=== PATIENT | female | born 1950 | race Caucasian/White ===

== ENCOUNTER 2023-04-23 14:56 | Outpatient (OUT) | payer MEDICARE, OTHER, SELFPAY ==
[2023-04-23 15:39] LABS: Basophils Percent Auto 0.4 % (0.2-2.0); Eosinophils Absolute Auto 0.4 10^3/uL (0.0-0.7); Eosinophils Percent Auto 6.3 % (0.9-7.0); Hematocrit 45.7 % (36.0-48.0); Immature Granulocytes Abs Auto 0.01 10^3/uL (0.00-0.03); Immature Granulocytes Pct Auto 0.2 % (0.0-0.5); Lymphocytes Absolute Auto 1.6 10^3/uL (1.2-3.8); Lymphocytes Percent Auto 28.4 % (20.5-60.0); Mean Corpuscular HGB Conc 32.8 g/dL (29.9-35.2); Mean Corpuscular Hemoglobin 34.3 pg (26.7-34.0); Mean Corpuscular Volume 104.6 fL (81.0-99.0); Mean Platelet Volume 9.2 fL (9.5-13.5); Monocytes Absolute Auto 0.6 10^3/uL (0.3-0.8); Monocytes Percent Auto 10.9 % (1.7-12.0); Neutrophils Absolute Auto 3.1 10^3/uL (1.4-6.5); Neutrophils Percent Auto 53.8 % (43.0-75.0); Platelet Count 174 10^3/uL (150-450); Red Blood Count 4.37 10^6/uL (4.20-5.40); Red Cell Distribution Width 14.9 % (11.0-15.0); White Blood Count 5.7 10^3/uL (4.0-11.0)
[2023-04-23 15:52] LABS: Erythrocyte Sedimentation Rate 47 mm/hr (<=30)
[2023-04-23 15:55] LABS: Alanine Aminotransferase 21 U/L (14-59); Albumin Globulin Ratio 0.9; Albumin Level 3.5 g/dL (3.4-5.0); Alkaline Phosphatase 109 U/L (46-116); Anion Gap 8.1; Aspartate Amino Transferase 17 U/L (15-37); BUN Creatinine Ratio 16.2; Bilirubin Total 0.3 mg/dL (0.2-1.0); Calcium 9.1 mg/dL (8.5-10.1); Chloride 104 mmol/L (98-107); Estimated GFR (African America >60 (>=60); Estimated GFR (Non-African Ame >60 (>=60); Globulin 3.8 g/dL; Glucose 88 mg/dL (74-106); Potassium 4.1 mmol/L (3.5-5.1); Sodium 140 mmol/L (136-145); Total Protein 7.3 g/dL (6.4-8.2); Uric Acid 3.2 mg/dL (2.6-6.0)
== END 2023-04-23 14:57 | disposition home or self-care (01) ==
LOC: LAB 15:04
PROVIDERS: PCP Nurse Practitioner
DX: M05.79 Rheumatoid arthritis with rheumatoid factor of multiple sites without organ or systems involvement (principal); M15.0 Primary generalized (osteo)arthritis; Z79.899 Other long term (current) drug therapy; M10.09 Idiopathic gout, multiple sites
CPT/HCPCS: 36415; 80053; 84550; 85025; 85652

== ENCOUNTER 2023-07-29 08:23 | Outpatient (OUT) | payer MEDICARE, OTHER, SELFPAY ==
[2023-07-29 09:50] LABS: Free T3 2.49 pg/mL (2.18-3.98)
[2023-07-29 10:11] LABS: Free T4 1.34 ng/dL (0.76-1.46)
== END 2023-07-29 08:24 | disposition home or self-care (01) ==
PROVIDERS: PCP Nurse Practitioner; Visit Provider Nurse Practitioner
DX: E03.9 Hypothyroidism, unspecified (principal); E53.8 Deficiency of other specified B group vitamins
CPT/HCPCS: 36415; 82607; 84439; 84443; 84481

== ENCOUNTER 2023-07-29 08:26 | Outpatient (OUT) | payer MEDICARE, OTHER, SELFPAY ==
[2023-07-29 09:24] LABS: Basophils Percent Auto 0.3 % (0.2-2.0); Eosinophils Absolute Auto 0.3 10^3/uL (0.0-0.7); Eosinophils Percent Auto 4.6 % (0.9-7.0); Hematocrit 46.3 % (36.0-48.0); Hemoglobin 14.8 g/dL (12.0-16.0); Immature Granulocytes Abs Auto 0.02 10^3/uL (0.00-0.03); Immature Granulocytes Pct Auto 0.3 % (0.0-0.5); Lymphocytes Absolute Auto 1.2 10^3/uL (1.2-3.8); Lymphocytes Percent Auto 16.2 % (20.5-60.0); Mean Corpuscular Hemoglobin 33.9 pg (26.7-34.0); Mean Corpuscular Volume 105.9 fL (81.0-99.0); Monocytes Absolute Auto 0.5 10^3/uL (0.3-0.8); Monocytes Percent Auto 6.2 % (1.7-12.0); Neutrophils Absolute Auto 5.4 10^3/uL (1.4-6.5); Neutrophils Percent Auto 72.4 % (43.0-75.0); Platelet Count 186 10^3/uL (150-450); Red Blood Count 4.37 10^6/uL (4.20-5.40); Red Cell Distribution Width 14.3 % (11.0-15.0); White Blood Count 7.4 10^3/uL (4.0-11.0)
[2023-07-29 09:29] LABS: Alanine Aminotransferase 15 U/L (14-59); Albumin Globulin Ratio 0.8; Albumin Level 3.4 g/dL (3.4-5.0); Alkaline Phosphatase 92 U/L (46-116); Anion Gap 9.9; Aspartate Amino Transferase 19 U/L (15-37); BUN Creatinine Ratio 13.3; Bilirubin Total 0.5 mg/dL (0.2-1.0); Calcium 8.9 mg/dL (8.5-10.1); Carbon Dioxide 31.5 mmol/L (21.0-32.0); Chloride 99 mmol/L (98-107); Estimated GFR (African America >60 (>=60); Estimated GFR (Non-African Ame >60 (>=60); Globulin 4.1 g/dL; Glucose 156 mg/dL (74-106); Potassium 4.4 mmol/L (3.5-5.1); Sodium 136 mmol/L (136-145); Total Protein 7.5 g/dL (6.4-8.2); Uric Acid 3.1 mg/dL (2.6-6.0)
[2023-07-29 09:32] LABS: Erythrocyte Sedimentation Rate 66 mm/hr (<=30)
== END 2023-07-29 08:27 | disposition home or self-care (01) ==
LOC: LAB 08:28
PROVIDERS: PCP Nurse Practitioner
DX: E03.9 Hypothyroidism, unspecified (principal); E53.8 Deficiency of other specified B group vitamins; M05.79 Rheumatoid arthritis with rheumatoid factor of multiple sites without organ or systems involvement; M15.0 Primary generalized (osteo)arthritis; M10.09 Idiopathic gout, multiple sites; Z79.899 Other long term (current) drug therapy
CPT/HCPCS: 36415; 80053; 82607; 84439; 84443; 84481; 84550; 85025; 85652

== ENCOUNTER 2023-11-22 08:24 | Outpatient (OUT) | payer MEDICARE, OTHER, SELFPAY ==
[2023-11-22 09:21] LABS: Basophils Percent Auto 0.1 % (0.2-2.0); Eosinophils Absolute Auto 0.4 10^3/uL (0.0-0.7); Eosinophils Percent Auto 4.8 % (0.9-7.0); Hematocrit 45.6 % (36.0-48.0); Hemoglobin 14.5 g/dL (12.0-16.0); Immature Granulocytes Abs Auto 0.02 10^3/uL (0.00-0.03); Immature Granulocytes Pct Auto 0.2 % (0.0-0.5); Lymphocytes Percent Auto 11.8 % (20.5-60.0); Mean Corpuscular HGB Conc 31.8 g/dL (29.9-35.2); Mean Corpuscular Hemoglobin 33.5 pg (26.7-34.0); Mean Corpuscular Volume 105.3 fL (81.0-99.0); Mean Platelet Volume 9.2 fL (9.5-13.5); Monocytes Absolute Auto 0.5 10^3/uL (0.3-0.8); Monocytes Percent Auto 5.4 % (1.7-12.0); Neutrophils Absolute Auto 6.6 10^3/uL (1.4-6.5); Neutrophils Percent Auto 77.7 % (43.0-75.0); Platelet Count 165 10^3/uL (150-450); Red Blood Count 4.33 10^6/uL (4.20-5.40); Red Cell Distribution Width 14.4 % (11.0-15.0); White Blood Count 8.5 10^3/uL (4.0-11.0)
[2023-11-22 09:34] LABS: Alanine Aminotransferase 22 U/L (14-59); Albumin Globulin Ratio 0.8; Albumin Level 3.1 g/dL (3.4-5.0); Alkaline Phosphatase 95 U/L (46-116); Anion Gap 11.8; Aspartate Amino Transferase 19 U/L (15-37); BUN Creatinine Ratio 14.6; Bilirubin Total 0.4 mg/dL (0.2-1.0); Carbon Dioxide 29.7 mmol/L (21.0-32.0); Chloride 102 mmol/L (98-107); Estimated GFR (African America >60 (>=60); Estimated GFR (Non-African Ame >60 (>=60); Glucose 200 mg/dL (74-106); Potassium 4.5 mmol/L (3.5-5.1); Sodium 139 mmol/L (136-145); Total Protein 7.1 g/dL (6.4-8.2)
[2023-11-22 10:35] LABS: Erythrocyte Sedimentation Rate 70 mm/hr (<=30)
== END 2023-11-22 08:25 | disposition home or self-care (01) ==
LOC: LAB 08:26
PROVIDERS: PCP Nurse Practitioner; Visit Provider Registered Nurse
DX: M05.79 Rheumatoid arthritis with rheumatoid factor of multiple sites without organ or systems involvement (principal); M15.0 Primary generalized (osteo)arthritis; Z79.899 Other long term (current) drug therapy
CPT/HCPCS: 36415; 80053; 85025; 85652

== ENCOUNTER 2024-03-01 06:34 | Outpatient (OUT) | payer MEDICARE, OTHER, SELFPAY ==
--- OUTSIDE RECORDS SUMMARY | 2024-03-01 06:38 | XMS_ITS | CCD ---
Author Organization [facility] Care Team Providers Care Logistician Name Role Phone MAHDI, BLAINE Unavailable Unavailable MAHDI, BLAINE Unavailable Unavailable MAHDI, BLAINE Unavailable Unavailable MAHDI, BLAINE Unavailable Unavailable AICHHOLZ, IRRIGATIONIST BRUNILDA Primary Care Unavailable MISC, DOCTOR Attending Unavailable MISC, DR SMITH Consulting Unavailable MISC, DOCTOR Admitting Unavailable AICHHOLZ, IRRIGATIONIST BRUNILDA Consulting Unavailable AICHHOLZ, IRRIGATIONIST BRUNILDA Admitting Unavailable AICHHOLZ, IRRIGATIONIST BRUNILDA Primary Care Unavailable AICHHOLZ, IRRIGATIONIST BRUNILDA Attending Unavailable MISC, DR SMITH Admitting Unavailable AICHHOLZ, IRRIGATIONIST BRUNILDA Primary Care Unavailable MISC, DR SMITH Attending Unavailable MISC, DR SMITH Consulting Unavailable AICHHOLZ, IRRIGATIONIST BRUNILDA Attending Unavailable AICHHOLZ, IRRIGATIONIST BRUNILDA Consulting Unavailable AICHHOLZ, IRRIGATIONIST BRUNILDA Primary Care Unavailable AICHHOLZ, IRRIGATIONIST BRUNILDA Admitting Unavailable AICHHOLZ, IRRIGATIONIST BRUNILDA Primary Care Unavailable MISC, DR SMITH Attending Unavailable MISC, DR SMITH Consulting Unavailable AICHHOLZ, IRRIGATIONIST BRUNILDA Admitting Unavailable AICHHOLZ, IRRIGATIONIST BRUNILDA Primary Care Unavailable CARDENAS, DR KAPOOR Admitting Unavailable MOORE, DR KALEIGH Jameson Consulting Unavailable CARDENAS, DR KAPOOR Attending Unavailable CARDENAS, DR KAPOOR Consulting Unavailable MISC, DR SMITH Attending Unavailable AICHHOLZ, IRRIGATIONIST BRUNILDA Primary Care Unavailable MISC, DR SMITH Consulting Unavailable MISC, DR SMITH Admitting Unavailable Aichholz BETTING AGENCY MANAGER-IRRIGATIONIST, Brunilda J Primary Care Provider Allergies Allergy Classification Reported Allergen(s) Allergy Type Date of Onset Reaction(s) Facility (2 sources) Penicillins; Translations: [PENICILLINS] Propensity to adverse reactions to drug (disorder) 6 Rash [facility] (1 source) Piroxicam Drug Allergy 9 [facility] Medications Current Medications Medication Drug Class(es) Dates Sig (Normalized) Sig (Original) acetaminophen 325 mg oral tablet (1 source) Start: 10-30-2016 take 2 tablets by mouth every six hours as needed acetaminophen (TYLENOL) 325 mg tablet Take 650 mg by mouth every 6 (six) hours as needed. 0 10/30/2016 Active 0.8 ml adalimumab 50 mg/ml prefilled syringe (1 source) Tumor Necrosis Factor Kiya adalimumab (HUMIRA) 40 mg/0.8 mL injection Inject 40 mg under the skin Every 14 days. 0 Active allopurinol 300 mg oral tablet (1 source) Xanthine Oxidase Inhibitor take 1 tablet by mouth once daily allopurinol (ZYLOPRIM) 300 mg tablet Take 300 mg by mouth daily. 0 Active calcium citrate/vitamin D3 (CITRACAL REGULAR ORAL) (1 source) take 2 tablets by mouth once daily calcium citrate/vitamin D3 (CITRACAL REGULAR ORAL) Take 2 tablets by mouth daily. 0 Active calcium polycarbophil 625 mg oral tablet (1 source) take 1 tablet by mouth once daily polycarbophil (FIBERCON) 625 mg tablet Take 625 mg by mouth daily. 0 Active cetirizine hydrochloride 10 mg oral tablet (1 source) Histamine-1 Receptor Antagonist take 1 tablet by mouth once daily cetirizine (ZyrTEC) 10 mg tablet Take 10 mg by mouth daily. 0 Active colchicine 0.6 mg oral tablet (1 source) Start: 03-30-2017 take 1 tablet by mouth once daily colchicine (COLCRYS) 0.6 mg tablet Take 0.6 mg by mouth daily. 0 03/30/2017 Active docusate sodium 100 mg oral capsule (1 source) Start: 10-30-2016 take 1 capsule by mouth every twelve hours as needed docusate sodium (COLACE) 100 mg capsule Take 100 mg by mouth every 12 (twelve) hours as needed. 0 10/30/2016 Active folic acid 1 mg oral tablet (1 source) take 1 tablet by mouth once daily folic acid (FOLVITE) 1 mg tablet Take 1 mg by mouth daily. 0 Active furosemide 40 mg oral tablet (1 source) Loop Diuretic Start: 06-13-2016 take 1 tablet by mouth once daily furosemide (LASIX) 40 mg tablet Take 40 mg by mouth daily. 0 06/13/2016 Active gabapentin 300 mg oral capsule (2 sources) Anti-epileptic Agent Start: 06-08-2016 take 1 capsule by mouth once daily gabapentin (NEURONTIN) 300 mg capsule Take 300 mg by mouth nightly. 0 06/08/2016 Active gabapentin (NEUR ONTIN) 100 mg capsule Take 100 mg by mouth daily. !00 mg in AM, and 300 MG in PM 0 Active levothyroxine sodium 0.175 mg oral tablet (1 source) l-Thyroxine Start: 08-04-2019 take 1 tablet by mouth once daily levothyroxine (SYNTHROID, LEVOTHROID) 175 MCG tablet Take 175 mcg by mouth daily. 0 08/04/2019 Active lisinopril 10 mg oral tablet (1 source) Angiotensin Converting Enzyme Inhibitor take 1 tablet by mouth once daily lisinopril (PRINIVIL,ZESTRIL) 10 mg tablet Take 10 mg by mouth daily. 0 Active loratadine 10 mg oral tablet (1 source) take 1 tablet by mouth once daily loratadine (CLARITIN) 10 mg tablet Take 10 mg by mouth daily. 0 Active magnesium hydroxide 80 mg/ml oral suspension (1 source) Start: 10-30-2016 magnesium hydroxide (MILK OF MAGNESIA) 400 mg/5 mL suspension Take 15 mL by mouth. 0 10/30/2016 Active methotrexate 2.5 mg oral tablet (1 source) Folate Analog Metabolic Inhibitor take 1 tablet by mouth every week methotrexate 2.5 mg chemo tablet Take 2.5 mg by mouth once a week 0 Active multivitamin (THERAGRAN) tablet (1 source) take 1 tablet by mouth once daily multivitamin (THERAGRAN) tablet Take 1 tablet by mouth daily. 0 Active omeprazole 20 mg delayed release oral capsule (1 source) Proton Pump Inhibitor take 1 capsule by mouth once daily omeprazole (PriLOSEC) 20 mg capsule Take 20 mg by mouth daily. 0 Active microencapsulated potassium chloride 10 meq extended release oral tablet (1 source) Start: 03-30-2017 potassium chloride (K-DUR,KLOR-CON) 10 MEQ CR tablet Take 10 mEq by mouth daily. 0 03/30/2017 Active predniSONE 5 mg oral tablet (1 source) take 1 tablet by mouth once daily predniSONE (DELTASONE) 5 mg tablet Take 5 mg by mouth daily. 0 Active vitamin b12 1 mg/ml injectable solution (1 source) Vitamin B12 cyanocobalamin (VITAMIN B-12) 1,000 mcg/mL injection Inject 1,000 mcg into the appropriate muscle every 30 (thirty) days. 0 Active Problems Problem Classification Problem Date Documented Date Episodic/Chronic Cancer of other female genital organs (1 source) Vulval intraepithelial neoplasia grade 3; Translations: [Carcinoma in situ of vulva] Onset: 10-04-2019 10-04-2019 Chronic Gout and other crystal arthropathies (1 source) Idiopathic gout, multiple sites; Translations: [IDIOPATHIC GOUT MULTIPLE SITES] Onset: 01-15-2023 Chronic Osteoarthritis (1 source) Primary generalized (osteo)arthritis; Translations: [PRIMARY GENERALIZED OSTEOARTHRITIS] Onset: 01-15-2023 Chronic Osteoporosis (4 sources) Age-related osteoporosis without current pathological fracture; Translations: [AGE-REL OSTEOPOR W/O CURR PATH FX] Onset: 01-19-2022 Chronic Other aftercare (1 source) Other prison (current) drug therapy; Translations: [OTH PENITENTIARY CURRENT DRUG THERAPY] Onset: 01-15-2023 Episodic Other nutritional; endocrine; and metabolic disorders (1 source) Body mass index 40+ - severely obese; Translations: [Body mass index (BMI) 45.0-49.9, adult] Onset: 09-27-2019 09-27-2019 Chronic Rheumatoid arthritis and related disease (5 sources) Rheumatoid arthritis with rheumatoid factor of multiple sites without organ or systems involvement; Translations: [RA W/RH FACTOR MX SITE NO ORGAN/SYS] Onset: 10-14-2022 Chronic Thyroid disorders (4 sources) Hypothyroidism, unspecified; Translations: [HYPOTHYROIDISM UNSPECIFIED] Onset: 10-13-2022 Chronic Unclassified (1 source) Unknown / UNK(Unknown) Onset: 04-15-2018 Results Test Name Value Interpretation Reference Range Facility CBC AUTO DIFFon 01-12-2023 BASO # 0.0 103/ul Normal 0.0-0.1 [facility] Comment on above: Performed By: #### TSH #### [facility] [address] [address] [address] Marla Varner Basophils/100 WBC (Bld) 0.1 % Critically low 0.2-2.0 [facility] Comment on above: Performed By: #### TSH #### [facility] [address] [address] [address] Marla Varner EO # 0.3 103/ul Normal 0.0-0.7 [facility] Comment on above: Performed By: #### TSH #### [facility] [address] [place] [address] Dr. Marla Varner Eosinophils/100 WBC (Bld) 4.6 % Normal 0.9-7.0 [facility] Comment on above: Performed By: #### TSH #### [facility] [address] [place] [address] Dr. Marla Varner Erythrocyte distribution width (RBC) [Ratio] 14.6 % Normal 11.0-15.0 [facility] Comment on above: Performed By: #### TSH #### [facility] [address] [place] [address] Dr. Marla Varner Hematocrit (Bld) [Volume fraction] 46.0 % Normal 36.0-48.0 [facility] Comment on above: Performed By: #### TSH #### [facility] [address] [place] [address] Dr. Marla Varner Hemoglobin (Bld) [Mass/Vol] 15.1 g/dL Normal 12.0-16.0 [facility] Comment on above: Performed By: #### TSH #### [facility] [address] [place] [address] Dr. Marla Varner IG # 0.01 10e3/ul Normal 0.00-0.03 [facility] Comment on above: Performed By: #### TSH #### [facility] [address] [place] [address] Dr. Marla Varner IG % 0.1 % Normal 0.0-0.5 [facility] Comment on above: Performed By: #### TSH #### [facility] [address] [place] [address] Dr. Marla Varner LYMPH # 1.3 103/ul Normal 1.2-3.8 [facility] Comment on above: Performed By: #### TSH #### [facility] [address] [place] [address] Dr. Marla Varner Lymphocytes/100 WBC (Bld) 19.7 % Critically low 20.5-60.0 [facility] Comment on above: Performed By: #### TSH #### [facility] [address] [place] [address] Dr. Marla Varner MANUAL DIFF REQ NO Normal [facility] Comment on above: Performed By: #### TSH #### [facility] [address] [place] [address] Dr. Marla Varner MCH (RBC) [Entitic mass] 33.6 pg Normal 26.7-34.0 [facility] Comment on above: Performed By: #### TSH #### [facility] [address] [place] [address] Dr. Marla Varner MCHC (RBC) [Mass/Vol] 32.8 g/dL Normal 29.9-35.2 [facility] Comment on above: Performed By: #### TSH #### [facility] [address] [place] [address] Dr. Marla Varner MCV (RBC) [Entitic vol] 102.4 fL Critically high 81.0-99.0 [facility] Comment on above: Performed By: #### TSH #### [facility] [address] [place] [address] Dr. Marla Varner MONO # 0.5 103/ul Normal 0.3-0.8 [facility] Comment on above: Performed By: #### TSH #### [facility] [address] [place] [address] Dr. Marla Varner Monocytes/100 WBC (Bld) 7.3 % Normal 1.7-12.0 [facility] Comment on above: Performed By: #### TSH #### [facility] [address] [place] [address] Dr. Marla Varner NEUT # 4.6 103/ul Normal 1.4-6.5 [facility] Comment on above: Performed By: #### TSH #### [facility] [address] [place] [address] Dr. Marla Varner Neutrophils/100 WBC (Bld) 68.2 % Normal 43.0-75.0 [facility] Comment on above: Performed By: #### TSH #### [facility] [address] [place] [address] Dr. Marla Varner Platelet mean volume (Bld) [Entitic vol] 9.1 fL Critically low 9.5-13.5 [facility] Comment on above: Performed By: #### TSH #### [facility] [address] [place] [address] Dr. Marla Varner PLT 194 103/ul Normal 150-450 [facility] Comment on above: Performed By: #### TSH #### [facility] [address] [place] [address] Dr. Marla Varner RBC 4.49 106/ul Normal 4.20-5.40 [facility] Comment on above: Performed By: #### TSH #### [facility] [address] [place] [address] Dr. Marla Varner WBC 6.7 103/ul Normal 4.0-11.0 [facility] Comment on above: Performed By: #### TSH #### [facility] [address] [place] [address] Dr. Marla Varner PROF 14(COMP METB)on 023 Albumin [Mass/Vol] 3.6 g/dL Normal 3.4-5.0 [facility] Comment on above: Performed By: #### URIC, CMP #### [facility] [address] [place] [address] Dr. Marla Varner Albumin/Globulin [Mass ratio] 1.0 {ratio} Normal [facility] Comment on above: Performed By: #### URIC, CMP #### [facility] [address] [place] [address] Dr. Marla Varner ALP [Catalytic activity/Vol] 93 U/L Normal 46-116 [facility] Comment on above: Performed By: #### URIC, CMP #### [facility] [address] [place] [address] Dr. Marla Varner ALT [Catalytic activity/Vol] 26 U/L Normal 14-59 [facility] Comment on above: Performed By: #### URIC, CMP #### [facility] [address] [place] [address] Dr. Marla Varner Anion gap [Moles/Vol] 12.3 mmol/L Normal [facility] Comment on above: Performed By: #### URIC, CMP #### [facility] [address] [address] [address] Marla Varner AST [Catalytic activity/Vol] 20 U/L Normal 15-37 [facility] Comment on above: Performed By: #### URIC, CMP #### [facility] [address] [place] [address] Dr. Marla Varner Bilirubin [Mass/Vol] 0.4 mg/dL Normal 0.2-1.0 [facility] Comment on above: Performed By: #### URIC, CMP #### [facility] [address] [place] [address] Dr. Marla Varner Calcium [Mass/Vol] 9.2 mg/dL Normal 8.5-10.1 [facility] Comment on above: Performed By: #### URIC, CMP #### [facility] [address] [address] [address] Marla Varner Chloride [Moles/Vol] 102 mmol/L Normal 98-107 [facility] Comment on above: Performed By: #### URIC, CMP #### [facility] [address] [place] [address] Dr. Marla Varner CO2 [Moles/Vol] 32.3 mmol/L Critically high 21.0-32.0 [facility] Comment on above: Performed By: #### URIC, CMP #### [facility] [address] [address] [address] Marla Varner Creatinine [Mass/Vol] 0.84 mg/dL Normal 0.55-1.02 [facility] Comment on above: Performed By: #### URIC, CMP #### [facility] [address] [place] [address] Dr. Marla Varner EGFR-AF ANGOLAN >60 Normal >=60 [facility] Comment on above: Performed By: #### URIC, CMP #### [facility] [address] [place] [address] Dr. Marla Varner EGFR-NON AF ANGOLAN >60 Normal >=60 [facility] Comment on above: Performed By: #### URIC, CMP #### [facility] [address] [address] [address] Marla Varner Globulin (S) [Mass/Vol] 3.7 g/dL Normal [facility] Comment on above: Performed By: #### URIC, CMP #### [facility] [address] [address] [address] Marla Varner Glucose [Mass/Vol] 114 mg/dL Critically high 74-106 [facility] Comment on above: Performed By: #### URIC, CMP #### [facility] [address] [address] [address] Marla Varner Potassium [Moles/Vol] 4.6 mmol/L Normal 3.5-5.1 [facility] Comment on above: Performed By: #### URIC, CMP #### [facility] [address] [address] [address] Marla Varner Protein [Mass/Vol] 7.3 g/dL Normal 6.4-8.2 [facility] Comment on above: Performed By: #### URIC, CMP #### [facility] [address] [address] [address] Marla Varner Sodium [Moles/Vol] 142 mmol/L Normal 136-145 [facility] Comment on above: Performed By: #### URIC, CMP #### [facility] [address] [address] [address] Marla Varner Urea nitrogen [Mass/Vol] 15.0 mg/dL Normal 7.0-18.0 [facility] Comment on above: Performed By: #### URIC, CMP #### [facility] [address] [address] [address] Marla Varner Urea nitrogen/Creatin ine [Mass ratio] 17.9 mg/mg Normal [facility] Comment on above: Performed By: #### URIC, CMP #### [facility] [address] [address] [address] Marla Varner SED RATE [facility] 2022 SED RATE 47 mm/hr Critically high <=30 [facility] Comment on above: Performed By: #### SEDR #### [facility] [address] [place] [address] Dr. Marla Varner URIC ACID SERUMon 01-12-2023 Urate [Mass/Vol] 3.3 mg/dL Normal 2.6-6.0 [facility] Comment on above: Performed By: #### URIC, CMP #### [facility] [address] [place] [address] Dr. Marla Varner CBC AUTO DIFFon 10-13-2022 BASO # 0.0 103/ul Normal 0.0-0.1 [facility] Comment on above: Performed By: #### INSULT #### [facility] [address] [place] [address] Dr. Marla Varner Basophils/100 WBC (Bld) 0.3 % Normal 0.2-2.0 [facility] Comment on above: Performed By: #### INSULT #### [facility] [address] [place] [address] Dr. Marla Varner EO # 0.4 103/ul Normal 0.0-0.7 [facility] Comment on above: Performed By: #### INSULT #### [facility] [address] [place] [address] Dr. Marla Varner Eosinophils/100 WBC (Bld) 5.8 % Normal 0.9-7.0 [facility] Comment on above: Performed By: #### INSULT #### [facility] [address] [place] [address] Dr. Marla Varner Erythrocyte distribution width (RBC) [Ratio] 14.8 % Normal 11.0-15.0 [facility] Comment on above: Performed By: #### INSULT #### [facility] [address] [place] [address] Dr. Marla Varner Hematocrit (Bld) [Volume fraction] 44.4 % Normal 36.0-48.0 [facility] Comment on above: Performed By: #### INSULT #### [facility] [address] [place] [address] Dr. Marla Varner Hemoglobin (Bld) [Mass/Vol] 14.6 g/dL Normal 12.0-16.0 [facility] Comment on above: Performed By: #### INSULT #### [facility] [address] [place] [address] Dr. Marla Varner IG # 0.02 10e3/ul Normal 0.00-0.03 [facility] Comment on above: Performed By: #### INSULT #### [facility] [address] [place] [address] Dr. Marla Varner IG % 0.3 % Normal 0.0-0.5 [facility] Comment on above: Performed By: #### INSULT #### [facility] [address] [place] [address] Dr. Marla Varner LYMPH # 1.6 103/ul Normal 1.2-3.8 [facility] Comment on above: Performed By: #### INSULT #### [facility] [address] [place] [address] Dr. Marla Varner Lymphocytes/100 WBC (Bld) 21.6 % Normal 20.5-60.0 [facility] Comment on above: Performed By: #### INSULT #### [facility] [address] [place] [address] Dr. Marla Varner MANUAL DIFF REQ NO Normal [facility] Comment on above: Performed By: #### INSULT #### [facility] [address] [place] [address] Dr. Marla Varner MCH (RBC) [Entitic mass] 33.8 pg Normal 26.7-34.0 [facility] Comment on above: Performed By: #### INSULT #### [facility] [address] [place] [address] Dr. Marla Varner MCHC (RBC) [Mass/Vol] 32.9 g/dL Normal 29.9-35.2 [facility] Comment on above: Performed By: #### INSULT #### [facility] [address] [place] [address] Dr. Marla Varner MCV (RBC) [Entitic vol] 102.8 fL Critically high 81.0-99.0 [facility] Comment on above: Performed By: #### INSULT #### [facility] [address] [address] [address] Marla Varner MONO # 0.5 103/ul Normal 0.3-0.8 [facility] Comment on above: Performed By: #### INSULT #### [facility] [address] [address] [address] Marla Varner Monocytes/100 WBC (Bld) 6.9 % Normal 1.7-12.0 [facility] Comment on above: Performed By: #### INSULT #### [facility] [address] [place] [address] Dr. Marla Varner NEUT # 4.7 103/ul Normal 1.4-6.5 [facility] Comment on above: Performed By: #### INSULT #### [facility] [address] [place] [address] Dr. Marla Varner Neutrophils/100 WBC (Bld) 65.1 % Normal 43.0-75.0 [facility] Comment on above: Performed By: #### INSULT #### [facility] [address] [place] [address] Dr. Marla Varner Platelet mean volume (Bld) [Entitic vol] 9.3 fL Critically low 9.5-13.5 [facility] Comment on above: Performed By: #### INSULT #### [facility] [address] [place] [address] Dr. Marla Varner PLT 200 103/ul Normal 150-450 [facility] Comment on above: Performed By: #### INSULT #### [facility] [address] [place] [address] Dr. Marla Varner RBC 4.32 106/ul Normal 4.20-5.40 [facility] Comment on above: Performed By: #### INSULT #### [facility] [address] [place] [address] Dr. Marla Varner WBC 7.2 103/ul Normal 4.0-11.0 [facility] Comment on above: Performed By: #### INSULT #### [facility] [facility] [address] [place] [address] Dr. Marla Varner FREE T3on 10-13-2022 FREE T3 2.20 pg/mlL Normal 2.18-3.98 [facility] Comment on above: Performed By: #### TSH #### [facility] [address] [place] [address] Dr. Marla Varner FREE T4on 10-13-2022 Free T4 [Mass/Vol] 1.30 ng/dL Normal 0.76-1.46 [facility] Comment on above: Performed By: #### TSH #### [facility] [address] [place] [address] Dr. Marla Varner PROF 14(COMP METB)on 022 Albumin [Mass/Vol] 3.4 g/dL Normal 3.4-5.0 [facility] Comment on above: Performed By: #### CMP, URIC #### [facility] [address] [place] [address] Dr. Marla Varner Albumin/Globulin [Mass ratio] 0.9 {ratio} Normal [facility] Comment on above: Performed By: #### CMP, URIC #### [facility] [address] [place] [address] Dr. Marla Varner ALP [Catalytic activity/Vol] 92 U/L Normal 46-116 [facility] Comment on above: Performed By: #### CMP, URIC #### [facility] [address] [place] [address] Dr. Marla Varner ALT [Catalytic activity/Vol] 17 U/L Normal 14-59 [facility] Comment on above: Performed By: #### CMP, URIC #### [facility] [address] [place] [address] Dr. Marla Varner Anion gap [Moles/Vol] 10.7 mmol/L Normal [facility] Comment on above: Performed By: #### CMP, URIC #### [facility] [address] [place] [address] Dr. Marla Varner AST [Catalytic activity/Vol] 17 U/L Normal 15-37 [facility] Comment on above: Performed By: #### CMP, URIC #### [facility] [address] [address] [address] Marla Varner Bilirubin [Mass/Vol] 0.4 mg/dL Normal 0.2-1.0 [facility] Comment on above: Performed By: #### CMP, URIC #### [facility] [address] [place] [address] Dr. Marla Varner Calcium [Mass/Vol] 8.8 mg/dL Normal 8.5-10.1 [facility] Comment on above: Performed By: #### CMP, URIC #### [facility] [address] [place] [address] Dr. Marla Varner Chloride [Moles/Vol] 101 mmol/L Normal 98-107 [facility] Comment on above: Performed By: #### CMP, URIC #### [facility] [address] [place] [address] Dr. Maral Varner CO2 [Moles/Vol] 32.5 mmol/L Critically high 21.0-32.0 [facility] Comment on above: Performed By: #### CMP, URIC #### [facility] [address] [place] [address] Dr. Marla Varner Creatinine [Mass/Vol] 0.72 mg/dL Normal 0.55-1.02 [facility] Comment on above: Performed By: #### CMP, URIC #### [facility] [address] [place] [address] Dr. Marla Varner EGFR-AF ANGOLAN >60 Normal >=60 [facility] Comment on above: Performed By: #### CMP, URIC #### [facility] [address] [place] [address] Dr. Marla Varner EGFR-NON AF ANGOLAN >60 Normal >=60 [facility] Comment on above: Performed By: #### CMP, URIC #### [facility] [address] [place] [address] Dr. Marla Varner Globulin (S) [Mass/Vol] 3.8 g/dL Normal [facility] Comment on above: Performed By: #### CMP, URIC #### [facility] [address] [place] [address] Dr. Marla Varner Glucose [Mass/Vol] 101 mg/dL Normal 74-106 [facility] Comment on above: Performed By: #### CMP, URIC #### [facility] [address] [address] [address] Marla Varner Potassium [Moles/Vol] 4.2 mmol/L Normal 3.5-5.1 [facility] Comment on above: Performed By: #### CMP, URIC #### [facility] [address] [address] [address] Marla Varner Protein [Mass/Vol] 7.2 g/dL Normal 6.4-8.2 [facility] Comment on above: Performed By: #### CMP, URIC #### [facility] [address] [address] [address] Marla Varner Sodium [Moles/Vol] 140 mmol/L Normal 136-145 [facility] Comment on above: Performed By: #### CMP, URIC #### [facility] [address] [address] [address] Marla Varner Urea nitrogen [Mass/Vol] 11.0 mg/dL Normal 7.0-18.0 [facility] Comment on above: Performed By: #### CMP, URIC #### [facility] [address] [address] [address] Marla Varner Urea nitrogen/Creatin ine [Mass ratio] 15.3 mg/mg Normal [facility] Comment on above: Performed By: #### CMP, URIC #### [facility] [address] [address] [address] Marla Varner SED RATE [facility] 2021 SED RATE 51 mm/hr Critically high <=30 [facility] Comment on above: Performed By: #### SEDR #### [facility] [address] [address] [address] Marla Varner TSHon 10-13-2022 TSH 1.307 uIU/mL Normal 0.358-3.740 [facility] Comment on above: Performed By: #### TSH #### [facility] [address] [place] [address] Dr. Marla Varner URIC ACID SERUMon 10-13-2022 Urate [Mass/Vol] 3.2 mg/dL Normal 2.6-6.0 [facility] Comment on above: Performed By: #### CMP, URIC #### [facility] [address] [place] [address] Dr. Marla Varner INSULIN FREE AND TOTALon Free Insulin 17 uU/mL Normal [facility] Comment on above: Result Comment: Reference Range: Pubertal Children and Adults (fasting): 0 - 17 Performed By: #### I NSULT #### [facility] [address] [place] [address] Dr. Marla Varner Total Insulin 17 uU/mL Normal [facility] Comment on above: Result Comment: Non-Diabetic: In the abs ence of insulin-binding antibodies, the free and total insulin assays are equivalent. However, this assay is intended for use in diabetics with insulin autoantibody present. Measurement is performed on acid-treated samples and, therefore, the sensitivity and absolute values by this method may differ from our direct insulin ICMA. Insulin Dependent Diabetic Patients: Free Insulin levels vary depending on the capacity and affinity of circulating insulin-binding antibodies and the dose of insulin given to the patient. Total insulin levels represent free insulin and antibody bound insulin fractions. This test was developed and its performance characteristics determined by [employer]. It has not been cleared or approved by the Food and Drug Administration. Performed By: #### I NSULT #### [facility] [address] [place] [address] Dr. Marla Varner CBC AUTO DIFFon 07-21-2022 BASO # 0.0 103/ul Normal 0.0-0.1 [facility] Comment on above: Performed By: #### TSH #### [facility] [address] [place] [address] Dr. Marla Varner Basophils/100 WBC (Bld) 0.3 % Normal 0.2-2.0 [facility] Comment on above: Performed By: #### TSH #### [facility] [address] [place] [address] Dr. Marla Varner EO # 0.2 103/ul Normal 0.0-0.7 [facility] Comment on above: Performed By: #### TSH #### [facility] [address] [place] [address] Dr. Marla Varner Eosinophils/100 WBC (Bld) 2.7 % Normal 0.9-7.0 [facility] Comment on above: Performed By: #### TSH #### [facility] [address] [place] [address] Dr. Marla Varner Erythrocyte distribution width (RBC) [Ratio] 14.8 % Normal 11.0-15.0 [facility] Comment on above: Performed By: #### TSH #### [facility] [address] [place] [address] Dr. Marla Varner Hematocrit (Bld) [Volume fraction] 47.6 % Normal 36.0-48.0 [facility] Comment on above: Performed By: #### TSH #### [facility] [address] [place] [address] Dr. Marla Varner Hemoglobin (Bld) [Mass/Vol] 15.4 g/dL Normal 12.0-16.0 [facility] Comment on above: Performed By: #### TSH #### [facility] [address] [place] [address] Dr. Marla Varner IG # 0.03 10e3/ul Normal 0.00-0.03 [facility] Comment on above: Performed By: #### TSH #### [facility] [address] [place] [address] Dr. Marla Varner IG % 0.4 % Normal 0.0-0.5 [facility] Comment on above: Performed By: #### TSH #### [facility] [address] [place] [address] Dr. Marla Varner LYMPH # 1.6 103/ul Normal 1.2-3.8 [facility] Comment on above: Performed By: #### TSH #### [facility] [address] [place] [address] Dr. Marla Varner Lymphocytes/100 WBC (Bld) 21.1 % Normal 20.5-60.0 [facility] Comment on above: Performed By: #### TSH #### [facility] [address] [place] [address] Dr. Marla Varner MANUAL DIFF REQ NO Normal [facility] Comment on above: Performed By: #### TSH #### [facility] [address] [place] [address] Dr. Marla Varner MCH (RBC) [Entitic mass] 34.2 pg Critically high 26.7-34.0 [facility] Comment on above: Performed By: #### TSH #### [facility] [address] [place] [address] Dr. Marla Varner MCHC (RBC) [Mass/Vol] 32.4 g/dL Normal 29.9-35.2 [facility] Comment on above: Performed By: #### TSH #### [facility] [address] [place] [address] Dr. Marla Varner MCV (RBC) [Entitic vol] 105.8 fL Critically high 81.0-99.0 [facility] Comment on above: Performed By: #### TSH #### [facility] [address] [place] [address] Dr. Marla Varner MONO # 0.5 103/ul Normal 0.3-0.8 [facility] Comment on above: Performed By: #### TSH #### [facility] [address] [place] [address] Dr. Marla Varner Monocytes/100 WBC (Bld) 7.4 % Normal 1.7-12.0 [facility] Comment on above: Performed By: #### TSH #### [facility] [address] [place] [address] Dr. Marla Varner NEUT # 5.0 103/ul Normal 1.4-6.5 [facility] Comment on above: Performed By: #### TSH #### [facility] [address] [place] [address] Dr. Marla Varner Neutrophils/100 WBC (Bld) 68.1 % Normal 43.0-75.0 [facility] Comment on above: Performed By: #### TSH #### [facility] [address] [place] [address] Dr. Marla Varner Platelet mean volume (Bld) [Entitic vol] 10.5 fL Normal 9.5-13.5 [facility] Comment on above: Performed By: #### TSH #### [facility] [address] [address] [address] Malra Varner PLT 207 103/ul Normal 150-450 [facility] Comment on above: Performed By: #### TSH #### [facility] [address] [place] [address] Dr. Marla Varner RBC 4.50 106/ul Normal 4.20-5.40 [facility] Comment on above: Performed By: #### TSH #### [facility] [address] [place] [address] Dr. Marla Varner WBC 7.3 103/ul Normal 4.0-11.0 [facility] Comment on above: Performed By: #### TSH #### [facility] [address] [place] [address] Dr. Marla Varner FREE T4on 07-21-2022 Free T4 [Mass/Vol] 1.75 ng/dL Critically high 0.76-1.46 [facility] Comment on above: Performed By: #### TSH #### [facility] [address] [place] [address] Dr. Marla Varner PROF 14(COMP METB)on 022 Albumin [Mass/Vol] 3.7 g/dL Normal 3.4-5.0 [facility] Comment on above: Performed By: #### INSULT #### [facility] [address] [place] [address] Dr. Marla Varner Albumin/Globulin [Mass ratio] 1.0 {ratio} Normal [facility] Comment on above: Performed By: #### INSULT #### [facility] [address] [place] [address] Dr. Marla Varner ALP [Catalytic activity/Vol] 99 U/L Normal 46-116 [facility] Comment on above: Performed By: #### INSULT #### [facility] [address] [place] [address] Dr. Marla Varner ALT [Catalytic activity/Vol] 25 U/L Normal 14-59 [facility] Comment on above: Performed By: #### INSULT #### [facility] [address] [place] [address] Dr. Marla Varner Anion gap [Moles/Vol] 15.7 mmol/L Normal [facility] Comment on above: Performed By: #### INSULT #### [facility] [address] [place] [address] Dr. Marla Varner AST [Catalytic activity/Vol] 20 U/L Normal 15-37 [facility] Comment on above: Performed By: #### INSULT #### [facility] [address] [place] [address] Dr. Marla Varner Bilirubin [Mass/Vol] 0.4 mg/dL Normal 0.2-1.0 [facility] Comment on above: Performed By: #### INSULT #### [facility] [address] [place] [address] Dr. Marla Varner Calcium [Mass/Vol] 8.9 mg/dL Normal 8.5-10.1 [facility] Comment on above: Performed By: #### INSULT #### [facility] [address] [place] [address] Dr. Marla Varner Chloride [Moles/Vol] 99 mmol/L Normal 98-107 [facility] Comment on above: Performed By: #### INSULT #### [facility] [address] [place] [address] Dr. Marla Varner CO2 [Moles/Vol] 25.3 mmol/L Normal 21.0-32.0 [facility] Comment on above: Performed By: #### INSULT #### [facility] [address] [place] [address] Dr. Marla Varner Creatinine [Mass/Vol] 0.80 mg/dL Normal 0.55-1.02 [facility] Comment on above: Performed By: #### INSULT #### [facility] [address] [place] [address] Dr. Marla Varner EGFR-AF ANGOLAN >60 Normal >=60 [facility] Comment on above: Performed By: #### INSULT #### [facility] [address] [address] [address] Marla Varner EGFR-NON AF ANGOLAN >60 Normal >=60 [facility] Comment on above: Performed By: #### INSULT #### [facility] [address] [address] [address] Marla Varner Globulin (S) [Mass/Vol] 3.6 g/dL Normal [facility] Comment on above: Performed By: #### INSULT #### [facility] [address] [address] [address] Marla Varner Glucose [Mass/Vol] 113 mg/dL Critically high 74-106 [facility] Comment on above: Performed By: #### INSULT #### [facility] [address] [place] [address] Dr. Marla Varner Potassium [Moles/Vol] 4.0 mmol/L Normal 3.5-5.1 [facility] Comment on above: Performed By: #### INSULT #### [facility] [address] [place] [address] Dr. Marla Varner Protein [Mass/Vol] 7.3 g/dL Normal 6.4-8.2 [facility] Comment on above: Performed By: #### INSULT #### [facility] [address] [place] [address] Dr. Marla Varenr Sodium [Moles/Vol] 136 mmol/L Normal 136-145 [facility] Comment on above: Performed By: #### INSULT #### [facility] [address] [place] [address] Dr. Marla Varner Urea nitrogen [Mass/Vol] 10.0 mg/dL Normal 7.0-18.0 [facility] Comment on above: Performed By: #### INSULT #### [facility] [address] [place] [address] Dr. Marla Varner Urea nitrogen/Creatin ine [Mass ratio] 12.5 mg/mg Normal [facility] Comment on above: Performed By: #### INSULT #### [facility] [address] [address] [address] Marla Varner SED RATE [facility] 2021 SED RATE 34 mm/hr Critically high <=30 [facility] Comment on above: Performed By: #### TSH #### [facility] [address] [place] [address] Dr. Marla Varner TSHon 07-21-2022 TSH 0.152 uIU/mL Critically low 0.358-3.740 [facility] Comment on above: Performed By: #### TSH #### [facility] [address] [place] [address] Dr. Marla Varner URIC ACID SERUMon 07-21-2022 Urate [Mass/Vol] 3.3 mg/dL Normal 2.6-6.0 [facility] Comment on above: Performed By: #### INSULT #### [facility] [address] [place] [address] Dr. Marla Varner CBC AUTO DIFFon 04-21-2022 BASO # 0.0 103/ul Normal 0.0-0.1 [facility] Comment on above: Performed By: #### TSH #### [facility] [address] [place] [address] Dr. Marla Varner Basophils/100 WBC (Bld) 0.1 % Critically low 0.2-2.0 [facility] Comment on above: Performed By: #### TSH #### [facility] [address] [place] [address] Dr. Marla Varner EO # 0.4 103/ul Normal 0.0-0.7 [facility] Comment on above: Performed By: #### TSH #### [facility] [address] [place] [address] Dr. Marla Varner Eosinophils/100 WBC (Bld) 5.1 % Normal 0.9-7.0 [facility] Comment on above: Performed By: #### TSH #### [facility] [address] [place] [address] Dr. Marla Varner Erythrocyte distribution width (RBC) [Ratio] 14.5 % Normal 11.0-15.0 [facility] Comment on above: Performed By: #### TSH #### [facility] [address] [address] [address] Marla Varner Hematocrit (Bld) [Volume fraction] 45.7 % Normal 36.0-48.0 [facility] Comment on above: Performed By: #### TSH #### [facility] [address] [address] [address] Marla Varner Hemoglobin (Bld) [Mass/Vol] 14.6 g/dL Normal 12.0-16.0 [facility] Comment on above: Performed By: #### TSH #### [facility] [address] [address] [address] Marla Varner IG # 0.03 10e3/ul Normal 0.00-0.03 [facility] Comment on above: Performed By: #### TSH #### [facility] [address] [address] [address] Marla Varner IG % 0.4 % Normal 0.0-0.5 [facility] Comment on above: Performed By: #### TSH #### [facility] [address] [address] [address] Marla Varner LYMPH # 0.9 103/ul Critically low 1.2-3.8 [facility] Comment on above: Performed By: #### TSH #### [facility] [address] [place] [address] Dr. Marla Varner Lymphocytes/100 WBC (Bld) 11.3 % Critically low 20.5-60.0 [facility] Comment on above: Performed By: #### TSH #### [facility] [address] [address] [address] Marla Varner MANUAL DIFF REQ NO Normal [facility] Comment on above: Performed By: #### TSH #### [facility] [address] [place] [address] Dr. Marla Varner MCH (RBC) [Entitic mass] 33.4 pg Normal 26.7-34.0 [facility] Comment on above: Performed By: #### TSH #### [facility] [address] [address] [address] Marla Varner MCHC (RBC) [Mass/Vol] 31.9 g/dL Normal 29.9-35.2 [facility] Comment on above: Performed By: #### TSH #### [facility] [address] [address] [address] Marla Varner MCV (RBC) [Entitic vol] 104.6 fL Critically high 81.0-99.0 [facility] Comment on above: Performed By: #### TSH #### [facility] [address] [address] [address] Marla Varner MONO # 0.3 103/ul Normal 0.3-0.8 [facility] Comment on above: Performed By: #### TSH #### [facility] [address] [place] [address] Dr. Marla Varner Monocytes/100 WBC (Bld) 3.9 % Normal 1.7-12.0 [facility] Comment on above: Performed By: #### TSH #### [facility] [address] [place] [address] Dr. Marla Varner NEUT # 6.1 103/ul Normal 1.4-6.5 [facility] Comment on above: Performed By: #### TSH #### [facility] [address] [place] [address] Dr. Marla Varner Neutrophils/100 WBC (Bld) 79.2 % Critically high 43.0-75.0 [facility] Comment on above: Performed By: #### TSH #### [facility] [address] [address] [address] Marla Varner Platelet mean volume (Bld) [Entitic vol] 10.4 fL Normal 9.5-13.5 [facility] Comment on above: Performed By: #### TSH #### [facility] [address] [place] [address] Dr. Marla Varner PLT 195 103/ul Normal 150-450 [facility] Comment on above: Performed By: #### TSH #### [facility] [address] [place] [address] Dr. Marla Varner RBC 4.37 106/ul Normal 4.20-5.40 [facility] [facility] Comment on above: Performed By: #### TSH #### [facility] [address] [place] [address] Dr. Marla Varner WBC 7.7 103/ul Normal 4.0-11.0 [facility] Comment on above: Performed By: #### TSH #### [facility] [address] [place] [address] Dr. Marla Varner PROF 14(COMP METB)on 022 Albumin [Mass/Vol] 3.3 g/dL Critically low 3.4-5.0 [facility] Comment on above: Performed By: #### URIC, CMP #### [facility] [address] [place] [address] Dr. Marla Varner Albumin/Globulin [Mass ratio] 0.8 {ratio} Normal [facility] Comment on above: Performed By: #### URIC, CMP #### [facility] [address] [place] [address] Dr. Marla Varner ALP [Catalytic activity/Vol] 97 U/L Normal 46-116 [facility] Comment on above: Performed By: #### URIC, CMP #### [facility] [address] [place] [address] Dr. Marla Varner ALT [Catalytic activity/Vol] 26 U/L Normal 14-59 [facility] Comment on above: Performed By: #### URIC, CMP #### [facility] [address] [place] [address] Dr. Marla Varner Anion gap [Moles/Vol] 18.0 mmol/L Normal [facility] Comment on above: Performed By: #### URIC, CMP #### [facility] [address] [place] [address] Dr. Marla Varner AST [Catalytic activity/Vol] 17 U/L Normal 15-37 [facility] Comment on above: Performed By: #### URIC, CMP #### [facility] [address] [place] [address] Dr. Marla Varner Bilirubin [Mass/Vol] 0.5 mg/dL Normal 0.2-1.0 [facility] Comment on above: Performed By: #### URIC, CMP #### [facility] [address] [place] [address] Dr. Marla Varner Calcium [Mass/Vol] 8.8 mg/dL Normal 8.5-10.1 [facility] Comment on above: Performed By: #### URIC, CMP #### [facility] [address] [place] [address] Dr. Marla Varner Chloride [Moles/Vol] 100 mmol/L Normal 98-107 [facility] Comment on above: Performed By: #### URIC, CMP #### [facility] [address] [place] [address] Dr. Marla Varner CO2 [Moles/Vol] 25.3 mmol/L Normal 21.0-32.0 [facility] Comment on above: Performed By: #### URIC, CMP #### [facility] [address] [place] [address] Dr. Marla Varner Creatinine [Mass/Vol] 0.95 mg/dL Normal 0.55-1.02 [facility] Comment on above: Performed By: #### URIC, CMP #### [facility] [address] [place] [address] Dr. Marla Varner EGFR-AF ANGOLAN >60 Normal >=60 [facility] Comment on above: Performed By: #### URIC, CMP #### [facility] [address] [place] [address] Dr. Marla Varner EGFR-NON AF ANGOLAN 58 mL/min/1.73m2 Critically low >=60 [facility] Comment on above: Performed By: #### URIC, CMP #### [facility] [address] [place] [address] Dr. Marla Varner Globulin (S) [Mass/Vol] 3.9 g/dL Normal [facility] Comment on above: Performed By: #### URIC, CMP #### [facility] [address] [place] [address] Dr. Marla Varner Glucose [Mass/Vol] 253 mg/dL Critically high 74-106 [facility] Comment on above: Performed By: #### URIC, CMP #### [facility] [address] [address] [address] Marla Varner Potassium [Moles/Vol] 4.3 mmol/L Normal 3.5-5.1 [facility] Comment on above: Performed By: #### URIC, CMP #### [facility] [address] [address] [address] Marla Varner Protein [Mass/Vol] 7.2 g/dL Normal 6.4-8.2 [facility] Comment on above: Performed By: #### URIC, CMP #### [facility] [address] [address] [address] Marla Varner Sodium [Moles/Vol] 139 mmol/L Normal 136-145 [facility] Comment on above: Performed By: #### URIC, CMP #### [facility] [address] [address] [address] Marla Varner Urea nitrogen [Mass/Vol] 13.0 mg/dL Normal 7.0-18.0 [facility] Comment on above: Performed By: #### URIC, CMP #### [facility] [address] [address] [address] Marla Varner Urea nitrogen/Creatin ine [Mass ratio] 13.6 mg/mg Normal [facility] Comment on above: Performed By: #### URIC, CMP #### [facility] [address] [address] [address] Marla Varner SED RATE WESTERGRENon 2021 SED RATE 35 mm/hr Critically high <=30 [facility] Comment on above: Performed By: #### TSH #### [facility] [address] [address] [address] Marla Varner URIC ACID SERUMon 04-21-2022 Urate [Mass/Vol] 3.6 mg/dL Normal 2.6-6.0 [facility] Comment on above: Performed By: #### URIC, CMP #### [facility] [address] [address] [address] Marla Varner XR DEXA BONE DENSITYon 01-19 XR DEXA BONE DENSITY EXAMINATION: XR DEXA BONE DENSITY, 01/19/2022 10:33 AM EDT HISTORY: Osteoporosis COMPARISON: 2019 TECHNIQUE: Dual-energy X-ray absorptiometry (DEXA) bone density study performed for the axial skeleton. FINDINGS: Bone mineral density of the AP spine L1-L4 measures 0.881 g/sq cm. Young adult T score -2.5. This is a 4.1% reduction from the prior exam, physiologic. WHO classification: Osteoporosis Bone mineral density in the bilateral femoral trochanters measures 0.589 g/sq cm. This is an 11.3% reduction from the prior exam. T score -2.3. WHO classification: Osteopenia IMPRESSION: Osteoporosis, high fracture risk 11.3% reduction in bone mineral density in the femoral trochanters, this is more than expected for physiologic change Electronically authenticated by: KALEIGH SUTHERLAND Date: 2022-01-19 11:23 Normal [facility] CNOVSPon 10-21-2018 CNOVSP Visit (SP) Office (GYNOSA) -------EUNICE CASTILLO ([id number]) 1950 FDate Time Provider Department10/21/18 10:40 AM BLAINE THOMPSON During your visit today, we recorded the following information about you: Temperature Pulse Respiration Blood pressure 98 degrees 82/minute 18/minute 145/82 Weight Height 121.9 kg 1.651 Milena Thompson MD 10/23/2018 8:32 AM SignedDATE OF SERVICE: 10/21/2018PROBLEM: Eunice Castillo presents for follow up.SURGERY AND DATE: 10/29/2016Modified radical posterior vulvectomyPATHOLOGY:FINAL DIAGNOSIS1. Vulva, modified-radical posterior vulvectomy (A) - High-grade squamousintraepithelial lesion (PURA 3, classic type), see comment.- HSIL focally involves the vaginal and anal inked margins; remainingmargins are negative.2. New proximal vaginal margin, excision (B) - Benign squamous mucosa.3. New left lateral margin, excision (C) - Benign squamous mucosa.TLP/george/11/02/16 ? ?COMMENT1. Multiple additional levels were examined. Dr. Marina gN has reviewedselect slides from this case with concurrence.SUBJECTIVE/INTE RVAL HISTORY: Eunice Castillo reports that she feels well. Nofever or chills. No shortness of breath, cough, or chest pain. No incisionalredness, swelling, or drainage. Patient reports that her appetite is good. Noabdominal pain, nausea, vomiting, diarrhea, or constipation. No dysuria, grosshematuria, urinary frequency, urinary urgency, or incontinence. Her ECOGperformance status is zero (fully active, able to carry on all pre-diseaseperformance without restriction).Blaine Thompson MDOBJECTIVE:VITALS:BP 145/82 Pulse 82 Temp 36.7 ?C (98 ?F) (Oral) Resp 18 Ht165.1 cm (5' 5 ) Wt 121.9 kg (268 lb 12.8 oz) SpO2 94% BMI 44.73 kg/m?HEENT: Normocephalic, atraumatic, mucus membranes moist and no lesionsLUNGS: Clear to auscultation bilaterally.HEART: Regular rate and rhythm, no murmurs.ABDOMEN: Abdomen soft, non-tender, no hepatosplenomegaly.PELVIC: External genitalia normal. No evidence of disease, tender slightlywhite tag in the juliana-anal area.LOWER EXTREMITIES: No pitting edema, no palpable cords and no skin changes.ASSESSMENT:66 yo women with PURA-3 with focal positive anal margins (vaginal marginsnegative with additional vaginal margins taken)PLAN:Overall doing well. There is a painful tag in the juliana-anal area, she will beseeing Dr. 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] Other Visit Diagnosis:Morbid obesity (HCC) [E66.01]Prescriptions as of 10/21/2018 Sig: POTASSIUM CHLORIDE ER 10 MEQ * Take 10 mEq by mouth once oc* COLCRYS 0.6 MG TABLET Take 0.6 mg by mouth once oc* ACETAMINOPHEN 325 MG TABLET Take 2 tablets by mouth every* DOCUSATE SODIUM 100 MG CAPSULE Take 1 capsule by mouth twice* MAGNESIUM HYDROXIDE 400 MG/5 * Take 15 mL by mouth once shoshana* NICOTINE 21 MG/24 HR DAILY TR* Apply 1 Patch as directed bandar* LEVOTHYROXINE 200 MCG TABLET Take 175 mcg by mouth once da* FUROSEMIDE 40 MG TABLET Take 40 mg by mouth once shoshana* GABAPENTIN 300 MG CAPSULE Take 300 mg by mouth daily at* METHOTREXATE SODIUM 2.5 MG TA* Take 2.5 mg by mouth every Sa* ALLOPURINOL 300 MG TABLET Take 300 mg by mouth once oc* LORATADINE 10 MG TABLET Take 10 mg by mouth once shoshana* PREDNISONE 5 MG TABLET Take 5 mg by mouth once daily* FOLIC ACID 1 MG TABLET Take 1 mg by mouth once daily. ADALIMUMAB 40 MG/0.8 ML SUBCU* Inject 40 mg subcutaneously e* OMEPRAZOLE 20 MG CAPSULE,CRISTEL* Take 20 mg by mouth once shoshana* CALCIUM POLYCARBOPHIL 625 MG * Take 625 mg by mouth once oc* CYANOCOBALAMIN (VIT B-12) 1,0* Inject 1,000 mcg intramuscula* GABAPENTIN 100 MG CAPSULE Take 100 mg by mouth once oc* LISINOPRIL 10 MG TABLET Take 10 mg by mouth once shoshana* MULTIVITAMIN TABLET Take 1 tablet by mouth once d* CALTRATE 600 + D ORAL Take by mouth. 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 Vulva, modified-radical posterior vulvectomy (A) - High-grade squamousintraepithelial lesion (PURA 3, classic type), see comment.- HSIL focally involves the vaginal and anal inked margins; remainingmargins are negative.2. New proximal vaginal margin, excision (B) - Benign squamous mucosa.3. New left lateral margin, excision (C) - Benign squamous mucosa.TLP/george/11/02/16 ? ?COMMENT1. Multiple additional levels were examined. Dr. Marina Ng has reviewedselect slides from this case with concurrence.SUBJECTIVE/INTE RVAL HISTORY: Eunice Castillo reports that she feels well.No fever or chills. No shortness of breath, cough, or chest pain. Noincisional redness, swelling, or drainage. Patient reports that herappetite is good. No abdominal pain, nausea, vomiting, diarrhea, orconstipation. No dysuria, gross hematuria, urinary frequency, urinaryurgency, or incontinence. Her ECOG performance status is zero (fullyactive, able to carry on all pre-disease performance without restriction).Blaine Thompson MDOBJECTIVE:VITALS:BP 145/82 Pulse 82 Temp 36.7 ?C (98 ?F) (Oral) Resp 18 Ht 165.1 cm (5' 5 ) Wt 121.9 kg (268 lb 12.8 oz) SpO2 94% BMI44.73 kg/m?HEENT: Normocephalic, atraumatic, mucus membranes moist and no lesionsLUNGS: Clear to auscultation bilaterally.HEART: Regular rate and rhythm, no murmurs.ABDOMEN: Abdomen soft, non-tender, no hepatosplenomegaly.PELVIC: External genitalia normal. No evidence of disease, tenderslightly white tag in the juliana-anal area.LOWER EXTREMITIES: No pitting edema, no palpable cords and no skinchanges.ASSESSMENT:66 yo women with PURA-3 with focal positive anal margins (vaginal marginsnegative with additional vaginal margins taken)PLAN:Overall doing well. There is a painful tag in the juliana-anal area, she willbe seeing Dr. Kaminski to discuss resection of cauterizationRTC as neededBlaine Thompson MD, MPH25 min spent with the patient with >50% face to face counselingA letter and a copy of this office note were sent to:DINAH K[place] [address]?CC:Yimi Montemayor DO (PCP) Normal [facility] CNOVon 04-15-2018 CNOV Office Visit (GYNOSA) -------EUNICE CASTILLO ([id number]) 1950 FDate Time Provider Department04/15/18 8:00 AM BLAINE THOMPSON During your visit today, we recorded the following information about you: Temperature Pulse Respiration Blood pressure 98 degrees 78/minute 18/minute 168/73 Weight Height 121.7 kg 1.651 Milena Thompson MD 04/15/2018 8:25 AM SignedDATE OF SERVICE: April 15, 2018PROBLEM: Eunice Castillo presents for follow up.SURGERY AND DATE: 10/29/2016Modified radical posterior vulvectomyPATHOLOGY:FINAL DIAGNOSIS1. Vulva, modified-radical posterior vulvectomy (A) - High-grade squamousintraepithelial lesion (PURA 3, classic type), see comment.- HSIL focally involves the vaginal and anal inked margins; remainingmargins are negative.2. New proximal vaginal margin, excision (B) - Benign squamous mucosa.3. New left lateral margin, excision (C) - Benign squamous mucosa.TLP/george/11/02/16 ? ?COMMENT1. Multiple additional levels were examined. Dr. Marina Ng has reviewedselect slides from this case with concurrence.SUBJECTIVE/INTE RVAL HISTORY: Eunice Castillo reports that she feels well. Nofever or chills. No shortness of breath, cough, or chest pain. No incisionalredness, swelling, or drainage. Patient reports that her appetite is good. Noabdominal pain, nausea, vomiting, diarrhea, or constipation. No dysuria, grosshematuria, urinary frequency, urinary urgency, or incontinence. Her ECOGperformance status is zero (fully active, able to carry on all pre-diseaseperformance without restriction).Blaine Thompson MDOBJECTIVE:VITALS:There were no vitals taken for this visit.HEENT: Normocephalic, atraumatic, mucus membranes moist and no lesionsLUNGS: Clear to auscultation bilaterally.HEART: Regular rate and rhythm, no murmurs.ABDOMEN: Abdomen soft, non-tender, no hepatosplenomegaly.PELVIC: External genitalia normal. Surgical site healed as expected with noevidence of infectionLOWER EXTREMITIES: No pitting edema, no palpable cords and no skin changes.ASSESSMENT:66 yo women with PURA-3 with focal positive anal margins (vaginal marginsnegative with additional vaginal margins taken)PLAN:1. Overall healing very well2. No evidence of dysplasia noted on exam today3. I advised her to follow with her technical service engineer for routine health and gynmaintenance exams3. 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5 MG TA* Take 2.5 mg by mouth every Sa* ALLOPURINOL 300 MG TABLET Take 300 mg by mouth once oc* LORATADINE 10 MG TABLET Take 10 mg by mouth once shoshana* PREDNISONE 5 MG TABLET Take 5 mg by mouth once daily* FOLIC ACID 1 MG TABLET Take 1 mg by mouth once daily. ADALIMUMAB 40 MG/0.8 ML SUBCU* Inject 40 mg subcutaneously e* OMEPRAZOLE 20 MG CAPSULE,CRISTEL* Take 20 mg by mouth once shoshana* CALCIUM POLYCARBOPHIL 625 MG * Take 625 mg by mouth once oc* CYANOCOBALAMIN (VIT B-12) 1,0* Inject 1,000 mcg intramuscula* GABAPENTIN 100 MG CAPSULE Take 100 mg by mouth once oc* LISINOPRIL 10 MG TABLET Take 10 mg by mouth once shoshana* MULTIVITAMIN TABLET Take 1 tablet by mouth once d* CALTRATE 600 + D ORAL Take by mouth. 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 Status:Closed by BLAINE THOMPSON MD on 04/15/18 Normal [facility] PROGRESSon 04-15-2018 Protein mass conc HNO ID: [id number]: Blaine Maldonadoervice: (none)Author Type: PhysicianType: Progress NotesFiled: 04/15/2018 8:25 AMNote Text:DATE OF SERVICE: April 15, 2018PROBLEM: Eunice Castillo presents for follow up.SURGERY AND DATE: 10/29/2016Modified radical posterior vulvectomyPATHOLOGY:FINAL DIAGNOSIS1. Vulva, modified-radical posterior vulvectomy (A) - High-grade squamousintraepithelial lesion (PURA 3, classic type), see comment.- HSIL focally involves the vaginal and anal inked margins; remainingmargins are negative.2. New proximal vaginal margin, excision (B) - Benign squamous mucosa.3. New left lateral margin, excision (C) - Benign squamous mucosa.TLP/george/11/02/16 ? ?COMMENT1. Multiple additional levels were examined. Dr. Marina Ng has reviewedselect slides from this case with concurrence.SUBJECTIVE/INTE RVAL HISTORY: Eunice Castillo reports that she feels well.No fever or chills. No shortness of breath, cough, or chest pain. Noincisional redness, swelling, or drainage. Patient reports that herappetite is good. No abdominal pain, nausea, vomiting, diarrhea, orconstipation. No dysuria, gross hematuria, urinary frequency, urinaryurgency, or incontinence. Her ECOG performance status is zero (fullyactive, able to carry on all pre-disease performance without restriction).Blaine Thompson MDOBJECTIVE:VITALS:There were no vitals taken for this visit.HEENT: Normocephalic, atraumatic, mucus membranes moist and no lesionsLUNGS: Clear to auscultation bilaterally.HEART: Regular rate and rhythm, no murmurs.ABDOMEN: Abdomen soft, non-tender, no hepatosplenomegaly.PELVIC: External genitalia normal. Surgical site healed as expected withno evidence of infectionLOWER EXTREMITIES: No pitting edema, no palpable cords and no skinchanges.ASSESSMENT:66 yo women with PURA-3 with focal positive anal margins (vaginal marginsnegative with additional vaginal margins taken)PLAN:1. Overall healing very well2. No evidence of dysplasia noted on exam today3. I advised her to follow with her technical service engineer for routine health andgyn maintenance exams3. I will see her in 6 monthsBlaine Thompson MD, MPH25 min spent with the patient with >50% face to face counselingA letter and a copy of this office note were sent to:[place] [address]?CC:Yimi Montemayor DO (PCP) Normal [facility] Encounters Encounter Date Encounter Type Care Provider Facility Start: 10-13-2023 Telephone encounter Zohra Gregorio [facility] - Medical Oncology Start: 01-12-2023 End: 01-13-2023 ambulatory IRRIGATIONIST BRUNILDA AICHHOLZ Facility:[facility] Start: 10-13-2022 End: 10-14-2022 ambulatory IRRIGATIONIST BRUNILDA AICHHOLZ Facility:[facility] Start: 07-21-2022 End: 07-22-2022 ambulatory IRRIGATIONIST BRUNILDA AICHHOLZ Facility:[facility] Start: 04-21-2022 End: 04-22-[address] DOCTOR THORNTON Facility:[facility] Start: 01-19-2022 End: 01-20-2022 ambulatory IRRIGATIONIST BRUNILDA AICHHOLZ Facility:[facility] Start: 10-21-2018 End: 10-26-2018 Patient encounter procedure BLAINE THOMPSON [facility] Start: 04-15-2018 End: 04-15-2018 Patient encounter procedure BLAINE THOMPSON [facility] Plan of Treatment Date Care Activity Detail Author Start: 10-21-2023 Adult BMI Screening Adult BMI Screening [facility] Start: 06-18-2023 COVID-19 Vaccine ( season) COVID-19 Vaccine ( season) [facility] Start: 06-18-2023 Influenza vaccination Influenza Vaccine [facility] Start: 2015 Fall Risk Screening Fall Risk Screening [facility] Start: 2000 Administration of varicella zoster vaccine Zoster (Shingles) Vaccine (1 of 2) [facility] Start: 1969 DTaP,Tdap and Td Vaccines (1 - Tdap) DTaP,Tdap and Td Vaccines (1 - Tdap) [facility] Start: 1968 Adult BMI Follow Up Plan Adult BMI Follow Up Plan [facility] Start: 1962 Depression Screening Depression Screening [facility] Start: 1962 Tobacco Screening Tobacco Screening [facility] Start: 1950 Medicare Annual Wellness Visit Medicare Annual Wellness Visit [facility] Immunizations Immunization Date Immunization Notes Care Provider Canelo chandler 08-11-2022 influenza virus vacc ine, unspecified formulation Zohra Oates [facility] Payers Date Payer Category Payer Medicare MEDICARE MEDICAR E PART A & B [id number] 2015-Present [phone] [address] [place] [address] [id number] 2015 Unknown [employer] M [employer]ADITIONAL [id number] 2015-Present [phone] [address] [place] [address] [id number] 1959 Medicare [id number] 1959 Unknown [id number] 1950 Unknown [id number] 1950 Unknown [id number] 1950 Unknown [id number] 1950 Unknown [id number] 1950 Unknown [id number] 1950 Unknown [id number] 1950 Unknown [id number] Social History Date Type Detail Facility [facility]: [facility] History of tobacco use Cigarette Smoker P [facility] Start: 10-31-2019 End: 11-13-2020 Cigarettes smoked current (pack per day) - Reported 1 [facility] Start: 10-31-2019 Tobacco use and exposure Smoke less tobacco non-user [facility] Start: 11-13-2020 Alcohol intake Lifetime non-d rona (finding) [facility] Start: 08-16-2019 End: 11-13-2020 Alcohol Use Disorder Identification Test - Consumption [AUDIT-C] [facility] Frequency of Alcohol Consumption Never [facility] Start: 1950 Sex Assigned At Not on file P [facility] Note 10-13-2023 Telephone Encounter - Zohra Oates - 10/13/2023 2:33 PM EST Note Date & Type Note Facility 10-13-2023 Miscellaneous Notes Formattin g of this note might be different from the original. CALLED TO CANCEL FOLLOW UP WITH ANTONIETTA SHE DOES NOT WANT TO RESCHEDULE AT THIS TIME documented in this encounter [facility] Telephone encounter Note 10-13-2023 Telephone Encounter - Zohra Oates - 10/13/2023 2:33 PM EST Note Date & Type Note Facility 10-13-2023 Telephone encount er Note CALLED TO CANCEL FOLLOW UP WITH ANTONIETTA SHE DOES NOT WANT TO RESCHEDULE AT THIS TIME [facility] Instructions Note Date & Type Note Facility Instructions Not on filedocumented in this en counter [facility] Summary Purpose Family History No Family History Records FoundNo Family History Records Found Advance Directives No Advanced Directives Records FoundNo Advanced Directives Records Found Additional Source Comments INFORMATION SOURCE (unrecogn ized section and content) DATE CREATED AUTHOR 10/27/2018 [facility] DATE CREATED AUTHOR AUTHOR'S ORGANIZ ATION 01/15/2023 [facility] Care Teams (unrecognized sec tion and content) Logistician Relationship Specialty Start Date End Date Brunilda Rose, BETTING AGENCY MANAGER-IRRIGATIONIST [address] [place] [address] PCP - General Nurse Practitioner 08/16/19 FOR RECORDS PERTAINING TO PATIENTS WHO ARE OR HAVE BEEN ENROLLED IN A CHEMICAL DEPENDENCY/SUBSTANCEABUSE PROGRAM, SOME INFORMATION MAY BE OMITTED. This clinical summary was aggregated from multiple sources. Caution should be exercised in using it in the provision of clinical care. This summary normalizes information from multiple sources, and as a consequence, information in this document may materially change the coding, format and clinical context of patient data. In addition, data may be omitted in some cases. CLINICAL DECISIONS SHOULD BE BASED ON THE PRIMARY CLINICAL RECORDS. [facility] provides no warranty or guarantee of the accuracy or completeness of information in this document.
[2024-03-01 07:28] LABS: Basophils Percent Auto 0.3 % (0.2-2.0); Eosinophils Absolute Auto 0.6 10^3/uL (0.0-0.7); Eosinophils Percent Auto 7.5 % (0.9-7.0); Hematocrit 45.6 % (36.0-48.0); Hemoglobin 14.7 g/dL (12.0-16.0); Immature Granulocytes Abs Auto 0.02 10^3/uL (0.00-0.03); Immature Granulocytes Pct Auto 0.3 % (0.0-0.5); Lymphocytes Absolute Auto 1.8 10^3/uL (1.2-3.8); Lymphocytes Percent Auto 23.8 % (20.5-60.0); Mean Corpuscular HGB Conc 32.2 g/dL (29.9-35.2); Mean Corpuscular Volume 102.5 fL (81.0-99.0); Mean Platelet Volume 9.6 fL (9.5-13.5); Monocytes Absolute Auto 0.5 10^3/uL (0.3-0.8); Monocytes Percent Auto 6.7 % (1.7-12.0); Neutrophils Absolute Auto 4.7 10^3/uL (1.4-6.5); Neutrophils Percent Auto 61.4 % (43.0-75.0); Platelet Count 204 10^3/uL (150-450); Red Blood Count 4.45 10^6/uL (4.20-5.40); Red Cell Distribution Width 14.6 % (11.0-15.0); White Blood Count 7.7 10^3/uL (4.0-11.0)
[2024-03-01 08:54] LABS: Alanine Aminotransferase 18 U/L (14-59); Albumin Globulin Ratio 0.8; Albumin Level 3.2 g/dL (3.4-5.0); Alkaline Phosphatase 105 U/L (46-116); Anion Gap 12.1; Aspartate Amino Transferase 21 U/L (15-37); Bilirubin Total 0.6 mg/dL (0.2-1.0); Calcium 9.6 mg/dL (8.5-10.1); Chloride 101 mmol/L (98-107); Estimated GFR (African America >60 (>=60); Estimated GFR (Non-African Ame >60 (>=60); Globulin 4.1 g/dL; Glucose 142 mg/dL (74-106); Potassium 4.1 mmol/L (3.5-5.1); Sodium 140 mmol/L (136-145); Total Protein 7.3 g/dL (6.4-8.2); Uric Acid 3.2 mg/dL (2.6-6.0)
[2024-03-01 08:58] LABS: Erythrocyte Sedimentation Rate 65 mm/hr (<=30)
== END 2024-03-01 06:35 | disposition home or self-care (01) ==
LOC: LAB 06:36
PROVIDERS: PCP Nurse Practitioner; Visit Provider Internal Medicine Rheumatology
DX: M06.9 Rheumatoid arthritis, unspecified (principal); M19.90 Unspecified osteoarthritis, unspecified site; Z51.81 Encounter for therapeutic drug level monitoring
CPT/HCPCS: 36415; 80053; 84550; 85025; 85652

== ENCOUNTER 2024-05-05 08:47 | Outpatient (OUT) | payer MEDICARE, OTHER, SELFPAY ==
--- NOTE | 2024-05-05 08:49 | XR_ITS ---
The [address] [address] Patient Name: MERY CHAN MRN: [id number] date: 1950 Sex: F Assigned Patient Location: [facility] Current Patient Location: Accession/Order Number: [id number] Exam Date: 05/05/2024 09:00 Report Date: 05/08/2024 07:57 At the request of: ANTWON CARDENAS Procedure: XR DEXA axial skeleton EXAMINATION: XR DEXA axial skeleton, 05/05/2024 9:00 AM EDT HISTORY: Age Related Osteoporosis M81.0 COMPARISON: . TECHNIQUE: Dual-energy X-ray absorptiometry (DEXA) bone density study performed for the axial skeleton. FINDINGS: Bone mineral density AP spine L1-L4 measures 0.933 g/sq cm. T score -2.1. Osteopenia. Lowest bone mineral density right femoral neck measures 0.620 g/sq cm. T score -3.0. Osteoporosis XR/XR DEXA axial skeleton IMPRESSION: Osteoporosis. High fracture risk Pharmacologic treatment recommendations * No uniform recommendation applies to all patients. Management plans must be individualized. * Consider initiating pharmacologic treatment in postmenopausal women and men >= 50 years of age who have the following: Primary fracture prevention: * T-score <= - 2.5 at the femoral neck, total hip, lumbar spine, 33% radius (some uncertainty with existing data) by DXA. * Low bone mass (osteopenia: T-score between - 1.0 and - 2.5) at the femoral neck or total hip by DXA with a 10-year hip fracture risk >= 3% or a 10-year major osteoporosis-related fracture risk >= 20% (i.e., clinical vertebral, hip, forearm, or proximal humerus) based on the [place]-adapted FRAXregistered model. Secondary fracture prevention: * Fracture of the hip or vertebra regardless of BMD [4, 5]. * Fracture of proximal humerus, pelvis, or distal forearm in persons with low bone mass (osteopenia: T-score between - 1.0 and - 2.5). The decision to treat should be individualized in persons with a fracture of the proximal humerus, pelvis, or distal forearm who do not have osteopenia or low BMD [12, 13]. Cachorro Oliva MSan SL, Sher KL, Carlos EM, Vivian KG, Dominguez AJ, Neto ES. The clinician's guide to prevention and treatment of osteoporosis. Osteoporos Int. 2021;33(10):5595-3940. doi: 10.1007/b11535-646-93045-j. Epub 2021Feb 12. Erratum in: Osteoporos Int. 2021May 14;: PMID: [id number]; PMCID: [id number]. Electronically authenticated by: KALEIGH SUTHERLAND Date: 05/08/2024 07:57
--- OUTSIDE RECORDS SUMMARY | 2024-05-05 09:07 | XMS_ITS | CCD ---
Author Organization [facility] Care Team Providers Care Heel Sprayer First Name Role Phone MAHDI, BLAINE Unavailable Unavailable MAHDI, BLAINE Unavailable Unavailable MAHDI, BLAINE Unavailable Unavailable MAHDI, BLAINE Unavailable Unavailable AICHHOLZ, COMMERCIAL FISHING VESSEL OPERATOR BRUNILDA Primary Care Unavailable MISC, DOCTOR Attending Unavailable MISC, DR SMITH Consulting Unavailable MISC, DOCTOR Admitting Unavailable AICHHOLZ, COMMERCIAL FISHING VESSEL OPERATOR BRUNILDA Consulting Unavailable AICHHOLZ, COMMERCIAL FISHING VESSEL OPERATOR BRUNILDA Admitting Unavailable AICHHOLZ, COMMERCIAL FISHING VESSEL OPERATOR BRUNILDA Primary Care Unavailable AICHHOLZ, COMMERCIAL FISHING VESSEL OPERATOR BRUNILDA Attending Unavailable MISC, DR SMITH Admitting Unavailable AICHHOLZ, COMMERCIAL FISHING VESSEL OPERATOR BRUNILDA Primary Care Unavailable MISC, DR SMITH Attending Unavailable MISC, DR SMITH Consulting Unavailable AICHHOLZ, COMMERCIAL FISHING VESSEL OPERATOR BRUNILDA Attending Unavailable AICHHOLZ, COMMERCIAL FISHING VESSEL OPERATOR BRUNILDA Consulting Unavailable AICHHOLZ, COMMERCIAL FISHING VESSEL OPERATOR BRUNILDA Primary Care Unavailable AICHHOLZ, COMMERCIAL FISHING VESSEL OPERATOR BRUNILDA Admitting Unavailable AICHHOLZ, COMMERCIAL FISHING VESSEL OPERATOR BRUNILDA Primary Care Unavailable MISC, DR SMITH Attending Unavailable MISC, DR SMITH Consulting Unavailable AICHHOLZ, COMMERCIAL FISHING VESSEL OPERATOR BRUNILDA Admitting Unavailable AICHHOLZ, COMMERCIAL FISHING VESSEL OPERATOR BRUNILDA Primary Care Unavailable THERESA, DR KAPOOR Admitting Unavailable WEST, DR KALEIGH Jameson Consulting Unavailable CARDENAS, DR KAPOOR Attending Unavailable CARDENAS, DR KAPOOR Consulting Unavailable MISC, DR SMITH Attending Unavailable AICHHOLZ, COMMERCIAL FISHING VESSEL OPERATOR BRUNILDA Primary Care Unavailable MISC, DR SMITH Consulting Unavailable MISC, DR SMITH Admitting Unavailable Aichholz PROPULSION GENERATOR REPAIRER-COMMERCIAL FISHING VESSEL OPERATOR, Brunilda J Primary Care Provider Allergies Allergy Classification Reported Allergen(s) Allergy Type Date of Onset Reaction(s) Facility (2 sources) Penicillins; Translations: [PENICILLINS] Propensity to adverse reactions to drug (disorder) 6 Rash [facility] Repository (1 source) Piroxicam Drug Allergy 9 Swelling [facility] Medications Current Medications Medication Drug Class(es) [...] 01-19-2022 Chronic Other aftercare (1 source) Other chcf (current) drug therapy; Translations: [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 Marla Varner Basophils/100 WBC (Bld) 0.1 % Critically low 0.2-2.0 [facility] Comment on above: Performed By: #### TSH #### [facility] [address] [address] [address] Marla Varner EO # 0.3 103/ul Normal 0.0-0.7 [facility] Comment on above: Performed By: #### TSH #### [facility] [address] [place] [address] Dr. Marla Varner Eosinophils/100 WBC (Bld) 4.6 % Normal 0.9-7.0 [facility] Comment on above: Performed By: #### TSH #### [facility] [address] [place] [address] Dr. Marla Varner Erythrocyte distribution width (RBC) [Ratio] 14.6 % Normal 11.0-15.0 [facility] Comment on above: Performed By: #### TSH #### [facility] [address] [place] [address] Dr. Marla Varner Hematocrit (Bld) [Volume fraction] 46.0 % Normal 36.0-48.0 [facility] Comment on above: Performed By: #### TSH #### [facility] [address] [place] [address] Dr. Marla Varner Hemoglobin (Bld) [Mass/Vol] 15.1 g/dL Normal 12.0-16.0 [facility] Comment on above: Performed By: #### TSH #### [facility] [address] [place] [address] Dr. Marla Varner IG # 0.01 10e3/ul Normal 0.00-0.03 [facility] Comment on above: Performed By: #### TSH #### [facility] [address] [place] [address] Dr. Marla Varner IG % 0.1 % Normal 0.0-0.5 [facility] Comment on above: Performed By: #### TSH #### [facility] [address] [place] [address] Dr. Marla Varner LYMPH # 1.3 103/ul Normal 1.2-3.8 [facility] Comment on above: Performed By: #### TSH #### [facility] [address] [place] [address] Dr. Marla Varner Lymphocytes/100 WBC (Bld) 19.7 % Critically low 20.5-60.0 [facility] Comment on above: Performed By: #### TSH #### [facility] [address] [address] [address] Marla Varner MANUAL DIFF REQ NO Normal [facility] Comment on above: Performed By: #### TSH #### [facility] [address] [address] [address] Marla Varner MCH (RBC) [Entitic mass] 33.6 pg Normal 26.7-34.0 [facility] Comment on above: Performed By: #### TSH #### [facility] [address] [place] [address] Dr. Marla Varner MCHC (RBC) [Mass/Vol] 32.8 g/dL Normal 29.9-35.2 [facility] Comment on above: Performed By: #### TSH #### [facility] [address] [place] [address] Dr. Marla Vanrer MCV (RBC) [Entitic vol] 102.4 fL Critically high 81.0-99.0 [facility] Comment on above: Performed By: #### TSH #### [facility] [address] [place] [address] Dr. Marla Varner MONO # 0.5 103/ul Normal 0.3-0.8 [facility] Comment on above: Performed By: #### TSH #### [facility] [address] [place] [address] Dr. Marla Varner Monocytes/100 WBC (Bld) 7.3 % Normal 1.7-12.0 [facility] Comment on above: Performed By: #### TSH #### [facility] [address] [place] [address] Dr. Marla Varner NEUT # 4.6 103/ul Normal 1.4-6.5 [facility] Comment on above: Performed By: #### TSH #### [facility] [address] [place] [address] Dr. Marla Varner Neutrophils/100 WBC (Bld) 68.2 % Normal 43.0-75.0 [facility] Comment on above: Performed By: #### TSH #### [facility] [address] [place] [address] Dr. Marla Varner Platelet mean volume (Bld) [Entitic vol] 9.1 fL Critically low 9.5-13.5 [facility] Comment on above: Performed By: #### TSH #### [facility] [address] [place] [address] Dr. Marla Varner PLT 194 103/ul Normal 150-450 [facility] Comment on above: Performed By: #### TSH #### [facility] [address] [place] [address] Dr. Marla Varner RBC 4.49 106/ul Normal 4.20-5.40 [facility] Comment on above: Performed By: #### TSH #### [facility] [address] [place] [address] Dr. Marla Varner WBC 6.7 103/ul Normal 4.0-11.0 [facility] Comment on above: Performed By: #### TSH #### [facility] [address] [place] [address] Dr. Marla Varner PROF 14(COMP METB)on 023 Albumin [Mass/Vol] 3.6 g/dL Normal 3.4-5.0 [facility] Comment on above: Performed By: #### URIC, CMP #### [facility] [address] [place] [address] Dr. Marla Varner Albumin/Globulin [Mass ratio] 1.0 {ratio} Normal [facility] Comment on above: Performed By: #### URIC, CMP #### [facility] [address] [place] [address] Dr. Marla Varner ALP [Catalytic activity/Vol] 93 U/L Normal 46-116 [facility] Comment on above: Performed By: #### URIC, CMP #### [facility] [address] [place] [address] Dr. Marla Varner ALT [Catalytic activity/Vol] 26 U/L Normal 14-59 [facility] Comment on above: Performed By: #### URIC, CMP #### [facility] [address] [place] [address] Dr. Marla Varner Anion gap [Moles/Vol] 12.3 mmol/L Normal [facility] Comment on above: Performed By: #### URIC, CMP #### [facility] [address] [address] [address] Marla Varner AST [Catalytic activity/Vol] 20 U/L Normal 15-37 [facility] Comment on above: Performed By: #### URIC, CMP #### [facility] [address] [address] [address] Marla Varner Bilirubin [Mass/Vol] 0.4 mg/dL Normal 0.2-1.0 [facility] Comment on above: Performed By: #### URIC, CMP #### [facility] [address] [address] [address] Marla Varner Calcium [Mass/Vol] 9.2 mg/dL Normal 8.5-10.1 [facility] Comment on above: Performed By: #### URIC, CMP #### [facility] [address] [address] [address] Marla Varner Chloride [Moles/Vol] 102 mmol/L Normal 98-107 [facility] Comment on above: Performed By: #### URIC, CMP #### [facility] [address] [address] [address] Marla Varner CO2 [Moles/Vol] 32.3 mmol/L Critically high 21.0-32.0 [facility] Comment on above: Performed By: #### URIC, CMP #### [facility] [address] [place] [address] Dr. Marla Varner Creatinine [Mass/Vol] 0.84 mg/dL Normal 0.55-1.02 [facility] Comment on above: Performed By: #### URIC, CMP #### [facility] [address] [place] [address] Dr. Marla Varner EGFR-AF GEORGIAN >60 Normal >=60 [facility] Comment on above: Performed By: #### URIC, CMP #### [facility] [address] [place] [address] Dr. Marla Varner EGFR-NON AF GEORGIAN >60 Normal >=60 [facility] Comment on above: Performed By: #### URIC, CMP #### [facility] [address] [address] [address] Marla Varner Globulin (S) [Mass/Vol] 3.7 g/dL Normal [facility] Comment on above: Performed By: #### URIC, CMP #### [facility] [address] [address] [address] Marla Varner Glucose [Mass/Vol] 114 mg/dL Critically high 74-106 [facility] Comment on above: Performed By: #### URIC, CMP #### [facility] [address] [address] [address] Marla Varner Potassium [Moles/Vol] 4.6 mmol/L Normal 3.5-5.1 [facility] Comment on above: Performed By: #### URIC, CMP #### [facility] [address] [place] [address] Dr. Marla Varner Protein [Mass/Vol] 7.3 g/dL Normal 6.4-8.2 [facility] Comment on above: Performed By: #### URIC, CMP #### [facility] [address] [place] [address] Dr. Marla Varner Sodium [Moles/Vol] 142 mmol/L Normal 136-145 [facility] Comment on above: Performed By: #### URIC, CMP #### [facility] [address] [address] [address] Marla Varner Urea nitrogen [Mass/Vol] 15.0 mg/dL Normal 7.0-18.0 [facility] Comment on above: Performed By: #### URIC, CMP #### [facility] [address] [address] [address] Marla Varner Urea nitrogen/Creatin ine [Mass ratio] 17.9 mg/mg Normal [facility] Comment on above: Performed By: #### URIC, CMP #### [facility] [address] [place] [address] Dr. Marla Varner SED RATE [facility] 2022 SED RATE 47 mm/hr Critically high <=30 [facility] Comment on above: Performed By: #### SEDR #### [facility] [address] [place] [address] Dr. Marla Varner URIC ACID SERUMon 01-12-2023 Urate [Mass/Vol] 3.3 mg/dL Normal 2.6-6.0 [facility] Comment on above: Performed By: #### URIC, CMP #### [facility] [address] [place] [address] Dr. Marla Varner CBC AUTO DIFFon 10-13-2022 BASO # 0.0 103/ul Normal 0.0-0.1 [facility] Comment on above: Performed By: #### INSULT #### [facility] [address] [place] [address] Dr. Marla Varner Basophils/100 WBC (Bld) 0.3 % Normal 0.2-2.0 [facility] Comment on above: Performed By: #### INSULT #### [facility] [address] [place] [address] Dr. Marla Varner EO # 0.4 103/ul Normal 0.0-0.7 [facility] Comment on above: Performed By: #### INSULT #### [facility] [address] [place] [address] Dr. Marla Varner Eosinophils/100 WBC (Bld) 5.8 % Normal 0.9-7.0 [facility] Comment on above: Performed By: #### INSULT #### [facility] [address] [place] [address] Dr. Marla Varner Erythrocyte distribution width (RBC) [Ratio] 14.8 % Normal 11.0-15.0 [facility] Comment on above: Performed By: #### INSULT #### [facility] [address] [place] [address] Dr. Marla Varner Hematocrit (Bld) [Volume fraction] 44.4 % Normal 36.0-48.0 [facility] Comment on above: Performed By: #### INSULT #### [facility] [address] [place] [address] Dr. Marla Varner Hemoglobin (Bld) [Mass/Vol] 14.6 g/dL Normal 12.0-16.0 [facility] Comment on above: Performed By: #### INSULT #### [facility] [address] [place] [address] Dr. Marla Varner IG # 0.02 10e3/ul Normal 0.00-0.03 [facility] Comment on above: Performed By: #### INSULT #### [facility] [address] [place] [address] Dr. Marla Varner IG % 0.3 % Normal 0.0-0.5 [facility] Comment on above: Performed By: #### INSULT #### [facility] [address] [place] [address] Dr. Marla Varner LYMPH # 1.6 103/ul Normal 1.2-3.8 [facility] Comment on above: Performed By: #### INSULT #### [facility] [address] [place] [address] Dr. Marla Varner Lymphocytes/100 WBC (Bld) 21.6 % Normal 20.5-60.0 [facility] Comment on above: Performed By: #### INSULT #### [facility] [address] [place] [address] Dr. Marla Varner MANUAL DIFF REQ NO Normal [facility] Comment on above: Performed By: #### INSULT #### [facility] [address] [place] [address] Dr. Marla Varner MCH (RBC) [Entitic mass] 33.8 pg Normal 26.7-34.0 [facility] Comment on above: Performed By: #### INSULT #### [facility] [address] [place] [address] Dr. Marla Varner MCHC (RBC) [Mass/Vol] 32.9 g/dL Normal 29.9-35.2 [facility] Comment on above: Performed By: #### INSULT #### [facility] [address] [place] [address] Dr. Marla Varner MCV (RBC) [Entitic vol] 102.8 fL Critically high 81.0-99.0 [facility] Comment on above: Performed By: #### INSULT #### [facility] [address] [address] [address] Marla Varner MONO # 0.5 103/ul Normal 0.3-0.8 [facility] Comment on above: Performed By: #### INSULT #### [facility] [address] [address] [address] Marla Varner Monocytes/100 WBC (Bld) 6.9 % Normal 1.7-12.0 [facility] Comment on above: Performed By: #### INSULT #### [facility] [address] [address] [address] Marla Varner NEUT # 4.7 103/ul Normal 1.4-6.5 [facility] Comment on above: Performed By: #### INSULT #### [facility] [address] [place] [address] Dr. Marla Varner Neutrophils/100 WBC (Bld) 65.1 % Normal 43.0-75.0 [facility] Comment on above: Performed By: #### INSULT #### [facility] [address] [place] [address] Dr. Marla Varner Platelet mean volume (Bld) [Entitic vol] 9.3 fL Critically low 9.5-13.5 [facility] Comment on above: Performed By: #### INSULT #### [facility] [address] [place] [address] Dr. Marla Varner PLT 200 103/ul Normal 150-450 [facility] Comment on above: Performed By: #### INSULT #### [facility] [address] [address] [address] Marla Varner RBC 4.32 106/ul Normal 4.20-5.40 [facility] Comment on above: Performed By: #### INSULT #### [facility] [address] [place] [address] Dr. Marla Varner WBC 7.2 103/ul Normal 4.0-11.0 [facility] Comment on above: Performed By: #### INSULT #### [facility] [address] [place] [address] Dr. Marla Varner FREE T3on 10-13-2022 FREE T3 2.20 pg/mlL Normal 2.18-3.98 [facility] Comment on above: Performed By: #### TSH #### [facility] [address] [place] [address] Dr. Marla Varner FREE T4on 10-13-2022 Free T4 [Mass/Vol] 1.30 ng/dL Normal 0.76-1.46 [facility] Comment on above: Performed By: #### TSH #### [facility] [address] [place] [address] Dr. Marla Varner PROF 14(COMP METB)on 022 Albumin [Mass/Vol] 3.4 g/dL Normal 3.4-5.0 [facility] Comment on above: Performed By: #### CMP, URIC #### [facility] [address] [place] [address] Dr. Marla Varner Albumin/Globulin [Mass ratio] 0.9 {ratio} Normal [facility] Comment on above: Performed By: #### CMP, URIC #### [facility] [address] [place] [address] Dr. Marla Varner ALP [Catalytic activity/Vol] 92 U/L Normal 46-116 [facility] Comment on above: Performed By: #### CMP, URIC #### [facility] [address] [place] [address] Dr. Marla Varner ALT [Catalytic activity/Vol] 17 U/L Normal 14-59 [facility] Comment on above: Performed By: #### CMP, URIC #### [facility] [address] [place] [address] Dr. Marla Varner Anion gap [Moles/Vol] 10.7 mmol/L Normal [facility] Comment on above: Performed By: #### CMP, URIC #### [facility] [address] [place] [address] Dr. Marla Varner AST [Catalytic activity/Vol] 17 U/L Normal 15-37 [facility] Comment on above: Performed By: #### CMP, URIC #### [facility] [address] [address] [address] Marla Varner Bilirubin [Mass/Vol] 0.4 mg/dL Normal 0.2-1.0 [facility] Comment on above: Performed By: #### CMP, URIC #### [facility] [address] [address] [address] Marla Varner Calcium [Mass/Vol] 8.8 mg/dL Normal 8.5-10.1 [facility] Comment on above: Performed By: #### CMP, URIC #### [facility] [address] [address] [address] Marla Varner Chloride [Moles/Vol] 101 mmol/L Normal 98-107 [facility] Comment on above: Performed By: #### CMP, URIC #### [facility] [address] [place] [address] Dr. Marla Varnre CO2 [Moles/Vol] 32.5 mmol/L Critically high 21.0-32.0 [facility] Comment on above: Performed By: #### CMP, URIC #### [facility] [address] [place] [address] Dr. Marla Varner Creatinine [Mass/Vol] 0.72 mg/dL Normal 0.55-1.02 [facility] Comment on above: Performed By: #### CMP, URIC #### [facility] [address] [place] [address] Dr. Marla Varner EGFR-AF GEORGIAN >60 Normal >=60 [facility] Comment on above: Performed By: #### CMP, URIC #### [facility] [address] [place] [address] Dr. Marla Varner EGFR-NON AF GEORGIAN >60 Normal >=60 [facility] Comment on above: Performed By: #### CMP, URIC #### [facility] [address] [place] [address] Dr. Marla Varner Globulin (S) [Mass/Vol] 3.8 g/dL Normal [facility] Comment on above: Performed By: #### CMP, URIC #### [facility] [address] [address] [address] Marla Varner Glucose [Mass/Vol] 101 mg/dL Normal 74-106 [facility] Comment on above: Performed By: #### CMP, URIC #### [facility] [address] [address] [address] Marla Varner Potassium [Moles/Vol] 4.2 mmol/L Normal 3.5-5.1 [facility] Comment on above: Performed By: #### CMP, URIC #### [facility] [address] [address] [address] Marla Varner Protein [Mass/Vol] 7.2 g/dL Normal 6.4-8.2 [facility] Comment on above: Performed By: #### CMP, URIC #### [facility] [address] [address] [address] Marla Varner Sodium [Moles/Vol] 140 mmol/L Normal 136-145 [facility] Comment on above: Performed By: #### CMP, URIC #### [facility] [address] [place] [address] Dr. Marla Varner Urea nitrogen [Mass/Vol] 11.0 mg/dL Normal 7.0-18.0 [facility] Comment on above: Performed By: #### CMP, URIC #### [facility] [address] [address] [address] Malra Varner Urea nitrogen/Creatin ine [Mass ratio] 15.3 mg/mg Normal [facility] Comment on above: Performed By: #### CMP, URIC #### [facility] [address] [address] [address] Marla Varner SED RATE [facility] 2021 SED RATE 51 mm/hr Critically high <=30 [facility] Comment on above: Performed By: #### SEDR #### [facility] [address] [address] [address] Marla Varner TSHon 10-13-2022 TSH 1.307 uIU/mL Normal 0.358-3.740 [facility] Comment on above: Performed By: #### TSH #### [facility] [address] [place] [address] Dr. Marla Varner URIC ACID SERUMon 10-13-2022 Urate [Mass/Vol] 3.2 mg/dL Normal 2.6-6.0 [facility] Comment on above: Performed By: #### CMP, URIC #### [facility] [address] [place] [address] Dr. Marla Varner INSULIN FREE AND TOTALon Free Insulin 17 uU/mL Normal [facility] Comment on above: Result Comment: Reference Range: Pubertal Children and Adults (fasting): 0 - 17 Performed By: #### I NSULT #### [facility] [address] [place] [address] Dr. Marla Varner Total Insulin 17 uU/mL Normal [facility] Comment on above: Result Comment: Non-Diabetic: In [...] developed and its performance characteristics determined by [employer]. It has not been cleared or approved by the Food and Drug Administration. Performed By: #### I NSULT #### [facility] [address] [place] [address] Dr. Marla Varner CBC AUTO DIFFon 07-21-2022 BASO # 0.0 103/ul Normal 0.0-0.1 [facility] Comment on above: Performed By: #### TSH #### [facility] [address] [place] [address] Dr. Marla Varner Basophils/100 WBC (Bld) 0.3 % Normal 0.2-2.0 [facility] Comment on above: Performed By: #### TSH #### [facility] [address] [place] [address] Dr. Marla Varner EO # 0.2 103/ul Normal 0.0-0.7 [facility] Comment on above: Performed By: #### TSH #### [facility] [address] [place] [address] Dr. Marla Varner Eosinophils/100 WBC (Bld) 2.7 % Normal 0.9-7.0 [facility] Comment on above: Performed By: #### TSH #### [facility] [address] [place] [address] Dr. Marla Varner Erythrocyte distribution width (RBC) [Ratio] 14.8 % Normal 11.0-15.0 [facility] Comment on above: Performed By: #### TSH #### [facility] [address] [place] [address] Dr. Marla Varner Hematocrit (Bld) [Volume fraction] 47.6 % Normal 36.0-48.0 [facility] Comment on above: Performed By: #### TSH #### [facility] [address] [place] [address] Dr. Marla Varner Hemoglobin (Bld) [Mass/Vol] 15.4 g/dL Normal 12.0-16.0 [facility] Comment on above: Performed By: #### TSH #### [facility] [address] [place] [address] Dr. Marla Varner IG # 0.03 10e3/ul Normal 0.00-0.03 [facility] Comment on above: Performed By: #### TSH #### [facility] [address] [place] [address] Dr. Marla Varner IG % 0.4 % Normal 0.0-0.5 [facility] Comment on above: Performed By: #### TSH #### [facility] [address] [place] [address] Dr. Marla Varner LYMPH # 1.6 103/ul Normal 1.2-3.8 [facility] Comment on above: Performed By: #### TSH #### [facility] [address] [place] [address] Dr. Marla Varner Lymphocytes/100 WBC (Bld) 21.1 % Normal 20.5-60.0 [facility] Comment on above: Performed By: #### TSH #### [facility] [address] [place] [address] Dr. Marla Varner MANUAL DIFF REQ NO Normal [facility] Comment on above: Performed By: #### TSH #### [facility] [address] [place] [address] Dr. Marla Varner MCH (RBC) [Entitic mass] 34.2 pg Critically high 26.7-34.0 [facility] Comment on above: Performed By: #### TSH #### [facility] [address] [place] [address] Dr. Marla Varner MCHC (RBC) [Mass/Vol] 32.4 g/dL Normal 29.9-35.2 [facility] Comment on above: Performed By: #### TSH #### [facility] [address] [place] [address] Dr. Marla Varenr MCV (RBC) [Entitic vol] 105.8 fL Critically high 81.0-99.0 [facility] Comment on above: Performed By: #### TSH #### [facility] [address] [place] [address] Dr. Marla Varner MONO # 0.5 103/ul Normal 0.3-0.8 [facility] Comment on above: Performed By: #### TSH #### [facility] [address] [place] [address] Dr. Marla Varner Monocytes/100 WBC (Bld) 7.4 % Normal 1.7-12.0 [facility] Comment on above: Performed By: #### TSH #### [facility] [address] [place] [address] Dr. Marla Varner NEUT # 5.0 103/ul Normal 1.4-6.5 [facility] Comment on above: Performed By: #### TSH #### [facility] [address] [place] [address] Dr. Marla Varner Neutrophils/100 WBC (Bld) 68.1 % Normal 43.0-75.0 [facility] Comment on above: Performed By: #### TSH #### [facility] [address] [place] [address] Dr. Marla Varner Platelet mean volume (Bld) [Entitic vol] 10.5 fL Normal 9.5-13.5 [facility] Comment on above: Performed By: #### TSH #### [facility] [address] [place] [address] Dr. Marla Varner PLT 207 103/ul Normal 150-450 [facility] Comment on above: Performed By: #### TSH #### [facility] [address] [place] [address] Dr. Marla Varner RBC 4.50 106/ul Normal 4.20-5.40 [facility] Comment on above: Performed By: #### TSH #### [facility] [address] [place] [address] Dr. Marla Varner WBC 7.3 103/ul Normal 4.0-11.0 [facility] Comment on above: Performed By: #### TSH #### [facility] [address] [place] [address] Dr. Marla Varner FREE T4on 07-21-2022 Free T4 [Mass/Vol] 1.75 ng/dL Critically high 0.76-1.46 [facility] Comment on above: Performed By: #### TSH #### [facility] [address] [place] [address] Dr. Marla Varner PROF 14(COMP METB)on 022 Albumin [Mass/Vol] 3.7 g/dL Normal 3.4-5.0 [facility] Comment on above: Performed By: #### INSULT #### [facility] [address] [place] [address] Dr. Marla Varner Albumin/Globulin [Mass ratio] 1.0 {ratio} Normal [facility] Comment on above: Performed By: #### INSULT #### [facility] [address] [place] [address] Dr. Marla Varner ALP [Catalytic activity/Vol] 99 U/L Normal 46-116 [facility] Comment on above: Performed By: #### INSULT #### [facility] [address] [place] [address] Dr. Marla Varner ALT [Catalytic activity/Vol] 25 U/L Normal 14-59 [facility] Comment on above: Performed By: #### INSULT #### [facility] [address] [place] [address] Dr. Marla Varner Anion gap [Moles/Vol] 15.7 mmol/L Normal [facility] Comment on above: Performed By: #### INSULT #### [facility] [address] [place] [address] Dr. Marla Varner AST [Catalytic activity/Vol] 20 U/L Normal 15-37 [facility] Comment on above: Performed By: #### INSULT #### [facility] [address] [place] [address] Dr. Marla Varner Bilirubin [Mass/Vol] 0.4 mg/dL Normal 0.2-1.0 [facility] Comment on above: Performed By: #### INSULT #### [facility] [address] [place] [address] Dr. Marla Varner Calcium [Mass/Vol] 8.9 mg/dL Normal 8.5-10.1 [facility] Comment on above: Performed By: #### INSULT #### [facility] [address] [place] [address] Dr. Marla Varner Chloride [Moles/Vol] 99 mmol/L Normal 98-107 [facility] Comment on above: Performed By: #### INSULT #### [facility] [address] [place] [address] Dr. Marla Varner CO2 [Moles/Vol] 25.3 mmol/L Normal 21.0-32.0 [facility] Comment on above: Performed By: #### INSULT #### [facility] [address] [place] [address] Dr. Marla Varner Creatinine [Mass/Vol] 0.80 mg/dL Normal 0.55-1.02 [facility] Comment on above: Performed By: #### INSULT #### [facility] [address] [place] [address] Dr. Marla Varner EGFR-AF GEORGIAN >60 Normal >=60 [facility] Comment on above: Performed By: #### INSULT #### [facility] [address] [place] [address] Dr. Marla Varner EGFR-NON AF GEORGIAN >60 Normal >=60 [facility] Comment on above: Performed By: #### INSULT #### [facility] [address] [address] [address] Marla Varner Globulin (S) [Mass/Vol] 3.6 g/dL Normal [facility] Comment on above: Performed By: #### INSULT #### [facility] [address] [address] [address] Marla Varner Glucose [Mass/Vol] 113 mg/dL Critically high 74-106 [facility] Comment on above: Performed By: #### INSULT #### [facility] [address] [place] [address] Dr. Marla Varner Potassium [Moles/Vol] 4.0 mmol/L Normal 3.5-5.1 [facility] Comment on above: Performed By: #### INSULT #### [facility] [address] [place] [address] Dr. Marla Varner Protein [Mass/Vol] 7.3 g/dL Normal 6.4-8.2 [facility] Comment on above: Performed By: #### INSULT #### [facility] [address] [place] [address] Dr. Marla Varner Sodium [Moles/Vol] 136 mmol/L Normal 136-145 [facility] Comment on above: Performed By: #### INSULT #### [facility] [address] [address] [address] Marla Varner Urea nitrogen [Mass/Vol] 10.0 mg/dL Normal 7.0-18.0 [facility] Comment on above: Performed By: #### INSULT #### [facility] [address] [address] [address] Marla Varner Urea nitrogen/Creatin ine [Mass ratio] 12.5 mg/mg Normal [facility] Comment on above: Performed By: #### INSULT #### [facility] [address] [place] [address] Dr. Marla Varner SED RATE WESTERGRENon 2021 SED RATE 34 mm/hr Critically high <=30 [facility] Comment on above: Performed By: #### TSH #### [facility] [address] [place] [address] Dr. Marla Varner TSHon 07-21-2022 TSH 0.152 uIU/mL Critically low 0.358-3.740 [facility] Comment on above: Performed By: #### TSH #### [facility] [address] [place] [address] Dr. Marla Varner URIC ACID SERUMon 07-21-2022 Urate [Mass/Vol] 3.3 mg/dL Normal 2.6-6.0 [facility] Comment on above: Performed By: #### INSULT #### [facility] [address] [place] [address] Dr. Marla Varner CBC AUTO DIFFon 04-21-2022 BASO # 0.0 103/ul Normal 0.0-0.1 [facility] Comment on above: Performed By: #### TSH #### [facility] [address] [place] [address] Dr. Marla Varner Basophils/100 WBC (Bld) 0.1 % Critically low 0.2-2.0 [facility] Comment on above: Performed By: #### TSH #### [facility] [address] [place] [address] Dr. Marla Varner EO # 0.4 103/ul Normal 0.0-0.7 [facility] Comment on above: Performed By: #### TSH #### [facility] [address] [place] [address] Dr. Marla Varner Eosinophils/100 WBC (Bld) 5.1 % Normal 0.9-7.0 [facility] Comment on above: Performed By: #### TSH #### [facility] [address] [place] [address] Dr. Marla Varner Erythrocyte distribution width (RBC) [Ratio] 14.5 % Normal 11.0-15.0 [facility] Comment on above: Performed By: #### TSH #### [facility] [address] [address] [address] Marla Varner Hematocrit (Bld) [Volume fraction] 45.7 % Normal 36.0-48.0 [facility] Comment on above: Performed By: #### TSH #### [facility] [address] [address] [address] Marla Varner Hemoglobin (Bld) [Mass/Vol] 14.6 g/dL Normal 12.0-16.0 [facility] Comment on above: Performed By: #### TSH #### [facility] [address] [place] [address] Dr. Marla Varner IG # 0.03 10e3/ul Normal 0.00-0.03 [facility] Comment on above: Performed By: #### TSH #### [facility] [address] [place] [address] Dr. Marla Varner IG % 0.4 % Normal 0.0-0.5 [facility] Comment on above: Performed By: #### TSH #### [facility] [address] [place] [address] Dr. Marla Varner LYMPH # 0.9 103/ul Critically low 1.2-3.8 [facility] Comment on above: Performed By: #### TSH #### [facility] [address] [place] [address] Dr. Marla Varner Lymphocytes/100 WBC (Bld) 11.3 % Critically low 20.5-60.0 [facility] Comment on above: Performed By: #### TSH #### [facility] [address] [place] [address] Dr. Marla Varner MANUAL DIFF REQ NO Normal [facility] Comment on above: Performed By: #### TSH #### [facility] [address] [place] [address] Dr. Marla Varner MCH (RBC) [Entitic mass] 33.4 pg Normal 26.7-34.0 [facility] Comment on above: Performed By: #### TSH #### [facility] [address] [address] [address] Marla Varner MCHC (RBC) [Mass/Vol] 31.9 g/dL Normal 29.9-35.2 [facility] Comment on above: Performed By: #### TSH #### [facility] [address] [address] [address] Marla Varner MCV (RBC) [Entitic vol] 104.6 fL Critically high 81.0-99.0 [facility] Comment on above: Performed By: #### TSH #### [facility] [address] [address] [address] Marla Varner MONO # 0.3 103/ul Normal 0.3-0.8 [facility] Comment on above: Performed By: #### TSH #### [facility] [address] [place] [address] Dr. Marla Varner Monocytes/100 WBC (Bld) 3.9 % Normal 1.7-12.0 [facility] Comment on above: Performed By: #### TSH #### [facility] [address] [address] [address] Marla Varner NEUT # 6.1 103/ul Normal 1.4-6.5 [facility] Comment on above: Performed By: #### TSH #### [facility] [address] [place] [address] Dr. Marla Varner Neutrophils/100 WBC (Bld) 79.2 % Critically high 43.0-75.0 [facility] Comment on above: Performed By: #### TSH #### [facility] [address] [address] [address] Marla Varner Platelet mean volume (Bld) [Entitic vol] 10.4 fL Normal 9.5-13.5 [facility] Comment on above: Performed By: #### TSH #### [facility] [address] [address] [address] Marla Varner PLT 195 103/ul Normal 150-450 [facility] Comment on above: Performed By: #### TSH #### [facility] [address] [place] [address] Dr. Marla Varner RBC 4.37 106/ul Normal 4.20-5.40 [facility] Comment on above: Performed By: #### TSH #### [facility] [address] [place] [address] Dr. Marla Varner WBC 7.7 103/ul Normal 4.0-11.0 [facility] Comment on above: Performed By: #### TSH #### [facility] [address] [place] [address] Dr. Marla Varner PROF 14(COMP METB)on 022 Albumin [Mass/Vol] 3.3 g/dL Critically low 3.4-5.0 [facility] Comment on above: Performed By: #### URIC, CMP #### [facility] [address] [place] [address] Dr. Marla Varner Albumin/Globulin [Mass ratio] 0.8 {ratio} Normal [facility] Comment on above: Performed By: #### URIC, CMP #### [facility] [address] [place] [address] Dr. Marla Varner ALP [Catalytic activity/Vol] 97 U/L Normal 46-116 [facility] Comment on above: Performed By: #### URIC, CMP #### [facility] [address] [place] [address] Dr. Marla Varner ALT [Catalytic activity/Vol] 26 U/L Normal 14-59 [facility] Comment on above: Performed By: #### URIC, CMP #### [facility] [address] [place] [address] Dr. Marla Varner Anion gap [Moles/Vol] 18.0 mmol/L Normal [facility] Comment on above: Performed By: #### URIC, CMP #### [facility] [address] [place] [address] Dr. Marla Varner AST [Catalytic activity/Vol] 17 U/L Normal 15-37 [facility] Comment on above: Performed By: #### URIC, CMP #### [facility] [address] [place] [address] Dr. Marla Varner Bilirubin [Mass/Vol] 0.5 mg/dL Normal 0.2-1.0 [facility] Comment on above: Performed By: #### URIC, CMP #### [facility] [address] [place] [address] Dr. Marla Varner Calcium [Mass/Vol] 8.8 mg/dL Normal 8.5-10.1 [facility] Comment on above: Performed By: #### URIC, CMP #### [facility] [address] [address] [address] Marla Varner Chloride [Moles/Vol] 100 mmol/L Normal 98-107 [facility] Comment on above: Performed By: #### URIC, CMP #### [facility] [address] [place] [address] Dr. Marla Varner CO2 [Moles/Vol] 25.3 mmol/L Normal 21.0-32.0 [facility] Comment on above: Performed By: #### URIC, CMP #### [facility] [address] [place] [address] Dr. Marla Varner Creatinine [Mass/Vol] 0.95 mg/dL Normal 0.55-1.02 [facility] Comment on above: Performed By: #### URIC, CMP #### [facility] [address] [place] [address] Dr. Marla Varner EGFR-AF GEORGIAN >60 Normal >=60 [facility] Comment on above: Performed By: #### URIC, CMP #### [facility] [address] [place] [address] Dr. Marla Varner EGFR-NON AF GEORGIAN 58 mL/min/1.73m2 Critically low >=60 [facility] Comment on above: Performed By: #### URIC, CMP #### [facility] [address] [place] [address] Dr. Marla Varner Globulin (S) [Mass/Vol] 3.9 g/dL Normal [facility] Comment on above: Performed By: #### URIC, CMP #### [facility] [address] [place] [address] Dr. Marla Varner Glucose [Mass/Vol] 253 mg/dL Critically high 74-106 [facility] Comment on above: Performed By: #### URIC, CMP #### [facility] [address] [address] [address] Marla Varner Potassium [Moles/Vol] 4.3 mmol/L Normal 3.5-5.1 [facility] Comment on above: Performed By: #### URIC, CMP #### [facility] [address] [place] [address] Dr. Marla Varner Protein [Mass/Vol] 7.2 g/dL Normal 6.4-8.2 [facility] Comment on above: Performed By: #### URIC, CMP #### [facility] [address] [place] [address] Dr. Marla Varner Sodium [Moles/Vol] 139 mmol/L Normal 136-145 [facility] Comment on above: Performed By: #### URIC, CMP #### [facility] [address] [place] [address] Dr. Marla Varner Urea nitrogen [Mass/Vol] 13.0 mg/dL Normal 7.0-18.0 [facility] Comment on above: Performed By: #### URIC, CMP #### [facility] [address] [place] [address] Dr. Marla Varner Urea nitrogen/Creatin ine [Mass ratio] 13.6 mg/mg Normal [facility] Comment on above: Performed By: #### URIC, CMP #### [facility] [address] [place] [address] Dr. Marla Varner SED RATE WESTERGRENon 2021 SED RATE 35 mm/hr Critically high <=30 [facility] Comment on above: Performed By: #### TSH #### [facility] [address] [place] [address] Dr. Marla Varner URIC ACID SERUMon 04-21-2022 Urate [Mass/Vol] 3.6 mg/dL Normal 2.6-6.0 [facility] Comment on above: Performed By: #### URIC, CMP #### [facility] [address] [place] [address] Dr. Marla Varner XR DEXA BONE DENSITYon [...] by: KALEIGH SUTHERLAND Date: 2022-01-19 11:23 Normal [facility] CNOVSPon 10-21-2018 CNOVSP Visit (SP) Office (GYNOSA) -------EUNICE CASTILLO ([id number]) 1950 FDate Time Provider Department10/21/18 10:40 AM [...] this office note were sent to:[place] [address]?CC:Yimi Montemayor DO (PCP)Referring Provider: BLAINE THOMPSON [[id number]]Allergies As of Date: 10/21/2018 Noted Allergy ReactionPENICILLINS [...] Smoker [F17.200] INVALID FOR* More...Encounter Status:Closed by BLANIE THOMPSON MD on 10/23/18 Normal [facility] PROGRESSon 10-21-2018 Protein mass conc HNO ID: [id number]: Blaine Maldonadoervice: (none)Author Type: PhysicianType: Progress NotesFiled: [...] this office note were sent to:[place] [address]?CC:Yimi Montemayor DO (PCP) Normal [facility] CNOVon 04-15-2018 CNOV Office Visit (GYNOSA) -------EUNICE CASTILLO ([id number]) 1950 FDate Time Provider Department04/15/18 8:00 AM [...] I advised her to follow with her plant guide for routine health and gynmaintenance exams3. I will see her in 6 monthsBlaine Thompson MD, MPH25 min spent with the patient with >50% face to face counselingA letter and a copy of this office note were sent to:[place] [address]?CC:Yimi Montemayor DO (PCP)Referring Provider: BLAINE THOMPSON [[id number]]Allergies As of Date: 04/15/2018 Noted Allergy ReactionPENICILLINS [...] by BLAINE THOMPSON MD on 04/15/18 Normal [facility] PROGRESSon 04-15-2018 Protein mass conc HNO ID: [id number]: Blaine Maldonadoervice: (none)Author Type: PhysicianType: Progress NotesFiled: [...] cords and no skinchanges.ASSESSMENT:66 yo women with PRUA-3 with focal positive anal margins (vaginal marginsnegative with additional vaginal margins taken)PLAN:1. Overall healing very well2. No evidence of dysplasia noted on exam today3. I advised her to follow with her plant guide for routine health andgyn maintenance exams3. I will see her in 6 monthsBlaine Thompson MD, MPH25 min spent with the patient with >50% face to face counselingA letter and a copy of this office note were sent to:[place] [address]?CC:Yimi Montemayor DO (PCP) Normal [facility] Encounters Encounter Date Encounter Type Care Provider Facility Start: 10-13-2023 Telephone encounter Zohra Gregorio [facility] - Medical Oncology Start: 01-12-2023 End: 01-13-2023 ambulatory [employer] BRUNILDA AICHHOLZ Facility:[facility] Start: 10-13-2022 End: 10-14-2022 ambulatory [employer] VESSEL OPERATOR BRUNILDA AICHHOLZ Facility:[facility] Start: 07-21-2022 End: 07-22-2022 ambulatory [employer] VESSEL OPERATOR BRUNILDA AICHHOLZ Facility:[facility] Start: 04-21-2022 End: 04-22-[address] DOCTOR THORNTON Facility:[facility] Start: 01-19-2022 End: 01-20-2022 ambulatory [employer] VESSEL OPERATOR BRUNILDA AICHHOLZ Facility:[facility] Start: 10-21-2018 End: 10-26-2018 Patient encounter procedure BLAINE THOMPSON [facility] Start: 04-15-2018 End: 04-15-2018 [facility] Plan of Treatment Date Care Activity Detail Author Start: 10-21-2023 Adult BMI Screening Adult BMI Screening [facility] Start: 06-18-2023 COVID-19 Vaccine ( season) COVID-19 Vaccine ( season) [facility] Start: 06-18-2023 Influenza vaccination Influenza Vaccine [facility] Start: 2015 Fall Risk Screening Fall Risk Screening [facility] Start: 2000 Administration of varicella zoster vaccine Zoster (Shingles) Vaccine (1 of 2) [facility] Start: 1969 DTaP,Tdap and Td Vaccines (1 - Tdap) DTaP,Tdap and Td Vaccines (1 - Tdap) [facility] Start: 1968 Adult BMI Follow Up Plan Adult BMI Follow Up Plan [facility] Start: 1962 Depression Screening Depression Screening [facility] Start: 1962 Tobacco Screening Tobacco Screening [facility] Start: 1950 Medicare Annual Wellness Visit Medicare Annual Wellness Visit [facility] Immunizations Immunization Date Immunization Notes Care Provider Canelo chandler 08-11-2022 influenza virus vacc ine, unspecified formulation Zohra [facility] Payers Date Payer Category Payer Medicare MEDICARE MEDICAR E PART A & B [id number] 2015-Present [phone] [address] [place] [address] [id number] 2015 Unknown [employer]AL [id number] 2015-Present [phone] [address] [place] [address] [id number] 1959 Medicare [id number] 1959 Unknown [id number] 1950 Unknown [id number] 1950 Unknown [id number] 1950 Unknown [id number] 1950 Unknown [id number] 1950 Unknown [id number] 1950 Unknown [id number] 1950 Unknown [id number] Social History Date Type Detail Facility [facility]: 10-31-2019 [facility] History of tobacco use Cigarette Smoker P [facility] Start: 10-31-2019 End: 11-13-2020 Cigarettes smoked current (pack per day) - [facility] Start: 10-31-2019 Tobacco use and exposure Smoke less tobacco non-user [facility] Start: 11-13-2020 Alcohol intake Lifetime non-d rona (finding) [facility] Start: 08-16-2019 End: 11-13-2020 Alcohol Use Disorder Identification Test - Consumption [AUDIT-C] [facility] Frequency of Alcohol Consumption [facility] Start: 1950 Sex Assigned At Not on file P [facility] [facility] Note 10-13-2023 Telephone Encounter - Zohra Oates - 10/13/2023 2:33 PM EST Note Date & Type Note Facility 10-13-2023 Miscellaneous Notes Formattin g of this note might be different from the original. CALLED TO CANCEL FOLLOW UP WITH ANTONIETTA SHE DOES NOT WANT TO RESCHEDULE AT THIS TIME documented in this encounter [facility] Telephone encounter Note 10-13-2023 Telephone Encounter - Zohra Oates - 10/13/2023 2:33 PM EST Note Date & Type Note Facility 10-13-2023 Telephone encount er Note CALLED TO CANCEL FOLLOW UP WITH ANTONIETTA SHE DOES NOT WANT TO RESCHEDULE AT THIS TIME [facility] Instructions Note Date & Type Note Facility Instructions Not on filedocumented in this en counter [facility]2 System Summary Purpose Family History No Family History Records FoundNo Family History Records Found Advance Directives No Advanced Directives Records FoundNo Advanced Directives Records Found Additional Source Comments INFORMATION SOURCE (unrecogn ized section and content) DATE CREATED AUTHOR 10/27/2018 [facility] DATE CREATED AUTHOR AUTHOR'S ORGANIZ ATION 01/15/2023 [facility] Care Teams (unrecognized sec tion and content) [employer] First Relationship Specialty Start Date End Date Brunilda Rose, PROPULSION GENERATOR REPAIRER-COMMERCIAL FISHING VESSEL OPERATOR [address] [place] [id number] PCP - General Nurse Practitioner 08/16/19 FOR [...] BE BASED ON THE PRIMARY CLINICAL RECORDS. [facility]. provides no warranty or guarantee of the accuracy or completeness of information in this document.
== END 2024-05-05 08:48 | disposition home or self-care (01) ==
LOC: RAD 08:47
PROVIDERS: PCP Nurse Practitioner; Visit Provider Internal Medicine Rheumatology
DX: M81.0 Age-related osteoporosis without current pathological fracture (principal)
CPT/HCPCS: 77080

== ENCOUNTER 2024-06-22 06:49 | Outpatient (OUT) | payer MEDICARE, OTHER, SELFPAY ==
--- OUTSIDE RECORDS SUMMARY | 2024-06-22 06:54 | XMS_ITS | CCD ---
Author Organization [facility] Care Team Providers Care Member Of Parliament Name Role Phone MAHDI, BLAINE Unavailable Unavailable MAHDI, BLAINE Unavailable Unavailable MAHDI, BLAINE Unavailable Unavailable MAHDI, BLAINE Unavailable Unavailable AICHHOLZ, LNA BRUNILDA Primary Care Unavailable MISC, DR SMITH Attending Unavailable MISC, DR SMITH Consulting Unavailable MISC, DR SMITH Admitting Unavailable AICHHOLZ, LNA BRUNILDA Consulting Unavailable AICHHOLZ, LNA BRUNILDA Admitting Unavailable AICHHOLZ, LNA BRUNILDA Primary Care Unavailable AICHHOLZ, LNA BRUNILDA Attending Unavailable MISC, DR SMITH Admitting Unavailable AICHHOLZ, LNA BRUNILDA Primary Care Unavailable MISC, DR SMITH Attending Unavailable MISC, DR SMITH Consulting Unavailable AICHHOLZ, LNA BRUNILDA Attending Unavailable AICHHOLZ, LNA BRUNILDA Consulting Unavailable AICHHOLZ, LNA BRUNILDA Primary Care Unavailable AICHHOLZ, LNA BRUNILDA Admitting Unavailable AICHHOLZ, LNA BRUNILDA Primary Care Unavailable MISC, DR SMITH Attending Unavailable MISC, DR SMITH Consulting Unavailable AICHHOLZ, LNA BRUNILDA Admitting Unavailable AICHHOLZ, LNA BRUNILDA Primary Care Unavailable THERESA, DR KAPOOR Admitting Unavailable WEST, DR KALEIGH Jameson Consulting Unavailable CARDENAS, DR KAPOOR Attending Unavailable CARDENAS, DR KAPOOR Consulting Unavailable MISC, DR SMITH Attending Unavailable AICHHOLZ, LNA BRUNILDA Primary Care Unavailable MISC, DR SMITH Consulting Unavailable MISC, DR SMITH Admitting Unavailable Aichholz CORDUROY CUTTER OPERATOR-LNA, Brunilda J Primary Care Provider AICSHAHBAZZ, BRUNILDA Attending Unavailable AICHHOLZ, BRUNILDA Attending Unavailable Allergies Allergy Classification Reported Allergen(s) Allergy Type Date of Onset Reaction(s) Facility (2 sources) Penicillins; Translations: [PENICILLINS] Propensity to adverse reactions to drug (disorder) 6 Rash [facility] Repository (1 source) Piroxicam Drug Allergy 9 [facility] Medications Current Medications Medication Drug Class(es) Dates [...] 01-19-2022 Chronic Other aftercare (1 source) Other fdc (current) drug therapy; Translations: [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 Marla Varner Basophils/100 WBC (Bld) 0.1 % Critically low 0.2-2.0 [facility] Comment on above: Performed By: #### TSH #### [facility] [address] [place] [address] Dr. Marla Varner EO # 0.3 103/ul Normal 0.0-0.7 [facility] Comment on above: Performed By: #### TSH #### [facility] [address] [place] [address] Dr. Marla Varner Eosinophils/100 WBC (Bld) 4.6 % Normal 0.9-7.0 [facility] Comment on above: Performed By: #### TSH #### [facility] [address] [place] [address] Dr. Marla Varner Erythrocyte distribution width (RBC) [Ratio] 14.6 % Normal 11.0-15.0 [facility] Comment on above: Performed By: #### TSH #### [facility] [address] [place] [address] Dr. Marla Varner Hematocrit (Bld) [Volume fraction] 46.0 % Normal 36.0-48.0 [facility] Comment on above: Performed By: #### TSH #### [facility] [address] [place] [address] Dr. Marla Varner Hemoglobin (Bld) [Mass/Vol] 15.1 g/dL Normal 12.0-16.0 [facility] Comment on above: Performed By: #### TSH #### [facility] [address] [place] [address] Dr. Marla Varner IG # 0.01 10e3/ul Normal 0.00-0.03 [facility] Comment on above: Performed By: #### TSH #### [facility] [address] [place] [address] Dr. Marla Varner IG % 0.1 % Normal 0.0-0.5 [facility] Comment on above: Performed By: #### TSH #### [facility] [address] [place] [address] Dr. Marla Varner LYMPH # 1.3 103/ul Normal 1.2-3.8 [facility] Comment on above: Performed By: #### TSH #### [facility] [address] [place] [address] Dr. Marla Varner Lymphocytes/100 WBC (Bld) 19.7 % Critically low 20.5-60.0 [facility] Comment on above: Performed By: #### TSH #### [facility] [address] [place] [address] Dr. Marla Varner MANUAL DIFF REQ NO Normal [facility] Comment on above: Performed By: #### TSH #### [facility] [address] [place] [address] Dr. Marla Varner MCH (RBC) [Entitic mass] 33.6 pg Normal 26.7-34.0 [facility] Comment on above: Performed By: #### TSH #### [facility] [address] [place] [address] Dr. Marla Varner MCHC (RBC) [Mass/Vol] 32.8 g/dL Normal 29.9-35.2 [facility] Comment on above: Performed By: #### TSH #### [facility] [address] [place] [address] Dr. Marla Varner MCV (RBC) [Entitic vol] 102.4 fL Critically high 81.0-99.0 [facility] Comment on above: Performed By: #### TSH #### [facility] [address] [place] [address] Dr. Marla Varner MONO # 0.5 103/ul Normal 0.3-0.8 [facility] Comment on above: Performed By: #### TSH #### [facility] [address] [place] [address] Dr. Marla Varner Monocytes/100 WBC (Bld) 7.3 % Normal 1.7-12.0 [facility] Comment on above: Performed By: #### TSH #### [facility] [address] [place] [address] Dr. Marla Varner NEUT # 4.6 103/ul Normal 1.4-6.5 [facility] Comment on above: Performed By: #### TSH #### [facility] [address] [place] [address] Dr. Marla Varner Neutrophils/100 WBC (Bld) 68.2 % Normal 43.0-75.0 [facility] Comment on above: Performed By: #### TSH #### [facility] [address] [address] [address] Marla Varner Platelet mean volume (Bld) [Entitic vol] 9.1 fL Critically low 9.5-13.5 [facility] Comment on above: Performed By: #### TSH #### [facility] [address] [place] [address] Dr. Marla Varner PLT 194 103/ul Normal 150-450 [facility] Comment on above: Performed By: #### TSH #### [facility] [address] [address] [address] Marla Varner RBC 4.49 106/ul Normal 4.20-5.40 [facility] Comment on above: Performed By: #### TSH #### [facility] [address] [place] [address] Dr. Marla Varner WBC 6.7 103/ul Normal 4.0-11.0 [facility] Comment on above: Performed By: #### TSH #### [facility] [address] [place] [address] Dr. Marla Varner PROF 14(COMP METB)on 023 Albumin [Mass/Vol] 3.6 g/dL Normal 3.4-5.0 [facility] Comment on above: Performed By: #### URIC, CMP #### [facility] [address] [place] [address] Dr. Marla Varner Albumin/Globulin [Mass ratio] 1.0 {ratio} Normal [facility] Comment on above: Performed By: #### URIC, CMP #### [facility] [address] [place] [address] Dr. Marla Varner ALP [Catalytic activity/Vol] 93 U/L Normal 46-116 [facility] Comment on above: Performed By: #### URIC, CMP #### [facility] [address] [place] [address] Dr. Marla Varner ALT [Catalytic activity/Vol] 26 U/L Normal 14-59 [facility] Comment on above: Performed By: #### URIC, CMP #### [facility] [address] [address] [address] Marla Varner Anion gap [Moles/Vol] 12.3 mmol/L Normal [facility] Comment on above: Performed By: #### URIC, CMP #### [facility] [address] [address] [address] Marla Varner AST [Catalytic activity/Vol] 20 U/L Normal 15-37 [facility] Comment on above: Performed By: #### URIC, CMP #### [facility] [address] [place] [address] Dr. Marla Varner Bilirubin [Mass/Vol] 0.4 mg/dL Normal 0.2-1.0 [facility] Comment on above: Performed By: #### URIC, CMP #### [facility] [address] [place] [address] Dr. Marla Varner Calcium [Mass/Vol] 9.2 mg/dL Normal 8.5-10.1 [facility] Comment on above: Performed By: #### URIC, CMP #### [facility] [address] [place] [address] Dr. Marla Varner Chloride [Moles/Vol] 102 mmol/L Normal 98-107 [facility] Comment on above: Performed By: #### URIC, CMP #### [facility] [address] [place] [address] Dr. Marla Varner CO2 [Moles/Vol] 32.3 mmol/L Critically high 21.0-32.0 [facility] Comment on above: Performed By: #### URIC, CMP #### [facility] [address] [place] [address] Dr. Marla Varner Creatinine [Mass/Vol] 0.84 mg/dL Normal 0.55-1.02 [facility] Comment on above: Performed By: #### URIC, CMP #### [facility] [address] [place] [address] Dr. Marla Varner EGFR-AF ROMANIAN >60 Normal >=60 [facility] Comment on above: Performed By: #### URIC, CMP #### [facility] [address] [place] [address] Dr. Marla Varner EGFR-NON AF ROMANIAN >60 Normal >=60 [facility] Comment on above: Performed By: #### URIC, CMP #### [facility] [address] [address] [address] Marla Varner Globulin (S) [Mass/Vol] 3.7 g/dL Normal [facility] Comment on above: Performed By: #### URIC, CMP #### [facility] [address] [address] [address] Marla Varner Glucose [Mass/Vol] 114 mg/dL Critically high 74-106 [facility] Comment on above: Performed By: #### URIC, CMP #### [facility] [address] [address] [address] Marla Varner Potassium [Moles/Vol] 4.6 mmol/L Normal 3.5-5.1 [facility] Comment on above: Performed By: #### URIC, CMP #### [facility] [address] [address] [address] Marla Varner Protein [Mass/Vol] 7.3 g/dL Normal 6.4-8.2 [facility] Comment on above: Performed By: #### URIC, CMP #### [facility] [address] [place] [address] Dr. Marla Varner Sodium [Moles/Vol] 142 mmol/L Normal 136-145 [facility] Comment on above: Performed By: #### URIC, CMP #### [facility] [address] [address] [address] Marla Varner Urea nitrogen [Mass/Vol] 15.0 mg/dL Normal 7.0-18.0 [facility] Comment on above: Performed By: #### URIC, CMP #### [facility] [address] [place] [address] Dr. Marla Varner Urea nitrogen/Creatin ine [Mass ratio] 17.9 mg/mg Normal [facility] Comment on above: Performed By: #### URIC, CMP #### [facility] [address] [place] [address] Dr. Marla Varner SED RATE WESTERGRENon 2022 SED RATE 47 mm/hr Critically high <=30 [facility] Comment on above: Performed By: #### SEDR #### [facility] [address] [place] [address] Dr. Marla Varner URIC ACID SERUMon 01-12-2023 Urate [Mass/Vol] 3.3 mg/dL Normal 2.6-6.0 [facility] Comment on above: Performed By: #### URIC, CMP #### [facility] [address] [place] [address] Dr. Marla Varner CBC AUTO DIFFon 10-13-2022 BASO # 0.0 103/ul Normal 0.0-0.1 [facility] Comment on above: Performed By: #### INSULT #### [facility] [address] [place] [address] Dr. Marla Varner Basophils/100 WBC (Bld) 0.3 % Normal 0.2-2.0 [facility] Comment on above: Performed By: #### INSULT #### [facility] [address] [place] [address] Dr. Marla Varner EO # 0.4 103/ul Normal 0.0-0.7 [facility] Comment on above: Performed By: #### INSULT #### [facility] [address] [place] [address] Dr. Marla Varner Eosinophils/100 WBC (Bld) 5.8 % Normal 0.9-7.0 [facility] Comment on above: Performed By: #### INSULT #### [facility] [address] [place] [address] Dr. Marla Varner Erythrocyte distribution width (RBC) [Ratio] 14.8 % Normal 11.0-15.0 [facility] Comment on above: Performed By: #### INSULT #### [facility] [address] [place] [address] Dr. Marla Varner Hematocrit (Bld) [Volume fraction] 44.4 % Normal 36.0-48.0 [facility] Comment on above: Performed By: #### INSULT #### [facility] [address] [place] [address] Dr. Marla Varner Hemoglobin (Bld) [Mass/Vol] 14.6 g/dL Normal 12.0-16.0 [facility] Comment on above: Performed By: #### INSULT #### [facility] [address] [place] [address] Dr. Marla Varner IG # 0.02 10e3/ul Normal 0.00-0.03 [facility] Comment on above: Performed By: #### INSULT #### [facility] [address] [place] [address] Dr. Marla Varner IG % 0.3 % Normal 0.0-0.5 [facility] Comment on above: Performed By: #### INSULT #### [facility] [address] [place] [address] Dr. Marla Varner LYMPH # 1.6 103/ul Normal 1.2-3.8 [facility] Comment on above: Performed By: #### INSULT #### [facility] [address] [place] [address] Dr. Marla Varner Lymphocytes/100 WBC (Bld) 21.6 % Normal 20.5-60.0 [facility] Comment on above: Performed By: #### INSULT #### [facility] [address] [place] [address] Dr. Mrala Varner MANUAL DIFF REQ NO Normal [facility] Comment on above: Performed By: #### INSULT #### [facility] [address] [place] [address] Dr. Marla Varner MCH (RBC) [Entitic mass] 33.8 pg Normal 26.7-34.0 [facility] Comment on above: Performed By: #### INSULT #### [facility] [address] [place] [address] Dr. Marla Varner MCHC (RBC) [Mass/Vol] 32.9 g/dL Normal 29.9-35.2 [facility] Comment on above: Performed By: #### INSULT #### [facility] [address] [place] [address] Dr. Marla Varner MCV (RBC) [Entitic vol] 102.8 fL Critically high 81.0-99.0 [facility] Comment on above: Performed By: #### INSULT #### [facility] [address] [place] [address] Dr. Marla Varner MONO # 0.5 103/ul Normal 0.3-0.8 [facility] Comment on above: Performed By: #### INSULT #### [facility] [address] [place] [address] Dr. Marla Varner Monocytes/100 WBC (Bld) 6.9 % Normal 1.7-12.0 [facility] Comment on above: Performed By: #### INSULT #### [facility] [address] [place] [address] Dr. Marla Varner NEUT # 4.7 103/ul Normal 1.4-6.5 [facility] Comment on above: Performed By: #### INSULT #### [facility] [address] [place] [address] Dr. Marla Varner Neutrophils/100 WBC (Bld) 65.1 % Normal 43.0-75.0 [facility] Comment on above: Performed By: #### INSULT #### [facility] [address] [place] [address] Dr. Marla Varner Platelet mean volume (Bld) [Entitic vol] 9.3 fL Critically low 9.5-13.5 [facility] Comment on above: Performed By: #### INSULT #### [facility] [address] [place] [address] Dr. Marla Varner PLT 200 103/ul Normal 150-450 [facility] Comment on above: Performed By: #### INSULT #### [facility] [address] [place] [address] Dr. Marla Varner RBC 4.32 106/ul Normal 4.20-5.40 [facility] Comment on above: Performed By: #### INSULT #### [facility] [address] [place] [address] Dr. Marla Varner WBC 7.2 103/ul Normal 4.0-11.0 [facility] Comment on above: Performed By: #### INSULT #### [facility] [address] [place] [address] Dr. Marla Varner FREE T3on 10-13-2022 FREE T3 2.20 pg/mlL Normal 2.18-3.98 [facility] Comment on above: Performed By: #### TSH #### [facility] [address] [place] [address] Dr. Marla Varner FREE T4on 10-13-2022 Free T4 [Mass/Vol] 1.30 ng/dL Normal 0.76-1.46 [facility] Comment on above: Performed By: #### TSH #### [facility] [address] [place] [address] Dr. Marla Varner PROF 14(COMP METB)on 022 Albumin [Mass/Vol] 3.4 g/dL Normal 3.4-5.0 [facility] Comment on above: Performed By: #### CMP, URIC #### [facility] [address] [place] [address] Dr. Marla Varner Albumin/Globulin [Mass ratio] 0.9 {ratio} Normal [facility] Comment on above: Performed By: #### CMP, URIC #### [facility] [address] [place] [address] Dr. Marla Varner ALP [Catalytic activity/Vol] 92 U/L Normal 46-116 [facility] Comment on above: Performed By: #### CMP, URIC #### [facility] [address] [place] [address] Dr. Marla Varner ALT [Catalytic activity/Vol] 17 U/L Normal 14-59 The [facility] Comment on above: Performed By: #### CMP, URIC #### [facility] [address] [place] [address] Dr. Marla Varner Anion gap [Moles/Vol] 10.7 mmol/L Normal [facility] Comment on above: Performed By: #### CMP, URIC #### [facility] [address] [place] [address] Dr. Marla Varner AST [Catalytic activity/Vol] 17 U/L Normal 15-37 [facility] Comment on above: Performed By: #### CMP, URIC #### [facility] [address] [address] [address] Marla Varner Bilirubin [Mass/Vol] 0.4 mg/dL Normal 0.2-1.0 [facility] Comment on above: Performed By: #### CMP, URIC #### [facility] [address] [address] [address] Marla Varner Calcium [Mass/Vol] 8.8 mg/dL Normal 8.5-10.1 [facility] Comment on above: Performed By: #### CMP, URIC #### [facility] [address] [address] [address] Marla Varner Chloride [Moles/Vol] 101 mmol/L Normal 98-107 [facility] Comment on above: Performed By: #### CMP, URIC #### [facility] [address] [place] [address] Dr. Marla Varner CO2 [Moles/Vol] 32.5 mmol/L Critically high 21.0-32.0 [facility] Comment on above: Performed By: #### CMP, URIC #### [facility] [address] [address] [address] Marla Varner Creatinine [Mass/Vol] 0.72 mg/dL Normal 0.55-1.02 [facility] Comment on above: Performed By: #### CMP, URIC #### [facility] [address] [place] [address] Dr. Marla Varner EGFR-AF ROMANIAN >60 Normal >=60 [facility] Comment on above: Performed By: #### CMP, URIC #### [facility] [address] [address] [address] Marla Varner EGFR-NON AF ROMANIAN >60 Normal >=60 [facility] Comment on above: Performed By: #### CMP, URIC #### [facility] [address] [place] [address] Dr. Marla Varner Globulin (S) [Mass/Vol] 3.8 g/dL Normal [facility] Comment on above: Performed By: #### CMP, URIC #### [facility] [address] [address] [address] Marla Varner Glucose [Mass/Vol] 101 mg/dL Normal 74-106 [facility] Comment on above: Performed By: #### CMP, URIC #### [facility] [address] [address] [address] Marla Varner Potassium [Moles/Vol] 4.2 mmol/L Normal 3.5-5.1 [facility] Comment on above: Performed By: #### CMP, URIC #### [facility] [address] [address] [address] Marla Varner Protein [Mass/Vol] 7.2 g/dL Normal 6.4-8.2 [facility] Comment on above: Performed By: #### CMP, URIC #### [facility] [address] [address] [address] Marla Varner Sodium [Moles/Vol] 140 mmol/L Normal 136-145 [facility] Comment on above: Performed By: #### CMP, URIC #### [facility] [address] [address] [address] Marla Varner Urea nitrogen [Mass/Vol] 11.0 mg/dL Normal 7.0-18.0 [facility] Comment on above: Performed By: #### CMP, URIC #### [facility] [address] [address] [address] Marla Varner Urea nitrogen/Creatin ine [Mass ratio] 15.3 mg/mg Normal [facility] Comment on above: Performed By: #### CMP, URIC #### [facility] [address] [address] [address] Mar[facility] mm/hr Critically high <=30 [facility] Comment on above: Performed By: #### SEDR #### [facility] [address] [address] [address] Marla Varner TSHon 10-13-2022 TSH 1.307 uIU/mL Normal 0.358-3.740 [facility] Comment on above: Performed By: #### TSH #### [facility] [address] [place] [address] Dr. Marla Varner URIC ACID SERUMon 10-13-2022 Urate [Mass/Vol] 3.2 mg/dL Normal 2.6-6.0 [facility] Comment on above: Performed By: #### CMP, URIC #### [facility] [address] [place] [address] Dr. Marla Varner INSULIN FREE AND TOTALon Free Insulin 17 uU/mL Normal [facility] Comment on above: Result Comment: Reference Range: Pubertal Children and Adults (fasting): 0 - 17 Performed By: #### I NSULT #### [facility] [address] [place] [address] Dr. Marla Varner Total Insulin 17 uU/mL Normal [facility] Comment on above: Result Comment: Non-Diabetic: [...] developed and its performance characteristics determined by [employer]. It has not been cleared or approved by the Food and Drug Administration. Performed By: #### I NSULT #### [facility] [address] [place] [address] Dr. Marla Varner CBC AUTO DIFFon 07-21-2022 BASO # 0.0 103/ul Normal 0.0-0.1 [facility] Comment on above: Performed By: #### TSH #### [facility] [address] [place] [address] Dr. aMrla Varner Basophils/100 WBC (Bld) 0.3 % Normal 0.2-2.0 [facility] Comment on above: Performed By: #### TSH #### [facility] [address] [place] [address] Dr. Marla Varner EO # 0.2 103/ul Normal 0.0-0.7 [facility] Comment on above: Performed By: #### TSH #### [facility] [address] [place] [address] Dr. Marla Varner Eosinophils/100 WBC (Bld) 2.7 % Normal 0.9-7.0 [facility] Comment on above: Performed By: #### TSH #### [facility] [address] [place] [address] Dr. Marla Varner Erythrocyte distribution width (RBC) [Ratio] 14.8 % Normal 11.0-15.0 [facility] Comment on above: Performed By: #### TSH #### [facility] [address] [place] [address] Dr. Marla Varner Hematocrit (Bld) [Volume fraction] 47.6 % Normal 36.0-48.0 [facility] [facility] Comment on above: Performed By: #### TSH #### [facility] [address] [place] [address] Dr. Marla Varner Hemoglobin (Bld) [Mass/Vol] 15.4 g/dL Normal 12.0-16.0 [facility] Comment on above: Performed By: #### TSH #### [facility] [address] [place] [address] Dr. Marla Varner IG # 0.03 10e3/ul Normal 0.00-0.03 The [facility] Comment on above: Performed By: #### TSH #### [facility] [address] [place] [address] Dr. Marla Varner IG % 0.4 % Normal 0.0-0.5 The [facility] Comment on above: Performed By: #### TSH #### [facility] [address] [place] [address] Dr. Marla Varner LYMPH # 1.6 103/ul Normal 1.2-3.8 The [facility] Comment on above: Performed By: #### TSH #### [facility] [address] [place] [address] Dr. Marla Varner Lymphocytes/100 WBC (Bld) 21.1 % Normal 20.5-60.0 [facility] Comment on above: Performed By: #### TSH #### [facility] [address] [place] [address] Dr. Marla Varner MANUAL DIFF REQ NO Normal [facility] Comment on above: Performed By: #### TSH #### [facility] [address] [place] [address] Dr. Marla Varner MCH (RBC) [Entitic mass] 34.2 pg Critically high 26.7-34.0 [facility] Comment on above: Performed By: #### TSH #### [facility] [address] [place] [address] Dr. Marla Varner MCHC (RBC) [Mass/Vol] 32.4 g/dL Normal 29.9-35.2 [facility] Comment on above: Performed By: #### TSH #### [facility] [address] [place] [address] Dr. Marla Varner MCV (RBC) [Entitic vol] 105.8 fL Critically high 81.0-99.0 [facility] Comment on above: Performed By: #### TSH #### [facility] [address] [place] [address] Dr. Marla Varner MONO # 0.5 103/ul Normal 0.3-0.8 [facility] Comment on above: Performed By: #### TSH #### [facility] [address] [place] [address] Dr. Marla Varner Monocytes/100 WBC (Bld) 7.4 % Normal 1.7-12.0 [facility] Comment on above: Performed By: #### TSH #### [facility] [address] [place] [address] Dr. Marla Varner NEUT # 5.0 103/ul Normal 1.4-6.5 The [facility] Comment on above: Performed By: #### TSH #### [facility] [address] [place] [address] Dr. Marla Varner Neutrophils/100 WBC (Bld) 68.1 % Normal 43.0-75.0 [facility] Comment on above: Performed By: #### TSH #### [facility] [address] [place] [address] Dr. Marla Varner Platelet mean volume (Bld) [Entitic vol] 10.5 fL Normal 9.5-13.5 [facility] Comment on above: Performed By: #### TSH #### [facility] [address] [place] [address] Dr. Marla Varner PLT 207 103/ul Normal 150-450 [facility] Comment on above: Performed By: #### TSH #### [facility] [address] [place] [address] Dr. Marla Varner RBC 4.50 106/ul Normal 4.20-5.40 [facility] Comment on above: Performed By: #### TSH #### [facility] [address] [place] [address] Dr. Marla Varner WBC 7.3 103/ul Normal 4.0-11.0 [facility] Comment on above: Performed By: #### TSH #### [facility] [address] [place] [address] Dr. Marla Varner FREE T4on 07-21-2022 Free T4 [Mass/Vol] 1.75 ng/dL Critically high 0.76-1.46 [facility] Comment on above: Performed By: #### TSH #### [facility] [address] [place] [address] Dr. Marla Varner PROF 14(COMP METB)on 022 Albumin [Mass/Vol] 3.7 g/dL Normal 3.4-5.0 [facility] Comment on above: Performed By: #### INSULT #### [facility] [address] [place] [address] Dr. Marla Varner Albumin/Globulin [Mass ratio] 1.0 {ratio} Normal [facility] Comment on above: Performed By: #### INSULT #### [facility] [address] [place] [address] Dr. Marla Varner ALP [Catalytic activity/Vol] 99 U/L Normal 46-116 [facility] Comment on above: Performed By: #### INSULT #### [facility] [address] [address] [address] Marla Varner ALT [Catalytic activity/Vol] 25 U/L Normal 14-59 The [facility] Comment on above: Performed By: #### INSULT #### [facility] [address] [address] [address] Marla Varner Anion gap [Moles/Vol] 15.7 mmol/L Normal [facility] Comment on above: Performed By: #### INSULT #### [facility] [address] [address] [address] Marla Varner AST [Catalytic activity/Vol] 20 U/L Normal 15-37 The [facility] Comment on above: Performed By: #### INSULT #### [facility] [address] [place] [address] Dr. Marla Varner Bilirubin [Mass/Vol] 0.4 mg/dL Normal 0.2-1.0 [facility] Comment on above: Performed By: #### INSULT #### [facility] [address] [place] [address] Dr. Marla Varner Calcium [Mass/Vol] 8.9 mg/dL Normal 8.5-10.1 [facility] Comment on above: Performed By: #### INSULT #### [facility] [address] [place] [address] Dr. Marla Varner Chloride [Moles/Vol] 99 mmol/L Normal 98-107 [facility] Comment on above: Performed By: #### INSULT #### [facility] [address] [place] [address] Dr. Marla Varner CO2 [Moles/Vol] 25.3 mmol/L Normal 21.0-32.0 The [facility] Comment on above: Performed By: #### INSULT #### [facility] [address] [place] [address] Dr. Marla Varner Creatinine [Mass/Vol] 0.80 mg/dL Normal 0.55-1.02 The [facility] Comment on above: Performed By: #### INSULT #### [facility] [address] [place] [address] Dr. Marla Varner EGFR-AF ROMANIAN >60 Normal >=60 The [facility] Comment on above: Performed By: #### INSULT #### [facility] [address] [place] [address] Dr. Marla Varner EGFR-NON AF ROMANIAN >60 Normal >=60 [facility] Comment on above: Performed By: #### INSULT #### [facility] [address] [place] [address] Dr. Marla Varner Globulin (S) [Mass/Vol] 3.6 g/dL Normal [facility] Comment on above: Performed By: #### INSULT #### [facility] [address] [place] [address] Dr. Marla Varner Glucose [Mass/Vol] 113 mg/dL Critically high 74-106 [facility] Comment on above: Performed By: #### INSULT #### [facility] [address] [place] [address] Dr. Marla Varner Potassium [Moles/Vol] 4.0 mmol/L Normal 3.5-5.1 [facility] Comment on above: Performed By: #### INSULT #### [facility] [address] [place] [address] Dr. Marla Varner Protein [Mass/Vol] 7.3 g/dL Normal 6.4-8.2 The [facility] Comment on above: Performed By: #### INSULT #### [facility] [address] [place] [address] Dr. Marla Varner Sodium [Moles/Vol] 136 mmol/L Normal 136-145 The [facility] Comment on above: Performed By: #### INSULT #### [facility] [address] [place] [address] Dr. Marla Varner Urea nitrogen [Mass/Vol] 10.0 mg/dL Normal 7.0-18.0 [facility] Comment on above: Performed By: #### INSULT #### [facility] [address] [place] [address] Dr. Marla Varner Urea nitrogen/Creatin ine [Mass ratio] 12.5 mg/mg Normal [facility] Comment on above: Performed By: #### INSULT #### [facility] [address] [place] [address] Dr. Marla Varner SED RATE WESTERGRENon 2021 SED RATE 34 mm/hr Critically high <=30 [facility] Comment on above: Performed By: #### TSH #### [facility] [address] [place] [address] Dr. Marla Varner TSHon 07-21-2022 TSH 0.152 uIU/mL Critically low 0.358-3.740 [facility] Comment on above: Performed By: #### TSH #### [facility] [address] [place] [address] Dr. Marla Varner URIC ACID SERUMon 07-21-2022 Urate [Mass/Vol] 3.3 mg/dL Normal 2.6-6.0 [facility] Comment on above: Performed By: #### INSULT #### [facility] [address] [place] [address] Dr. Marla Varner CBC AUTO DIFFon 04-21-2022 BASO # 0.0 103/ul Normal 0.0-0.1 [facility] Comment on above: Performed By: #### TSH #### [facility] [address] [place] [address] Dr. Marla Varner Basophils/100 WBC (Bld) 0.1 % Critically low 0.2-2.0 [facility] Comment on above: Performed By: #### TSH #### [facility] [address] [place] [address] Dr. Marla Varner EO # 0.4 103/ul Normal 0.0-0.7 The [facility] Comment on above: Performed By: #### TSH #### [facility] [address] [place] [address] Dr. Marla Varner Eosinophils/100 WBC (Bld) 5.1 % Normal 0.9-7.0 [facility] Comment on above: Performed By: #### TSH #### [facility] [address] [place] [address] Dr. Marla Varner Erythrocyte distribution width (RBC) [Ratio] 14.5 % Normal 11.0-15.0 [facility] Comment on above: Performed By: #### TSH #### [facility] [address] [place] [address] Dr. Marla Varner Hematocrit (Bld) [Volume fraction] 45.7 % Normal 36.0-48.0 [facility] Comment on above: Performed By: #### TSH #### [facility] [address] [place] [address] Dr. Marla Varner Hemoglobin (Bld) [Mass/Vol] 14.6 g/dL Normal 12.0-16.0 [facility] Comment on above: Performed By: #### TSH #### [facility] [address] [place] [address] Dr. Marla Varner IG # 0.03 10e3/ul Normal 0.00-0.03 [facility] Comment on above: Performed By: #### TSH #### [facility] [address] [place] [address] Dr. Marla Varner IG % 0.4 % Normal 0.0-0.5 [facility] Comment on above: Performed By: #### TSH #### [facility] [address] [place] [address] Dr. Marla Varner LYMPH # 0.9 103/ul Critically low 1.2-3.8 [facility] Comment on above: Performed By: #### TSH #### [facility] [address] [place] [address] Dr. Marla Varner Lymphocytes/100 WBC (Bld) 11.3 % Critically low 20.5-60.0 [facility] Comment on above: Performed By: #### TSH #### [facility] [address] [place] [address] Dr. Marla Varner MANUAL DIFF REQ NO Normal [facility] Comment on above: Performed By: #### TSH #### [facility] [address] [place] [address] Dr. Marla Varner MCH (RBC) [Entitic mass] 33.4 pg Normal 26.7-34.0 [facility] Comment on above: Performed By: #### TSH #### [facility] [address] [address] [address] Marla Varner MCHC (RBC) [Mass/Vol] 31.9 g/dL Normal 29.9-35.2 [facility] Comment on above: Performed By: #### TSH #### [facility] [address] [address] [address] Marla Varner MCV (RBC) [Entitic vol] 104.6 fL Critically high 81.0-99.0 [facility] Comment on above: Performed By: #### TSH #### [facility] [address] [address] [address] Marla Varner MONO # 0.3 103/ul Normal 0.3-0.8 [facility] Comment on above: Performed By: #### TSH #### [facility] [address] [place] [address] Dr. Marla Varner Monocytes/100 WBC (Bld) 3.9 % Normal 1.7-12.0 [facility] Comment on above: Performed By: #### TSH #### [facility] [address] [address] [address] Marla Varner NEUT # 6.1 103/ul Normal 1.4-6.5 [facility] Comment on above: Performed By: #### TSH #### [facility] [address] [address] [address] Marla Varner Neutrophils/100 WBC (Bld) 79.2 % Critically high 43.0-75.0 [facility] Comment on above: Performed By: #### TSH #### [facility] [address] [address] [address] Marla Varner Platelet mean volume (Bld) [Entitic vol] 10.4 fL Normal 9.5-13.5 The [facility] Comment on above: Performed By: #### TSH #### [facility] [address] [address] [address] Marla Varner PLT 195 103/ul Normal 150-450 [facility] Comment on above: Performed By: #### TSH #### [facility] [address] [place] [address] Dr. Marla Varner RBC 4.37 106/ul Normal 4.20-5.40 The [facility] Comment on above: Performed By: #### TSH #### [facility] [address] [place] [address] Dr. Marla Varner WBC 7.7 103/ul Normal 4.0-11.0 [facility] Comment on above: Performed By: #### TSH #### [facility] [address] [place] [address] Dr. Marla Varner PROF 14(COMP METB)on 022 Albumin [Mass/Vol] 3.3 g/dL Critically low 3.4-5.0 [facility] Comment on above: Performed By: #### URIC, CMP #### [facility] [address] [place] [address] Dr. Marla Varner Albumin/Globulin [Mass ratio] 0.8 {ratio} Normal [facility] Comment on above: Performed By: #### URIC, CMP #### [facility] [address] [place] [address] Dr. Marla Varner ALP [Catalytic activity/Vol] 97 U/L Normal 46-116 The [facility] Comment on above: Performed By: #### URIC, CMP #### [facility] [address] [place] [address] Dr. Marla Varner ALT [Catalytic activity/Vol] 26 U/L Normal 14-59 The [facility] Comment on above: Performed By: #### URIC, CMP #### [facility] [address] [place] [address] Dr. Marla Varner Anion gap [Moles/Vol] 18.0 mmol/L Normal [facility] Comment on above: Performed By: #### URIC, CMP #### [facility] [address] [place] [address] Dr. Marla Varner AST [Catalytic activity/Vol] 17 U/L Normal 15-37 The [facility] Comment on above: Performed By: #### URIC, CMP #### [facility] [address] [address] [address] Marla Varner Bilirubin [Mass/Vol] 0.5 mg/dL Normal 0.2-1.0 [facility] Comment on above: Performed By: #### URIC, CMP #### [facility] [address] [place] [address] Dr. Marla Varner Calcium [Mass/Vol] 8.8 mg/dL Normal 8.5-10.1 [facility] Comment on above: Performed By: #### URIC, CMP #### [facility] [address] [place] [address] Dr. Marla Varner Chloride [Moles/Vol] 100 mmol/L Normal 98-107 [facility] Comment on above: Performed By: #### URIC, CMP #### [facility] [address] [place] [address] Dr. Marla Varner CO2 [Moles/Vol] 25.3 mmol/L Normal 21.0-32.0 [facility] Comment on above: Performed By: #### URIC, CMP #### [facility] [address] [place] [address] Dr. Marla Varner Creatinine [Mass/Vol] 0.95 mg/dL Normal 0.55-1.02 The [facility] Comment on above: Performed By: #### URIC, CMP #### [facility] [address] [place] [address] Dr. Marla Varner EGFR-AF ROMANIAN >60 Normal >=60 [facility] Comment on above: Performed By: #### URIC, CMP #### [facility] [address] [place] [address] Dr. Marla Varner EGFR-NON AF ROMANIAN 58 mL/min/1.73m2 Critically low >=60 [facility] Comment on above: Performed By: #### URIC, CMP #### [facility] [address] [place] [address] Dr. Marla Varner Globulin (S) [Mass/Vol] 3.9 g/dL Normal [facility] Comment on above: Performed By: #### URIC, CMP #### [facility] [address] [place] [address] Dr. Marla Varner Glucose [Mass/Vol] 253 mg/dL Critically high 74-106 The [facility] Comment on above: Performed By: #### URIC, CMP #### [facility] [address] [address] [address] Marla Varner Potassium [Moles/Vol] 4.3 mmol/L Normal 3.5-5.1 [facility] Comment on above: Performed By: #### URIC, CMP #### [facility] [address] [address] [address] Marla Varner Protein [Mass/Vol] 7.2 g/dL Normal 6.4-8.2 [facility] Comment on above: Performed By: #### URIC, CMP #### [facility] [address] [address] [address] Marla Varner Sodium [Moles/Vol] 139 mmol/L Normal 136-145 The [facility] Comment on above: Performed By: #### URIC, CMP #### [facility] [address] [address] [address] Marla Varner Urea nitrogen [Mass/Vol] 13.0 mg/dL Normal 7.0-18.0 [facility] Comment on above: Performed By: #### URIC, CMP #### [facility] [address] [address] [address] Marla Varner Urea nitrogen/Creatin ine [Mass ratio] 13.6 mg/mg Normal [facility] Comment on above: Performed By: #### URIC, CMP #### [facility] [address] [address] [address] Marla Varner [facility] SED RATE 35 mm/hr Critically high <=30 [facility] Comment on above: Performed By: #### TSH #### [facility] [address] [address] [address] Marla Varner URIC ACID SERUMon 04-21-2022 Urate [Mass/Vol] 3.6 mg/dL Normal 2.6-6.0 The [facility] Comment on above: Performed By: #### URIC, CMP #### [facility] [address] [address] [address] Marla Varner XR DEXA BONE DENSITYon [...] by: KALEIGH SUTHERLAND Date: 2022-01-19 11:23 Normal [facility] CNOVSPon 10-21-2018 CNOVSP Visit (SP) Office (GYNOSA) -------EUNICE CASTILLO ([id number]) 1950 FDate Time Provider Department10/21/18 10:40 AM [...] this office note were sent to:[place] [id number]?CC:Yimi Montemayor DO (PCP)Referring Provider: BLAINE THOMPSON [[id number]]Allergies As of Date: 10/21/2018 Noted Allergy ReactionPENICILLINS [...] by BLAINE THOMPSON MD on 10/23/18 Normal [facility] PROGRESSon 10-21-2018 Protein mass conc HNO ID: [id number]: Blaine Maldonadoervice: (none)Author Type: PhysicianType: Progress NotesFiled: [...] this office note were sent to:[place] [id number]?CC:Yimi Montemayor DO (PCP) Normal [facility] CNOVon 04-15-2018 CNOV Office Visit (GYNOSA) -------EUNICE CASTILLO ([id number]) 1950 FDate Time Provider Department04/15/18 8:00 AM [...] I advised her to follow with her hospital food service worker for routine health and gynmaintenance exams3. I will see her in 6 monthsBlaine Thopmson MD, MPH25 min spent with the patient with >50% face to face counselingA letter and a copy of this office note were sent to:[place] [id number]?CC:Yimi Montemayor DO (PCP)Referring Provider: BLAINE THOMPSON [[id number]]Allergies As of Date: 04/15/2018 Noted Allergy ReactionPENICILLINS [...] by BLAINE THOMPSON MD on 04/15/18 [facility] Protein mass conc HNO ID: [id number]: Blaine MahdiService: (none)Author Type: PhysicianType: Progress NotesFiled: 04/15/2018 8:25 [...] I advised her to follow with her hospital food service worker for routine health andgyn maintenance exams3. [facility] Mahdi, MD, MPH25 min spent with the patient with >50% face to face counselingA letter and a copy of this office note were sent to:[place] [id number]?CC:Yimi Montemayor DO (PCP) Normal [facility] Encounters Encounter Date Encounter Type Care Provider Facility Start: 06-12-2024 End: 06-12-2024 ambulatory BRUNILDA AICHHOLZ Not Available Start: 12-13-2023 End: 12-13-2023 ambulatory BRUNILDA AICHHOLZ Not Available Start: 10-13-2023 Telephone encounter Zohra Gregorio [facility] Start: 01-12-2023 End: 01-13-2023 ambulatory [facility] BRUNILDA AICHHOLZ Facility:[facility] Start: 10-13-2022 End: 10-14-2022 ambulatory [facility] BRUNILDA AICHHOLZ Facility:[facility] Start: 07-21-2022 End: 07-22-2022 ambulatory [facility] BRUNILDA AICHHOLZ Facility:[facility] Start: 04-21-2022 End: 04-22-[address] DOCTOR THORNTON Facility:[facility] Start: 01-19-2022 End: 01-20-2022 ambulatory [facility] BRUNILDA AICHHOLZ Facility:[facility] Start: 10-21-2018 End: 10-26-2018 Patient encounter procedure BLAINE THOMPSON [facility] Start: 04-15-2018 End: 04-15-2018 [facility] Plan of Treatment Date Care Activity Detail Author Start: 10-21-2023 Adult BMI Screening Adult BMI Screening [facility] Start: 06-18-2023 COVID-19 Vaccine ( season) COVID-19 Vaccine ( season) [facility] Start: 06-18-2023 Influenza vaccination Influenza Vaccine [facility] Start: 2015 Fall Risk Screening Fall Risk Screening [facility] Start: 2000 Administration of varicella zoster vaccine Zoster (Shingles) Vaccine (1 of 2) [facility] Start: 1969 DTaP,Tdap and Td Vaccines (1 - Tdap) DTaP,Tdap and Td Vaccines (1 - Tdap) [facility] Start: 1968 Adult BMI Follow Up Plan [facility] Start: 1962 [facility] Start: 1962 Tobacco Screening [facility] Start: 1950 Medicare Annual Wellness Visit Medicare Annual Wellness Visit [facility] Immunizations Immunization Date Immunization Notes Care Provider Fa [facility] 08-11-2022 influenza virus vacc ine, unspecified formulation Zohra Oates [facility] Payers Date Payer Category Payer Medicare MEDICARE MEDICAR E PART A & B [id number] 2015-Present [phone] [address] [place] [address] [id number] 2015 Unknown [employer]ADITIONAL [id number] 2015-Present [phone] [address] [place] [address] [id number] 1959 Medicare [id number] 1959 Unknown [id number] 1950 Unknown [id number] 1950 Unknown [id number] 1950 Unknown [id number] 1950 Unknown [id number] 1950 Unknown [id number] 1950 Unknown [id number] 1950 Unknown [id number] 1950 Unknown [id number] 1950 Unknown [id number] Social History Date Type Detail Facility Start: 10-31-2019 [facility] History of tobacco use Cigarette Smoker P [facility] Start: 10-31-2019 End: 11-13-2020 Cigarettes smoked current (pack per day) - Reported 1 [facility] Start: 10-31-2019 Tobacco use and exposure Smoke less tobacco non-user [facility] Start: 11-13-2020 Alcohol intake Lifetime non-d rona (finding) [facility] Start: 08-16-2019 End: 11-13-2020 Alcohol Use Disorder Identification Test - Consumption [AUDIT-C] [facility] Frequency of Alcohol Consumption Never [facility] Start: 1950 Sex Assigned At Not on file P [facility] Note 10-13-2023 Telephone Encounter - Zohra Oates - 10/13/2023 2:33 PM EST Note Date & Type Note Facility 10-13-2023 Miscellaneous Notes Formattin g of this note might be different from the original. CALLED TO CANCEL FOLLOW UP WITH ANTONIETTA SHE DOES NOT WANT TO RESCHEDULE AT THIS TIME documented in this encounter [facility] Telephone encounter Note 10-13-2023 Telephone Encounter - Zohra Oates - 10/13/2023 2:33 PM EST Note Date & Type Note Facility 10-13-2023 Telephone encount er Note CALLED TO CANCEL FOLLOW UP WITH ANTONIETTA SHE DOES NOT WANT TO RESCHEDULE AT THIS TIME [facility] Instructions Note Date & Type Note Facility Instructions Not on filedocumented in this en counter [facility] Summary Purpose Family History No Family History Records FoundNo Family History Records FoundNo Family History Records Found Advance Directives No Advanced Directives Records FoundNo Advanced Directives Records FoundNo Advanced Directives Records Found Additional Source Comments INFORMATION SOURCE (unrecogn ized section and content) DATE CREATED AUTHOR 10/27/2018 [facility] DATE CREATED AUTHOR AUTHOR'S ORGANIZ ATION 01/15/2023 [facility] DATE CREATED AUTHOR AUTHOR'S ORGANIZ ATION 06/13/2024 [facility] Care Teams (unrecognized sec tion and content) Member [employer] Relationship Specialty Start Date End Date Brunilda Rose, CORDUROY CUTTER OPERATOR-LNA [address] [facility] [place] [address] PCP - General Nurse Practitioner 08/16/19 FOR [...] THE PRIMARY CLINICAL RECORDS. [facility] [email or web address] [facility]. provides no warranty or guarantee of the accuracy or completeness of information in this document.
== END 2024-06-22 06:50 | disposition home or self-care (01) ==
LOC: LAB 06:51
PROVIDERS: PCP Nurse Practitioner; Visit Provider Registered Nurse
DX: E55.9 Vitamin D deficiency, unspecified (principal)
CPT/HCPCS: 36415; 82306

== ENCOUNTER 2024-06-22 06:54 | Outpatient (OUT) | payer MEDICARE, OTHER, SELFPAY ==
[2024-06-22 08:54] LABS: Estimated Average Glucose 111 mg/dL; Glycohemoglobin A1C 5.5 % (4.5-6.2)
== END 2024-06-22 06:55 | disposition home or self-care (01) ==
LOC: LAB 06:56
PROVIDERS: PCP Nurse Practitioner; Visit Provider Nurse Practitioner
DX: E55.9 Vitamin D deficiency, unspecified (principal); E11.9 Type 2 diabetes mellitus without complications
CPT/HCPCS: 36415; 82306; 83036

== ENCOUNTER 2024-10-16 11:37 | Outpatient (OUT) | payer MEDICARE, OTHER, SELFPAY ==
--- OUTSIDE RECORDS SUMMARY | 2024-10-16 11:44 | XMS_ITS | CCD ---
Author Organization [facility] Care Team Providers Care Broom Worker Name Role Phone MAHDI, BLAINE Unavailable Unavailable MAHDI, BLAINE Unavailable Unavailable MAHDI, BLAINE Unavailable Unavailable MAHDI, BLAINE Unavailable Unavailable AICHHOLZ, SAMPLER OVENS BRUNILDA Primary Care Unavailable MISC, DOCTOR Attending Unavailable MISC, DR SMITH Consulting Unavailable MISC, DR SMITH Admitting Unavailable AICHHOLZ, SAMPLER OVENS BRUNILDA Consulting Unavailable AICHHOLZ, SAMPLER OVENS BRUNILDA Admitting Unavailable AICHHOLZ, SAMPLER OVENS BRUNILDA Primary Care Unavailable AICHHOLZ, SAMPLER OVENS BRUNILDA Attending Unavailable MISC, DR SMITH Admitting Unavailable AICHHOLZ, SAMPLER OVENS BRUNILDA Primary Care Unavailable MISC, DR SMITH Attending Unavailable MISC, DR SMITH Consulting Unavailable AICHHOLZ, SAMPLER OVENS BRUNILDA Attending Unavailable AICHHOLZ, SAMPLER OVENS BRUNILDA Consulting Unavailable AICHHOLZ, SAMPLER OVENS BRUNILDA Primary Care Unavailable AICHHOLZ, SAMPLER OVENS BRUNILDA Admitting Unavailable AICHHOLZ, SAMPLER OVENS BRUNILDA Primary Care Unavailable MISC, DR SMITH Attending Unavailable MISC, DR SMITH Consulting Unavailable AICHHOLZ, SAMPLER OVENS BRUNILDA Admitting Unavailable AICHHOLZ, SAMPLER OVENS BRUNILDA Primary Care Unavailable THERESA, DR KAPOOR Admitting Unavailable WEST, DR KALEIGH Jameson Consulting Unavailable CARDENAS, DR KAPOOR Attending Unavailable CARDENAS, DR KAPOOR Consulting Unavailable MISC, DR SMITH Attending Unavailable AICHHOLZ, SAMPLER OVENS BRUNILDA Primary Care Unavailable MISC, DR SMITH Consulting Unavailable MISC, DR SMITH Admitting Unavailable Aichholz [employer] RESPONDER-SAMPLER OVENS, Brunilda J Primary Care Provider AICHHOLZ, BRUNILDA Attending Unavailable AICHHOLZ, BRUNILDA Attending Unavailable Aichholz BEHAVIORAL ANALYST, Brunilda Unavailable Jerry Shah MD Primary Care Provider Allergies Allergy Classification Reported Allergen(s) Allergy Type Date of Onset Reaction(s) Facility (6 sources) Penicillins; Translations: [PENICILLINS] Propensity to adverse reactions to drug (disorder) 6 Rash, Unknown [facility] Repository (5 sources) Piroxicam Drug Allergy 9 Swelling [facility] Medications Current Medications Medication Drug Class(es) Dates Sig (Normalized) Sig (Original) acetaminophen 325 mg oral tablet (1 source) Start: 10-30-2016 take 2 tablets by mouth every six hours as needed acetaminophen (TYLENOL) 325 mg tablet Take 650 mg by mouth every 6 (six) hours as needed. 0 10/30/2016 Active 0.8 ml adalimumab 50 mg/ml prefilled syringe (5 sources) Tumor Necrosis Factor Kiya adalimumab (Humira) 40 MG/0.8ML Prefilled Syringe Kit prefilled syringe Inject 40 mg under the skin every 14 (fourteen) days Active adalimumab (HUMI RA) 40 mg/0.8 mL injection Inject 40 mg under the skin Every 14 days. 0 Active allopurinol 300 mg oral tablet (5 sources) Xanthine Oxidase Inhibitor Start: 09-30-2023 take 1 tablet by mouth in the morning allopurinol (Zyloprim) 300 MG tablet Take 1 tablet by mouth in the morning. 09/30/2023 Active calcium citrate/vitamin D3 (CITRACAL REGULAR ORAL) (1 source) take 2 tablets by mouth once daily calcium citrate/vitamin D3 (CITRACAL REGULAR ORAL) Take 2 tablets by mouth daily. 0 Active calcium polycarbophil 625 mg oral tablet (5 sources) take 1 tablet by mouth in the morning Calcium Polycarbophil (fiber) 625 MG tablet Take 625 mg by mouth in the morning. Active cetirizine hydrochloride 10 mg oral tablet (5 sources) Histamine-1 Receptor Antagonist Start: 12-13-2023 take 1 tablet by mouth in the morning cetirizine (ZyrTEC) 10 MG tablet Indications: Allergic rhinitis, unspecified seasonality, unspecified trigger Take 1 tablet (10 mg) by mouth in the morning. 90 tablet 3 12/13/2023 Active take 1 tablet by mouth once shoshana y cetirizine (ZyrTEC) 10 mg tablet Take 10 mg by mouth daily. 0 Active colchicine 0.6 mg oral table t (7 sources) Start: 05-25-2024 colchicine 0.6 MG tablet Take 0.6 mg by mouth As directed 05/25/2024 Active Start: 09-30-2023 End: 06-12-2024 take 1 capsule by mouth in the morning Mitigare 0.6 MG capsule Take 1 capsule by mouth in the morning. 09/30/2023 06/12/2024 Discontinued (Therapy completed) Start: 03-30-2017 take 1 tablet by juarez th once daily colchicine (COLCRYS) 0.6 mg tablet Take 0.6 mg by mouth daily. 0 03/30/2017 Active docusate sodium 100 mg oral capsule (1 source) Start: 10-30-2016 take 1 capsule by mouth every twelve hours as needed docusate sodium (COLACE) 100 mg capsule Take 100 mg by mouth every 12 (twelve) hours as needed. 0 10/30/2016 Active folic acid 1 mg oral tablet (7 sources) Start: 09-30-2023 End: 09-10-2024 take 1 tablet by mouth once daily in the morning folic acid (Folvite) 1 MG tablet Indications: Rheumatoid arthritis with positive rheumatoid factor, involving unspecified site (CMS/HCC) Take 1 tablet (1,000 mcg) by mouth Daily Take 1 tablet by mouth in the morning. 90 tablet 3 06/12/2024 09/10/2024 Active furosemide 40 mg oral tablet (7 sources) Loop Diuretic Start: 12-13-2023 End: 09-10-2024 take 1 tablet by mouth once daily furosemide (Lasix) 40 MG tablet Indications: Lower extremity edema Take 1 tablet (40 mg) by mouth Daily 90 tablet 3 06/12/2024 09/10/2024 Active Start: 06-13-2016 take 1 tablet by juarez th once daily furosemide (LASIX) 40 mg tablet Take 40 mg by mouth daily. 0 06/13/2016 Active gabapentin 300 mg oral capsule (11 sources) Anti-epileptic Agent Start: 12-13-2023 End: 09-10-2024 take 1 capsule by mouth in the morning gabapentin (Neurontin) 300 MG capsule Indications: Polyneuropathy Take 1 capsule (300 mg) by mouth in the morning and 1 capsule (300 mg) before bedtime. 180 capsule 3 06/12/2024 09/10/2024 Active Start: 12-13-2023 End: 06-12-2024 take 1 capsule by mouth in the morning gabapentin (Neurontin) 100 MG capsule Indications: Polyneuropathy Take 1 capsule (100 mg) by mouth in the morning. 90 capsule 3 12/13/2023 06/12/2024 Discontinued (Ineffective) Start: 06-08-2016 take 1 capsule by mo uth once daily gabapentin (NEURONTIN) 300 mg capsule Take 300 mg by mouth nightly. 0 06/08/2016 Active gabapentin (NEUR ONTIN) 100 mg capsule Take 100 mg by mouth daily. !00 mg in AM, and 300 MG in PM 0 Active levothyroxine sodium 0.15 mg oral tablet (7 sources) l-Thyroxine Start: 12-13-2023 End: 09-10-2024 take 1 tablet by mouth before mealtime levothyroxine (Synthroid, Levoxyl) 150 MCG tablet Indications: Hypothyroidism, unspecified type (CMS/HCC) Take 1 tablet (150 mcg) by mouth in the morning. Take before meals. 90 tablet 3 06/12/2024 09/10/2024 Active Start: 08-04-2019 take 1 tablet by juarez once daily levothyroxine (SYNTHROID, LEVOTHROID) 175 MCG tablet Take 175 mcg by mouth daily. 0 08/04/2019 Active lisinopril 10 mg oral tablet (7 sources) Angiotensin Converting Enzyme Inhibitor Start: 12-13-2023 End: 09-10-2024 take 1 tablet by mouth once daily lisinopril 10 MG tablet Indications: Primary hypertension (CMS/HCC) Take 1 tablet (10 mg) by mouth Daily 90 tablet 3 06/12/2024 09/10/2024 Active take 1 tablet by mouth once shoshana y lisinopril (PRINIVIL,ZESTRIL) 10 mg tablet Take 10 mg by mouth daily. 0 Active loratadine 10 mg oral tablet (1 source) take 1 tablet by mouth once daily loratadine (CLARITIN) 10 mg tablet Take 10 mg by mouth daily. 0 Active magnesium hydroxide 80 mg/ml oral suspension (1 source) Start: 10-30-19 17 magnesium hydroxide (MILK OF MAGNESIA) 400 mg/5 mL suspension Take 15 mL by mouth. 0 10/30/2016 Active methotrexate 2.5 mg oral tablet (5 sources) Folate Analog Metabolic Inhibitor Start: 09-30-20 23 methotrexate 2.5 MG tablet Take 10 tablets by mouth 1 (one) time per week. 09/30/2023 Active Multiple Vitamin (Multi-Vitamin) tablet (4 sources) take 1 tablet by mouth in the morning Multiple Vitamin (Multi-Vitamin) tablet Take 1 tablet by mouth in the morning. Active multivitamin (THERAGRAN) tablet (1 source) take 1 tablet by mouth once daily multivitamin (THERAGRAN) tablet Take 1 tablet by mouth daily. 0 Active omeprazole 20 mg delayed release oral capsule (5 sources) Proton Pump Inhibitor Start: 12-13-19 take 1 capsule by mouth in the morning omeprazole (PriLOSEC) [address] capsule Indications: Gastroesophageal reflux disease without esophagitis Take 1 capsule (20 mg) by mouth in the morning and 1 capsule (20 mg) in the evening. Take before meals. 180 capsule 3 12/13/2023 Active take 1 capsule by mouth once oc ly omeprazole (PriLOSEC) 20 mg capsule Take 20 mg by mouth daily. 0 Active potassium chloride 10 meq extended release oral tablet (7 sources) Start: 06-12-2024 potassium chlo ride CR (Klor-Con) 10 MEQ ER tablet Indications: Lower extremity edema 2 pills twice a day2 pills twice a day 360 tablet 3 06/12/2024 Active Start: 06-12-2024 potassium chlo ride CR (Klor-Con) 10 MEQ ER tablet Indications: Lower extremity edema 2 pills twice a day2 pills twice a day 360 tablet 3 06/12/2024 Active Start: 12-13-2023 End: 06-12-2024 potassium chloride CR (Klor- Con) 10 MEQ ER tablet Indications: Lower extremity edema 2 pills twice a day 360 tablet 3 12/13/2023 06/12/2024 Discontinued (Reorder) Start: 03-30-2017 potassium chlo ride (K-DUR,KLOR-CON) 10 MEQ CR tablet Take 10 mEq by mouth daily. 0 03/30/2017 Active predniSONE 5 mg oral tablet (5 sources) Start: 09-30-2023 take 1.5 tablets by mouth in the morning predniSONE (Deltasone) 5 MG tablet Take 1.5 tablets by mouth in the morning. 09/30/2023 Active take 1 tablet by mouth once shoshana y predniSONE (DELTASONE) 5 mg tablet Take 5 mg by mouth daily. 0 Active vitamin b12 1 mg/ml injectab le solution (1 source) Vitamin B12 cyanocobalamin ( VITAMIN B-12) 1,000 mcg/mL injection Inject 1,000 mcg into the appropriate muscle every 30 (thirty) days. 0 Active Problems Active Problems Problem Classification Problem Date Documented Date Episodic/Chronic Cancer of other female genital organs (11 sources) Vulval intraepithelial neoplasia grade 3; Translations: [Carcinoma in situ of vulva] Onset: 10-04-2019 10-04-2019 Chronic Esophageal disorders (6 sources) Gastroesophageal reflux disease without esophagitis; Translations: [Gastro-esophageal reflux disease without esophagitis] Onset: 10-06-2016 12-13-2023 Chronic Essential hypertension (6 sources) Hypertensive disorder; Translations: [Essential (primary) hypertension] Onset: 12-13-2023 12-13-2023 Chronic Gout and other crystal arthropathies (9 sources) Idiopathic gout, multiple sites; Translations: [Chronic primary gouty arthritis] Onset: 10-06-2016 12-13-2023 Chronic Osteoarthritis (5 sources) Primary generalized (osteo)arthritis; Translations: [Osteoarthritis] Onset: 01-15-2023 12-13-2023 Chronic Osteoporosis (8 sources) Age-related osteoporosis without current pathological fracture; Translations: [Osteoporosis] Onset: 01-19-2022 Chronic Other aftercare (1 source) Other concreting supervisor (current) drug therapy; Translations: [OTH NURSING HOME CURRENT DRUG THERAPY] Onset: 01-15-2023 Episodic Other nervous system disorders (6 sources) Polyneuropathy; Translations: [Polyneuropathy, unspecified] Onset: 12-13-2023 12-13-2023 Chronic Other nutritional; endocrine; and metabolic disorders (7 sources) Body mass index 40+ - severely obese; Translations: [Body mass index (BMI) 45.0-49.9, adult] Onset: 09-27-2019 09-27-2019 Chronic Other nutritional; endocrine; and metabolic disorders (6 sources) Obesity caused by energy imbalance; Translations: [Morbid (severe) obesity due to excess calories] Onset: 12-13-2023 06-12-2024 Chronic Other upper respiratory disease (4 sources) Allergic rhinitis; Translations: [Allergic rhinitis, unspecified] Onset: 12-13-2023 12-13-2023 Chronic Rheumatoid arthritis and related disease (15 sources) Rheumatoid arthritis with rheumatoid factor of multiple sites without organ or systems involvement; Translations: [Rheumatoid arthritis] Onset: 10-06-2016 Resolved: 06-12-2024 Chronic Substance-related disorders (4 sources) Smoker; Translations: [Nicotine dependence, unspecified, uncomplicated] Onset: 10-06-2016 12-13-2023 Chronic Thyroid disorders (10 sources) Hypothyroidism, unspecified; Translations: [Hypothyroidism] Onset: 10-13-2022 Chronic Unclassified (1 source) Unknown / UNK(Unknown) Onset: 04-15-2018 Past or Other Problems Problem Classification Problem Date Documented Date Episodic/Chronic Abdominal pain (4 sources) Generalized abdominal pain; Translations: [Generalized abdominal pain] Onset: 12-13-2023 12-13-2023 Episodic Diabetes mellitus without complication (4 sources) Type 2 diabetes mellitus without complication; Translations: [Type 2 diabetes mellitus without complications] Onset: 11-22-2023 Resolved: 12-13-2023 12-13-2023 Chronic Diabetes mellitus without complication (6 sources) Hyperglycemia; Translations: [Hyperglycemia, unspecified] Onset: 12-13-2023 12-13-2023 Episodic Malaise and fatigue (6 sources) Fatigue; Translations: [Other fatigue] Onset: 12-13-2023 12-13-2023 Episodic Mood disorders (4 sources) Mood disorders Onset: 12-13-2023 12-13-2023 Nutritional deficiencies (4 sources) Cobalamin deficiency; Translations: [Deficiency of other specified B group vitamins] Onset: 12-13-2023 12-13-2023 Episodic Other connective tissue disease (4 sources) Calcaneal spur of left foot; Translations: [Calcaneal spur, left foot] Onset: 12-13-2023 12-13-2023 Episodic Other connective tissue disease (4 sources) H/O: osteoarthritis; Translations: [Personal history of other diseases of the musculoskeletal system and connective tissue] Onset: 12-13-2023 12-13-2023 Episodic Other non-traumatic joint disorders (4 sources) Pain in left shoulder; Translations: [Pain in joint, shoulder region] Onset: 12-13-2023 12-13-2023 Episodic Other nutritional; endocrine; and metabolic disorders (4 sources) Morbid obesity; Translations: [Morbid (severe) obesity due to excess calories] Onset: 10-06-2016 Resolved: 06-12-2024 06-12-2024 Chronic Residual codes; unclassified (6 sources) Edema of lower extremity; Translations: [Localized edema] Onset: 12-13-2023 12-13-2023 Episodic Residual codes; unclassified (6 sources) Tobacco user; Translations: [Tobacco use] Onset: 12-13-2023 12-13-2023 Episodic Residual codes; unclassified (4 sources) Noncompliance with treatment; Translations: [Non-compliant patient] Onset: 12-13-2023 12-13-2023 Episodic Results Test Name Value Interpretation Reference Range Facility [facility] HEMOGLOBIN A1Con 024 Glucose [Mass/Vol] 111 mg/dL [facility] HbA1c (Bld) [Mass fraction] 5.5 % 4.5 - 6.2 % [facility] Comment on above: ADA RECOMMENDED LIMIT 4.0 - 6.0 ADA THERAPEUTIC TARGET < 7.0 ACTION SUGGESTED > 7.0 [facility] CBC AUTO DIFFon 01-12-2023 BASO # 0.0 103/ul Normal 0.0-0.1 [facility] Comment on above: Performed By: #### TSH #### [facility] [address] [place] [address] Dr. Marla Varner Basophils/100 WBC (Bld) 0.1 % Critically low 0.2-2.0 [facility] Comment on above: Performed By: #### TSH #### [facility] [address] [place] [address] Dr. Marla Varner EO # 0.3 103/ul Normal 0.0-0.7 [facility] Comment on above: Performed By: #### TSH #### [facility] [address] [place] [address] Dr. Marla Varner Eosinophils/100 WBC (Bld) 4.6 % Normal 0.9-7.0 [facility] Comment on above: Performed By: #### TSH #### [facility] [address] [place] [address] Dr. Marla Varner Erythrocyte distribution width (RBC) [Ratio] 14.6 % Normal 11.0-15.0 [facility] Comment on above: Performed By: #### TSH #### [facility] [address] [address] [address] Marla Varner Hematocrit (Bld) [Volume fraction] 46.0 % Normal 36.0-48.0 [facility] Comment on above: Performed By: #### TSH #### [facility] [address] [address] [address] Marla Varner Hemoglobin (Bld) [Mass/Vol] 15.1 g/dL Normal 12.0-16.0 [facility] Comment on above: Performed By: #### TSH #### [facility] [address] [place] [address] Dr. Marla Varner IG # 0.01 10e3/ul Normal 0.00-0.03 [facility] Comment on above: Performed By: #### TSH #### [facility] [address] [place] [address] Dr. Marla Varner IG % 0.1 % Normal 0.0-0.5 [facility] Comment on above: Performed By: #### TSH #### [facility] [address] [address] [address] Marla Varner LYMPH # 1.3 103/ul Normal 1.2-3.8 [facility] Comment on above: Performed By: #### TSH #### [facility] [address] [address] [address] Marla Varner Lymphocytes/100 WBC (Bld) 19.7 % Critically low 20.5-60.0 [facility] Comment on above: Performed By: #### TSH #### [facility] [address] [address] [address] Marla Varner MANUAL DIFF REQ NO Normal [facility] Comment on above: Performed By: #### TSH #### [facility] [address] [address] [address] Marla Varner MCH (RBC) [Entitic mass] 33.6 pg Normal 26.7-34.0 [facility] Comment on above: Performed By: #### TSH #### [facility] [address] [address] [address] Marla Varner MCHC (RBC) [Mass/Vol] 32.8 g/dL Normal 29.9-35.2 [facility] Comment on above: Performed By: #### TSH #### [facility] [address] [place] [address] Dr. Marla Varner MCV (RBC) [Entitic vol] 102.4 fL Critically high 81.0-99.0 [facility] Comment on above: Performed By: #### TSH #### [facility] [address] [place] [address] Dr. Marla Varner MONO # 0.5 103/ul Normal 0.3-0.8 [facility] Comment on above: Performed By: #### TSH #### [facility] [address] [place] [address] Dr. Marla Varner Monocytes/100 WBC (Bld) 7.3 % Normal 1.7-12.0 [facility] Comment on above: Performed By: #### TSH #### [facility] [address] [place] [address] Dr. Marla Varner NEUT # 4.6 103/ul Normal 1.4-6.5 [facility] Comment on above: Performed By: #### TSH #### [facility] [address] [place] [address] Dr. Marla Varner Neutrophils/100 WBC (Bld) 68.2 % Normal 43.0-75.0 [facility] Comment on above: Performed By: #### TSH #### [facility] [address] [place] [address] Dr. Marla Varner Platelet mean volume (Bld) [Entitic vol] 9.1 fL Critically low 9.5-13.5 [facility] Comment on above: Performed By: #### TSH #### [facility] [address] [place] [address] Dr. Marla Varner PLT 194 103/ul Normal 150-450 [facility] Comment on above: Performed By: #### TSH #### [facility] [address] [place] [address] Dr. Marla Varner RBC 4.49 106/ul Normal 4.20-5.40 [facility] Comment on above: Performed By: #### TSH #### [facility] [address] [place] [address] Dr. Marla Varner WBC 6.7 103/ul Normal 4.0-11.0 [facility] Comment on above: Performed By: #### TSH #### [facility] [address] [address] [address] Marla Varner PROF 14(COMP METB)on 023 Albumin [Mass/Vol] 3.6 g/dL Normal 3.4-5.0 [facility] Comment on above: Performed By: #### URIC, CMP #### [facility] [address] [place] [address] Dr. Marla Varner Albumin/Globulin [Mass ratio] 1.0 {ratio} Normal [facility] Comment on above: Performed By: #### URIC, CMP #### [facility] [address] [place] [address] Dr. Marla Varner ALP [Catalytic activity/Vol] 93 U/L Normal 46-116 [facility] Comment on above: Performed By: #### URIC, CMP #### [facility] [address] [place] [address] Dr. Marla Varner ALT [Catalytic activity/Vol] 26 U/L Normal 14-59 [facility] Comment on above: Performed By: #### URIC, CMP #### [facility] [address] [place] [address] Dr. Marla Varner Anion gap [Moles/Vol] 12.3 mmol/L Normal [facility] Comment on above: Performed By: #### URIC, CMP #### [facility] [address] [place] [address] Dr. Marla Varner AST [Catalytic activity/Vol] 20 U/L Normal 15-37 [facility] Comment on above: Performed By: #### URIC, CMP #### [facility] [address] [place] [address] Dr. Marla Varner Bilirubin [Mass/Vol] 0.4 mg/dL Normal 0.2-1.0 [facility] Comment on above: Performed By: #### URIC, CMP #### [facility] [address] [address] [address] Marla Varner Calcium [Mass/Vol] 9.2 mg/dL Normal 8.5-10.1 [facility] Comment on above: Performed By: #### URIC, CMP #### [facility] [address] [address] [address] Marla Varner Chloride [Moles/Vol] 102 mmol/L Normal 98-107 [facility] Comment on above: Performed By: #### URIC, CMP #### [facility] [address] [place] [address] Dr. Marla Varner CO2 [Moles/Vol] 32.3 mmol/L Critically high 21.0-32.0 [facility] Comment on above: Performed By: #### URIC, CMP #### [facility] [address] [place] [address] Dr. Marla Varner Creatinine [Mass/Vol] 0.84 mg/dL Normal 0.55-1.02 [facility] Comment on above: Performed By: #### URIC, CMP #### [facility] [address] [place] [address] Dr. Marla Varner EGFR-AF ANGUILLAN >60 Normal >=60 [facility] Comment on above: Performed By: #### URIC, CMP #### [facility] [address] [place] [address] Dr. Marla Varner EGFR-NON AF ANGUILLAN >60 Normal >=60 [facility] Comment on above: Performed By: #### URIC, CMP #### [facility] [address] [place] [address] Dr. Marla Varner Globulin (S) [Mass/Vol] 3.7 g/dL Normal [facility] Comment on above: Performed By: #### URIC, CMP #### [facility] [address] [place] [address] Dr. Marla Varner Glucose [Mass/Vol] 114 mg/dL Critically high 74-106 [facility] Comment on above: Performed By: #### URIC, CMP #### [facility] [address] [place] [address] Dr. Marla Varner Potassium [Moles/Vol] 4.6 mmol/L Normal 3.5-5.1 [facility] Comment on above: Performed By: #### URIC, CMP #### [facility] [address] [address] [address] Marla Varner Protein [Mass/Vol] 7.3 g/dL Normal 6.4-8.2 [facility] Comment on above: Performed By: #### URIC, CMP #### [facility] [address] [address] [address] Marla Varner Sodium [Moles/Vol] 142 mmol/L Normal 136-145 [facility] Comment on above: Performed By: #### URIC, CMP #### [facility] [address] [place] [address] Dr. Marla Varner Urea nitrogen [Mass/Vol] 15.0 mg/dL Normal 7.0-18.0 [facility] Comment on above: Performed By: #### URIC, CMP #### [facility] [address] [place] [address] Dr. Marla Varner Urea nitrogen/Creatin ine [Mass ratio] 17.9 mg/mg Normal [facility] Comment on above: Performed By: #### URIC, CMP #### [facility] [address] [place] [address] Dr. Marla Varner SED RATE WESTERGRENon 2022 SED RATE 47 mm/hr Critically high <=30 [facility] Comment on above: Performed By: #### SEDR #### [facility] [address] [place] [address] Dr. Marla Varner URIC ACID SERUMon 01-12-2023 Urate [Mass/Vol] 3.3 mg/dL Normal 2.6-6.0 [facility] Comment on above: Performed By: #### URIC, CMP #### [facility] [address] [place] [address] Dr. Marla Varner CBC AUTO DIFFon 10-13-2022 BASO # 0.0 103/ul Normal 0.0-0.1 [facility] Comment on above: Performed By: #### INSULT #### [facility] [address] [address] [address] Marla Varner Basophils/100 WBC (Bld) 0.3 % Normal 0.2-2.0 [facility] Comment on above: Performed By: #### INSULT #### [facility] [address] [address] [address] Marla Varner EO # 0.4 103/ul Normal 0.0-0.7 [facility] Comment on above: Performed By: #### INSULT #### [facility] [address] [address] [address] Marla Varner Eosinophils/100 WBC (Bld) 5.8 % Normal 0.9-7.0 [facility] Comment on above: Performed By: #### INSULT #### [facility] [address] [place] [address] Dr. Marla Varner Erythrocyte distribution width (RBC) [Ratio] 14.8 % Normal 11.0-15.0 [facility] Comment on above: Performed By: #### INSULT #### [facility] [address] [place] [address] Dr. Marla Varner Hematocrit (Bld) [Volume fraction] 44.4 % Normal 36.0-48.0 [facility] Comment on above: Performed By: #### INSULT #### [facility] [address] [place] [address] Dr. Marla Varner Hemoglobin (Bld) [Mass/Vol] 14.6 g/dL Normal 12.0-16.0 [facility] Comment on above: Performed By: #### INSULT #### [facility] [address] [place] [address] Dr. Marla Varner IG # 0.02 10e3/ul Normal 0.00-0.03 [facility] Comment on above: Performed By: #### INSULT #### [facility] [address] [place] [address] Dr. Marla Varner IG % 0.3 % Normal 0.0-0.5 [facility] Comment on above: Performed By: #### INSULT #### [facility] [address] [place] [address] Dr. Marla Varner LYMPH # 1.6 103/ul Normal 1.2-3.8 [facility] Comment on above: Performed By: #### INSULT #### [facility] [address] [place] [address] Dr. Marla Varner Lymphocytes/100 WBC (Bld) 21.6 % Normal 20.5-60.0 [facility] Comment on above: Performed By: #### INSULT #### [facility] [address] [place] [address] Dr. Marla Varner MANUAL DIFF REQ NO Normal [facility] Comment on above: Performed By: #### INSULT #### [facility] [address] [place] [address] Dr. Marla Varner MCH (RBC) [Entitic mass] 33.8 pg Normal 26.7-34.0 [facility] Comment on above: Performed By: #### INSULT #### [facility] [address] [place] [address] Dr. Marla Varner MCHC (RBC) [Mass/Vol] 32.9 g/dL Normal 29.9-35.2 [facility] Comment on above: Performed By: #### INSULT #### [facility] [address] [place] [address] Dr. Marla Varner MCV (RBC) [Entitic vol] 102.8 fL Critically high 81.0-99.0 [facility] Comment on above: Performed By: #### INSULT #### [facility] [address] [place] [address] Dr. Marla Varner MONO # 0.5 103/ul Normal 0.3-0.8 [facility] Comment on above: Performed By: #### INSULT #### [facility] [address] [place] [address] Dr. Marla Varner Monocytes/100 WBC (Bld) 6.9 % Normal 1.7-12.0 [facility] Comment on above: Performed By: #### INSULT #### [facility] [address] [place] [address] Dr. Marla Varner NEUT # 4.7 103/ul Normal 1.4-6.5 [facility] Comment on above: Performed By: #### INSULT #### [facility] [address] [place] [address] Dr. Marla Varner Neutrophils/100 WBC (Bld) 65.1 % Normal 43.0-75.0 [facility] Comment on above: Performed By: #### INSULT #### [facility] [address] [place] [address] Dr. Marla Varner Platelet mean volume (Bld) [Entitic vol] 9.3 fL Critically low 9.5-13.5 [facility] Comment on above: Performed By: #### INSULT #### [facility] [address] [place] [address] Dr. Marla Varner PLT 200 103/ul Normal 150-450 [facility] Comment on above: Performed By: #### INSULT #### [facility] [address] [place] [address] Dr. Marla Varner RBC 4.32 106/ul Normal 4.20-5.40 [facility] Comment on above: Performed By: #### INSULT #### [facility] [address] [place] [address] Dr. Marla Varner WBC 7.2 103/ul Normal 4.0-11.0 [facility] Comment on above: Performed By: #### INSULT #### [facility] [address] [place] [address] Dr. Marla Varner FREE T3on 10-13-2022 FREE T3 2.20 pg/mlL Normal 2.18-3.98 [facility] Comment on above: Performed By: #### TSH #### [facility] [address] [place] [address] Dr. Marla Varner FREE T4on 10-13-2022 Free T4 [Mass/Vol] 1.30 ng/dL Normal 0.76-1.46 [facility] Comment on above: Performed By: #### TSH #### [facility] [address] [place] [address] Dr. Marla Varner PROF 14(COMP METB)on 022 Albumin [Mass/Vol] 3.4 g/dL Normal 3.4-5.0 [facility] Comment on above: Performed By: #### CMP, URIC #### [facility] [address] [place] [address] Dr. Marla Varner Albumin/Globulin [Mass ratio] 0.9 {ratio} Normal [facility] Comment on above: Performed By: #### CMP, URIC #### [facility] [address] [address] [address] Marla Varner ALP [Catalytic activity/Vol] 92 U/L Normal 46-116 [facility] Comment on above: Performed By: #### CMP, URIC #### [facility] [address] [place] [address] Dr. Marla Varner ALT [Catalytic activity/Vol] 17 U/L Normal 14-59 [facility] Comment on above: Performed By: #### CMP, URIC #### [facility] [address] [place] [address] Dr. Marla Varner Anion gap [Moles/Vol] 10.7 mmol/L Normal [facility] Comment on above: Performed By: #### CMP, URIC #### [facility] [address] [place] [address] Dr. Marla Varner AST [Catalytic activity/Vol] 17 U/L Normal 15-37 [facility] Comment on above: Performed By: #### CMP, URIC #### [facility] [address] [place] [address] Dr. Marla Varner Bilirubin [Mass/Vol] 0.4 mg/dL Normal 0.2-1.0 [facility] Comment on above: Performed By: #### CMP, URIC #### [facility] [address] [place] [address] Dr. Marla Varner Calcium [Mass/Vol] 8.8 mg/dL Normal 8.5-10.1 [facility] Comment on above: Performed By: #### CMP, URIC #### [facility] [address] [place] [address] Dr. Malra Varner Chloride [Moles/Vol] 101 mmol/L Normal 98-107 [facility] Comment on above: Performed By: #### CMP, URIC #### [facility] [address] [address] [address] Marla Varner CO2 [Moles/Vol] 32.5 mmol/L Critically high 21.0-32.0 [facility] Comment on above: Performed By: #### CMP, URIC #### [facility] [address] [address] [address] Marla Varner Creatinine [Mass/Vol] 0.72 mg/dL Normal 0.55-1.02 [facility] Comment on above: Performed By: #### CMP, URIC #### [facility] [address] [place] [address] Dr. Marla Varner EGFR-AF ANGUILLAN >60 Normal >=60 [facility] Comment on above: Performed By: #### CMP, URIC #### [facility] [address] [place] [address] Dr. Marla Varner EGFR-NON AF ANGUILLAN >60 Normal >=60 [facility] Comment on above: Performed By: #### CMP, URIC #### [facility] [address] [place] [address] Dr. Marla Varner Globulin (S) [Mass/Vol] 3.8 g/dL Normal [facility] Comment on above: Performed By: #### CMP, URIC #### [facility] [address] [place] [address] Dr. Marla Varner Glucose [Mass/Vol] 101 mg/dL Normal 74-106 [facility] Comment on above: Performed By: #### CMP, URIC #### [facility] [address] [place] [address] Dr. Marla Varner Potassium [Moles/Vol] 4.2 mmol/L Normal 3.5-5.1 [facility] Comment on above: Performed By: #### CMP, URIC #### [facility] [address] [place] [address] Dr. Marla Varner Protein [Mass/Vol] 7.2 g/dL Normal 6.4-8.2 [facility] Comment on above: Performed By: #### CMP, URIC #### [facility] [address] [address] [address] Marla Varner Sodium [Moles/Vol] 140 mmol/L Normal 136-145 [facility] Comment on above: Performed By: #### CMP, URIC #### [facility] [address] [address] [address] Marla Varner Urea nitrogen [Mass/Vol] 11.0 mg/dL Normal 7.0-18.0 [facility] Comment on above: Performed By: #### CMP, URIC #### [facility] [address] [address] [address] Marla Varner Urea nitrogen/Creatin ine [Mass ratio] 15.3 mg/mg Normal [facility] Comment on above: Performed By: #### CMP, URIC #### [facility] [address] [place] [address] Dr. Marla Var[facility] 51 mm/hr Critically high <=30 [facility] Comment on above: Performed By: #### SEDR #### [facility] [address] [address] [address] Marla Varner TSHon 10-13-2022 TSH 1.307 uIU/mL Normal 0.358-3.740 [facility] Comment on above: Performed By: #### TSH #### [facility] [address] [address] [address] Marla Varner URIC ACID SERUMon 10-13-2022 Urate [Mass/Vol] 3.2 mg/dL Normal 2.6-6.0 [facility] Comment on above: Performed By: #### CMP, URIC #### [facility] [address] [place] [address] Dr. Marla Varner INSULIN FREE AND TOTALon Free Insulin 17 uU/mL Normal [facility] Comment on above: Result Comment: Reference Range: Pubertal Children and Adults (fasting): 0 - 17 Performed By: #### I NSULT #### [facility] [address] [place], [place] [id number] Dr. Marla Varner Total Insulin 17 uU/mL Normal [facility] Comment on above: Result Comment: Non-Diabetic: In [...] developed and its performance characteristics determined by [employer]. It has not been cleared or approved by the Food and Drug Administration. Performed By: #### I NSULT #### [facility] [address] [place] [address] Dr. Marla Varner CBC AUTO DIFFon 07-21-2022 BASO # 0.0 103/ul Normal 0.0-0.1 [facility] Comment on above: Performed By: #### TSH #### [facility] [address] [place] [address] Dr. Marla Varner Basophils/100 WBC (Bld) 0.3 % Normal 0.2-2.0 [facility] Comment on above: Performed By: #### TSH #### [facility] [address] [place] [address] Dr. Marla Varner EO # 0.2 103/ul Normal 0.0-0.7 [facility] Comment on above: Performed By: #### TSH #### [facility] [address] [place] [address] Dr. Marla Varner Eosinophils/100 WBC (Bld) 2.7 % Normal 0.9-7.0 [facility] Comment on above: Performed By: #### TSH #### [facility] [address] [place] [address] Dr. Marla Varner Erythrocyte distribution width (RBC) [Ratio] 14.8 % Normal 11.0-15.0 [facility] Comment on above: Performed By: #### TSH #### [facility] [address] [place] [address] Dr. Marla Varner Hematocrit (Bld) [Volume fraction] 47.6 % Normal 36.0-48.0 [facility] Comment on above: Performed By: #### TSH #### [facility] [address] [place] [address] Dr. Marla Varner Hemoglobin (Bld) [Mass/Vol] 15.4 g/dL Normal 12.0-16.0 [facility] Comment on above: Performed By: #### TSH #### [facility] [address] [place] [address] Dr. Marla Varner IG # 0.03 10e3/ul Normal 0.00-0.03 [facility] Comment on above: Performed By: #### TSH #### [facility] [address] [place] [address] Dr. Marla Varner IG % 0.4 % Normal 0.0-0.5 [facility] Comment on above: Performed By: #### TSH #### [facility] [address] [place] [address] Dr. Marla Varner LYMPH # 1.6 103/ul Normal 1.2-3.8 [facility] Comment on above: Performed By: #### TSH #### [facility] [address] [place] [address] Dr. Marla Varner Lymphocytes/100 WBC (Bld) 21.1 % Normal 20.5-60.0 [facility] Comment on above: Performed By: #### TSH #### [facility] [address] [place] [address] Dr. Marla Varner MANUAL DIFF REQ NO Normal [facility] Comment on above: Performed By: #### TSH #### [facility] [address] [place] [address] Dr. Marla Varner MCH (RBC) [Entitic mass] 34.2 pg Critically high 26.7-34.0 [facility] Comment on above: Performed By: #### TSH #### [facility] [address] [place] [address] Dr. Marla Varner MCHC (RBC) [Mass/Vol] 32.4 g/dL Normal 29.9-35.2 [facility] Comment on above: Performed By: #### TSH #### [facility] [address] [place] [address] Dr. Marla Varner MCV (RBC) [Entitic vol] 105.8 fL Critically high 81.0-99.0 [facility] Comment on above: Performed By: #### TSH #### [facility] [address] [place] [address] Dr. Marla Varner MONO # 0.5 103/ul Normal 0.3-0.8 [facility] Comment on above: Performed By: #### TSH #### [facility] [address] [place] [address] Dr. Marla Varner Monocytes/100 WBC (Bld) 7.4 % Normal 1.7-12.0 [facility] Comment on above: Performed By: #### TSH #### [facility] [address] [place] [address] Dr. Marla Varner NEUT # 5.0 103/ul Normal 1.4-6.5 [facility] Comment on above: Performed By: #### TSH #### [facility] [address] [place] [address] Dr. Marla Varner Neutrophils/100 WBC (Bld) 68.1 % Normal 43.0-75.0 [facility] Comment on above: Performed By: #### TSH #### [facility] [address] [place] [address] Dr. Marla Varner Platelet mean volume (Bld) [Entitic vol] 10.5 fL Normal 9.5-13.5 [facility] Comment on above: Performed By: #### TSH #### [facility] [address] [place] [address] Dr. Marla Varner PLT 207 103/ul Normal 150-450 [facility] Comment on above: Performed By: #### TSH #### [facility] [address] [place] [address] Dr. Marla Varner RBC 4.50 106/ul Normal 4.20-5.40 [facility] Comment on above: Performed By: #### TSH #### [facility] [address] [place] [address] Dr. Marla Varner WBC 7.3 103/ul Normal 4.0-11.0 [facility] Comment on above: Performed By: #### TSH #### [facility] [address] [place] [address] Dr. Marla Varner FREE T4on 07-21-2022 Free T4 [Mass/Vol] 1.75 ng/dL Critically high 0.76-1.46 [facility] Comment on above: Performed By: #### TSH #### [facility] [address] [place] [address] Dr. Marla Varner PROF 14(COMP METB)on 022 Albumin [Mass/Vol] 3.7 g/dL Normal 3.4-5.0 [facility] Comment on above: Performed By: #### INSULT #### [facility] [address] [place] [address] Dr. Marla Varner Albumin/Globulin [Mass ratio] 1.0 {ratio} Normal [facility] Comment on above: Performed By: #### INSULT #### [facility] [address] [place] [address] Dr. Marla Varner ALP [Catalytic activity/Vol] 99 U/L Normal 46-116 [facility] Comment on above: Performed By: #### INSULT #### [facility] [address] [place] [address] Dr. Marla Varner ALT [Catalytic activity/Vol] 25 U/L Normal 14-59 [facility] Comment on above: Performed By: #### INSULT #### [facility] [address] [place] [address] Dr. Marla Varner Anion gap [Moles/Vol] 15.7 mmol/L Normal [facility] Comment on above: Performed By: #### INSULT #### [facility] [address] [place] [address] Dr. Marla Varner AST [Catalytic activity/Vol] 20 U/L Normal 15-37 [facility] Comment on above: Performed By: #### INSULT #### [facility] [address] [address] [address] Marla Varner Bilirubin [Mass/Vol] 0.4 mg/dL Normal 0.2-1.0 [facility] Comment on above: Performed By: #### INSULT #### [facility] [address] [address] [address] Marla Varner Calcium [Mass/Vol] 8.9 mg/dL Normal 8.5-10.1 [facility] Comment on above: Performed By: #### INSULT #### [facility] [address] [address] [address] Marla Varner Chloride [Moles/Vol] 99 mmol/L Normal 98-107 [facility] Comment on above: Performed By: #### INSULT #### [facility] [address] [place] [address] Dr. Malra Varner CO2 [Moles/Vol] 25.3 mmol/L Normal 21.0-32.0 [facility] Comment on above: Performed By: #### INSULT #### [facility] [address] [place] [address] Dr. Marla Varner Creatinine [Mass/Vol] 0.80 mg/dL Normal 0.55-1.02 [facility] Comment on above: Performed By: #### INSULT #### [facility] [address] [place] [address] Dr. Marla Varner EGFR-AF ANGUILLAN >60 Normal >=60 [facility] Comment on above: Performed By: #### INSULT #### [facility] [address] [place] [address] Dr. Marla Varner EGFR-NON AF ANGUILLAN >60 Normal >=60 [facility] Comment on above: Performed By: #### INSULT #### [facility] [address] [place] [address] Dr. Marla Varner Globulin (S) [Mass/Vol] 3.6 g/dL Normal [facility] Comment on above: Performed By: #### INSULT #### [facility] [address] [place] [address] Dr. Marla Varner Glucose [Mass/Vol] 113 mg/dL Critically high 74-106 [facility] Comment on above: Performed By: #### INSULT #### [facility] [address] [address] [address] Marla Varner Potassium [Moles/Vol] 4.0 mmol/L Normal 3.5-5.1 [facility] Comment on above: Performed By: #### INSULT #### [facility] [address] [address] [address] Marla Varner Protein [Mass/Vol] 7.3 g/dL Normal 6.4-8.2 [facility] Comment on above: Performed By: #### INSULT #### [facility] [address] [address] [address] Marla Varner Sodium [Moles/Vol] 136 mmol/L Normal 136-145 [facility] Comment on above: Performed By: #### INSULT #### [facility] [address] [address] [address] Marla Varner Urea nitrogen [Mass/Vol] 10.0 mg/dL Normal 7.0-18.0 [facility] Comment on above: Performed By: #### INSULT #### [facility] [address] [address] [address] Marla Varner Urea nitrogen/Creatin ine [Mass ratio] 12.5 mg/mg Normal [facility] Comment on above: Performed By: #### INSULT #### [facility] [address] [address] [address] Marla Varner SED RATE [facility] 2021 SED RATE 34 mm/hr Critically high <=30 [facility] Comment on above: Performed By: #### TSH #### [facility] [address] [address] [address] Marla Varner TSHon 07-21-2022 TSH 0.152 uIU/mL Critically low 0.358-3.740 [facility] Comment on above: Performed By: #### TSH #### [facility] [address] [address] [address] Marla Varner URIC ACID SERUMon 07-21-2022 Urate [Mass/Vol] 3.3 mg/dL Normal 2.6-6.0 [facility] Comment on above: Performed By: #### INSULT #### [facility] [address] [place] [address] Dr. Marla Varner CBC AUTO DIFFon 04-21-2022 BASO # 0.0 103/ul Normal 0.0-0.1 [facility] Comment on above: Performed By: #### TSH #### [facility] [address] [place] [address] Dr. Marla Varner Basophils/100 WBC (Bld) 0.1 % Critically low 0.2-2.0 [facility] Comment on above: Performed By: #### TSH #### [facility] [address] [place] [address] Dr. Marla Varner EO # 0.4 103/ul Normal 0.0-0.7 [facility] Comment on above: Performed By: #### TSH #### [facility] [address] [place] [address] Dr. Marla Varner Eosinophils/100 WBC (Bld) 5.1 % Normal 0.9-7.0 [facility] Comment on above: Performed By: #### TSH #### [facility] [address] [place] [address] Dr. Marla Varner Erythrocyte distribution width (RBC) [Ratio] 14.5 % Normal 11.0-15.0 [facility] Comment on above: Performed By: #### TSH #### [facility] [address] [place] [address] Dr. Marla Varner Hematocrit (Bld) [Volume fraction] 45.7 % Normal 36.0-48.0 [facility] Comment on above: Performed By: #### TSH #### [facility] [address] [place] [address] Dr. Marla Varner Hemoglobin (Bld) [Mass/Vol] 14.6 g/dL Normal 12.0-16.0 [facility] Comment on above: Performed By: #### TSH #### [facility] [address] [place], [place] [id number] Dr. Marla Varner IG # 0.03 10e3/ul Normal 0.00-0.03 [facility] Comment on above: Performed By: #### TSH #### [facility] [address] [place] [address] Dr. Marla Varner IG % 0.4 % Normal 0.0-0.5 [facility] Comment on above: Performed By: #### TSH #### [facility] [address] [place] [address] Dr. Marla Varner LYMPH # 0.9 103/ul Critically low 1.2-3.8 [facility] Comment on above: Performed By: #### TSH #### [facility] [address] [place] [address] Dr. Marla Varner Lymphocytes/100 WBC (Bld) 11.3 % Critically low 20.5-60.0 [facility] Comment on above: Performed By: #### TSH #### [facility] [address] [place] [address] Dr. Marla Varner MANUAL DIFF REQ NO Normal [facility] Comment on above: Performed By: #### TSH #### [facility] [address] [place] [address] Dr. Marla Varner MCH (RBC) [Entitic mass] 33.4 pg Normal 26.7-34.0 [facility] Comment on above: Performed By: #### TSH #### [facility] [address] [place] [address] Dr. Marla Varner MCHC (RBC) [Mass/Vol] 31.9 g/dL Normal 29.9-35.2 [facility] Comment on above: Performed By: #### TSH #### [facility] [address] [place] [address] Dr. Marla Varner MCV (RBC) [Entitic vol] 104.6 fL Critically high 81.0-99.0 [facility] Comment on above: Performed By: #### TSH #### [facility] [address] [place] [address] Dr. Marla Varner MONO # 0.3 103/ul Normal 0.3-0.8 [facility] Comment on above: Performed By: #### TSH #### [facility] [address] [place] [address] Dr. Marla Varner Monocytes/100 WBC (Bld) 3.9 % Normal 1.7-12.0 [facility] Comment on above: Performed By: #### TSH #### [facility] [address] [place] [address] Dr. Marla Varner NEUT # 6.1 103/ul Normal 1.4-6.5 [facility] Comment on above: Performed By: #### TSH #### [facility] [address] [place] [address] Dr. Marla Varner Neutrophils/100 WBC (Bld) 79.2 % Critically high 43.0-75.0 [facility] Comment on above: Performed By: #### TSH #### [facility] [address] [place] [address] Dr. Marla Varner Platelet mean volume (Bld) [Entitic vol] 10.4 fL Normal 9.5-13.5 [facility] Comment on above: Performed By: #### TSH #### [facility] [address] [place] [address] Dr. Marla Varner PLT 195 103/ul Normal 150-450 [facility] Comment on above: Performed By: #### TSH #### [facility] [address] [place] [address] Dr. Marla Varner RBC 4.37 106/ul Normal 4.20-5.40 [facility] Comment on above: Performed By: #### TSH #### [facility] [address] [place] [address] Dr. Marla Varner WBC 7.7 103/ul Normal 4.0-11.0 [facility] Comment on above: Performed By: #### TSH #### [facility] [address] [place] [address] Dr. Marla Varner PROF 14(COMP METB)on 022 Albumin [Mass/Vol] 3.3 g/dL Critically low 3.4-5.0 [facility] Comment on above: Performed By: #### URIC, CMP #### [facility] [address] [address] [address] Marla Varner Albumin/Globulin [Mass ratio] 0.8 {ratio} Normal [facility] Comment on above: Performed By: #### URIC, CMP #### [facility] [address] [address] [address] Marla Varner ALP [Catalytic activity/Vol] 97 U/L Normal 46-116 [facility] Comment on above: Performed By: #### URIC, CMP #### [facility] [address] [address] [address] Marla Varner ALT [Catalytic activity/Vol] 26 U/L Normal 14-59 [facility] Comment on above: Performed By: #### URIC, CMP #### [facility] [address] [place] [address] Dr. Marla Varner Anion gap [Moles/Vol] 18.0 mmol/L Normal [facility] Comment on above: Performed By: #### URIC, CMP #### [facility] [address] [place] [address] Dr. Marla Varner AST [Catalytic activity/Vol] 17 U/L Normal 15-37 [facility] Comment on above: Performed By: #### URIC, CMP #### [facility] [address] [place] [address] Dr. Marla Varner Bilirubin [Mass/Vol] 0.5 mg/dL Normal 0.2-1.0 [facility] Comment on above: Performed By: #### URIC, CMP #### [facility] [address] [place] [address] Dr. Marla Varner Calcium [Mass/Vol] 8.8 mg/dL Normal 8.5-10.1 [facility] Comment on above: Performed By: #### URIC, CMP #### [facility] [address] [place] [address] Dr. Marla Varner Chloride [Moles/Vol] 100 mmol/L Normal 98-107 [facility] Comment on above: Performed By: #### URIC, CMP #### [facility] [address] [address] [address] Marla Varner CO2 [Moles/Vol] 25.3 mmol/L Normal 21.0-32.0 [facility] Comment on above: Performed By: #### URIC, CMP #### [facility] [address] [address] [address] Marla Varner Creatinine [Mass/Vol] 0.95 mg/dL Normal 0.55-1.02 [facility] Comment on above: Performed By: #### URIC, CMP #### [facility] [address] [address] [address] Marla Varner EGFR-AF ANGUILLAN >60 Normal >=60 [facility] Comment on above: Performed By: #### URIC, CMP #### [facility] [address] [address] [address] Marla Varner EGFR-NON AF ANGUILLAN 58 mL/min/1.73m2 Critically low >=60 [facility] Comment on above: Performed By: #### URIC, CMP #### [facility] [address] [address] [address] Marla Varner Globulin (S) [Mass/Vol] 3.9 g/dL Normal [facility] Comment on above: Performed By: #### URIC, CMP #### [facility] [address] [address] [address] Marla Varner Glucose [Mass/Vol] 253 mg/dL Critically high 74-106 [facility] Comment on above: Performed By: #### URIC, CMP #### [facility] [address] [address] [address] Marla Varner Potassium [Moles/Vol] 4.3 mmol/L Normal 3.5-5.1 [facility] Comment on above: Performed By: #### URIC, CMP #### [facility] [address] [address] [address] Marla Varner Protein [Mass/Vol] 7.2 g/dL Normal 6.4-8.2 [facility] Comment on above: Performed By: #### URIC, CMP #### [facility] [address] [address] [address] Marla Varner Sodium [Moles/Vol] 139 mmol/L Normal 136-145 [facility] Comment on above: Performed By: #### URIC, CMP #### [facility] [address] [address] [address] Marla Varner Urea nitrogen [Mass/Vol] 13.0 mg/dL Normal 7.0-18.0 [facility] Comment on above: Performed By: #### URIC, CMP #### [facility] [address] [address] [address] Marla Varner Urea nitrogen/Creatin ine [Mass ratio] 13.6 mg/mg Normal [facility] Comment on above: Performed By: #### URIC, CMP #### [facility] [address] [address] [address] Marla Var[facility] 35 mm/hr Critically high <=30 [facility] Comment on above: Performed By: #### TSH #### [facility] [address] [place] [address] Dr. Marla Varner URIC ACID SERUMon 04-21-2022 Urate [Mass/Vol] 3.6 mg/dL Normal 2.6-6.0 [facility] Comment on above: Performed By: #### URIC, CMP #### [facility] [address] [place] [address] Dr. Marla Varner XR DEXA BONE DENSITYon [...] by: KALEIGH SUTHERLAND Date: 2022-01-19 11:23 Normal [facility] CNOVSPon 10-21-2018 CNOVSP Visit (SP) Office (GYNOSA) -------EUNICE CASTILLO ([id number]) 1950 FDate Time Provider Department10/21/18 10:40 AM [...] this office note were sent to:[place] [id number]?CC:Yimi Montemayor DO (PCP)Referring Provider: BLAINE THOMPSON [[id number]]Allergies As of Date: 10/21/2018 Noted Allergy ReactionPENICILLINS [...] Status:Closed by BLAINE THOMPSON MD on 10/23/18 [facility] PROGRESSon 10-21-2018 Protein mass conc HNO ID: [id number]: Blaine Maldonadoervice: (none)Author Type: PhysicianType: Progress NotesFiled: [...] this office note were sent to:[place] [id number]?CC:Yimi Montemayor, (PCP) Normal [facility] CNOVon 04-15-2018 CNOV Office Visit (GYNOSA) -------EUNICE CASTILLO ([id number]) 1950 FDate Time Provider Department04/15/18 8:00 AM [...] I advised her to follow with her respiratory practitioner for routine health and gynmaintenance exams3. I will see her in 6 monthsBlaine Thompson MD, MPH25 min spent with the patient with >50% face to face counselingA letter and a copy of this office note were sent to:[place] [id number]?CC:Yimi Montemayor DO (PCP)Referring Provider: BLAINE THOMPSON [[id number]]Allergies As of Date: 04/15/2018 Noted Allergy ReactionPENICILLINS [...] by BLAINE THOMPSON MD on 04/15/18 Normal [facility] PROGRESSon 04-15-2018 Protein mass conc HNO ID: [id number]: Blaine Maldonadoervice: (none)Author Type: PhysicianType: Progress NotesFiled: 04/15/2018 8:25 AMNote Text:DATE OF SERVICE: April 15, 2018PROBLEM: Eunice Cabrera Anna presents for follow up.SURGERY AND DATE: 10/29/2016Modified [...] I advised her to follow with her respiratory practitioner for routine health andgyn maintenance exams3. I will see her in 6 monthsBlaine Thompson MD, MPH25 min spent with the patient with >50% face to face counselingA letter and a copy of this office note were sent to:[place] [phone]?CC:Yimi Montemayor DO (PCP) Normal [facility] Vital Signs Date Time Vital Sign Value Performing Clinician Faci lity 06-12-2024 09:17-0400 Body mass index (BMI) [Ratio] 41.76 kg/m2 Brunilda Rose NP Work Phone: [facility] 06-12-2024 09:17-0400 Body temperature 97.3 [degF] Brunilda Rose NP Work Phone: [facility] 06-12-2024 09:17-0400 Body weight 110.36 kg Brunilda Rose BEHAVIORAL ANALYST Work Phone: [facility] 06-12-2024 09:17-0400 Diastolic blood pressure 75 mm[Hg] Brunilda Goodrichz BEHAVIORAL ANALYST Work Phone: [facility] 06-12-2024 09:17-0400 Heart rate 79 /min Brunilda Rose BEHAVIORAL ANALYST Work Phone: [facility] 06-12-2024 09:17-0400 SaO2% (BldA) [Mass fraction] 94 % Brunilda Goodrichz BEHAVIORAL ANALYST Work Phone: [facility] 06-12-2024 09:17-0400 Systolic blood pressure 131 mm[Hg] Brunilda Goodrichz BEHAVIORAL ANALYST Work Phone: [facility] Healthcare Encounters Encounter Date Encounter Type Care Provider Facility Start: 06-22-2024 End: 06-22-2024 Clinisync Result Encounter Brunilda Rose BEHAVIORAL ANALYST Work Phone: [facility] External Department Unsolicited Start: 06-22-2024 End: 06-22-2024 Clinisync Result Encounter Brunilda Rose BEHAVIORAL ANALYST Work Phone: [facility] External Department Unsolicited Start: 06-12-2024 End: 06-12-2024 Bamboo flowsheet Brunilda Chavarriating BEHAVIORAL ANALYST Work Phone: [facility] Start: 06-12-2024 End: 06-12-2024 Bamboo flowsheet Brunilda Goodrichcoretta BEHAVIORAL ANALYST Work Phone: [facility] Start: 06-12-2024 End: 06-12-2024 Office outpatient visit 25 minutes Brunilda Chavarriating BEHAVIORAL ANALYST Work Phone: [facility] Comment on above: Primary hypertension (CMS/HCC) (Primary Dx); Morbid (severe) obesity due to excess calories (CMS/HCC); Body mass index (BMI) 40.0-44.9, adult (CMS/HCC); Malignant neoplasm of vagina (CMS/HCC); Gastroesophageal reflux disease without esophagitis; Lower extremity edema; Hypothyroidism, unspecified type (CMS/HCC); Tobacco user; Hyperglycemia; Polyneuropathy; Rheumatoid arthritis with positive rheumatoid factor, involving unspecified site (CMS/HCC); Other fatigue Start: 06-12-2024 End: 06-12-2024 ambulatory BRUNILDA ERVINFouziaHOLZ Not Available Start: 12-13-2023 Patient encounter procedure Brunilda Milton BEHAVIORAL ANALYST Work Phone: [facility] Start: 12-13-2023 End: 12-13-2023 ambulatory BRUNILDA AICFouziaHOLZ Not Available Start: 10-13-2023 Telephone encounter Zohra Gregorio [facility] Medical [facility] Start: 01-12-2023 End: 01-13-2023 ambulatory SAMPLER OVENS BRUNILDA AICHHOLZ Facility:[facility] Start: 10-13-2022 End: 10-14-2022 ambulatory SAMPLER OVENS BRUNILDA AICFouziaHOLZ Facility:[facility] Start: 07-21-2022 End: 07-22-2022 ambulatory SAMPLER OVENS BRUNILDA AICHHOLZ Facility:[facility] Start: 04-21-2022 End: 04-22-[address] DOCTOR THORNTON Facility:[facility] Start: 01-19-2022 End: 01-20-2022 ambulatory [employer] BRUNILDA AICFouziaHOLZ Facility:[facility] Start: 10-21-2018 End: 10-26-2018 Patient encounter procedure BLAINE [facility] Start: 04-15-2018 End: 04-15-2018 Patient encounter procedure [facility] Procedures Date Procedure Procedure Detail Performing Clinician Start: 06-22-2024 MLR HEMOGLOBIN A1C Brunilda Milton BEHAVIORAL ANALYST Work Phone: Start: 06-14-2023 Mammography Brunilda hopkins BEHAVIORAL ANALYST Work Phone: Plan of Treatment Date Care Activity Detail Author Start: 12-13-2024 Medicare Annual Well ness (AWV) Medicare Annual Wellness (AWV) [facility] Start: 12-13-2024 Screening for malign ant neoplasm of colon Colorectal Cancer Screening [facility] Comment on above: Postponed from 09/25 (Patient Refused) Start: 12-12-2024 End: 12-12-2024 Patient encounter procedure 12/12/2024 10:00 AM EST Office Visit [facility] [address] [place] [address] Brunilda Rose, RHEA [address] [place] [id number] [facility] Start: 06-19-2024 Glaucoma screening Diabetes: R etinopathy Screening [facility] Comment on above: Postponed from 09/25 (Other Medical Reasons) Start: 06-19-2024 Urine screening for protein Diabetes: Urine Protein Screening [facility] Comment on above: Postponed from 09/25 (Other Patient Reasons) Start: 06-18-2024 Influenza vaccination Influenza Vacc ine (#1) [facility] Start: 06-14-2024 Screening for malign ant neoplasm of breast Mammogram [facility] Start: 06-12-2024 End: 06-12-2024 Patient encounter procedure 06/12/2024 9:20 AM EDT Office Visit [facility] [address] [place] [address] Brunilda Rose, RHEA [address] [place] [id number] Morbid (severe) obesity due to excess calories (CMS/HCC); Body mass index (BMI) 40.0-44.9, adult (CMS/HCC); Malignant neoplasm of vagina (CMS/HCC) [facility] Comment on above: Morbid (severe) obes ity due to excess calories (CMS/HCC); Body mass index (BMI) 40.0-44.9, adult (CMS/HCC); Malignant neoplasm of vagina (CMS/HCC) Start: 10-21-2023 Adult BMI Screening Adult BMI Screen ing [facility] Start: 06-18-2023 COVID-19 Vaccine ( season) COVID-19 Vaccine () [facility] Start: 06-18-2023 Influenza vaccination Influenza Vacc ine [facility] Start: 2015 Fall Risk Screening Fall Risk Screen ing [facility] Start: 2000 Administration of varicella zoster vaccine Zoster (Shingles) Vaccine (1 of 2) [facility] Start: 1969 DTaP,Tdap and Td Vac cines (1 - Tdap) DTaP,Tdap and Td Vaccines (1 - Tdap) [facility] Start: 1968 Adult BMI Follow Up Plan Adult BMI Follow Up Plan [facility] Start: 1962 Depression Screening Depression Scre ening [facility] Start: 1962 Tobacco Screening Tobacco Screening [facility] Start: 1950 Hemoglobin A1c measurement Diabetes: Hemoglobin A1C [facility] Start: 1950 Medicare Annual Well ness Visit Medicare Annual Wellness Visit [facility] Start: 1950 Screening for malign ant neoplasm of colon [facility] Immunizations Immunization Date Immunization Notes Care Provider [facility] 07-30-2023 Influenza, Seasonal, Quadrivalent, Adjuvanted Brunilda Aichholz BEHAVIORAL ANALYST Work Phone: [facility] 07-30-2023 SARS-COV-2 (COVID-19 ) vaccine, mRNA, spike protein, LNP, PF, india-sucrose, 30 mcg/0.3 mL Brunilda Aichholz BEHAVIORAL ANALYST Work Phone: [facility] 07-30-2023 influenza virus vacc ine, unspecified formulation Brunilda Aichholz BEHAVIORAL ANALYST Work Phone: [facility] 08-11-2022 Influenza, Seasonal, Quadrivalent, Adjuvanted Brunilda Aichholz BEHAVIORAL ANALYST Work Phone: [facility] 08-11-2022 SARS-COV-2 (COVID-19 ) vaccine, mRNA, spike protein, LNP, bivalent, preservative free, 30 mcg/0.3 mL dose, india-sucrose formulation Brunilda Aichholz BEHAVIORAL ANALYST Work Phone: [facility] 08-11-2022 influenza virus vacc ine, unspecified formulation Zohra Oates [facility] 09-10-2021 Pfizer Purple Cap SARS-CoV-2 Vaccination Brunilda Aichholz BEHAVIORAL ANALYST Work Phone: [facility] 08-28-2021 pneumococcal polysaccharide vaccine, 23 valent Brunilda Aichholz BEHAVIORAL ANALYST Work Phone: [facility] 08-26-2021 Influenza, Seasonal, Quadrivalent, Adjuvanted Brunilda Aichholz BEHAVIORAL ANALYST Work Phone: [facility] 01-07-2021 Pfizer Purple Cap SARS-CoV-2 Vaccination Brunilda Aichholz BEHAVIORAL ANALYST Work Phone: [facility] 12-17-2020 Pfizer Purple Cap SARS-CoV-2 Vaccination Brunilda Aichholz BEHAVIORAL ANALYST Work Phone: [facility] 08-27-2020 Influenza, Seasonal, Quadrivalent, Adjuvanted Brunilda Aichholz BEHAVIORAL ANALYST Work Phone: [facility] 08-27-2020 pneumococcal conjuga te vaccine, 13 valent Brunilda Aichholz BEHAVIORAL ANALYST Work Phone: [facility] Payers Date Payer Category Payer Medicare [id number] 2015 Unknown [id number] 1959 Medicare [id number] 1959 Unknown [id number] 1950 Unknown [id number] 2.16.84 [id number] 1950 Unknown [id number] 2.16.84 [id number] 1950 Unknown [id number] 2.16.84 [id number] 1950 Unknown [id number] 2.16.84 [id number] 1950 Unknown [id number] 2.16.84 [id number] 1950 Unknown [id number] 2.16.84 [id number] 1950 Unknown [id number] 2.16.84 [id number] 1950 Unknown [id number] 2.16.84 [id number] 1950 Unknown [id number] 2.16.84 [id number] Social History Date Type Detail Facility Start: 10-31-2019 End: 12-06-2023 Tobacco smoking status [facility] Smokes tobacco daily [facility] History of tobacco use Cigarette Smoker P [facility] Start: 10-31-2019 End: 12-13-2023 Cigarettes smoked current (pack per day) - Reported 1 [facility] Start: 10-31-2019 Tobacco use and exposure Smokeless tobacco non-user [facility] Start: 11-13-2020 End: 06-12-2024 Alcohol intake Lifetime non-drinker (finding) [facility] Start: 08-16-2019 End: 12-13-2023 Alcohol Use Disorder Identification Test - Consumption [AUDIT-C] [facility] Healthcare Frequency of Alcohol Consumption Never [facility] Start: 1950 Sex Assigned At Not on file [facility] Within the last year , have you been afraid of your partner or ex-partner? No [facility] Do you belong to any clubs or organizations such as jew groups, unions, fraternal or athletic groups, or school groups? Yes [facility] Are you now , , , , never or living with a partner? [facility] How often to you hav e a drink containing alcohol? Never [facility] Do you feel stress - tense, restless, nervous, or anxious, or unable to sleep at night because your mind is troubled all the time - these days [OSQ] Only a little [facility] (I/We) worried wheth er (my/our) food would run out before (I/we) got money to buy more. Never true [facility] Start: 12-13-2023 Alcohol Comment caffine: 4 cups daily [facility] History of Present illness Narrative 06-12-2024 Brunilda Rose NP - 06/12/2024 11:27 AM Isa Rose NP - 06/12/2024 11:23 AM Isa Rose NP - 06/12/2024 11:21 AM Isa Rose NP - 06/12/2024 11:21 AM EDT Note Date & Type Note Facility 06-12-2024 History of Presen t illness Narrative Associated Problem(s): Fatigue For the last year or so pt has reported increase in feeling fatigued. We have discussed this again today. Usually after doing activity she can feel tired and drained, will go rest for a while and then like she resets herself then is better Her labs do not indicate any anemia, she does have an elevated glucose which likely is related to untreated DM, she had an A1c test ordered in 12/11, she did not get that done. We also spoke about possibly fatigue related to ROSIBEL At this point she will consider A1c test and go from there Associated Problem(s): Hypothyroid (CMS/HCC) Fatigue, takes thyroid meds daily as directed Associated Problem(s): HTN (hypertension) (CMS/HCC) Stable at this time No med dose change Associated Problem(s): Polyneuropathy Would like to increase gabapentin to 300mg BID Images from the original note were not included. Eunice Castillo is a 73 y.o. female presents with chief complaint of No chief complaint on file. HPI: Thyroid Problem Presents for follow-up visit. Symptoms include fatigue. Patient reports no anxiety, constipation, diarrhea, heat intolerance, hoarse voice, menstrual problem, palpitations, tremors, visual change, weight gain or weight loss. The symptoms have been stable. Fatigue This is a chronic problem. The current episode started more than 1 year ago. The problem occurs daily. The problem has been waxing and waning. Associated symptoms include arthralgias, coughing, fatigue and myalgias. Pertinent negatives include no abdominal pain, chest pain, chills, congestion, fever, headaches, joint swelling, nausea, numbness, rash, sore throat, swollen glands, urinary symptoms, vertigo, visual change or vomiting. She has tried nothing for the symptoms. The treatment provided no relief. Hypertension This is a chronic problem. The current episode started more than 1 year ago. The problem is unchanged. The problem is controlled. Pertinent negatives include no chest pain, headaches, palpitations, peripheral edema or shortness of breath. There are no associated agents to hypertension. Risk factors for coronary artery disease include obesity, sedentary lifestyle, smoking/tobacco exposure and post-menopausal state. Past treatments include NICK inhibitors. The current treatment provides significant improvement. There are no compliance problems. Identifiable causes of hypertension include a thyroid problem. SUBJECTIVE: MEDICATIONS: Current Outpatient Medications Medication Instructions adalimumab (HUMIRA) 40 mg, Subcutaneous, Every 14 days allopurinol (Zyloprim) 300 MG tablet 1 tablet, Oral, Daily cetirizine (ZYRTEC) 10 mg, Oral, Daily RT colchicine 0.6 mg, Oral, As directed fiber 625 mg, Oral, Daily RT folic acid (Folvite) 1 MG tablet 1 tablet, Oral, Daily furosemide (LASIX) 40 mg, Oral, Daily gabapentin (NEURONTIN) 300 mg, Oral, Nightly gabapentin (NEURONTIN) 100 mg, Oral, Every morning levothyroxine (SYNTHROID, LEVOXYL) 150 mcg, Oral, Daily before breakfast lisinopril 10 mg, Oral, Daily methotrexate 2.5 MG tablet 10 tablets, Oral, Weekly Multiple Vitamin (Multi-Vitamin) tablet 1 tablet, Oral, Daily RT omeprazole (PRILOSEC) 20 mg, Oral, 2 times daily before meals potassium chloride CR (Klor-Con) 10 MEQ ER tablet 2 pills twice a day predniSONE (Deltasone) 5 MG tablet 1.5 tablets, Oral, Daily ALLERGIES: Allergies Allergen Reactions Feldene [Piroxicam] Swelling Penicillins Unknown REVIEW OF SYMPTOMS: Review of Systems Constitutional: Positive for fatigue. Negative for appetite change, chills, fever, weight gain and weight loss. HENT: Negative for congestion, ear pain, hoarse voice and sore throat. Eyes: Negative for pain, discharge, redness and visual disturbance. Respiratory: Positive for cough. Negative for shortness of breath and wheezing. Cardiovascular: Negative for chest pain, palpitations and leg swelling. Gastrointestinal: Negative for abdominal pain, blood in stool, constipation, diarrhea, nausea and vomiting. Genitourinary: Negative for difficulty urinating, dysuria, frequency and menstrual problem. Musculoskeletal: Positive for arthralgias and myalgias. Negative for back pain and joint swelling. Skin: Negative for rash and wound. Neurological: Negative for dizziness, vertigo, tremors, seizures, syncope, numbness and headaches. Psychiatric/Behavioral: Negative for behavioral problems, self-injury and suicidal ideas. The patient is not nervous/anxious. Hematological: Does not bruise/bleed easily. Endocrine: Negative for heat intolerance, polydipsia, polyphagia and polyuria. Allergic/Immunologic: Negative for environmental allergies and food allergies. PAST MEDICAL HISTORY Past Medical History: Diagnosis Date Abdominal pain, generalized 12/13/2023 Allergic rhinitis 12/13/2023 Broken tooth Endometriosis Fatigue 12/13/2023 Gout 12/13/2023 H/O degenerative disc disease 12/13/2023 Heel spur, left 12/13/2023 HTN (hypertension) ([facility]) 12/13/2023 Hyperglycemia 12/13/2023 Hypothyroid ([facility]) 12/13/2023 Lower extremity edema 12/13/2023 Morbid obesity with body mass index (BMI) of 40.0 to 49.9 ([facility]) 12/13/2023 Non-compliant patient 12/13/2023 Osteoarthritis 12/13/2023 Osteoporosis ([facility]) 12/13/2023 Polyneuropathy 12/13/2023 RA (rheumatoid arthritis) ([facility]) 12/13/2023 Tobacco user 12/13/2023 Vaginal cancer ([facility]) 12/13/2023 Vitamin B12 deficiency 12/13/2023 Past Surgical History: Procedure Laterality Date HYSTERECTOMY RADICAL VULVECTOMY 10/29/2016 modified radical posterior vulvectomy: 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 OBJECTIVE: Visit Vitals BP 131/75 Pulse 79 Temp 97.3 F Wt 243 lb 4.8 oz SpO2 94% BMI 41.76 kg/m Smoking Status Every Day BSA 2.23 m Physical Exam Vitals and nursing note reviewed. Constitutional: General: She is not in acute distress. Appearance: Normal appearance. HENT: Head: Normocephalic and atraumatic. Right Ear: External ear normal. Left Ear: External ear normal. Nose: Nose normal. Mouth/Throat: Mouth: Mucous membranes are moist. Eyes: Extraocular Movements: Extraocular movements intact. Conjunctiva/sclera: Conjunctivae normal. Neck: Vascular: No carotid bruit. Cardiovascular: Rate and Rhythm: Normal rate and regular rhythm. Pulses: Normal pulses. Heart sounds: Normal heart sounds. Pulmonary: Effort: Pulmonary effort is normal. Breath sounds: Normal breath sounds. Abdominal: General: Bowel sounds are normal. There is no distension. Palpations: Abdomen is soft. There is no mass. Tenderness: There is no abdominal tenderness. Musculoskeletal: General: Normal range of motion. Cervical back: Normal range of motion and neck supple. Right lower leg: No edema. Left lower leg: No edema. Lymphadenopathy: Cervical: No cervical adenopathy. Skin: General: Skin is warm and dry. Capillary Refill: Capillary refill takes 2 to 3 seconds. Findings: No rash. Neurological: General: No focal deficit present. Mental Status: She is alert and oriented to person, place, and time. Psychiatric: Mood and Affect: Mood normal. Behavior: Behavior normal. Thought Content: Thought content normal. Judgment: Judgment normal. ASSESSMENT AND PLAN: No follow-ups on file. Problem List Items Addressed This Visit Body mass index (BMI) 40.0-44.9, adult (CMS/HCC) Gastroesophageal reflux disease without esophagitis Polyneuropathy Would like to increase gabapentin to 300mg BID Relevant Medications gabapentin (Neurontin) 300 MG capsule HTN (hypertension) (CMS/HCC) - Primary Stable at this time No med dose change Relevant Medications lisinopril 10 MG tablet Malignant neoplasm of vagina (CMS/HCC) Continue with Full Stack Software Developer/Onc Lower extremity edema Relevant Medications potassium chloride CR (Klor-Con) 10 MEQ ER tablet furosemide (Lasix) 40 MG tablet Morbid (severe) obesity due to excess calories (CMS/HCC) Hypothyroid (CMS/HCC) Fatigue, takes thyroid meds daily as directed Relevant Medications levothyroxine (Synthroid, Levoxyl) 150 MCG tablet Tobacco user RA (rheumatoid arthritis) (CMS/HCC) Relevant Medications folic acid (Folvite) 1 MG tablet Hyperglycemia Fatigue For the last year or so pt has reported increase in feeling fatigued. We have discussed this again today. Usually after doing activity she can feel tired and drained, will go rest for a while and then like she resets herself then is better Her labs do not indicate any anemia, she does have an elevated glucose which likely is related to untreated DM, she had an A1c test ordered in 12/11, she did not get that done. We also spoke about possibly fatigue related to ROSIBEL At this point she will consider A1c test and go from there Associated Problem(s): Malignant neoplasm of vagina (CMS/HCC) Continue with Full Stack Software Developer/Onc documented in this encounter [facility] Note 10-13-2023 Telephone Encounter - Zohra Oates - 10/13/2023 2:33 PM EST Note Date & Type Note Facility 10-13-2023 Miscellaneous Notes Formattin g of this note might be different from the original. CALLED TO CANCEL FOLLOW UP WITH ANTONIETTA SHE DOES NOT WANT TO RESCHEDULE AT THIS TIME documented in this encounter [facility] Telephone encounter Note 10-13-2023 Telephone Encounter - Zohra Oates - 10/13/2023 2:33 PM EST Note Date & Type Note Facility 10-13-2023 Telephone encount er Note CALLED TO CANCEL FOLLOW UP WITH ANTONIETTA SHE DOES NOT WANT TO RESCHEDULE AT THIS TIME [facility] Evaluation note Note Date & Type Note Facility Evaluation note Diagnosis Primary hypertension (CMS/HCC)- Primary Unspecified essential hypertension Morbid (severe) obesity due to excess calories (CMS/HCC) Body mass index (BMI) 40.0-44.9, adult (CMS/HCC) Malignant neoplasm of vagina (CMS/HCC) Malignant neoplasm of vagina Gastroesophageal reflux disease without esophagitis Esophageal reflux Lower extremity edema Edema Hypothyroidism, unspecified type (CMS/HCC) Tobacco user Tobacco use disorder Hyperglycemia Other abnormal glucose Polyneuropathy Unspecified hereditary and idiopathic peripheral neuropathy Rheumatoid arthritis with positive rheumatoid factor, involving unspecified site (CMS/HCC) Other fatigue documented in this encounter [facility] Instructions Note Date & Type Note Facility [...] section and content) DATE CREATED AUTHOR 10/27/2018 [facility] DATE CREATED AUTHOR AUTHOR'S ORGANIZ ATION 01/15/2023 [facility] DATE CREATED AUTHOR AUTHOR'S ORGANIZ ATION 06/13/2024 [facility] [employer] Care Teams (unrecognized sec tion and content) Broom Worker Relationship Specialty Start Date End Date Brunilda Rose, [employer] [address] [place] [phone] PCP - General Nurse Practitioner 08/16/19 [employer]room Worker Relationship Specialty Start Date End Date Jerry Shah MD [address] [place] [phone] PCP - General Family Medicine 12/06/23 Brunilda Rose NP [address] [place] [phone] Nurse Practitioner Family Medicine 10/18/22 Broom Worker Relationship Specialty Start Date End Date Jerry Shah MD [address] [place] [phone] PCP - General Family Medicine 12/06/23 Brunilda Rose NP [address] [place] [phone] Nurse Practitioner Family Medicine 10/18/22 FOR RECORDS PERTAINING TO PATIENTS WHO ARE [...] BE BASED ON THE PRIMARY CLINICAL RECORDS. [facility] [employer] provides no warranty or guarantee of the accuracy or completeness of information in this document.
[2024-10-16 11:57] LABS: Basophils Percent Auto 0.3 % (0.2-2.0); Eosinophils Absolute Auto 0.4 10^3/uL (0.0-0.7); Eosinophils Percent Auto 4.4 % (0.9-7.0); Hematocrit 47.5 % (36.0-48.0); Hemoglobin 15.3 g/dL (12.0-16.0); Immature Granulocytes Abs Auto 0.03 10^3/uL (0.00-0.03); Immature Granulocytes Pct Auto 0.4 % (0.0-0.5); Lymphocytes Absolute Auto 1.3 10^3/uL (1.2-3.8); Lymphocytes Percent Auto 15.8 % (20.5-60.0); Mean Corpuscular HGB Conc 32.2 g/dL (29.9-35.2); Mean Corpuscular Hemoglobin 33.7 pg (26.7-34.0); Mean Corpuscular Volume 104.6 fL (81.0-99.0); Mean Platelet Volume 9.1 fL (9.5-13.5); Monocytes Absolute Auto 0.5 10^3/uL (0.3-0.8); Monocytes Percent Auto 6.4 % (1.7-12.0); Neutrophils Absolute Auto 5.8 10^3/uL (1.4-6.5); Neutrophils Percent Auto 72.7 % (43.0-75.0); Platelet Count 218 10^3/uL (150-450); Red Blood Count 4.54 10^6/uL (4.20-5.40); Red Cell Distribution Width 14.6 % (11.0-15.0)
[2024-10-16 12:09] LABS: Erythrocyte Sedimentation Rate 24 mm/hr (<=30)
[2024-10-16 12:34] LABS: Alanine Aminotransferase 17 U/L (14-59); Albumin Globulin Ratio 0.9; Albumin Level 3.4 g/dL (3.4-5.0); Alkaline Phosphatase 82 U/L (46-116); Anion Gap 12.6; Aspartate Amino Transferase 18 U/L (15-37); BUN Creatinine Ratio 14.5; Bilirubin Total 0.4 mg/dL (0.2-1.0); Calcium 9.5 mg/dL (8.5-10.1); Carbon Dioxide 32.1 mmol/L (21.0-32.0); Chloride 101 mmol/L (98-107); Estimated GFR (African America >60 (>=60 mL/min/1.73m^2); Estimated GFR (Non-African Ame >60 (>=60 mL/min/1.73m^2); Globulin 3.8 g/dL; Glucose 120 mg/dL (74-106); Potassium 4.7 mmol/L (3.5-5.1); Sodium 141 mmol/L (136-145); Total Protein 7.2 g/dL (6.4-8.2); Uric Acid 3.3 mg/dL (2.6-6.0)
== END 2024-10-16 11:38 | disposition home or self-care (01) ==
LOC: LAB 11:38
PROVIDERS: PCP Nurse Practitioner; Visit Provider Internal Medicine Rheumatology
DX: M06.9 Rheumatoid arthritis, unspecified (principal); M19.90 Unspecified osteoarthritis, unspecified site; M10.9 Gout, unspecified; Z51.81 Encounter for therapeutic drug level monitoring
CPT/HCPCS: 36415; 80053; 84550; 85025; 85652

== ENCOUNTER 2025-01-23 14:08 | Outpatient (OUT) | payer MEDICARE, OTHER, SELFPAY ==
[2025-01-23 14:35] LABS: Basophils Percent Auto 0.3 % (0.2-2.0); Eosinophils Absolute Auto 0.5 10^3/uL (0.0-0.7); Eosinophils Percent Auto 6.1 % (0.9-7.0); Hematocrit 46.7 % (36.0-48.0); Immature Granulocytes Abs Auto 0.02 10^3/uL (0.00-0.03); Immature Granulocytes Pct Auto 0.3 % (0.0-0.5); Lymphocytes Absolute Auto 1.9 10^3/uL (1.2-3.8); Mean Corpuscular HGB Conc 32.1 g/dL (29.9-35.2); Mean Corpuscular Hemoglobin 33.6 pg (26.7-34.0); Mean Corpuscular Volume 104.5 fL (81.0-99.0); Monocytes Absolute Auto 0.6 10^3/uL (0.3-0.8); Monocytes Percent Auto 7.5 % (1.7-12.0); Neutrophils Absolute Auto 4.4 10^3/uL (1.4-6.5); Neutrophils Percent Auto 59.8 % (43.0-75.0); Platelet Count 206 10^3/uL (150-450); Red Blood Count 4.47 10^6/uL (4.20-5.40); Red Cell Distribution Width 14.9 % (11.0-15.0); White Blood Count 7.3 10^3/uL (4.0-11.0)
[2025-01-23 15:09] LABS: Alanine Aminotransferase 21 U/L (14-59); Albumin Globulin Ratio 0.8; Albumin Level 3.3 g/dL (3.4-5.0); Alkaline Phosphatase 91 U/L (46-116); Anion Gap 9.2; Aspartate Amino Transferase 19 U/L (15-37); BUN Creatinine Ratio 15.3; Bilirubin Total 0.4 mg/dL (0.2-1.0); Carbon Dioxide 32.3 mmol/L (21.0-32.0); Chloride 101 mmol/L (98-107); Estimated GFR (African America >60 (>=60 mL/min/1.73m^2); Estimated GFR (Non-African Ame >60 (>=60 mL/min/1.73m^2); Globulin 3.9 g/dL; Glucose 102 mg/dL (74-106); Magnesium 1.8 mg/dL (1.8-2.4); Phosphorus 3.7 mg/dL (2.6-4.7); Potassium 4.5 mmol/L (3.5-5.1); Sodium 138 mmol/L (136-145); Total Protein 7.2 g/dL (6.4-8.2); Uric Acid 3.1 mg/dL (2.6-6.0)
[2025-01-23 15:26] LABS: Erythrocyte Sedimentation Rate 40 mm/hr (<=30)
== END 2025-01-23 14:09 | disposition home or self-care (01) ==
LOC: LAB 14:14
PROVIDERS: PCP Nurse Practitioner; Visit Provider Registered Nurse
DX: M05.79 Rheumatoid arthritis with rheumatoid factor of multiple sites without organ or systems involvement (principal); M15.0 Primary generalized (osteo)arthritis; M81.0 Age-related osteoporosis without current pathological fracture; Z79.899 Other long term (current) drug therapy; M10.09 Idiopathic gout, multiple sites
CPT/HCPCS: 36415; 80053; 83735; 84100; 84550; 85025; 85652

== ENCOUNTER 2025-05-16 08:13 | Outpatient (OUT) | payer MEDICARE, OTHER, SELFPAY ==
--- OUTSIDE RECORDS SUMMARY | 2025-05-16 08:33 | XMS_ITS | CCD ---
Author Organization [facility] Care Team Providers Care Estimator Name Role Phone MAHDI, BLAINE Unavailable Unavailable MAHDI, BLAINE Unavailable Unavailable MAHDI, BLAINE Unavailable Unavailable MAHDI, BLAINE Unavailable Unavailable AICHHOLZ, LIME BURNER BRUNILDA Primary Care Unavailable MISC, DOCTOR Attending Unavailable MISC, DR SMITH Consulting Unavailable MISC, DR SMITH Admitting Unavailable AICHHOLZ, LIME BURNER BRUNILDA Consulting Unavailable AICHHOLZ, LIME BURNER BRUNILDA Admitting Unavailable AICHHOLZ, LIME BURNER BRUNILDA Primary Care Unavailable AICHHOLZ, LIME BURNER BRUNILDA Attending Unavailable MISC, DR SMITH Admitting Unavailable AICHHOLZ, LIME BURNER BRUNILDA Primary Care Unavailable MISC, DR SMITH Attending Unavailable MISC, DR SMITH Consulting Unavailable AICHHOLZ, LIME BURNER BRUNILDA Attending Unavailable AICHHOLZ, LIME BURNER BRUNILDA Consulting Unavailable AICHHOLZ, LIME BURNER BRUNILDA Primary Care Unavailable AICHHOLZ, LIME BURNER BRUNILDA Admitting Unavailable AICHHOLZ, LIME BURNER BRUNILDA Primary Care Unavailable MISC, DR SMITH Attending Unavailable MISC, DR SMITH Consulting Unavailable AICHHOLZ, LIME BURNER BRUNILDA Admitting Unavailable AICHHOLZ, LIME BURNER BRUNILDA Primary Care Unavailable THERESA, DR KAPOOR Admitting Unavailable WEST, DR KALEIGH Jameson Consulting Unavailable CARDENAS, DR KAPOOR Attending Unavailable CARDENAS, DR KAPOOR Consulting Unavailable MISC, DR SMITH Attending Unavailable AICHHOLZ, LIME BURNER BRUNILDA Primary Care Unavailable MISC, DR SMITH Consulting Unavailable MISC, DR SMITH Admitting Unavailable [facility] REGIONAL CLINICAL DIRECTOR-LIME BURNER, Brunilda J Primary Care Provider [facility] ASSISTED LIVING HOUSEKEEPER, Brunilda Unavailable Jerry Shah MD Primary Care Provider AICHHOLZ, BRUNILDA Attending Unavailable AICHHOLZ, BRUNILDA Attending Unavailable Allergies Allergy Classification Reported Allergen(s) Allergy Type Date of Onset Reaction(s) Facility (11 sources) Penicillins; Translations: [PENICILLINS] Propensity to adverse reactions to drug (disorder) 6 Rash, Unknown [facility] Repository (10 sources) Piroxicam Drug Allergy 9 [facility] Medications Current Medications Medication Drug Class(es) Dates Sig (Normalized) Sig (Original) acetaminophen 325 mg oral tablet (1 source) Start: 10-30-2016 take 2 tablets by mouth every six hours as needed acetaminophen (TYLENOL) 325 mg tablet Take 650 mg by mouth every 6 (six) hours as needed. 0 10/30/2016 Active 0.8 ml adalimumab 50 mg/ml prefilled syringe (10 sources) Tumor Necrosis Factor Kiya adalimumab (Humira) 40 MG/0.8ML Prefilled Syringe Kit prefilled syringe Inject 40 mg under the skin every 14 (fourteen) days Active adalimumab (HUMI RA) 40 mg/0.8 mL injection Inject 40 mg under the skin Every 14 days. 0 Active alendronic acid 70 mg oral tablet (4 sources) Bisphosphonate Start: 11-28-2024 alendronate (Fosamax) 70 MG tablet Take 70 mg by mouth every 7 (seven) days 11/28/2024 Active allopurinol 300 mg oral tablet (10 sources) Xanthine Oxidase Inhibitor Start: 09-30-2023 take [...] Active calcium polycarbophil 625 mg oral tablet (10 sources) take 1 tablet by mouth in the morning Calcium Polycarbophil (fiber) 625 MG tablet Take 625 mg by mouth in the morning. Active cetirizine hydrochloride 10 mg oral tablet (10 sources) Histamine-1 Receptor Antagonist Start: 12-13-2023 take [...] Active colchicine 0.6 mg oral table t (12 sources) Start: 05-25-2024 colchicine 0.6 MG tablet [...] Active folic acid 1 mg oral tablet (13 sources) Start: 11-28-2024 End: 03-20-2025 take 1 tablet by mouth once daily folic acid (Folvite) 1 MG tablet Indications: Rheumatoid arthritis with rheumatoid factor, unspecified (CMS/HCC) Take 1 tablet (1 mg) by mouth Daily 90 tablet 3 12/20/2024 03/20/2025 Active Start: 09-30-2023 End: 09-10-2024 take 1 tablet by mouth once daily in the morning folic acid (Folvite) 1 MG tablet Indications: Rheumatoid arthritis with positive rheumatoid factor, involving unspecified site (CMS/HCC) Take 1 tablet (1,000 mcg) by mouth Daily Take 1 tablet by mouth in the morning. 90 tablet 3 06/12/2024 09/10/2024 Active furosemide 40 mg oral tablet (14 sources) Loop Diuretic Start: 12-13-2023 End: 03-20-2025 take 1 tablet by mouth once daily furosemide (Lasix) 40 MG tablet Indications: Lower extremity edema Take 1 tablet (40 mg) by mouth Daily 90 tablet 3 12/20/2024 03/20/2025 Active Start: 06-13-2016 take 1 tablet by juarez th once daily furosemide (LASIX) 40 mg tablet Take 40 mg by mouth daily. 0 06/13/2016 Active gabapentin 300 mg oral capsule (18 sources) Anti-epileptic Agent Start: 12-13-2023 End: 03-20-2025 take 1 capsule by mouth in the morning gabapentin (Neurontin) 300 MG capsule Indications: Polyneuropathy Take 1 capsule (300 mg) by mouth in the morning and 1 capsule (300 mg) before bedtime. 180 capsule 3 12/20/2024 03/20/2025 Active Start: 12-13-2023 End: 06-12-2024 take 1 [...] Active levothyroxine sodium 0.15 mg oral tablet (14 sources) l-Thyroxine Start: 12-13-2023 End: 03-20-2025 take 1 tablet by mouth before mealtime levothyroxine (Synthroid, Levoxyl) 150 MCG tablet Indications: Hypothyroidism, unspecified type (CMS/HCC) Take 1 tablet (150 mcg) by mouth in the morning. Take before meals. 90 tablet 3 12/20/2024 03/20/2025 Active Start: 08-04-2019 take 1 tablet by juarez once daily levothyroxine (SYNTHROID, LEVOTHROID) 175 MCG tablet Take 175 mcg by mouth daily. 0 08/04/2019 Active lisinopril 10 mg oral tablet (14 sources) Angiotensin Converting Enzyme Inhibitor Start: 12-13-2023 End: 03-20-2025 take 1 tablet by mouth once daily lisinopril 10 MG tablet Indications: Primary hypertension (CMS/HCC) Take 1 tablet (10 mg) by mouth Daily 90 tablet 3 12/20/2024 03/20/2025 Active take 1 tablet by mouth once [...] 10/30/2016 Active methotrexate 2.5 mg oral tablet (10 sources) Folate Analog Metabolic Inhibitor Start: 09-30-20 23 methotrexate 2.5 MG tablet Take 10 tablets by mouth 1 (one) time per week. 09/30/2023 Active Multiple Vitamin (Multi-Vitamin) tablet (9 sources) take 1 tablet by mouth in the morning Multiple Vitamin (Multi-Vitamin) tablet Take 1 tablet by mouth in the morning. Active multivitamin (THERAGRAN) tablet (1 source) take 1 tablet by mouth once daily multivitamin (THERAGRAN) tablet Take 1 tablet by mouth daily. 0 Active omeprazole 20 mg delayed release oral capsule (12 sources) Proton Pump Inhibitor Start: 12-13-19 24 End: 03-20-20 25 take 1 capsule by mouth before mealtime omeprazole (PriLOSEC) [address] capsule Indications: Gastroesophageal reflux disease without esophagitis Take 1 capsule (20 mg) by mouth in the morning. Take before meals. 90 capsule 3 12/20/2024 03/20/2025 Active take 1 capsule by mouth once oc ly omeprazole (PriLOSEC) 20 mg capsule Take 20 mg by mouth daily. 0 Active potassium chloride 10 meq extended release oral tablet (14 sources) Start: 12-20-2024 potassium chlo ride CR (Klor-Con) 10 MEQ ER tablet Indications: Lower extremity edema 2 pills twice a day 360 tablet 3 12/20/2024 Active Start: 12-20-2024 potassium chlo ride CR (Klor-Con) 10 MEQ ER tablet Indications: Lower extremity edema 2 pills twice a day 360 tablet 3 12/20/2024 Active Start: 12-13-2023 End: 12-20-2024 potassium chloride CR (Klor- Con) 10 MEQ ER tablet Indications: Lower extremity edema 2 pills twice a day2 pills twice a day 360 tablet 3 06/12/2024 12/20/2024 Discontinued (Reorder) Start: 03-30-2017 potassium chlo ride (K-DUR,KLOR-CON) 10 MEQ CR tablet Take 10 mEq by mouth daily. 0 03/30/2017 Active predniSONE 5 mg oral tablet (10 sources) Start: 09-30-2023 take 1.5 tablets by [...] Episodic/Chronic Cancer of other female genital organs (20 sources) Vulval intraepithelial neoplasia grade 3; Translations: [Carcinoma in situ of vulva] Onset: 10-04-2019 10-04-2019 Chronic Esophageal disorders (13 sources) Gastroesophageal reflux disease without esophagitis; Translations: [Gastro-esophageal reflux disease without esophagitis] Onset: 10-06-2016 12-13-2023 Chronic Essential hypertension (13 sources) Hypertensive disorder; Translations: [Essential (primary) hypertension] Onset: 12-13-2023 12-13-2023 Chronic Gout and other crystal arthropathies (20 sources) Idiopathic gout, multiple sites; Translations: [Chronic primary gouty arthritis] Onset: 10-06-2016 12-13-2023 Chronic Osteoarthritis (10 sources) Primary generalized (osteo)arthritis; Translations: [Osteoarthritis] Onset: 01-15-2023 12-13-2023 Chronic Osteoporosis (15 sources) Age-related osteoporosis without current pathological fracture; Translations: [Osteoporosis] Onset: 01-19-2022 Chronic Other aftercare (1 source) Other correction (current) drug therapy; Translations: [[facility] CURRENT DRUG THERAPY] Onset: 01-15-2023 Episodic Other nervous system disorders (13 sources) Polyneuropathy; Translations: [Polyneuropathy, unspecified] Onset: 12-13-2023 12-13-2023 Chronic Other nutritional; endocrine; and metabolic disorders (14 sources) Body mass index 40+ - severely obese; Translations: [Body mass index (BMI) 45.0-49.9, adult] Onset: 09-27-2019 09-27-2019 Chronic Other nutritional; endocrine; and metabolic disorders (13 sources) Obesity caused by energy imbalance; Translations: [Morbid (severe) obesity due to excess calories] Onset: 12-13-2023 06-12-2024 Chronic Other upper respiratory disease (9 sources) Allergic rhinitis; Translations: [Allergic rhinitis, unspecified] Onset: 12-13-2023 12-13-2023 Chronic Rheumatoid arthritis and related disease (20 sources) Rheumatoid arthritis with rheumatoid factor of multiple sites without organ or systems involvement; Translations: [Rheumatoid arthritis] Onset: 10-06-2016 Resolved: 06-12-2024 Chronic Substance-related disorders (15 sources) Smoker; Translations: [Nicotine dependence, unspecified, uncomplicated] Onset: 10-06-2016 Resolved: 12-20-2024 12-13-2023 Chronic Thyroid disorders (17 sources) Hypothyroidism, unspecified; Translations: [Hypothyroidism] Onset: 10-13-2022 Chronic Unclassified (1 source) Unknown / UNK(Unknown) Onset: 04-15-2018 Past or Other Problems Problem Classification Problem Date Documented Date Episodic/Chronic Abdominal pain (9 sources) Generalized abdominal pain; Translations: [Generalized abdominal pain] Onset: 12-13-2023 12-13-2023 Episodic Diabetes mellitus without complication (9 sources) Type 2 diabetes mellitus without complication; Translations: [Type 2 diabetes mellitus without complications] Onset: 11-22-2023 Resolved: 12-13-2023 12-13-2023 Chronic Diabetes mellitus without complication (13 sources) Hyperglycemia; Translations: [Hyperglycemia, unspecified] Onset: 12-13-2023 12-13-2023 Episodic Malaise and fatigue (11 sources) Fatigue; Translations: [Other fatigue] Onset: 12-13-2023 12-13-2023 Episodic Mood disorders (9 sources) Mood disorders Onset: 12-13-2023 Resolved: 12-20-2024 12-13-2023 Nutritional deficiencies (9 sources) Cobalamin deficiency; Translations: [Deficiency of other specified B group vitamins] Onset: 12-13-2023 12-13-2023 Episodic Other connective tissue disease (9 sources) Calcaneal spur of left foot; Translations: [Calcaneal spur, left foot] Onset: 12-13-2023 12-13-2023 Episodic Other connective tissue disease (9 sources) H/O: osteoarthritis; Translations: [Personal history of other diseases of the musculoskeletal system and connective tissue] Onset: 12-13-2023 12-13-2023 Episodic Other non-traumatic joint disorders (9 sources) Pain in left shoulder; Translations: [Pain in joint, shoulder region] Onset: 12-13-2023 12-13-2023 Episodic Other nutritional; endocrine; and metabolic disorders (9 sources) Morbid obesity; Translations: [Morbid (severe) obesity due to excess calories] Onset: 10-06-2016 Resolved: 06-12-2024 06-12-2024 Chronic Residual codes; unclassified (13 sources) Edema of lower extremity; Translations: [Localized edema] Onset: 12-13-2023 12-13-2023 Episodic Residual codes; unclassified (11 sources) Tobacco user; Translations: [Tobacco use] Onset: 12-13-2023 Resolved: 12-20-2024 12-13-2023 Episodic Residual codes; unclassified (9 sources) Noncompliance with treatment; Translations: [Non-compliant patient] Onset: 12-13-2023 12-13-2023 Episodic Results Test Name Value Interpretation Reference Range Facility ALL CBC WITH AUTO DIFFon BASOPHILS ABSOLUTE AUTO 0 [facility] Basophils/100 WBC (Bld) 0.3 % 0.2 - 2.0 % [facility] Eosinophils/100 WBC (Bld) 6.1 % 0.9 - 7.0 % [facility] Erythrocyte distribution width (RBC) [Ratio] 14.9 % 11.0 - 15.0 % [facility] Hematocrit (Bld) [Volume fraction] 46.7 % 36.0 - 48.0 % [facility] Hemoglobin (Bld) [Mass/Vol] 15 g/dL 12.0 - 16.0 g/dL [facility] IMMATURE GRANULOCYTES ABS AUTO 0.02 [facility] Immature granulocytes/100 WBC (Bld) 0.3 % 0.0 - 0.5 % [facility] Interpretation and review of laboratory results Abnormal [facility] LYMPHOCYTES ABSOLUTE AUTO 1.9 [facility] Lymphocytes/100 WBC (Bld) 26 % 20.5 - 60.0 % [facility] MCH (RBC) [Entitic mass] 33.6 pg 26.7 - 34.0 pg [facility] MCHC (RBC) [Mass/Vol] 32.1 g/dL 29.9 - 35.2 g/dL [facility] MCV (RBC) [Entitic vol] 104.5 fL High 81.0 - 99.0 fL [facility] MONOCYTES ABSOLUTE AUTO 0.6 [facility] Monocytes/100 WBC (Bld) 7.5 % 1.7 - 12.0 % [facility] NEUTROPHILS ABSOLUTE AUTO 4.4 [facility] Neutrophils/100 WBC (Bld) 59.8 % 43.0 - 75.0 % [facility] Platelet mean volume (Bld) [Entitic vol] 9 fL Low 9.5 - 13.5 fL [facility] TBH EO # 0.5 [facility] TBH PLT 206 [facility] TB RBC 4.47 [facility] WBC 7.3 [facility] ALL CBC WITH AUTO DIFFon BASOPHILS ABSOLUTE AUTO 0 [facility] Basophils/100 WBC (Bld) 0.3 % 0.2 - 2.0 % [facility] Eosinophils/100 WBC (Bld) 4.4 % 0.9 - 7.0 % [facility] Erythrocyte distribution width (RBC) [Ratio] 14.6 % 11.0 - 15.0 % [facility] Hematocrit (Bld) [Volume fraction] 47.5 % 36.0 - 48.0 % [facility] Hemoglobin (Bld) [Mass/Vol] 15.3 g/dL 12.0 - 16.0 g/dL [facility] IMMATURE GRANULOCYTES ABS AUTO 0.03 [facility] Immature granulocytes/100 WBC (Bld) 0.4 % 0.0 - 0.5 % [facility] Interpretation and review of laboratory results Abnormal [facility] LYMPHOCYTES ABSOLUTE AUTO 1.3 [facility] Lymphocytes/100 WBC (Bld) 15.8 % Low 20.5 - 60.0 % [facility] MCH (RBC) [Entitic mass] 33.7 pg 26.7 - 34.0 pg [facility] MCHC (RBC) [Mass/Vol] 32.2 g/dL 29.9 - 35.2 g/dL [facility] MCV (RBC) [Entitic vol] 104.6 fL High 81.0 - 99.0 fL [facility] MONOCYTES ABSOLUTE AUTO 0.5 [facility] Monocytes/100 WBC (Bld) 6.4 % 1.7 - 12.0 % [facility] NEUTROPHILS ABSOLUTE AUTO 5.8 [facility] Neutrophils/100 WBC (Bld) 72.7 % 43.0 - 75.0 % [facility] Platelet mean volume (Bld) [Entitic vol] 9.1 fL Low 9.5 - 13.5 fL [facility] TBH EO # 0.4 [facility] TBH PLT 218 [facility] RBC 4.54 [facility] WBC 8 [facility] MLR HEMOGLOBIN A1Con 024 Glucose [Mass/Vol] 111 mg/dL [facility] HbA1c (Bld) [Mass fraction] 5.5 % 4.5 - 6.2 % [facility] Comment on above: ADA RECOMMENDED LIMI T 4.0 - 6.0 ADA THERAPEUTIC TARGET < 7.0 ACTION SUGGESTED > 7.[facility] 01-12-2023 BASO # 0.0 103/ul Normal 0.0-0.1 [facility] Comment on above: Performed By: #### T SH #### [facility] [address] [place] [address] Dr. Marla Varner Basophils/100 WBC (Bld) 0.1 % Critically low 0.2-2.0 [facility] Comment on above: Performed By: #### T SH #### [facility] [address] [place] [address] Dr. Marla Varner EO # 0.3 103/ul Normal 0.0-0.7 [facility] Comment on above: Performed By: #### T SH #### [facility] [address] [place] [address] Dr. Marla Varner Eosinophils/100 WBC (Bld) 4.6 % Normal 0.9-7.0 [facility] Comment on above: Performed By: #### T SH #### [facility] [address] [place] [address] Dr. Marla Varner Erythrocyte distribution width (RBC) [Ratio] 14.6 % Normal 11.0-15.0 [facility] Comment on above: Performed By: #### T SH #### [facility] [address] [place] [address] Dr. Marla Varner Hematocrit (Bld) [Volume fraction] 46.0 % Normal 36.0-48.0 [facility] Comment on above: Performed By: #### T SH #### [facility] [address] [place] [address] Dr. Marla Varner Hemoglobin (Bld) [Mass/Vol] 15.1 g/dL Normal 12.0-16.0 [facility] Comment on above: Performed By: #### T SH #### [facility] [address] [place] [address] Dr. Marla Varner IG # 0.01 10e3/ul Normal 0.00-0.03 [facility] Comment on above: Performed By: #### T SH #### [facility] [address] [place] [address] Dr. Marla Varner IG % 0.1 % Normal 0.0-0.5 [facility] Comment on above: Performed By: #### T SH #### [facility] [address] [place] [address] Dr. Marla Varner LYMPH # 1.3 103/ul Normal 1.2-3.8 [facility] Comment on above: Performed By: #### T SH #### [facility] [address] [place] [address] Dr. Marla Varner Lymphocytes/100 WBC (Bld) 19.7 % Critically low 20.5-60.0 [facility] Comment on above: Performed By: #### T SH #### [facility] [address] [place] [address] Dr. Marla Varner MANUAL DIFF REQ NO Normal [facility] Comment on above: Performed By: #### T SH #### [facility] [address] [place] [address] Dr. Marla Varner MCH (RBC) [Entitic mass] 33.6 pg Normal 26.7-34.0 [facility] Comment on above: Performed By: #### T SH #### [facility] [address] [place] [address] Dr. Marla Varner MCHC (RBC) [Mass/Vol] 32.8 g/dL Normal 29.9-35.2 [facility] Comment on above: Performed By: #### T SH #### [facility] [address] [place] [address] Dr. Marla Varner MCV (RBC) [Entitic vol] 102.4 fL Critically high 81.0-99.0 [facility] Comment on above: Performed By: #### T SH #### [facility] [address] [place] [address] Dr. Marla Varner MONO # 0.5 103/ul Normal 0.3-0.8 [facility] Comment on above: Performed By: #### T SH #### [facility] [address] [place] [address] Dr. Marla Varner Monocytes/100 WBC (Bld) 7.3 % Normal 1.7-12.0 [facility] Comment on above: Performed By: #### T SH #### [facility] [address] [place] [address] Dr. Marla Varner NEUT # 4.6 103/ul Normal 1.4-6.5 [facility] Comment on above: Performed By: #### T SH #### [facility] [address] [place] [address] Dr. Marla Varner Neutrophils/100 WBC (Bld) 68.2 % Normal 43.0-75.0 [facility] Comment on above: Performed By: #### T SH #### [facility] [address] [place] [address] Dr. Marla Varner Platelet mean volume (Bld) [Entitic vol] 9.1 fL Critically low 9.5-13.5 [facility] Comment on above: Performed By: #### T SH #### [facility] [address] [place] [address] Dr. Marla Varner PLT 194 103/ul Normal 150-450 [facility] Comment on above: Performed By: #### T SH #### [facility] [address] [place] [address] Dr. Marla Varner RBC 4.49 106/ul Normal 4.20-5.40 [facility] Comment on above: Performed By: #### T SH #### [facility] [address] [place] [address] Dr. Marla Varner WBC 6.7 103/ul Normal 4.0-11.0 [facility] Comment on above: Performed By: #### T SH #### [facility] [address] [place] [address] Dr. Marla Varner PROF 14(COMP METB)on 023 Albumin [Mass/Vol] 3.6 g/dL Normal 3.4-5.0 [facility] Comment on above: Performed By: #### U DANIELLE, CMP #### [facility] [address] [place] [address] Dr. Marla Varner Albumin/Globulin [Mass ratio] 1.0 {ratio} Normal [facility] Comment on above: Performed By: #### U DANIELLE, CMP #### [facility] [address] [place] [address] Dr. Marla Varner ALP [Catalytic activity/Vol] 93 U/L Normal 46-116 [facility] Comment on above: Performed By: #### U DANIELLE, CMP #### [facility] [address] [place] [address] Dr. Marla Varner ALT [Catalytic activity/Vol] 26 U/L Normal 14-59 [facility] Comment on above: Performed By: #### U DANIELLE, CMP #### [facility] [address] [place] [address] Dr. Marla Varner Anion gap [Moles/Vol] 12.3 mmol/L Normal [facility] Comment on above: Performed By: #### U DANIELLE, CMP #### [facility] [address] [place] [address] Dr. Marla Varner AST [Catalytic activity/Vol] 20 U/L Normal 15-37 [facility] Comment on above: Performed By: #### U DANIELLE, CMP #### [facility] [address] [place] [address] Dr. Marla Varner Bilirubin [Mass/Vol] 0.4 mg/dL Normal 0.2-1.0 [facility] Comment on above: Performed By: #### U DANIELLE, CMP #### [facility] [address] [place] [address] Dr. Marla Varner Calcium [Mass/Vol] 9.2 mg/dL Normal 8.5-10.1 [facility] Comment on above: Performed By: #### U DANIELLE, CMP #### [facility] [address] [place] [address] Dr. Marla Varner Chloride [Moles/Vol] 102 mmol/L Normal 98-107 [facility] Comment on above: Performed By: #### U DANIELLE, CMP #### [facility] [address] [place] [address] Dr. Marla Varner CO2 [Moles/Vol] 32.3 mmol/L Critically high 21.0-32.0 [facility] Comment on above: Performed By: #### U DANIELLE, CMP #### [facility] [address] [place] [address] Dr. Marla Varner Creatinine [Mass/Vol] 0.84 mg/dL Normal 0.55-1.02 [facility] Comment on above: Performed By: #### U DANIELLE, CMP #### [facility] [address] [place] [address] Dr. Marla Varner EGFR-AF PANAMANIAN >60 Normal >=60 [facility] Comment on above: Performed By: #### U DANIELLE, CMP #### [facility] [address] [place] [address] Dr. Marla Varner EGFR-NON AF PANAMANIAN >60 Normal >=60 [facility] Comment on above: Performed By: #### U DANIELLE, CMP #### [facility] [address] [place] [address] Dr. Marla Varner Globulin (S) [Mass/Vol] 3.7 g/dL Normal [facility] Comment on above: Performed By: #### U DANIELLE, CMP #### [facility] [address] [place] [address] Dr. Marla Varner Glucose [Mass/Vol] 114 mg/dL Critically high 74-106 T [facility] Comment on above: Performed By: #### U DANIELLE, CMP #### [facility] [address] [address] [address] Marla Varner Potassium [Moles/Vol] 4.6 mmol/L Normal 3.5-5.1 [facility] Comment on above: Performed By: #### U DANIELLE, CMP #### [facility] [address] [place] [address] Dr. Marla Varner Protein [Mass/Vol] 7.3 g/dL Normal 6.4-8.2 [facility] Comment on above: Performed By: #### U DANIELLE, CMP #### [facility] [address] [place] [address] Dr. Marla Varner Sodium [Moles/Vol] 142 mmol/L Normal 136-145 [facility] Comment on above: Performed By: #### U DANIELLE, CMP #### [facility] [address] [place] [address] Dr. Marla Varner Urea nitrogen [Mass/Vol] 15.0 mg/dL Normal 7.0-18.0 [facility] Comment on above: Performed By: #### U DANIELLE, CMP #### [facility] [address] [place] [address] Dr. Marla Varner Urea nitrogen/Creatinin e [Mass ratio] 17.9 mg/mg Normal [facility] Comment on above: Performed By: #### U DANIELLE, CMP #### [facility] [address] [place] [address] Dr. Marla Varner SED RATE WESTERGRENon 2022 SED RATE 47 mm/hr Critically high <=30 [facility] Comment on above: Performed By: #### S EDR #### [facility] [address] [place] [address] Dr. Marla Varner URIC ACID SERUMon 01-12-2023 Urate [Mass/Vol] 3.3 mg/dL Normal 2.6-6.0 [facility] Comment on above: Performed By: #### U DANIELLE, CMP #### [facility] [address] [place] [address] Dr. Marla Varner CBC AUTO DIFFon 10-13-2022 BASO # 0.0 103/ul Normal 0.0-0.1 [facility] Comment on above: Performed By: #### I NSULT #### [facility] [address] [place] [address] Dr. Marla Varner Basophils/100 WBC (Bld) 0.3 % Normal 0.2-2.0 [facility] Comment on above: Performed By: #### I NSULT #### [facility] [address] [place] [address] Dr. Marla Varner EO # 0.4 103/ul Normal 0.0-0.7 [facility] Comment on above: Performed By: #### I NSULT #### [facility] [address] [place] [address] Dr. Marla Varner Eosinophils/100 WBC (Bld) 5.8 % Normal 0.9-7.0 [facility] Comment on above: Performed By: #### I NSULT #### [facility] [address] [place] [address] Dr. Marla Varner Erythrocyte distribution width (RBC) [Ratio] 14.8 % Normal 11.0-15.0 [facility] Comment on above: Performed By: #### I NSULT #### [facility] [address] [place] [address] Dr. Marla Varner Hematocrit (Bld) [Volume fraction] 44.4 % Normal 36.0-48.0 [facility] Comment on above: Performed By: #### I NSULT #### [facility] [address] [place] [address] Dr. Marla Varner Hemoglobin (Bld) [Mass/Vol] 14.6 g/dL Normal 12.0-16.0 [facility] Comment on above: Performed By: #### I NSULT #### [facility] [address] [place] [address] Dr. Marla Varner IG # 0.02 10e3/ul Normal 0.00-0.03 [facility] Comment on above: Performed By: #### I NSULT #### [facility] [address] [address] [address] Marla Varner IG % 0.3 % Normal 0.0-0.5 [facility] Comment on above: Performed By: #### I NSULT #### [facility] [address] [address] [address] Marla Varner LYMPH # 1.6 103/ul Normal 1.2-3.8 [facility] Comment on above: Performed By: #### I NSULT #### [facility] [address] [place] [address] Dr. Marla Varner Lymphocytes/100 WBC (Bld) 21.6 % Normal 20.5-60.0 [facility] Comment on above: Performed By: #### I NSULT #### [facility] [address] [place] [address] Dr. Marla Varner MANUAL DIFF REQ NO Normal [facility] Comment on above: Performed By: #### I NSULT #### [facility] [address] [place] [address] Dr. Marla Varner MCH (RBC) [Entitic mass] 33.8 pg Normal 26.7-34.0 [facility] Comment on above: Performed By: #### I NSULT #### [facility] [address] [place] [address] Dr. Marla Varner MCHC (RBC) [Mass/Vol] 32.9 g/dL Normal 29.9-35.2 [facility] Comment on above: Performed By: #### I NSULT #### [facility] [address] [place] [address] Dr. Marla Varner MCV (RBC) [Entitic vol] 102.8 fL Critically high 81.0-99.0 [facility] Comment on above: Performed By: #### I NSULT #### [facility] [address] [place] [address] Dr. Marla Varner MONO # 0.5 103/ul Normal 0.3-0.8 [facility] Comment on above: Performed By: #### I NSULT #### [facility] [address] [address] [address] Marla Varner Monocytes/100 WBC (Bld) 6.9 % Normal 1.7-12.0 [facility] Comment on above: Performed By: #### I NSULT #### [facility] [address] [place] [address] Dr. Marla Varner NEUT # 4.7 103/ul Normal 1.4-6.5 [facility] Comment on above: Performed By: #### I NSULT #### [facility] [address] [place] [address] Dr. Marla Varner Neutrophils/100 WBC (Bld) 65.1 % Normal 43.0-75.0 [facility] Comment on above: Performed By: #### I NSULT #### [facility] [address] [place] [address] Dr. Marla Varner Platelet mean volume (Bld) [Entitic vol] 9.3 fL Critically low 9.5-13.5 [facility] Comment on above: Performed By: #### I NSULT #### [facility] [address] [place] [address] Dr. Marla Varner PLT 200 103/ul Normal 150-450 [facility] Comment on above: Performed By: #### I NSULT #### [facility] [address] [place] [address] Dr. Marla Varner RBC 4.32 106/ul Normal 4.20-5.40 [facility] Comment on above: Performed By: #### I NSULT #### [facility] [address] [place] [address] Dr. Marla Varner WBC 7.2 103/ul Normal 4.0-11.0 [facility] Comment on above: Performed By: #### I NSULT #### [facility] [address] [place] [address] Dr. Marla Varner FREE T3on 10-13-2022 FREE T3 2.20 pg/mlL Normal 2.18-3.98 [facility] Comment on above: Performed By: #### T SH #### [facility] [address] [place] [address] Dr. Marla Varner FREE T4on 10-13-2022 Free T4 [Mass/Vol] 1.30 ng/dL Normal 0.76-1.46 [facility] Comment on above: Performed By: #### T SH #### [facility] [address] [place] [address] Dr. Marla Varner PROF 14(COMP METB)on 022 Albumin [Mass/Vol] 3.4 g/dL Normal 3.4-5.0 [facility] Comment on above: Performed By: #### C MP, URIC #### [facility] [address] [place] [address] Dr. Marla Varner Albumin/Globulin [Mass ratio] 0.9 {ratio} Normal [facility] Comment on above: Performed By: #### C MP, URIC #### [facility] [address] [place] [address] Dr. Marla Varner ALP [Catalytic activity/Vol] 92 U/L Normal 46-116 [facility] Comment on above: Performed By: #### C MP, URIC #### [facility] [address] [place] [address] Dr. Marla Varner ALT [Catalytic activity/Vol] 17 U/L Normal 14-59 [facility] Comment on above: Performed By: #### C MP, URIC #### [facility] [address] [place] [address] Dr. Marla Varner Anion gap [Moles/Vol] 10.7 mmol/L Normal [facility] Comment on above: Performed By: #### C MP, URIC #### [facility] [address] [place] [address] Dr. Marla Varner AST [Catalytic activity/Vol] 17 U/L Normal 15-37 [facility] Comment on above: Performed By: #### C MP, URIC #### [facility] [address] [place] [address] Dr. Marla Varner Bilirubin [Mass/Vol] 0.4 mg/dL Normal 0.2-1.0 [facility] Comment on above: Performed By: #### C MP, URIC #### [facility] [address] [address] [address] Marla Varner Calcium [Mass/Vol] 8.8 mg/dL Normal 8.5-10.1 [facility] Comment on above: Performed By: #### C MP, URIC #### [facility] [address] [address] [address] Marla Varner Chloride [Moles/Vol] 101 mmol/L Normal 98-107 [facility] Comment on above: Performed By: #### C MP, URIC #### [facility] [address] [address] [address] Marla Varner CO2 [Moles/Vol] 32.5 mmol/L Critically high 21.0-32.0 [facility] Comment on above: Performed By: #### C MP, URIC #### [facility] [address] [address] [address] Marla Varner Creatinine [Mass/Vol] 0.72 mg/dL Normal 0.55-1.02 [facility] Comment on above: Performed By: #### C MP, URIC #### [facility] [address] [address] [address] Marla Varner EGFR-AF PANAMANIAN >60 Normal >=60 [facility] Comment on above: Performed By: #### C MP, URIC #### [facility] [address] [address] [address] Marla Varner EGFR-NON AF PANAMANIAN >60 Normal >=60 [facility] Comment on above: Performed By: #### C MP, URIC #### [facility] [address] [address] [address] Marla Varner Globulin (S) [Mass/Vol] 3.8 g/dL Normal [facility] Comment on above: Performed By: #### C MP, URIC #### [facility] [address] [address] [address] Marla Varner Glucose [Mass/Vol] 101 mg/dL Normal 74-106 [facility] Comment on above: Performed By: #### C MP, URIC #### [facility] [address] [address] [address] Marla Varner Potassium [Moles/Vol] 4.2 mmol/L Normal 3.5-5.1 [facility] Comment on above: Performed By: #### C MP, URIC #### [facility] [address] [address] [address] Marla Varner Protein [Mass/Vol] 7.2 g/dL Normal 6.4-8.2 [facility] Comment on above: Performed By: #### C MP, URIC #### [facility] [address] [address] [address] Marla Varner Sodium [Moles/Vol] 140 mmol/L Normal 136-145 [facility] Comment on above: Performed By: #### C MP, URIC #### [facility] [address] [place] [address] Dr. Marla Varner Urea nitrogen [Mass/Vol] 11.0 mg/dL Normal 7.0-18.0 [facility] Comment on above: Performed By: #### C MP, URIC #### [facility] [address] [address] [address] Marla Varner Urea nitrogen/Creatinin e [Mass ratio] 15.3 mg/mg Normal [facility] Comment on above: Performed By: #### C MP, URIC #### [facility] [address] [place] [address] Dr. Marla [facility] 51 mm/hr Critically high <=30 [facility] Comment on above: Performed By: #### S EDR #### [facility] [address] [address] [address] Marla Varner TSHon 10-13-2022 TSH 1.307 uIU/mL Normal 0.358-3.740 [facility] Comment on above: Performed By: #### T SH #### [facility] [address] [address] [address] Marla Varner URIC ACID SERUMon 10-13-2022 Urate [Mass/Vol] 3.2 mg/dL Normal 2.6-6.0 [facility] Comment on above: Performed By: #### C MP, URIC #### [facility] [address] [place] [address] Dr. Marla Varner INSULIN FREE AND TOTALon Free Insulin 17 uU/mL Normal [facility] Comment on above: Result Comment: Refe rence Range: Pubertal Children and Adults (fasting): 0 - 17 Performed By: #### I NSULT #### [facility] [address] [place] [address] Dr. Marla Varner Total Insulin 17 uU/mL Normal [facility] Comment on above: Result Comment: Non- Diabetic: In the absence of insulin- binding antibodies, the free and total insulin assays [...] developed and its performance characteristics determined by [facility] [employer]. It has not been cleared or approved by the Food and Drug Administration. Performed By: #### I NSULT #### [facility] [address] [place] [address] Dr. Marla Varner CBC AUTO DIFFon 07-21-2022 BASO # 0.0 103/ul Normal 0.0-0.1 [facility] Comment on above: Performed By: #### T SH #### [facility] [address] [place] [address] Dr. Marla Varner Basophils/100 WBC (Bld) 0.3 % Normal 0.2-2.0 [facility] Comment on above: Performed By: #### T SH #### [facility] [address] [place] [address] Dr. Marla Varner EO # 0.2 103/ul Normal 0.0-0.7 [facility] Comment on above: Performed By: #### T SH #### [facility] [address] [place] [address] Dr. Marla Varner Eosinophils/100 WBC (Bld) 2.7 % Normal 0.9-7.0 [facility] Comment on above: Performed By: #### T SH #### [facility] [address] [place] [address] Dr. Marla Varner Erythrocyte distribution width (RBC) [Ratio] 14.8 % Normal 11.0-15.0 [facility] Comment on above: Performed By: #### T SH #### [facility] [address] [place] [address] Dr. Marla Varner Hematocrit (Bld) [Volume fraction] 47.6 % Normal 36.0-48.0 [facility] Comment on above: Performed By: #### T SH #### [facility] [address] [place] [address] Dr. Marla Varner Hemoglobin (Bld) [Mass/Vol] 15.4 g/dL Normal 12.0-16.0 [facility] Comment on above: Performed By: #### T SH #### [facility] [address] [place] [address] Dr. Marla Varner IG # 0.03 10e3/ul Normal 0.00-0.03 [facility] Comment on above: Performed By: #### T SH #### [facility] [address] [place] [address] Dr. Marla Varner IG % 0.4 % Normal 0.0-0.5 [facility] Comment on above: Performed By: #### T SH #### [facility] [address] [place] [address] Dr. Marla Varner LYMPH # 1.6 103/ul Normal 1.2-3.8 [facility] Comment on above: Performed By: #### T SH #### [facility] [address] [place] [address] Dr. Marla Varner Lymphocytes/100 WBC (Bld) 21.1 % Normal 20.5-60.0 [facility] Comment on above: Performed By: #### T SH #### [facility] [address] [place] [address] Dr. Marla Varner MANUAL DIFF REQ NO Normal [facility] Comment on above: Performed By: #### T SH #### [facility] [address] [place] [address] Dr. Marla Varner MCH (RBC) [Entitic mass] 34.2 pg Critically high 26.7-34.0 [facility] Comment on above: Performed By: #### T SH #### [facility] [address] [place] [address] Dr. Marla Varner MCHC (RBC) [Mass/Vol] 32.4 g/dL Normal 29.9-35.2 [facility] Comment on above: Performed By: #### T SH #### [facility] [address] [place] [address] Dr. Marla Varner MCV (RBC) [Entitic vol] 105.8 fL Critically high 81.0-99.0 [facility] Comment on above: Performed By: #### T SH #### [facility] [address] [place] [address] Dr. Marla Varner MONO # 0.5 103/ul Normal 0.3-0.8 [facility] Comment on above: Performed By: #### T SH #### [facility] [address] [place] [address] Dr. Marla Varner Monocytes/100 WBC (Bld) 7.4 % Normal 1.7-12.0 [facility] Comment on above: Performed By: #### T SH #### [facility] [address] [place] [address] Dr. Marla Varner NEUT # 5.0 103/ul Normal 1.4-6.5 [facility] Comment on above: Performed By: #### T SH #### [facility] [address] [place] [address] Dr. Marla Varner Neutrophils/100 WBC (Bld) 68.1 % Normal 43.0-75.0 [facility] Comment on above: Performed By: #### T SH #### [facility] [address] [place] [address] Dr. Marla Varner Platelet mean volume (Bld) [Entitic vol] 10.5 fL Normal 9.5-13.5 [facility] Comment on above: Performed By: #### T SH #### [facility] [address] [place] [address] Dr. Marla Varner PLT 207 103/ul Normal 150-450 [facility] Comment on above: Performed By: #### T SH #### [facility] [address] [place] [address] Dr. Marla Varner RBC 4.50 106/ul Normal 4.20-5.40 [facility] Comment on above: Performed By: #### T SH #### [facility] [address] [place] [address] Dr. Marla Varner WBC 7.3 103/ul Normal 4.0-11.0 [facility] Comment on above: Performed By: #### T SH #### [facility] [address] [place] [address] Dr. Marla Varner FREE T4on 07-21-2022 Free T4 [Mass/Vol] 1.75 ng/dL Critically high 0.76-1.46 [facility] Comment on above: Performed By: #### T SH #### [facility] [address] [place] [address] Dr. Marla Varner PROF 14(COMP METB)on 022 Albumin [Mass/Vol] 3.7 g/dL Normal 3.4-5.0 [facility] Comment on above: Performed By: #### I NSULT #### [facility] [address] [place] [address] Dr. Marla Varner Albumin/Globulin [Mass ratio] 1.0 {ratio} Normal [facility] Comment on above: Performed By: #### I NSULT #### [facility] [address] [place] [address] Dr. Marla Varner ALP [Catalytic activity/Vol] 99 U/L Normal 46-116 [facility] Comment on above: Performed By: #### I NSULT #### [facility] [address] [address] [address] Marla Varner ALT [Catalytic activity/Vol] 25 U/L Normal 14-59 [facility] Comment on above: Performed By: #### I NSULT #### [facility] [address] [address] [address] Marla Varner Anion gap [Moles/Vol] 15.7 mmol/L Normal [facility] Comment on above: Performed By: #### I NSULT #### [facility] [address] [address] [address] Marla Varner AST [Catalytic activity/Vol] 20 U/L Normal 15-37 [facility] Comment on above: Performed By: #### I NSULT #### [facility] [address] [place] [address] Dr. Marla Varner Bilirubin [Mass/Vol] 0.4 mg/dL Normal 0.2-1.0 [facility] Comment on above: Performed By: #### I NSULT #### [facility] [address] [place] [address] Dr. Marla Varner Calcium [Mass/Vol] 8.9 mg/dL Normal 8.5-10.1 [facility] Comment on above: Performed By: #### I NSULT #### [facility] [address] [place] [address] Dr. Marla Varner Chloride [Moles/Vol] 99 mmol/L Normal 98-107 [facility] Comment on above: Performed By: #### I NSULT #### [facility] [address] [place] [address] Dr. Marla Varner CO2 [Moles/Vol] 25.3 mmol/L Normal 21.0-32.0 [facility] Comment on above: Performed By: #### I NSULT #### [facility] [address] [place] [address] Dr. Marla Varner Creatinine [Mass/Vol] 0.80 mg/dL Normal 0.55-1.02 [facility] Comment on above: Performed By: #### I NSULT #### [facility] [address] [address] [address] Marla Varner EGFR-AF PANAMANIAN >60 Normal >=60 [facility] Comment on above: Performed By: #### I NSULT #### [facility] [address] [address] [address] Marla Varner EGFR-NON AF PANAMANIAN >60 Normal >=60 [facility] Comment on above: Performed By: #### I NSULT #### [facility] [address] [address] [address] Marla Varner Globulin (S) [Mass/Vol] 3.6 g/dL Normal [facility] Comment on above: Performed By: #### I NSULT #### [facility] [address] [place] [address] Dr. Marla Varner Glucose [Mass/Vol] 113 mg/dL Critically high 74-106 T [facility] Comment on above: Performed By: #### I NSULT #### [facility] [address] [place] [address] Dr. Marla Varner Potassium [Moles/Vol] 4.0 mmol/L Normal 3.5-5.1 [facility] Comment on above: Performed By: #### I NSULT #### [facility] [address] [place] [address] Dr. Marla Varner Protein [Mass/Vol] 7.3 g/dL Normal 6.4-8.2 [facility] Comment on above: Performed By: #### I NSULT #### [facility] [address] [place] [address] Dr. Marla Varner Sodium [Moles/Vol] 136 mmol/L Normal 136-145 [facility] Comment on above: Performed By: #### I NSULT #### [facility] [address] [place] [address] Dr. Marla Varner Urea nitrogen [Mass/Vol] 10.0 mg/dL Normal 7.0-18.0 [facility] Comment on above: Performed By: #### I NSULT #### [facility] [address] [place] [address] Dr. Marla Varner Urea nitrogen/Creatinin e [Mass ratio] 12.5 mg/mg Normal [facility] Comment on above: Performed By: #### I NSULT #### [facility] [address] [place] [address] Dr. Marla Varner SED RATE WESTERGRENon 2021 SED RATE 34 mm/hr Critically high <=30 [facility] Comment on above: Performed By: #### T SH #### [facility] [address] [place] [address] Dr. Marla Varner TSHon 07-21-2022 TSH 0.152 uIU/mL Critically low 0.358-3.740 [facility] Comment on above: Performed By: #### T SH #### [facility] [address] [place] [address] Dr. Marla Varner URIC ACID SERUMon 07-21-2022 Urate [Mass/Vol] 3.3 mg/dL Normal 2.6-6.0 [facility] Comment on above: Performed By: #### I NSULT #### [facility] [address] [place] [address] Dr. Marla Varner CBC AUTO DIFFon 04-21-2022 BASO # 0.0 103/ul Normal 0.0-0.1 [facility] Comment on above: Performed By: #### T SH #### [facility] [address] [place] [address] Dr. Marla Varner Basophils/100 WBC (Bld) 0.1 % Critically low 0.2-2.0 [facility] Comment on above: Performed By: #### T SH #### [facility] [address] [place] [address] Dr. Marla Varner EO # 0.4 103/ul Normal 0.0-0.7 [facility] Comment on above: Performed By: #### T SH #### [facility] [address] [place] [address] Dr. Marla Varner Eosinophils/100 WBC (Bld) 5.1 % Normal 0.9-7.0 [facility] Comment on above: Performed By: #### T SH #### [facility] [address] [place] [address] Dr. Marla Varner Erythrocyte distribution width (RBC) [Ratio] 14.5 % Normal 11.0-15.0 [facility] Comment on above: Performed By: #### T SH #### [facility] [address] [place] [address] Dr. Marla Varner Hematocrit (Bld) [Volume fraction] 45.7 % Normal 36.0-48.0 [facility] Comment on above: Performed By: #### T SH #### [facility] [address] [place] [address] Dr. Marla Varner Hemoglobin (Bld) [Mass/Vol] 14.6 g/dL Normal 12.0-16.0 [facility] Comment on above: Performed By: #### T SH #### [facility] [address] [place] [address] Dr. Marla Varner IG # 0.03 10e3/ul Normal 0.00-0.03 [facility] Comment on above: Performed By: #### T SH #### [facility] [address] [place] [address] Dr. Marla Varner IG % 0.4 % Normal 0.0-0.5 [facility] Comment on above: Performed By: #### T SH #### [facility] [address] [place] [address] Dr. Marla Varner LYMPH # 0.9 103/ul Critically low 1.2-3.8 [facility] Comment on above: Performed By: #### T SH #### [facility] [address] [place] [address] Dr. Marla Varner Lymphocytes/100 WBC (Bld) 11.3 % Critically low 20.5-60.0 [facility] Comment on above: Performed By: #### T SH #### [facility] [address] [place] [address] Dr. Marla Varner MANUAL DIFF REQ NO Normal [facility] Comment on above: Performed By: #### T SH #### [facility] [address] [place] [address] Dr. Marla Varner MCH (RBC) [Entitic mass] 33.4 pg Normal 26.7-34.0 [facility] Comment on above: Performed By: #### T SH #### [facility] [address] [place] [address] Dr. Marla Varner MCHC (RBC) [Mass/Vol] 31.9 g/dL Normal 29.9-35.2 [facility] Comment on above: Performed By: #### T SH #### [facility] [address] [place] [address] Dr. Marla Varner MCV (RBC) [Entitic vol] 104.6 fL Critically high 81.0-99.0 [facility] Comment on above: Performed By: #### T SH #### [facility] [address] [place] [address] Dr. Marla Varner MONO # 0.3 103/ul Normal 0.3-0.8 [facility] Comment on above: Performed By: #### T SH #### [facility] [address] [place] [address] Dr. Marla Varner Monocytes/100 WBC (Bld) 3.9 % Normal 1.7-12.0 [facility] Comment on above: Performed By: #### T SH #### [facility] [address] [place] [address] Dr. Marla Varner NEUT # 6.1 103/ul Normal 1.4-6.5 [facility] Comment on above: Performed By: #### T SH #### [facility] [address] [place] [address] Dr. Marla Varner Neutrophils/100 WBC (Bld) 79.2 % Critically high 43.0-75.0 [facility] Comment on above: Performed By: #### T SH #### [facility] [address] [place] [address] Dr. Marla Varner Platelet mean volume (Bld) [Entitic vol] 10.4 fL Normal 9.5-13.5 [facility] Comment on above: Performed By: #### T SH #### [facility] [address] [place] [address] Dr. Marla Varner PLT 195 103/ul Normal 150-450 [facility] Comment on above: Performed By: #### T SH #### [facility] [address] [place] [address] Dr. Marla Varner RBC 4.37 106/ul Normal 4.20-5.40 [facility] Comment on above: Performed By: #### T SH #### [facility] [address] [place] [address] Dr. Marla Varner WBC 7.7 103/ul Normal 4.0-11.0 [facility] Comment on above: Performed By: #### T SH #### [facility] [address] [place] [address] Dr. Marla Varner PROF 14(COMP METB)on 022 Albumin [Mass/Vol] 3.3 g/dL Critically low 3.4-5.0 [facility] Comment on above: Performed By: #### U DANIELLE, CMP #### [facility] [address] [place] [address] Dr. Marla Varner Albumin/Globulin [Mass ratio] 0.8 {ratio} Normal [facility] Comment on above: Performed By: #### U DANIELLE, CMP #### [facility] [address] [place] [address] Dr. Marla Varner ALP [Catalytic activity/Vol] 97 U/L Normal 46-116 [facility] Comment on above: Performed By: #### U DANIELLE, CMP #### [facility] [address] [place] [address] Dr. Marla Varner ALT [Catalytic activity/Vol] 26 U/L Normal 14-59 [facility] Comment on above: Performed By: #### U DANIELLE, CMP #### [facility] [address] [place] [address] Dr. Marla Varner Anion gap [Moles/Vol] 18.0 mmol/L Normal [facility] Comment on above: Performed By: #### U DANIELLE, CMP #### [facility] [address] [address] [address] Marla Varner AST [Catalytic activity/Vol] 17 U/L Normal 15-37 [facility] Comment on above: Performed By: #### U DANIELLE, CMP #### [facility] [address] [address] [address] Marla Varner Bilirubin [Mass/Vol] 0.5 mg/dL Normal 0.2-1.0 [facility] Comment on above: Performed By: #### U DANIELLE, CMP #### [facility] [address] [address] [address] Marla Varner Calcium [Mass/Vol] 8.8 mg/dL Normal 8.5-10.1 [facility] Comment on above: Performed By: #### U DANIELLE, CMP #### [facility] [address] [place] [address] Dr. Marla Varner Chloride [Moles/Vol] 100 mmol/L Normal 98-107 [facility] Comment on above: Performed By: #### U DANIELLE, CMP #### [facility] [address] [place] [address] Dr. Marla Varner CO2 [Moles/Vol] 25.3 mmol/L Normal 21.0-32.0 [facility] Comment on above: Performed By: #### U DANIELLE, CMP #### [facility] [address] [place] [address] Dr. Marla Varner Creatinine [Mass/Vol] 0.95 mg/dL Normal 0.55-1.02 [facility] Comment on above: Performed By: #### U DANIELLE, CMP #### [facility] [address] [place] [address] Dr. Marla Varner EGFR-AF PANAMANIAN >60 Normal >=60 [facility] Comment on above: Performed By: #### U DANIELLE, CMP #### [facility] [address] [address] [address] Marla Varner EGFR-NON AF PANAMANIAN 58 mL/min/1.73m2 Critically low >=60 [facility] Comment on above: Performed By: #### U DANIELLE, CMP #### [facility] [address] [address] [address] Marla Varner Globulin (S) [Mass/Vol] 3.9 g/dL Normal [facility] Comment on above: Performed By: #### U DANIELLE, CMP #### [facility] [address] [address] [address] Malra Varner Glucose [Mass/Vol] 253 mg/dL Critically high 74-106 [facility] Comment on above: Performed By: #### U DANIELLE, CMP #### [facility] [address] [address] [address] Marla Varner Potassium [Moles/Vol] 4.3 mmol/L Normal 3.5-5.1 [facility] Comment on above: Performed By: #### U DANIELLE, CMP #### [facility] [address] [place] [address] Dr. Marla Varner Protein [Mass/Vol] 7.2 g/dL Normal 6.4-8.2 [facility] Comment on above: Performed By: #### U DANIELLE, CMP #### [facility] [address] [address] [address] Marla Varner Sodium [Moles/Vol] 139 mmol/L Normal 136-145 [facility] Comment on above: Performed By: #### U DANIELLE, CMP #### [facility] [address] [address] [address] Marla Varner Urea nitrogen [Mass/Vol] 13.0 mg/dL Normal 7.0-18.0 [facility] Comment on above: Performed By: #### U DANIELLE, CMP #### [facility] [address] [place] [address] Dr. Marla Varner Urea nitrogen/Creatinin e [Mass ratio] 13.6 mg/mg Normal [facility] Comment on above: Performed By: #### U DANIELLE, CMP #### [facility] [address] [place] [address] Dr. Marla Varner SED RATE [facility] 2021 SED RATE 35 mm/hr Critically high <=30 [facility] Comment on above: Performed By: #### T SH #### [facility] [address] [address] [address] Marla Varner URIC ACID SERUMon 04-21-2022 Urate [Mass/Vol] 3.6 mg/dL Normal 2.6-6.0 [facility] Comment on above: Performed By: #### U DANIELLE, CMP #### [facility] [address] [address] [address] Marla Varner XR DEXA BONE DENSITYon [...] by: KALEIGH SUTHERLAND Date: 2022-01-19 11:23 Normal [facility] CNOVSPon 10-21-2018 CNOVSP Visit (SP) Office (DONNELL) EUNICE CASTILLO ([id number]) 1950 FDate Time Provider Department10/21/18 10:40 AM [...] has reviewedselect slides from this case with concurrence.SUBJECTIVE/INT ERVAL HISTORY: Eunice Castillo reports that she feels [...] note were sent to:[place] [address]?CC:Yimi Montemayor DO (PCP)Referring Provider: BLAINE THOMPSON [[id number]]Allergies As of Date: 10/21/2018 Noted Allergy ReactionPENICILLINS [...] by BLAINE THOMPSON MD on 10/23/18 Normal [facility] PROGRESSon 10-21-2018 Protein mass conc HNO ID: [id number] thor: Blaine Maldonadoervice: (none)Author Type: PhysicianType: Progress NotesFiled: [...] has reviewedselect slides from this case with concurrence.SUBJECTIVE/INT ERVAL HISTORY: Eunice Castillo reports that she feels [...] this office note were sent to:[place] [address]?CC:Yimi Montemayor DO (PCP) Normal [facility] CNOVon 04-15-2018 CNOV Office Visit (GYNOSA) EUNICE CASTILLO ([id number]) 1950 FDate Time Provider Department04/15/18 8:00 AM [...] has reviewedselect slides from this case with concurrence.SUBJECTIVE/INT ERVAL HISTORY: Eunice Castillo reports that she feels [...] I advised her to follow with her manager technical services for routine health and gynmaintenance exams3. I will see her in 6 monthsBlaine Thompson MD, MPH25 min spent with the patient with >50% face to face counselingA letter and a copy of this office note were sent to:[place] [address]?CC:Yimi Montemayor DO (PCP)Referring Provider: BLAINE THOMPSON [[id number]]Allergies As of Date: 04/15/2018 Noted Allergy ReactionPENICILLINS [...] by BLAINE THOMPSON MD on 04/15/18 Normal [facility] PROGRESSon 04-15-2018 Protein mass conc HNO ID: [id number] thor: Blaine Maldonadoervice: (none)Author Type: PhysicianType: Progress NotesFiled: [...] has reviewedselect slides from this case with concurrence.SUBJECTIVE/INT ERVAL HISTORY: Eunice Castillo reports that she feels [...] I advised her to follow with her manager technical services for routine health andgyn maintenance exams3. I will see her in 6 monthsBlaine Thompson MD, MPH25 min spent with the patient with >50% face to face counselingA letter and a copy of this office note were sent to:[place] [address]?CC:Yimi Montemayor DO (PCP) Normal [facility] Vital Signs Date Time Vital Sign Value Performing Clinician Marjorie sands 12-20-2024 10:30-0500 Body height 162.6 cm Brunildafan Rose ASSISTED LIVING HOUSEKEEPER Work Phone: [facility] 12-20-2024 10:30-0500 Body mass index (BMI) [Ratio] 41.95 kg/m2 Brunilda Rose ASSISTED LIVING HOUSEKEEPER Work Phone: [facility] 12-20-2024 10:30-0500 Body temperature 98.29 [degF] Brunildafan Rose ASSISTED LIVING HOUSEKEEPER Work Phone: [facility] 12-20-2024 10:30-0500 Body weight 110.86 kg Brunilda Milton ASSISTED LIVING HOUSEKEEPER Work Phone: [facility] 12-20-2024 10:30-0500 Diastolic blood pressure 80 mm[Hg] Brunilda Milton ASSISTED LIVING HOUSEKEEPER Work Phone: [facility] 12-20-2024 10:30-0500 Heart rate 74 /min Brunilda Milton ASSISTED LIVING HOUSEKEEPER Work Phone: [facility] 12-20-2024 10:30-0500 Respiratory rate 22 /min Brunilda Milton ASSISTED LIVING HOUSEKEEPER Work Phone: [facility] 12-20-2024 10:30-0500 SaO2% (BldA) [Mass fraction] 95 % Brunilda Rose ASSISTED LIVING HOUSEKEEPER Work Phone: [facility] 12-20-2024 10:30-0500 Systolic blood pressure 138 mm[Hg] Brunilda Goodrichcoretta ASSISTED LIVING HOUSEKEEPER Work Phone: [facility] 06-12-2024 09:17-0400 Body mass index (BMI) [Ratio] 41.76 kg/m2 Brunilda Rose ASSISTED LIVING HOUSEKEEPER Work Phone: [facility] 06-12-2024 09:17-0400 Body temperature 97.3 [degF] Brunilda Rose ASSISTED LIVING HOUSEKEEPER Work Phone: [facility] 06-12-2024 09:17-0400 Body weight 110.36 kg Brunilda Goodrichcoretta ASSISTED LIVING HOUSEKEEPER Work Phone: [facility] 06-12-2024 09:17-0400 Diastolic blood pressure 75 mm[Hg] Brunilda Rose ASSISTED LIVING HOUSEKEEPER Work Phone: [facility] 06-12-2024 09:17-0400 Heart rate 79 /min Brunilda Rose ASSISTED LIVING HOUSEKEEPER Work Phone: [facility] 06-12-2024 09:17-0400 SaO2% (BldA) [Mass fraction] 94 % Brunilda Rose ASSISTED LIVING HOUSEKEEPER Work Phone: [facility] 06-12-2024 09:17-0400 Systolic blood pressure 131 mm[Hg] Brunilda Rose ASSISTED LIVING HOUSEKEEPER Work Phone: [facility] Encounters Encounter Date Encounter Type Care Provider Facility Start: 01-23-2025 End: 01-23-2025 Clinisync Result Encounter Generic External Data Provider [facility] External Department Unsolicited Start: 01-23-2025 End: 01-23-2025 Clinisync Result Encounter Generic External Data Provider [facility] External Department Unsolicited Start: 12-20-2024 End: 12-20-2024 Bamboo flowsheet Brunilda Chavarriating ASSISTED LIVING HOUSEKEEPER Work Phone: [facility] Start: 12-20-2024 End: 12-20-2024 Bamboo flowsheet Brunilda Chavarriating ASSISTED LIVING HOUSEKEEPER Work Phone: [facility] Start: 12-20-2024 End: 12-20-2024 Patient encounter procedure Brunilda Rose NP Work Phone: [facility] Comment on above: Encounter for subseq uent annual wellness visit (AWV) in Medicare patient (Primary Dx); Morbid (severe) obesity due to excess calories ([facility]); Body mass index (BMI) 40.0-44.9, adult ([facility]); Rheumatoid arthritis with rheumatoid factor, unspecified ([facility]/HCC); Malignant neoplasm of vagina ([facility]); Polyneuropathy; Primary hypertension ([facility]); Gastroesophageal reflux disease without esophagitis; Idiopathic chronic gout of multiple sites without tophus; Lower extremity edema; Age-related osteoporosis without current pathological fracture ([facility]); Hypothyroidism, unspecified type ([facility]); Chronic gout without tophus, unspecified cause, unspecified site; Hyperglycemia; Cigarette nicotine dependence without complication Start: 12-20-2024 End: 12-20-2024 ambulatory BRUNILDA ROSE Not Available Start: 10-16-2024 End: 10-16-2024 Clinisync Result Encounter Generic External Data Provider [facility] External Department Unsolicited Start: 10-16-2024 End: 10-16-2024 Clinisync Result Encounter Generic External Data Provider [facility] External Department Unsolicited Start: 06-22-2024 End: 06-22-2024 Clinisync Result Encounter Brunilda Rose NP Work Phone: [facility] External [facility] Unsolicited Start: 06-22-2024 End: 06-22-2024 Clinisync Result Encounter Brunilda Rose NP Work Phone: [facility] Unsolicited Start: 06-12-2024 End: 06-12-2024 Bamboo flowsheet Brunilda Rose ASSISTED LIVING HOUSEKEEPER Work Phone: [facility] Start: 06-12-2024 End: 06-12-2024 Bamboo flowsheet Brunilda Rose ASSISTED LIVING HOUSEKEEPER Work Phone: [facility] Start: 06-12-2024 End: 06-12-2024 Office outpatient visit 25 minutes Brunilda Rose ASSISTED LIVING HOUSEKEEPER Work Phone: [facility] Comment on above: Primary hypertension (CMS/HCC) (Primary Dx); Morbid (severe) obesity due to excess calories (CMS/HCC); Body mass index (BMI) 40.0-44.9, adult (CMS/HCC); Malignant neoplasm of vagina (CMS/HCC); Gastroesophageal reflux disease without esophagitis; Lower extremity edema; Hypothyroidism, unspecified type (CMS/HCC); Tobacco user; Hyperglycemia; Polyneuropathy; Rheumatoid arthritis with positive rheumatoid factor, involving unspecified site (CMS/HCC); Other fatigue Start: 06-12-2024 End: 06-12-2024 ambulatory BRUNILDA ROSE Not Available Start: 12-13-2023 Patient encounter procedure Brunilda Rose ASSISTED LIVING HOUSEKEEPER Work Phone: [facility] Start: 10-13-2023 Telephone encounter Zohra Gregorio [facility] Start: 01-12-2023 End: 01-13-2023 ambulatory LIME BURNER BRUNILDA MILTON Facility:[facility] Start: 10-13-2022 End: 10-14-2022 ambulatory LIME BURNER BRUNILDA JUAREZZ Facility:[facility] Start: 07-21-2022 End: 07-22-2022 ambulatory LIME BURNER BRUNILDA JUAREZZ Facility:[facility] Start: 04-21-2022 End: 04-22-[address] DOCTOR THORNTON Facility:[facility] Start: 01-19-2022 End: 01-20-2022 ambulatory LIME BURNER BRUNILDA MILTON Facility:[facility] Start: 10-21-2018 End: 10-26-2018 Patient encounter procedure BLAINE THOMPSON [facility] Start: 04-15-2018 End: 04-15-2018 [facility] Procedures Date Procedure Procedure Detail Performing Clinician Start: 01-23-2025 ALL CBC WITH AUTO DIFF Generic External Data Provider Start: 12-20-2024 Mammography Brunilda hopkins ASSISTED LIVING HOUSEKEEPER Work Phone: Start: 10-16-2024 ALL CBC WITH AUTO DIFF Generic External Data Provider Start: 06-22-2024 MLR HEMOGLOBIN A1C Brunilda Rose ASSISTED LIVING HOUSEKEEPER Work Phone: Start: 06-14-2023 Mammography Brunilda hopkins ASSISTED LIVING HOUSEKEEPER Work Phone: Plan of Treatment Date Care Activity Detail Author Start: 12-20-2025 Medicare Annual Well ness (AWV) Medicare Annual Wellness (AWV) [facility] Start: 12-20-2025 Screening for malign ant neoplasm of breast Mammogram [facility] Start: 12-20-2025 Urine screening for protein Diabetes: Urine Protein Screening [facility] Comment on above: Postponed from 09/25 (Other Medical Reasons) Start: 06-25-2025 End: 06-25-2025 Patient encounter procedure 06/25/2025 9:20 AM EDT Office Visit [facility] [address] [place] [id number] Brunilda Rose NP [address] [place] [phone] [facility] Start: 06-18-2025 Influenza vaccination Influenz a Vaccine (Season Ended) [facility] Start: 02-14-2025 Influenza vaccination Influenza Vacc ine (#1) [facility] Comment on above: Postponed from 06/18 (Patient Refused) Start: 12-20-2024 End: 12-20-2024 Patient encounter procedure 12/20/2024 10:30 AM EST Office Visit [facility] [address] [place] [phone] Brunilda Rose NP [address] [place] [phone] Polyneuropathy (Primary Dx); Morbid (severe) obesity due to excess calories (CMS/HCC); Body mass index (BMI) 40.0-44.9, adult (CMS/HCC); Rheumatoid arthritis with rheumatoid factor, unspecified (CMS/HCC); Malignant neoplasm of vagina (CMS/HCC); Primary hypertension (CMS/HCC); Gastroesophageal reflux disease without esophagitis; Idiopathic chronic gout of multiple sites without tophus; Lower extremity edema; Age-related osteoporosis without current pathological fracture ([facility]/HCC); Hypothyroidism, unspecified type ([facility]/HCC); Encounter for subsequent annual wellness visit (AWV) in Medicare patient; Chronic gout without tophus, unspecified cause, unspecified site; Hyperglycemia; Cigarette nicotine dependence without complication [facility] Comment on above: Polyneuropathy (Prim bebo Dx); Morbid (severe) obesity due to excess calories ([facility]/HCC); Body mass index (BMI) 40.0-44.9, adult ([facility]/HCC); Rheumatoid arthritis with rheumatoid factor, unspecified ([facility]/HCC); Malignant neoplasm of vagina ([facility]/HCC); Primary hypertension ([facility]); Gastroesophageal reflux disease without esophagitis; Idiopathic chronic gout of multiple sites without tophus; Lower extremity edema; Age-related osteoporosis without current pathological fracture ([facility]/HCC); Hypothyroidism, unspecified type ([facility]/HCC); Encounter for subsequent annual wellness visit (AWV) in Medicare patient; Chronic gout without tophus, unspecified cause, unspecified site; Hyperglycemia; Cigarette nicotine dependence without complication Start: 12-13-2024 Medicare Annual Well ness (AWV) Medicare Annual Wellness (AWV) [facility] Start: 12-13-2024 Screening for malign ant neoplasm of colon Colorectal Cancer Screening [facility] Comment on above: Postponed from 09/25 (Patient Refused) Start: 12-12-2024 End: 12-12-2024 Patient encounter procedure 12/12/2024 10:00 AM EST Office Visit [facility] [address] [place] [phone] Brunilda Rose NP [address] [place] [address] [facility] Start: 06-19-2024 Glaucoma screening Diabetes: R etinopathy Screening [facility] Comment on above: Postponed from 09/25 (Other Medical Reasons) Start: 06-19-2024 Urine screening for protein Diabetes: Urine Protein Screening [facility] Comment on above: Postponed from 09/25 (Other Patient Reasons) Start: 06-18-2024 Influenza vaccination Influenza Vacc ine (#1) [facility] Start: 06-14-2024 Screening for malign ant neoplasm of breast Mammogram [facility] Start: 06-12-2024 End: 06-12-2024 Patient encounter procedure 06/12/2024 9:20 AM EDT Office Visit [facility] [address] [place] [address] Brunilda Rose, RHEA [address] [place] [address] Morbid (severe) obesity due to excess calories (CMS/HCC); Body mass index (BMI) 40.0-44.9, adult (CMS/HCC); Malignant neoplasm of vagina (CMS/HCC) [facility] Comment on above: Morbid (severe) obes ity due to excess calories (CMS/HCC); Body mass index (BMI) 40.0-44.9, adult (CMS/HCC); Malignant neoplasm of vagina (CMS/HCC) Start: 10-21-2023 Adult BMI Screening Adult BMI Screen ing [facility] Start: 06-18-2023 COVID-19 Vaccine ( season) COVID-19 Vaccine ( season) [facility] Start: 06-18-2023 Influenza vaccination Influenza Vacc ine [facility] Start: 2015 Fall Risk Screening Fall Risk Screen ing [facility] Start: 2000 Administration of varicella zoster vaccine Zoster (Shingles) Vaccine (1 of 2) [facility] Start: 1969 DTaP,Tdap and Td Vaccines (1 - Tdap) DTaP,Tdap and Td Vaccines (1 - Tdap) [facility] Start: 1969 Urine screening for protein Diabetes: Urine Protein Screening [facility] Start: 1968 Adult BMI Follow Up Plan Adult BMI F ollow Up Plan [facility] Start: 1962 Depression Screening Depression Scre ening [facility] Start: 1962 Tobacco Screening Tobacco Screening [facility] Start: 1960 Glaucoma screening Diabetes: R etinopathy Screening [facility] Start: 1950 Hemoglobin A1c measurement Diabetes: Hemoglobin A1C [facility] Start: 1950 Medicare Annual Well ness Visit Medicare Annual Wellness Visit [facility] Start: 1950 Screening for malign ant neoplasm of colon [facility] Immunizations Immunization Date Immunization Notes Care Provider Fa saji 07-30-2023 Influenza, Seasonal, Quadrivalent, Adjuvanted Brunilda Aichholz ASSISTED LIVING HOUSEKEEPER Work Phone: [facility] 07-30-2023 SARS-COV-2 (COVID-19 ) vaccine, mRNA, spike protein, LNP, PF, india-sucrose, 30 mcg/0.3 mL Brunilda Aichholz ASSISTED LIVING HOUSEKEEPER Work Phone: [facility] 07-30-2023 influenza virus vacc ine, unspecified formulation Brunilda Aichholz ASSISTED LIVING HOUSEKEEPER Work Phone: [facility] 08-11-2022 Influenza, Seasonal, Quadrivalent, Adjuvanted Brunilda Aichholz ASSISTED LIVING HOUSEKEEPER Work Phone: [facility] 08-11-2022 SARS-COV-2 (COVID-19 ) vaccine, mRNA, spike protein, LNP, bivalent, preservative free, 30 mcg/0.3 mL dose, india-sucrose formulation Brunilda Aichholz ASSISTED LIVING HOUSEKEEPER Work Phone: [facility] 08-11-2022 influenza virus vacc ine, unspecified formulation Zohra Oates [facility] 09-10-2021 Pfizer Purple Cap SARS-CoV-2 Vaccination Brunilda Aichholz ASSISTED LIVING HOUSEKEEPER Work Phone: [facility] 08-28-2021 pneumococcal polysaccharide vaccine, 23 valent Brunilda Aichholz ASSISTED LIVING HOUSEKEEPER Work Phone: [facility] 08-26-2021 Influenza, Seasonal, Quadrivalent, Adjuvanted Brunilda Aichholz ASSISTED LIVING HOUSEKEEPER Work Phone: [facility] 01-07-2021 Pfizer Purple Cap SARS-CoV-2 Vaccination Brunilda Aichholz ASSISTED LIVING HOUSEKEEPER Work Phone: [facility] 12-17-2020 Pfizer Purple Cap SARS-CoV-2 Vaccination Brunilda Aichholz ASSISTED LIVING HOUSEKEEPER Work Phone: [facility] 08-27-2020 Influenza, Seasonal, Quadrivalent, Adjuvanted Brunilda Rose ASSISTED LIVING HOUSEKEEPER Work Phone: [facility] 08-27-2020 pneumococcal conjuga te vaccine, 13 valent Brunilda Rose ASSISTED LIVING HOUSEKEEPER Work Phone: [facility] Healthcare Payers Date Payer Category Payer Private Health Insurance [employer] [id number] 2015 Medicare [id number] 2015 Unknown [id number] 1959 Medicare [id number] 1959 Unknown [id number] 1950 Unknown [id number] 593 1950 Unknown [id number] 593 1950 Unknown [id number] 593 1950 Unknown [id number] 593 1950 Unknown [id number] 593 1950 Unknown [id number] 593 1950 Unknown [id number] 593 1950 Unknown [id number] 1259 1950 Unknown [id number] 1259 Social History Date Type Detail Facility Start: 10-31-2019 End: 12-06-2023 Tobacco smoking status MOIS Smokes tobacco daily [facility] History of tobacco use Cigarette Smoker P [facility] Start: 10-31-2019 End: 12-13-2023 Cigarettes smoked current (pack per day) - Reported 1 [facility] Start: 10-31-2019 Tobacco use and exposure Smokeless tobacco non-user [facility] Start: 11-13-2020 End: 12-20-2024 Alcohol intake Lifetime non-drinker (finding) [facility] Start: 08-16-2019 End: 12-13-2023 Alcohol Use Disorder Identification Test - Consumption [AUDIT-C] [facility] Frequency of Alcohol Consumption Never [facility] Start: 1950 Sex Assigned At Not on file [facility] Within the last year , have you [...] [facility] History of Present illness Narrative 12-20-2024 IBIS RAYA - 12/20/2024 10:30 AM Rosemarie Rose, RHEA - 12/20/2024 10:30 AM Rosemarie Rose, ASSISTED LIVING HOUSEKEEPER - 12/20/2024 6:53 AM Rosemarie Rose, ASSISTED LIVING HOUSEKEEPER - 12/20/2024 6:52 AM EST Note Date & Type Note Facility 12-20-2024 History of Presen t illness Narrative 138/80- wrist cuff 74- heart rate Pt would like to have a refill on everything most of them have only 1 left Images from the original note were not included. Eunice Castillo is a 74 y.o. 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 Symptoms include depressed mood, fatigue and leg swelling. Patient reports no anxiety, cold intolerance, constipation, diarrhea, palpitations or tremors. The symptoms have been stable. There is no history of heart failure. Edema Presents with chronic edema. The current episode started more than 1 year ago. The onset of the episode was gradual. The problem presents itself daily. The problem has been stable. The edema is present on the both side(s). Risk factors for edema include no known risk factors. Associated symptoms include fatigue. Pertinent negative symptoms include no abdominal pain, no chest pain, no cough, no fever, no hemoptysis, no nausea, no palpitations and no vomiting. Pertinent negative history includes no CAD, no CHF, no hepatitis and no liver disease. Treatments tried include diuretics. There has been moderate improvement on treatment(s). Hypertension This is a chronic problem. The current episode started more than 1 year ago. The problem is unchanged. The problem is controlled. Associated symptoms include peripheral edema. Pertinent negatives include no chest pain, headaches, palpitations or shortness of breath. There are no associated agents to hypertension. Risk factors for coronary artery disease include obesity and sedentary lifestyle. Past treatments include NICK inhibitors. The current treatment provides significant improvement. There are no compliance problems. There is no history of CAD/NE, heart failure or PVD. Identifiable causes of hypertension include a thyroid problem. SUBJECTIVE: MEDICATIONS: Current Outpatient Medications Medication Instructions adalimumab (HUMIRA) 40 mg, Subcutaneous, Every 14 days alendronate (FOSAMAX) 70 mg, Every 7 days allopurinol (Zyloprim) 300 MG tablet 1 tablet, Oral, Daily cetirizine (ZYRTEC) 10 mg, Oral, Daily RT colchicine 0.6 mg, Oral, As directed fiber 625 mg, Oral, Daily RT folic acid (FOLVITE) 1 mg, Daily furosemide (LASIX) 40 mg, Oral, Daily gabapentin (NEURONTIN) 300 mg, Oral, 2 times daily levothyroxine (SYNTHROID, LEVOXYL) 150 mcg, Oral, Daily before breakfast lisinopril 10 mg, Oral, Daily methotrexate 2.5 MG tablet 10 tablets, Oral, Weekly Multiple Vitamin (Multi-Vitamin) tablet 1 tablet, Oral, Daily RT omeprazole (PRILOSEC) 20 mg, Oral, 2 times daily before meals potassium chloride CR (Klor-Con) 10 MEQ ER tablet 2 pills twice a day2 pills twice a day predniSONE (Deltasone) 5 MG tablet 1.5 tablets, Oral, Daily ALLERGIES: Allergies Allergen Reactions Feldene [Piroxicam] Swelling Penicillins Unknown REVIEW OF SYMPTOMS: Review of Systems Constitutional: Positive for fatigue. Negative for appetite change, chills and fever. HENT: Negative for congestion, ear pain and sore throat. Eyes: Negative for pain, discharge, redness and visual disturbance. Respiratory: Negative for cough, hemoptysis, shortness of breath and wheezing. Cardiovascular: Positive for leg swelling. Negative for chest pain and palpitations. Gastrointestinal: Negative for abdominal pain, blood in stool, constipation, diarrhea, nausea and vomiting. Genitourinary: Negative for difficulty urinating, dysuria and frequency. Musculoskeletal: Negative for arthralgias, back pain, joint swelling and myalgias. Skin: Negative for rash and wound. Neurological: Negative for dizziness, tremors, seizures, syncope and headaches. Psychiatric/Behavioral: Positive for sleep disturbance. Negative for behavioral problems, self-injury and suicidal ideas. The patient is not nervous/anxious. Depression Hematological: Does not bruise/bleed easily. Endocrine: Negative for cold intolerance, polydipsia, polyphagia and polyuria. Allergic/Immunologic: Negative for environmental allergies and food allergies. PAST MEDICAL HISTORY Past Medical History: Diagnosis Date Abdominal pain, generalized 12/13/2023 Allergic rhinitis 12/13/2023 Broken tooth Endometriosis Fatigue 12/13/2023 Gout 12/13/2023 H/O degenerative disc disease 12/13/2023 Heel spur, left 12/13/2023 HTN (hypertension) ([facility]) 12/13/2023 Hyperglycemia 12/13/2023 Hypothyroid ([facility]) 12/13/2023 Lower extremity edema 12/13/2023 Morbid obesity with body mass index (BMI) of 40.0 to 49.9 ([facility]) 12/13/2023 Non-compliant patient 12/13/2023 Osteoarthritis 12/13/2023 Osteoporosis ([facility]) 12/13/2023 Polyneuropathy 12/13/2023 RA (rheumatoid arthritis) ([facility]) 12/13/2023 Tobacco user 12/13/2023 Vaginal cancer ([facility]) 12/13/2023 Vitamin B12 deficiency 12/13/2023 Past Surgical History: Procedure Laterality Date HYSTERECTOMY RADICAL VULVECTOMY 10/29/2016 modified radical posterior vulvectomy: 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 OBJECTIVE: Visit Vitals BP 138/80 (BP Location: Left arm, Patient Position: Sitting) Comment (BP Location): wrist Pulse 74 Temp 98.3 F (Temporal) Resp 22 Ht 5' 4 Wt 244 lb 6.4 oz SpO2 95% BMI 41.95 kg/m Smoking Status Every Day BSA 2.24 m Physical Exam Vitals and nursing note [...] is normal. Breath sounds: Normal breath sounds. No wheezing or rhonchi. Abdominal: General: Bowel sounds are normal. There is no distension. Palpations: Abdomen is soft. There is no mass. Tenderness: There is no abdominal tenderness. Musculoskeletal: General: Normal range of motion. Cervical back: Normal range of motion and neck supple. Right lower leg: Edema (trace) present. Left lower leg: Edema (trace) present. Lymphadenopathy: Cervical: No cervical adenopathy. Skin: General: [...] Visit Body mass index (BMI) 40.0-44.9, adult ([facility]) Chronic idiopathic gout of multiple sites Takes allopurinol Labs are follow with Rheumatology Gastroesophageal reflux disease without esophagitis Recommendations: freq small meals, nothing to eat or drink at least 2 hours prior to bed, limit caffeine, alcohol, as well as spicy foods Meds to limit or avoid if possible: NSAIDS, does take steroids Elevate HOB if possible Current med: omeprazole Is now only taking PPI once a day Relevant Medications omeprazole (PriLOSEC) [address] capsule Polyneuropathy - Primary Current medication is gabapentin It is not felt that the neuropathy is caused by diabetes Uses more for chronic pain, does not feel like it helps as much: multiple joint pains, offered to increase the dose, or trial elavil or duloxetine, she declines this as well OARRS reviewed Relevant Medications gabapentin (Neurontin) 300 MG capsule HTN (hypertension) ([facility]) Please check blood pressure daily and record DASH diet Limit caffeine Take medication as directed Contact office if chest pain, pressure, dizziness, shortness of breath, swelling legs Recommend slow position changes Current meds: lisinopril, and lasix Relevant Medications lisinopril 10 MG tablet Malignant neoplasm of vagina ([facility]) Osteoporosis ([facility]) DEXA was 05/10, -3.0, Current med fosamax Lower extremity edema Lasix Limit sodium, elevate feet as much as possible Check labs yearly and prn Relevant Medications furosemide (Lasix) 40 MG tablet potassium chloride CR (Klor-Con) 10 MEQ ER tablet Morbid (severe) obesity due to excess calories ([facility]) Discussed with patient their BMI (actual, verses recommended). We have also discussed lifestyle modifications: attempts to perform physical activity as chronic conditions allow, also to monitor dietary intake: increasing protein/fruits/veggies and lowering carb intake (unless contraindicated). Limit sodas, juices, and sugary drinks. Hypothyroid (CMS/[facility]) Current med on levothyroxine Check labs yearly, prn dose changes, changes in symptoms Relevant Medications levothyroxine (Synthroid, Levoxyl) 150 MCG tablet Rheumatoid arthritis with rheumatoid factor, unspecified ([facility]) Continue with dr cardenas Current meds: humira, methotrexate, Relevant Medications folic acid (Folvite) 1 MG tablet Hyperglycemia Has been told she had elevated glucose A1c 5.5% on 06/22/24 Labs in 10/16/24 glucose was 120 Gout Current meds allopurinol and colchicine Labs check w Rheumatology Encounter for subsequent annual wellness visit (AWV) in Medicare patient Reviewed Ht/Wt/BMI Recommend eye exam yearly Recommend dental exams twice a year Balance work/leisure activities Exercises is recommended most days of the week (appropriate as chronic conditions allow) Follow up yearly and prn Cigarette nicotine dependence without complication The patient has been advised of the risks of continued smoking: stroke, NE, all forms of cancer, lung disease, and . Options for quitting smoking include: cold turkey, hypnosis, acupuncture, nicotine replacement meds (gum, lozenges, and patches), Buproprion, and Varenicline. At this time pt is encouraged to evaluate their goals for wanting to quit smoking, and reach out to provider when ready to start this process Associated Problem(s): Cigarette nicotine dependence without complication The patient has been advised of the risks of continued smoking: stroke, NE, all forms of cancer, lung disease, and . Options for quitting smoking include: cold turkey, hypnosis, acupuncture, nicotine replacement meds (gum, lozenges, and patches), Buproprion, and Varenicline. At this time pt is encouraged to evaluate their goals for wanting to quit smoking, and reach out to provider when ready to start this process Associated Problem(s): Rheumatoid arthritis with rheumatoid factor, unspecified ([facility]) Continue with dr cardenas Current meds: humira, methotrexate, Associated Problem(s): Hyperglycemia Has been told she had elevated glucose A1c 5.5% on 06/22/24 Labs in 10/16/24 glucose was 120 Associated Problem(s): Gout Current meds allopurinol and colchicine Labs check w Rheumatology Associated Problem(s): Encounter for subsequent annual wellness visit (AWV) in Medicare patient Reviewed Ht/Wt/BMI Recommend eye exam yearly Recommend dental exams twice a year Balance work/leisure activities Exercises is recommended most days of the week (appropriate as chronic conditions allow) Follow up yearly and prn Associated Problem(s): Morbid (severe) obesity due to excess calories ([facility]) Discussed with patient their BMI (actual, verses recommended). We have also discussed lifestyle modifications: attempts to perform physical activity as chronic conditions allow, also to monitor dietary intake: increasing protein/fruits/veggies and lowering carb intake (unless contraindicated). Limit sodas, juices, and sugary drinks. 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/onc Associated Problem(s): Gastroesophageal reflux disease without esophagitis Recommendations: freq small meals, nothing to eat or drink at least 2 hours prior to bed, limit caffeine, alcohol, as well as spicy foods Meds to limit or avoid if possible: NSAIDS, does take steroids Elevate HOB if possible Current med: omeprazole Is now only taking PPI once a day Associated Problem(s): HTN (hypertension) ([facility]) Please check blood pressure daily and record DASH diet Limit caffeine Take medication as directed Contact office if chest pain, pressure, dizziness, shortness of breath, swelling legs Recommend slow position changes Current meds: lisinopril, and lasix Associated Problem(s): Polyneuropathy Current medication is gabapentin It is not felt that the neuropathy is caused by diabetes Uses more for chronic pain, does not feel like it helps as much: multiple joint pains, offered to increase the dose, or trial elavil or duloxetine, she declines this as well OARRS reviewed documented in this encounter [facility] History of Present illness Narrative [...] 12/13/2023 Heel spur, left 12/13/2023 HTN (hypertension) ([facility]) 12/13/2023 Hyperglycemia 12/13/2023 Hypothyroid ([facility]) 12/13/2023 Lower extremity edema 12/13/2023 Morbid obesity with body mass index (BMI) of 40.0 to 49.9 ([facility]) 12/13/2023 Non-compliant patient 12/13/2023 Osteoarthritis 12/13/2023 Osteoporosis ([facility]) 12/13/2023 Polyneuropathy 12/13/2023 RA (rheumatoid arthritis) ([facility]) 12/13/2023 Tobacco user 12/13/2023 Vaginal cancer ([facility]) 12/13/2023 Vitamin B12 deficiency 12/13/2023 Past Surgical [...] Visit Body mass index (BMI) 40.0-44.9, adult ([facility]) Gastroesophageal reflux disease without esophagitis Polyneuropathy Would like to increase gabapentin to 300mg BID Relevant Medications gabapentin (Neurontin) 300 MG capsule HTN (hypertension) ([facility]) - Primary Stable at this time No med dose change Relevant Medications lisinopril 10 MG tablet Malignant neoplasm of vagina ([facility]) Continue with Commercial Solar Sales Consultant/Onc Lower extremity edema Relevant Medications potassium chloride CR (Klor-Con) 10 MEQ ER tablet furosemide (Lasix) 40 MG tablet Morbid (severe) obesity due to excess calories ([facility]) Hypothyroid ([facility]) Fatigue, takes thyroid meds daily as directed Relevant Medications levothyroxine (Synthroid, Levoxyl) 150 MCG tablet Tobacco user RA (rheumatoid arthritis) ([facility]) Relevant Medications folic acid (Folvite) 1 MG [...] Malignant neoplasm of vagina (CMS/HCC) Continue with Commercial [employer] Sales Consultant/Onc documented in this encounter [facility] Note 10-13-2023 Telephone Encounter - Zohra Oates - 10/13/2023 2:33 PM EST Note Date & Type Note Facility 10-13-2023 Miscellaneous Notes Formattin g of this note might be different from the original. CALLED TO CANCEL FOLLOW UP WITH ANTONIETTA SHE DOES NOT WANT TO RESCHEDULE AT THIS TIME documented in this encounter [facility] Telephone encounter Note 10-13-2023 Telephone Encounter - Zohra Oates - 10/13/2023 2:33 PM EST Note Date & Type Note Facility 10-13-2023 Telephone encount er Note CALLED TO CANCEL FOLLOW UP WITH ANTONIETTA SHE DOES NOT WANT TO RESCHEDULE AT THIS TIME [facility] Evaluation note Note Date & Type [...] (CMS/HCC) Other fatigue documented in this encounter [facility] Evaluation note Note Date & Type Note Facility Evaluation note Diagnosis Encounter for subsequent annual wellness visit (AWV) in Medicare patient- Primary 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) Type 2 diabetes mellitus without complication, without long-term current use of insulin (CMS/HCC) Routine general medical examination at health care facility Routine general medical examination at a health care facility Hyperglycemia Other abnormal glucose Polyneuropathy Unspecified hereditary and idiopathic peripheral neuropathy Primary hypertension (CMS/HCC) Unspecified essential hypertension Lower extremity edema Edema Morbid obesity with body mass index (BMI) of 40.0 to 49.9 (CMS/HCC) Hypothyroidism, unspecified type (CMS/HCC) Rheumatoid arthritis with positive rheumatoid factor, involving unspecified site (CMS/HCC) Allergic rhinitis, unspecified seasonality, unspecified trigger Gastroesophageal reflux disease without esophagitis Esophageal reflux Primary hypertension (CMS/HCC)- Primary Unspecified essential hypertension [...] factor, involving unspecified site (CMS/HCC) Other fatigue Encounter for subsequent annual wellness visit (AWV) in Medicare patient- Primary Morbid (severe) obesity due to excess calories (CMS/HCC) Body mass index (BMI) 40.0-44.9, adult (CMS/HCC) Rheumatoid arthritis with rheumatoid factor, unspecified (CMS/HCC) Malignant neoplasm of vagina (CMS/HCC) Malignant neoplasm of vagina Polyneuropathy Unspecified hereditary and idiopathic peripheral neuropathy Primary hypertension (CMS/HCC) Unspecified essential hypertension Gastroesophageal reflux disease without esophagitis Esophageal reflux Idiopathic chronic gout of multiple sites without tophus Lower extremity edema Edema Age-related osteoporosis without current pathological fracture (CMS/HCC) Hypothyroidism, unspecified type (CMS/HCC) Chronic gout without tophus, unspecified cause, unspecified site Hyperglycemia Other abnormal glucose Cigarette nicotine dependence without complication documented in this encounter [facility] Instructions [...] section and content) DATE CREATED AUTHOR 10/27/2018 [facility] DATE CREATED AUTHOR AUTHOR'S ORGANIZ ATION 01/15/2023 [facility] DATE CREATED AUTHOR AUTHOR'S ORGANIZ ATION 12/22/2024 [facility] dical Specialists [employer] Care Teams (unrecognized sec tion and content) Estimator Relationship Specialty Start Date End Date Brunilda Rose, REGIONAL CLINICAL DIRECTOR-[employer] [address] [place] [id number] PCP - General Nurse Practitioner 08/16/19 Estimator Relationship Specialty Start Date End Date Jerry Shah MD [address] [place] [id number] PCP - General Family Medicine 12/06/23 Brunilda Rose NP [address] [place] [id number] Nurse Practitioner Family Medicine 10/18/22 Estimator Relationship Specialty Start Date End Date Jerry Shah MD [address] [place] [phone] PCP - General Family Medicine 12/06/23 Brunilda Rose NP [address] [place] [phone] Nurse Practitioner Family Medicine 10/18/22 Estimator Relationship Specialty Start Date End Date Jerry Shah MD [address] [place] [phone] PCP - General Family Medicine 12/06/23 Brunilda Rose NP [address] [place] [phone] Nurse Practitioner Family Medicine 10/18/22 Estimator Relationship Specialty Start Date End Date Jerry Shah MD [address] [place] [phone] PCP - General Family Medicine 12/06/23 Brunilda Rose NP [address] [place] [phone] Nurse Practitioner Family Medicine 10/18/22 Estimator Relationship Specialty Start Date End Date Jerry Shah MD [address] [place] [id number] PCP - General Family [facility] 12/06/23 Brunilda Rose NP [address] [place] [phone] Nurse Practitioner [facility] 10/18/22 Estimator Relationship Specialty Start Date End Date Jerry Shah MD [address] [place] [phone] PCP - General Family [facility] 12/06/23 Brunilda Rose NP [address] [place] [phone] Nurse Practitioner [facility] 10/18/22 Reason for Visit (unrecogniz ed section and content) Reason Comments Medicare Annual Wellness Visit Initial FOR RECORDS PERTAINING TO PATIENTS WHO ARE [...] BE BASED ON THE PRIMARY CLINICAL RECORDS. [facility] [employer] [facility]. provides no warranty or guarantee of the accuracy or completeness of information in this document.
[2025-05-16 09:04] LABS: Alanine Aminotransferase 30 U/L (14-59); Albumin Globulin Ratio 0.8; Albumin Level 3.4 g/dL (3.4-5.0); Alkaline Phosphatase 88 U/L (46-116); Anion Gap 9.9; Aspartate Amino Transferase 18 U/L (15-37); Blood Urea Nitrogen 14.0 mg/dL (7.0-18.0); Calcium 9.0 mg/dL (8.5-10.1); Carbon Dioxide 33.5 mmol/L (21.0-32.0); Chloride 102 mmol/L (98-107); Estimated GFR (African America >60 (>=60 mL/min/1.73m^2); Estimated GFR (Non-African Ame >60 (>=60 mL/min/1.73m^2); Globulin 4.1 g/dL; Glucose 119 mg/dL (74-106); Magnesium 1.7 mg/dL (1.8-2.4); Potassium 4.4 mmol/L (3.5-5.1); Sodium 141 mmol/L (136-145); Total Protein 7.5 g/dL (6.4-8.2); Uric Acid 3.2 mg/dL (2.6-6.0)
[2025-05-16 09:15] LABS: Hematocrit 46.3 % (36.0-48.0); Hemoglobin 15.1 g/dL (12.0-16.0); Immature Granulocytes Abs Auto 0.03 10^3/uL (0.00-0.03); Immature Granulocytes Pct Auto 0.3 % (0.0-0.5); Lymphocytes Absolute Auto 1.2 10^3/uL (1.2-3.8); Mean Corpuscular HGB Conc 32.6 g/dL (29.9-35.2); Mean Corpuscular Hemoglobin 34.6 pg (26.7-34.0); Mean Corpuscular Volume 106.2 fL (81.0-99.0); Platelet Count 205 10^3/uL (150-450); Red Blood Count 4.36 10^6/uL (4.20-5.40); White Blood Count 9.9 10^3/uL (4.0-11.0)
== END 2025-05-16 08:14 | disposition home or self-care (01) ==
LOC: LAB 08:19
PROVIDERS: Visit Provider Registered Nurse
DX: M05.79 Rheumatoid arthritis with rheumatoid factor of multiple sites without organ or systems involvement (principal); M15.0 Primary generalized (osteo)arthritis; M81.0 Age-related osteoporosis without current pathological fracture; Z79.899 Other long term (current) drug therapy; M10.09 Idiopathic gout, multiple sites
CPT/HCPCS: 36415; 80053; 83735; 84100; 84550; 85025; 85652

== ENCOUNTER 2025-08-10 00:31 | Emergency (ER) | payer MEDICARE, OTHER, SELFPAY ==
[2025-08-10 00:36] VITALS: BP 172/67; PULSE 56; TEMP 36.8; O2SAT 93; BMI 44.1
--- OUTSIDE RECORDS SUMMARY | 2025-08-10 00:39 | XMS_ITS | CCD ---
Author Organization [facility] CliniSynv Care Team Providers Care Clinical Sales Consultant Name Role Phone MAHDI, BLAINE Unavailable Unavailable MAHDI, BLAINE Unavailable Unavailable MAHDI, BLAINE Unavailable Unavailable MAHDI, BLAINE Unavailable Unavailable AICHHOLZ, COMMUNICATION INSTRUCTOR BRUNILDA Primary Care Unavailable MISC, DOCTOR Attending Unavailable MISC, DR SMITH Consulting Unavailable MISC, DR SMITH Admitting Unavailable AICHHOLZ, COMMUNICATION INSTRUCTOR BRUNILDA Consulting Unavailable AICHHOLZ, COMMUNICATION INSTRUCTOR BRUNILDA Admitting Unavailable AICHHOLZ, COMMUNICATION INSTRUCTOR BRUNILDA Primary Care Unavailable AICHHOLZ, COMMUNICATION INSTRUCTOR BRUNILDA Attending Unavailable MISC, DR SMITH Admitting Unavailable AICHHOLZ, COMMUNICATION INSTRUCTOR BRUNILDA Primary Care Unavailable MISC, DR SMITH Attending Unavailable MISC, DR SMITH Consulting Unavailable AICHHOLZ, COMMUNICATION INSTRUCTOR BRUNILDA Attending Unavailable AICHHOLZ, COMMUNICATION INSTRUCTOR BRUNILDA Consulting Unavailable AICHHOLZ, COMMUNICATION INSTRUCTOR BRUNILDA Primary Care Unavailable AICHHOLZ, COMMUNICATION INSTRUCTOR BRUNILDA Admitting Unavailable AICHHOLZ, COMMUNICATION INSTRUCTOR BRUNILDA Primary Care Unavailable MISC, DR SMITH Attending Unavailable MISC, DR SMITH Consulting Unavailable AICHHOLZ, COMMUNICATION INSTRUCTOR BRUNILDA Admitting Unavailable AICHHOLZ, COMMUNICATION INSTRUCTOR BRUNILDA Primary Care Unavailable THERESA, DR KAPOOR Admitting Unavailable KOKO, DR KALEIGH Jameson Consulting Unavailable CARDENAS, DR KAPOOR Attending Unavailable CARDENAS, DR KAPOOR Consulting Unavailable MISC, DR SMITH Attending Unavailable AICHHOLZ, COMMUNICATION INSTRUCTOR BRUNILDA Primary Care Unavailable MISC, DR SMITH Consulting Unavailable MISC, DR SMITH Admitting Unavailable Aichholz SALESFORCE DEVELOPER-GENI, Brunilda Altagracia Primary Care Provider Aichholz ENTERPRISE INTEGRATION DEVELOPER, Brunilda Unavailable Jerry Shah MD Primary Care Provider [phone] AICHHOLZ, BRUNILDA Attending Unavailable AICHHOLZ, BRUNILDA Attending Unavailable Aichholz ENTERPRISE INTEGRATION DEVELOPER-C, Brunilda J Primary Care Provider Milton LARA, Brunilda Frias Attending Provider Allergies Allergy ClassificationReported Allergen(s)Allergy TypeDate of OnsetReaction(s) Facility (12 sources)Penicillins; Translations: [PENICILLINS]Propensity to adverse reactions to drug (disorder)[phone], UnknownDunlap [facility] Rep[facility] (11 sources)PiroxicamDrug Ahvafne93-20-1765LhpluvlyTsuElgssl Health System Medications Current Medications MedicationDrug Class(es)DatesSig (Normalized)Sig (Original)acetaminophen 325 mg oral tablet (1 source)Start: 74-62-9080xzjn 2 tablets by mouth every six hours as needed acetaminophen (TYLENOL) 325 mg tablet Take 650 mg by mouth every 6 (six) hours as needed. 0 10/30/2016 Active0.8 ml adalimumab 50 mg/ml prefilled syringe (11 sources)Tumor Necrosis Factor BlockerStart: 51-87-7940Wbpdjioodi (Humira) 40 mg/0.8 mL syringe kit Active 0 SUBCUT .COMPLEX July 13, 2025 12:00am i nject one - 40 mg/0.8 mL syringe every 2 weeks subcut Complies with drug therapy adalimumab (Humira) 40 MG/0.8ML Prefilled Syringe Kit prefilled syringe Inject 40 mg under the skinevery 14 (fourteen) days Activeadalimumab (HUMIRA) 40 mg/0.8 mL injection Inject 40 mg under the skin Every 14 days. 0 Activealendronic acid 70 mg oral tablet (5 sources)BisphosphonateStart: 50-76-3951keky 1 tablet by mouth every week Alendronate (Fosamax) 70 mg tablet Active 70 MG PO every week July 13, 2025 12:00am Complieswith drug therapyStart: 13-66-8342wuslpnuvcyt (Fosamax) 70 MG tablet Take 70 mg by mouth every 7 (seven) days 11/28/2024 Activeallopurinol 300 mg oral tablet (11 sources)Xanthine Oxidase InhibitorStart: 48-07-3882tofd 1 tablet by mouth once dailyAllopurinol 300 mg tablet Active 300 MG PO Daily July 13, 2025 12:00am Complies with drug therapyStart: 35-76-2023igwo 1 tablet by mouth in the morningallopurinol (Zyloprim) 300 MG tablet Take 1 tablet by mouth in the morning. 09/30/2023 Activecalcium citrate/vitamin D3 (CITRACAL REGULAR ORAL) (1 source)take 2 tablets by mouth once dailycalcium citrate/vitamin D3 (CITRACAL REGULAR ORAL) Take 2 tablets by mouth daily. 0 Activecalcium polycarbophil 625 mg oral tablet (11 sources)Start: 06-95-4410Pudvmeb Polycarbophil 625 mg tablet Active 1250 MG PO Daily July 13, 2025 12:00am Complies with drug therapytake 1 tablet by mouth in the morningCalcium Polycarbophil (fiber) 625 MG tablet Take 625 mg by mouth in the morning. Activecetirizine hydrochloride 10 mg oral tablet (11 sources)Histamine-1 Receptor AntagonistStart: 30-72-6738voya 1 tablet by mouth once daily as neededCetirizine 10 mg tablet Active 10 MG PO Daily as needed July 13, 2025 12:00am Complies with drug therapyStart: 12-13-2023 take 1 tablet by mouth in the morningcetirizine (ZyrTEC) 10 MG tablet Indications: Allergic rhinitis, unspecified seasonality, unspecified trigger Take 1 tablet (10 mg) by mouth in the morning. 90 tablet 3 12/13/2023 Activetake 1 tablet by mouth once dailycetirizine (ZyrTEC) 10 mg tablet Take 10 mg by mouth daily. 0 Activecolchicine 0.6 mg oral tablet (13 sources)Start: 19-25-0506sttx 1 tablet by mouth once daily as needed Colchicine 0.6 mg tablet Active 0.6 MG PO Daily as needed for gout July 13, 2025 12:00am Complies with drug therapyStart: 46-49-9075jrhlaeliam 0.6 MG tablet Take 0.6 mg by mouth As directed 05/25/2024 ActiveStart: 09-30-2023 End: 10-95-6530fzbq 1 capsule by mouth in the morningMitigare 0.6 MG capsule Take 1 capsule by mouth in the morning. 09/30/2023 06/12/2024 Discontinued ( Therapy completed)Start: 20-88-3139milm 1 tablet by mouth once dailycolchicine (COLCRYS) 0.6 mg tablet Take 0.6 mg by mouth daily. 0 03/30/2017 Activedocusate sodium 100 mg oral capsule (1 source)Start: 07-71-3344pcha 1 capsule by mouth every twelve hours as needed docusate sodium (COLACE) 100 mg capsule Take 100 mg by mouth every 12 (twelve) hours as needed. 0 10/30/2016 Activefolic acid 1 mg oral tablet (14 sources)Start: 20-87-5650dedp 1 tablet by mouth once dailyFolic Acid 1 mg tablet Active 1 MG PO Daily July 16, 2025 12:00am Complies with drug therapyStart: 11-28-2024 End: 42-43-8548rwbj 1 tablet by mouth once dailyfolic acid (Folvite) 1 MG tablet Indications: Rheumatoid arthritis with rheumatoid factor, unspecified (CMS/HCC) Take 1 tablet (1 mg) by mouth Daily 90 tablet 3 12/20/2024 03/20/2025 Active Start: 09-30-2023 End: 89-89-6972xifv 1 tablet by mouth once daily in the morningfolic acid (Folvite) 1 MG tablet Indications: Rheumatoid arthritis with positive rheumatoid factor,involving unspecified site (CMS/HCC) Take 1 tablet (1,000 mcg) by mouth Daily Take 1 tablet by mouth in the morning. 90 tablet 3 06/12/2024 09/10/2024 Activefurosemide 40 mg oral tablet (15 sources)Loop DiureticStart: 09-75-2841blmh 1 tablet by mouth once daily Furosemide (Lasix) 40 mg tablet Active 40 MG PO Daily July 13, 2025 12:00am Complies with drug therapyStart: 12-13-2023 End: 51-34-9082nyor 1 tablet by mouth once dailyfurosemide (Lasix) 40 MG tablet Indications: Lower extremity edema Take 1 tablet (40 mg) by mouth Daily 90 tablet 3 12/20/2024 03/20/2025 ActiveStart: 77-25-4075vkic 1 tablet by mouth once dailyfurosemide (LASIX) 40 mg tablet Take 40 mg by mouth daily. 0 06/13/2016 Activegabapentin 300 mg oral capsule (19 sources)Anti-epileptic AgentStart: 42-96-0707zdgl 1 capsule by mouth twice dailyGabapentin 300 mg capsule Active 300 MG PO Twice daily July 13, 2025 12:00am Complies with drug therapyStart: 12-13-2023 End: 45-30-0619rglh 1 capsule by mouth in the morninggabapentin (Neurontin) 300 MG capsule Indications: Polyneuropathy Take 1 capsule (300 mg) by mouth in the morning and 1 capsule (300 mg) before bedtime. 180 capsule 3 12/20/2024 03/20/2025 ActiveStart: 12-13-2023 End: 06-61-3522bnoj 1 capsule by mouth in the morninggabapentin (Neurontin) 100 MG capsule Indications: Polyneuropathy Take 1 capsule (100 mg) by mouth in the morning. 90 capsule 3 12/13/2023 06/12/2024 Discontinued (Ineffective)Start: 17-23-5485hvbc 1 capsule by mouth once dailygabapentin (NEURONTIN) 300 mg capsule Take 300 mg by mouth nightly. 0 06/08/2016 Activegabapentin (NEURONTIN) 100 mg capsule Take 100 mg by mouth daily. !00 mg in AM, and 300 MG in PM 0 A ctivelevothyroxine sodium 0.15 mg oral tablet (15 sources)l-ThyroxineStart: 32-70-7846fanf 1 tablet by mouth once daily Levothyroxine 150 mcg tablet Active 150 MCG PO Daily July 13, 2025 12:00am Complies with drug therapyStart: 12-13-2023 End: 38-97-2553yhng 1 tablet by mouth before mealtimelevothyroxine (Synthroid, Levoxyl) 150 MCG tablet Indications: Hypothyroidism, unspecified type (CMS/HCC) Take 1 tablet (150 mcg) by mouth in the morning. Take before meals. 90 tablet 3 12/20/2024 03/20/2025 ActiveStart: 77-86-1831blex 1 tablet by mouth once daily levothyroxine (SYNTHROID, LEVOTHROID) 175 MCG tablet Take 175 mcg by mouth daily. 0 08/04/2019 Activelisinopril 10 mg oral tablet (15 sources)Angiotensin Converting Enzyme InhibitorStart: 05-40-1712ozpa 1 tablet by mouth once dailyLisinopril 10 mg tablet Active 10 MG PO Daily July 13, 2025 12:00am Complies with drug therapyStart: 12-13-2023 End: 46-18-1855uuxf 1 tablet by mouth once dailylisinopril 10 MG tablet Indications: Primary hypertension (CMS/HCC) Take 1 tablet (10 mg) by mouth Daily 90 tablet 3 12/20/2024 03/20/2025 Activetake 1 tablet by mouth once daily lisinopril (PRINIVIL,ZESTRIL) 10 mg tablet Take 10 mg by mouth daily. 0 Active loratadine 10 mg oral tablet (1 source)take 1 tablet by mouth once dailyloratadine (CLARITIN) 10 mg tablet Take 10 mg by mouth daily. 0 Activemagnesium hydroxide 80 mg/ml oral suspension (1 source)Start: 03-64-5332lqkwggnca hydroxide (MILK OF MAGNESIA) 400 mg/5 mL suspension Take 15 mL by mouth. 0 10/30/2016 Activemethotrexate 2.5 mg oral tablet (11 sources)Folate Analog Metabolic InhibitorStart: 89-10-0657mgym 1 tablet by mouth every weekMethotrexate Sodium 2.5 mg tablet Active 2.5 MG PO every week July 13, 2025 12:00am Complieswith drug therapyStart: 09-30-2023 methotrexate 2.5 MG tablet Take 10 tablets by mouth 1 (one) time per week. 09/30/2023 ActiveMultiple Vitamin (Multi-Vitamin) tablet (9 sources)take 1 tablet by mouth in the morningMultiple Vitamin (Multi-Vitamin) tablet Take 1 tablet by mouth in the morning. Activemultivitamin (THERAGRAN) tablet (1 source)take 1 tablet by mouth once dailymultivitamin (THERAGRAN) tablet Take 1 tablet by mouth daily. 0 ActiveMultivitamin tablet (1 source)Start: 14-78-7779ezyh 1 tablet by mouth once dailyMultivitamin tablet Active 1 TAB PO Daily July 13, 2025 12:00am Complies with drug therapy omeprazole 20 mg delayed release oral capsule (13 sources)Proton Pump InhibitorStart: 11-81-0338hghs 1 capsule by mouth once dailyOmeprazole 20 mg capsule,delayed release(DR/EC) Active 20 MG PO Daily July 13, 2025 12:00am Complies with drug therapyStart: 12-13-2023 End: 19-55-8973twez 1 capsule by mouth before mealtimeomeprazole (PriLOSEC) [address] capsule Indications: Gastroesophageal reflux disease without esophagitis Take 1 capsule (20 mg) by mouth in the morning. Take before meals. 90 capsule 3 12/20/2024 03/20/2025 Activetake 1 capsule by mouth once dailyomeprazole (PriLOSEC) 20 mg capsule Take 20 mg by mouth daily. 0 Activepotassium chloride 10 meq extended release oral tablet (15 sources)Start: 78-24-7111yssp 2 tablets by mouth twice dailyPotassium Chloride 10 mEq tablet extended release Active 20 MEQ PO Twice daily July 132:00am Complies with drug therapyStart: 03-83-7643gscpdewpt chloride CR (Klor-Con) 10 MEQ ER tablet Indications: Lower extremity edema 2 pills twice a day 360 tablet 3 12/20/2024 ActiveStart: 12-13-2023 End: 28-90-2530xvxcajxub chloride CR (Klor-Con) 10 MEQ ER tablet Indications: Lower extremity edema 2 pills twice a day2 pills twice a day 360 tablet 3 06/12/2024 12/20/2024 Discontinued (Reorder)Start: 18-51-9139ershydtcg chloride (K-DUR,KLOR-CON) 10 MEQ CR tablet Take 10 mEq by mouth daily. 0 03/30/2017 ActivepredniSONE 5 mg oral tablet (11 sources)Start: 78-60-2720fjtm 7.5 mg by mouth once dailyPrednisone 5 mg tablet Active 7.5 MG PO Daily July 13, 2025 12:00am Complies with drug therapyStart: 01-50-8563zicy 1.5 tablets by mouth in the morningpredniSONE (Deltasone) 5 MG tablet Take 1.5 tablets by mouth in the morning. 09/30/2023 Activetake 1 tablet by mouth once dailypredniSONE (DELTASONE) 5 mg tablet Take 5 mg by mouth daily. 0 Activevitamin b12 1 mg/ml injectable solution (1 source)Vitamin K07alznswdapsfclg (VITAMIN B-12) 1,000 mcg/mL injection Inject 1,000 mcg into the appropriate muscle every 30 (thirty) days. 0 Active Problems Active Problems Problem ClassificationProblemDateDocumented DateEpisodic/ChronicAbdominal pain (10 sources)Generalized abdominal pain; Translations: [Generalized abdominal pain]Onset: 697805-11-3052KslhoggnQnjkhe of other female genital organs (20 sources)Vulval intraepithelial neoplasia grade 3; Translations: [Carcinoma in situ of vulva]Onset: 487216-01-2876MxaknwnIairiqbg mellitus without complication (14 sources)Hyperglycemia; Translations: [Hyperglycemia, unspecified]Onset: 184489-22-1969MadafxpuZppkqegent disorders (15 sources)Gastroesophageal reflux disease without esophagitis; Translations: [Gastro-esophageal reflux disease without esophagitis]Onset: 10-06-2016 46-90-2749ZpvkpmnBykxcpvet hypertension (15 sources)Hypertensive disorder; Translations: [Essential (primary) hypertension]Onset: 411032-63-3745VusovfpJwko and other crystal arthropathies (20 sources)Idiopathic gout, multiple sites; Translations: [Chronic primary gouty arthritis]Onset: 684772-29-6684TvzavtgZujstiw and fatigue (12 sources)Fatigue; Translations: [Other fatigue]Onset: EpisodicNutritional deficiencies (10 sources)Cobalamin deficiency; Translations: [Deficiency of other specified B group vitamins]Onset: 701992-76-0536XrzahyxwOnlrxdpndgyxte (11 sources)Primary generalized (osteo)arthritis; Translations: [Osteoarthritis] Onset: 849038-34-6817DdjtygzOeiixbgykvhh (16 sources)Age-related osteoporosis without current pathological fracture; Translations: [Osteoporosis]Onset: 13-77-6970LutgqmvOtlft aftercare (1 source)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; Translations: [OTH HOSPITAL CORPSMAN CURRENT DRUG THERAPY]Onset: 81-36-7624SeqtwmfxThqey connective tissue disease (10 sources)H/O: osteoarthritis; Translations: [Personal history of other diseases of the musculoskeletal system and connective tissue]Onset: 12-13-2023 48-38-8340KeehnjfzZlhjm connective tissue disease (1 source)Calcaneal spur; Translations: [Calcaneal spur, unspecified foot] 78-67-6407GynuyztcEsgxk nervous system disorders (14 sources)Polyneuropathy; Translations: [Polyneuropathy, unspecified]Onset: 344842-85-8288PgwixpyEfaof non-traumatic joint disorders (10 sources)Pain in left shoulder; Translations: [Pain in joint, shoulder region]Onset: 222182-38-6535CdrratvwOranm nutritional; endocrine; and metabolic disorders (15 sources)Body mass index 40+ - severely obese; Translations: [Body mass index (BMI) 45.0-49.9, adult]Onset: 983852-75-1542LdfpvxgUxgey nutritional; endocrine; and metabolic disorders (15 sources)Obesity caused by energy imbalance; Translations: [Morbid (severe) obesity due to excess calories]Onset: 675540-76-1733CvohrfjMldop upper respiratory disease (10 sources)Allergic rhinitis; Translations: [Allergic rhinitis, unspecified] Onset: 063353-38-6989OfxcfqeIawpftre codes; unclassified (15 sources)Edema of lower extremity; Translations: [Localized edema]Onset: 555000-63-5065UanadbngGudxczuq codes; unclassified (10 sources)Noncompliance with treatment; Translations: [Non-compliant patient] Onset: 167630-36-2168OnohbmbaZunzfajayx arthritis and related disease (20 sources)Rheumatoid arthritis with rheumatoid factor of multiple sites without organ or systems involvement;Translations: [Rheumatoid arthritis]Onset: 10-06-2016 Resolved: 34-19-7335BbjzfsmPwxwciype-related disorders (17 sources)Smoker; Translations: [Nicotine dependence, unspecified, uncomplicated]Onset: 10-06-2016 Resolved: 971873-97-0505KtrklwaBjhlywd disorders (19 sources)Hypothyroidism, unspecified; Translations: [Hypothyroidism]Onset: 82-47-1885JoiqiphSpnhomrlgdpc (1 source)Unknown / UNK(Unknown)Onset: 04-15-2018 Past or Other Problems Problem ClassificationProblemDateDocumented DateEpisodic/ChronicDiabetes mellitus without complication (9 sources)Type 2 diabetes mellitus without complication; Translations: [Type 2 diabetes mellitus without complications]Onset: 11-22-2023 Resolved: 957028-58-1600TritqpbQedf disorders (9 sources)Mood disordersOnset: 12-13-2023 Resolved: Other connective tissue disease (9 sources)Calcaneal spur of left foot; Translations: [Calcaneal spur, left foot]Onset: 557691-42-5459EjygmkvdQbtkf nutritional; endocrine; and metabolic disorders (9 sources)Morbid obesity; Translations: [Morbid (severe) obesity due to excess calories]Onset: 10-06-2016 Resolved: 892432-38-8141FnmuvppAahwzgde codes; unclassified (11 sources)Tobacco user; Translations: [Tobacco use]Onset: 12-13-2023 Resolved: 407622-83-9817Jdpvhjbv Results Test NameValueInterpretationReference RangeFacilityALL CBC WITH AUTO DIFFon 19-13-4381TMRXTYLVY ABSOLUTE GHBA3BLMT HealthcareBasophils/100 WBC (Bld)0.3 %0.2 - 2.0 %NOMLakeland Regional HospitalEosinophils/100 WBC (Bld)6.1 %0.9 - 7.0 %[facility] Erythrocyte distribution width (RBC) [Ratio]14.9 %11.0 - 15.0 %[facility] Hematocrit (Bld) [Volume fraction]46.7 %36.0 - 48.0 %[facility] HospitalHemoglobin (Bld) [Mass/Vol]15 g/dL12.0 - 16.0 g/dLNOUniversity of Missouri Children's HospitalIMMATURE GRANULOCYTES ABS AUTO0.02NOUniversity of [place] Children's HospitalImmature granulocytes/100 WBC (Bld)0.3 %0.0 - 0.5 %[facility] HospitalInterpretation and review of laboratory resultsAbnormalNOUniversity of [facility] LYMPHOCYTES ABSOLUTE AUTO1.9NOUniversity of [place] Children's HospitalLymphocytes/100 WBC (Bld)26 %20.5 - 60.0 %[facility] HospitalMCH (RBC) [Entitic mass]33.6 pg26.7 - 34.0 pgNOJohn J. Pershing VA Medical CenterHC (RBC) [Mass/Vol]32.1 g/dL29.9 - 35.2 g/dLScotland County Memorial HospitalMCV (RBC) [Entitic vol]104.5 iGPvqa13.0 - 99.0 fLNOUniversity of Missouri Children's HospitalMONOCYTES ABSOLUTE AUTO 0.6NOMS HealthcareMonocytes/100 WBC (Bld)7.5 %1.7 - 12.0 %[facility] NEUTROPHILS ABSOLUTE AUTO4.4NOUniversity of Missouri Children's HospitalNeutrophils/100 WBC (Bld)59.8 %43.0 - 75.0 %[facility] HospitalPlatelet mean volume (Bld) [Entitic vol]9 fLLow9.5 - 13.5 fLScotland County Memorial HospitalTBH EO #0.5NOMS [facility] [id number] [facility] RBC4.47 [facility] WBC7.3NOUniversity of [place] Children's HospitalCLINISYNCNOMS HealthcareALL CBC WITH AUTO DIFFon 77-29-5050JRHYUOGKP ABSOLUTE COCQ1KFKTUniversity of Missouri Children's HospitalBasophils/100 WBC (Bld)0.3 %0.2 - 2.0 %[facility] HospitalEosinophils/100 WBC (Bld)4.4 %0.9 - 7.0 % [facility] HospitalErythrocyte distribution width (RBC) [Ratio]14.6 %11.0 - 15.0 % [facility] HospitalHematocrit (Bld) [Volume fraction]47.5 %36.0 - 48.0 %[facility] HospitalHemoglobin (Bld) [Mass/Vol]15.3 g/dL12.0 - 16.0 g/dLScotland County [facility] Hospital IMMATURE GRANULOCYTES ABS AUTO0.03NOUniversity of [place] Children's HospitalImnmture granulocytes/100 WBC (Bld)0.4 %0.0 - 0.5 %[facility] HospitalInterpretation and review of laboratory resultsAbnormalScotland County Memorial HospitalLYMPHOCYTES ABSOLUTE AUTO1.3NOUn[facility] of [facility] Lymphocytes/100 WBC (Bld)15.8 %Low20.5 - 60.0 %[facility] HospitalH (RBC) [Entitic mass]33.7 pg26.7 - 34.0 pgSamaritan HospitalHC (RBC) [Mass/Vol]32.2 g/dL29.9 - 35.2 g/dLSamaritan HospitalV (RBC) [Entitic vol]104.6 jYCuwk75.0 - 99.0 fLScotland County Memorial HospitalMONOCYTES ABSOLUTE AUTO0.5NOUniversity of [place] Children's HospitalMonocytes/100 WBC (Bld)6.4 % 1.7 - 12.0 %[facility] HospitalNEUTROPHILS ABSOLUTE AUTO5.8NOND [facility] Neutrophils/100 WBC (Bld)72.7 %43.0 - 75.0 %[facility] HealthcarePlatelet mean volume (Bld) [Entitic vol]9.1 fLLow9.5 - 13.5 fLNOND HealthcareTBH EO #0.4NOMS HealthcareTBH [id number] [facility] HospitalTB RBC4.54NOMS [facility] HospitalTB [id number] HealthcareCLINISYNCNOMS HealthcareMLR HEMOGLOBIN A1Con 15-46-9828Jhvhaeo [Mass/Vol]111 mg/dLNOUniversity of [place] Children's HospitalEhxabvbmxkKeC1j (Bld) [Mass fraction]5.5 %4.5 - 6.2 % [facility] HealthcareComment on above:ADA RECOMMENDED LIMIT 4.0 - 6.0 ADA THERAPEUTIC TARGET < 7.0 ACTION SUGGESTED > 7.0 CLINISYNCNOUniversity of [place] Children's HospitalCBC AUTO DIFFon 47-71-8026IHNV #0.0 103/ulNormal0.0-0.1 [facility] HospitalComment on above:Performed By: #### TSH #### [facility] [address] [place] [address] Dr. Marla VarnerBasophils/100 WBC (Bld)0.1 %Critically low0.2-2.0The [facility] HospitalComment on above:Performed By: #### TSH #### [facility] [address] [place] [address] Dr. Marla Velasquez #0.3 103/ulNormal0.0-0.7The [facility] HospitalComment on above: Performed By: #### TSH #### [facility] [address] [place] [address] Dr. Marla Schultzosinophils/100 WBC (Bld)4.6 %Normal0.9-7.0[facility] Comment on above:Performed By: #### TSH #### [facility] [address] [place] [address] Dr. Marla Schultzrythrocyte distribution width (RBC) [Ratio]14.6 %Zrozgu26.0-15.0 [facility] HospitalComment on above:Performed By: #### TSH #### [facility] [address] [place] [address] Dr. Marla VarnerHematocrit (Bld) [Volume fraction]46.0 %Fskkdi58.0-48.0The [facility] HospitalComment on above:Performed By: #### TSH #### [facility] [address] [place] [address] Dr. Marla VarnerHemoglobin (Bld) [Mass/Vol]15.1 g/yOJqcezl93.0-16.0The [facility] HospitalComment on above:Performed By: #### TSH #### [facility] [address] [place] [address] Dr. Marla VarnerIG #0.01 10e3/ulNormal0.00-0.03The [facility] HospitalCommclaren [facility] on above:Performed By: #### TSH #### [facility] [address] [place] [address] Dr. Marla VarnerIG %0.1 %Normal0.0-0.5The [facility] HospitalComment on above: Performed By: #### TSH #### [facility] [address] [place] [address] Dr. Marla Irby #1.3 103/ulNormal1.2-3.8The [facility] HospitalCommclaren [facility] on above:Performed By: #### TSH #### [facility] [address] [place] [address] Dr. Marla Hydemphocytes/100 WBC (Bld)19.7 %Critically low20.5-60.0The [facility] HospitalCommclaren [facility] on above:Performed By: #### TSH #### [facility] [address] [place] [address] Dr. Marla VarnerMANUAL DIFF REQNONormalThe [facility] HospitalComment on above: Performed By: #### TSH #### [facility] [address] [place] [address] Dr. Marla Townsend (RBC) [Entitic mass]33.6 wuAiyesh25.7-34.0The [facility] HospitalComment on above:Performed By: #### TSH #### [facility] [address] [address] [address] Marla McgrathHC (RBC) [Mass/Vol]32.8 g/aHOtgzxu69.9-35.2The [facility] HospitalComment on above:Performed By: #### TSH #### [facility] [address] [place] [address] Dr. Marla McgrathV (RBC) [Entitic vol]102.4 fLCritically high81.0-99.0The [facility] HospitalComment on above:Performed By: #### TSH #### [facility] [address] [place] [address] Dr. Marla Morales #0.5 103/ulNormal0.3-0.8The [facility] HospitalComment on above:Performed By: #### TSH #### [facility] [address] [place] [address] Dr. Marla Messinaocytes/100 WBC (Bld)7.3 %Normal1.7-12.0The [facility] Comment on above:Performed By: #### TSH #### [facility] [address] [place] [address] Dr. Marla Dave #4.6 103/ulNormal1.4-6.5The [facility] HospitalComment on above:Performed By: #### TSH #### [facility] [address] [place] [address] Dr. Marla Mcallisterutrophils/100 WBC (Bld)68.2 %Ncyuuj36.0-75.0The [facility] HospitalComment on above:Performed By: #### TSH #### [facility] [address] [place] [address] Dr. Marla Obrienlet mean volume (Bld) [Entitic vol]9.1 fLCritically low 9.5-13.5The [facility] HospitalComment on above:Performed By: #### TSH #### [facility] [address] [place] [address] Dr. Marla VarnerPLT194 103/lwUeqrbg141-499Hhm [facility] HospitalComment on above: Performed By: #### TSH #### [facility] [address] [place] [address] Dr. Marla VarnerRBC4.49 106/ulNormal4.20-5.40The [facility] on above:Performed By: #### TSH #### [facility] [address] [place] [address] Dr. Marla VarnerWBC6.7 103/ulNormal4.0-11.0The [facility] Centerment on above: Performed By: #### TSH #### [facility] [address] [place] [address] Dr. Marla BeardF 14(COMP METB)on 74-74-8176Wuesswh [Mass/Vol]3.6 g/dLNormal 3.4-5.0The [facility] on above:Performed By: #### URIC, CMP #### [facility] [address] [place] [address] Dr. Marla VarnerAlbumin/Globulin [Mass ratio]1.0 {ratio}NormalThe [facility] on above:Performed By: #### URIC, CMP #### [facility] [address] [place] [address] Dr. Marla Bynum [Catalytic activity/Vol]93 U/NCkdtjq87-026Zcg [facility] on above:Performed By: #### URIC, CMP #### [facility] [address] [place] [address] Dr. Marla Altamirano [Catalytic activity/Vol]26 U/OTezquf99-55Bro [facility] on above:Performed By: #### URIC, CMP #### [facility] [address] [place] [address] Dr. Marla Rowell gap [Moles/Vol]12.3 mmol/LNormalThe [facility] on above:Performed By: #### URIC, CMP #### [facility] [address] [place] [address] Dr. Marla Reyes [Catalytic activity/Vol]20 U/OMwfuqd25-38Rbz [facility] HospitalComment on above:Performed By: #### URIC, CMP #### [facility] [address] [address] [address] Marla VarnerBilirubin [Mass/Vol]0.4 mg/dLNormal0.2-1.0The [facility] Comment on above:Performed By: #### URIC, CMP #### [facility] [address] [place] [address] Dr. Marla VarnerCalcium [Mass/Vol]9.2 mg/dLNormal8.5-10.1The [facility] Comment on above:Performed By: #### URIC, CMP #### [facility] [address] [place] [address] Dr. Marla VarnerChloride [Moles/Vol]102 mmol/IHrayjo17-631Uyw [facility] Comment on above:Performed By: #### URIC, CMP #### [facility] [address] [place] [address] Dr. Marla VarnerCO2 [Moles/Vol]32.3 mmol/LCritically high21.0-32.0The [facility] HospitalComment on above:Performed By: #### URIC, CMP #### [facility] [address] [place] [address] Dr. Marla VarnerCreatinine [Mass/Vol]0.84 mg/dLNormal0.55-1.02The [facility] HospitalComment on above:Performed By: #### URIC, CMP #### [facility] [address] [place] [address] Dr. Marla SchultzGFR-AF TAJIK>60Normal>=60The [facility] HospitalComment on above:Performed By: #### URIC, CMP #### [facility] [address] [place] [address] Dr. Marla SchultzGFR-NON AF TAJIK>60Normal>=60The [facility]Commcl[facility] on above:Performed By: #### URIC, CMP #### [facility] [address] [place] [address] Dr. Marla VarnerGlobulin (S) [Mass/Vol]3.7 g/dLNormalThe [facility] HospitalComment on above:Performed By: #### URIC, CMP #### [facility] [address] [address] [address] Marla VarnerGlucose [Mass/Vol]114 mg/dLCritically lwdf62-487Zer [facility] HospitalComment on above:Performed By: #### URIC, CMP #### [facility] [address] [place] [address] Dr. Marla VarnerPotassium [Moles/Vol]4.6 mmol/LNormal3.5-5.1The [facility] Comment on above:Performed By: #### URIC, CMP #### [facility] [address] [place] [address] Dr. Marla VarnerProtein [Mass/Vol]7.3 g/dLNormal6.4-8.2[facility] Comment on above:Performed By: #### URIC, CMP #### [facility] [address] [place] [address] Dr. Marla VarnerSodium [Moles/Vol]142 mmol/VKillqi539-664Hma [facility] Comment on above:Performed By: #### URIC, CMP #### [facility] [address] [place] [address] Dr. Marla VarnerUrea nitrogen [Mass/Vol]15.0 mg/dLNormal7.0-18.0The [facility] HospitalComment on above:Performed By: #### URIC, CMP #### [facility] [address] [place] [address] Dr. Marla Vital nitrogen/Creatinine [Mass ratio]17.9 mg/mgNoOhioHealth Hardin Memorial HospitalComment on above:Performed By: #### URIC, CMP #### [facility] [address] [place] [address] Dr. Marla VarnerSED RATE WESTERGRENon 27-90-1878XLB RATE47 mm/hrCritically high <=30The [facility] HospitalComment on above:Performed By: #### SEDR #### [facility] [address] [place] [address] Dr. Marla Leavitt ACID SERUMon 55-93-8216Bvdej [Mass/Vol]3.3 mg/dLNormal 2.6-6.0The [facility] HospitalComment on above:Performed By: #### URIC, CMP #### [facility] [address] [place] [address] Dr. Marla Lowe AUTO DIFFon 31-40-5473CFDV #0.0 103/ulNormal0.0-0.1The [facility] HospitalComment on above:Performed By: #### INSULT #### [facility] [address] [place] [address] Dr. Marla VarnerBasophils/100 WBC (Bld)0.3 %Normal0.2-2.0The [facility] Comment on above:Performed By: #### INSULT #### [facility] [address] [place] [address] Dr. Gutiérrez ChangEO #0.4 103/ulNormal0.0-0.7The [facility] HospitalComment on above: Performed By: #### INSULT #### [facility] [address] [place] [address] Dr. Marla Schultzosinophils/100 WBC (Bld)5.8 %Normal0.9-7.0The [facility] Comment on above:Performed By: #### INSULT #### [facility] [address] [place] [address] Dr. Marla Schultzrythrocyte distribution width (RBC) [Ratio]14.8 %Dnrtrw38.0-15.0 The [facility] HospitalComment on above:Performed By: #### INSULT #### [facility] [address] [place] [address] Dr. Marla VarnerHematocrit (Bld) [Volume fraction]44.4 %Vcsuyg61.0-48.0The [facility] HospitalComment on above:Performed By: #### INSULT #### [facility] [address] [place] [address] Dr. Marla VarnerHemoglobin (Bld) [Mass/Vol]14.6 g/yCUmaxby91.0-16.0The [facility] HospitalComment on above:Performed By: #### INSULT #### [facility] [address] [address] [address] Marla Quezada #0.02 10e3/ulNormal0.00-0.03The [facility] on above:Performed By: #### INSULT #### [facility] [address] [place] [address] Dr. Marla Quezada %0.3 %Normal0.0-0.5The [facility] HospitalComment on above: Performed By: #### INSULT #### [facility] [address] [place] [address] Dr. Marla Irby #1.6 103/ulNormal1.2-3.8The [facility] on above:Performed By: #### INSULT #### [facility] [address] [place] [address] Dr. Marla Ibarrahocytes/100 WBC (Bld)21.6 %Jjmkrr61.5-60.0The [facility] on above:Performed By: #### INSULT #### [facility] [address] [place] [address] Dr. Marla TranUAL DIFF REQNONormalThe [facility] HospitalCommclaren [facility] on above: Performed By: #### INSULT #### [facility] [address] [place] [address] Dr. Marla Mcgrath (RBC) [Entitic mass]33.8 mhZynfkf63.7-34.0The [facility] HospitalComment on above:Performed By: #### INSULT #### [facility] [address] [place] [address] Dr. Marla Mcgrath (RBC) [Mass/Vol]32.9 g/cUDtgths94.9-35.2The [facility] Centerment on above:Performed By: #### INSULT #### [facility] [address] [place] [address] Dr. Marla Mcgrath (RBC) [Entitic vol]102.8 fLCritically high81.0-99.0The [facility] HospitalComment on above:Performed By: #### INSULT #### [facility] [address] [address] [address] Marla Morales #0.5 103/ulNormal0.3-0.8The [facility] HospitalComment on above:Performed By: #### INSULT #### [facility] [address] [address] [address] Marla Messinaocytes/100 WBC (Bld)6.9 %Normal1.7-12.0The [facility] Comment on above:Performed By: #### INSULT #### [facility] [address] [place] [address] Dr. Marla Dave #4.7 103/ulNormal1.4-6.5The [facility] HospitalComment on above:Performed By: #### INSULT #### [facility] [address] [place] [address] Dr. Marla Mcallisterutrophils/100 WBC (Bld)65.1 %Ejgyib46.0-75.0The [facility] HospitalComment on above:Performed By: #### INSULT #### [facility] [address] [place] [address] Dr. Marla Walden mean volume (Bld) [Entitic vol]9.3 fLCritically low 9.5-13.5The [facility] HospitalComment on above:Performed By: #### INSULT #### [facility] [address] [place] [address] Dr. Marla VarnerPLT200 103/euXzwvoo913-123Pti [facility] HospitalComment on above: Performed By: #### INSULT #### [facility] [address] [place] [address] Dr. Marla VarnerRBC4.32 106/ulNormal4.20-5.40The [facility] HospitalComment on above:Performed By: #### INSULT #### [facility] [address] [place] [address] Dr. Marla VarnerWBC7.2 103/ulNormal4.0-11.0The [facility] HospitalComment on above: Performed By: #### INSULT #### [facility] [address] [place] [address] Dr. Marla Love T3on 61-62-7792VAFE T32.20 pg/mlLNormal2.18-3.98The [facility] Centerment on above:Performed By: #### TSH #### [facility] [address] [place] [address] Dr. Marla Love T4on 92-65-6902Lqov T4 [Mass/Vol]1.30 ng/dLNormal0.76-1.46 The [facility] HospitalComment on above:Performed By: #### TSH #### [facility] [address] [place] [address] Dr. Marla Solis 14(COMP METB)on 94-69-5413Dzojxpy [Mass/Vol]3.4 g/dLNormal 3.4-5.0The [facility] HospitalComment on above:Performed By: #### CMP, URIC #### [facility] [address] [place] [address] Dr. Marla VarnerAlbumin/Globulin [Mass ratio]0.9 {ratio}NormalThe [facility] Centerment on above:Performed By: #### CMP, URIC #### [facility] [address] [place] [address] Dr. Marla Bynum [Catalytic activity/Vol]92 U/GWiajjm33-324Nmv [facility] Centerment on above:Performed By: #### CMP, URIC #### [facility] [address] [place] [address] Dr. Marla Altamirano [Catalytic activity/Vol]17 U/FGobnjg19-63Yhm [facility] Centerment on above:Performed By: #### CMP, URIC #### [facility] [address] [place] [address] Dr. Marla Rowell gap [Moles/Vol]10.7 mmol/LNormalThe [facility] on above:Performed By: #### CMP, URIC #### [facility] [address] [address] [address] Marla VarnerAST [Catalytic activity/Vol]17 U/STrydap16-72Afr [facility] HospitalComment on above:Performed By: #### CMP, URIC #### [facility] [address] [address] [address] Marla VarnerBilirubin [Mass/Vol]0.4 mg/dLNormal0.2-1.0The [facility] Comment on above:Performed By: #### CMP, URIC #### [facility] [address] [place] [address] Dr. Marla VarnerCalcium [Mass/Vol]8.8 mg/dLNormal8.5-10.1The [facility] Comment on above:Performed By: #### CMP, URIC #### [facility] [address] [place] [address] Dr. Marla VarnerChloride [Moles/Vol]101 mmol/DViqkbf90-691Mvm [facility] Comment on above:Performed By: #### CMP, URIC #### [facility] [address] [place] [address] Dr. Marla VarnerCO2 [Moles/Vol]32.5 mmol/LCritically high21.0-32.0The [facility] HospitalComment on above:Performed By: #### CMP, URIC #### [facility] [address] [place] [address] Dr. Marla VarnerCreatinine [Mass/Vol]0.72 mg/dLNormal0.55-1.02The [facility] HospitalComment on above:Performed By: #### CMP, URIC #### [facility] [address] [place] [address] Dr. Marla SchultzGFR-AF TAJIK>60Normal>=60The [facility] HospitalComment on above:Performed By: #### CMP, URIC #### [facility] [address] [place] [address] Dr. Marla SchultzGFR-NON AF TAJIK>60Normal>=60The [facility] HospitalComment on above:Performed By: #### CMP, URIC #### [facility] [address] [address] [address] Marla VarnerGlobulin (S) [Mass/Vol]3.8 g/dLNormMercy Health St. Charles HospitalComment on above:Performed By: #### CMP, URIC #### [facility] [address] [address] [address] Marla VarnerGlucose [Mass/Vol]101 mg/fPCreqfm89-108Uhm [facility] Comment on above:Performed By: #### CMP, URIC #### [facility] [address] [address] [address] Marla VarnerPotassium [Moles/Vol]4.2 mmol/LNormal3.5-5.1The [facility] Comment on above:Performed By: #### CMP, URIC #### [facility] [address] [address] [address] Marla VarnerProtein [Mass/Vol]7.2 g/dLNormal6.4-8.2The [facility] Comment on above:Performed By: #### CMP, URIC #### [facility] [address] [address] [address] Marla VarnerSodium [Moles/Vol]140 mmol/ZBauend054-924Hfm [facility] Comment on above:Performed By: #### CMP, URIC #### [facility] [address] [address] [address] Marla VarnerUrea nitrogen [Mass/Vol]11.0 mg/dLNormal7.0-18.0The [facility] HospitalComment on above:Performed By: #### CMP, URIC #### [facility] [address] [address] [address] Marla Vital nitrogen/Creatinine [Mass ratio]15.3 mg/mgNoOhioHealth Hardin Memorial HospitalComment on above:Performed By: #### CMP, URIC #### [facility] [address] [address] [address] Marla Noel RATE WESTERGRENon 74-74-4754FLQ RATE51 mm/hrCritically high <=30The [facility] HospitalComment on above:Performed By: #### SEDR #### [facility] [address] [place] [address] Dr. Marla PattonHocharlene 00-38-0582KBQ9.307 uIU/mLNormal0.358-3.740The [facility] HospitalComment on above:Performed By: #### TSH #### [facility] [address] [place] [address] Dr. Marla VarnerURIC ACID SERUMon 75-12-7470Lhmes [Mass/Vol]3.2 mg/dLNormal 2.6-6.0The [facility] HospitalComment on above:Performed By: #### CMP, URIC #### [facility] [address] [place] [address] Dr. Marla VarnerINSULIN FREE AND TOTALon 08-55-3602Pxcn Myphkom21 uU/mLNormalOhiohealth Marion General HospitalComment on above:Result Comment: Reference Range: Pubertal Children and Adults (fasting): 0 - 17Performed By: #### INSULT #### [facility] [address] [place] [address] Dr. Marla VarnerTotal Vyriila80 uU/mLNormalOhiohealth Marion General HospitalCommclaren bay region on above: Result Comment: Non-Diabetic: In the absence of insulin-binding antibodies, the free and total [...] developed and its performance characteristics determined by [employer]. It has not been cleared or approved by the Food and Drug Administration.Performed By: #### INSULT #### [facility] [address] [place] [address] Dr. Marla VarnerCBC AUTO DIFFon [id number] #0.0 103/ulNormal0.0-0.1The [facility] on above:Performed By: #### TSH #### [facility] [address] [address] [address] Marla VarnerBasophils/100 WBC (Bld)0.3 %Normal0.2-2.0The [facility] Comment on above:Performed By: #### TSH #### [facility] [address] [address] [address] Marla Velasquez #0.2 103/ulNormal0.0-0.7The [facility] HospitalComment on above: Performed By: #### TSH #### [facility] [address] [place] [address] Dr. Marla Schultzosinophils/100 WBC (Bld)2.7 %Normal0.9-7.0The [facility] Comment on above:Performed By: #### TSH #### [facility] [address] [place] [address] Dr. Marla Schultzrythrocyte distribution width (RBC) [Ratio]14.8 %Ufrpnp96.0-15.0 The [facility] HospitalComment on above:Performed By: #### TSH #### [facility] [address] [place] [address] Dr. Marla VarnerHematocrit (Bld) [Volume fraction]47.6 %Cpfpjf54.0-48.0The [facility] HospitalComment on above:Performed By: #### TSH #### [facility] [address] [place] [address] Dr. Marla VarnerHemoglobin (Bld) [Mass/Vol]15.4 g/pMCwazyt87.0-16.0The [facility] HospitalComment on above:Performed By: #### TSH #### [facility] [address] [place] [address] Dr. Marla Quezada #0.03 10e3/ulNormal0.00-0.03The [facility] HospitalComment on above:Performed By: #### TSH #### [facility] [address] [place] [address] Dr. Marla Quezada %0.4 %Normal0.0-0.5The [facility] HospitalComment on above: Performed By: #### TSH #### [facility] [address] [address] [address] Marla Irby #1.6 103/ulNormal1.2-3.8The [facility]Commcl[facility] on above:Performed By: #### TSH #### [facility] [address] [place] [address] Dr. Marla Ibarrahocytes/100 WBC (Bld)21.1 %Iugnfi44.5-60.0The [facility]Commclaren [facility] on above:Performed By: #### TSH #### [facility] [address] [place] [address] Dr. Marla Rivas DIFF REQNONormalThe [facility] HospitalCommclaren [facility] on above: Performed By: #### TSH #### [facility] [address] [place] [address] Dr. Marla Mcgrath (RBC) [Entitic mass]34.2 pgCritically high26.7-34.0The [facility] on above:Performed By: #### TSH #### [facility] [address] [place] [address] Dr. Marla Mcgrath (RBC) [Mass/Vol]32.4 g/sSVyttbr83.9-35.2The [facility] on above:Performed By: #### TSH #### [facility] [address] [place] [address] Dr. Marla Mcgrath (RBC) [Entitic vol]105.8 fLCritically high81.0-99.0The [facility] on above:Performed By: #### TSH #### [facility] [address] [place] [address] Dr. Marla Morales #0.5 103/ulNormal0.3-0.8The [facility] on above:Performed By: #### TSH #### [facility] [address] [place] [address] Dr. Marla Messinaocytes/100 WBC (Bld)7.4 %Normal1.7-12.0The [facility] Comment on above:Performed By: #### TSH #### [facility] [address] [place] [address] Dr. Marla McallisterUT #5.0 103/ulNormal1.4-6.5The [facility] HospitalComment on above:Performed By: #### TSH #### [facility] [address] [place] [address] Dr. Marla Mcallisterutrophils/100 WBC (Bld)68.1 %Ndodgz34.0-75.0The [facility] HospitalComment on above:Performed By: #### TSH #### [facility] [address] [place] [address] Dr. Marla Walden mean volume (Bld) [Entitic vol]10.5 fLNormal9.5-13.5The [facility] HospitalComment on above:Performed By: #### TSH #### [facility] [address] [place] [address] Dr. Marla VarnerPLT207 103/ydNvjwqq477-014Ryk [facility] HospitalComment on above: Performed By: #### TSH #### [facility] [address] [place] [address] Dr. Marla VarnerRBC4.50 106/ulNormal4.20-5.40The [facility] HospitalComment on above:Performed By: #### TSH #### [facility] [address] [place] [address] Dr. Marla VarnerWBC7.3 103/ulNormal4.0-11.0The [facility] HospitalComment on above: Performed By: #### TSH #### [facility] [address] [place] [address] Dr. Marla Love T4on 82-53-6065Rkku T4 [Mass/Vol]1.75 ng/dLCritically high 0.76-1.46The [facility] HospitalComment on above:Performed By: #### TSH #### [facility] [address] [place] [address] Dr. Yilan ChangPROF 14(COMP METB)on 18-18-5054Ygarhgq [Mass/Vol]3.7 g/dLNormal 3.4-5.0The [facility] HospitalComment on above:Performed By: #### INSULT #### [facility] [address] [place] [address] Dr. Marla VarnerAlbumin/Globulin [Mass ratio]1.0 {ratio}NormalThe [facility] HospitalComment on above:Performed By: #### INSULT #### [facility] [address] [place] [address] Dr. Marla GarcíaP [Catalytic activity/Vol]99 U/GBiydlz90-777Vpx [facility] HospitalComment on above:Performed By: #### INSULT #### [facility] [address] [place] [address] Dr. Marla GarcíaT [Catalytic activity/Vol]25 U/ZBdicdh90-09Hhr [facility] HospitalComment on above:Performed By: #### INSULT #### [facility] [address] [place] [address] Dr. Marla Farraron gap [Moles/Vol]15.7 mmol/LNormalThe [facility] Comment on above:Performed By: #### INSULT #### [facility] [address] [place] [address] Dr. Marla VarnerAST [Catalytic activity/Vol]20 U/QYoygrt27-13Uap [facility] HospitalComment on above:Performed By: #### INSULT #### [facility] [address] [place] [address] Dr. Marla VarnerBilirubin [Mass/Vol]0.4 mg/dLNormal0.2-1.0The [facility] Comment on above:Performed By: #### INSULT #### [facility] [address] [place] [address] Dr. Marla VarnerCalcium [Mass/Vol]8.9 mg/dLNormal8.5-10.1The [facility] Comment on above:Performed By: #### INSULT #### [facility] [address] [place] [address] Dr. Marla VarnerChloride [Moles/Vol]99 mmol/FQjcfxy23-534Thi [facility] Comment on above:Performed By: #### INSULT #### [facility] [address] [place] [address] Dr. Marla VarnerCO2 [Moles/Vol]25.3 mmol/ETyagdr87.0-32.0The [facility] Hospital Comment on above:Performed By: #### INSULT #### [facility] [address] [place] [address] Dr. Marla VarnerCreatinine [Mass/Vol]0.80 mg/dLNormal0.55-1.02The [facility] HospitalComment on above:Performed By: #### INSULT #### [facility] [address] [place] [address] Dr. Marla SchultzGFR-AF TAJIK>60Normal>=60The [facility] HospitalComment on above:Performed By: #### INSULT #### [facility] [address] [place] [address] Dr. Marla SchultzGFR-NON AF TAJIK>60Normal>=60The [facility] HospitalComment on above:Performed By: #### INSULT #### [facility] [address] [place] [address] Dr. Marla VarnerGlobulin (S) [Mass/Vol]3.6 g/dLNormalThe [facility] HospitalComment on above:Performed By: #### INSULT #### [facility] [address] [place] [address] Dr. Marla VarnerGlucose [Mass/Vol]113 mg/dLCritically otax56-455Uqk [facility] HospitalComment on above:Performed By: #### INSULT #### [facility] [address] [place] [address] Dr. Marla VarnerPotassium [Moles/Vol]4.0 mmol/LNormal3.5-5.1The [facility] Comment on above:Performed By: #### INSULT #### [facility] [address] [place] [address] Dr. Marla VarnerProtein [Mass/Vol]7.3 g/dLNormal6.4-8.2The [facility] Comment on above:Performed By: #### INSULT #### [facility] [address] [place] [address] Dr. Marla VarnerSodium [Moles/Vol]136 mmol/ZKjodzy151-024Jsk [facility] Comment on above:Performed By: #### INSULT #### [facility] [address] [place] [address] Dr. Marla VarnerUrea nitrogen [Mass/Vol]10.0 mg/dLNormal7.0-18.0The [facility] HospitalComment on above:Performed By: #### INSULT #### [facility] [address] [place] [address] Dr. Marla Vital nitrogen/Creatinine [Mass ratio]12.5 mg/mgNormalThe [facility] HospitalComment on above:Performed By: #### INSULT #### [facility] [address] [place] [address] Dr. Marla Noel RATE WESTERGRENon 53-19-1217GGG RATE34 mm/hrCritically high <=30The [facility] HospitalComment on above:Performed By: #### TSH #### [facility] [address] [place] [address] Dr. Marla Joyce 63-09-5750JDD8.152 uIU/mLCritically low0.358-3.740The [facility] HospitalComment on above:Performed By: #### TSH #### [facility] [address] [place] [address] Dr. Marla VarnerURIC ACID SERUMon 08-78-6358Kcmnn [Mass/Vol]3.3 mg/dLNormal 2.6-6.0The [facility] HospitalComment on above:Performed By: #### INSULT #### [facility] [address] [place] [address] Dr. Marla Lowe AUTO DIFFon 65-92-9480BGZN #0.0 103/ulNormal0.0-0.1The [facility] HospitalComment on above:Performed By: #### TSH #### [facility] [address] [place] [address] Dr. Marla VarnerBasophils/100 WBC (Bld)0.1 %Critically low0.2-2.0The [facility] Centerment on above:Performed By: #### TSH #### [facility] [address] [place] [address] Dr. Marla Velasquez #0.4 103/ulNormal0.0-0.7The [facility] HospitalComment on above: Performed By: #### TSH #### [facility] [address] [place] [address] Dr. Marla Schultzosinophils/100 WBC (Bld)5.1 %Normal0.9-7.0The [facility] Comment on above:Performed By: #### TSH #### [facility] [address] [place] [address] Dr. Marla Schultzrythrocyte distribution width (RBC) [Ratio]14.5 %Rbkggm53.0-15.0 The [facility] HospitalComment on above:Performed By: #### TSH #### [facility] [address] [place] [address] Dr. Marla VarnerHematocrit (Bld) [Volume fraction]45.7 %Thyfvl08.0-48.0The [facility] Centerment on above:Performed By: #### TSH #### [facility] [address] [place] [address] Dr. Marla VarnerHemoglobin (Bld) [Mass/Vol]14.6 g/wSJlehur55.0-16.0The [facility] Centerment on above:Performed By: #### TSH #### [facility] [address] [place] [address] Dr. Malra Quezada #0.03 10e3/ulNormal0.00-0.03The [facility] HospitalComment on above:Performed By: #### TSH #### [facility] [address] [place] [address] Dr. Marla Quezada %0.4 %Normal0.0-0.5The [facility] HospitalComment on above: Performed By: #### TSH #### [facility] [address] [address] [address] Marla Irby #0.9 103/ulCritically low1.2-3.8The [facility] Comment on above:Performed By: #### TSH #### [facility] [address] [address] [address] Marla Ibarrahocytes/100 WBC (Bld)11.3 %Critically low20.5-60.0The [facility] HospitalComment on above:Performed By: #### TSH #### [facility] [address] [address] [address] Marla Rivas DIFF REQNONormalThe [facility] HospitalComment on above: Performed By: #### TSH #### [facility] [address] [place] [address] Dr. Marla Mcgrath (RBC) [Entitic mass]33.4 wuVaydjb55.7-34.0The [facility] HospitalComment on above:Performed By: #### TSH #### [facility] [address] [place] [address] Dr. Marla Mcgrath (RBC) [Mass/Vol]31.9 g/vYUfvxqu78.9-35.2The [facility] HospitalComment on above:Performed By: #### TSH #### [facility] [address] [place] [address] Dr. Marla Mcgrath (RBC) [Entitic vol]104.6 fLCritically high81.0-99.0The [facility] HospitalComment on above:Performed By: #### TSH #### [facility] [address] [address] [address] Marla Morales #0.3 103/ulNormal0.3-0.8The [facility] HospitalComment on above:Performed By: #### TSH #### [facility] [address] [place] [address] Dr. Marla Messinaocytes/100 WBC (Bld)3.9 %Normal1.7-12.0The [facility] Comment on above:Performed By: #### TSH #### [facility] [address] [address] [address] Marla Dave #6.1 103/ulNormal1.4-6.5The [facility] HospitalComment on above:Performed By: #### TSH #### [facility] [address] [place] [address] Dr. Marla Mcallisterutrophils/100 WBC (Bld)79.2 %Critically high43.0-75.0The [facility] HospitalComment on above:Performed By: #### TSH #### [facility] [address] [place] [address] Dr. Marla VarnerPlatelet mean volume (Bld) [Entitic vol]10.4 fLNormal9.5-13.5The [facility] HospitalComment on above:Performed By: #### TSH #### [facility] [address] [place] [address] Dr. Marla VarnerPLT195 103/jbFzwpzn523-166Mmw [facility] HospitalComment on above: Performed By: #### TSH #### [facility] [address] [place] [address] Dr. Marla VarnerRBC4.37 106/ulNormal4.20-5.40The [facility] Centerment on above:Performed By: #### TSH #### [facility] [address] [place] [address] Dr. Marla VarnerWBC7.7 103/ulNormal4.0-11.0The [facility] HospitalComment on above: Performed By: #### TSH #### [facility] [address] [place] [address] Dr. Marla VarnerPROF 14(COMP METB)on 91-70-2499Nwgnfxk [Mass/Vol]3.3 g/dL Critically low3.4-5.0The [facility] HospitalComment on above:Performed By: #### URIC, CMP #### [facility] [address] [place] [address] Dr. Yilan ChangAlbumin/Globulin [Mass ratio]0.8 {ratio}NormalThe [facility] HospitalComment on above:Performed By: #### URIC, CMP #### [facility] [address] [place] [address] Dr. Marla Bynum [Catalytic activity/Vol]97 U/VKjsjmn96-117Eyi [facility] HospitalComment on above:Performed By: #### URIC, CMP #### [facility] [address] [place] [address] Dr. Marla Altamirano [Catalytic activity/Vol]26 U/LQdiwyt93-51Wke [facility] HospitalComment on above:Performed By: #### URIC, CMP #### [facility] [address] [place] [address] Dr. Marla Rowell gap [Moles/Vol]18.0 mmol/LNormalThe [facility] Comment on above:Performed By: #### URIC, CMP #### [facility] [address] [place] [address] Dr. Marla Reyes [Catalytic activity/Vol]17 U/JRvwzsi77-13Wcv [facility] Centerment on above:Performed By: #### URIC, CMP #### [facility] [address] [place] [address] Dr. Marla VarnerBilirubin [Mass/Vol]0.5 mg/dLNormal0.2-1.0The [facility] Comment on above:Performed By: #### URIC, CMP #### [facility] [address] [place] [address] Dr. Marla VarnerCalcium [Mass/Vol]8.8 mg/dLNormal8.5-10.1[facility] Comment on above:Performed By: #### URIC, CMP #### [facility] [address] [place] [address] Dr. Marla VarnerChloride [Moles/Vol]100 mmol/LCoplky26-913Kif [facility] Comment on above:Performed By: #### URIC, CMP #### [facility] [address] [place] [address] Dr. Marla VarnerCO2 [Moles/Vol]25.3 mmol/RDukfdc11.0-32.0The [facility] Comment on above:Performed By: #### URIC, CMP #### [facility] [address] [place] [address] Dr. Marla VarnerCreatinine [Mass/Vol]0.95 mg/dLNormal0.55-1.02The [facility] HospitalComment on above:Performed By: #### URIC, CMP #### [facility] [address] [address] [address] Marla SchultzGFR-AF TAJIK>60Normal>=60The [facility] HospitalComment on above:Performed By: #### URIC, CMP #### [facility] [address] [place] [address] Dr. Marla SchultzGFR-NON AF UYTKOUYP47 mL/min/1.60h3Mkubmhdqzn low>=60The [facility] HospitalComment on above:Performed By: #### URIC, CMP #### [facility] [address] [place] [address] Dr. Marla VarnerGlobulin (S) [Mass/Vol]3.9 g/dLNormalThe [facility] HospitalComment on above:Performed By: #### URIC, CMP #### [facility] [address] [place] [address] Dr. Marla VarnerGlucose [Mass/Vol]253 mg/dLCritically ujap06-378Jjn [facility] HospitalComment on above:Performed By: #### URIC, CMP #### [facility] [address] [place] [address] Dr. Marla VarnerPotassium [Moles/Vol]4.3 mmol/LNormal3.5-5.1The [facility] Comment on above:Performed By: #### URIC, CMP #### [facility] [address] [place] [address] Dr. Marla VarnerProtein [Mass/Vol]7.2 g/dLNormal6.4-8.2The [facility] Comment on above:Performed By: #### URIC, CMP #### [facility] [address] [place] [address] Dr. Marla Dowdium [Moles/Vol]139 mmol/ANrdjqv349-703Gwr [facility] Comment on above:Performed By: #### URIC, CMP #### [facility] [address] [place] [address] Dr. Marla Vital nitrogen [Mass/Vol]13.0 mg/dLNormal7.0-18.0The [facility] HospitalComment on above:Performed By: #### URIC, CMP #### [facility] [address] [place] [address] Dr. Marla Vital nitrogen/Creatinine [Mass ratio]13.6 mg/mgNormalThe [facility] HospitalComment on above:Performed By: #### URIC, CMP #### [facility] [address] [place] [address] Dr. Marla Noel RATE WESTERGRENon 88-96-6946KHS RATE35 mm/hrCritically high <=30The [facility] HospitalComment on above:Performed By: #### TSH #### [facility] [address] [place] [address] Dr. Marla Leavitt ACID SERUMon [id number] [Mass/Vol]3.6 mg/dLNormal 2.6-6.0The [facility] HospitalComment on above:Performed By: #### URIC, CMP #### [facility] [address] [place] [address] Dr. Marla VarnerXR DEXA BONE DENSITYon [id number] DEXA BONE DENSITYEXAMINATION: XR DEXA BONE DENSITY, 01/19/2022 10:33 AM [...] Electronically authenticated by: KALEIGH SUTHERLAND Date: 2022-01-19 11:23[facility] HospitalCNOVSPon [id number] (SP) Office (GYNOSA) --------EUNICE CASTILLO ([id number]) 1950 FDate Time Provider Department10/21/18 10:40 AM [...] vulvectomy (A) - High-grade squamousintraepithelial lesion (PURA 3,classic type), see comment.- HSIL focally involves the vaginal and anal inked margins; remainingmargins are negative.2. New proximal vaginal margin, excision (B) - Benign squamous mucosa.3. New left lateral margin, excision (C) - Benign squamous mucosa.TLP/george/11/02/16 ? ?COMMENT1. Multiple additional levels were examined. Dr. Marina Ng has reviewedselect slides from this case with concurrence.SUBJECTIVE/INTERVAL HISTORY: Eunice Casitllo reports that she feels well. Nofever or chills. No shortness of breath, cough, or chest pain. No incisionalredness, swelling, or drainage. Patient reports that her appetite is good. Noabdominal pain, nausea, vomiting, diarrhea, or constipation. No dysuria, grosshematuria, urinary frequency, urinary urgency, or incontinence. Her ECOGperformance status is zero (fully active, able to carry on all pre- diseaseperformance without restriction).Blaine Thompson MDOBJECTIVE:VITALS:BP 145/82 Pulse 82 [...] this office note were sent to:[place] [address]?CC:Yimi Montemayor DO (PCP)Referring Provider: BLAINE THOMPSON [[id number]]Allergies As of Date: 10/21/2018 Noted Allergy ReactionPENICILLINS [...] mg by mouth once daily* FOLIC ACID 1MG TABLET Take 1 mg by mouth once daily. ADALIMUMAB 40 MG/0.8 ML SUBCU* Inject 40 mg subcutaneouslye* OMEPRAZOLE 20 MG CAPSULE,CRISTEL* Take 20 mg by mouth once shoshana* CALCIUM POLYCARBOPHIL 625 MG * Take 625 mg by mouth once oc* CYANOCOBALAMIN (VIT B-12) 1,0* Inject 1,000 mcg intramuscula* ISVAIOIWVX903 MG CAPSULE Take 100 mg by mouth once oc* LISINOPRIL 10 MG TABLET Take 10 mg by mouth once shoshana* MULTIVITAMIN TABLET Take 1 tablet by mouth once d* CALTRATE 600 + D ORAL Take by mouth. 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 Vulva, modified-radical posterior vulvectomy (A) - High-grade squamousintraepithelial lesion (PURA 3, classictype), see comment.- HSIL focally involves the vaginal and anal inked margins; remainingmargins arenegative.2. New proximal vaginal margin, excision (B) - Benign squamous mucosa.3. New left lateral margin, excision (C) - Benign squamous mucosa.TLP/george/11/02/16 ? ?COMMENT1. Multiple additional levels were examined. Dr. Marina Ng has reviewedselect slides from this case with concurrence.SUBJECTIVE/INTERVAL HISTORY: Eunice Castillo reports that she feels well.No fever or chills. No shortness of breath, cough, or chest pain. Noincisional redness, swelling, or drainage. Patient reports that herappe tite is good. No abdominal pain, nausea, vomiting, diarrhea, orconstipation. No dysuria, gross hematuria, urinary frequency, urinaryurgency, or incontinence. Her ECOG performance status is zero (fullyactive, able to carry on all pre- disease performance without restriction).Blaine Thompson MDOBJECTIVE:VITALS:BP 145/82 Pulse 82 Temp 36.7 ?C (98 ?F) (Oral) Resp 18 Ht 165.1 cm (5' 5 ) Wt 121.9kg (268 lb 12.8 oz) SpO2 94% BMI44.73 [...] this office note were sent to:[place] [address]?CC:Yimi Montemayor DO (PCP)NormalMorrow County HospitalCNOVon 29-12-3772PQBPDgllzt Visit (GYNOSA) --------EUNICE CASTILLO ([id number]) 1950 FDate Time Provider Department04/15/18 8:00 AM BLAINE THOMPSON During your visit today, we recorded the following information about you: Temperature Pulse Respiration Blood pressure 98 degrees 78/minute 18/minute 168/73 Weight Height 121.7 kg 1.651 Milena Thompson MD 04/15/2018 8:25 AM SignedDATE OF SERVICE: April 15, 2018PROBLEM: Eunice Castillo presents for follow up.SURGERY AND DATE: 10/29/2016Modified radical posterior vulvectomyPATHOLOGY:FINAL DIAGNOSIS1.Vulva, modified-radical posterior vulvectomy (A) - High-grade squamousintraepithelial lesion (PURA 3, classic type), see comment.- HSIL focally involves the vaginal and anal inked margins; remainingmargins are negative.2. New proximal vaginal margin, excision (B) - Benign squamous mucosa.3. New leftlateral margin, excision (C) - Benign squamous mucosa.TLP/george/11/02/16 ? ?COMMENT1. Multiple additional levels were examined. Dr. Marina Ng has reviewedselect slides from this case with concurrence.SUBJECTIVE/INTERVAL HISTORY: Eunice Castillo reports that she feels well. Nofever or chills. No shortness of breath, cough, or chest pain. No incisionalredness, swelling, or drainage. Patient reports that her appetite is good. Noabdominal pain, nausea, vomiting, diarrhea, or constipation. No dysuria, grosshematuria, urinary frequency, urinary urgency, or incontinence. Her ECOGperformance status is zero (fully active, able to carry on all pre-diseaseperformance without restriction).Blaine Thompson MDO BJECTIVE:VITALS:There were no vitals taken for this visit.HEENT: [...] I advised her to follow with her power tong operator f or routine health and gynmaintenance exams3. 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 2 tabs dailyProblem List As Of Date 04/15/2018 Noted Resolved Morbid obesity (HCC) [E66.01] INVALID FOR* Other specified rheumatoid arthritis, multiple *INVALID FOR* Chronicidiopathic gout of multiple sites [M1A.*INVALID FOR* Gastroesophageal reflux disease without esophag*INVALID FOR* Smoker [F17.200] INVALID FOR* More... Status:Closed by BLAINE THOMPSON MD on 04/15/18[facility] 28-72-0641Qbgknst mass concHNO ID: [id number]: Blaine Maldonadoervice: (none)Author Type: PhysicianType: Progress NotesFiled: [...] - Benign squamous mucosa.TLP/george/11/02/16 ? ?COMMENT1. Multiple additionallevels were examined. Dr. Marina Ng has reviewedselect slides from this case with concurrence.SUBJECTIVE/INTERVAL HISTORY: Eunice Castillo reports that she feels well.No fever or chills. No shortnessof breath, cough, or chest pain. Noincisional redness, swelling, or drainage. Patient reports that herappetite is good. No abdominal pain, nausea, vomiting, diarrhea, orconstipation. No dysuria, gross hematuria, urinary frequency, urinaryurgency, or incontinence. Her ECOG performance status is zero(fullyactive, able to carry on all pre- disease performance without restriction).Blaine Thompson MDOBJECTIVE:VITALS:There were no [...] I advised her to follow with her power tong operator for routine health andgyn maintenance exams3. I will see her in 6 monthsBlaine Thompson MD, MPH25 min spent with the patient with >50% face to face counselingA letter and a copy of this office note were sent to:[place] [address]?CC:Yimi Montemayor DO (PCP)NormalMorrow County Hospital Vital Signs Date TimeVital SignValuePerforming UmkhpkzyuPzfnlqix06-27-6880 10:59-0400Body fmsreh390.1 Donna LARA Work Phone: [facility]09-29-2025 10:59-0400 Body mass index (BMI) [Ratio]40.4 kg/m2Lisa Milton LARA Work Phone: [facility]09-29-2025 10:59-0400 Body .7 [degF]Brunilda Aichholz [employer] Work Phone: [phone] [place], [place] 1773909-29-2025 10:59-0400 Body jvjyqd018.27 kgLisa Aichholz [employer] Work Phone: [phone] [place], [place] 1773909-29-2025 10:59-0400 Diastolic blood vonkwmzj41 mm[Hg]Brunilda Aichholz [employer] Work Phone: [phone]09-29-2025 10:59-0400 Heart rate63 /minLisa Aichholz [employer] Work Phone: [phone]09-29-2025 10:59-0400 Respiratory rate18 /minLisa Aichholz [employer] DEVELOPER[employer] Work Phone: [phone] [place], [place] 1773909-29-2025 10:59-0400 SaO2% (BldA) [Mass fraction]97 %Brunilda Aichholz [employer]EL[employer] Work Phone: [phone] [place], [place] 1773909-29-2025 10:59-0400 Systolic blood dapphanl152 mm[Hg]Brunilda Aichholz [employer]EL[employer] Work Phone: [phone] [place], [place] 1773903-05-2025 10:30-0500 Body .6 cmLisa Aichholz [employer] DEVELOPER Work Phone: [facility] HospitalHxtysvnmsg32-32-6220 10:30-0500Body mass index (BMI) [Ratio]41.95 kg/m2Lisa Aichholz [employer] DEVELOPER Work Phone: [facility] HospitalZnaexvsmnp96-26-9836 10:30-0500Body temperature 98.29 [degF]Brunilda Aichholz [employer] DEVELOPER Work Phone: [facility] HospitalKqlkzbhbjo79-92-4609 10:30-0500Body nizbua871.86 kgLisa Aichholz [employer] DEVELOPER Work Phone: [facility] HospitalXgwfsezcjv66-17-9181 10:30-0500Diastolic blood teowddnn47 mm[Hg]Brunilda Deonholz [employer] DEVELOPER Work Phone: [facility] HospitalDglzszhkzk26-57-8896 10:30-0500Heart rate74 /min Brunilda Deonholz [employer]TE[employer] DEVELOPER Work Phone: [facility] HospitalYessvvuixj06-68-6959 10:30-0500Respiratory rate22 /minLisa Deonholz [employer]TEGRATION DEVELOPER Work Phone: [facility] HospitalMmgiresrbq43-24-9328 10:30-7421YwE9% (BldA) [Mass fraction]95 %Brunilda Deonholz [employer]TE[employer]ATION DEVELOPER Work Phone: [facility] HospitalQpbkprhizo72-80-5552 10:30-0500Systolic blood iwlrhgqw229 mm[Hg]Brunilda Deonholz [employer]TE[employer]ATION DEVELOPER Work Phone: [facility] HospitalMvdtkfrrgv92-71-4709 09:17-0400Body mass index (BMI) [Ratio]41.76 kg/m2Lianasa Deonholz [employer] DEVELOPER Work Phone: [facility] HospitalKdkrpbjllc92-91-8928 09:17-0400Body temperature 97.3 [degF]Brunilda Deonholz [employer]TE[employer] DEVELOPER Work Phone: [facility] HospitalWenovyhotl47-76-5036 09:17-0400Body iwxdly088.36 kgLianasa Deonholz [employer] INTEGRATION DEVELOPER Work Phone: [facility] HospitalAlnllivbea88-96-5320 09:17-0400Diastolic blood ytwkkuum94 mm[Hg]Brunilda Deonholz ENTERPRISE INTEGRATION DEVELOPER Work Phone: [place] [phone] 09:17-0400Heart rate79 /min Brunilda Ramseyhholz ENTERPRISE INTEGRATION DEVELOPER Work Phone: [place] [phone] 09:17-1915QnP7% (BldA) [Mass fraction]94 %Brunilda Ramseyhholz ENTERPRISE INTEGRATION DEVELOPER Work Phone: [place] [phone] 09:17-0400Systolic blood wkrqaiey573 mm[Hg]Brunilda Milton ENTERPRISE INTEGRATION DEVELOPER Work Phone: [facility] Encounters Encounter DateEncounter TypeCare ProviderFacilityStart: 07-16-2025 End: 01-69-6598fjmxtajsdiUyxw J Aichholz ENTERPRISE INTEGRATION DEVELOPER-C Work Phone: [facility] Work Phone: Start: 07-16-2025 End: 02-56-3257Jqotggl encounter procedureBrunilda Rose ENTERPRISE INTEGRATION DEVELOPER-C-[facility] [place] Work Phone: Start: 10-04-4633Oigkqpk encounter procedureBrunilda Rose ENTERPRISE INTEGRATION DEVELOPER-C [facility] Phone: [facility] 01-23-2025 End: 41-90-2391Dmuwqnrsz Result EncounterGeneric External Data ProviderNOMS External Department UnsolicitedStart: 01-23-2025 End: 30-14-2671Hoavpqqxe Result EncounterGeneric External Data ProviderNOMS External Department UnsolicitedStart: 12-20-2024 End: 34-57-9514Nwtfzn flowsMargot Rose ENTERPRISE INTEGRATION DEVELOPER Work Phone: [facility] CW FMStart: 12-20-2024 End: 82-81-0583Umgvgx flowsMargot Rose ENTERPRISE INTEGRATION DEVELOPER Work Phone: [facility] FMStart: 12-20-2024 End: 51-66-5815Zlptibf encounter procedureLiana Milton ENTERPRISE INTEGRATION DEVELOPER Work Phone: [facility] FMComment on above:Encounter for subsequent annual wellness visit (AWV) in Medicare patient (Primary Dx); Morbid (severe) obesity due to excess calories (CMS/HCC); Body mass index (BMI) 40.0-44.9, adult (CMS/HCC); Rheumatoid arthritis with rheumatoid factor, unspecified (CMS/HCC); Malignant neoplasm of vagina (CMS/HCC); Polyneuropathy; Primary hypertension (CMS/HCC); Gastroesophageal reflux disease without esophagitis; Idiopathic chronic gout of multiple sites without tophus; Lower extremity edema; Age-related osteoporosis without current pathological fracture (CMS/HCC); Hypothyroidism, unspecified type (CMS/HCC); Chronic gout without tophus, unspecified cause, unspecified site; Hyperglycemia; Cigarette nicotine dependence without complicationStart: 12-20-2024 End: 04-57-2863hluywamjmzIWPM KINZAot AvailableStart: 10-16-2024 End: 04-98-5883Acxgmzmei Result EncounterGeneric External Data ProviderNOMS External Department UnsolicitedStart: 10-16-2024 End: 48-11-2582Vjcxwujjp Result EncounterGeneric External Data ProviderNOMS External Department UnsolicitedStart: 06-22-2024 End: 99-32-4670Bfljlpblo Result EncounterLisa Chavarriating ENTERPRISE INTEGRATION DEVELOPER Work Phone: [facility] External Department UnsolicitedStart: 06-22-2024 End: 83-65-2804Bonhfkstx Result EncounterLisa Chavarriafrankiez ENTERPRISE INTEGRATION DEVELOPER Work Phone: [facility] External Department UnsolicitedStart: 06-12-2024 End: 45-26-5844Eupxha flowsheetBrunilda Chavarriaholz ENTERPRISE INTEGRATION DEVELOPER Work Phone: noms CWM FMStart: 06-12-2024 End: 64-31-5368Xdhxwe flowsheetBrunilda Chavarriaholz ENTERPRISE INTEGRATION DEVELOPER Work Phone: [facility]oms CW FMStart: 06-12-2024 End: 25-85-8816Fzaexa outpatient visit 25 minutesLisa Chavarriaholz ENTERPRISE INTEGRATION DEVELOPER Work Phone: [facility]oms CWM FMComment on above:Primary hypertension (CMS/HCC) (Primary Dx); Morbid (severe) obesity due to excess calories (CMS/HCC); Body mass index (BMI) 40.0-44.9, adult (CMS/HCC); Malignant neoplasm of vagina (CMS/HCC); Gastroesophageal reflux disease without esophagitis; Lower extremity edema; Hypothyroidism, unspecified type (CMS/HCC); Tobacco user; Hyperglycemia; Polyneuropathy; Rheumatoid arthritis with positive rheumatoid factor, involving unspecified site ([facility]); Other fatigueStart: 06-12-2024 End: 46-37-7222mxpswhmfeiMSHZ JUAREZZNot AvailableStart: 44-78-8713Qhskqnj encounter procedureLisa Rose ENTERPRISE INTEGRATION DEVELOPER Work Phone: [facility] HealthcareStart: 49-63-9658Xicffkudi encounter [facility] - Medical OncologyStart: 01-12-2023 End: 21-52-0478ddtjgrybirBWU BRUNILDA AICHHOLZFacility:C2Urifn: 10-13-2022 End: 67-05-7950vkspaqeuoqDFT BRUNILDA RAMSEYHHOLZFacility:B7Wccsy: 07-21-2022 End: 63-97-8214llskuaxilbCYL BRUNILDA AICHHOLZFacility:E5Khicg: 04-21-2022 End: 00-11-5858ldkhxjfxevZC DOCTOR MISCFacility:K7Wkoat: 01-19-2022 End: 63-90-7137zmqidddynqWEX BRUNILDA AICHHOLZFacility:S2Bjuip: 10-21-2018 End: 67-83-0263Ulqglwp encounter procedureHAIDER [facility] Start: 04-15-2018 End: 25-72-8827Dswvpwo encounter procedureHAIUniversity Hospitals [facility] Procedures DateProcedureProcedure DetailPerforming ClinicianStart: 05-50-3326ESW CBC WITH AUTO DIFFGeneric External Data ProviderStart: 38-49-7950IghcxywuwfbHnji Aichholz ENTERPRISE INTEGRATION DEVELOPER Work Phone: Start: 70-69-8391TUT CBC WITH AUTO DIFFGeneric External Data ProviderStart: 67-30-3705DGH HEMOGLOBIN Y8PTmoo Milton ENTERPRISE INTEGRATION DEVELOPER Work Phone: Start: 38-03-0248AlnlgaypzndVmtv Aichholz ENTERPRISE INTEGRATION DEVELOPER Work Phone: Plan of Treatment DateCare ActivityDetailAuthorStart: 03-05-2026Medicare Annual Wellness (AWV) Medicare Annual Wellness (AWV)[facility] HealthcareStart: 31-54-7056Yfcidcdfk for malignant neoplasm of breastMammogramNOMS HealthcareStart: 56-89-0843Kxmqf screening for proteinDiabetes: Urine Protein ScreeningNOMS HealthcareComment on above:Postponed from 1969 (Other Medical Reasons)Start: 06-25-2025 End: 52-99-8058Crrdiov encounter wzdecadvt79/08/2025 9:20 AM EDT Office Visit [facility] [address] [place] [address] Brunilda Rose NP [address] [place] [address] [facility] FMStart: 66-69-0177Lwzpmapth vaccinationInfluenza Vaccine (Season Ended)N[facility]S HealthcareStart: 81-37-6535Ijzpwguav vaccination Influenza Vaccine (#1)NOMS HealthcareComment on above:Postponed from 06/18/2024 (Patient Refused)Start: 12-20-2024 End: 92-26-2485Gzyypoc encounter ewdkpzisl99/05/2025 10:30 AM EST Office Visit [facility] [address] [place] [address] Brunilda Rose, RHEA [address] [place] [address] Polyneuropathy (Primary Dx); Morbid (severe) obesity due to excess calories (CMS/HCC); Body mass index (BMI) 40.0-44.9, adult (CMS/HCC); Rheumatoid arthritis with rheumatoid factor, unspecified (CMS/HCC); Malignant neoplasm of vagina (CMS/HCC); Primary hypertension (CMS/HCC); Gastroesophageal reflux disease without esophagitis; Idiopathic chronic gout of multiple sites without tophus; Lower extremity edema; Age-related osteoporosis without current pathological fracture (CMS/HCC); Hypothyroidism, unspecified type (CMS/HCC); Encounter for subsequent annual wellness visit (AWV) in Medicare patient; Chronic gout without tophus, unspecified cause, unspecified site; Hyperglycemia; Cigarette nicotine dependence without complicationNOMS CWM FMComment on above: Polyneuropathy (Primary Dx); Morbid (severe) obesity due to excess calories (CMS/HCC); Body mass index (BMI) 40.0-44.9, adult (CMS/HCC); Rheumatoid arthritis with rheumatoid factor, unspecified (CMS/HCC); Malignant neoplasm of vagina (CMS/HCC); Primary hypertension (CMS/HCC); Gastroesophageal reflux disease without esophagitis; Idiopathic chronic gout of multiple sites without tophus; Lower extremity edema; Age-related osteoporosis without current pathological fracture ([facility]/HCC); Hypothyroidism, unspecified type ([facility]/HCC); Encounter for subsequent annual wellness visit (AWV) in Medicare patient; Chronic gout without tophus, unspecified cause, unspecified site; Hyperglycemia; Cigarette nicotine dependence without complicationStart: 02-26-2025Medicare Annual Wellness (AWV)Medicare Annual Wellness (AWV)NOMS HealthcareStart: 46-89-6242Jwecilhlj for malignant neoplasm of colonColorectal Cancer Screening NOMS HealthcareComment on above:Postponed from 1950 (Patient Refused) Start: 12-12-2024 End: 58-69-0732Rebrygm encounter jivzybbmc72/25/2025 10:00 AM EST Office Visit [facility] [address] [place] [address] Brunilda Rose NP [address] [place] [address] [facility] FMStart: 21-45-0525Ylcnklce screeningDiabetes: Retinopathy ScreeningNOMS HealthcareComment on above:Postponed from 1960 (Other Medical Reasons)Start: 28-85-2321Kntgi screening for proteinDiabetes: Urine Protein ScreeningNOMS HealthcareComment on above:Postponed from 1969 (Other Patient Reasons)Start: 34-40-6456Yjrnduzaf vaccinationInfluenza Vaccine (#1)[facility] HealthcareStart: 49-42-6176Ibcezvehs for malignant neoplasm of breast MammogramNOMS HealthcareStart: 06-12-2024 End: 73-34-2052Ayfaspp encounter pfiypzclb45/26/2024 9:20 AM EDT Office Visit [facility] [address] [place] [address] Brunilda Rose NP [address] [place] [address] Morbid (severe) obesity due to excess calories (CMS/HCC); Body mass index (BMI) 40.0-44.9, adult (CMS/HCC); Malignant neoplasm of vagina (CMS/HCC)[facility] CWM FMComment on above:Morbid (severe) obesity due to excess calories (CMS/HCC); Body mass index (BMI) 40.0-44.9, adult (CMS/HCC); Malignant neoplasm of vagina (CMS/HCC)Start: 82-92-3841Scgjn BMI ScreeningAdult BMI ScreeningProRiverside Methodist Hospitaltart: 59-86-6887GDVLY-19 Vaccine ( season)COVID-19 Vaccine ( season)[facility]: 89-17-7517Iwkztejzw vaccinationInfluenza VaccineCleveland Clinic Mercy Hospital SystemStart: 68-74-2308Grih Risk ScreeningFall Risk ScreeningFormerly [facility], [facility] Hospitaltart: 58-42-3331Luzypzcioafckj of varicella zoster vaccineZoster (Shingles) Vaccine (1 of 2)[facility] Hospitaltart: 31-23-4527QWoN,Tdap and Td Vaccines (1 - Tdap)DTaP,Tdap and Td Vaccines (1 - Tdap)[facility] SystemStart: 28-62-4534Uaswr screening for proteinDiabetes: Urine Protein ScreeningSALT [facility]KE [facility] HealthcareStart: 99-33-5619Ntodr BMI Follow Up PlanAdult BMI Follow Up Plan [facility]tart: 63-71-8600Pevdeuekxx ScreeningDepression Screening [facility] Hospitaltart: 91-15-6257Hsypquu ScreeningTobacco Screening [facility] Hospitaltart: 36-59-7923Anjethzh screeningDiabetes: Retinopathy ScreeningSALT LAKE REGIONAL [facility] HealthcareStart: 78-38-2259Szusdtshia A1c measurementDiabetes: Hemoglobin B2HKPDUScotland County Memorial HospitalStart: 1950Medicare Annual Wellness Visit Medicare Annual Wellness VisitFormerly [facility], [facility] Hospitaltart: 94-21-4452Ytkcmjnke for malignant neoplasm of colonSALT LAKE REGIONAL [facility]ICAL [facility] Healthcare Immunizations Immunization DateImmunizationNotesCare AfhrwhtxOvlfwsfe83-84-5794Fffyqjtiv, Seasonal, Quadrivalent, AdjuvantedLisa Aichholz ENTERPRISE INTEGRATION DEVELOPER Work Phone: [facility] HospitalEarzdphizv69-02-5096GXBI-EXD-3 (COVID-19) vaccine, mRNA, spike protein, LNP, PF, india-sucrose, 30 mcg/0.3 mLLisa Aichholz ENTERPRISE INTEGRATION DEVELOPER Work Phone: [phone] [place], [place] [address]Qcbgkssgqm03-72-0514iwdagjvat virus vaccine, unspecified formulationLisa Aichholz ENTERPRISE INTEGRATION DEVELOPER Work Phone: [phone] [place], [place] [address]Rdydcmslje46-06-5589Vpxbwrqns, Seasonal, Quadrivalent, AdjuvantedLisa Aichholz ENTERPRISE INTEGRATION DEVELOPER Work Phone: [phone] [place], [place] [address]Hdnrtyyxmg85-68-2205PELQ-ZAU-8 (COVID-19) vaccine, mRNA, spike protein, LNP, bivalent, preservative free, 30 mcg/0.3 mL dose, india-sucrose formulationLisa Aichholz ENTERPRISE INTEGRATION DEVELOPER Work Phone: [phone] [place], [place] [address]Rtodgcmfjr48-07-3265pbvlabkdq virus vaccine, unspecified formulationPaula [facility]11-24-2021Pfizer Purple Cap SARS-CoV-2 VaccinationLisa Aichholz ENTERPRISE INTEGRATION DEVELOPER Work Phone: [phone] [place], [place] [address]Fdnaaltrfb14-79-3064tspjokxsqvse polysaccharide vaccine, 23 valentLisa Aichholz ENTERPRISE INTEGRATION DEVELOPER Work Phone: [phone] [place], [place] [address]Rwwaimiwpp47-29-8150Foladyssl, Seasonal, Quadrivalent, AdjuvantedLisa Aichholz ENTERPRISE INTEGRATION DEVELOPER Work Phone: [phone] [place], [place] [address]Jjljeozgvg35-98-5041Rpiyty Purple Cap SARS-CoV-2 VaccinationLisa Aichholz ENTERPRISE INTEGRATION DEVELOPER Work Phone: [phone] [place], [place] [address]Mnrbilxsty29-59-4374Izrabb Purple Cap SARS-CoV-2 VaccinationLisa Aichholz ENTERPRISE INTEGRATION DEVELOPER Work Phone: noUniversity of Missouri Children's HospitalEwrttimjmn35-78-6805Bturctckc, Seasonal, Quadrivalent, AdjuvantedLisa Deonholz ENTERPRISE INTEGRATION DEVELOPER Work Phone: noUniversity of Missouri Children's HospitalYidmgzwbfl85-48-0050tefcsoyukaxc conjugate vaccine, 13 valentLisa Deonholz ENTERPRISE INTEGRATION DEVELOPER Work Phone: [facility] Healthcare Payers DatePayer CategoryPayerPolicy [id number] Health InsuranceMEDICAL MUTUAL Member Subscriber Plan / Payer (Effective 2021-Present) Name: Eunice Castillo Rick Relation to Subscriber: Self Name: Eunice Castillo Rick ID: Not on file Type: Not on file Address: [place] [id number] 2015Medicare [id number] [id number] [id number] 1960 [id number] 2.840.1.923849.3.579.2.593 [id number] 2.16.840.1.567334.3.57[id number] 2.16.840.1.189531.3.57[id number] 2.0.1.016522.3.57[id number] 2.16.840.1.129350.3.57[id number] 2..840.1.488635.3.57[id number] 2..840.1.787784.3.57[id number] 2.0.1.473664.3.57[id number] 2..840.1.138076.3.579.2.1259Private Health InsuranceKaiser Foundation [id number] Social History DateTypeDetailFacilityStart: 10-31-2019 End: 74-75-0850Etyrasx smoking status NHISSmokes tobacco dailySumma Health Akron CampusHistory of tobacco useCigarette SmokerCleveland Clinic Mercy Hospital SystemStart: 10-31-2019 End: 00-95-1840Fwlrmpljsg smoked current (pack per day) - Toiolbbx6MDMO HealthcareStart: 74-17-0618Plemcos use and exposureSmokeless tobacco non-user [facility] Tapvalue SystemStart: 11-13-2020 End: 42-61-4018Geglild intakeLifetime non-drinker (finding)[facility] SystemStart: 08-16-2019 End: 62-45-7864Rqelffh Use Disorder Identification Test - Consumption [AUDIT-C] [facility] HealthcareFrequency of Alcohol ConsumptionNeOhioHealth Van Wert Hospital System Start: 87-93-6393Oxo Assigned At BirthNot on fileSumma Health Akron CampusWithin the last year, have you been afraid of your partner or ex-partner?NoNOMS HealthcareDo you belong to any clubs or organizations such as hinduism groups, unions, fraternal or athletic groups, or school groups?YesNOMS HealthcareAre you now , , , , never or living with a partner?MarriedNOMS HealthcareHow often to you have a drink containing alcohol? NeverNOMS HealthcareDo you feel stress - tense, restless, nervous, or anxious, or unable to sleep at night because yourmind is troubled all the time - these days [OSQ]Only a littleNOMS Healthcare(I/We) worried whether (my/our) food would run out before (I/we) got money to buy more.Never trueNOMS HealthcareStart: 71-94-1507Mosznvb Commentcaffine: 4 cups dailyNOMS HealthcareSexFemale (finding) [facility] Hospitaltart: 35-85-9283Kyf Assigned At [facility] History of Present illness Narrative 12-20-2024 Note Date & MqpoHrinCklnbozz03-15-0405 History of Present illness Narrative* IBIS RAYA - 12/20/2024 10:30 AM EST 138/80- wrist cuff 74- heart rate Pt would like to have a refill on everything most of them have only 1 left * Brunilda Rose NP - 12/20/2024 10:30 AM EST Images from the original note were not [...] Any Hospitalizations in the last year:none Specialist:Rheumatology, PLANT ACCOUNTANT HCPOA/Living Will:yes Concerns: Thyroid Problem Presents for [...] compliance problems. There is no history of CAD/OK, heart failure or PVD. Identifiable causesof hypertension include a thyroid problem. SUBJECTIVE: MEDICATIONS: [...] 12/13/2023 Heel spur, left 12/13/2023 HTN (hypertension) ([facility]) 12/13/2023 Hyperglycemia 12/13/2023 Hypothyroid ([facility]) 12/13/2023 Lower extremity edema 12/13/2023 Morbid obesity with body mass index (BMI) of 40.0 to 49.9 ([facility]) 12/13/2023 Non-compliant patient 12/13/2023 Osteoarthritis 12/13/2023 Osteoporosis ([facility]) 12/13/2023 Polyneuropathy 12/13/2023 RA (rheumatoid arthritis) ([facility]) 12/13/2023 Tobacco user 12/13/2023 Vaginal cancer ([facility]) 12/13/2023 Vitamin B12 deficiency 12/13/2023 Past Surgical [...] Visit Body mass index (BMI) 40.0-44.9, adult ([facility]) Chronic idiopathic gout of multiple sites Takes [...] gabapentin (Neurontin) 300 MG capsule HTN (hypertension) ([facility]) Please check blood pressure daily and record DASH diet Limit caffeine Take medication as directed Contact office if chest pain, pressure, dizziness, shortness of breath, swelling legs Recommend slow position changes Current meds: lisinopril, and lasix Relevant Medications lisinopril 10 MG tablet Malignant neoplasm of vagina ([facility]) Osteoporosis ([facility]) DEXA was 05/10, -3.0, Current med fosamax Lower extremity edema Lasix Limit sodium, elevate feet as much as possible Check labs yearly and prn Relevant Medications furosemide (Lasix) 40 MG tablet potassium chloride CR (Klor-Con) 10 MEQ ER tablet Morbid (severe) obesity due to excess calories ([facility]) Discussed with patient their BMI (actual, verses recommended). We have also discussed lifestyle modifications: attempts to perform physical activity as chronic conditions allow, also to monitor dietary intake: increasing protein/fruits/veggies and lowering carb intake (unless contraindicated). Limit sodas, juices, and sugary drinks. Hypothyroid ([facility]) Current med on levothyroxine Check labs yearly, prn dose changes, changes in symptoms Relevant Medications levothyroxine (Synthroid, Levoxyl) 150 MCG tablet Rheumatoid arthritis with rheumatoid factor, unspecified ([facility]) Continue with dr cardenas Current meds: humira, [...] of the risks of continued smoking: stroke, OK, all forms of cancer, lung disease, and . Options for quitting smoking include: cold turkey, hypnosis, acupuncture, nicotine replacement meds(gum, lozenges, and patches), Buproprion, and Varenicline. At this time pt is encouraged to evaluate their goals for wanting to quit smoking, and reach out toprovider when ready to start this process * Brunilda Rose NP - 12/20/2024 6:53 AM ESTAssociated Problem(s): Cigarette nicotine dependence without complication The patient has been advised of the risks of continued smoking: stroke, OK, all forms of cancer, lung disease, and . Options for quitting smoking include: cold turkey, hypnosis, acupuncture, nicotine replacement meds(gum, lozenges, and patches), Buproprion, and Varenicline. At this time pt is encouraged to evaluate their goals for wanting to quit smoking, and reach out toprovider when ready to start this process * Brunilda Rose NP - 12/20/2024 6:52 AM ESTAssociated Problem(s): Rheumatoid arthritis with rheumatoid factor, unspecified ([facility]) Continue with dr cardenas Current meds: humira, methotrexate, * Brunilda Rose NP - 12/20/2024 6:51 AM ESTAssociated Problem(s): Hyperglycemia Has been told she had elevated glucose A1c 5.5% on 06/22/24 Labs in 10/16/24 glucose was 120 * Brunilda Rose NP - 12/20/2024 6:50 AM ESTAssociated Problem(s): Gout Current meds allopurinol and colchicine Labs check w Rheumatology * Brunilda Rose NP - 12/20/2024 6:48 AM ESTAssociated Problem(s): Encounter for subsequent annual wellness visit (AWV) in Medicare patient Reviewed Ht/Wt/BMI Recommend eye exam yearly Recommend dental exams twice a year Balance work/leisure activities Exercises is recommended most days of the week (appropriate as chronic conditions allow) Follow up yearly and prn * Brunilda Rose NP - 12/20/2024 6:48 AM ESTAssociated Problem(s): Morbid (severe) obesity due to excess calories (CMS/HCC) Discussed with patient their BMI (actual, verses recommended). We have also discussed lifestyle modifications: attempts to perform physical activity as chronic conditions allow, also to monitor dietary intake: increasing protein/fruits/veggies and lowering carb intake (unless contraindicated). Limit sodas, juices, and sugary drinks. * Brunilda Rose NP - 12/20/2024 6:48 AM ESTAssociated Problem(s): Hypothyroid (CMS/HCC) Current med on levothyroxine Check labs yearly, prn dose changes, changes in symptoms * Brunilda Rose NP - 12/20/2024 6:47 AM ESTAssociated Problem(s): Osteoporosis (CMS/HCC) DEXA was 05/10, -3.0, Current med fosamax * Brunilda Rose NP - 12/20/2024 6:46 AM ESTAssociated Problem(s): Lower extremity edema Lasix Limit sodium, elevate feet as much as possible Check labs yearly and prn * Brunilda Rose NP - 12/20/2024 6:45 AM ESTAssociated Problem(s): Chronic idiopathic gout of multiple sites Takes allopurinol Labs are follow with Rheumatology * Brunilda Rose NP - 12/20/2024 6:45 AM ESTAssociated Problem(s): PURA III (vulvar intraepithelial neoplasia III) 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 w PLANT ACCOUNTANT/onc * Brunilda Rose NP - 12/20/2024 6:45 AM ESTAssociated Problem(s): Gastroesophageal reflux disease without esophagitis Recommendations: freq small meals, nothing to eat or drink at least 2 hours prior to bed, limit caffeine, alcohol, as well as spicy foods Meds to limit or avoid if possible: NSAIDS, does take steroids Elevate HOB if possible Current med: omeprazole Is now only taking PPI once a day * Brunilda Rose NP - 12/20/2024 6:44 AM ESTAssociated Problem(s): HTN (hypertension) (CMS/HCC) Please check blood pressure daily and record DASH diet Limit caffeine Take medication as directed Contact office if chest pain, pressure, dizziness, shortness of breath, swelling legs Recommend slow position changes Current meds: lisinopril, and lasix * Brunilda Rose NP - 12/20/2024 6:44 AM ESTAssociated Problem(s): Polyneuropathy Current medication is gabapentin It is not felt that the neuropathy is caused by diabetes Uses more for chronic pain, does not feel like it helps as much: multiple joint pains, offered to increase the dose, or trial elavil or duloxetine, she declines this as well OARRS reviewed documented in this encounterNOND Healthcare History of Present illness Narrative 06-12-2024 Note Date & QiqnDbnhGaznxazg66-78-4401 History of Present illness Narrative* Brunilda Rose NP - 06/12/2024 11:27 AM EDTAssociated Problem(s): Fatigue For the last year or [...] consider A1c test and go from there * Brunilda Rose NP - 06/12/2024 11:23 AM EDTAssociated Problem(s): Hypothyroid (CMS/HCC) Fatigue, takes thyroid meds daily as directed * Brunilda Rose NP - 06/12/2024 11:21 AM EDTAssociated Problem(s): HTN (hypertension) ([facility]) Stable at this time No med dose change * Brunilda Rose NP - 06/12/2024 11:21 AM EDTAssociated Problem(s): Polyneuropathy Would like to increase gabapentin to 300mg BID * Brunilda Rose NP - 06/12/2024 9:20 AM EDT Images from the original note were not [...] numbness, rash, sore throat, swollen glands, urinary symptoms,vertigo, visual change or vomiting. She has tried nothing for the symptoms. The treatment provided no relief. Hypertension This is a chronic problem. The current episode started more than 1 year ago. The problem is unchanged. The problem is controlled. Pertinent negatives include no chest pain, headaches, palpitations, peripheral edema or shortness of breath. There are no associated agents to hypertension. Risk factorsfor coronary artery disease include obesity, sedentary lifestyle, smoking/tobacco exposure and post- menopausal state. Past treatments include NICK inhibitors. The [...] 12/13/2023 Heel spur, left 12/13/2023 HTN (hypertension) ([facility]) 12/13/2023 Hyperglycemia 12/13/2023 Hypothyroid ([facility]) 12/13/2023 Lower extremity edema 12/13/2023 Morbid obesity with body mass index (BMI) of 40.0 to 49.9 ([facility]) 12/13/2023 Non-compliant patient 12/13/2023 Osteoarthritis 12/13/2023 Osteoporosis ([facility]) 12/13/2023 Polyneuropathy 12/13/2023 RA (rheumatoid arthritis) ([facility]) 12/13/2023 Tobacco user 12/13/2023 Vaginal cancer ([facility]) 12/13/2023 Vitamin B12 deficiency 12/13/2023 Past Surgical [...] Visit Body mass index (BMI) 40.0-44.9, adult ([facility]) Gastroesophageal reflux disease without esophagitis Polyneuropathy Would like to increase gabapentin to 300mg BID Relevant Medications gabapentin (Neurontin) 300 MG capsule HTN (hypertension) ([facility]/HCC) - Primary Stable at this time No med dose change Relevant Medications lisinopril 10 MG tablet Malignant neoplasm of vagina (CMS/HCC) Continue with Director Of Volunteer Services/Onc Lower extremity edema Relevant Medications potassium chloride CR (Klor-Con) 10 MEQ ER tablet furosemide (Lasix) 40 MG tablet Morbid (severe) obesity due to excess calories (CMS/HCC) Hypothyroid (CMS/HCC) Fatigue, takes thyroid meds daily as directed Relevant Medications levothyroxine (Synthroid, Levoxyl) 150 MCG tablet Tobacco user RA (rheumatoid arthritis) ([facility]/HCC) Relevant Medications folic acid (Folvite) 1 MG [...] consider A1c test and go from there * Brunilda Rose NP - 06/12/2024 6:52 AM EDTAssociated Problem(s): Malignant neoplasm of vagina (CMS/HCC) Continue with Director Of Volunteer Services/Onc [facility]-13-2023 Note Date & [id number] Miscellaneous Notes* Telephone Encounter - Zohra Oates - 10/13/2023 2:33 PM EST CALLED TO CANCEL FOLLOW UP WITH ANTONIETTA SHE DOES NOT WANT TO RESCHEDULE AT THIS TIME [facility] 10-13-2023 Note Date & [id number] Telephone encounter Note* Telephone Encounter - Zohra Oates - 10/13/2023 2:33 PM EST CALLED TO CANCEL FOLLOW UP WITH ANTONIETTA SHE DOES NOT WANT TO RESCHEDULE AT THIS TIME [facility] Evaluation note Note Date & TypeNoteFacilityEvaluation note* Diagnosis Primary hypertension (CMS/HCC)- Primary Unspecified essential [...] (CMS/HCC) Other fatigue documented in this encounter [facility] Evaluation note Note Date & TypeNoteFacilityEvaluation note* Diagnosis Encounter for subsequent annual wellness visit [...] with positive rheumatoid factor, involving unspecified site ([facility]) Allergic rhinitis, unspecified seasonality, unspecified trigger Gastroesophageal reflux disease without esophagitis Esophageal reflux Primary hypertension ([facility])- Primary Unspecified essential hypertension Morbid (severe) obesity due to excess calories ([facility]) Body mass index (BMI) 40.0-44.9, adult ([facility]) Malignant neoplasm of vagina ([facility]/HCC) Malignant neoplasm of vagina Gastroesophageal reflux disease without esophagitis Esophageal reflux Lower extremity edema Edema Hypothyroidism, unspecified type ([facility]) Tobacco user Tobacco use disorder Hyperglycemia Other abnormal glucose Polyneuropathy Unspecified hereditary and idiopathic peripheral neuropathy Rheumatoid arthritis with positive rheumatoid factor, involving unspecified site ([facility]) Other fatigue Encounter for subsequent annual wellness visit (AWV) in Medicare patient- Primary Morbid (severe) obesity due to excess calories ([facility]) Body mass index (BMI) 40.0-44.9, adult ([facility]) Rheumatoid arthritis with rheumatoid factor, unspecified ([facility]) Malignant neoplasm of vagina ([facility]) Malignant neoplasm of vagina Polyneuropathy Unspecified hereditary and idiopathic peripheral neuropathy Primary hypertension ([facility]) Unspecified essential hypertension Gastroesophageal reflux disease without esophagitis Esophageal reflux Idiopathic chronic gout of multiple sites without tophus Lower extremity edema Edema Age-related osteoporosis without current pathological fracture ([facility]) Hypothyroidism, unspecified type ([facility]) Chronic gout without tophus, unspecified cause, unspecified site Hyperglycemia Other abnormal glucose Cigarette nicotine dependence without complication documented in this encounter [facility] Evaluation note Note Date & TypeNoteFacilityEvaluation note* Diagnosis Onset Date Resolution Status Admit Date Cigarette nicotine dependence acuteSeptember 2024 10:25amGERD without esophagitisacuteSeptember 2024 10:25amHTN (hypertension)acuteSeptember 2024 10:25amHypothyroidism acuteSeptember 2024 10:25amLower extremity edemaacuteSeptember 2024 10:25amMorbid (severe) obesity due to excess caloriesacuteSept2024 10:25amRheumatoid arthritis with rheumatoid factor, unspecifiedacuteSeptember 2024 10:25am [facility] Work Phone: Instructions Note Date & TypeNoteFacilityInstructionsNot on filedocumented in this encounter [facility] Reason for referral (narrative) Note Date & TypeNoteFacilityReason for referral (narrative)No reason for referral information availableWhite Hospital Work Phone: Summary Purpose Family History No Family History Records FoundNo Family History Records FoundNo Family History Records Found Advance Directives Advance Directive Response Recorded Date/ Time Advance Directives No June 9:21am Chief Complaint and Reason for Visit Chief Complaint Admit Date 6M July 16, 2025 10:25am Reason for Visit Admit Date Cigarette nicotine dependence July 16, 2025 10:25am GERD without esophagitis July 16, 2025 10:25am HTN (hypertension) July 16, 2025 10:25am Hypothyroidism July 16, 2025 10:25am Lower extremity edema July 16 10:25am Morbid (severe) obesity due to excess ca lories July 16, 2025 10:25am Rheumatoid arthritis with rheumatoid fac tor, unspecified July 16, 2025 10:25am Additional Source Comments INFORMATION SOURCE (unrecogn ized section and content) DATE CREATED AUTHOR 10/27/2018 [facility] DATE CREATED AUTHOR AUTHOR'S ORGANIZ ATION 01/15/2023 [facility] DATE CREATED AUTHOR AUTHOR'S ORGANIZ ATION 12/22/2024 [facility] EPIC Care Teams (unrecognized sec tion and content) Team MemberRelationshipSpecialtyStart DateEnd Date Brunilda Rose, SALESFORCE DEVELOPER-COMMUNICATION INSTRUCTOR [address] [place] [id number] PCP - GeneralNurse Ugcdqpabiwta15/30/19Team MemberRelationshipSpecialtyStart DateEnd Date Jerry Shah MD [address] [place] [phone] PCP - GeneralFamily Medicine12/06/23 Brunilda Rose NP [address] [place] [address] [facility]10/18/22Team MemberRelationshipSpecialtyStart DateEnd Date Jerry Shah MD [address] [place] [address] PCP - [facility]12/06/23 Brunilda Rose NP [address] [place] [address] Nurse [facility]210/18/22Te MemberRelationshipSpecialtyStart DateEnd Date Jerry Shah MD [address] [place] [address] PCP - [facility]12/06/23 Brunilda Rose NP [address] [place] [address] Nurse [facility]/18/22Te MemberRelationshipSpecialtyStart DateEnd Date Jerry Shah MD [address] [place] [address] PCP - [facility]12/06/23 Brunilda Rose NP [address] [place] [address] Nurse [facility]/18/22Team MemberRelationshipSpecialtyStart DateEnd Date Jerry Shah MD [address] [place] [phone] PCP - [facility]12/06/23 Brunilda Rose NP [address] [place] [phone] Nurse Pract[facility]er[facility]10/18/22Team MemberRelationshipSpecialtyStart DateEnd Date Jerry Shah MD [address] [place] [address] PCP - [facility]12/06/23 Brunilda Rose NP [address] [place] [address] Nurse [facility]10/18/22 Team Status: Active Member Role Status Dates MARCO Carlin Primary Care Provider Active Team Status: Inactive Member Role Status Dates MARCO Carlin Primary Care Provider Active Start: July 16, 2025 End: July 16, 2025QUE CarlinCAttending ProviderActiveStart: July 16, 2025 End: July 16, 2025 Reason for Visit (unrecogniz ed section and content) ReasonCommentsMedicare Annual Wellness Visit Initial Goals (unrecognized section and content) Goals may be documented in a n alternate section FOR RECORDS PERTAINING TO PATIENTS WHO ARE [...] BE BASED ON THE PRIMARY CLINICAL RECORDS. [facility] [facility]. provides no warranty or guarantee of the accuracy or completeness of information in this document.
--- OUTSIDE RECORDS SUMMARY | 2025-08-10 00:40 | XMS_ITS | Clinical Summary ---
Author Organization [facility] Address [address] [place] [address] Care Team Providers Care Survey Engineer Name Role Phone Brunilda Rose NP Unavailable [phone] Jerry Shah MD Primary Care Provider [phone] Allergies Active AllergyReactionsCriticalityNoted HtjfDfipbhmsCfoiwjkasZvculclq89/19/2024 BnjwttnfpbbSxfeeux15/19/2024 Medications MedicationSigDispense QuantityRefillsLast FilledStart DateEnd DateStatus methotrexate 2.5 MG tablet Take 10 tablets by mouth 1 (one) time per week.09/30/2023ctive allopurinol (Zyloprim) 300 MG tablet Take 1 tablet by mouth in the morning.09/30/2023ctive predniSONE (Deltasone) 5 MG tablet Take 1.5 tablets by mouth in the morning.09/30/2023ctive adalimumab (Humira) 40 MG/0.8ML Prefilled Syringe Kit prefilled syringe Inject 40 mg under the skin every 14 (fourteen) daysActive Calcium Polycarbophil (fiber) 625 MG tablet Take 625 mg by mouth in the morning.Active Multiple Vitamin (Multi-Vitamin) tablet Take 1 tablet by mouth in the morning.Active cetirizine (ZyrTEC) 10 MG tablet Indications:Allergic rhinitis, unspecified seasonality, unspecified triggerTake 1 tablet (10 mg) by mouth in the morning. 90 tablet ctive colchicine 0.6 MG tablet Take 0.6 mg by mouth As hkixdxid13/08/2024ctive alendronate (Fosamax) 70 MG tablet Take 70 mg by mouth every 7 (seven) days5Active furosemide (Lasix) 40 MG tablet Indications:Lower extremity edemaTake 1 tablet (40 mg) by mouth Daily 90 tablet 5Active gabapentin (Neurontin) 300 MG capsule Indications:PolyneuropathyTake 1 capsule (300 mg) by mouth in the morning and 1 capsule (300 mg) before bedtime. 180 capsule tive levothyroxine (Synthroid, Levoxyl) 150 MCG tablet Indications:Hypothyroidism, unspecified typeTake 1 tablet (150 mcg) by mouth in the morning. Take before meals. 90 tablet tive lisinopril 10 MG tablet Indications:Primary hypertensionTake 1 tablet (10 mg) by mouth Daily 90 tablet 5Active potassium chloride CR (Klor-Con) 10 MEQ ER tablet Indications:Lower extremity edema2 pills twice a day 360 tablet tive omeprazole (PriLOSEC) [address] capsule Indications:Gastroesophageal reflux disease without esophagitisTake 1 capsule (20 mg) by mouth in the morning. Take before meals. 90 capsule 5Active Active Problems ProblemNoted DateDiagnosed DateCigarette nicotine dependence without dfwjyqjzqbbl12/05/2025 Assessment & Plan (12/20/2024 6:53 AM EST): The patient has been advised of the risks of continued smoking: stroke, VA, all forms of cancer, lung disease, and . Options for quitting smoking include: cold turkey, hypnosis, acupuncture, nicotine replacement meds(gum, lozenges, and patches), Buproprion, and Varenicline. At this time pt is encouraged to evaluate their goals for wanting to quit smoking, and reach out toprovider when ready to start this process Cmgqddtkzixaah47/26/2024 Assessment & Plan (12/20/2024 11:39 AM EST): Current medication is gabapentin It is not felt that the neuropathy is caused by diabetes Uses more for chronic pain, does not feel like it helps as much: multiple joint pains, offered to increase the dose, or trial elavil or duloxetine, she declines this as well OARRS reviewed Assessment & Plan (06/12/2024 11:21 AM EDT): Would like to increase gabapentin to 300mg BID Assessment & Plan (12/13/2023 11:59 AM EST): Continue gabapentin script Fu in 6 months Abdominal pain, akggmcxkhqj91/26/2024HTN (hypertension)12/13/2023 Assessment & Plan (12/20/2024 6:44 AM EST): Please check blood pressure daily and record DASH diet Limit caffeine Take medication as directed Contact office if chest pain, pressure, dizziness, shortness of breath, swelling legs Recommend slow position changes Current meds: lisinopril, and lasix Assessment & Plan (06/12/2024 11:21 AM EDT): Stable at this time No med dose change Assessment & Plan (12/13/2023 11:59 AM EST): Stable, no changes Malignant neoplasm of ftlrvi6312/13/2023 Assessment & Plan (06/12/2024 6:52 AM EDT): 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 with 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 Operator/Onc Ekitxqheklmf81/26/2024 Overview (05/09/2024): DEXA: 05/08/24: lumbar -2.1 and right femur -3.0 osteoporosis Assessment & Plan (12/20/2024 6:54 AM EST): DEXA was 05/10, -3.0, Current med fosamax Vdxcooljnwvqpm76/26/2024Lower extremity edema12/13/2023 Assessment & Plan (12/20/2024 6:46 AM EST): Lasix Limit sodium, elevate feet as much as possible Check labs yearly and prn Assessment & Plan (12/13/2023 11:59 AM EST): Stable, no acute swelling Heel spur, left12/13/2023Vitamin B12 girwjfvgdl36/26/2024Morbid (severe) obesity due to excess sepqbsvu20/26/2024 Assessment & Plan (12/20/2024 6:48 AM EST): Discussed with patient their BMI (actual, verses recommended). We have also discussed lifestyle modifications: attempts to perform physical activity as chronic conditions allow, also to monitor dietary intake: increasing protein/fruits/veggies and lowering carb intake (unless contraindicated). Limit sodas, juices, and sugary drinks. Nmsbxsjyttv61/26/2024 Assessment & Plan (12/20/2024 6:48 AM EST): Current med on levothyroxine Check labs yearly, prn dose changes, changes in symptoms Assessment & Plan (06/12/2024 11:23 AM EDT): Fatigue, takes thyroid meds daily as directed Assessment & Plan (12/13/2023 11:59 AM EST): No changes to meds Rheumatoid arthritis with rheumatoid factor, mnjslzijunn50/26/2024 Assessment & Plan (12/20/2024 6:52 AM EST): Continue with dr fernandez Current meds: humira, methotrexate, Assessment & Plan (12/13/2023 12:04 PM EST): Continue with dr fernandez Non-compliant vwaxbdl6012/13/20239104Dnplphuraoblz42/26/2024 Assessment & Plan (12/20/2024 11:38 AM EST): Has been told she had elevated glucose A1c 5.5% on 06/22/24 Labs in 10/16/24 glucose was 120 Assessment & Plan (12/13/2023 12:01 PM EST): Discussed with pt that her elevated glucose would suggest dx diabetes, she states that she was not fasting Risk factors: obesity, and steroid use Recommend A1c check, pt refuses She wants to wait until next draw to see what glucose is H/O degenerative disc plvappm9312/13/2023Gout12/13/2023 Assessment & Plan (12/20/2024 6:50 AM EST): Current meds allopurinol and colchicine Labs check w Rheumatology Qqiqmfm8512/13/2023 Assessment & Plan (06/12/2024 11:27 AM EDT): For the last year or so pt [...] consider A1c test and go from there Allergic gxemjbol78/26/2024cute pain of left ogkavxgp58/26/2024 Assessment & Plan (12/13/2023 12:02 PM EST): Offered muscle relaxer, ortho, therapy She declined this, if does not resolve will contact office Encounter for subsequent annual wellness visit (AWV) in Medicare patient 12/13/2023 Assessment & Plan (12/20/2024 6:48 AM EST): Reviewed Ht/Wt/BMI Recommend eye exam yearly Recommend dental exams twice a year Balance work/leisure activities Exercises is recommended most days of the week (appropriate as chronic conditions allow) Follow up yearly and prn Assessment & Plan (12/13/2023 12:03 PM EST): Reviewed Ht/Wt/BMI Recommend eye exam yearly Recommend dental exams twice a year Balance work/leisure activities Exercises is recommended most days of the week (appropriate as chronic conditions allow) Follow up yearly and prn PURA III (vulvar intraepithelial neoplasia III)10/04/2019 Assessment & Plan (12/20/2024 6:45 AM EST): 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 w 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 CAR 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 Body mass index (BMI) 40.0-44.9, adult09/27/2019Chronic idiopathic gout of multiple sites10/06/2016 Assessment & Plan (12/20/2024 6:46 AM EST): Takes allopurinol Labs are follow with Rheumatology Gastroesophageal reflux disease without qhhworpxtvg83/20/2016 Assessment & Plan (12/20/2024 11:40 AM EST): Recommendations: freq small meals, nothing to eat or drink at least 2 hours prior to bed, limit caffeine, alcohol, as well as spicy foods Meds to limit or avoid if possible: NSAIDS, does take steroids Elevate HOB if possible Current med: omeprazole Is now only taking PPI once a day Resolved Problems ProblemNoted DateDiagnosed DateResolved DateTobacco userType 2 diabetes mellitus without complication, without long-term current use of mcnatri65/Morbid uxrbykr72Other specified rheumatoid arthritis, multiple sitesSmoker112/07/2015 12/20/2024 Overview (12/13/2023): 45+ pack years Immunizations ImmunizationAdministration DatesNext DueInfluenza, Seasonal, Quadrivalent, Vlaiekplgz97/13/2023,08/11/2022,08/26/2021,08/27/2020Pfizer Purple Cap SARS-CoV-2 Rbqstgubcvq20/24/2021,01/07/2021,1Pneumococcal Conjugate PCV 13110/27/2019Pneumococcal Polysaccharide TMKS4884/11/2791NSQH-RIM-2 (COVID-19) vaccine, mRNA, spike protein, LNP, PF, [place]-sucrose, 30 mcg/0.3 mL07/30/2023 SARS-COV-2 (COVID-19) vaccine, mRNA, spike protein, LNP, bivalent, preservative free, 30 mcg/0.3 mLdose, [place]-sucrose inpacxbjwag77/25/2022 Social History Tobacco UseTypesPacks/DayYears UsedDateSmoking Tobacco: Every DayCigarettes Tobacco Cessation:Ready to Q uit: Not Asked; Counseling Given: Not Answered Alcohol UseStandard Drinks/WeekCommentsNever0 (1 standard drink = 0.6 oz pure alcohol)caffine: 4 cups dailyHumiliation, Afraid, Rape, and Kick questionnaire AnswerDate RecordedWithin the last year, have you been afraid of your partner or ex-partner?No12/13/2023Within the last year, have you been humiliated or emotionally abused in other ways by your partner or ex-partner?No12/13/2023 Within the last year, have you been kicked, hit, slapped, or otherwise physically hurt by your partner or ex-partner?No12/13/2023Within the last year, have you been raped or forced to have any kind of sexual activity by your part ner or ex-partner?No12/13/2023Social Connection and Isolation PanelAnswerDate RecordedIn a typical week, how many times do you talk on the phone with family, friends, or neighbors?More than three times a week12/13/2023How often do you get together with friends or relatives?Once a week12/13/2023How often do you attend zoroastrian or jehovah's witness services?Never12/13/2023o you belong to any clubs or organizations such as zoroastrian groups, unions, fraternal or athletic groups, or school groups?Yes12/13/2023How often do you attend meetings of the clubs or organizations you belong to?Never12/13/2023re you , , , , never , or living with a partner?Cxlvyst3412/13/2023UDIT-C AnswerDate RecordedQ1: How often do you have a drink containing alcohol?Never 12/13/2023Q2: How many drinks containing alcohol do you have on a typical day when you are drinking?Patient does not drink12/13/2023Q3: How often do you have six or more drinks on one occasion?Never12/13/2023Overall Financial Resource Strain (CARDIA)AnswerDate RecordedHow hard is it for you to pay for the very basics like food, housing, medical care, and heating?Not hard at all12/13/2023 PHQ-2AnswerDate RecordedPatient Health Questionnaire-2 Prabm573Fin[facility] hospital [place] [facility] Occup[facility] - Occupational Stress QuestionnaireAnswerDate RecordedDo you feel stress - tense, restless, nervous, or anxious, or unable to sleep at night because yourmind is troubled all the time - these days?Only a uqltsc1712/13/2023Exercise Vital SignAnswerDate RecordedOn average, how many days per week do you engage in moderate to strenuous exercise (like a brisk walk)?0 days12/13/2023On average, how many minutes do you engage in exercise at this level?0 min12/13/2023Hunger Vital SignAnswerDate RecordedWithin the past 12 months, you worried that your food would run out before you got the money to buy more.Never true12/13/2023Within the past 12 months, the food you bought just didn't last and you didn't have money to get more.Never true12/13/2023RAPARE - TransportationAnswerDate RecordedIn the past 12 months, has lack of transportation kept you from medical appointments or from getting medications?No 12/13/2023In the past 12 months, has lack of transportation kept you from meetings, work, or from getting things needed for daily living?No12/13/2023 Housing Stability Vital SignAnswerDate RecordedIn the last 12 months, was there a time when you were not able to pay the mortgage or rent on time?No12/13/2023In the last 12 months, how many places have you lived?In the last 12 months, was there a time when you did not have a steady place to sleep or slept in [facility] (including now)?No12/13/2023CommentsUnknownSex and Gender InformationValueDate RecordedSex Assigned at BirthNot on fileLegal SexFemale 06/16/2023 9:04 AM EDTGender IdentityNot on fileSexual OrientationNot on file Last Filed Vital Signs Vital SignReadingTime TakenCommentsBlood Zrsijeyq400/80012/20/2024 10:30 AM EST Nvcex454012/20/2024 10:30 AM VIRYzrqrccfqpf77.8 ??C (98.3 ??F)12/20/2024 10:30 AM ESTRespiratory Cuho210712/20/2024 10:30 AM ESTOxygen Roouptmxsb88%12/20/2024 10:30 AM ESTInhaled Oxygen Concentration--Dhhund607 kg (244 lb 6.4 oz)12/20/2024 10:30 AM UXSOkdkyt509.6 cm (5' 4 )12/20/2024 10:30 AM ESTBody Mass Index41.95 12/20/2024 10:30 AM EST Plan of Treatment Not on file Insurance Care Teams Team MemberRelationshipSpecialtyStart DateEnd Date Jerry Shah MD PCP - GeneralFamily Medicine12/06/23 Brunilda Rose NP Nurse PractitionerFamily Medicine10/18/22
--- OUTSIDE RECORDS SUMMARY | 2025-08-10 00:40 | XMS_ITS | Clinical Summary ---
Author Organization [facility] Address [id number] [place] [address] Care Team Providers Care Senior Gis Analyst Name Role Phone RamseyBrunilda barone Altagracia CODING QUALITY ANALYST-PUBLIC RELATIONS ASSISTANT Primary Care Provider Allergies Active AllergyReactionsCriticalityNoted DateCommentsPiroxicamSwellingMedium 08/16/20197852VvzwmzgqlcxYgniUyz78/02/2016 Medications MedicationSigDispense QuantityRefillsLast FilledStart DateEnd DateStatus acetaminophen (TYLENOL) 325 mg tablet Take 650 mg by mouth every 6 (six) hours as needed.10/30/2016Active adalimumab (HUMIRA) 40 mg/0.8 mL injection Inject 40 mg under the skin Every 14 days.Active allopurinol (ZYLOPRIM) 300 mg tablet Take 300 mg by mouth daily.Active polycarbophil (FIBERCON) 625 mg tablet Take 625 mg by mouth daily.Active colchicine (COLCRYS) 0.6 mg tablet Take 0.6 mg by mouth daily.03/30/2017Active cyanocobalamin (VITAMIN B-12) 1,000 mcg/mL injection Inject 1,000 mcg into the appropriate muscle every 30 (thirty) days.Active docusate sodium (COLACE) 100 mg capsule Take 100 mg by mouth every 12 (twelve) hours as needed.10/30/2016Active folic acid (FOLVITE) 1 mg tablet Take 1 mg by mouth daily.Active furosemide (LASIX) 40 mg tablet Take 40 mg by mouth daily.06/13/2016Active gabapentin (NEURONTIN) 100 mg capsule Take 100 mg by mouth daily. !00 mg in AM, and 300 MG in PM Active gabapentin (NEURONTIN) 300 mg capsule Take 300 mg by mouth nightly.06/08/2016Active levothyroxine (SYNTHROID, LEVOTHROID) 175 MCG tablet Take 175 mcg by mouth daily. 08/04/2019Active lisinopril (PRINIVIL,ZESTRIL) 10 mg tablet Take 10 mg by mouth daily.Active loratadine (CLARITIN) 10 mg tablet Take 10 mg by mouth daily.Active magnesium hydroxide (MILK OF MAGNESIA) 400 mg/5 mL suspension Take 15 mL by mouth.10/30/2016Active methotrexate 2.5 mg chemo tablet Take 2.5 mg by mouth once a weekActive multivitamin (THERAGRAN) tablet Take 1 tablet by mouth daily.Active omeprazole (PriLOSEC) 20 mg capsule Take 20 mg by mouth daily.Active potassium chloride (K-DUR,KLOR-CON) 10 MEQ CR tablet Take 10 mEq by mouth daily.03/30/2017Active predniSONE (DELTASONE) 5 mg tablet Take 5 mg by mouth daily.Active cetirizine (ZyrTEC) 10 mg tablet Take 10 mg by mouth daily.Active calcium citrate/vitamin D3 (CITRACAL REGULAR ORAL) Take 2 tablets by mouth daily.Active Active Problems ProblemNoted DateDiagnosed DateVIN III (vulvar intraepithelial neoplasia III) 10/04/2019BMI 45.0-49.9, adult09/27/2019 Family History Medical HistoryRelationNameCommentsAnesthesia problemsNeg HxRelationNameStatus CommentsFatherDeceasedMotherDeceased Social History Tobacco UseTypesPacks/DayYears UsedDateSmoking Tobacco: Every ThqVouzyuvpok660 Smokeless Tobacco: NeverAlcohol UseStandard Drinks/WeekCommentsNever0 (1 standard drink = 0.6 oz pure alcohol)AUDIT-CAnswerDate RecordedFrequency of Alcohol OkxekbtwxngSmetj16/30/2019Average Number of DrinksNot on file08/16/2019 Frequency of Binge DrinkingNot on file08/16/2019ChildcareAnswerDate Recorded BsrogztvcNijcydp51/12/2019EmploymentAnswerDate RecordedEmploymentUnknown 03/29/2019Purpose - LifeAnswerDate RecordedPurpose and direction in lifeUnknown 1CommentsNoSex and Gender InformationValueDate RecordedSex Assigned at BirthNot on fileLegal QvwRpqjgm84/06/2015 11:35 AM EDTGender IdentityNot on fileSexual OrientationNot on file Last Filed Vital Signs Vital SignReadingTime TakenCommentsBlood Unkgbofw512/85010/21/2022 10:02 AM EST Mwbvh284910/21/2022 10:02 AM CVWGjafiumlqgf11.6 ??C (97.9 ??F)10/21/2022 10:02 AM ESTRespiratory Jmii082110/21/2022 10:02 AM ESTOxygen Sujleuvefw76%10/21/2022 10:02 AM ESTInhaled Oxygen Concentration--Kgbtor064.9 kg (251 lb)10/21/2022 10:02 AM UDRSbkizr437.6 cm (5' 4 )10/21/2022 10:02 AM ESTBody Mass Index43.0810/21/2022 10:02 AM EST Plan of Treatment Health MaintenanceDue DateLast DoneCommentsDepression Pohobdyes06/09/1962Tobacco Kascudubc65/09/1962DTaP,Tdap and Td Vaccines (1 - Tdap)1969Zoster (Shingles) Vaccine (1 of 2)2000Fall Risk Vltkdmjto09/09/2015dult BMI Qvbrfcurq61OVID-19 Vaccine (2024- season)2025 08/11/2022, 09/10/2021, 01/07/2021, Additional history existsInfluenza Vaccine , 08/26/2021, 08/27/2020 Medical Devices Not on file Insurance Care Teams Team MemberRelationshipSpecialtyStart DateEnd Date Brunilda Rose, CODING QUALITY ANALYST-PUBLIC RELATIONS ASSISTANT PCP - GeneralNurse Ilrgkcgwezwo73/30/19
--- NOTE | 2025-08-10 00:59 | ED.BACK1 ---
HPI HPI - Back Pain/Injury General Chief Complaint: Back Pain/Injury Stated Complaint: BACK PAIN Time Seen by Provider: 08/10/25 00:37 Source: patient Mode of arrival: ambulance History of Present Illness HPI Narrative: 74-year-old female with a history of tobacco use presents for evaluation of right low back pain. The patient states she was on the toilet several days ago and was reaching around for some Kleenex when she felt a pull in her right low back. Since that time she has had increased back pain and cannot stand upright. She did not have any fall. She has no weakness or numbness. She has not had any loss of bowel or bladder control. She has not had a fever. She has been using Tylenol and prednisone for relief of her pain. She states the pain now radiates around to the right lower quadrant of her abdomen. She does have some mild nausea but she relates this to her pain. She does not have a history of kidney stones. She denies any chest pain or shortness of breath. Related Data Home Medications ?Medication ?Instructions ?Recorded ?Confirmed alendronate 70 mg tablet 70 mg PO DAILY 08/10/25 08/10/25 allopurinol 300 mg tablet 300 mg PO DAILY 08/10/25 08/10/25 colchicine 0.6 mg tablet 0.6 mg PO DAILY 08/10/25 08/10/25 folic acid 1 mg tablet 1 mg PO DAILY 08/10/25 08/10/25 furosemide 40 mg tablet 40 mg PO DAILY 08/10/25 08/10/25 gabapentin 300 mg capsule 300 mg PO Q12H 08/10/25 08/10/25 levothyroxine 150 mcg tablet 150 mcg PO DAILY 08/10/25 08/10/25 lisinopril 10 mg tablet 10 mg PO DAILY 08/10/25 08/10/25 methotrexate sodium 2.5 mg tablet 2.5 mg PO DAILY 08/10/25 08/10/25 omeprazole 20 mg capsule,delayed 20 mg PO DAILY 08/10/25 08/10/25 release potassium chloride 10 mEq 10 meq PO DAILY 08/10/25 08/10/25 tablet,extended release prednisone 5 mg tablet 5 mg PO DAILY 08/10/25 08/10/25 Allergies Allergy/AdvReac Type Severity Reaction Status Date / Time Penicillins Allergy Intermediate swelling Verified 08/10/25 00:36 piroxicam (From Feldene) Allergy Intermediate swelling Verified 08/10/25 00:36 Opioid HPI Opioid Management Most Recent Opioid Data: Last Pain Scale 10 Today, 01:24 Last DEC Pain Assessment Today, 01:24 Review of Systems ROS Status of ROS 10 or more systems reviewed and unremarkable except as noted in history and below PFSH PFSH Social History Little interest or pleasure in doing things: not at all Feeling down, depressed, or hopeless: not at all Exam Narrative Exam Narrative: Vital signs and Nursing Notes reviewed: Patient is afebrile, bradycardic with a pulse of 56 per blood pressure is elevated at 172/67, she is borderline hypoxic pulse ox of 93% on room air General: Awake, alert, oriented, overweight female, she is moaning, no respiratory distress HEENT: Normocephalic atraumatic, mucous membranes are moist and pink, eyes are clear, normal conjunctiva, vision is grossly intact, posterior pharynx is normal in appearance. Chest: Faint expiratory wheezing, no rhonchi or rales appreciated CVS: Regular rate and rhythm S1-S2, no murmurs rubs or gallops, pulses are brisk and equal bilaterally ABD: Obese, soft, no tenderness to McBurney's point, no pulsatile masses appreciated, femoral pulses are brisk and equal bilaterally Musc: There is to palpation in the right lower lateral lumbar region, no midline bony tenderness or step-off noted, no tenderness on the left low back area Extremities: Moving all extremities, no lower extremity tenderness or swelling noted, negative Homans' sign, pulses are brisk and equal bilaterally Skin: Normal in appearance without rash,pallor, petechiae or purpura Neuro: No focal deficits, lower extremity strength and sensation is intact, no saddle anesthesia Constitutional Vital Signs, click to edit/add: Last Vital Signs Temp 98.3 F 08/10/25 00:36 Pulse 56 L 08/10/25 00:36 Resp 16 08/10/25 00:36 BP 172/67 H 08/10/25 00:36 Pulse Ox 93 L 08/10/25 00:36 O2 Del Method Room Air 08/10/25 00:36 Course Vital Signs Vital signs: Vital Signs Temperature 98.3 F 08/10/25 00:36 Pulse Rate 56 L 08/10/25 00:36 Respiratory Rate 16 08/10/25 00:36 Blood Pressure 172/67 H 08/10/25 00:36 Pulse Oximetry 93 L 08/10/25 00:36 Oxygen Delivery Method Room Air 08/10/25 00:36 Temperature 98.3 F 08/10/25 00:36 Pulse Rate 56 L 08/10/25 00:36 Respiratory Rate 16 08/10/25 00:36 Blood Pressure 172/67 H 08/10/25 00:36 Pulse Oximetry 93 L 08/10/25 00:36 Oxygen Delivery Method Room Air 08/10/25 00:36 MDM - Back Pain/Injury MDM Narrative Medical decision making narrative: This 74-year-old female is brought to the emergency department by EMS from home for evaluation of right low back pain. States that she tweaked her back several days ago while in the bathroom reaching for a box of Kleenex. She has had increasing pain since that time. She has been using Tylenol and increased her prednisone without significant improvement. She denies any injury. She has not had any fever. The pain is strictly in the right flank and over the course of the past 24 hours has referred into the right lower quadrant. She is not having any nausea or vomiting. She has not had any diarrhea. She has no neurologic deficits. Upon arrival she was crying and moaning in pain, poorly able to participate in the physical exam. She is tender to palpation in the right lower lateral lumbar region. There is no midline bony vertebral tenderness, step-off or skin rash in this area. Her abdomen is obese and soft, there was no reproducible tenderness in the abdomen. An IV was placed and she was medicated with IV fluids, Zofran, Toradol, Solu-Medrol, Norflex and morphine. On reevaluation she states she is feeling somewhat better. Her moaning has resolved and she appears more comfortable. Routine labs and urinalysis were ordered. She has a normal white count and stable hemoglobin. Electrolytes are normal. Urine is negative for infection or blood. Ct scan of the abdomen pelvis without contrast was ordered due to her concern for something serious going on like her intestines twisting into a knot. While we are awaiting the CT scan she was able to get on and off a bedpan to produce a urine. She was given an oral dose of Percocet for ongoing pain control while we await the CT scan. She is reevaluated and is much more comfortable. CT scan shows normal lower chest, normal liver pancreas spleen adrenals kidneys ureters bladder, reproductive system, there is sigmoid diverticulosis without acute diverticulitis, there is no acute findings for acute appendicitis, normal peritoneum, aorta iliac atherosclerosis, osteopenia with a compression deformity at the superior endplate of L2 accompanied by mild vertebral soft tissue edema with approximately 20% loss of height. The results of the CT scan were discussed with her and she was given a copy of the scan to share with her family physician. She is on alendronate but has also been on steroids for many years and Humira and methotrexate. Discharged home with a prescription for Percocet, Zofran, Norflex and ibuprofen. She was encouraged to follow-up closely with her family physician. Lab Data Labs: Lab Results 08/10/25 08/10/25 08/10/25 Range/Units 00:40 00:57 02:55 WBC 7.7 (4.0-11.0) 10^3/uL RBC 4.41 (4.20-5.40) 10^6/uL Hgb 15.3 (12.0-16.0) g/dL Hct 45.9 (36.0-48.0) % MCV 104.1 H (81.0-99.0) fL MCH 34.7 H (26.7-34.0) pg MCHC 33.3 (29.9-35.2) g/dL RDW 14.3 (11.0-15.0) % Plt Count 209 (150-450) 10^3/uL MPV 9.6 (9.5-13.5) fL Neut % (Auto) 66.2 (43.0-75.0) % Lymph % (Auto) 20.8 (20.5-60.0) % [place] % (Auto) 8.2 (1.7-12.0) % Eos % (Auto) 4.3 (0.9-7.0) % Baso % (Auto) 0.1 L (0.2-2.0) % Neut # (Auto) 5.1 (1.4-6.5) 10^3/uL Lymph # (Auto) 1.6 (1.2-3.8) 10^3/uL [place] # (Auto) 0.6 (0.3-0.8) 10^3/uL Eos # (Auto) 0.3 (0.0-0.7) 10^3/uL Baso # (Auto) 0.0 (0.0-0.1) 10^3/uL Abs Immat Gran (auto) 0.03 (0.00-0.03) 10^3/uL Imm/Tot Granulo (auto) 0.4 (0.0-0.5) % Sodium 136 (136-145) mmol/L Potassium 3.9 (3.5-5.1) mmol/L Chloride 98 (98-107) mmol/L Carbon Dioxide 27.7 (21.0-32.0) mmol/L Anion Gap 14.2 BUN 9.0 (7.0-18.0) mg/dL Creatinine 0.70 (0.55-1.02) mg/dL Est GFR ( Amer) >60 (>=60 mL/min/1.73m^2) Est GFR (Non-Af Amer) >60 (>=60 mL/min/1.73m^2) BUN/Creatinine Ratio 12.9 Glucose 122 H (74-106) mg/dL Calcium 8.9 (8.5-10.1) mg/dL Total Bilirubin 0.6 (0.2-1.0) mg/dL AST 18 (15-37) U/L ALT 22 (14-59) U/L Alkaline Phosphatase 86 (46-116) U/L Total Protein 7.4 (6.4-8.2) g/dL Albumin 3.6 (3.4-5.0) g/dL Globulin 3.8 g/dL Albumin/Globulin Ratio 0.9 Urine Color Lt. yellow (YELLOW) Urine Clarity Clear (CLEAR) Urine pH 6.0 (5.0-9.0) Ur Specific [place] <=1.005 A (1.005-1.025) Urine Protein Negative (NEG/TRACE) mg/dL Urine Glucose (UA) Negative (NEGATIVE) mg/dL Urine Ketones Negative (NEGATIVE) mg/dL Urine Occult Blood Negative (NEGATIVE) Urine Nitrite Negative (NEGATIVE) Urine Bilirubin Negative (NEGATIVE) Urine Urobilinogen 0.2 (0.2-1.0) EU/dL Ur Leukocyte Esterase Negative (NEGATIVE) Urine RBC None seen (0-2) #/HPF Urine WBC 0-2 A (NONE SEEN) #/HPF Ur Squamous Epith Cells Rare (NONE/RARE) #/LPF Urine Crystals None seen (None Seen) #/HPF Urine Bacteria Trace A (NONE SEEN) #/HPF Urine Casts None seen (NONE SEEN) #/LPF Urine Mucus None seen (NONE SEEN) Ur Culture Indicated? No Discharge Plan Discharge Chief Complaint: Back Pain/Injury Clinical Impression: Strain of lumbar region, Low back pain, Lumbar compression fracture Patient Disposition: Home, Self-Care Time of Disposition Decision: 06:05 Condition: Good Prescriptions / Home Meds: No Action alendronate 70 mg tablet 70 mg PO DAILY allopurinol 300 mg tablet 300 mg PO DAILY colchicine 0.6 mg tablet 0.6 mg PO DAILY folic acid 1 mg tablet 1 mg PO DAILY gabapentin 300 mg capsule 300 mg PO Q12H furosemide 40 mg tablet 40 mg PO DAILY levothyroxine 150 mcg tablet 150 mcg PO DAILY lisinopril 10 mg tablet 10 mg PO DAILY methotrexate sodium 2.5 mg tablet 2.5 mg PO DAILY potassium chloride 10 mEq tablet extended release 10 meq PO DAILY prednisone 5 mg tablet 5 mg PO DAILY omeprazole 20 mg capsule,delayed release(DR/EC) 20 mg PO DAILY Print Language: Guatemalan Instructions: Vertebral Compression Fracture (ED), Acute Low Back Pain (ED) Referrals: Physician,Non-Staff, MD [Primary Care Provider] - 1 week
[2025-08-10] MEDS: METHYLPREDNISOLONE SOD SUCC PF 125 MG/2 ML VIAL IVP (01:11)
[2025-08-10] MEDS: 0.9 % SODIUM CHLORIDE 1,000 ML 1000 ML IV (01:11)
[2025-08-10] MEDS: ORPHENADRINE 60 MG/2 ML VIAL IV (01:11)
[2025-08-10] MEDS: KETOROLAC TROMETHAMINE 30 MG/ML VIAL IVP (01:12)
[2025-08-10 01:15] LABS: Hematocrit 45.9 % (36.0-48.0); Hemoglobin 15.3 g/dL (12.0-16.0); Immature Granulocytes Abs Auto 0.03 10^3/uL (0.00-0.03); Immature Granulocytes Pct Auto 0.4 % (0.0-0.5); Lymphocytes Absolute Auto 1.6 10^3/uL (1.2-3.8); Mean Corpuscular HGB Conc 33.3 g/dL (29.9-35.2); Mean Corpuscular Hemoglobin 34.7 pg (26.7-34.0); Mean Corpuscular Volume 104.1 fL (81.0-99.0); Platelet Count 209 10^3/uL (150-450); Red Blood Count 4.41 10^6/uL (4.20-5.40); White Blood Count 7.7 10^3/uL (4.0-11.0)
[2025-08-10] MEDS: MORPHINE SULFATE 4 MG/ML VIAL IV (01:24)
[2025-08-10 01:29] LABS: Alanine Aminotransferase 22 U/L (14-59); Albumin Globulin Ratio 0.9; Albumin Level 3.6 g/dL (3.4-5.0); Alkaline Phosphatase 86 U/L (46-116); Anion Gap 14.2; Aspartate Amino Transferase 18 U/L (15-37); Blood Urea Nitrogen 9.0 mg/dL (7.0-18.0); Calcium 8.9 mg/dL (8.5-10.1); Carbon Dioxide 27.7 mmol/L (21.0-32.0); Chloride 98 mmol/L (98-107); Estimated GFR (African America >60 (>=60 mL/min/1.73m^2); Estimated GFR (Non-African Ame >60 (>=60 mL/min/1.73m^2); Globulin 3.8 g/dL; Glucose 122 mg/dL (74-106); Potassium 3.9 mmol/L (3.5-5.1); Sodium 136 mmol/L (136-145); Total Protein 7.4 g/dL (6.4-8.2)
[2025-08-10 03:10] LABS: Glucose Urine UA NEGATIVE (NEGATIVE)
[2025-08-10 03:21] LABS: Cast Seen? NONE SEEN #/LPF (NONE SEEN); Crystals Seen? None Seen #/HPF (None Seen); Urine Culture Indicated NO
[2025-08-10] MEDS: OXYCODONE HCL/ACETAMINOPHEN 5MG/325MG 1 TAB PO ×2 (04:20→06:20)
[2025-08-10] MEDS: OXYCODONE HCL/ACETAMINOPHEN 5MG/325MG PO (06:20)
== END 2025-08-10 06:50 | disposition home or self-care (01) ==
PROVIDERS: Emergency Provider Emergency Medicine
DX: S39.012A Strain of muscle, fascia and tendon of lower back, initial encounter (principal); X50.1XXA Overexertion from prolonged static or awkward postures, initial encounter; M48.56XA Collapsed vertebra, not elsewhere classified, lumbar region, initial encounter for fracture; K57.30 Diverticulosis of large intestine without perforation or abscess without bleeding
CPT/HCPCS: 36415; 74176; 80053; 81001; 85025; 96374; 96375; 99284; J1885; J2270; J2360; J2405; J2919

== ENCOUNTER 2025-08-13 01:02 | Inpatient (IN) | payer MEDICARE, OTHER, SELFPAY ==
[2025-08-13] VITALS (9 sets, daily range): BP systolic 114–158; BP diastolic 55–74; PULSE 51–93; TEMP 36.4–37; O2SAT 90–95; BMI 39.4
--- OUTSIDE RECORDS SUMMARY | 2025-08-13 01:34 | XMS_ITS | CCD ---
Author Organization [facility] Care Team Providers Care Adjunct Spanish Instructor Name Role Phone MAHDI, BLAINE Unavailable Unavailable MAHDI, BLAINE Unavailable Unavailable MAHDI, BLAINE Unavailable Unavailable MAHDI, BLAINE Unavailable Unavailable AICHHOLZ, LEADED GLASS INSTALLER BRUNILDA Primary Care Unavailable MISC, DOCTOR Attending Unavailable MISC, DR SMITH Consulting Unavailable MISC, DR SMITH Admitting Unavailable AICHHOLZ, LEADED GLASS INSTALLER BRUNILDA Consulting Unavailable AICHHOLZ, LEADED GLASS INSTALLER BRUNILDA Admitting Unavailable AICHHOLZ, LEADED GLASS INSTALLER BRUNILDA Primary Care Unavailable AICHHOLZ, LEADED GLASS INSTALLER BRUNILDA Attending Unavailable MISC, DR SMITH Admitting Unavailable AICHHOLZ, LEADED GLASS INSTALLER BRUNILDA Primary Care Unavailable MISC, DR SMITH Attending Unavailable MISC, DR SMITH Consulting Unavailable AICHHOLZ, LEADED GLASS INSTALLER BRUNILDA Attending Unavailable AICHHOLZ, LEADED GLASS INSTALLER BRUNILDA Consulting Unavailable AICHHOLZ, LEADED GLASS INSTALLER BRUNILDA Primary Care Unavailable AICHHOLZ, LEADED GLASS INSTALLER BRUNILDA Admitting Unavailable AICHHOLZ, LEADED GLASS INSTALLER BRUNILDA Primary Care Unavailable MISC, DR SMITH Attending Unavailable MISC, DR SMITH Consulting Unavailable AICHHOLZ, LEADED GLASS INSTALLER BRUNILDA Admitting Unavailable AICHHOLZ, LEADED GLASS INSTALLER BRUNILDA Primary Care Unavailable THERESA, DR KAPOOR Admitting Unavailable KOKO, DR KALEIGH Jameson Consulting Unavailable CARDENAS, DR KAPOOR Attending Unavailable CARDENAS, DR KAPOOR Consulting Unavailable MISC, DR SMITH Attending Unavailable AICHHOLZ, LEADED GLASS INSTALLER BRUNILDA Primary Care Unavailable MISC, DR SMITH Consulting Unavailable MISC, DR SMITH Admitting Unavailable Aichholz NURSING INSTRUCTOR-GENI, Brunilda Altagracia Primary Care Provider Aichholz BUSINESS INTEGRATION ANALYST, Brunilda Unavailable Jerry Shah MD Primary Care Provider AICHHOLZ, BRUNILDA Attending Unavailable AICHHOLZ, BRUNILDA Attending Unavailable Aichholz BUSINESS INTEGRATION ANALYST-C, Brunilda J Primary Care Provider Milton LARA, Brunilda Frias Attending Provider [phone] Allergies Allergy ClassificationReported Allergen(s)Allergy TypeDate of OnsetReaction(s) Facility (12 sources)Penicillins; Translations: [PENICILLINS]Propensity to adverse reactions to drug (disorder)21-87-0834Xwgq, UnknownOhiohealth [facility] (11 sources)PiroxicamDrug Nqjlyhm78-76-3474XducsuauPwdWicmwj Health System Medications Current Medications MedicationDrug Class(es)DatesSig (Normalized)Sig (Original)acetaminophen 325 mg oral tablet (1 source)Start: 81-83-9287reeh 2 tablets by mouth every six hours as needed acetaminophen (TYLENOL) 325 mg tablet Take 650 mg by mouth every 6 (six) hours as needed. 0 10/30/2016 Active0.8 ml adalimumab 50 mg/ml prefilled syringe (11 sources)Tumor Necrosis Factor BlockerStart: 25-48-9308Nvqhbxlhgt (Humira) 40 mg/0.8 mL syringe kit Active [...] acid 70 mg oral tablet (5 sources)BisphosphonateStart: 25-56-8078xyhs 1 tablet by mouth every week Alendronate (Fosamax) 70 mg tablet Active 70 MG PO every week July 13, 2025 12:00am Complieswith drug therapyStart: 51-82-0588xazjlqyvlut (Fosamax) 70 MG tablet Take 70 mg by mouth every 7 (seven) days 11/28/2024 Activeallopurinol 300 mg oral tablet (11 sources)Xanthine Oxidase InhibitorStart: 99-33-0090dgpx 1 tablet by mouth once dailyAllopurinol 300 mg tablet Active 300 MG PO Daily July 13, 2025 12:00am Complies with drug therapyStart: 14-13-3083yblo 1 tablet by mouth in the morningallopurinol (Zyloprim) 300 MG tablet Take 1 tablet by mouth in the morning. 09/30/2023 Activecalcium citrate/vitamin D3 (CITRACAL REGULAR ORAL) (1 source)take 2 tablets by mouth once dailycalcium citrate/vitamin D3 (CITRACAL REGULAR ORAL) Take 2 tablets by mouth daily. 0 Activecalcium polycarbophil 625 mg oral tablet (11 sources)Start: 29-91-3395Uwncbjw Polycarbophil 625 mg tablet Active 1250 MG PO Daily July 13, 2025 12:00am Complies with drug therapytake 1 tablet by mouth in the morningCalcium Polycarbophil (fiber) 625 MG tablet Take 625 mg by mouth in the morning. Activecetirizine hydrochloride 10 mg oral tablet (11 sources)Histamine-1 Receptor AntagonistStart: 73-58-0553hkvy 1 tablet by mouth once daily as [...] Activecolchicine 0.6 mg oral tablet (13 sources)Start: 00-56-0398vxwo 1 tablet by mouth once daily as needed Colchicine 0.6 mg tablet Active 0.6 MG PO Daily as needed for gout July 13, 2025 12:00am Complies with drug therapyStart: 48-25-8718jcxpazwufk 0.6 MG tablet Take 0.6 mg by mouth As directed 05/25/2024 ActiveStart: 09-30-2023 End: 92-64-8903kewc 1 capsule by mouth in the morningMitigare 0.6 MG capsule Take 1 capsule by mouth in the morning. 09/30/2023 06/12/2024 Discontinued ( Therapy completed)Start: 09-05-5494amoj 1 tablet by mouth once dailycolchicine (COLCRYS) 0.6 mg tablet Take 0.6 mg by mouth daily. 0 03/30/2017 Activedocusate sodium 100 mg oral capsule (1 source)Start: 31-02-9462gfvk 1 capsule by mouth every twelve hours as needed docusate sodium (COLACE) 100 mg capsule Take 100 mg by mouth every 12 (twelve) hours as needed. 0 10/30/2016 Activefolic acid 1 mg oral tablet (14 sources)Start: 86-41-3863aecf 1 tablet by mouth once dailyFolic Acid 1 mg tablet Active 1 MG PO Daily July 16, 2025 12:00am Complies with drug therapyStart: 11-28-2024 End: 26-56-6662dytc 1 tablet by mouth once dailyfolic acid (Folvite) 1 MG tablet Indications: Rheumatoid arthritis with rheumatoid factor, unspecified (CMS/HCC) Take 1 tablet (1 mg) by mouth Daily 90 tablet 3 12/20/2024 03/20/2025 Active Start: 09-30-2023 End: 87-35-5495hhvd 1 tablet by mouth once daily in the morningfolic acid (Folvite) 1 MG tablet Indications: Rheumatoid arthritis with positive rheumatoid factor,involving unspecified site (CMS/HCC) Take 1 tablet (1,000 mcg) by mouth Daily Take 1 tablet by mouth in the morning. 90 tablet 3 06/12/2024 09/10/2024 Activefurosemide 40 mg oral tablet (15 sources)Loop DiureticStart: 59-81-4778crsv 1 tablet by mouth once daily Furosemide (Lasix) 40 mg tablet Active 40 MG PO Daily July 13, 2025 12:00am Complies with drug therapyStart: 12-13-2023 End: 53-66-3237lfbr 1 tablet by mouth once dailyfurosemide (Lasix) 40 MG tablet Indications: Lower extremity edema Take 1 tablet (40 mg) by mouth Daily 90 tablet 3 12/20/2024 03/20/2025 ActiveStart: 20-00-0013yojx 1 tablet by mouth once dailyfurosemide (LASIX) 40 mg tablet Take 40 mg by mouth daily. 0 06/13/2016 Activegabapentin 300 mg oral capsule (19 sources)Anti-epileptic AgentStart: 02-28-5288swuw 1 capsule by mouth twice dailyGabapentin 300 mg capsule Active 300 MG PO Twice daily July 13, 2025 12:00am Complies with drug therapyStart: 12-13-2023 End: 27-25-8393wrqz 1 capsule by mouth in the morninggabapentin (Neurontin) 300 MG capsule Indications: Polyneuropathy Take 1 capsule (300 mg) by mouth in the morning and 1 capsule (300 mg) before bedtime. 180 capsule 3 12/20/2024 03/20/2025 ActiveStart: 12-13-2023 End: 25-79-5378mrau 1 capsule by mouth in the morninggabapentin (Neurontin) 100 MG capsule Indications: Polyneuropathy Take 1 capsule (100 mg) by mouth in the morning. 90 capsule 3 12/13/2023 06/12/2024 Discontinued (Ineffective)Start: 73-34-4045tszt 1 capsule by mouth once dailygabapentin (NEURONTIN) 300 mg capsule Take 300 mg by mouth nightly. 0 06/08/2016 Activegabapentin (NEURONTIN) 100 mg capsule Take 100 mg by mouth daily. !00 mg in AM, and 300 MG in PM 0 A ctivelevothyroxine sodium 0.15 mg oral tablet (15 sources)l-ThyroxineStart: 30-87-7938pksx 1 tablet by mouth once daily Levothyroxine 150 mcg tablet Active 150 MCG PO Daily July 13, 2025 12:00am Complies with drug therapyStart: 12-13-2023 End: 99-27-9688drci 1 tablet by mouth before mealtimelevothyroxine (Synthroid, Levoxyl) 150 MCG tablet Indications: Hypothyroidism, unspecified type (CMS/HCC) Take 1 tablet (150 mcg) by mouth in the morning. Take before meals. 90 tablet 3 12/20/2024 03/20/2025 ActiveStart: 51-49-3879uzbl 1 tablet by mouth once daily levothyroxine (SYNTHROID, LEVOTHROID) 175 MCG tablet Take 175 mcg by mouth daily. 0 08/04/2019 Activelisinopril 10 mg oral tablet (15 sources)Angiotensin Converting Enzyme InhibitorStart: 13-55-5869migf 1 tablet by mouth once dailyLisinopril 10 mg tablet Active 10 MG PO Daily July 13, 2025 12:00am Complies with drug therapyStart: 12-13-2023 End: 78-42-9108sect 1 tablet by mouth once dailylisinopril 10 [...] hydroxide 80 mg/ml oral suspension (1 source)Start: 07-89-8055jckonyawg hydroxide (MILK OF MAGNESIA) 400 mg/5 mL suspension Take 15 mL by mouth. 0 10/30/2016 Activemethotrexate 2.5 mg oral tablet (11 sources)Folate Analog Metabolic InhibitorStart: 16-01-7513juaz 1 tablet by mouth every weekMethotrexate Sodium [...] mouth daily. 0 ActiveMultivitamin tablet (1 source)Start: 01-01-9005mczq 1 tablet by mouth once dailyMultivitamin tablet Active 1 TAB PO Daily July 13, 2025 12:00am Complies with drug therapy omeprazole 20 mg delayed release oral capsule (13 sources)Proton Pump InhibitorStart: 28-73-3651finw 1 capsule by mouth once dailyOmeprazole 20 mg capsule,delayed release(DR/EC) Active 20 MG PO Daily July 13, 2025 12:00am Complies with drug therapyStart: 12-13-2023 End: 51-67-8743hzde 1 capsule by mouth before mealtimeomeprazole (PriLOSEC) [address] capsule Indications: Gastroesophageal reflux disease without esophagitis Take 1 capsule (20 mg) by mouth in the morning. Take before meals. 90 capsule 3 12/20/2024 03/20/2025 Activetake 1 capsule by mouth once dailyomeprazole (PriLOSEC) 20 mg capsule Take 20 mg by mouth daily. 0 Activepotassium chloride 10 meq extended release oral tablet (15 sources)Start: 64-30-8239lcdi 2 tablets by mouth twice dailyPotassium Chloride 10 mEq tablet extended release Active 20 MEQ PO Twice daily July 132:00am Complies with drug therapyStart: 21-08-3531varnpxnlw chloride CR (Klor-Con) 10 MEQ ER tablet Indications: Lower extremity edema 2 pills twice a day 360 tablet 3 12/20/2024 ActiveStart: 12-13-2023 End: 47-09-3965mcrriffsr chloride CR (Klor-Con) 10 MEQ ER tablet Indications: Lower extremity edema 2 pills twice a day2 pills twice a day 360 tablet 3 06/12/2024 12/20/2024 Discontinued (Reorder)Start: 07-72-0947uonzmrtev chloride (K-DUR,KLOR-CON) 10 MEQ CR tablet Take 10 mEq by mouth daily. 0 03/30/2017 ActivepredniSONE 5 mg oral tablet (11 sources)Start: 24-84-9803lgmg 7.5 mg by mouth once dailyPrednisone 5 mg tablet Active 7.5 MG PO Daily July 13, 2025 12:00am Complies with drug therapyStart: 30-24-4769nphs 1.5 tablets by mouth in the morningpredniSONE (Deltasone) 5 MG tablet Take 1.5 tablets by mouth in the morning. 09/30/2023 Activetake 1 tablet by mouth once dailypredniSONE (DELTASONE) 5 mg tablet Take 5 mg by mouth daily. 0 Activevitamin b12 1 mg/ml injectable solution (1 source)Vitamin G10egbcmfuihnzyac (VITAMIN B-12) 1,000 mcg/mL injection Inject 1,000 mcg into the appropriate muscle every 30 (thirty) days. 0 Active Problems Active Problems Problem ClassificationProblemDateDocumented DateEpisodic/ChronicAbdominal pain (10 sources)Generalized abdominal pain; Translations: [Generalized abdominal pain]Onset: 587835-42-5174CokhlermQhikii of other female genital organs (20 sources)Vulval intraepithelial neoplasia grade 3; Translations: [Carcinoma in situ of vulva]Onset: 338943-84-3274NsbhqijCfwedtmh mellitus without complication (14 sources)Hyperglycemia; Translations: [Hyperglycemia, unspecified]Onset: 529471-78-2836SgshtorcBnolrvzpjt disorders (15 sources)Gastroesophageal reflux disease without esophagitis; Translations: [Gastro-esophageal reflux disease without esophagitis]Onset: 10-06-2016 53-20-2989CuksovvGqwegxvey hypertension (15 sources)Hypertensive disorder; Translations: [Essential (primary) hypertension]Onset: 493069-47-5834KgeqnujEocp and other crystal arthropathies (20 sources)Idiopathic gout, multiple sites; Translations: [Chronic primary gouty arthritis]Onset: 733369-02-5990JvurvpzSpndwth and fatigue (12 sources)Fatigue; Translations: [Other fatigue]Onset: EpisodicNutritional deficiencies (10 sources)Cobalamin deficiency; Translations: [Deficiency of other specified B group vitamins]Onset: 229636-35-8610XqslhkxhBhartjrsoruvjs (11 sources)Primary generalized (osteo)arthritis; Translations: [Osteoarthritis] Onset: 621871-43-7273MzzuahaRbqodsmyvzzo (16 sources)Age-related osteoporosis without current pathological fracture; Translations: [Osteoporosis]Onset: 44-45-7675KyoztrkMvgqq aftercare (1 source)Other long term care social worker (current) drug therapy; Translations: [OTH QUALITY CONTROL INSPECTOR HEADING CURRENT DRUG THERAPY]Onset: 70-56-3311RvjpuzyhHffrv connective tissue disease (10 sources)H/O: osteoarthritis; Translations: [Personal history of other diseases of the musculoskeletal system and connective tissue]Onset: 12-13-2023 07-04-3627AyqplriwKvggs connective tissue disease (1 source)Calcaneal spur; Translations: [Calcaneal spur, unspecified foot] 61-75-4008GfnwvzsrEsdkh nervous system disorders (14 sources)Polyneuropathy; Translations: [Polyneuropathy, unspecified]Onset: 215362-44-2017GdaekkeTobzb non-traumatic joint disorders (10 sources)Pain in left shoulder; Translations: [Pain in joint, shoulder region]Onset: 347965-96-9456PpdugzmuMvuuh nutritional; endocrine; and metabolic disorders (15 sources)Body mass index 40+ - severely obese; Translations: [Body mass index (BMI) 45.0-49.9, adult]Onset: 453058-18-6159JstcqqaLoukd nutritional; endocrine; and metabolic disorders (15 sources)Obesity caused by energy imbalance; Translations: [Morbid (severe) obesity due to excess calories]Onset: 500774-53-7462GgmrlauHijkx upper respiratory disease (10 sources)Allergic rhinitis; Translations: [Allergic rhinitis, unspecified] Onset: 754339-78-8004FwzaktdVsvfftto codes; unclassified (15 sources)Edema of lower extremity; Translations: [Localized edema]Onset: 020666-79-8604BuddkdeqXtbdhdid codes; unclassified (10 sources)Noncompliance with treatment; Translations: [Non-compliant patient] Onset: 149146-54-3108YcgctkzzFyrotzrxeg arthritis and related disease (20 sources)Rheumatoid arthritis with rheumatoid factor of multiple sites without organ or systems involvement;Translations: [Rheumatoid arthritis]Onset: 10-06-2016 Resolved: 07-64-9302GarisovIgudrivsw-related disorders (17 sources)Smoker; Translations: [Nicotine dependence, unspecified, uncomplicated]Onset: 10-06-2016 Resolved: 875890-57-7968OsqawinMgujvim disorders (19 sources)Hypothyroidism, unspecified; Translations: [Hypothyroidism]Onset: 52-38-6329ActtwwiSgfvqvnduvbq (1 source)Unknown / UNK(Unknown)Onset: 04-15-2018 Past or Other Problems Problem ClassificationProblemDateDocumented DateEpisodic/ChronicDiabetes mellitus without complication (9 sources)Type 2 diabetes mellitus without complication; Translations: [Type 2 diabetes mellitus without complications]Onset: 11-22-2023 Resolved: 893670-42-5127FzdnzlkCgza disorders (9 sources)Mood disordersOnset: 12-13-2023 Resolved: Other connective tissue disease (9 sources)Calcaneal spur of left foot; Translations: [Calcaneal spur, left foot]Onset: 353310-86-1157DlxjgzuaUomrf nutritional; endocrine; and metabolic disorders (9 sources)Morbid obesity; Translations: [Morbid (severe) obesity due to excess calories]Onset: 10-06-2016 Resolved: 294249-77-3707EvadrlrAfrlsotg codes; unclassified (11 sources)Tobacco user; Translations: [Tobacco use]Onset: 12-13-2023 Resolved: 289080-32-2884Laxvqwpm Results Test NameValueInterpretationReference RangeFacilityALL CBC WITH AUTO DIFFon 40-37-6001IGUXPIJTN ABSOLUTE RCSU4ZMAH HealthcareBasophils/100 WBC (Bld)0.3 %0.2 - 2.0 %NOMWright Memorial HospitalEosinophils/100 WBC (Bld)6.1 %0.9 - 7.0 %[facility] Erythrocyte distribution width (RBC) [Ratio]14.9 %11.0 - 15.0 %[facility] Hematocrit (Bld) [Volume fraction]46.7 %36.0 - 48.0 %[facility]ettHemoglobin (Bld) [Mass/Vol]15 g/dL12.0 - 16.0 g/dLNOBates County Memorial HospitalIMMATURE GRANULOCYTES ABS AUTO0.02NOBates County Memorial HospitalImmature granulocytes/100 WBC (Bld)0.3 %0.0 - 0.5 %[facility]ettInterpretation and review of laboratory resultsAbnormalNOBates County Memorial Hospital LYMPHOCYTES ABSOLUTE AUTO1.9NOBates County Memorial HospitalLymphocytes/100 WBC (Bld)26 %20.5 - 60.0 %[facility]ettMCH (RBC) [Entitic mass]33.6 pg26.7 - 34.0 pgNOFreeman Health SystemHC (RBC) [Mass/Vol]32.1 g/dL29.9 - 35.2 g/dLCox MonettMCV (RBC) [Entitic vol]104.5 yKDlvz26.0 - 99.0 fLNOBates County Memorial HospitalMONOCYTES ABSOLUTE AUTO 0.6NOMS HealthcareMonocytes/100 WBC (Bld)7.5 %1.7 - 12.0 %[facility] NEUTROPHILS ABSOLUTE AUTO4.4NOBates County Memorial HospitalNeutrophils/100 WBC (Bld)59.8 %43.0 - 75.0 %[facility]ettPlatelet mean volume (Bld) [Entitic vol]9 fLLow9.5 - 13.5 fLCox MonettTBH EO #0.5NOMS [facility] [id number] [facility] RBC4.47 NOMPhelps Health WBC7.3NOBates County Memorial HospitalCLINISYNCNOMS HealthcareALL CBC WITH AUTO DIFFon 96-16-0727KBSIGPMYM ABSOLUTE RZUE7PRUVBates County Memorial HospitalBasophils/100 WBC (Bld)0.3 %0.2 - 2.0 %[facility]ettEosinophils/100 WBC (Bld)4.4 %0.9 - 7.0 % [facility]ettErythrocyte distribution width (RBC) [Ratio]14.6 %11.0 - 15.0 % [facility]ettHematocrit (Bld) [Volume fraction]47.5 %36.0 - 48.0 %[facility]ettHemoglobin (Bld) [Mass/Vol]15.3 g/dL12.0 - 16.0 g/dLCox [facility]ett IMMATURE GRANULOCYTES ABS AUTO0.03NOBates County Memorial HospitalImwvture granulocytes/100 WBC (Bld)0.4 %0.0 - 0.5 %[facility]ettInterpretation and review of laboratory resultsAbnormalCox MonettLYMPHOCYTES ABSOLUTE AUTO1.3NOBates County Memorial Hospital Lymphocytes/100 WBC (Bld)15.8 %Low20.5 - 60.0 %[facility] LouisH (RBC) [Entitic mass]33.7 pg26.7 - 34.[address] LouisHC (RBC) [Mass/Vol]32.2 g/dL29.9 - 35.2 g/dLMercy Hospital St. LouisV (RBC) [Entitic vol]104.6 rJQgte87.0 - 99.0 fLCox MonettMONOCYTES ABSOLUTE AUTO0.5NOBates County Memorial HospitalMonocytes/100 WBC (Bld)6.4 % 1.7 - 12.0 %[facility]ettNEUTROPHILS ABSOLUTE AUTO5.8NONE [facility] Neutrophils/100 WBC (Bld)72.7 %43.0 - 75.0 %[facility] HealthcarePlatelet mean volume (Bld) [Entitic vol]9.1 fLLow9.5 - 13.5 fLNONE HealthcareTBH EO #0.4NOMS HealthcareTBH [id number] [facility] Health AdministrationTB RBC4.54NOMS [facility] AdministrationTB [id number] HealthcareCLINISYNCNOMS HealthcareMLR HEMOGLOBIN A1Con 47-43-5551Fltufll [Mass/Vol]111 mg/dLNOBates County Memorial HospitalXovnydxbmqPlG1a (Bld) [Mass fraction]5.5 %4.5 - 6.2 % [facility] HealthcareComment on above:ADA RECOMMENDED LIMIT 4.0 - 6.0 ADA THERAPEUTIC TARGET < 7.0 ACTION SUGGESTED > 7.0 CLINISYNCNOBates County Memorial HospitalCBC AUTO DIFFon 42-90-4546UJCO #0.0 103/ulNormal0.0-0.1 [facility] CenterComment on above:Performed By: #### TSH #### [facility] [address] [place] [address] Dr. Marla VarnerBasophils/100 WBC (Bld)0.1 %Critically low0.2-2.0The [facility]igh HospitalComment on above:Performed By: #### TSH #### [facility] [address] [place] [address] Dr. Marla Velasquez #0.3 103/ulNormal0.0-0.7The [facility] HospitalComment on above: Performed By: #### TSH #### [facility] [address] [place] [address] Dr. Marla Schultzosinophils/100 WBC (Bld)4.6 %Normal0.9-7.0[facility] Comment on above:Performed By: #### TSH #### [facility] [address] [place] [address] Dr. Marla Schultzrythrocyte distribution width (RBC) [Ratio]14.6 %Hetegr79.0-15.0 [facility] CenterComment on above:Performed By: #### TSH #### [facility] [address] [place] [address] Dr. Marla VarnerHematocrit (Bld) [Volume fraction]46.0 %Cofgxb50.0-48.0The [facility] HospitalComment on above:Performed By: #### TSH #### [facility] [address] [place] [address] Dr. Marla VarnerHemoglobin (Bld) [Mass/Vol]15.1 g/bMWlgwsn28.0-16.0The [facility] HospitalComment on above:Performed By: #### TSH #### [facility] [address] [place] [address] Dr. Marla VarnerIG #0.01 10e3/ulNormal0.00-0.03The [facility] HospitalCommackinac straits hospital on above:Performed By: #### TSH #### [facility] [address] [place] [address] Dr. Marla VarnerIG %0.1 %Normal0.0-0.5The [facility] HospitalComment on above: Performed By: #### TSH #### [facility] [address] [place] [address] Dr. Marla Irby #1.3 103/ulNormal1.2-3.8The [facility] HospitalCommackinac straits hospital on above:Performed By: #### TSH #### [facility] [address] [place] [address] Dr. Marla Hydemphocytes/100 WBC (Bld)19.7 %Critically low20.5-60.0The [facility] HospitalCommackinac straits hospital on above:Performed By: #### TSH #### [facility] [address] [place] [address] Dr. Marla VarnerMANUAL DIFF REQNONormalThe [facility]igh HospitalComment on above: Performed By: #### TSH #### [facility] [address] [place] [address] Dr. Marla Townsend (RBC) [Entitic mass]33.6 ttZqcpio78.7-34.0The [facility] HospitalComment on above:Performed By: #### TSH #### [facility] [address] [address] [address] Marla McgrathHC (RBC) [Mass/Vol]32.8 g/aZXeqzua88.9-35.2The [facility] HospitalComment on above:Performed By: #### TSH #### [facility] [address] [place] [address] Dr. Marla McgrathV (RBC) [Entitic vol]102.4 fLCritically high81.0-99.0The [facility] HospitalComment on above:Performed By: #### TSH #### [facility] [address] [place] [address] Dr. Marla Morales #0.5 103/ulNormal0.3-0.8The [facility] HospitalComment on above:Performed By: #### TSH #### [facility] [address] [place] [address] Dr. Marla Messinaocytes/100 WBC (Bld)7.3 %Normal1.7-12.0The [facility] Comment on above:Performed By: #### TSH #### [facility] [address] [place] [address] Dr. Marla Dave #4.6 103/ulNormal1.4-6.5The [facility] HospitalComment on above:Performed By: #### TSH #### [facility] [address] [place] [address] Dr. Marla Mcallisterutrophils/100 WBC (Bld)68.2 %Rdwdbn57.0-75.0The [facility] HospitalComment on above:Performed By: #### TSH #### [facility] [address] [place] [address] Dr. Marla Obrienlet mean volume (Bld) [Entitic vol]9.1 fLCritically low 9.5-13.5The [facility] HospitalComment on above:Performed By: #### TSH #### [facility] [address] [place] [address] Dr. Marla VarnerPLT194 103/lcCjjzzi814-280Clk [facility] HospitalComment on above: Performed By: #### TSH #### [facility] [address] [place] [address] Dr. Marla VarnerRBC4.49 106/ulNormal4.20-5.40The [facility] on above:Performed By: #### TSH #### [facility] [address] [place] [address] Dr. Marla VarnerWBC6.7 103/ulNormal4.0-11.0The [facility] Medical Centerment on above: Performed By: #### TSH #### [facility] [address] [place] [address] Dr. Marla BeardF 14(COMP METB)on 98-83-3581Fvkywvd [Mass/Vol]3.6 g/dLNormal 3.4-5.0The [facility] on above:Performed By: #### URIC, CMP #### [facility] [address] [place] [address] Dr. Marla VarnerAlbumin/Globulin [Mass ratio]1.0 {ratio}NormalThe [facility] on above:Performed By: #### URIC, CMP #### [facility] [address] [place] [address] Dr. Marla Bynum [Catalytic activity/Vol]93 U/SNuuukq56-400Zxi [facility] on above:Performed By: #### URIC, CMP #### [facility] [address] [place] [address] Dr. Marla Altamirano [Catalytic activity/Vol]26 U/QGfxeha16-48Abd [facility] on above:Performed By: #### URIC, CMP #### [facility] [facility] [address] [place] [address] Dr. Marla Rowell gap [Moles/Vol]12.3 mmol/LNormalThe [facility] on above:Performed By: #### URIC, CMP #### [facility] [address] [place] [address] Dr. Marla Reyes [Catalytic activity/Vol]20 U/QIwtafn34-08Bny [facility] HospitalComment on above:Performed By: #### URIC, CMP #### [facility] [address] [address] [address] Marla VarnerBilirubin [Mass/Vol]0.4 mg/dLNormal0.2-1.0The [facility] Comment on above:Performed By: #### URIC, CMP #### [facility] [address] [place] [address] Dr. Marla VarnerCalcium [Mass/Vol]9.2 mg/dLNormal8.5-10.1The [facility] Comment on above:Performed By: #### URIC, CMP #### [facility] [address] [place] [address] Dr. Marla VarnerChloride [Moles/Vol]102 mmol/TIsqxku27-240Nch [facility] Comment on above:Performed By: #### URIC, CMP #### [facility] [address] [place] [address] Dr. Marla VarnerCO2 [Moles/Vol]32.3 mmol/LCritically high21.0-32.0The [facility] HospitalComment on above:Performed By: #### URIC, CMP #### [facility] [address] [place] [address] Dr. Marla VarnerCreatinine [Mass/Vol]0.84 mg/dLNormal0.55-1.02The [facility] HospitalComment on above:Performed By: #### URIC, CMP #### [facility] [address] [place] [address] Dr. Marla SchultzGFR-AF SCOTTISH>60Normal>=60The [facility] HospitalComment on above:Performed By: #### URIC, CMP #### [facility] [address] [place] [address] Dr. Marla SchultzGFR-NON AF SCOTTISH>60Normal>=60The [facility]Commack[facility] on above:Performed By: #### URIC, CMP #### [facility] [address] [place] [address] Dr. Marla VarnerGlobulin (S) [Mass/Vol]3.7 g/dLNormalThe Center HospitalComment on above:Performed By: #### URIC, CMP #### [facility] [address] [address] [address] Marla VarnerGlucose [Mass/Vol]114 mg/dLCritically xjih34-443Wrx [facility] HospitalComment on above:Performed By: #### URIC, CMP #### [facility] [address] [place] [address] Dr. Marla VarnerPotassium [Moles/Vol]4.6 mmol/LNormal3.5-5.1The [facility] Comment on above:Performed By: #### URIC, CMP #### [facility] [address] [place] [address] Dr. Marla VarnerProtein [Mass/Vol]7.3 g/dLNormal6.4-8.2[facility] Comment on above:Performed By: #### URIC, CMP #### [facility] [address] [place] [address] Dr. aMrla VarnerSodium [Moles/Vol]142 mmol/TFxbrtn702-264Znk [facility] Comment on above:Performed By: #### URIC, CMP #### [facility] [address] [place] [address] Dr. Marla VarnerUrea nitrogen [Mass/Vol]15.0 mg/dLNormal7.0-18.0The [facility] HospitalComment on above:Performed By: #### URIC, CMP #### [facility] [address] [place] [address] Dr. Marla Vital nitrogen/Creatinine [Mass ratio]17.9 mg/mgNoAultman HospitalComment on above:Performed By: #### URIC, CMP #### [facility] [address] [place] [address] Dr. Marla VarnerSED RATE WESTERGRENon 48-56-1237NMS RATE47 mm/hrCritically high <=30The [facility] HospitalComment on above:Performed By: #### SEDR #### [facility] [address] [place] [address] Dr. Marla Leavitt ACID SERUMon [id number] [Mass/Vol]3.3 mg/dLNormal 2.6-6.0The [facility] HospitalComment on above:Performed By: #### URIC, CMP #### [facility] [address] [place] [address] Dr. Marla Lowe AUTO DIFFon [id number] #0.0 103/ulNormal0.0-0.1The [facility] HospitalComment on above:Performed By: #### INSULT #### [facility] [address] [place] [address] Dr. Marla VarnerBasophils/100 WBC (Bld)0.3 %Normal0.2-2.0The [facility] Comment on above:Performed By: #### INSULT #### [facility] [address] [place] [address] Dr. Gutiérrez ChangEO #0.4 103/ulNormal0.0-0.7The [facility] HospitalComment on above: Performed By: #### INSULT #### [facility] [address] [place] [address] Dr. Marla Schultzosinophils/100 WBC (Bld)5.8 %Normal0.9-7.0The [facility] Comment on above:Performed By: #### INSULT #### [facility] [address] [place] [address] Dr. Marla Schultzrythrocyte distribution width (RBC) [Ratio]14.8 %Jbkdbm10.0-15.0 The [facility] HospitalComment on above:Performed By: #### INSULT #### [facility] [address] [place] [address] Dr. Marla VarnerHematocrit (Bld) [Volume fraction]44.4 %Hjojpl97.0-48.0The [facility] HospitalComment on above:Performed By: #### INSULT #### [facility] [address] [place] [address] Dr. Marla VarnerHemoglobin (Bld) [Mass/Vol]14.6 g/vCWdsxrb68.0-16.0The [facility] HospitalComment on above:Performed By: #### INSULT #### [facility] [address] [address] [address] Marla Quezada #0.02 10e3/ulNormal0.00-0.03The [facility] on above:Performed By: #### INSULT #### [facility] [address] [place] [address] Dr. Marla Quezada %0.3 %Normal0.0-0.5The [facility] HospitalComment on above: Performed By: #### INSULT #### [facility] [address] [place] [address] Dr. Marla Irby #1.6 103/ulNormal1.2-3.8The [facility] on above:Performed By: #### INSULT #### [facility] [address] [place] [address] Dr. Marla Ibarrahocytes/100 WBC (Bld)21.6 %Nytqwu83.5-60.0The [facility] on above:Performed By: #### INSULT #### [facility] [address] [place] [address] Dr. Marla TranUAL DIFF REQNONormalThe [facility] HospitalCommackinac straits hospital on above: Performed By: #### INSULT #### [facility] [address] [place] [address] Dr. Marla Mcgrath (RBC) [Entitic mass]33.8 vpGpniyw08.7-34.0The [facility] HospitalComment on above:Performed By: #### INSULT #### [facility] [address] [place] [address] Dr. Marla Mcgrath (RBC) [Mass/Vol]32.9 g/iNAzehon81.9-35.2The [facility] Centerment on above:Performed By: #### INSULT #### [facility] [address] [place] [address] Dr. Marla Mcgrath (RBC) [Entitic vol]102.8 fLCritically high81.0-99.0The Center HospitalComment on above:Performed By: #### INSULT #### [facility] [address] [address] [address] Marla Morales #0.5 103/ulNormal0.3-0.8The [facility] HospitalComment on above:Performed By: #### INSULT #### [facility] [address] [address] [address] Marla Messinaocytes/100 WBC (Bld)6.9 %Normal1.7-12.0The [facility] Comment on above:Performed By: #### INSULT #### [facility] [address] [place] [address] Dr. Marla Dave #4.7 103/ulNormal1.4-6.5The [facility] HospitalComment on above:Performed By: #### INSULT #### [facility] [address] [place] [address] Dr. Marla Mcallisterutrophils/100 WBC (Bld)65.1 %Frjwon94.0-75.0The [facility] HospitalComment on above:Performed By: #### INSULT #### [facility] [address] [place] [address] Dr. Marla Walden mean volume (Bld) [Entitic vol]9.3 fLCritically low 9.5-13.5The [facility] HospitalComment on above:Performed By: #### INSULT #### [facility] [address] [place] [address] Dr. Marla VarnerPLT200 103/ikJggkwi403-931Qcr [facility] HospitalComment on above: Performed By: #### INSULT #### [facility] [address] [place] [address] Dr. Marla VarnerRBC4.32 106/ulNormal4.20-5.40The [facility] HospitalComment on above:Performed By: #### INSULT #### [facility] [address] [place] [address] Dr. Marla VarnerWBC7.2 103/ulNormal4.0-11.0The [facility] HospitalComment on above: Performed By: #### INSULT #### [facility] [address] [place] [address] Dr. Marla Love T3on 47-81-9672TSJR T32.20 pg/mlLNormal2.18-3.98The [facility] Centerment on above:Performed By: #### TSH #### [facility] [address] [place] [address] Dr. Marla Love T4on 68-21-3363Nxrw T4 [Mass/Vol]1.30 ng/dLNormal0.76-1.46 The [facility] HospitalComment on above:Performed By: #### TSH #### [facility] [address] [place] [address] Dr. Marla Solis 14(COMP METB)on 89-41-3310Qbcrdfc [Mass/Vol]3.4 g/dLNormal 3.4-5.0The [facility] HospitalComment on above:Performed By: #### CMP, URIC #### [facility] [address] [place] [address] Dr. Marla VarnerAlbumin/Globulin [Mass ratio]0.9 {ratio}NormalThe [facility] Centerment on above:Performed By: #### CMP, URIC #### [facility] [address] [place] [address] Dr. Marla Bynum [Catalytic activity/Vol]92 U/BEwhwcb93-479Dzy [facility] Centerment on above:Performed By: #### CMP, URIC #### [facility] [address] [place] [address] Dr. Marla Altamirano [Catalytic activity/Vol]17 U/ZJzllfu12-13Vxc [facility] Centerment on above:Performed By: #### CMP, URIC #### [facility] [address] [place] [address] Dr. Marla Rowell gap [Moles/Vol]10.7 mmol/LNormalThe [facility] on above:Performed By: #### CMP, URIC #### [facility] [address] [address] [address] Marla VarnerAST [Catalytic activity/Vol]17 U/DEwmkwf63-86Pfb [facility] HospitalComment on above:Performed By: #### CMP, URIC #### [facility] [address] [address] [address] Marla VarnerBilirubin [Mass/Vol]0.4 mg/dLNormal0.2-1.0The [facility] Comment on above:Performed By: #### CMP, URIC #### [facility] [address] [place] [address] Dr. Marla VarnerCalcium [Mass/Vol]8.8 mg/dLNormal8.5-10.1The [facility] Comment on above:Performed By: #### CMP, URIC #### [facility] [address] [place] [address] Dr. Marla VarnerChloride [Moles/Vol]101 mmol/ODotphd36-008Hdw [facility] Comment on above:Performed By: #### CMP, URIC #### [facility] [address] [place] [address] Dr. Marla VarnerCO2 [Moles/Vol]32.5 mmol/LCritically high21.0-32.0The [facility] HospitalComment on above:Performed By: #### CMP, URIC #### [facility] [address] [place] [address] Dr. Marla VarnerCreatinine [Mass/Vol]0.72 mg/dLNormal0.55-1.02The [facility] HospitalComment on above:Performed By: #### CMP, URIC #### [facility] [address] [place] [address] Dr. Marla SchultzGFR-AF SCOTTISH>60Normal>=60The [facility] HospitalComment on above:Performed By: #### CMP, URIC #### [facility] [address] [place] [address] Dr. Marla SchultzGFR-NON AF SCOTTISH>60Normal>=60The [facility] HospitalComment on above:Performed By: #### CMP, URIC #### [facility] [address] [address] [address] Marla VarnerGlobulin (S) [Mass/Vol]3.8 g/dLNormWayne HospitalComment on above:Performed By: #### CMP, URIC #### [facility] [address] [address] [address] Marla VarnerGlucose [Mass/Vol]101 mg/qNUkkzhx83-752Yip [facility] Comment on above:Performed By: #### CMP, URIC #### [facility] [address] [address] [address] Marla VarnerPotassium [Moles/Vol]4.2 mmol/LNormal3.5-5.1The [facility] Comment on above:Performed By: #### CMP, URIC #### [facility] [address] [address] [address] Marla VarnerProtein [Mass/Vol]7.2 g/dLNormal6.4-8.2The [facility] Comment on above:Performed By: #### CMP, URIC #### [facility] [address] [address] [address] Marla VarnerSodium [Moles/Vol]140 mmol/QBaejfu396-397Vld [facility] Comment on above:Performed By: #### CMP, URIC #### [facility] [address] [address] [address] Marla VarnerUrea nitrogen [Mass/Vol]11.0 mg/dLNormal7.0-18.0The [facility] HospitalComment on above:Performed By: #### CMP, URIC #### [facility] [address] [address] [address] Marla Vital nitrogen/Creatinine [Mass ratio]15.3 mg/mgNoAultman HospitalComment on above:Performed By: #### CMP, URIC #### [facility] [address] [address] [address] Marla Noel RATE WESTERGRENon 24-95-9326VQF RATE51 mm/hrCritically high <=30The [facility] HospitalComment on above:Performed By: #### SEDR #### [facility] [address] [place] [address] Dr. Marla PattonHocharlene 14-07-5861NYQ1.307 uIU/mLNormal0.358-3.740The [facility] HospitalComment on above:Performed By: #### TSH #### [facility] [address] [place] [address] Dr. Marla VarnerURIC ACID SERUMon [id number] [Mass/Vol]3.2 mg/dLNormal 2.6-6.0The [facility] HospitalComment on above:Performed By: #### CMP, URIC #### [facility] [address] [place] [address] Dr. Marla VarnerINSULIN FREE AND TOTALon 98-27-2645Hdfx Bagfylv16 uU/mLNormalCommunity Regional Medical CenterComment on above:Result Comment: Reference Range: Pubertal Children and Adults (fasting): 0 - 17Performed By: #### INSULT #### [facility] [address] [place] [address] Dr. Marla VarnerTotal Fdsdssh53 uU/mLNormalCommunity Regional Medical CenterCommackinac straits hospital on above: Result Comment: Non-Diabetic: In the [...] developed and its performance characteristics determined by [employer]. It has not been cleared or approved by the Food and Drug Administration.Performed By: #### INSULT #### [facility] [address] [place] [address] Dr. Marla VarnerCBC AUTO DIFFon [id number] #0.0 103/ulNormal0.0-0.1The [facility] on above:Performed By: #### TSH #### [facility] [address] [address] [address] Marla VarnerBasophils/100 WBC (Bld)0.3 %Normal0.2-2.0The [facility] Comment on above:Performed By: #### TSH #### [facility] [address] [address] [address] Marla Velasquez #0.2 103/ulNormal0.0-0.7The [facility] HospitalComment on above: Performed By: #### TSH #### [facility] [address] [place] [address] Dr. Marla Schultzosinophils/100 WBC (Bld)2.7 %Normal0.9-7.0The [facility] Comment on above:Performed By: #### TSH #### [facility] [address] [place] [address] Dr. Marla Schultzrythrocyte distribution width (RBC) [Ratio]14.8 %Iqtuqp11.0-15.0 The [facility] HospitalComment on above:Performed By: #### TSH #### [facility] [address] [place] [address] Dr. Marla VarnerHematocrit (Bld) [Volume fraction]47.6 %Sjvojr24.0-48.0The [facility] HospitalComment on above:Performed By: #### TSH #### [facility] [address] [place] [address] Dr. Marla VarnerHemoglobin (Bld) [Mass/Vol]15.4 g/jYPposrw37.0-16.0The [facility] HospitalComment on above:Performed By: #### TSH #### [facility] [address] [place] [address] Dr. Marla Quezada #0.03 10e3/ulNormal0.00-0.03The [facility] HospitalComment on above:Performed By: #### TSH #### [facility] [address] [place] [address] Dr. Marla Quezada %0.4 %Normal0.0-0.5The [facility] HospitalComment on above: Performed By: #### TSH #### [facility] [address] [address] [address] Marla Irby #1.6 103/ulNormal1.2-3.8The [facility] HospitalCommackinac stra[facility] hospital on above:Performed By: #### TSH #### [facility] [address] [place] [address] Dr. Marla Ibarrahocytes/100 WBC (Bld)21.1 %Azxszd17.5-60.0The [facility] HospitalCommackinac straits hospital on above:Performed By: #### TSH #### [facility] [address] [place] [address] Dr. Marla Rivas DIFF REQNONormalThe [facility] HospitalCommackinac straits hospital on above: Performed By: #### TSH #### [facility] [address] [place] [address] Dr. Marla Mcgrath (RBC) [Entitic mass]34.2 pgCritically high26.7-34.0The [facility] on above:Performed By: #### TSH #### [facility] [address] [place] [address] Dr. Marla Mcgrath (RBC) [Mass/Vol]32.4 g/fBIitudq75.9-35.2The [facility] on above:Performed By: #### TSH #### [facility] [address] [place] [address] Dr. Marla Mcgrath (RBC) [Entitic vol]105.8 fLCritically high81.0-99.0The [facility] on above:Performed By: #### TSH #### [facility] [address] [place] [address] Dr. Marla Morales #0.5 103/ulNormal0.3-0.8The [facility] on above:Performed By: #### TSH #### [facility] [address] [place] [address] Dr. Marla Messinaocytes/100 WBC (Bld)7.4 %Normal1.7-12.0The [facility] Comment on above:Performed By: #### TSH #### [facility] [address] [place] [address] Dr. Marla McallisterUT #5.0 103/ulNormal1.4-6.5The [facility] HospitalComment on above:Performed By: #### TSH #### [facility] [address] [place] [address] Dr. Marla Mcallisterutrophils/100 WBC (Bld)68.1 %Fmnljs50.0-75.0The [facility] HospitalComment on above:Performed By: #### TSH #### [facility] [address] [place] [address] Dr. Marla Walden mean volume (Bld) [Entitic vol]10.5 fLNormal9.5-13.5The [facility] HospitalComment on above:Performed By: #### TSH #### [facility] [address] [place] [address] Dr. Marla VarnerPLT207 103/fzGonabz572-429Yne [facility] HospitalComment on above: Performed By: #### TSH #### [facility] [address] [place] [address] Dr. Marla VarnerRBC4.50 106/ulNormal4.20-5.40The [facility] HospitalComment on above:Performed By: #### TSH #### [facility] [address] [place] [address] Dr. Marla VarnerWBC7.3 103/ulNormal4.0-11.0The [facility] HospitalComment on above: Performed By: #### TSH #### [facility] [address] [place] [address] Dr. Marla Love T4on 95-60-0232Yqus T4 [Mass/Vol]1.75 ng/dLCritically high 0.76-1.46The [facility] HospitalComment on above:Performed By: #### TSH #### [facility] [address] [place] [address] Dr. Yilan ChangPROF 14(COMP METB)on 46-01-9637Ladjntj [Mass/Vol]3.7 g/dLNormal 3.4-5.0The [facility] HospitalComment on above:Performed By: #### INSULT #### [facility] [address] [place] [address] Dr. Marla VarnerAlbumin/Globulin [Mass ratio]1.0 {ratio}NormalThe [facility] HospitalComment on above:Performed By: #### INSULT #### [facility] [address] [place] [address] Dr. Marla GarcíaP [Catalytic activity/Vol]99 U/SNldxgf62-849Mtz [facility] HospitalComment on above:Performed By: #### INSULT #### [facility] [address] [place] [address] Dr. Marla GarcíaT [Catalytic activity/Vol]25 U/EKanizy38-40Stf [facility] HospitalComment on above:Performed By: #### INSULT #### [facility] [address] [place] [address] Dr. Marla Farraron gap [Moles/Vol]15.7 mmol/LNormalThe [facility] Comment on above:Performed By: #### INSULT #### [facility] [address] [place] [address] Dr. Marla VarnerAST [Catalytic activity/Vol]20 U/NXvuxae09-64Hww [facility] HospitalComment on above:Performed By: #### INSULT #### [facility] [address] [place] [address] Dr. Marla VarnerBilirubin [Mass/Vol]0.4 mg/dLNormal0.2-1.0The [facility] Comment on above:Performed By: #### INSULT #### [facility] [address] [place] [address] Dr. Marla VarnerCalcium [Mass/Vol]8.9 mg/dLNormal8.5-10.1The [facility] Comment on above:Performed By: #### INSULT #### [facility] [address] [place] [address] Dr. Marla VarnerChloride [Moles/Vol]99 mmol/EDhosgk19-979Arb [facility] Comment on above:Performed By: #### INSULT #### [facility] [address] [place] [address] Dr. Marla VarnerCO2 [Moles/Vol]25.3 mmol/VBkcyqx68.0-32.0The [facility] Comment on above:Performed By: #### INSULT #### [facility] [address] [place] [address] Dr. Marla VarnerCreatinine [Mass/Vol]0.80 mg/dLNormal0.55-1.02The [facility] HospitalComment on above:Performed By: #### INSULT #### [facility] [address] [place] [address] Dr. Marla SchultzGFR-AF SCOTTISH>60Normal>=60The [facility] HospitalComment on above:Performed By: #### INSULT #### [facility] [address] [place] [address] Dr. Marla SchultzGFR-NON AF SCOTTISH>60Normal>=60The [facility] HospitalComment on above:Performed By: #### INSULT #### [facility] [address] [place] [address] Dr. Marla VarnerGlobulin (S) [Mass/Vol]3.6 g/dLNormalThe [facility] HospitalComment on above:Performed By: #### INSULT #### [facility] [address] [place] [address] Dr. Marla VarnerGlucose [Mass/Vol]113 mg/dLCritically nkmc47-252Jol [facility] HospitalComment on above:Performed By: #### INSULT #### [facility] [address] [place] [address] Dr. Marla VarnerPotassium [Moles/Vol]4.0 mmol/LNormal3.5-5.1The [facility] Comment on above:Performed By: #### INSULT #### [facility] [address] [place] [address] Dr. Marla VarnerProtein [Mass/Vol]7.3 g/dLNormal6.4-8.2The [facility] Comment on above:Performed By: #### INSULT #### [facility] [address] [place] [address] Dr. Marla VarnerSodium [Moles/Vol]136 mmol/OUlypyg356-483Bvh [facility] Comment on above:Performed By: #### INSULT #### [facility] [address] [place] [address] Dr. Marla VarnerUrea nitrogen [Mass/Vol]10.0 mg/dLNormal7.0-18.0The [facility] HospitalComment on above:Performed By: #### INSULT #### [facility] [address] [place] [address] Dr. Marla Vital nitrogen/Creatinine [Mass ratio]12.5 mg/mgNormalThe [facility] HospitalComment on above:Performed By: #### INSULT #### [facility] [address] [place] [address] Dr. Marla Noel RATE WESTERGRENon 43-44-0120OPS RATE34 mm/hrCritically high <=30The [facility] HospitalComment on above:Performed By: #### TSH #### [facility] [address] [place] [address] Dr. Marla Joyce 92-99-9472JGQ9.152 uIU/mLCritically low0.358-3.740The [facility] HospitalComment on above:Performed By: #### TSH #### [facility] [address] [place] [address] Dr. Marla VarnerURIC ACID SERUMon 08-15-4805Dqxpf [Mass/Vol]3.3 mg/dLNormal 2.6-6.0The [facility] HospitalComment on above:Performed By: #### INSULT #### [facility] [address] [place] [address] Dr. Marla Lowe AUTO DIFFon [id number] #0.0 103/ulNormal0.0-0.1The [facility] HospitalComment on above:Performed By: #### TSH #### [facility] [address] [place] [address] Dr. Marla VarnerBasophils/100 WBC (Bld)0.1 %Critically low0.2-2.0The [facility] Centerment on above:Performed By: #### TSH #### [facility] [address] [place] [address] Dr. Marla Velasquez #0.4 103/ulNormal0.0-0.7The [facility] HospitalComment on above: Performed By: #### TSH #### [facility] [address] [place] [address] Dr. Marla Schultzosinophils/100 WBC (Bld)5.1 %Normal0.9-7.0The [facility] Comment on above:Performed By: #### TSH #### [facility] [address] [place] [address] Dr. Marla Schultzrythrocyte distribution width (RBC) [Ratio]14.5 %Btmrro57.0-15.0 The [facility] HospitalComment on above:Performed By: #### TSH #### [facility] [address] [place] [address] Dr. Marla VarnerHematocrit (Bld) [Volume fraction]45.7 %Msotxx05.0-48.0The [facility] Centerment on above:Performed By: #### TSH #### [facility] [address] [place] [address] Dr. Marla VarnerHemoglobin (Bld) [Mass/Vol]14.6 g/fUVkndkl45.0-16.0The [facility] Centerment on above:Performed By: #### TSH #### [facility] [address] [place] [address] Dr. Marla Quezada #0.03 10e3/ulNormal0.00-0.03The [facility] HospitalComment on above:Performed By: #### TSH #### [facility] [address] [place] [address] Dr. Marla Quezada %0.4 %Normal0.0-0.5The [facility]igh HospitalComment on above: Performed By: #### TSH #### [facility] [address] [address] [address] Marla Irby #0.9 103/ulCritically low1.2-3.8[facility] Comment on above:Performed By: #### TSH #### [facility] [address] [address] [address] Marla Ibarrahocytes/100 WBC (Bld)11.3 %Critically low20.5-60.0The [facility] HospitalComment on above:Performed By: #### TSH #### [facility] [address] [address] [address] Marla Rivas DIFF REQNONormalThe [facility]igh HospitalComment on above: Performed By: #### TSH #### [facility] [address] [place] [address] Dr. Marla Mcgrath (RBC) [Entitic mass]33.4 tsGufxha38.7-34.0The [facility] HospitalComment on above:Performed By: #### TSH #### [facility] [address] [place] [address] Dr. Marla Mcgrath (RBC) [Mass/Vol]31.9 g/gYHqswfp73.9-35.2The [facility] HospitalComment on above:Performed By: #### TSH #### [facility] [address] [place] [address] Dr. Marla Mcgrath (RBC) [Entitic vol]104.6 fLCritically high81.0-99.0The [facility] HospitalComment on above:Performed By: #### TSH #### [facility] [address] [address] [address] Marla Morales #0.3 103/ulNormal0.3-0.8The [facility] HospitalComment on above:Performed By: #### TSH #### [facility] [address] [place] [address] Dr. Marla Messinaocytes/100 WBC (Bld)3.9 %Normal1.7-12.0[facility] Comment on above:Performed By: #### TSH #### [facility] [address] [address] [address] Marla Dave #6.1 103/ulNormal1.4-6.5The [facility] HospitalComment on above:Performed By: #### TSH #### [facility] [address] [place] [address] Dr. Marla Mcallisterutrophils/100 WBC (Bld)79.2 %Critically high43.0-75.0The [facility] HospitalComment on above:Performed By: #### TSH #### [facility] [address] [place] [address] Dr. Marla VarnerPlatelet mean volume (Bld) [Entitic vol]10.4 fLNormal9.5-13.5The [facility] HospitalComment on above:Performed By: #### TSH #### [facility] [address] [place] [address] Dr. Marla VarnerPLT195 103/uaVyznns569-315Sad [facility] HospitalComment on above: Performed By: #### TSH #### [facility] [address] [place] [address] Dr. Marla VarnerRBC4.37 106/ulNormal4.20-5.40The [facility] Centerment on above:Performed By: #### TSH #### [facility] [address] [place] [address] Dr. Marla VarnerWBC7.7 103/ulNormal4.0-11.0The [facility] HospitalComment on above: Performed By: #### TSH #### [facility] [address] [place] [address] Dr. Marla VarnerPROF 14(COMP METB)on 20-45-4722Ceycyxs [Mass/Vol]3.3 g/dL Critically low3.4-5.0The [facility] HospitalComment on above:Performed By: #### URIC, CMP #### [facility] [address] [place] [address] Dr. Yilan ChangAlbumin/Globulin [Mass ratio]0.8 {ratio}NormalThe [facility]igh HospitalComment on above:Performed By: #### URIC, CMP #### [facility] [address] [place] [address] Dr. Marla Bynum [Catalytic activity/Vol]97 U/PYhdklb02-893Afp [facility] HospitalComment on above:Performed By: #### URIC, CMP #### [facility] [address] [place] [address] Dr. Marla Altamirano [Catalytic activity/Vol]26 U/RFdahjd12-42Aom [facility] HospitalComment on above:Performed By: #### URIC, CMP #### [facility] [address] [place] [address] Dr. Marla Rowell gap [Moles/Vol]18.0 mmol/LNormalThe [facility] Comment on above:Performed By: #### URIC, CMP #### [facility] [address] [place] [address] Dr. Marla Reyes [Catalytic activity/Vol]17 U/MGkxjmg26-75Ori [facility] Centerment on above:Performed By: #### URIC, CMP #### [facility] [address] [place] [address] Dr. Marla VarnerBilirubin [Mass/Vol]0.5 mg/dLNormal0.2-1.0[facility] Comment on above:Performed By: #### URIC, CMP #### [facility] [address] [place] [address] Dr. Marla VarnerCalcium [Mass/Vol]8.8 mg/dLNormal8.5-10.1[facility] Comment on above:Performed By: #### URIC, CMP #### [facility] [address] [place] [address] Dr. Marla VarnerChloride [Moles/Vol]100 mmol/HYwoqxe86-092Exz [facility] Comment on above:Performed By: #### URIC, CMP #### [facility] [address] [place] [address] Dr. Marla VarnerCO2 [Moles/Vol]25.3 mmol/GAdoshe94.0-32.0[facility] Comment on above:Performed By: #### URIC, CMP #### [facility] [address] [place] [address] Dr. Marla VarnerCreatinine [Mass/Vol]0.95 mg/dLNormal0.55-1.02The [facility] HospitalComment on above:Performed By: #### URIC, CMP #### [facility] [address] [address] [address] Marla SchultzGFR-AF SCOTTISH>60Normal>=60The [facility] HospitalComment on above:Performed By: #### URIC, CMP #### [facility] [address] [place] [address] Dr. Marla SchultzGFR-NON AF IWYFRVIK94 mL/min/1.59o4Oepauhgial low>=60The [facility] HospitalComment on above:Performed By: #### URIC, CMP #### [facility] [address] [place] [address] Dr. Marla VarnerGlobulin (S) [Mass/Vol]3.9 g/dLNormalThe [facility] HospitalComment on above:Performed By: #### URIC, CMP #### [facility] [address] [place] [address] Dr. Marla VarnerGlucose [Mass/Vol]253 mg/dLCritically jmoz28-625Jes [facility] HospitalComment on above:Performed By: #### URIC, CMP #### [facility] [address] [place] [address] Dr. Marla VarnerPotassium [Moles/Vol]4.3 mmol/LNormal3.5-5.1The [facility] Comment on above:Performed By: #### URIC, CMP #### [facility] [address] [place] [address] Dr. Marla VarnerProtein [Mass/Vol]7.2 g/dLNormal6.4-8.2The [facility] Comment on above:Performed By: #### URIC, CMP #### [facility] [address] [place] [address] Dr. Marla Dowdium [Moles/Vol]139 mmol/GGmscnf934-889Syz [facility] Comment on above:Performed By: #### URIC, CMP #### [facility] [address] [place] [address] Dr. Marla Vital nitrogen [Mass/Vol]13.0 mg/dLNormal7.0-18.0The [facility] HospitalComment on above:Performed By: #### URIC, CMP #### [facility] [address] [place] [address] Dr. Marla Vital nitrogen/Creatinine [Mass ratio]13.6 mg/mgNormalThe [facility] HospitalComment on above:Performed By: #### URIC, CMP #### [facility] [address] [place] [address] Dr. Marla Noel RATE WESTERGRENon 34-58-3510MJE RATE35 mm/hrCritically high <=30The [facility] HospitalComment on above:Performed By: #### TSH #### [facility] [address] [place] [address] Dr. Marla Leavitt ACID SERUMon 03-76-0664Rrsvt [Mass/Vol]3.6 mg/dLNormal 2.6-6.0The [facility] HospitalComment on above:Performed By: #### URIC, CMP #### [facility] [address] [place] [address] Dr. Marla VarnerXR DEXA BONE DENSITYon 88-82-1167TD DEXA BONE DENSITYEXAMINATION: XR DEXA BONE DENSITY, [...] Electronically authenticated by: KALEIGH SUTHERLAND Date: 2022-01-19 11:23[facility] CenterCNOVSPon 67-95-3372VSWFJZZnqnn (SP) Office (GYNOSA) --------EUNICE CASTILLO ([id number]) 1950 FDate Time Provider Department10/21/18 10:40 AM [...] this office note were sent to:[place] [address]?CC:Yimi Montemayor DO (PCP)Referring Provider: BLAINE THOMPSON [[id number]]Allergies As of Date: 10/21/2018 Noted Allergy ReactionPENICILLINS [...] (VIT B-12) 1,0* Inject 1,000 mcg intramuscula* [id number] MG CAPSULE Take 100 mg by mouth [...] More...Encounter Status:Closed by BLAINE THOMPSON MD on 10/23/18NoWilson Memorial Hospitalon 42-28-0571Vxagnij mass conc HNO ID: [id number]: Blaine Maldonadoervice: (none)Author Type: PhysicianType: Progress NotesFiled: [...] this office note were sent to:[place] [address]?CC:Yimi Montemayor DO (PCP)NormalKindred Hospital DaytonCNOVon 75-81-6428YIKQOuhacn Visit (GYNOSA) --------EUNICE CASTILLO ([id number]) 1950 FDate Time Provider Department04/15/18 8:00 AM [...] I advised her to follow with her signals officer f or routine health and gynmaintenance exams3. I will see her in 6 monthsBlaine Thompson MD, MPH25 min spent with the patient with >50% face to face counselingA letter and a copy of this office note were sent to:[place] [address]?CC:Yimi Montemayor DO (PCP)Referring Provider: BLAINE THOMPSON [[id number]]Allergies As of Date: 04/15/2018 Noted Allergy ReactionPENICILLINS [...] More... Status:Closed by BLAINE THOMPSON MD on 04/15/18[facility] 32-53-4489Ekozgtp mass concHNO ID: [id number]: Blaine Maldonadoervice: (none)Author Type: PhysicianType: Progress NotesFiled: [...] I advised her to follow with her signals officer for routine health andgyn maintenance exams3. I will see her in 6 monthsBlaine Thompson MD, MPH25 min spent with the patient with >50% face to face counselingA letter and a copy of this office note were sent to:[place] [address]?CC:Yimi Montemayor DO (PCP)NormalKindred Hospital Dayton Vital Signs Date TimeVital SignValuePerforming SsqnyrmmwCvdcxwcl37-78-7956 10:59-0400Body yklexc199.1 Donna LARA Work Phone: [facility]09-29-2025 10:59-0400 Body mass index (BMI) [Ratio]40.4 kg/m2Lisa Milton LARA Work Phone: [facility]09-29-2025 10:59-0400 Body tkxwuvxcbqy24.7 [degF]Brunilda Aichholz BUSINESS INTEGRATION ANALYST-C Work Phone: [phone] [place], [place] [address]26509-29-2025 10:59-0400 Body xttirb038.27 kgLisa Aichholz BUSINESS INTEGRATION ANALYST-C Work Phone: [phone] [place], [place] 2726509-29-2025 10:59-0400 Diastolic blood rxmoedqr26 mm[Hg]Brunilda Aichholz BUSINESS INTEGRATION ANALYST-C Work Phone: [phone]09-29-2025 10:59-0400 Heart rate63 /minLisa Aichholz BUSINESS INTEGRATION ANALYST-C Work Phone: [phone]09-29-2025 10:59-0400 Respiratory rate18 /minLisa Aichholz BUSINESS INTEGRATION ANALYST-C Work Phone: [phone] [place], [place] [address]509-29-2025 10:59-0400 SaO2% (BldA) [Mass fraction]97 %Brunilda Aichholz BUSINESS INTEGRATION ANALYST-C Work Phone: [phone] [place], [place] [address]509-29-2025 10:59-0400 Systolic blood ogpijakk489 mm[Hg]Brunilda Aichholz BUSINESS INTEGRATION ANALYST-C Work Phone: [phone] [place], [place] 2726503-05-2025 10:30-0500 Body .6 cmLisa Aichholz BUSINESS INTEGRATION ANALYST Work Phone: [facility]Zrtoqlwbty58-71-7128 10:30-0500Body mass index (BMI) [Ratio]41.95 kg/m2Lisa Aichholz BUSINESS INTEGRATION ANALYST Work Phone: [facility]ettFjnzvbnwwe32-53-2376 10:30-0500Body temperature 98.29 [degF]Brunilda Aichholz BUSINESS INTEGRATION ANALYST Work Phone: [facility]ettOqjllacjhv67-87-0413 10:30-0500Body rxruei813.86 kgLisa Aichholz BUSINESS INTEGRATION ANALYST Work Phone: [facility]ettBejndfxgcq15-84-9279 10:30-0500Diastolic blood yjxwlyxf52 mm[Hg]Brunilda Deonholz BUSINESS INTEGRATION ANALYST Work Phone: [facility]ettQgksngtsrp63-21-1800 10:30-0500Heart rate74 /min Brunilda Deonholz BUSINESS INTEGRATION ANALYST Work Phone: [facility]ettPedomabxkc00-86-5234 10:30-0500Respiratory rate22 /minLisa Deonholz BUSINESS INTEGRATION ANALYST Work Phone: [facility]ettGxyrkzyryo70-40-3296 10:30-4452GeX7% (BldA) [Mass fraction]95 %Brunilda Deonholz BUSINESS INTEGRATION ANALYST Work Phone: [facility]ettEgxjeliovz72-04-9708 10:30-0500Systolic blood nfehmsrf452 mm[Hg]Brunilda Deonholz BUSINESS INTEGRATION ANALYST Work Phone: [facility]ettJlydaifbnr23-87-5435 09:17-0400Body mass index (BMI) [Ratio]41.76 kg/m2Lianasa Deonholz BUSINESS INTEGRATION ANALYST Work Phone: [facility]ettRtgvjmwmtl04-17-0448 09:17-0400Body temperature 97.3 [degF]Brunilda Deonholz BUSINESS INTEGRATION ANALYST Work Phone: [facility]ettIkygtecati58-53-1097 09:17-0400Body nhakqy897.36 kgLianasa Deonholz BUSINESS INTEGRATION ANALYST Work Phone: [facility]ettZduptmjedy42-27-9854 09:17-0400Diastolic blood zbmosofc70 mm[Hg]Brunilda Deonholz BUSINESS INTEGRATION ANALYST Work Phone: [address] [phone] 09:17-0400Heart rate79 /min Brunilda Ramseyhholz BUSINESS INTEGRATION ANALYST Work Phone: [address] [address]Hnydmvbgnv91-59-6852 09:17-1520UxC1% (BldA) [Mass fraction]94 %Brunilda Ramseyhholz BUSINESS INTEGRATION ANALYST Work Phone: [address] [phone] 09:17-0400Systolic blood nohaacag203 mm[Hg]Brunilda Milton BUSINESS INTEGRATION ANALYST Work Phone: NONE Healthcare Encounters Encounter DateEncounter TypeCare ProviderFacilityStart: 07-16-2025 End: 24-33-2012ftszwuszlvGixj J Aichholz BUSINESS INTEGRATION ANALYST-C Work Phone: [facility] Work Phone: Start: 07-16-2025 End: 16-19-5316Uevwehg encounter procedureBrunilda Rose BUSINESS INTEGRATION ANALYST-C-[facility] Work Phone: Start: 95-49-4542Oxzhvug encounter procedureBrunilda Rose BUSINESS INTEGRATION ANALYST-C Work Phone: [facility]tart: 01-23-2025 End: 52-01-7760Crmeiepsc Result EncounterGeneric External Data ProviderNOMS External Department UnsolicitedStart: 01-23-2025 End: 90-97-4855Mbmiogbjs Result EncounterGeneric External Data ProviderNOMS External Department UnsolicitedStart: 12-20-2024 End: 08-32-1562Wlwrye flowsMargot Rose BUSINESS INTEGRATION ANALYST Work Phone: noms CW FMStart: 12-20-2024 End: 25-39-3988Gizohz flowsMargot Rose BUSINESS INTEGRATION ANALYST Work Phone: [facility] FMStart: 12-20-2024 End: 44-15-6926Zcnnbgp encounter procedureLiana Milton BUSINESS INTEGRATION ANALYST Work Phone: [facility] FMComment on above:Encounter for subsequent [...] Cigarette nicotine dependence without complicationStart: 12-20-2024 End: 83-80-0876yormspvpimGWGE KINZAot AvailableStart: 10-16-2024 End: 51-36-1860Egrbroabk Result EncounterGeneric External Data ProviderNOMS External Department UnsolicitedStart: 10-16-2024 End: 66-45-4785Rppeliqwq Result EncounterGeneric External Data ProviderNOMS External Department UnsolicitedStart: 06-22-2024 End: 25-39-9768Dbukldird Result EncounterLisa Chavarriating BUSINESS INTEGRATION ANALYST Work Phone: noms External Department UnsolicitedStart: 06-22-2024 End: 05-26-0196Lsaefbqow Result EncounterLisa Chavarriafrankiez BUSINESS INTEGRATION ANALYST Work Phone: noms External Department UnsolicitedStart: 06-12-2024 End: 53-64-4668Kpxcwr flowsheetBrunilda Chavarriaholz BUSINESS INTEGRATION ANALYST Work Phone: noms CWM FMStart: 06-12-2024 End: 82-54-5077Cqnmbt flowsheetBrunilda Chavarriaholz BUSINESS INTEGRATION ANALYST Work Phone: noms CW FMStart: 06-12-2024 End: 86-13-2229Cqtvau outpatient visit 25 minutesLisa Chavarriaholz BUSINESS INTEGRATION ANALYST Work Phone: noms CWM FMComment on above:Primary hypertension (CMS/HCC) (Primary Dx); Morbid (severe) obesity due to excess calories (CMS/HCC); Body mass index (BMI) 40.0-44.9, adult (CMS/HCC); Malignant neoplasm of vagina (CMS/HCC); Gastroesophageal reflux disease without esophagitis; Lower extremity edema; Hypothyroidism, unspecified type (CMS/HCC); Tobacco user; Hyperglycemia; Polyneuropathy; Rheumatoid arthritis with positive rheumatoid factor, involving unspecified site ([facility]); Other fatigueStart: 06-12-2024 End: 60-49-6751qpzfomrqjoSAOC JUAREZZNot AvailableStart: 11-37-6185Zpnibcr encounter procedureLisa Rose BUSINESS INTEGRATION ANALYST Work Phone: [facility] HealthcareStart: 79-19-1720Aptfoahmk encounter Zohra Levi Rust - Medical OncologyStart: 01-12-2023 End: 05-20-6451soltfdilinSWS BRUNILDA AICHHOLZFacility:Q1Dtvli: 10-13-2022 End: 59-01-4428dyvmupmzzdDOL BRUNILDA RAMSEYHHOLZFacility:L4Lnzbg: 07-21-2022 End: 52-69-3903fcynypwfvqSMZ BRUNILDA AICHHOLZFacility:D8Bjjat: 04-21-2022 End: 10-64-7518tsebjnrwhfHK DOCTOR MISCFacility:N0Omqkp: 01-19-2022 End: 90-83-6060vdxcfeksdiLTA BRUNLIDA AICHHOLZFacility:U2Qjwrn: 10-21-2018 End: 82-13-6427Xtdxxnr encounter procedureHAIDER [facility] Start: 04-15-2018 End: 35-46-8761Mpjrbwk encounter procedureHAIUniversity Hospitals [facility] Procedures DateProcedureProcedure DetailPerforming ClinicianStart: 23-44-8465XGY CBC WITH AUTO DIFFGeneric External Data ProviderStart: 59-04-9670GguwpgotzauTqns Aichholz BUSINESS INTEGRATION ANALYST Work Phone: Start: 05-08-0381CDW CBC WITH AUTO DIFFGeneric External Data ProviderStart: 17-43-1433BEY HEMOGLOBIN R1PDvvz Milton BUSINESS INTEGRATION ANALYST Work Phone: Start: 61-55-7755DweqbgpfjcaQwwu Aichholz BUSINESS INTEGRATION ANALYST Work Phone: Plan of Treatment DateCare ActivityDetailAuthorStart: 03-05-2026Medicare Annual Wellness (AWV) Medicare Annual Wellness (AWV)[facility] HealthcareStart: 69-20-5483Roqvxupjm for malignant neoplasm of breastMammogramNOMS HealthcareStart: 15-94-2710Xeafk screening for proteinDiabetes: Urine Protein ScreeningNOMS HealthcareComment on above:Postponed from 1969 (Other Medical Reasons)Start: 06-25-2025 End: 78-90-1121Nmqgiro encounter pglgpiadt18/08/2025 9:20 AM EDT Office Visit [facility] [address] [place] [address] Brunilda Rose NP [address] [place] [address] [facility] FMStart: 32-19-4565Bcehvibrt vaccinationInfluenza Vaccine (Season Ended)[facility] HealthcareStart: 01-08-0298Ysogerhkp vaccination Influenza Vaccine (#1)[facility] HealthcareComment on above:Postponed from 06/18/2024 (Patient Refused)Start: 12-20-2024 End: 86-46-1979Wxqtiog encounter wrvjzihot31/05/2025 10:30 AM EST Office Visit [facility] [address] [place] [address] Brunilda Rose, RHEA [address] [place] [address] Polyneuropathy (Primary Dx); Morbid (severe) obesity due [...] edema; Age-related osteoporosis without current pathological fracture ([facility]/HCC); Hypothyroidism, unspecified type ([facility]/HCC); Encounter for subsequent annual wellness visit (AWV) in Medicare patient; Chronic gout without tophus, unspecified cause, unspecified site; Hyperglycemia; Cigarette nicotine dependence without complicationStart: 02-26-2025Medicare Annual Wellness (AWV)Medicare Annual Wellness (AWV)[facility] HealthcareStart: 49-26-8992Xzedhdobb for malignant neoplasm of colonColorectal Cancer Screening N[facility] HealthcareComment on above:Postponed from 1950 (Patient Refused) Start: 12-12-2024 End: 89-46-6611Gfgpwos encounter ebzznykbx32/25/2025 10:00 AM EST Office Visit [facility] [address] [place] [address] Brunilda Rose NP [address] [place] [address] [facility] FMStart: 46-72-2095Snqzvqnj screeningDiabetes: Retinopathy ScreeningNOMS HealthcareComment on above:Postponed from 1960 (Other Medical Reasons)Start: 08-72-4949Etazz screening for proteinDiabetes: Urine Protein ScreeningNOMS HealthcareComment on above:Postponed from 1969 (Other Patient Reasons)Start: 62-75-1373Aszvcljui vaccinationInfluenza Vaccine (#1)[facility] HealthcareStart: 37-53-8386Pnwhzgrud for malignant neoplasm of breast MammogramNOMS HealthcareStart: 06-12-2024 End: 69-70-0352Exzqzap encounter pddxxustd52/26/2024 9:20 AM EDT Office Visit [facility] [address] [place] [address] Brunilda Rose NP [address] [place] [address] Morbid (severe) obesity due to excess calories (CMS/HCC); Body mass index (BMI) 40.0-44.9, adult (CMS/HCC); Malignant neoplasm of vagina (CMS/HCC)[facility] C[facility] FMComment on above:Morbid (severe) obesity due to excess calories (CMS/HCC); Body mass index (BMI) 40.0-44.9, adult (CMS/HCC); Malignant neoplasm of vagina (CMS/HCC)Start: 62-40-5624Tsxjn BMI ScreeningAdult BMI ScreeningProNationwide Children's Hospitaltart: 34-55-6192MMSGR-19 Vaccine ( season)COVID-19 Vaccine ( season)[facility]aintart: 54-94-2846Lpaulixqi vaccinationInfluenza VaccineRegency Hospital Company SystemStart: 40-87-1032Mphf Risk ScreeningFall Risk ScreeningAtrium Health Kings Mountaintart: 75-82-8707Kdneqyqjhjxowi of varicella zoster vaccineZoster (Shingles) Vaccine (1 of 2)[facility]art: 66-18-4036YUfZ,Tdap and Td Vaccines (1 - Tdap)DTaP,Tdap and Td Vaccines (1 - Tdap)[facility] SystemStart: 52-30-5465Fvvte screening for proteinDiabetes: Urine Protein ScreeningJORDAN [facility] HealthcareStart: 34-74-5944Iuasd BMI Follow Up PlanAdult BMI Follow Up Plan [facility]aintart: 06-08-8120Ghpfsgixsh ScreeningDepression Screening [facility]aintart: 58-02-9717Hyygaly ScreeningTobacco Screening [facility]aintart: 03-93-9565Ltpqklpj screeningDiabetes: Retinopathy ScreeningJORDAN [facility]LEY [facility] HealthcareStart: 91-04-0479Cmuhimmdge A1c measurementDiabetes: Hemoglobin N7PIBCACox MonettStart: 1950Medicare Annual Wellness Visit Medicare Annual Wellness VisitAtrium Health Kings Mountaintart: 01-66-3014Xtgagdbhx for malignant neoplasm of colonJORDAN VALLEY [facility] Healthcare Immunizations Immunization DateImmunizationNotesCare PzzmulpfKekzlevk25-38-9303Phmirfnbt, Seasonal, Quadrivalent, AdjuvantedLisa Aichholz BUSINESS INTEGRATION ANALYST Work Phone: [facility] MonettKtxaokoxxy59-60-2987ALFG-UHL-0 (COVID-19) vaccine, mRNA, spike protein, LNP, PF, india-sucrose, 30 mcg/0.3 mLLisa Aichholz BUSINESS INTEGRATION ANALYST Work Phone: [phone] [place], [place] [address]Dpyzzbnfxv15-07-8895ymvcmuqet virus vaccine, unspecified formulationLisa Aichholz BUSINESS INTEGRATION ANALYST Work Phone: [phone] [place], [place] [address]Xioentsqvf56-68-0025Hepnuqmja, Seasonal, Quadrivalent, AdjuvantedLisa Aichholz BUSINESS INTEGRATION ANALYST Work Phone: [phone] [place], [place] [address]Oulykylcli97-33-6830ETYV-ZAM-3 (COVID-19) vaccine, mRNA, spike protein, LNP, bivalent, preservative free, 30 mcg/0.3 mL dose, india-sucrose formulationLisa Aichholz BUSINESS INTEGRATION ANALYST Work Phone: [phone] [place], [place] [address]Shnjuidrzn87-81-9423srwcrjbxp virus vaccine, unspecified formulationPaula [facility]11-24-2021Pfizer Purple Cap SARS-CoV-2 VaccinationLisa Aichholz BUSINESS INTEGRATION ANALYST Work Phone: [phone] [place], [place] [address]Gbaywunjjf29-90-6751ngifvqfablws polysaccharide vaccine, 23 valentLisa Aichholz BUSINESS INTEGRATION ANALYST Work Phone: [phone] [place], [place] [address]Vcmhjtrtjr14-69-9494Mysaipism, Seasonal, Quadrivalent, AdjuvantedLisa Aichholz BUSINESS INTEGRATION ANALYST Work Phone: [phone] [place], [place] [address]Wlnsybgill93-72-7388Galdnl Purple Cap SARS-CoV-2 VaccinationLisa Aichholz BUSINESS INTEGRATION ANALYST Work Phone: [phone])[facility] [place], [place] [id number] Purple Cap SARS-CoV-2 VaccinationLisa Aichholz BUSINESS INTEGRATION ANALYST Work Phone: noBates County Memorial HospitalVbdekitgox53-86-0870Jdhufregm, Seasonal, Quadrivalent, AdjuvantedLisa Deonholz BUSINESS INTEGRATION ANALYST Work Phone: noBates County Memorial HospitalAngfqqseio53-10-7347secsozwgkivj conjugate vaccine, 13 valentLisa Deonholz BUSINESS INTEGRATION ANALYST Work Phone: [facility] Healthcare Payers DatePayer CategoryPayerPolicy [id number] Health InsuranceMEDICAL MUTUAL Member Subscriber Plan / Payer (Effective 2021-Present) Name: Eunice Castillo Rick Relation to Subscriber: Self Name: Eunice Castillo Rick ID: Not on file Type: Not on file Address: [place] [id number] 2015Medicare [id number] [id number] [id number] 1960 [id number] [id number] [id number] 2.16.840.1.645994.3.57[id number] 2.16.840.1.674326.3.57[id number] 2.0.1.100865.3.57[id number] 2.16.840.1.867194.3.57[id number] 2..840.1.387599.3.57[id number] 2..840.1.843775.3.57[id number] 2.0.1.557401.3.57[id number] 2..840.1.344505.3.579.2.1259Private Health InsuranceCommunity Medical Center-[id number] Social History DateTypeDetailFacilityStart: 10-31-2019 End: 05-11-7748Vlaekby smoking status NHISSmokes tobacco dailyLakeHealth Beachwood Medical CenterHistory of tobacco useCigarette SmokerRegency Hospital Company SystemStart: 10-31-2019 End: 19-99-2599Gcyvxxdyie smoked current (pack per day) - Mlkehict8RPKM HealthcareStart: 36-04-6653Shfcirm use and exposureSmokeless tobacco non-user [facility] CrowdSt[employer] SystemStart: 11-13-2020 End: 06-50-3122Bvvcarg intakeLifetime non-drinker (finding)[facility] SystemStart: 08-16-2019 End: 67-72-5225Mtooktc Use Disorder Identification Test - Consumption [AUDIT-C] [facility] HealthcareFrequency of Alcohol ConsumptionNeMercy Health Allen Hospital System Start: 51-89-5183Ifb Assigned At BirthNot on fileLakeHealth Beachwood Medical CenterWithin the last year, have you been afraid of your partner or ex-partner?NoNOMS HealthcareDo you belong to any clubs or organizations such as amish groups, unions, fraternal or athletic groups, or [...] got money to buy more.Never trueNOMS HealthcareStart: 43-31-7709Hceqirn Commentcaffine: 4 cups dailyNOMS HealthcareSexFemale (finding) [facility] Trumbulltart: 25-33-8076Czw Assigned [facility] History of Present illness Narrative 12-20-2024 Note Date & FisiDxpqMrtqjejm17-43-0512 History of Present illness Narrative* IBIS RAYA [...] Any Hospitalizations in the last year:none Specialist:Rheumatology, COMPUTER PROGRAMMER ANALYST HCPOA/Living Will:yes Concerns: Thyroid Problem Presents for [...] compliance problems. There is no history of CAD/MD, heart failure or PVD. Identifiable causesof hypertension [...] 12/13/2023 Heel spur, left 12/13/2023 HTN (hypertension) ([facility]) 12/13/2023 Hyperglycemia 12/13/2023 Hypothyroid ([facility]) 12/13/2023 Lower extremity edema 12/13/2023 Morbid obesity with body mass index (BMI) of 40.0 to 49.9 ([facility]) 12/13/2023 Non-compliant patient 12/13/2023 Osteoarthritis 12/13/2023 Osteoporosis ([facility]) 12/13/2023 Polyneuropathy 12/13/2023 RA (rheumatoid arthritis) ([facility]) 12/13/2023 Tobacco user 12/13/2023 Vaginal cancer ([facility]) 12/13/2023 Vitamin B12 deficiency 12/13/2023 Past [...] Visit Body mass index (BMI) 40.0-44.9, adult ([facility]) Chronic idiopathic gout of multiple sites Takes [...] gabapentin (Neurontin) 300 MG capsule HTN (hypertension) ([facility]) Please check blood pressure daily and record DASH diet Limit caffeine Take medication as directed Contact office if chest pain, pressure, dizziness, shortness of breath, swelling legs Recommend slow position changes Current meds: lisinopril, and lasix Relevant Medications lisinopril 10 MG tablet Malignant neoplasm of vagina ([facility]) Osteoporosis ([facility]) DEXA was 05/10, -3.0, Current med fosamax Lower extremity edema Lasix Limit sodium, elevate feet as much as possible Check labs yearly and prn Relevant Medications furosemide (Lasix) 40 MG tablet potassium chloride CR (Klor-Con) 10 MEQ ER tablet Morbid (severe) obesity due to excess calories ([facility]) Discussed with patient their BMI (actual, verses recommended). We have also discussed lifestyle modifications: attempts to perform physical activity as chronic conditions allow, also to monitor dietary intake: increasing protein/fruits/veggies and lowering carb intake (unless contraindicated). Limit sodas, juices, and sugary drinks. Hypothyroid ([facility]) Current med on levothyroxine Check labs yearly, prn dose changes, changes in symptoms Relevant Medications levothyroxine (Synthroid, Levoxyl) 150 MCG tablet Rheumatoid arthritis with rheumatoid factor, unspecified ([facility]) Continue with dr cardenas Current meds: humira, [...] of the risks of continued smoking: stroke, MD, all forms of cancer, lung disease, and [...] of the risks of continued smoking: stroke, MD, all forms of cancer, lung disease, and [...] Problem(s): Rheumatoid arthritis with rheumatoid factor, unspecified ([facility]) Continue with dr cardenas Current meds: humira, [...] intraepithelial neoplasia III) 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 w COMPUTER PROGRAMMER ANALYST/onc * Brunilda Rose NP - 12/20/2024 6:45 [...] as well OARRS reviewed documented in this encounterNONE Healthcare History of Present illness Narrative 06-12-2024 Note Date & RxsmLktcPekmflht80-32-1063 History of Present illness Narrative* Brunilda Rose [...] test and go from there * Brunilda Roes NP - 06/12/2024 11:23 AM EDTAssociated Problem(s): Hypothyroid (CMS/HCC) Fatigue, takes thyroid meds daily as directed * Brunilda Rose NP - 06/12/2024 11:21 AM EDTAssociated Problem(s): HTN (hypertension) ([facility]) Stable at this time No med dose [...] 12/13/2023 Heel spur, left 12/13/2023 HTN (hypertension) ([facility] 12/13/2023 Hyperglycemia 12/13/2023 Hypothyroid ([facility]) 12/13/2023 Lower extremity edema 12/13/2023 Morbid obesity with body mass index (BMI) of 40.0 to 49.9 ([facility]) 12/13/2023 Non-compliant patient 12/13/2023 Osteoarthritis 12/13/2023 Osteoporosis ([facility]) 12/13/2023 Polyneuropathy 12/13/2023 RA (rheumatoid arthritis) ([facility]) 12/13/2023 Tobacco user 12/13/2023 Vaginal cancer ([facility]) 12/13/2023 Vitamin B12 deficiency 12/13/2023 Past Surgical [...] Visit Body mass index (BMI) 40.0-44.9, adult ([facility]) Gastroesophageal reflux disease without esophagitis Polyneuropathy Would like to increase gabapentin to 300mg BID Relevant Medications gabapentin (Neurontin) 300 MG capsule HTN (hypertension) ([facility]/HCC) - Primary Stable at this time No med dose change Relevant Medications lisinopril 10 MG tablet Malignant neoplasm of vagina (CMS/HCC) Continue with Sap Developer/Onc Lower extremity edema Relevant Medications potassium chloride CR (Klor-Con) 10 MEQ ER tablet furosemide (Lasix) 40 MG tablet Morbid (severe) obesity due to excess calories (CMS/HCC) Hypothyroid (CMS/HCC) Fatigue, takes thyroid meds daily as directed Relevant Medications levothyroxine (Synthroid, Levoxyl) 150 MCG tablet Tobacco user RA (rheumatoid arthritis) ([facility]/HCC) Relevant Medications folic acid (Folvite) 1 [...] A1c test and go from there * Brunlida Rose NP - 06/12/2024 6:52 AM EDTAssociated Problem(s): Malignant neoplasm of vagina (CMS/HCC) Continue with Sap Developer/Onc documented in this encounterJ[facility] Healthcare Note 10-13-2023 Note Date & JpppHiouAvrtfeqv77-11-4656 Miscellaneous Notes* Telephone Encounter - Zohra Oates - 10/13/2023 2:33 PM EST CALLED TO CANCEL FOLLOW UP WITH ANTONIETTA SHE DOES NOT WANT TO RESCHEDULE AT THIS TIME documented in this encounterRegency Hospital Company System Telephone encounter Note 10-13-2023 Note Date & PittKgorOcbgippw42-47-4735 Telephone encounter Note* Telephone Encounter - Zohra Oates - 10/13/2023 2:33 PM EST CALLED TO CANCEL FOLLOW UP WITH ANTONIETTA SHE DOES NOT WANT TO RESCHEDULE AT THIS TIME [facility] Evaluation note Note Date & TypeNoteFacilityEvaluation [...] (CMS/HCC) Other fatigue documented in this encounter [facility] Healthcare Evaluation note Note Date & TypeNoteFacilityEvaluation [...] with positive rheumatoid factor, involving unspecified site ([facility]) Allergic rhinitis, unspecified seasonality, unspecified trigger Gastroesophageal reflux disease without esophagitis Esophageal reflux Primary hypertension ([facility])- Primary Unspecified essential hypertension Morbid (severe) obesity due to excess calories ([facility]) Body mass index (BMI) 40.0-44.9, adult ([facility]) Malignant neoplasm of vagina ([facility]/HCC) Malignant neoplasm of vagina Gastroesophageal reflux disease without esophagitis Esophageal reflux Lower extremity edema Edema Hypothyroidism, unspecified type ([facility]) Tobacco user Tobacco use disorder Hyperglycemia Other abnormal glucose Polyneuropathy Unspecified hereditary and idiopathic peripheral neuropathy Rheumatoid arthritis with positive rheumatoid factor, involving unspecified site ([facility]) Other fatigue Encounter for subsequent annual wellness visit (AWV) in Medicare patient- Primary Morbid (severe) obesity due to excess calories ([facility]) Body mass index (BMI) 40.0-44.9, adult ([facility]) Rheumatoid arthritis with rheumatoid factor, unspecified ([facility]) Malignant neoplasm of vagina ([facility]) Malignant neoplasm of vagina Polyneuropathy Unspecified hereditary and idiopathic peripheral neuropathy Primary hypertension ([facility]) Unspecified essential hypertension Gastroesophageal reflux disease without esophagitis Esophageal reflux Idiopathic chronic gout of multiple sites without tophus Lower extremity edema Edema Age-related osteoporosis without current pathological fracture ([facility]) Hypothyroidism, unspecified type ([facility]) Chronic gout without tophus, unspecified cause, unspecified [...] arthritis with rheumatoid factor, unspecifiedacuteSeptember 2024 10:25am [facility] Work Phone: Instructions Note Date & TypeNoteFacilityInstructionsNot on filedocumented in this encounter [facility] Reason for referral (narrative) Note Date & TypeNoteFacilityReason for referral (narrative)No reason for referral information availableCincinnati Shriners Hospital Work Phone: Summary Purpose Family History [...] section and content) DATE CREATED AUTHOR 10/27/2018 [facility] DATE CREATED AUTHOR AUTHOR'S ORGANIZ ATION 01/15/2023 [facility] DATE CREATED AUTHOR AUTHOR'S ORGANIZ ATION 12/22/2024 [facility] EPIC Care Teams (unrecognized sec tion and content) Team MemberRelationshipSpecialtyStart DateEnd Date Brunilda Rose, NURSING INSTRUCTOR-LEADED GLASS INSTALLER [address] [place] [address] PCP - GeneralNurse Mzbjatodhzwh88/30/19Team MemberRelationshipSpecialtyStart DateEnd Date Jerry Shah MD [address] [place] [address] PCP - GeneralFamily Medicine12/06/23 Brunilda Rose NP [address] [place] [address] Nurse PractitionerP[facility]10/18/22Team MemberRelationshipSpecialtyStart DateEnd Date Jerry Shah MD [address] [place] [address] PCP - [facility]12/06/23 Brunilda Rose NP [address] [place] [address] Nurse [facility]10/18/22Te MemberRelationshipSpecialtyStart DateEnd Date Jerry Shah MD [address] [place] [address] PCP - [facility]12/06/23 Brunilda Rose NP [address] [place] [address] Nurse [facility]10/18/22Te MemberRelationshipSpecialtyStart DateEnd Date Jerry Shah MD [address] [place] [address] PCP - [facility]12/06/23 Brunilda Rose NP [address] [place] [address] Nurse [facility]10/18/22Team MemberRelationshipSpecialtyStart DateEnd Date Jerry Shah MD [address] [place] [address] PCP - [facility]12/06/23 Brunilda Rose NP [address] [place] [address] Nurse PractitionerP[facility]10/18/22Team MemberRelationshipSpecialtyStart DateEnd Date Jerry Shah MD [address] [place] [address] PCP - [facility]12/06/23 Brunilda Rose NP [address] [place] [address] Nurse PractitionerP[facility]10/18/22 Team Status: Active Member Role Status [...] BE BASED ON THE PRIMARY CLINICAL RECORDS. [employer] [facility]. provides no warranty or guarantee of the accuracy or completeness of information in this document.
--- OUTSIDE RECORDS SUMMARY | 2025-08-13 01:35 | XMS_ITS | Clinical Summary ---
Author Organization [employer] Address [id number] [place] [address] Care Team Providers Care Power Station Operator Name Role Phone RamseyBrunilda barone Altagracia CTRS-BREAST PULLER Primary Care Provider Allergies Active AllergyReactionsCriticalityNoted DateCommentsPiroxicamSwellingMedium 08/16/20197325VtcljrhaxczHnafCnu33/02/2016 Medications MedicationSigDispense QuantityRefillsLast FilledStart DateEnd DateStatus acetaminophen [...] Social History Tobacco UseTypesPacks/DayYears UsedDateSmoking Tobacco: Every JofTuoljmdgja882 Smokeless Tobacco: NeverAlcohol UseStandard Drinks/WeekCommentsNever0 (1 standard drink = 0.6 oz pure alcohol)AUDIT-CAnswerDate RecordedFrequency of Alcohol MukiwwppyjgSbvzd83/30/2019Average Number of DrinksNot on file08/16/2019 Frequency of Binge DrinkingNot on file08/16/2019ChildcareAnswerDate Recorded EwzhivhkwFytwesn38/12/2019EmploymentAnswerDate RecordedEmploymentUnknown 03/29/2019Purpose - LifeAnswerDate RecordedPurpose and direction in lifeUnknown 1CommentsNoSex and Gender InformationValueDate RecordedSex Assigned at BirthNot on fileLegal KaqAdiwyy95/06/2015 11:35 AM EDTGender IdentityNot on fileSexual OrientationNot on file Last Filed Vital Signs Vital SignReadingTime TakenCommentsBlood Zmddbpfp032/85010/21/2022 10:02 AM EST Jvngi076810/21/2022 10:02 AM YFXIpkehwkxcld75.6 ??C (97.9 ??F)10/21/2022 10:02 AM ESTRespiratory Mxbd114210/21/2022 10:02 AM ESTOxygen Iplipapoci55%10/21/2022 10:02 AM ESTInhaled Oxygen Concentration--Pcydfw983.9 kg (251 lb)10/21/2022 10:02 AM PZCMfvhgo459.6 cm (5' 4 )10/21/2022 10:02 AM ESTBody Mass Index43.0810/21/2022 10:02 AM EST Plan of Treatment Health MaintenanceDue DateLast DoneCommentsDepression Gppmaycqs55/09/1962Tobacco Grwclqesd15/09/1962DTaP,Tdap and Td Vaccines (1 - Tdap)1969Zoster (Shingles) Vaccine (1 of 2)2000Fall Risk Zigebokfq93/09/2015dult BMI Wvqkdueqi69OVID-19 Vaccine (2024- season)2025 08/11/2022, 09/10/2021, 01/07/2021, Additional history existsInfluenza Vaccine , 08/26/2021, 08/27/2020 [employer] Devices Not on file Insurance Care Teams Team MemberRelationshipSpecialtyStart DateEnd Date Brunilda Rose, CTRS-BREAST PULLER PCP - GeneralNurse Kpvuzdyjnjku41/30/19
--- OUTSIDE RECORDS SUMMARY | 2025-08-13 01:36 | XMS_ITS | Clinical Summary ---
Author Organization [facility] Address [address] [place], [place] [address] Care Team Providers Care Horizontal Boring Mill Operator Name Role Phone Katherine Slater MD, Armani Hamilton Unavailable [phone] Brunilda Rose CNP Primary Care Provider [phone] Allergies Active AllergyReactionsCriticalityNoted VuosJsfexkucSscomsjjtnbMtai34/02/2016 Medications MedicationSigDispense QuantityRefillsLast FilledStart DateEnd DateStatus methotrexate 2.5 mg tablet Take 2.5 mg by mouth every Wednesday. 10 tabs every wed which equals a total of 25 mgActive allopurinol (ZYLOPRIM) 300 mg tablet Take 300 mg by mouth once daily.Active loratadine (CLARITIN) 10 mg tablet Take 10 mg by mouth once daily.Active predniSONE (DELTASONE) 5 mg tablet Take 5 mg by mouth once daily. 1 1/2 tabs daily equals 7.5 mg a dayActive folic acid 1 mg tablet Take 1 mg by mouth once daily.Active adalimumab (HUMIRA) 40 mg/0.8 mL injection Inject 40 mg subcutaneously every 2 weeks. Active omeprazole (PRILOSEC) 20 mg capsule Take 20 mg by mouth once daily.Active calcium polycarbophil (FIBERCON) 625 mg tablet Take 625 mg by mouth once daily. 2 tabs every dayActive cyanocobalamin (VITAMIN B-12) 1,000 mcg/mL soln Inject 1,000 mcg intramuscularly once every month.Active gabapentin (NEURONTIN) 100 mg capsule Take 100 mg by mouth once daily.Active lisinopril (ZESTRIL, PRINIVIL) 10 mg tablet Take 10 mg by mouth once daily.Active multivitamin tablet Take 1 tablet by mouth once daily.Active CALCIUM CARBONATE/VITAMIN D3 (CALTRATE 600 + D ORAL) Take by mouth. 2 tabs dailyActive levothyroxine (SYNTHROID) 200 mcg tablet Take 175 mcg by mouth once daily. 06/08/2016Active furosemide (LASIX) 40 mg tablet Take 40 mg by mouth once daily.06/13/2016Active gabapentin (NEURONTIN) 300 mg capsule Take 300 mg by mouth daily at bedtime.06/08/2016Active nicotine (NICODERM CQ) 21 mg/24 hr Apply 1 Patch as directed every 24 hours.Active acetaminophen (TYLENOL) 325 mg tablet Take 2 tablets by mouth every 6 hours as needed for Pain. 60 tablet Active docusate sodium (COLACE) 100 mg capsule Take 1 capsule by mouth twice daily as needed for Constipation. 60 capsule Active magnesium hydroxide (MOM) 400 mg/5 mL suspension Take 15 mL by mouth once daily as needed for Constipation. 300 mL 10/30/2016Active potassium chloride ER (K-DUR, KLOR-CON) 10 mEq tablet Take 10 mEq by mouth once daily.03/30/2017Active COLCRYS 0.6 mg tablet Take 0.6 mg by mouth once daily.03/30/2017Active Active Problems ProblemNoted DateDiagnosed DateMorbid gwqwvyd2610/06/2016Other specified rheumatoid arthritis, multiple sites10/06/2016Chronic idiopathic gout of multiple sites10/06/2016Gastroesophageal reflux disease without esophagitis 10/06/20161183Sromir80/20/2016 Overview (10/06/2016): 45+ pack years Family History RelationStatusCommentsFatherDeceasedMotherDeceased Social History Tobacco UseTypesPacks/DayYears UsedDateSmoking Tobacco: Every NodGppdncqqkb969 Smokeless Tobacco: Never Tobacco Cessation:Ready to Q uit: No; Counseling Given: Yes Alcohol UseStandard Drinks/WeekCommentsNo0 (1 standard drink = 0.6 oz pure alcohol)Area Deprivation IndexAnswerDate RecordedNational Score (1-100), lower number is lower riskNot on file2020State Score (1-10), lower number is lower riskNot on file2020Data from: https://www.neighborhoodatlas.medicine.[facility].edu/. Last address used for calculationNot on file2020CommentsNoSex and Gender Information ValueDate RecordedSex Assigned at BirthNot on fileLegal HpjDtezlg26/01/2016 4:57 PM ESTGender IdentityNot on fileSexual OrientationNot on file Last Filed Vital Signs Vital SignReadingTime TakenCommentsBlood Wgoezhtr120/8210/21/2018 10:45 AM EST Mxgqh701310/21/2018 10:45 AM EMBHznplffllgl32.7 ??C (98 ??F)10/21/2018 10:45 AM ESTRespiratory Movs918010/21/2018 10:45 AM ESTOxygen Wgmhhaggao04%10/21/2018 10:45 AM ESTInhaled Oxygen Concentration--Pliggp360.9 kg (268 lb 12.8 oz)10/21/2018 10:45 AM MEPVdyyvw752.1 cm (5' 5 )10/21/2018 10:45 AM ESTBody Mass Index44.73 10/21/2018 10:45 AM EST Plan of Treatment Health MaintenanceDue DateLast DoneCommentsAnxiety Jdkrpyhdn39/09/1968Depression Vrturhdiy39/09/1968Hepatitis C Rlyxfqrrm75/09/1968DTaP,Tdap,Td Vaccine (1 - Tdap)1969Mammogram Qnxblqvao93/09/1990CT Wasrjbmlrvgu19/09/1995Cologuard (FIT-DNA)09/25/19956200Jgsseouxdcb43/09/1995Colorectal Cancer Sakdeobha42/09/1995 Fecal Occult Blood1995Lipid Prahmlulq96/09/7755Hkknfobrwkhzf63/09/1995 Pneumococcal Vaccine: 50+ (1 of 1 - PCV)2000Shingrix Vaccine (1 of 2) 2000Bone Density Xuoymmvev04/09/2015Diabetes Dkkdmpmhi09 Advance Directive Jszpmadksl30/01/2025ovid-19 Vaccine (1 - 2024- season) 2025Influenza Vaccine (#1)2025RSV Vaccine (1 - 1-dose 75+ series) 2025 Procedures Procedure NamePriorityDate/TimeAssociated DiagnosisCommentsBASIC METABOLIC PANEL (EU,FV,HL,BRIA,MM,SP)ASAP10/30/2016 7:24 AM EST from Last 3 Months or Most Recently Relevant to Health Maintenance Results * (ABNORMAL) BASIC METABOLIC PANEL (AV,EU,FV,HL,BRIA,MM,SP) (10/30/2016 7:24 AM EST)ComponentValueRef RangeTest MethodAnalysis TimePerformed AtPathologist NzkcrxeybTlasqvl525(H)65 - 100 mg/dL10/30/2016 8:58 AM [facility]FA[facility] BUN98 - 25 mg/dL10/30/2016 8:58 AM ESTFAIRVIEW LABORATORYCreatinine0.63(L)0.70 - 1.40 mg/dL10/30/2016 8:58 AM [facility]FA[facility] NJRHOGBFAPGgjxso519852 - 148 mmol/L 10/30/2016 8:58 AM ESTFAIRVIEW LABORATORYPotassium3.83.5 - 5.0 mmol/L 10/30/2016 8:58 AM ESTFA[facility] LEZRLSOLVMTwgvtupy2717 - 110 mmol/L10/30/2016 8:58 AM ESTFA[facility] UQUINDRRDSQA76096 - 32 mmol/L10/30/2016 8:58 AM EST [facility] LABORATORYAnion Uxc282 - 18 mmol/L10/30/2016 8:58 AM ESTFAIRVIEW LABORATORYCalcium8.58.5 - 10.5 mg/dL10/30/2016 8:58 AM ESTFAIRVIEW LAB[facility]ORY Glom Filtration Rate (AA)>60>60010/30/2016 8:58 AM ESTFAIRVIEW LABORATORYGlom Filtration Rate (SENAIT)>60>60 .10/30/2016 8:58 AM ESTFAIRVIEW LABORATORYSpecimen (Source)Anatomical Location / LateralityCollection Method / VolumeCollection TimeReceived TimeBlood specimen (specimen)BLOOD SPECIMEN / Ivbjufg2010/30/2016 7:24 AM EST10/30/2016 7:25 AM EST Narrative Authorizing ProviderResult TypeResult StatusLatonya Reyes MDLABORATORY REGIONALFinal ResultPerforming OrganizationAddressCity/State/ZIP CodePhone Number [facility] [address] [address] [place] [phone] from Last 3 Months or Most Recently Relevant to Health Maintenance Insurance Care Teams Team MemberRelationshipSpecialtyStart DateEnd Date Brunilda Rose CNP PCP - GeneralFamily Medicine04/15/18 Armani Murphy Jr., MD Ifyqhkgcbrpy66/20/16
--- OUTSIDE RECORDS SUMMARY | 2025-08-13 01:36 | XMS_ITS | Clinical Summary ---
Author Organization [facility] Address [address] [place] [address] Care Team Providers Care Maintenance Manager Name Role Phone Brunilda Rose NP Unavailable [phone] Jerry Shah MD Primary Care Provider [phone] Allergies Active AllergyReactionsCriticalityNoted ZedtFovkgkesWuqbastjeKhakviem29/19/2024 LphecnjdszbErizhib88/19/2024 Medications MedicationSigDispense QuantityRefillsLast FilledStart DateEnd DateStatus methotrexate [...] tablet Take 0.6 mg by mouth As dkjukpib53/08/2024ctive alendronate (Fosamax) 70 MG tablet Take 70 [...] Problems ProblemNoted DateDiagnosed DateCigarette nicotine dependence without fbfdavcnifmu75/05/2025 Assessment & Plan (12/20/2024 6:53 AM EST): The patient has been advised of the risks of continued smoking: stroke, DE, all forms of cancer, lung disease, and . Options for quitting smoking include: cold turkey, hypnosis, acupuncture, nicotine replacement meds(gum, lozenges, and patches), Buproprion, and Varenicline. At this time pt is encouraged to evaluate their goals for wanting to quit smoking, and reach out toprovider when ready to start this process Mghtyjdnkjsexy82/26/2024 Assessment & Plan (12/20/2024 11:39 AM EST): [...] script Fu in 6 months Abdominal pain, lnlikqorpzi25/26/2024HTN (hypertension)12/13/2023 Assessment & Plan (12/20/2024 6:44 AM [...] EST): Stable, no changes Malignant neoplasm of niaboj1412/13/2023 Assessment & Plan (06/12/2024 6:52 AM EDT): Continue with Stage Electrician Helper/Onc Avnuplbicifn86/26/2024 Overview (05/09/2024): DEXA: 05/08/24: lumbar -2.1 and right femur -3.0 osteoporosis Assessment & Plan (12/20/2024 6:54 AM EST): DEXA was 05/10, -3.0, Current med fosamax Nteadlumbmlnhk65/26/2024Lower extremity edema12/13/2023 Assessment & Plan (12/20/2024 6:46 AM EST): Lasix Limit sodium, elevate feet as much as possible Check labs yearly and prn Assessment & Plan (12/13/2023 11:59 AM EST): Stable, no acute swelling Heel spur, left12/13/2023Vitamin B12 edfhsuwrty03/26/2024Morbid (severe) obesity due to excess /26/2024 Assessment & Plan (12/20/2024 6:48 AM EST): Discussed with patient their BMI (actual, verses recommended). We have also discussed lifestyle modifications: attempts to perform physical activity as chronic conditions allow, also to monitor dietary intake: increasing protein/fruits/veggies and lowering carb intake (unless contraindicated). Limit sodas, juices, and sugary drinks. Ivcpxuqbtzd26/26/2024 Assessment & Plan (12/20/2024 6:48 AM EST): Current med on levothyroxine Check labs yearly, prn dose changes, changes in symptoms Assessment & Plan (06/12/2024 11:23 AM EDT): Fatigue, takes thyroid meds daily as directed Assessment & Plan (12/13/2023 11:59 AM EST): No changes to meds Rheumatoid arthritis with rheumatoid factor, fuxaayvaldg70/26/2024 Assessment & Plan (12/20/2024 6:52 AM EST): Continue with dr fernandez Current meds: humira, methotrexate, Assessment & Plan (12/13/2023 12:04 PM EST): Continue with dr fernandez Non-compliant ahohpyk7512/13/20235096Ckwikrvzesdas68/26/2024 Assessment & Plan (12/20/2024 11:38 AM EST): [...] see what glucose is H/O degenerative disc wdghwie9812/13/2023Gout12/13/2023 Assessment & Plan (12/20/2024 6:50 AM EST): Current meds allopurinol and colchicine Labs check w Rheumatology Onsgilr5512/13/2023 Assessment & Plan (06/12/2024 11:27 AM EDT): [...] A1c test and go from there Allergic arlevwpq47/26/2024cute pain of left swkzucmr99/26/2024 Assessment & Plan (12/13/2023 12:02 PM EST): [...] 6:45 AM EST): 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 w MEDICAL CODING MANAGER/onc Body mass index (BMI) 40.0-44.9, adult09/27/2019Chronic idiopathic gout of multiple sites10/06/2016 Assessment & Plan (12/20/2024 6:46 AM EST): Takes allopurinol Labs are follow with Rheumatology Gastroesophageal reflux disease without tzkfrxaultz19/20/2016 Assessment & Plan (12/20/2024 11:40 AM EST): [...] without complication, without long-term current use of /Morbid jkbbbwv61Other specified rheumatoid arthritis, multiple sitesSmoker112/07/2015 12/20/2024 Overview (12/13/2023): 45+ pack years Immunizations ImmunizationAdministration DatesNext DueInfluenza, Seasonal, Quadrivalent, Eiwvvjuycy75/13/2023,08/11/2022,08/26/2021,08/27/2020Pfizer Purple Cap SARS-CoV-2 Fluqrmcmkyo28/24/2021,01/07/2021,1Pneumococcal Conjugate PCV 13110/27/2019Pneumococcal Polysaccharide ONWB3822/11/3378HYSZ-UAG-5 (COVID-19) vaccine, mRNA, spike protein, LNP, PF, [place]-sucrose, 30 mcg/0.3 mL07/30/2023 SARS-COV-2 (COVID-19) vaccine, mRNA, spike protein, LNP, bivalent, preservative free, 30 mcg/0.3 mLdose, [place]-sucrose gholzopndzx16/25/2022 Social History Tobacco UseTypesPacks/DayYears UsedDateSmoking Tobacco: Every [...] relatives?Once a week12/13/2023How often do you attend tenriism or nondenominational services?Never12/13/2023o you belong to any clubs or organizations such as tenriism groups, unions, fraternal or athletic groups, or school groups?Yes12/13/2023How often do you attend meetings of the clubs or organizations you belong to?Never12/13/2023re you , , , , never , or living with a partner?Ezemfpb1412/13/2023UDIT-C AnswerDate RecordedQ1: How often do you have [...] hard at all12/13/2023 PHQ-2AnswerDate RecordedPatient Health Questionnaire-2 Gzujh833[facility] - Occupational Stress QuestionnaireAnswerDate RecordedDo you feel stress - tense, restless, nervous, or anxious, or unable to sleep at night because yourmind is troubled all the time - these days?Only a jvtetp6212/13/2023Exercise Vital SignAnswerDate RecordedOn average, how many days [...] steady place to sleep or slept in [facility] (including now)?No12/13/2023CommentsUnknownSex and Gender InformationValueDate RecordedSex Assigned at BirthNot on fileLegal SexFemale 06/16/2023 9:04 AM EDTGender IdentityNot on fileSexual OrientationNot on file Last Filed Vital Signs Vital SignReadingTime TakenCommentsBlood Bonkkqjv071/80012/20/2024 10:30 AM EST Rbtko501812/20/2024 10:30 AM HMKKwcsrdlajvl03.8 ??C (98.3 ??F)12/20/2024 10:30 AM ESTRespiratory Bwqb124912/20/2024 10:30 AM ESTOxygen Vnrsqhkmps02%12/20/2024 10:30 AM ESTInhaled Oxygen Concentration--Oivlej585 kg (244 lb 6.4 oz)12/20/2024 10:30 AM SPDEzvvfy377.6 cm (5' 4 )12/20/2024 10:30 AM ESTBody Mass Index41.95 12/20/2024 10:30 AM EST Plan of Treatment Not on file Insurance Care Teams Team MemberRelationshipSpecialtyStart DateEnd Date Jerry Shah MD PCP - GeneralFamily Medicine12/06/23 Brunilda Rose NP Nurse PractitionerFamily Medicine10/18/22
--- NOTE | 2025-08-13 01:53 | ED.BACK1 ---
HPI HPI - Back Pain/Injury General Chief Complaint: Back Pain/Injury Stated Complaint: BACK PAIN Time Seen by Provider: 08/13/25 01:39 Source: patient Mode of arrival: ambulance History of Present Illness HPI Narrative: history of COPD. seen here 4 days ago for back pain and found to have compression fracture. Prescribed pain medication and was tolerating the pain. Went to bed last PM without taking any pain medication. Woke up later to go to the bathroom and not able to get up because of the pain. Did not take her pain medication but called [facility] to bring her to the ER. Describes pain radiating from her back into her buttocks. No pain or weakness of her ower extremities. No fever or loss of control of bowel or bladder. also describes spasm of her back when she is trying to change position Related Data Home Medications ?Medication ?Instructions ?Recorded ?Confirmed alendronate 70 mg tablet 70 mg PO QWEEK 08/10/25 08/13/25 allopurinol 300 mg tablet 300 mg PO DAILY 08/10/25 08/13/25 colchicine 0.6 mg tablet 0.6 mg PO DAILY 08/10/25 08/13/25 folic acid 1 mg tablet 1 mg PO DAILY 08/10/25 08/13/25 furosemide 40 mg tablet 40 mg PO DAILY 08/10/25 08/13/25 gabapentin 300 mg capsule 600 mg PO BID 08/10/25 08/13/25 levothyroxine 150 mcg tablet 150 mcg PO DAILY 08/10/25 08/13/25 lisinopril 10 mg tablet 10 mg PO DAILY 08/10/25 08/13/25 methotrexate sodium 2.5 mg tablet 25 mg PO QWEEK 08/10/25 08/13/25 omeprazole 20 mg capsule,delayed 20 mg PO DAILY 08/10/25 08/13/25 release potassium chloride 10 mEq 20 meq PO BID 08/10/25 08/13/25 tablet,extended release prednisone 5 mg tablet 5 mg PO DAILY 08/10/25 08/13/25 ibuprofen 600 mg tablet 600 mg PO Q6H PRN pain 08/13/25 08/13/25 ondansetron HCl 4 mg tablet 4 mg PO Q6H PRN nausea and vomiting 08/13/25 08/13/25 orphenadrine citrate 100 mg 100 mg PO BID 08/13/25 08/13/25 tablet,extended release oxycodone-acetaminophen 5 mg-325 1 tab PO Q4H PRN pain 08/13/25 08/13/25 mg tablet Allergies Allergy/AdvReac Type Severity Reaction Status Date / Time Penicillins Allergy Intermediate swelling Verified 08/10/25 00:36 piroxicam (From Feldene) Allergy Intermediate swelling Verified 08/10/25 00:36 Opioid HPI Opioid Management Most Recent Opioid Data: Last Pain Scale 10 08/10/25, 01:24 Last MAR Pain Assessment 08/10/25, 01:24 Review of Systems ROS Status of ROS 10 or more systems reviewed and unremarkable except as noted in history and below PFSH PFSH Social History Little interest or pleasure in doing things: not at all Feeling down, depressed, or hopeless: not at all Exam Constitutional Vital Signs, click to edit/add: Last Vital Signs Temp 98.4 F 08/13/25 01:04 Pulse 68 08/13/25 02:57 Resp 16 08/13/25 02:57 BP 136/64 08/13/25 05:53 Pulse Ox 90 L 08/13/25 02:57 O2 Del Method Room Air 08/13/25 01:04 Common normals: no apparent distress, oriented x3, no limitations, healthy appearing, alert and well nourished [facility] Common normals: normocephalic and head/scalp atraumatic Eye Common normals: EOMs intact bilaterally and conjunctivae normal Respiratory Common normals: normal respiratory effort, no retractions, no use of accessory muscles and clear to auscultation bilaterally Cardio Common normals: regular rate, regular rhythm, S1 normal heart sound and S2 normal heart sound GI Common normals: Normal to inspection, nondistended, normoactive bowel sounds present, soft to palpation and non-tender Back & Pelvis Other: L-spine tender Extremity Common normals: normal to inspection and full ROM Neuro Common normals: oriented x3, CN's II-XII intact bilaterally, moves all extremities and no focal motor deficits Psych Appearance: grossly normal Course Vital Signs Vital signs: Vital Signs Temperature 98.4 F 08/13/25 01:04 Pulse Rate 72 08/13/25 01:04 Respiratory Rate 18 08/13/25 01:04 Blood Pressure 148/63 H 08/13/25 01:04 Pulse Oximetry 92 L 08/13/25 01:04 Oxygen Delivery Method Room Air 08/13/25 01:04 Temperature 98.4 F 08/13/25 01:04 Pulse Rate 68 08/13/25 02:57 Respiratory Rate 16 08/13/25 02:57 Blood Pressure 136/64 08/13/25 05:53 Pulse Oximetry 90 L 08/13/25 02:57 Oxygen Delivery Method Room Air 08/13/25 01:04 MDM - Back Pain/Injury MDM Narrative Medical decision making narrative: patient presents with lower back pain. Seen last week for the same and diagnosed with compression fracture. Was able to control the pain with oxycodone. Now presents with increased pain and spasm of her lower back when she changes position. Pain radiates into her buttocks. No loss of control of bowel or bladder. Has pain just turning over on her side on the stretcher and is using bed han to urinate because too painful to use bed side commode. Patient medicated with valium, magnesium and solumedrol without improvement. Dilaudid ordered and CT L-spine ordered as she feels her pain is worse than last week CT returns with findings of L2 burst fracture with severe loss of vertebral body eight and approx 6mm retropulsion with involvement of the right pedicle. Height loss increased since CT 08/10/25. Patient is resting comfortably but does have pain with change in position. No neuro deficits. Discussed with Hospitalist Dr Glynn and patient accepted for admission Lab Data Labs: Lab Results 08/13/25 Range/Units 02:18 WBC 9.0 (4.0-11.0) 10^3/uL RBC 4.27 (4.20-5.40) 10^6/uL Hgb 15.1 (12.0-16.0) g/dL Hct 44.7 (36.0-48.0) % MCV 104.7 H (81.0-99.0) fL MCH 35.4 H (26.7-34.0) pg MCHC 33.8 (29.9-35.2) g/dL RDW 14.6 (11.0-15.0) % Plt Count 203 (150-450) 10^3/uL MPV 9.3 L (9.5-13.5) fL Neut % (Auto) 83.2 H (43.0-75.0) % Lymph % (Auto) 8.7 L (20.5-60.0) % Ector % (Auto) 6.3 (1.7-12.0) % Eos % (Auto) 1.5 (0.9-7.0) % Baso % (Auto) 0.1 L (0.2-2.0) % Neut # (Auto) 7.5 H (1.4-6.5) 10^3/uL Lymph # (Auto) 0.8 L (1.2-3.8) 10^3/uL Ector # (Auto) 0.6 (0.3-0.8) 10^3/uL Eos # (Auto) 0.1 (0.0-0.7) 10^3/uL Baso # (Auto) 0.0 (0.0-0.1) 10^3/uL Abs Immat Gran (auto) 0.02 (0.00-0.03) 10^3/uL Imm/Tot Granulo (auto) 0.2 (0.0-0.5) % ESR 43 H (<=30) mm/hr Sodium 133 L (136-145) mmol/L Potassium 5.3 H (3.5-5.1) mmol/L Chloride 94 L (98-107) mmol/L Carbon Dioxide 32.8 H (21.0-32.0) mmol/L Anion Gap 11.5 BUN 27.0 H (7.0-18.0) mg/dL Creatinine 1.18 H (0.55-1.02) mg/dL Est GFR ( Amer) 54 L (>=60 mL/min/1.73m^2) Est GFR (Non-Af Amer) 45 L (>=60 mL/min/1.73m^2) BUN/Creatinine Ratio 22.9 Glucose 98 (74-106) mg/dL Calcium 9.1 (8.5-10.1) mg/dL C-Reactive Protein 7.57 H (<=0.50) mg/dL Discharge Plan Discharge Chief Complaint: Back Pain/Injury Clinical Impression: Burst fracture of lumbar vertebra Patient Disposition: Admitted As Inpatient
[2025-08-13 02:22] LABS: Hematocrit 44.7 % (36.0-48.0); Hemoglobin 15.1 g/dL (12.0-16.0); Immature Granulocytes Abs Auto 0.02 10^3/uL (0.00-0.03); Immature Granulocytes Pct Auto 0.2 % (0.0-0.5); Lymphocytes Absolute Auto 0.8 10^3/uL (1.2-3.8); Mean Corpuscular HGB Conc 33.8 g/dL (29.9-35.2); Mean Corpuscular Hemoglobin 35.4 pg (26.7-34.0); Mean Corpuscular Volume 104.7 fL (81.0-99.0); Platelet Count 203 10^3/uL (150-450); Red Blood Count 4.27 10^6/uL (4.20-5.40); White Blood Count 9.0 10^3/uL (4.0-11.0)
[2025-08-13] MEDS: METHYLPREDNISOLONE SOD SUCC PF 125 MG/2 ML VIAL IVP (02:25)
[2025-08-13] MEDS: MAGNESIUM SULFATE IN WATER 2 GM/50 ML PREMIX IV (02:26)
[2025-08-13] MEDS: DIAZEPAM 10 MG/2 ML SYRINGE 5 MG IV (02:26)
[2025-08-13 02:33] LABS: Anion Gap 11.5; Blood Urea Nitrogen 27.0 mg/dL (7.0-18.0); Calcium 9.1 mg/dL (8.5-10.1); Carbon Dioxide 32.8 mmol/L (21.0-32.0); Chloride 94 mmol/L (98-107); Estimated GFR (African America 54 (>=60 mL/min/1.73m^2); Estimated GFR (Non-African Ame 45 (>=60 mL/min/1.73m^2); Glucose 98 mg/dL (74-106); Potassium 5.3 mmol/L (3.5-5.1); Sodium 133 mmol/L (136-145)
[2025-08-13] MEDS: HYDROMORPHONE HCL 1 MG/ML CARTRIDGE 0.5 MG IVP (04:41)
--- NOTE | 2025-08-13 07:07 | MR_ITS ---
The [address] [address] Patient Name: MERY CHAN MRN: [id number] date: 1950 Sex: F Assigned Patient Location: [place] Current Patient Location: [place] Accession/Order Number: [id number] Exam Date: 08/13/2025 08:05 Report Date: 08/13/2025 10:19 At the request of: BEBETO REDDY MD Procedure: MR lumbar spine wo con MRI LUMBAR SPINE WITHOUT CONTRAST COMPARISON: CT 08/13/2025 and 08/10/2025 CLINICAL DATA: Back pain with radiation to the right lower extremity numbness. Lumbar compression fracture at L2 on CT. Multiecho imaging in the axial and sagittal plane was performed without contrast. There is compression deformity at L2 with near planus configuration. There is retropulsion of the posterior endplate by at least 5 mm resulting in moderate thecal sac compression. There is some marrow increased signal on the STIR sequence suggesting edema that extends into the adjacent disc spaces. Although not prominent, the fracture is acute as it occurred between the 08/10 and 08/13 CT exams. There are no additional acute compression fractures or marrow edema. The conus medullaris terminates at L1. It is normal in caliber and signal. No paraspinal soft tissue abnormalities are noted. At T12-L1, there is no disc disease or stenosis. At L1-2, there is mild annular disc bulging greater toward the neural foramen. There is mild thecal sac effacement. There is mild to moderate inferior foraminal encroachment. At L2-3, there is minor annular disc bulging, greater toward the neural foramen. There is also slight facet and ligamentous hypertrophy and fluid within the facet joint on the right. There is minimal thecal sac effacement. There is mild to moderate foraminal encroachment on both sides. At L3-4, there is minor annular disc bulging, predominately toward the neural foramen. Bilateral facet hypertrophy, greater on the right and thickening of ligamentum flavum is seen. There is mild thecal sac effacement. There is mild bilateral foraminal encroachment. At L4-5, there is annular disc bulging, greater toward the neural foramen. There is bilateral facet hypertrophy and moderate thickening of the ligamentum flavum. Mild to moderate thecal sac effacement is present. There is mild to moderate left and mild foraminal encroachment. At the lumbosacral junction, there is no significant disc bulge or herniation. There is minor facet disease. No stenosis is identified. MR/MR lumbar spine wo con IMPRESSION: RECENT L2 COMPRESSION FRACTURE WITH RETROPULSION AND MODERATE THECAL SAC EFFACEMENT. DISCOVERTEBRAL DEGENERATIVE CHANGES, DESCRIBED. Impression dictated by: Fatou Jade M.D. 08/13/2025 10:19 AM Dictation Location: [place] [address] Electronically authenticated by: [id number] Y Date: 08/13/2025 10:19
[2025-08-13 07:22] LABS: Magnesium 1.8 mg/dL (1.8-2.4)
--- OUTSIDE RECORDS SUMMARY | 2025-08-13 08:20 | XMS_ITS | CCD ---
Author Organization [facility] CliniSywy Care Team Providers Care Machine Welder Name Role Phone MAHDI, BLAINE Unavailable Unavailable MAHDI, BLAINE Unavailable Unavailable MAHDI, BLAINE Unavailable Unavailable MAHDI, BLAINE Unavailable Unavailable AICHHOLZ, HAMMERER BRUNILDA Primary Care Unavailable MISC, DOCTOR Attending Unavailable MISC, DR SMITH Consulting Unavailable MISC, DR SMITH Admitting Unavailable AICHHOLZ, HAMMERER BRUNILDA Consulting Unavailable AICHHOLZ, HAMMERER BRUNILDA Admitting Unavailable AICHHOLZ, HAMMERER BRUNILDA Primary Care Unavailable AICHHOLZ, HAMMERER BRUNILDA Attending Unavailable MISC, DR SMITH Admitting Unavailable AICHHOLZ, HAMMERER BRUNILDA Primary Care Unavailable MISC, DR SMITH Attending Unavailable MISC, DR SMIHT Consulting Unavailable AICHHOLZ, HAMMERER BRUNILDA Attending Unavailable AICHHOLZ, HAMMERER BRUNILDA Consulting Unavailable AICHHOLZ, HAMMERER BRUNILDA Primary Care Unavailable AICHHOLZ, HAMMERER BRUNILDA Admitting Unavailable AICHHOLZ, HAMMERER BRUNILDA Primary Care Unavailable MISC, DR SMITH Attending Unavailable MISC, DR SMITH Consulting Unavailable AICHHOLZ, HAMMERER BRUNILDA Admitting Unavailable AICHHOLZ, HAMMERER BRUNILDA Primary Care Unavailable THERESA, DR KAPOOR Admitting Unavailable KOKO, DR KALEIGH Jameson Consulting Unavailable CARDENAS, DR KAPOOR Attending Unavailable CARDENAS, DR KAPOOR Consulting Unavailable MISC, DR SMITH Attending Unavailable AICHHOLZ, HAMMERER BRUNILDA Primary Care Unavailable MISC, DR SMITH Consulting Unavailable MISC, DR SMITH Admitting Unavailable Aichholz MEDICAL SAFETY DIRECTOR-GENI, Brunilda Altagracai Primary Care Provider Aichholz TELESCOPE REPAIRER, Brunilda Unavailable Jerry Shah MD Primary Care Provider AICHHOLZ, BRUNILDA Attending Unavailable AICHHOLZ, BRUNILDA Attending Unavailable Aichholz TELESCOPE REPAIRER-C, Brunilda J Primary Care Provider Milton LARA, Brunilda Frias Attending Provider [phone] Allergies Allergy ClassificationReported Allergen(s)Allergy TypeDate of OnsetReaction(s) Facility (12 sources)Penicillins; Translations: [PENICILLINS]Propensity to adverse reactions to drug (disorder)87-75-1368Hjeh, UnknownReg[facility] (11 sources)PiroxicamDrug Zmnwhir04-82-8913SgfylffvTzkOqqcnd Health System Medications Current Medications MedicationDrug Class(es)DatesSig (Normalized)Sig (Original)acetaminophen 325 mg oral tablet (1 source)Start: 08-68-9385bmwm 2 tablets by mouth every six hours as needed acetaminophen (TYLENOL) 325 mg tablet Take 650 mg by mouth every 6 (six) hours as needed. 0 10/30/2016 Active0.8 ml adalimumab 50 mg/ml prefilled syringe (11 sources)Tumor Necrosis Factor BlockerStart: 44-52-9687Bbxpwmcanv (Humira) 40 mg/0.8 mL syringe kit Active [...] acid 70 mg oral tablet (5 sources)BisphosphonateStart: 04-81-7986bbfv 1 tablet by mouth every week Alendronate (Fosamax) 70 mg tablet Active 70 MG PO every week July 13, 2025 12:00am Complieswith drug therapyStart: 19-16-9676wmjqaxkfsmv (Fosamax) 70 MG tablet Take 70 mg by mouth every 7 (seven) days 11/28/2024 Activeallopurinol 300 mg oral tablet (11 sources)Xanthine Oxidase InhibitorStart: 45-19-5315ymhk 1 tablet by mouth once dailyAllopurinol 300 mg tablet Active 300 MG PO Daily July 13, 2025 12:00am Complies with drug therapyStart: 40-18-4274niwy 1 tablet by mouth in the morningallopurinol (Zyloprim) 300 MG tablet Take 1 tablet by mouth in the morning. 09/30/2023 Activecalcium citrate/vitamin D3 (CITRACAL REGULAR ORAL) (1 source)take 2 tablets by mouth once dailycalcium citrate/vitamin D3 (CITRACAL REGULAR ORAL) Take 2 tablets by mouth daily. 0 Activecalcium polycarbophil 625 mg oral tablet (11 sources)Start: 12-78-3384Ouqthio Polycarbophil 625 mg tablet Active 1250 MG PO Daily July 13, 2025 12:00am Complies with drug therapytake 1 tablet by mouth in the morningCalcium Polycarbophil (fiber) 625 MG tablet Take 625 mg by mouth in the morning. Activecetirizine hydrochloride 10 mg oral tablet (11 sources)Histamine-1 Receptor AntagonistStart: 09-70-8155mawf 1 tablet by mouth once daily as [...] Activecolchicine 0.6 mg oral tablet (13 sources)Start: 62-54-6104qsno 1 tablet by mouth once daily as needed Colchicine 0.6 mg tablet Active 0.6 MG PO Daily as needed for gout July 13, 2025 12:00am Complies with drug therapyStart: 07-47-4857pnremsnszx 0.6 MG tablet Take 0.6 mg by mouth As directed 05/25/2024 ActiveStart: 09-30-2023 End: 57-59-8674duqw 1 capsule by mouth in the morningMitigare 0.6 MG capsule Take 1 capsule by mouth in the morning. 09/30/2023 06/12/2024 Discontinued ( Therapy completed)Start: 72-77-5659joue 1 tablet by mouth once dailycolchicine (COLCRYS) 0.6 mg tablet Take 0.6 mg by mouth daily. 0 03/30/2017 Activedocusate sodium 100 mg oral capsule (1 source)Start: 72-70-5707ojip 1 capsule by mouth every twelve hours as needed docusate sodium (COLACE) 100 mg capsule Take 100 mg by mouth every 12 (twelve) hours as needed. 0 10/30/2016 Activefolic acid 1 mg oral tablet (14 sources)Start: 34-82-2057bzbv 1 tablet by mouth once dailyFolic Acid 1 mg tablet Active 1 MG PO Daily July 16, 2025 12:00am Complies with drug therapyStart: 11-28-2024 End: 82-16-1522oohv 1 tablet by mouth once dailyfolic acid (Folvite) 1 MG tablet Indications: Rheumatoid arthritis with rheumatoid factor, unspecified (CMS/HCC) Take 1 tablet (1 mg) by mouth Daily 90 tablet 3 12/20/2024 03/20/2025 Active Start: 09-30-2023 End: 52-69-3990thmq 1 tablet by mouth once daily in the morningfolic acid (Folvite) 1 MG tablet Indications: Rheumatoid arthritis with positive rheumatoid factor,involving unspecified site (CMS/HCC) Take 1 tablet (1,000 mcg) by mouth Daily Take 1 tablet by mouth in the morning. 90 tablet 3 06/12/2024 09/10/2024 Activefurosemide 40 mg oral tablet (15 sources)Loop DiureticStart: 13-80-6277sjod 1 tablet by mouth once daily Furosemide (Lasix) 40 mg tablet Active 40 MG PO Daily July 13, 2025 12:00am Complies with drug therapyStart: 12-13-2023 End: 83-63-2708rovt 1 tablet by mouth once dailyfurosemide (Lasix) 40 MG tablet Indications: Lower extremity edema Take 1 tablet (40 mg) by mouth Daily 90 tablet 3 12/20/2024 03/20/2025 ActiveStart: 11-11-6672cqvz 1 tablet by mouth once dailyfurosemide (LASIX) 40 mg tablet Take 40 mg by mouth daily. 0 06/13/2016 Activegabapentin 300 mg oral capsule (19 sources)Anti-epileptic AgentStart: 81-08-3899deoj 1 capsule by mouth twice dailyGabapentin 300 mg capsule Active 300 MG PO Twice daily July 13, 2025 12:00am Complies with drug therapyStart: 12-13-2023 End: 68-76-0634tham 1 capsule by mouth in the morninggabapentin (Neurontin) 300 MG capsule Indications: Polyneuropathy Take 1 capsule (300 mg) by mouth in the morning and 1 capsule (300 mg) before bedtime. 180 capsule 3 12/20/2024 03/20/2025 ActiveStart: 12-13-2023 End: 05-84-2451avgl 1 capsule by mouth in the morninggabapentin (Neurontin) 100 MG capsule Indications: Polyneuropathy Take 1 capsule (100 mg) by mouth in the morning. 90 capsule 3 12/13/2023 06/12/2024 Discontinued (Ineffective)Start: 41-71-5021nmwv 1 capsule by mouth once dailygabapentin (NEURONTIN) 300 mg capsule Take 300 mg by mouth nightly. 0 06/08/2016 Activegabapentin (NEURONTIN) 100 mg capsule Take 100 mg by mouth daily. !00 mg in AM, and 300 MG in PM 0 A ctivelevothyroxine sodium 0.15 mg oral tablet (15 sources)l-ThyroxineStart: 34-09-3788cnvw 1 tablet by mouth once daily Levothyroxine 150 mcg tablet Active 150 MCG PO Daily July 13, 2025 12:00am Complies with drug therapyStart: 12-13-2023 End: 39-37-4608ldug 1 tablet by mouth before mealtimelevothyroxine (Synthroid, Levoxyl) 150 MCG tablet Indications: Hypothyroidism, unspecified type (CMS/HCC) Take 1 tablet (150 mcg) by mouth in the morning. Take before meals. 90 tablet 3 12/20/2024 03/20/2025 ActiveStart: 75-63-8798iqrp 1 tablet by mouth once daily levothyroxine (SYNTHROID, LEVOTHROID) 175 MCG tablet Take 175 mcg by mouth daily. 0 08/04/2019 Activelisinopril 10 mg oral tablet (15 sources)Angiotensin Converting Enzyme InhibitorStart: 16-56-5488uepj 1 tablet by mouth once dailyLisinopril 10 mg tablet Active 10 MG PO Daily July 13, 2025 12:00am Complies with drug therapyStart: 12-13-2023 End: 81-89-2961jrgd 1 tablet by mouth once dailylisinopril 10 [...] hydroxide 80 mg/ml oral suspension (1 source)Start: 15-66-8014nkhiloabt hydroxide (MILK OF MAGNESIA) 400 mg/5 mL suspension Take 15 mL by mouth. 0 10/30/2016 Activemethotrexate 2.5 mg oral tablet (11 sources)Folate Analog Metabolic InhibitorStart: 38-36-7815ydfz 1 tablet by mouth every weekMethotrexate Sodium [...] mouth daily. 0 ActiveMultivitamin tablet (1 source)Start: 86-92-7967riak 1 tablet by mouth once dailyMultivitamin tablet Active 1 TAB PO Daily July 13, 2025 12:00am Complies with drug therapy omeprazole 20 mg delayed release oral capsule (13 sources)Proton Pump InhibitorStart: 05-79-5588unhm 1 capsule by mouth once dailyOmeprazole 20 mg capsule,delayed release(DR/EC) Active 20 MG PO Daily July 13, 2025 12:00am Complies with drug therapyStart: 12-13-2023 End: 42-15-2564pgbv 1 capsule by mouth before mealtimeomeprazole (PriLOSEC) [address] capsule Indications: Gastroesophageal reflux disease without esophagitis Take 1 capsule (20 mg) by mouth in the morning. Take before meals. 90 capsule 3 12/20/2024 03/20/2025 Activetake 1 capsule by mouth once dailyomeprazole (PriLOSEC) 20 mg capsule Take 20 mg by mouth daily. 0 Activepotassium chloride 10 meq extended release oral tablet (15 sources)Start: 50-89-7437tedm 2 tablets by mouth twice dailyPotassium Chloride 10 mEq tablet extended release Active 20 MEQ PO Twice daily July 132:00am Complies with drug therapyStart: 86-02-0553cbmftwfne chloride CR (Klor-Con) 10 MEQ ER tablet Indications: Lower extremity edema 2 pills twice a day 360 tablet 3 12/20/2024 ActiveStart: 12-13-2023 End: 13-36-4023hdmvbwkww chloride CR (Klor-Con) 10 MEQ ER tablet Indications: Lower extremity edema 2 pills twice a day2 pills twice a day 360 tablet 3 06/12/2024 12/20/2024 Discontinued (Reorder)Start: 00-90-2593ohofzbljb chloride (K-DUR,KLOR-CON) 10 MEQ CR tablet Take 10 mEq by mouth daily. 0 03/30/2017 ActivepredniSONE 5 mg oral tablet (11 sources)Start: 98-18-9388khys 7.5 mg by mouth once dailyPrednisone 5 mg tablet Active 7.5 MG PO Daily July 13, 2025 12:00am Complies with drug therapyStart: 53-63-1634kwvw 1.5 tablets by mouth in the morningpredniSONE (Deltasone) 5 MG tablet Take 1.5 tablets by mouth in the morning. 09/30/2023 Activetake 1 tablet by mouth once dailypredniSONE (DELTASONE) 5 mg tablet Take 5 mg by mouth daily. 0 Activevitamin b12 1 mg/ml injectable solution (1 source)Vitamin W43jxchwfeatimkbb (VITAMIN B-12) 1,000 mcg/mL injection Inject 1,000 mcg into the appropriate muscle every 30 (thirty) days. 0 Active Problems Active Problems Problem ClassificationProblemDateDocumented DateEpisodic/ChronicAbdominal pain (10 sources)Generalized abdominal pain; Translations: [Generalized abdominal pain]Onset: 041239-47-6002DtibsrcmFddbdv of other female genital organs (20 sources)Vulval intraepithelial neoplasia grade 3; Translations: [Carcinoma in situ of vulva]Onset: 007023-30-2889WlctwhsKkzhkcms mellitus without complication (14 sources)Hyperglycemia; Translations: [Hyperglycemia, unspecified]Onset: 476545-11-7129CxqlfeyfIgvxnohrpf disorders (15 sources)Gastroesophageal reflux disease without esophagitis; Translations: [Gastro-esophageal reflux disease without esophagitis]Onset: 10-06-2016 61-50-3411CqtfrrwUaoqhrpdj hypertension (15 sources)Hypertensive disorder; Translations: [Essential (primary) hypertension]Onset: 838079-06-0746WsfgjtnCtgw and other crystal arthropathies (20 sources)Idiopathic gout, multiple sites; Translations: [Chronic primary gouty arthritis]Onset: 380253-35-1627ShktlppGhzhxcs and fatigue (12 sources)Fatigue; Translations: [Other fatigue]Onset: EpisodicNutritional deficiencies (10 sources)Cobalamin deficiency; Translations: [Deficiency of other specified B group vitamins]Onset: 114573-19-7355BcvkgbqcLbfwhkzykshnhh (11 sources)Primary generalized (osteo)arthritis; Translations: [Osteoarthritis] Onset: 799933-14-0300JxufssuWwskifhdiqlb (16 sources)Age-related osteoporosis without current pathological fracture; Translations: [Osteoporosis]Onset: 06-70-1302YvrjuleYzdmv aftercare (1 source)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; Translations: [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 [employer]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 CURRENT DRUG THERAPY]Onset: 70-13-1809GqejcpjpVygzc connective tissue disease (10 sources)H/O: osteoarthritis; Translations: [Personal history of other diseases of the musculoskeletal system and connective tissue]Onset: 12-13-2023 71-95-4279XoxcfuxuLdyay connective tissue disease (1 source)Calcaneal spur; Translations: [Calcaneal spur, unspecified foot] 82-88-5142FpnyxqctPkqmr nervous system disorders (14 sources)Polyneuropathy; Translations: [Polyneuropathy, unspecified]Onset: 755476-99-0717LznjiidXyaqz non-traumatic joint disorders (10 sources)Pain in left shoulder; Translations: [Pain in joint, shoulder region]Onset: 129421-89-5217ZfguohbfWpzfb nutritional; endocrine; and metabolic disorders (15 sources)Body mass index 40+ - severely obese; Translations: [Body mass index (BMI) 45.0-49.9, adult]Onset: 262782-33-7595OfgsairVhzhg nutritional; endocrine; and metabolic disorders (15 sources)Obesity caused by energy imbalance; Translations: [Morbid (severe) obesity due to excess calories]Onset: 699560-29-2473AjtvddoHkntj upper respiratory disease (10 sources)Allergic rhinitis; Translations: [Allergic rhinitis, unspecified] Onset: 476181-45-7554OwkszugJyhogdmf codes; unclassified (15 sources)Edema of lower extremity; Translations: [Localized edema]Onset: 767010-81-6839ItaltanzTrfqhiqv codes; unclassified (10 sources)Noncompliance with treatment; Translations: [Non-compliant patient] Onset: 623472-85-2316KayrvoybHhjwgiqpib arthritis and related disease (20 sources)Rheumatoid arthritis with rheumatoid factor of multiple sites without organ or systems involvement;Translations: [Rheumatoid arthritis]Onset: 10-06-2016 Resolved: 50-30-1635MusxiilJkkoqbtxy-related disorders (17 sources)Smoker; Translations: [Nicotine dependence, unspecified, uncomplicated]Onset: 10-06-2016 Resolved: 403894-07-9712YsceuhnMwnhojq disorders (19 sources)Hypothyroidism, unspecified; Translations: [Hypothyroidism]Onset: 90-09-7823UsjyzfwCwclsgiytnwe (1 source)Unknown / UNK(Unknown)Onset: 04-15-2018 Past or Other Problems Problem ClassificationProblemDateDocumented DateEpisodic/ChronicDiabetes mellitus without complication (9 sources)Type 2 diabetes mellitus without complication; Translations: [Type 2 diabetes mellitus without complications]Onset: 11-22-2023 Resolved: 388178-06-5017FstxjwnHoac disorders (9 sources)Mood disordersOnset: 12-13-2023 Resolved: Other connective tissue disease (9 sources)Calcaneal spur of left foot; Translations: [Calcaneal spur, left foot]Onset: 482701-57-3063VykyqoskZkcgi nutritional; endocrine; and metabolic disorders (9 sources)Morbid obesity; Translations: [Morbid (severe) obesity due to excess calories]Onset: 10-06-2016 Resolved: 919621-79-4419DtqgfniXvgutoxg codes; unclassified (11 sources)Tobacco user; Translations: [Tobacco use]Onset: 12-13-2023 Resolved: 879073-45-0821Mjanaacg Results Test NameValueInterpretationReference RangeFacilityALL CBC WITH AUTO DIFFon 95-53-0185ZDIELSILG ABSOLUTE NYOP8SLVB HealthcareBasophils/100 WBC (Bld)0.3 %0.2 - 2.0 %NOMLiberty HospitalEosinophils/100 WBC (Bld)6.1 %0.9 - 7.0 %[facility] Erythrocyte distribution width (RBC) [Ratio]14.9 %11.0 - 15.0 %[facility] Hematocrit (Bld) [Volume fraction]46.7 %36.0 - 48.0 %[facility] HospitalHemoglobin (Bld) [Mass/Vol]15 g/dL12.0 - 16.0 g/dLNOFreeman Neosho HospitalIMMATURE GRANULOCYTES ABS AUTO0.02NOFreeman Neosho HospitalImmature granulocytes/100 WBC (Bld)0.3 %0.0 - 0.5 %[facility] HospitalInterpretation and review of laboratory resultsAbnormalNOFreeman Neosho Hospital LYMPHOCYTES ABSOLUTE AUTO1.9NOFreeman Neosho HospitalLymphocytes/100 WBC (Bld)26 %20.5 - 60.0 %[facility] HospitalMCH (RBC) [Entitic mass]33.6 pg26.7 - 34.0 pgNOThree Rivers HealthcareHC (RBC) [Mass/Vol]32.1 g/dL29.9 - 35.2 g/dLSaint Luke's East HospitalMCV (RBC) [Entitic vol]104.5 uXChpv45.0 - 99.0 fLNOFreeman Neosho HospitalMONOCYTES ABSOLUTE AUTO 0.6NOMS HealthcareMonocytes/100 WBC (Bld)7.5 %1.7 - 12.0 %[facility] NEUTROPHILS ABSOLUTE AUTO4.4NOFreeman Neosho HospitalNeutrophils/100 WBC (Bld)59.8 %43.0 - 75.0 %[facility] HospitalPlatelet mean volume (Bld) [Entitic vol]9 fLLow9.5 - 13.5 fLSaint Luke's East HospitalTBH EO #0.5NOMS [facility] [id number] [facility] RBC4.47 [facility]OMPark[facility] Health Center WBC7.3NOFreeman Neosho HospitalCLINISYNCNOMS HealthcareALL CBC WITH AUTO DIFFon 84-48-0966QXLJAUICC ABSOLUTE CXMQ9NKPLFreeman Neosho HospitalBasophils/100 WBC (Bld)0.3 %0.2 - 2.0 %[facility] HospitalEosinophils/100 WBC (Bld)4.4 %0.9 - 7.0 % [facility] HospitalErythrocyte distribution width (RBC) [Ratio]14.6 %11.0 - 15.0 % [facility] HospitalHematocrit (Bld) [Volume fraction]47.5 %36.0 - 48.0 %[facility] HospitalHemoglobin (Bld) [Mass/Vol]15.3 g/dL12.0 - 16.0 g/dLSaint Luke's [facility] Hospital IMMATURE GRANULOCYTES ABS AUTO0.03NOFreeman Neosho HospitalImmsture granulocytes/100 WBC (Bld)0.4 %0.0 - 0.5 %[facility] HospitalInterpretation and review of laboratory resultsAbnormalSaint Luke's East HospitalLYMPHOCYTES ABSOLUTE AUTO1.3NOFreeman Neosho Hospital Lymphocytes/100 WBC (Bld)15.8 %Low20.5 - 60.0 %[facility] CenterH (RBC) [Entitic mass]33.7 pg26.7 - 34.0 pgSaint Louis University Health Science CenterHC (RBC) [Mass/Vol]32.2 g/dL29.9 - 35.2 g/dLSaint Louis University Health Science CenterV (RBC) [Entitic vol]104.6 nJZoon47.0 - 99.0 fLSaint Luke's East HospitalMONOCYTES ABSOLUTE AUTO0.5NOFreeman Neosho HospitalMonocytes/100 WBC (Bld)6.4 % 1.7 - 12.0 %[facility] HospitalNEUTROPHILS ABSOLUTE AUTO5.8NOPR [facility] Neutrophils/100 WBC (Bld)72.7 %43.0 - 75.0 %[facility] HealthcarePlatelet mean volume (Bld) [Entitic vol]9.1 fLLow9.5 - 13.5 fLNOPR HealthcareTBH EO #0.4NOMS HealthcareTBH [id number] [facility] CenterTB RBC4.54NOMS [facility] CenterTB [id number] HealthcareCLINISYNCNOMS HealthcareMLR HEMOGLOBIN A1Con 67-87-5967Kwkyytw [Mass/Vol]111 mg/dLNOFreeman Neosho HospitalBkhqtqnbxlDqN6c (Bld) [Mass fraction]5.5 %4.5 - 6.2 % [facility] HealthcareComment on above:ADA RECOMMENDED LIMIT 4.0 - 6.0 ADA THERAPEUTIC TARGET < 7.0 ACTION SUGGESTED > 7.0 CLINISYNCNOFreeman Neosho HospitalCBC AUTO DIFFon 68-34-7650ELVG #0.0 103/ulNormal0.0-0.1 Regional Medical CenterComment on above:Performed By: #### TSH #### [facility] [address] [place] [address] Dr. Marla VarnerBasophils/100 WBC (Bld)0.1 %Critically low0.2-2.0The [facility] HospitalComment on above:Performed By: #### TSH #### [facility] [address] [place] [address] Dr. Marla Velasquez #0.3 103/ulNormal0.0-0.7The [facility] HospitalComment on above: Performed By: #### TSH #### [facility] [address] [place] [address] Dr. Marla Schultzosinophils/100 WBC (Bld)4.6 %Normal0.9-7.0[facility] Comment on above:Performed By: #### TSH #### [facility] [address] [place] [address] Dr. Marla Schultzrythrocyte distribution width (RBC) [Ratio]14.6 %Gjyoma70.0-15.0 [facility] Medical CenterComment on above:Performed By: #### TSH #### [facility] [address] [place] [address] Dr. Marla VarnerHematocrit (Bld) [Volume fraction]46.0 %Zunkvj98.0-48.0The [facility] HospitalComment on above:Performed By: #### TSH #### [facility] [address] [place] [address] Dr. Marla VarnerHemoglobin (Bld) [Mass/Vol]15.1 g/sBIgjfgs75.0-16.0The [facility] HospitalComment on above:Performed By: #### TSH #### [facility] [address] [place] [address] Dr. Marla VarnerIG #0.01 10e3/ulNormal0.00-0.03The [facility] HospitalComsheridan community hospital on above:Performed By: #### TSH #### [facility] [address] [place] [address] Dr. Marla VarnerIG %0.1 %Normal0.0-0.5The [facility] HospitalComment on above: Performed By: #### TSH #### [facility] [address] [place] [address] Dr. Marla Irby #1.3 103/ulNormal1.2-3.8The [facility] HospitalComsheridan community hospital on above:Performed By: #### TSH #### [facility] [address] [place] [address] Dr. Marla Hydemphocytes/100 WBC (Bld)19.7 %Critically low20.5-60.0The [facility] HospitalComsheridan community hospital on above:Performed By: #### TSH #### [facility] [address] [place] [address] Dr. Marla VarnerMANUAL DIFF REQNONormalThe [facility] HospitalComment on above: Performed By: #### TSH #### [facility] [address] [place] [address] Dr. Marla Townsend (RBC) [Entitic mass]33.6 eoGbmnmw68.7-34.0The [facility] HospitalComment on above:Performed By: #### TSH #### [facility] [address] [address] [address] Marla McgrathHC (RBC) [Mass/Vol]32.8 g/iQZxnuqu11.9-35.2The [facility] HospitalComment on above:Performed By: #### TSH #### [facility] [address] [place] [address] Dr. Marla McgrathV (RBC) [Entitic vol]102.4 fLCritically high81.0-99.0The [facility] HospitalComment on above:Performed By: #### TSH #### [facility] [address] [place] [address] Dr. Marla Morales #0.5 103/ulNormal0.3-0.8The [facility] HospitalComment on above:Performed By: #### TSH #### [facility] [address] [place] [address] Dr. Marla Messinaocytes/100 WBC (Bld)7.3 %Normal1.7-12.0The [facility] Comment on above:Performed By: #### TSH #### [facility] [address] [place] [address] Dr. Marla Dave #4.6 103/ulNormal1.4-6.5The [facility] HospitalComment on above:Performed By: #### TSH #### [facility] [address] [place] [address] Dr. Marla Mcallisterutrophils/100 WBC (Bld)68.2 %Cbyote36.0-75.0The [facility] HospitalComment on above:Performed By: #### TSH #### [facility] [address] [place] [address] Dr. Marla Obrienlet mean volume (Bld) [Entitic vol]9.1 fLCritically low 9.5-13.5The [facility] HospitalComment on above:Performed By: #### TSH #### [facility] [address] [place] [address] Dr. Marla VarnerPLT194 103/aoGzzydh172-154Unk [facility] HospitalComment on above: Performed By: #### TSH #### [facility] [address] [place] [address] Dr. Marla VarnerRBC4.49 106/ulNormal4.20-5.40[facility] on above:Performed By: #### TSH #### [facility] [address] [place] [address] Dr. Marla VarnerWBC6.7 103/ulNormal4.0-11.0The [facility] Hospitalment on above: Performed By: #### TSH #### [facility] [address] [place] [address] Dr. Marla BeardF 14(COMP METB)on 38-98-0035Hxscrde [Mass/Vol]3.6 g/dLNormal 3.4-5.0[facility] on above:Performed By: #### URIC, CMP #### [facility] [address] [place] [address] Dr. Marla VarnerAlbumin/Globulin [Mass ratio]1.0 {ratio}NormalThe [facility] on above:Performed By: #### URIC, CMP #### [facility] [address] [place] [address] Dr. Marla Bynum [Catalytic activity/Vol]93 U/IDonahp00-679[facility] on above:Performed By: #### URIC, CMP #### [facility] [address] [place] [address] Dr. Marla Altamirano [Catalytic activity/Vol]26 U/JNpfrfd17-92Non [facility] on above:Performed By: #### URIC, CMP #### [facility] [address] [place] [address] Dr. Marla Rowell gap [Moles/Vol]12.3 mmol/LNormalThe [facility] on above:Performed By: #### URIC, CMP #### [facility] [address] [place] [address] Dr. Marla Reyes [Catalytic activity/Vol]20 U/VAgbedg99-21[facility] HospitalComment on above:Performed By: #### URIC, CMP #### [facility] [address] [address] [address] Marla VarnerBilirubin [Mass/Vol]0.4 mg/dLNormal0.2-1.0The [facility] Comment on above:Performed By: #### URIC, CMP #### [facility] [address] [place] [address] Dr. Marla VarnerCalcium [Mass/Vol]9.2 mg/dLNormal8.5-10.1The [facility] Comment on above:Performed By: #### URIC, CMP #### [facility] [address] [place] [address] Dr. Marla VarnerChloride [Moles/Vol]102 mmol/XNriemt11-457Ljt [facility] Comment on above:Performed By: #### URIC, CMP #### [facility] [address] [place] [address] Dr. Marla VarnerCO2 [Moles/Vol]32.3 mmol/LCritically high21.0-32.0The [facility] HospitalComment on above:Performed By: #### URIC, CMP #### [facility] [address] [place] [address] Dr. Marla VarnerCreatinine [Mass/Vol]0.84 mg/dLNormal0.55-1.02The [facility] HospitalComment on above:Performed By: #### URIC, CMP #### [facility] [address] [place] [address] Dr. Marla SchultzGFR-AF KOSOVAN>60Normal>=60The [facility] HospitalComment on above:Performed By: #### URIC, CMP #### [facility] [address] [place] [address] Dr. Marla SchultzGFR-NON AF KOSOVAN>60Normal>=60The [facility] on above:Performed By: #### URIC, CMP #### [facility] [address] [place] [address] Dr. Marla VarnerGlobulin (S) [Mass/Vol]3.7 g/dLNormalThe Chancellor HospitalComment on above:Performed By: #### URIC, CMP #### [facility] [address] [address] [address] Marla VarnerGlucose [Mass/Vol]114 mg/dLCritically jejh07-458Kpt [facility] HospitalComment on above:Performed By: #### URIC, CMP #### [facility] [address] [place] [address] Dr. Marla VarnerPotassium [Moles/Vol]4.6 mmol/LNormal3.5-5.1The [facility] Comment on above:Performed By: #### URIC, CMP #### [facility] [address] [place] [address] Dr. Marla VarnerProtein [Mass/Vol]7.3 g/dLNormal6.4-8.2[facility] Comment on above:Performed By: #### URIC, CMP #### [facility] [address] [place] [address] Dr. Marla VarnerSodium [Moles/Vol]142 mmol/XJqmscq914-700Lzt [facility] Comment on above:Performed By: #### URIC, CMP #### [facility] [address] [place] [address] Dr. Marla VarnerUrea nitrogen [Mass/Vol]15.0 mg/dLNormal7.0-18.0The [facility] HospitalComment on above:Performed By: #### URIC, CMP #### [facility] [address] [place] [address] Dr. Marla Vital nitrogen/Creatinine [Mass ratio]17.9 mg/mgNoGreen Cross HospitalComment on above:Performed By: #### URIC, CMP #### [facility] [address] [place] [address] Dr. Marla VarnerSED RATE WESTERGRENon 76-71-8920SON RATE47 mm/hrCritically high <=30The [facility] HospitalComment on above:Performed By: #### SEDR #### [facility] [address] [place] [address] Dr. Marla Leavitt ACID SERUMon [id number] [Mass/Vol]3.3 mg/dLNormal 2.6-6.0The [facility] HospitalComment on above:Performed By: #### URIC, CMP #### [facility] [address] [place] [address] Dr. Marla Lowe AUTO DIFFon [id number] #0.0 103/ulNormal0.0-0.1The [facility] HospitalComment on above:Performed By: #### INSULT #### [facility] [address] [place] [address] Dr. Marla VarnerBasophils/100 WBC (Bld)0.3 %Normal0.2-2.0The [facility] Comment on above:Performed By: #### INSULT #### [facility] [address] [place] [address] Dr. Gutiérrez ChangEO #0.4 103/ulNormal0.0-0.7The [facility] HospitalComment on above: Performed By: #### INSULT #### [facility] [address] [place] [address] Dr. Marla Schultzosinophils/100 WBC (Bld)5.8 %Normal0.9-7.0The [facility] Comment on above:Performed By: #### INSULT #### [facility] [address] [place] [address] Dr. Marla Schultzrythrocyte distribution width (RBC) [Ratio]14.8 %Ywfogc37.0-15.0 The [facility] HospitalComment on above:Performed By: #### INSULT #### [facility] [address] [place] [address] Dr. Marla VarnerHematocrit (Bld) [Volume fraction]44.4 %Qgemjt12.0-48.0The [facility] HospitalComment on above:Performed By: #### INSULT #### [facility] [address] [place] [address] Dr. Marla VarnerHemoglobin (Bld) [Mass/Vol]14.6 g/uSZxewof39.0-16.0The [facility]anca HospitalComment on above:Performed By: #### INSULT #### [facility] [address] [address] [address] Marla Quezada #0.02 10e3/ulNormal0.00-0.03[facility] on above:Performed By: #### INSULT #### [facility] [address] [place] [address] Dr. Marla Quezada %0.3 %Normal0.0-0.5The [facility] HospitalComment on above: Performed By: #### INSULT #### [facility] [address] [place] [address] Dr. Marla Irby #1.6 103/ulNormal1.2-3.8[facility] on above:Performed By: #### INSULT #### [facility] [address] [place] [address] Dr. Marla Ibarrahocytes/100 WBC (Bld)21.6 %Jdxdio71.5-60.0[facility] on above:Performed By: #### INSULT #### [facility] [address] [place] [address] Dr. Marla TranUAL DIFF REQNONormalThe [facility] HospitalCom[facility] on above: Performed By: #### INSULT #### [facility] [address] [place] [address] Dr. Marla Mcgrath (RBC) [Entitic mass]33.8 hmXjlnzd40.7-34.0The [facility] HospitalComment on above:Performed By: #### INSULT #### [facility] [address] [place] [address] Dr. Marla Mcgrath (RBC) [Mass/Vol]32.9 g/zDAwqpvn55.9-35.2The [facility]ment on above:Performed By: #### INSULT #### [facility] [address] [place] [address] Dr. Marla Mcgrath (RBC) [Entitic vol]102.8 fLCritically high81.0-99.0The [facility] HospitalComment on above:Performed By: #### INSULT #### [facility] [address] [address] [address] Marla Morales #0.5 103/ulNormal0.3-0.8The [facility] HospitalComment on above:Performed By: #### INSULT #### [facility] [address] [address] [address] Marla Messinaocytes/100 WBC (Bld)6.9 %Normal1.7-12.0The [facility] Comment on above:Performed By: #### INSULT #### [facility] [address] [place] [address] Dr. Marla Dave #4.7 103/ulNormal1.4-6.5The [facility] HospitalComment on above:Performed By: #### INSULT #### [facility] [address] [place] [address] Dr. Marla Mcallisterutrophils/100 WBC (Bld)65.1 %Hbzluu38.0-75.0The [facility] HospitalComment on above:Performed By: #### INSULT #### [facility] [address] [place] [address] Dr. Marla Walden mean volume (Bld) [Entitic vol]9.3 fLCritically low 9.5-13.5The [facility] HospitalComment on above:Performed By: #### INSULT #### [facility] [address] [place] [address] Dr. Marla VarnerPLT200 103/bgDibeoj711-411Cly [facility] HospitalComment on above: Performed By: #### INSULT #### [facility] [address] [place] [address] Dr. Marla VarnerRBC4.32 106/ulNormal4.20-5.40The [facility] HospitalComment on above:Performed By: #### INSULT #### [facility] [address] [place] [address] Dr. Marla VarnerWBC7.2 103/ulNormal4.0-11.0The [facility] HospitalComment on above: Performed By: #### INSULT #### [facility] [address] [place] [address] Dr. Marla Love T3on 66-52-8064YNLX T32.20 pg/mlLNormal2.18-3.98The [facility] Hospitalment on above:Performed By: #### TSH #### [facility] [address] [place] [address] Dr. Marla Love T4on 59-61-6266Vroc T4 [Mass/Vol]1.30 ng/dLNormal0.76-1.46 The [facility] HospitalComment on above:Performed By: #### TSH #### [facility] [address] [place] [address] Dr. Marla Solis 14(COMP METB)on 55-41-7728Famskfe [Mass/Vol]3.4 g/dLNormal 3.4-5.0The [facility] HospitalComment on above:Performed By: #### CMP, URIC #### [facility] [address] [place] [address] Dr. Marla VarnerAlbumin/Globulin [Mass ratio]0.9 {ratio}NormalThe [facility] Hospitalment on above:Performed By: #### CMP, URIC #### [facility] [address] [place] [address] Dr. Marla Bynum [Catalytic activity/Vol]92 U/PMyussr69-880Bck [facility] Hospitalment on above:Performed By: #### CMP, URIC #### [facility] [address] [place] [address] Dr. Marla Altamirano [Catalytic activity/Vol]17 U/UQoqvzq61-19Ski [facility] Hospitalment on above:Performed By: #### CMP, URIC #### [facility] [address] [place] [address] Dr. Marla Rowell gap [Moles/Vol]10.7 mmol/LNormalThe [facility] on above:Performed By: #### CMP, URIC #### [facility] [address] [address] [address] Marla VarnerAST [Catalytic activity/Vol]17 U/UZjygpu04-81Sve [facility] HospitalComment on above:Performed By: #### CMP, URIC #### [facility] [address] [address] [address] Marla VarnerBilirubin [Mass/Vol]0.4 mg/dLNormal0.2-1.0The [facility] Comment on above:Performed By: #### CMP, URIC #### [facility] [address] [place] [address] Dr. Marla VarnerCalcium [Mass/Vol]8.8 mg/dLNormal8.5-10.1The [facility] Comment on above:Performed By: #### CMP, URIC #### [facility] [address] [place] [address] Dr. Marla VarnerChloride [Moles/Vol]101 mmol/WXqlbyg86-982Wcx [facility] Comment on above:Performed By: #### CMP, URIC #### [facility] [address] [place] [address] Dr. Marla VarnerCO2 [Moles/Vol]32.5 mmol/LCritically high21.0-32.0The [facility] HospitalComment on above:Performed By: #### CMP, URIC #### [facility] [address] [place] [address] Dr. Marla VarnerCreatinine [Mass/Vol]0.72 mg/dLNormal0.55-1.02The [facility] HospitalComment on above:Performed By: #### CMP, URIC #### [facility] [address] [place] [address] Dr. Marla SchultzGFR-AF KOSOVAN>60Normal>=60The [facility] HospitalComment on above:Performed By: #### CMP, URIC #### [facility] [address] [place] [address] Dr. Marla SchultzGFR-NON AF KOSOVAN>60Normal>=60The [facility] HospitalComment on above:Performed By: #### CMP, URIC #### [facility] [address] [address] [address] Marla VarnerGlobulin (S) [Mass/Vol]3.8 g/dLNormSelect Medical Specialty Hospital - CincinnatiComment on above:Performed By: #### CMP, URIC #### [facility] [address] [address] [address] Marla VarnerGlucose [Mass/Vol]101 mg/sXNodrys74-814Hfg [facility] Comment on above:Performed By: #### CMP, URIC #### [facility] [address] [address] [address] Marla VarnerPotassium [Moles/Vol]4.2 mmol/LNormal3.5-5.1The [facility] Comment on above:Performed By: #### CMP, URIC #### [facility] [address] [address] [address] Marla VarnerProtein [Mass/Vol]7.2 g/dLNormal6.4-8.2The [facility] Comment on above:Performed By: #### CMP, URIC #### [facility] [address] [address] [address] Marla VarnerSodium [Moles/Vol]140 mmol/HYhwttk235-576Rnu [facility] Comment on above:Performed By: #### CMP, URIC #### [facility] [address] [address] [address] Marla VarnerUrea nitrogen [Mass/Vol]11.0 mg/dLNormal7.0-18.0The [facility] HospitalComment on above:Performed By: #### CMP, URIC #### [facility] [address] [address] [address] Marla Vital nitrogen/Creatinine [Mass ratio]15.3 mg/mgNoGreen Cross HospitalComment on above:Performed By: #### CMP, URIC #### [facility] [address] [address] [address] Marla Noel RATE WESTERGRENon 99-31-7519ONE RATE51 mm/hrCritically high <=30The [facility] HospitalComment on above:Performed By: #### SEDR #### [facility] [address] [place] [address] Dr. Marla PattonHocharlene 90-35-9568EKX5.307 uIU/mLNormal0.358-3.740The [facility] HospitalComment on above:Performed By: #### TSH #### [facility] [address] [place] [address] Dr. Marla VarnerURIC ACID SERUMon 08-48-4467Xhocg [Mass/Vol]3.2 mg/dLNormal 2.6-6.0The [facility] HospitalComment on above:Performed By: #### CMP, URIC #### [facility] [address] [place] [address] Dr. Marla VarnerINSULIN FREE AND TOTALon 39-58-2985Gbaq Kndenmr77 uU/mLNormalRegional Medical CenterComment on above:Result Comment: Reference Range: Pubertal Children and Adults (fasting): 0 - 17Performed By: #### INSULT #### [facility] [address] [place] [address] Dr. Marla VarnerTotal Gydtpja56 uU/mLNormalRegional Medical CenterComsheridan community hospital on above: Result Comment: Non-Diabetic: In [...] developed and its performance characteristics determined by [employer] It has not been cleared or approved by the Food and Drug Administration.Performed By: #### INSULT #### [facility] [address] [place] [address] Dr. Marla VarnerCBC AUTO DIFFon 54-76-6619NGBF #0.0 103/ulNormal0.0-0.1[facility] on above:Performed By: #### TSH #### [facility] [address] [address] [address] Marla VarnerBasophils/100 WBC (Bld)0.3 %Normal0.2-2.0The [facility] Comment on above:Performed By: #### TSH #### [facility] [address] [address] [address] Marla Velasquez #0.2 103/ulNormal0.0-0.7The [facility] HospitalComment on above: Performed By: #### TSH #### [facility] [address] [place] [address] Dr. Marla Schultzosinophils/100 WBC (Bld)2.7 %Normal0.9-7.0The [facility] Comment on above:Performed By: #### TSH #### [facility] [address] [place] [address] Dr. Marla Schultzrythrocyte distribution width (RBC) [Ratio]14.8 %Uvchfc17.0-15.0 The [facility] HospitalComment on above:Performed By: #### TSH #### [facility] [address] [place] [address] Dr. Marla VarnerHematocrit (Bld) [Volume fraction]47.6 %Sedvzy99.0-48.0The [facility] HospitalComment on above:Performed By: #### TSH #### [facility] [address] [place] [address] Dr. Marla VarnerHemoglobin (Bld) [Mass/Vol]15.4 g/jKIajxuq21.0-16.0The [facility] HospitalComment on above:Performed By: #### TSH #### [facility] [address] [place] [address] Dr. Marla Quezada #0.03 10e3/ulNormal0.00-0.03The [facility] HospitalComment on above:Performed By: #### TSH #### [facility] [address] [place] [address] Dr. Marla Quezada %0.4 %Normal0.0-0.5The [facility] HospitalComment on above: Performed By: #### TSH #### [facility] [address] [address] [address] Marla Irby #1.6 103/ulNormal1.2-3.8The [facility] HospitalComsher[facility] on above:Performed By: #### TSH #### [facility] [address] [place] [address] Dr. Marla Ibarrahocytes/100 WBC (Bld)21.1 %Xpvyyz48.5-60.0The [facility] HospitalComsheridan [facility] on above:Performed By: #### TSH #### [facility] [address] [place] [address] Dr. Marla Rivas DIFF REQNONormalThe [facility] HospitalComsher[facility] on above: Performed By: #### TSH #### [facility] [address] [place] [address] Dr. Marla Mcgrath (RBC) [Entitic mass]34.2 pgCritically high26.7-34.0The [facility] on above:Performed By: #### TSH #### [facility] [address] [place] [address] Dr. Marla Mcgrath (RBC) [Mass/Vol]32.4 g/lZCtzcif95.9-35.2The [facility] on above:Performed By: #### TSH #### [facility] [address] [place] [address] Dr. Marla Mcgrath (RBC) [Entitic vol]105.8 fLCritically high81.0-99.0The [facility] on above:Performed By: #### TSH #### [facility] [address] [place] [address] Dr. Marla Morales #0.5 103/ulNormal0.3-0.8The [facility] on above:Performed By: #### TSH #### [facility] [address] [place] [address] Dr. Marla Messinaocytes/100 WBC (Bld)7.4 %Normal1.7-12.0The [facility] Comment on above:Performed By: #### TSH #### [facility] [address] [place] [address] Dr. Marla McallisterUT #5.0 103/ulNormal1.4-6.5The [facility] HospitalComment on above:Performed By: #### TSH #### [facility] [address] [place] [address] Dr. Marla Mcallisterutrophils/100 WBC (Bld)68.1 %Aslvod92.0-75.0The [facility] HospitalComment on above:Performed By: #### TSH #### [facility] [address] [place] [address] Dr. Marla Walden mean volume (Bld) [Entitic vol]10.5 fLNormal9.5-13.5The [facility] HospitalComment on above:Performed By: #### TSH #### [facility] [address] [place] [address] Dr. Marla VarnerPLT207 103/tjHprtgt840-483Drt [facility] HospitalComment on above: Performed By: #### TSH #### [facility] [address] [place] [address] Dr. Marla VarnerRBC4.50 106/ulNormal4.20-5.40The [facility] HospitalComment on above:Performed By: #### TSH #### [facility] [address] [place] [address] Dr. Marla VarnerWBC7.3 103/ulNormal4.0-11.0The [facility] HospitalComment on above: Performed By: #### TSH #### [facility] [address] [place] [address] Dr. Marla Love T4on 89-80-4006Okil T4 [Mass/Vol]1.75 ng/dLCritically high 0.76-1.46The [facility] HospitalComment on above:Performed By: #### TSH #### [facility] [address] [place] [address] Dr. Yilan ChangPROF 14(COMP METB)on 79-83-7698Jecjrxm [Mass/Vol]3.7 g/dLNormal 3.4-5.0The [facility] HospitalComment on above:Performed By: #### INSULT #### [facility] [address] [place] [address] Dr. Marla VarnerAlbumin/Globulin [Mass ratio]1.0 {ratio}NormalThe [facility] HospitalComment on above:Performed By: #### INSULT #### [facility] [address] [place] [address] Dr. Marla GarcíaP [Catalytic activity/Vol]99 U/YKmyouk50-135Smg [facility] HospitalComment on above:Performed By: #### INSULT #### [facility] [address] [place] [address] Dr. Marla GarcíaT [Catalytic activity/Vol]25 U/XXvdjyn75-38Ojv [facility] HospitalComment on above:Performed By: #### INSULT #### [facility] [address] [place] [address] Dr. Marla Farraron gap [Moles/Vol]15.7 mmol/LNormalThe [facility] Comment on above:Performed By: #### INSULT #### [facility] [address] [place] [address] Dr. Marla VarnerAST [Catalytic activity/Vol]20 U/DFkpoed50-98Qfw [facility] HospitalComment on above:Performed By: #### INSULT #### [facility] [address] [place] [address] Dr. Marla VarnerBilirubin [Mass/Vol]0.4 mg/dLNormal0.2-1.0The [facility] Comment on above:Performed By: #### INSULT #### [facility] [address] [place] [address] Dr. Marla VarnerCalcium [Mass/Vol]8.9 mg/dLNormal8.5-10.1The [facility] Comment on above:Performed By: #### INSULT #### [facility] [address] [place] [address] Dr. Marla VarnerChloride [Moles/Vol]99 mmol/NIafhco29-217Jfd [facility] Comment on above:Performed By: #### INSULT #### [facility] [address] [place] [address] Dr. Marla VarnerCO2 [Moles/Vol]25.3 mmol/PAectwl41.0-32.0The [facility] Comment on above:Performed By: #### INSULT #### [facility] [address] [place] [address] Dr. Marla VarnerCreatinine [Mass/Vol]0.80 mg/dLNormal0.55-1.02The [facility] HospitalComment on above:Performed By: #### INSULT #### [facility] [address] [place] [address] Dr. Marla SchultzGFR-AF KOSOVAN>60Normal>=60The [facility] HospitalComment on above:Performed By: #### INSULT #### [facility] [address] [place] [address] Dr. Marla SchultzGFR-NON AF KOSOVAN>60Normal>=60The [facility] HospitalComment on above:Performed By: #### INSULT #### [facility] [address] [place] [address] Dr. Marla VarnerGlobulin (S) [Mass/Vol]3.6 g/dLNormalThe [facility] HospitalComment on above:Performed By: #### INSULT #### [facility] [address] [place] [address] Dr. Marla VarnerGlucose [Mass/Vol]113 mg/dLCritically tlko69-894Swv [facility] HospitalComment on above:Performed By: #### INSULT #### [facility] [address] [place] [address] Dr. Marla VarnerPotassium [Moles/Vol]4.0 mmol/LNormal3.5-5.1The [facility] Comment on above:Performed By: #### INSULT #### [facility] [address] [place] [address] Dr. Marla VarnerProtein [Mass/Vol]7.3 g/dLNormal6.4-8.2The [facility] Comment on above:Performed By: #### INSULT #### [facility] [address] [place] [address] Dr. Marla VarnerSodium [Moles/Vol]136 mmol/OSatxue564-984Glz [facility] Comment on above:Performed By: #### INSULT #### [facility] [address] [place] [address] Dr. Marla VarnerUrea nitrogen [Mass/Vol]10.0 mg/dLNormal7.0-18.0The [facility] HospitalComment on above:Performed By: #### INSULT #### [facility] [address] [place] [address] Dr. Marla Vital nitrogen/Creatinine [Mass ratio]12.5 mg/mgNormalThe [facility] HospitalComment on above:Performed By: #### INSULT #### [facility] [address] [place] [address] Dr. Marla Noel RATE WESTERGRENon 86-26-0953WUU RATE34 mm/hrCritically high <=30The [facility] HospitalComment on above:Performed By: #### TSH #### [facility] [address] [place] [address] Dr. Marla Joyce 20-58-6984EGD8.152 uIU/mLCritically low0.358-3.740The [facility] HospitalComment on above:Performed By: #### TSH #### [facility] [address] [place] [address] Dr. Marla VarnerURIC ACID SERUMon 02-43-6583Zfhau [Mass/Vol]3.3 mg/dLNormal 2.6-6.0The [facility] HospitalComment on above:Performed By: #### INSULT #### [facility] [address] [place] [address] Dr. Marla Lowe AUTO DIFFon 22-71-9805IJOY #0.0 103/ulNormal0.0-0.1The [facility] HospitalComment on above:Performed By: #### TSH #### [facility] [address] [place] [address] Dr. Marla VarnerBasophils/100 WBC (Bld)0.1 %Critically low0.2-2.0The [facility] on above:Performed By: #### TSH #### [facility] [address] [place] [address] Dr. Marla Velasquez #0.4 103/ulNormal0.0-0.7The [facility] HospitalComment on above: Performed By: #### TSH #### [facility] [address] [place] [address] Dr. Marla Schultzosinophils/100 WBC (Bld)5.1 %Normal0.9-7.0The [facility] Comment on above:Performed By: #### TSH #### [facility] [address] [place] [address] Dr. Marla Schultzrythrocyte distribution width (RBC) [Ratio]14.5 %Bhvbah08.0-15.0 The [facility] HospitalComment on above:Performed By: #### TSH #### [facility] [address] [place] [address] Dr. Marla VarnerHematocrit (Bld) [Volume fraction]45.7 %Ixrmmm69.0-48.0The [facility] Hospitalment on above:Performed By: #### TSH #### [facility] [address] [place] [address] Dr. Marla VarnerHemoglobin (Bld) [Mass/Vol]14.6 g/kLSizvhq19.0-16.0The [facility] Hospitalment on above:Performed By: #### TSH #### [facility] [address] [place] [address] Dr. Marla Quezada #0.03 10e3/ulNormal0.00-0.03The [facility] HospitalComment on above:Performed By: #### TSH #### [facility] [address] [place] [address] Dr. Marla Quezada %0.4 %Normal0.0-0.5The [facility] HospitalComment on above: Performed By: #### TSH #### [facility] [address] [address] [address] Marla Irby #0.9 103/ulCritically low1.2-3.8The [facility] Comment on above:Performed By: #### TSH #### [facility] [address] [address] [address] Marla Ibarrahocytes/100 WBC (Bld)11.3 %Critically low20.5-60.0The [facility] HospitalComment on above:Performed By: #### TSH #### [facility] [address] [address] [address] Marla Rivas DIFF REQNONormalThe [facility] HospitalComment on above: Performed By: #### TSH #### [facility] [address] [place] [address] Dr. Marla Mcgrath (RBC) [Entitic mass]33.4 uhZsydyk86.7-34.0The [facility] HospitalComment on above:Performed By: #### TSH #### [facility] [address] [place] [address] Dr. Marla Mcgrath (RBC) [Mass/Vol]31.9 g/dIRlqfqq84.9-35.2The [facility] HospitalComment on above:Performed By: #### TSH #### [facility] [address] [place] [address] Dr. Marla Mcgrath (RBC) [Entitic vol]104.6 fLCritically high81.0-99.0The [facility] HospitalComment on above:Performed By: #### TSH #### [facility] [address] [address] [address] Marla Morales #0.3 103/ulNormal0.3-0.8The [facility] HospitalComment on above:Performed By: #### TSH #### [facility] [address] [place] [address] Dr. Marla Messinaocytes/100 WBC (Bld)3.9 %Normal1.7-12.0The [facility] Comment on above:Performed By: #### TSH #### [facility] [address] [address] [address] Marla Dave #6.1 103/ulNormal1.4-6.5The [facility] HospitalComment on above:Performed By: #### TSH #### [facility] [address] [place] [address] Dr. Marla Mcallisterutrophils/100 WBC (Bld)79.2 %Critically high43.0-75.0The [facility] HospitalComment on above:Performed By: #### TSH #### [facility] [address] [place] [address] Dr. Marla VarnerPlatelet mean volume (Bld) [Entitic vol]10.4 fLNormal9.5-13.5The [facility] HospitalComment on above:Performed By: #### TSH #### [facility] [address] [place] [address] Dr. Marla VarnerPLT195 103/ogJjtgss522-175Hnw [facility] HospitalComment on above: Performed By: #### TSH #### [facility] [address] [place] [address] Dr. Marla VarnerRBC4.37 106/ulNormal4.20-5.40The [facility] Hospitalment on above:Performed By: #### TSH #### [facility] [address] [place] [address] Dr. Marla VarnerWBC7.7 103/ulNormal4.0-11.0The [facility] HospitalComment on above: Performed By: #### TSH #### [facility] [address] [place] [address] Dr. Marla VarnerPROF 14(COMP METB)on 09-17-6161Kxihtlj [Mass/Vol]3.3 g/dL Critically low3.4-5.0The [facility] HospitalComment on above:Performed By: #### URIC, CMP #### [facility] [address] [place] [address] Dr. Yilan ChangAlbumin/Globulin [Mass ratio]0.8 {ratio}NormalThe [facility] HospitalComment on above:Performed By: #### URIC, CMP #### [facility] [address] [place] [address] Dr. Marla Bynum [Catalytic activity/Vol]97 U/YLhzusb72-417Ghc [facility] HospitalComment on above:Performed By: #### URIC, CMP #### [facility] [address] [place] [address] Dr. Marla Altamirano [Catalytic activity/Vol]26 U/YEilatt02-19Cge [facility] HospitalComment on above:Performed By: #### URIC, CMP #### [facility] [address] [place] [address] Dr. Marla Rowell gap [Moles/Vol]18.0 mmol/LNormalThe [facility] Comment on above:Performed By: #### URIC, CMP #### [facility] [address] [place] [address] Dr. Marla Reyes [Catalytic activity/Vol]17 U/LRjvmzm74-41Zsz [facility] Hospitalment on above:Performed By: #### URIC, CMP #### [facility] [address] [place] [address] Dr. Marla VarnerBilirubin [Mass/Vol]0.5 mg/dLNormal0.2-1.0The [facility] Comment on above:Performed By: #### URIC, CMP #### [facility] [address] [place] [address] Dr. Marla VarnerCalcium [Mass/Vol]8.8 mg/dLNormal8.5-10.1[facility] Comment on above:Performed By: #### URIC, CMP #### [facility] [address] [place] [address] Dr. Marla VarnerChloride [Moles/Vol]100 mmol/PVjegco16-394Zoq [facility] Comment on above:Performed By: #### URIC, CMP #### [facility] [address] [place] [address] Dr. Marla VarnerCO2 [Moles/Vol]25.3 mmol/FNagdoy93.0-32.0The [facility] Comment on above:Performed By: #### URIC, CMP #### [facility] [address] [place] [address] Dr. Marla VarnerCreatinine [Mass/Vol]0.95 mg/dLNormal0.55-1.02The [facility] HospitalComment on above:Performed By: #### URIC, CMP #### [facility] [address] [address] [address] Marla SchultzGFR-AF KOSOVAN>60Normal>=60The [facility] HospitalComment on above:Performed By: #### URIC, CMP #### [facility] [address] [place] [address] Dr. Marla SchultzGFR-NON AF AHYQBHWO37 mL/min/1.38g3Ottbrvluvs low>=60The [facility] HospitalComment on above:Performed By: #### URIC, CMP #### [facility] [address] [place] [address] Dr. Marla VarnerGlobulin (S) [Mass/Vol]3.9 g/dLNormalThe [facility] HospitalComment on above:Performed By: #### URIC, CMP #### [facility] [address] [place] [address] Dr. Marla VarnerGlucose [Mass/Vol]253 mg/dLCritically wqlo31-383Nqq [facility] HospitalComment on above:Performed By: #### URIC, CMP #### [facility] [address] [place] [address] Dr. Marla VarnerPotassium [Moles/Vol]4.3 mmol/LNormal3.5-5.1The [facility] Comment on above:Performed By: #### URIC, CMP #### [facility] [address] [place] [address] Dr. Marla VarnerProtein [Mass/Vol]7.2 g/dLNormal6.4-8.2The [facility] Comment on above:Performed By: #### URIC, CMP #### [facility] [address] [place] [address] Dr. Marla Dowdium [Moles/Vol]139 mmol/QFwloao948-797Lnd [facility] Comment on above:Performed By: #### URIC, CMP #### [facility] [address] [place] [address] Dr. Marla Vital nitrogen [Mass/Vol]13.0 mg/dLNormal7.0-18.0The [facility] HospitalComment on above:Performed By: #### URIC, CMP #### [facility] [address] [place] [address] Dr. Marla Vital nitrogen/Creatinine [Mass ratio]13.6 mg/mgNormalThe [facility] HospitalComment on above:Performed By: #### URIC, CMP #### [facility] [address] [place] [address] Dr. Marla Noel RATE WESTERGRENon 54-90-2975TXP RATE35 mm/hrCritically high <=30The [facility] HospitalComment on above:Performed By: #### TSH #### [facility] [address] [place] [address] Dr. Marla Leavitt ACID SERUMon 21-83-4023Osgkq [Mass/Vol]3.6 mg/dLNormal 2.6-6.0The [facility] HospitalComment on above:Performed By: #### URIC, CMP #### [facility] [address] [place] [address] Dr. Marla VarnerXR DEXA BONE DENSITYon 21-54-7610BI DEXA BONE DENSITYEXAMINATION: XR DEXA BONE DENSITY, [...] Electronically authenticated by: KALEIGH SUTHERLAND Date: 2022-01-19 11:23[facility] CampusCNOVSPon 02-80-7364USUJERLjuao (SP) Office (GYNOSA) --------EUNICE CASTILLO ([id number]) 1950 FDate Time Provider Department10/21/18 10:40 AM [...] this office note were sent to:[place] [address]?CC:Yimi Montemayor DO (PCP)Referring Provider: BLAINE THOMPSON [[id number]]Allergies As of Date: 10/21/2018 Noted Allergy ReactionPENICILLINS [...] (VIT B-12) 1,0* Inject 1,000 mcg intramuscula* [id number] MG CAPSULE Take 100 mg by mouth [...] More...Encounter Status:Closed by BLAINE THOMPSON MD on 10/23/18NoPrem[facility] Northon 37-73-3520Qnjyyya mass conc HNO ID: [id number]: Blaine Maldonadoervice: (none)Author Type: PhysicianType: Progress NotesFiled: [...] this office note were sent to:[place] [address]?CC:Yimi Montemayor DO (PCP)NormalHighland District HospitalCNOVon 84-40-1937CFOJBkqmbc Visit (GYNOSA) --------EUNICE CASTILLO ([id number]) 1950 FDate Time Provider Department04/15/18 8:00 AM [...] I advised her to follow with her electroencephalogram technologist f or routine health and gynmaintenance exams3. I will see her in 6 monthsBlaine Thompson MD, MPH25 min spent with the patient with >50% face to face counselingA letter and a copy of this office note were sent to:[place] [address]?CC:Yimi Montemayor DO (PCP)Referring Provider: BLAINE THOMPSON [[id number]]Allergies As of Date: 04/15/2018 Noted Allergy ReactionPENICILLINS [...] More... Status:Closed by BLAINE THOMPSON MD on 04/15/18[facility] 62-14-7752Rjbjlwe mass concHNO ID: [id number]: Blaine Maldonadoervice: (none)Author Type: PhysicianType: Progress NotesFiled: [...] I advised her to follow with her electroencephalogram technologist for routine health andgyn maintenance exams3. I will see her in 6 monthsBlaine Thompson MD, MPH25 min spent with the patient with >50% face to face counselingA letter and a copy of this office note were sent to:[place] [address]?CC:Yimi Montemayor DO (PCP)NormalHighland District Hospital Vital Signs Date TimeVital SignValuePerforming NhpairwlkFtwimhqx01-00-8021 10:59-0400Body essnyo513.1 Donna LARA Work Phone: [facility]09-29-2025 10:59-0400 Body mass index (BMI) [Ratio]40.4 kg/m2Lisa Milton LARA Work Phone: [facility]09-29-2025 10:59-0400 Body kylhpyirvek46.7 [degF]Brunilda Aichholz TELESCOPE REPAIRER-C Work Phone: [phone] [place], [place] 7110309-29-2025 10:59-0400 Body tbfuxy838.27 kgLisa Aichholz TELESCOPE REPAIRER-C Work Phone: [phone] [place], [place] 7110309-29-2025 10:59-0400 Diastolic blood gamyhsvp04 mm[Hg]Brunilda Aichholz TELESCOPE REPAIRER-C Work Phone: [phone]09-29-2025 10:59-0400 Heart rate63 /minLisa Aichholz TELESCOPE REPAIRER-C Work Phone: [phone]09-29-2025 10:59-0400 Respiratory rate18 /minLisa Aichholz TELESCOPE REPAIRER-C Work Phone: [phone] [place], [place] 7110309-29-2025 10:59-0400 SaO2% (BldA) [Mass fraction]97 %Brunilda Aichholz TELESCOPE REPAIRER-C Work Phone: [phone] [place], [place] 7110309-29-2025 10:59-0400 Systolic blood uthbtrbg503 mm[Hg]Brunilda Aichholz TELESCOPE REPAIRER-C Work Phone: [phone] [place], [place] 7110303-05-2025 10:30-0500 Body .6 cmLisa Aichholz TELESCOPE REPAIRER Work Phone: [facility] HospitalOtgajoulwo83-86-9982 10:30-0500Body mass index (BMI) [Ratio]41.95 kg/m2Lisa Aichholz TELESCOPE REPAIRER Work Phone: [facility] HospitalJiedgeknnh37-02-7323 10:30-0500Body temperature 98.29 [degF]Brunilda Aichholz TELESCOPE REPAIRER Work Phone: [facility] HospitalNwbxafsemk38-07-9713 10:30-0500Body asawes528.86 kgLisa Aichholz TELESCOPE REPAIRER Work Phone: [facility] HospitalVaxaglfjub71-56-3744 10:30-0500Diastolic blood qgteyfby23 mm[Hg]Brunilda Deonholz TELESCOPE REPAIRER Work Phone: [facility] HospitalZgpsialzyl28-33-9921 10:30-0500Heart rate74 /min Brunilda Deonholz TELESCOPE REPAIRER Work Phone: [facility] HospitalTwljjmnhdt09-15-2180 10:30-0500Respiratory rate22 /minLisa Deonholz TELESCOPE REPAIRER Work Phone: [facility] HospitalHzozkxlfow87-05-7576 10:30-9693OvN5% (BldA) [Mass fraction]95 %Brunilda Deonholz TELESCOPE REPAIRER Work Phone: [facility] HospitalOicaympmia49-83-2504 10:30-0500Systolic blood lhlivijf949 mm[Hg]Brunilda Deonholz TELESCOPE REPAIRER Work Phone: [facility] HospitalTqlavsgkjc12-26-3122 09:17-0400Body mass index (BMI) [Ratio]41.76 kg/m2Lianasa Deonholz TELESCOPE REPAIRER Work Phone: [facility] HospitalUwjjorbbhf49-28-3092 09:17-0400Body temperature 97.3 [degF]Brunilda Deonholz TELESCOPE REPAIRER Work Phone: [facility] HospitalZglfhefvel01-21-5702 09:17-0400Body ztfehx933.36 kgLianasa Deonholz TELESCOPE REPAIRER Work Phone: [facility] HospitalPbmrdyxaif29-31-2603 09:17-0400Diastolic blood mm[Hg]Brunilda Deonholz TELESCOPE REPAIRER Work Phone: [address] [address]Akcwtxgtaa98-73-3151 09:17-0400Heart rate79 /min Brunilda Ramseyhholz TELESCOPE REPAIRER Work Phone: [address] [address]Jwynowawyz34-64-3983 09:17-8982EeL4% (BldA) [Mass fraction]94 %Brunilda Ramseyhholz TELESCOPE REPAIRER Work Phone: [address] [address]Acdadybllx41-74-8802 09:17-0400Systolic blood jemrabem552 mm[Hg]Brunilda Milton TELESCOPE REPAIRER Work Phone: [facility] Encounters Encounter DateEncounter TypeCare ProviderFacilityStart: 07-16-2025 End: 42-13-7092yncqyhujmrXtda J Aichholz TELESCOPE REPAIRER-C Work Phone: [facility] Work Phone: Start: 07-16-2025 End: 49-61-3868Edqnwhk encounter procedureBrunilda Rose TELESCOPE REPAIRER-C-FPG [facility] Work Phone: Start: 29-90-6130Aldygeg encounter procedureBrunilda Rose TELESCOPE REPAIRER-C Work Phone: [facility] Hospitaltart: 01-23-2025 End: 02-06-1330Hagccktgw Result EncounterGeneric External Data ProviderNOMS External Department UnsolicitedStart: 01-23-2025 End: 58-51-1363Wihvhjejo Result EncounterGeneric External Data ProviderNOMS External Department UnsolicitedStart: 12-20-2024 End: 25-02-2044Blqadh flowsMargot Rose TELESCOPE REPAIRER Work Phone: n[facility] CW FMStart: 12-20-2024 End: 73-21-0727Wuktmn flowsMargot Rose TELESCOPE REPAIRER Work Phone: [facility] FMStart: 12-20-2024 End: 49-53-0028Lndvarg encounter procedureLiana Milton TELESCOPE REPAIRER Work Phone: [facility] FMComment on above:Encounter for subsequent annual wellness [...] Cigarette nicotine dependence without complicationStart: 12-20-2024 End: 35-19-1412tcrcqjysdoFTUN KINZAot AvailableStart: 10-16-2024 End: 59-38-1156Qzhrhgjbr Result EncounterGeneric External Data ProviderNOMS External Department UnsolicitedStart: 10-16-2024 End: 12-79-8942Zatsmkelb Result EncounterGeneric External Data ProviderNOMS External Department UnsolicitedStart: 06-22-2024 End: 13-44-4268Sbswelphl Result EncounterLisa Chavarriating TELESCOPE REPAIRER Work Phone: [facility] External Department UnsolicitedStart: 06-22-2024 End: 79-35-6568Cdjkjanfe Result EncounterLisa Chavarriafrankiez TELESCOPE REPAIRER Work Phone: [facility] External Department UnsolicitedStart: 06-12-2024 End: 21-96-2636Jzvauo flowsheetBrunilda Chavarriaholz TELESCOPE REPAIRER Work Phone: noms [facility] FMStart: 06-12-2024 End: 55-25-9006Eoidvv flowsheetBrunilda Chavarriaholz TELESCOPE REPAIRER Work Phone: noms CW FMStart: 06-12-2024 End: 98-21-6037Zgjsvk outpatient visit 25 minutesLisa Chavarriaholz TELESCOPE REPAIRER Work Phone: noms [facility] FMComment on above:Primary hypertension (CMS/HCC) (Primary Dx); Morbid (severe) obesity due to excess calories (CMS/HCC); Body mass index (BMI) 40.0-44.9, adult (CMS/HCC); Malignant neoplasm of vagina (CMS/HCC); Gastroesophageal reflux disease without esophagitis; Lower extremity edema; Hypothyroidism, unspecified type (CMS/HCC); Tobacco user; Hyperglycemia; Polyneuropathy; Rheumatoid arthritis with positive rheumatoid factor, involving unspecified site ([facility]); Other fatigueStart: 06-12-2024 End: 15-83-9357ozcztdovgmKGMW JUAREZZNot AvailableStart: 20-31-6734Bswsuls encounter procedureLisa Rose TELESCOPE REPAIRER Work Phone: [facility] HealthcareStart: 63-10-3372Dwautrgmj encounter [facility]ra [facility] - Medical OncologyStart: 01-12-2023 End: 06-71-0384azxnneipbsQRR BRUNILDA AICHHOLZFacility:D7Bnnot: 10-13-2022 End: 15-81-7361vpqhlfoslcBDC BRUNILDA RAMSEYHHOLZFacility:I9Hilod: 07-21-2022 End: 12-52-1008figddptxtfUBJ BRUNILDA AICHHOLZFacility:H7Vlzae: 04-21-2022 End: 64-32-8182fiwcjhkromLN DOCTOR MISCFacility:Y0Mxnwh: 01-19-2022 End: 64-06-3190cgrppexxqoSBI BRUNILDA AICHHOLZFacility:W5Rcqph: 10-21-2018 End: 71-33-1598Pxjldtl encounter procedureHAIDER [facility] Start: 04-15-2018 End: 85-88-9609Gtycwhz encounter procedureHAIVan [facility] Procedures DateProcedureProcedure DetailPerforming ClinicianStart: 23-59-0190GPP CBC WITH AUTO DIFFGeneric External Data ProviderStart: 16-75-1890ZfztegsymcaNosn Aichholz TELESCOPE REPAIRER Work Phone: Start: 48-09-0758TUJ CBC WITH AUTO DIFFGeneric External Data ProviderStart: 26-17-3075YSP HEMOGLOBIN Y6SKdtp Milton TELESCOPE REPAIRER Work Phone: Start: 30-92-0877SbicumhlvtcYqeb Aichholz TELESCOPE REPAIRER Work Phone: Plan of Treatment DateCare ActivityDetailAuthorStart: 03-05-2026Medicare Annual Wellness (AWV) Medicare Annual Wellness (AWV)[facility] HealthcareStart: 18-96-5842Whaehiqxi for malignant neoplasm of breastMammogramNOMS HealthcareStart: 36-81-9187Pwnyq screening for proteinDiabetes: Urine Protein ScreeningNOMS HealthcareComment on above:Postponed from 1969 (Other Medical Reasons)Start: 06-25-2025 End: 27-20-8309Cisgsoq encounter urjzjwjql79/08/2025 9:20 AM EDT Office Visit [facility] [address] [place] [address] Brunilda Rose NP [address] [place] [address] [facility] FMStart: 60-53-2773Aohjlyxjm vaccinationInfluenza Vaccine (Season Ended)[facility] HealthcareStart: 60-46-5818Cucjyzmid vaccination Influenza Vaccine (#1)[facility] HealthcareComment on above:Postponed from 06/18/2024 (Patient Refused)Start: 12-20-2024 End: 65-38-5467Pnapckh encounter pelpelgby43/05/2025 10:30 AM EST Office Visit [facility] [address] [place] [address] Brunilda Rose, RHEA [address] [place] [address] Polyneuropathy (Primary Dx); Morbid (severe) obesity due [...] edema; Age-related osteoporosis without current pathological fracture ([facility]/HCC); Hypothyroidism, unspecified type ([facility]/HCC); Encounter for subsequent annual wellness visit (AWV) in Medicare patient; Chronic gout without tophus, unspecified cause, unspecified site; Hyperglycemia; Cigarette nicotine dependence without complicationStart: 02-26-2025Medicare Annual Wellness (AWV)Medicare Annual Wellness (AWV)[facility] HealthcareStart: 72-40-7333Tljeshucq for malignant neoplasm of colonColorectal Cancer Screening N[facility] HealthcareComment on above:Postponed from 1950 (Patient Refused) Start: 12-12-2024 End: 04-97-8949Ywwgvsc encounter pklrroypb70/25/2025 10:00 AM EST Office Visit [facility] [address] [place] [address] Brunilda Rose NP [address] [place] [address] [facility] FMStart: 57-76-2461Pkzleyvo screeningDiabetes: Retinopathy ScreeningNOMS HealthcareComment on above:Postponed from 1960 (Other Medical Reasons)Start: 53-87-7833Yybjn screening for proteinDiabetes: Urine Protein ScreeningNOMS HealthcareComment on above:Postponed from 1969 (Other Patient Reasons)Start: 16-24-6157Muhrzdiub vaccinationInfluenza Vaccine (#1)[facility] HealthcareStart: 31-34-3839Nfznesxzh for malignant neoplasm of breast MammogramNOMS HealthcareStart: 06-12-2024 End: 60-15-5905Rpajnrr encounter nbjsmovxw81/26/2024 9:20 AM EDT Office Visit [facility] [address] [place] [address] Brunilda Rose NP [address] [place] [address] Morbid (severe) obesity due to excess calories (CMS/HCC); Body mass index (BMI) 40.0-44.9, adult (CMS/HCC); Malignant neoplasm of vagina (CMS/HCC)[facility] C[facility] FMComment on above:Morbid (severe) obesity due to excess calories (CMS/HCC); Body mass index (BMI) 40.0-44.9, adult (CMS/HCC); Malignant neoplasm of vagina (CMS/HCC)Start: 46-53-1858Muzrf BMI ScreeningAdult BMI ScreeningProJ.W. Ruby Memorial Hospitaltart: 13-25-5503SRURC-19 Vaccine ( season)COVID-19 Vaccine ( season)[facility] [place]: 01-07-1193Tytopnsju vaccinationInfluenza VaccineSouthern [facility] Medical Center SystemStart: 30-73-7273Vjsc Risk ScreeningFall Risk ScreeningLifeBrite Community Hospital of [place]: 42-83-1953Wnpevgezvtrxvt of varicella zoster vaccineZoster (Shingles) Vaccine (1 of 2)[facility]: 23-63-4877RSeW,Tdap and Td Vaccines (1 - Tdap)DTaP,Tdap and Td Vaccines (1 - Tdap)[facility] SystemStart: 56-48-2179Wkcga screening for proteinDiabetes: Urine Protein ScreeningBRIGHAM CITY COMM[facility] HealthcareStart: 40-71-6757Amrls BMI Follow Up PlanAdult BMI Follow Up Plan [facility]: 03-10-0232Mjnjhpclbk ScreeningDepression Screening [facility]: 99-89-3570Yedoekl ScreeningTobacco Screening [facility]: 66-48-5766Ufuyrznb screeningDiabetes: Retinopathy ScreeningBRIGHAM CITY COMMUNITY [facility]PITAL HealthcareStart: 66-58-5220Opeqhqmcar A1c measurementDiabetes: Hemoglobin Y9BTSFYSaint Luke's East HospitalStart: 1950Medicare Annual Wellness Visit Medicare Annual Wellness VisitLifeBrite Community Hospital of [place]: 17-18-4485Xtbjxmwnc for malignant neoplasm of colonBRIGHAM CITY COMMUNITY [facility] Healthcare Immunizations Immunization DateImmunizationNotesCare PyvxqkbiDtsxuqer31-22-1939Nxmzvzrvo, Seasonal, Quadrivalent, AdjuvantedLisa Aichholz TELESCOPE REPAIRER Work Phone: [facility] HospitalUnehwfeddw73-32-2498HGTI-JEP-3 (COVID-19) vaccine, mRNA, spike protein, LNP, PF, india-sucrose, 30 mcg/0.3 mLLisa Aichholz TELESCOPE REPAIRER Work Phone: [phone] [place], [place] [address]Thtcashpdd43-69-3077zjcpsbqps virus vaccine, unspecified formulationLisa Aichholz TELESCOPE REPAIRER Work Phone: [phone] [place], [place] [address]Xiipnqoqkn08-22-2060Dbifnvlwo, Seasonal, Quadrivalent, AdjuvantedLisa Aichholz TELESCOPE REPAIRER Work Phone: [phone] [place], [place] [address]Fibtkkddat20-38-8113GNKS-UAG-0 (COVID-19) vaccine, mRNA, spike protein, LNP, bivalent, preservative free, 30 mcg/0.3 mL dose, india-sucrose formulationLisa Aichholz TELESCOPE REPAIRER Work Phone: [phone] [place], [place] [address]Jqkyhjhzss33-10-2531lncenjrji virus vaccine, unspecified formulationPaula [facility]11-24-2021Pfizer Purple Cap SARS-CoV-2 VaccinationLisa Aichholz TELESCOPE REPAIRER Work Phone: [phone] [place], [place] [address]Wzzroihenf00-47-3616uwcullqsqnlx polysaccharide vaccine, 23 valentLisa Aichholz TELESCOPE REPAIRER Work Phone: [phone] [place], [place] [address]Xlqjimuqsb04-51-6652Axsxicger, Seasonal, Quadrivalent, AdjuvantedLisa Aichholz TELESCOPE REPAIRER Work Phone: [phone] [place], [place] [address]Tiodtpkmol60-80-5260Jxdsye Purple Cap SARS-CoV-2 VaccinationLisa Aichholz TELESCOPE REPAIRER Work Phone: [phone] [place], [place] [address]Cijntczxld68-59-3223Sjdpor Purple Cap SARS-CoV-2 VaccinationLisa Aichholz TELESCOPE REPAIRER Work Phone: noFreeman Neosho HospitalBgrgdpylww28-58-2153Hhukaxkba, Seasonal, Quadrivalent, AdjuvantedLisa Deonholz TELESCOPE REPAIRER Work Phone: noFreeman Neosho HospitalWjsfffukyb04-62-0310mssfhdcxljdd conjugate vaccine, 13 valentLisa Deonholz TELESCOPE REPAIRER Work Phone: [facility] Healthcare Payers DatePayer CategoryPayerPolicy [id number] Health InsuranceMEDICAL MUTUAL Member Subscriber Plan / Payer (Effective 2021-Present) Name: Eunice Castillo Rick Relation to Subscriber: Self Name: Eunice Castillo Rick ID: Not on file Type: Not on file Address: [place] [id number] 2015Medicare [id number] [id number] [id number] 1960 [id number] 2.840.1.426135.3.579.2.593 [id number] 2.16.840.1.927573.3.57[id number] 2.16.840.1.109773.3.57[id number] 2.0.1.031706.3.57[id number] 2.16.840.1.179823.3.57[id number] 2..840.1.188335.3.57[id number] 2..840.1.957015.3.57[id number] 2.0.1.036633.3.57[id number] 2..840.1.757157.3.579.2.1259Private Health InsuranceRobert H. Ballard Rehabilitation [id number] Social History DateTypeDetailFacilityStart: 10-31-2019 End: 51-36-7785Xxkryiy smoking status NHISSmokes tobacco dailyGalion Community HospitalHistory of tobacco useCigarette SmokerSouthern Ohio Medical Center SystemStart: 10-31-2019 End: 62-20-7475Cantxlyizd smoked current (pack per day) - Yurhluqa5NQMU HealthcareStart: 07-64-3185Sknnacf use and exposureSmokeless tobacco non-user [facility] Shellcatch SystemStart: 11-13-2020 End: 91-47-9164Jvfddag intakeLifetime non-drinker (finding)[facility] SystemStart: 08-16-2019 End: 03-93-2616Icuvnfy Use Disorder Identification Test - Consumption [AUDIT-C] [facility] HealthcareFrequency of Alcohol ConsumptionNeParkwood Hospital System Start: 74-14-9479Mgb Assigned At BirthNot on fileGalion Community HospitalWithin the last year, have you been afraid of your partner or ex-partner?NoNOMS HealthcareDo you belong to any clubs or organizations such as orthodoxy groups, unions, fraternal or athletic groups, or [...] got money to buy more.Never trueNOMS HealthcareStart: 69-88-2041Irzoseu Commentcaffine: 4 cups dailyNOMS HealthcareSexFemale (finding) [facility] Hospitaltart: 90-81-4999Eqa Assigned At [facility] History of Present illness Narrative 12-20-2024 Note Date & OxflGdylWrphdmvi98-30-1167 History of Present illness Narrative* IBIS RAYA [...] Any Hospitalizations in the last year:none Specialist:Rheumatology, MERCHANDISE BUYER HCPOA/Living Will:yes Concerns: Thyroid Problem Presents for [...] compliance problems. There is no history of CAD/[place], heart failure or PVD. Identifiable causesof hypertension [...] 12/13/2023 Heel spur, left 12/13/2023 HTN (hypertension) ([facility]) 12/13/2023 Hyperglycemia 12/13/2023 Hypothyroid ([facility]) 12/13/2023 Lower extremity edema 12/13/2023 Morbid obesity with body mass index (BMI) of 40.0 to 49.9 ([facility]) 12/13/2023 Non-compliant patient 12/13/2023 Osteoarthritis 12/13/2023 Osteoporosis ([facility]) 12/13/2023 Polyneuropathy 12/13/2023 RA (rheumatoid arthritis) ([facility]) 12/13/2023 Tobacco user 12/13/2023 Vaginal cancer ([facility]) 12/13/2023 Vitamin B12 deficiency 12/13/2023 Past Surgical History: Procedure Laterality Date HYSTERECTOMY RADICAL VULVECTOMY 10/29/2016 modified radical posterior vulvectomy: 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 OBJECTIVE: [...] Visit Body mass index (BMI) 40.0-44.9, adult ([facility]) Chronic idiopathic gout of multiple [...] gabapentin (Neurontin) 300 MG capsule HTN (hypertension) ([facility]) Please check blood pressure daily and record DASH diet Limit caffeine Take medication as directed Contact office if chest pain, pressure, dizziness, shortness of breath, swelling legs Recommend slow position changes Current meds: lisinopril, and lasix Relevant Medications lisinopril 10 MG tablet Malignant neoplasm of vagina ([facility]) Osteoporosis ([facility]) DEXA was 05/10, -3.0, Current med fosamax Lower extremity edema Lasix Limit sodium, elevate feet as much as possible Check labs yearly and prn Relevant Medications furosemide (Lasix) 40 MG tablet potassium chloride CR (Klor-Con) 10 MEQ ER tablet Morbid (severe) obesity due to excess calories ([facility]) Discussed with patient their BMI (actual, verses recommended). We have also discussed lifestyle modifications: attempts to perform physical activity as chronic conditions allow, also to monitor dietary intake: increasing protein/fruits/veggies and lowering carb intake (unless contraindicated). Limit sodas, juices, and sugary drinks. Hypothyroid ([facility]) Current med on levothyroxine Check labs yearly, prn dose changes, changes in symptoms Relevant Medications levothyroxine (Synthroid, Levoxyl) 150 MCG tablet Rheumatoid arthritis with rheumatoid factor, unspecified ([facility]) Continue with dr cardenas Current [...] of the risks of continued smoking: stroke, [place], all forms of cancer, lung disease, and [...] of the risks of continued smoking: stroke, [place], all forms of cancer, lung disease, and [...] Problem(s): Rheumatoid arthritis with rheumatoid factor, unspecified ([facility]) Continue with dr cardenas Current [...] Follow up yearly and prn * Brunilda Roes NP - 12/20/2024 6:48 AM ESTAssociated Problem(s): [...] intraepithelial neoplasia III) 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 w MERCHANDISE BUYER/onc * Brunilda Rose NP - 12/20/2024 6:45 [...] as well OARRS reviewed documented in this encounterNOPR Healthcare History of Present illness Narrative 06-12-2024 Note Date & KcmvAczjVhqenkrc02-92-7300 History of Present illness Narrative* Brunilda Rose [...] 06/12/2024 11:21 AM EDTAssociated Problem(s): HTN (hypertension) ([facility]) Stable at this time No med dose [...] 12/13/2023 Heel spur, left 12/13/2023 HTN (hypertension) ([facility]) 12/13/2023 Hyperglycemia 12/13/2023 Hypothyroid ([facility]) 12/13/2023 Lower extremity edema 12/13/2023 Morbid obesity with body mass index (BMI) of 40.0 to 49.9 ([facility]) 12/13/2023 Non-compliant patient 12/13/2023 Osteoarthritis 12/13/2023 Osteoporosis ([facility]) 12/13/2023 Polyneuropathy 12/13/2023 RA (rheumatoid arthritis) ([facility]) 12/13/2023 Tobacco user 12/13/2023 Vaginal cancer ([facility]) 12/13/2023 Vitamin B12 deficiency 12/13/2023 Past Surgical [...] Visit Body mass index (BMI) 40.0-44.9, adult ([facility]) Gastroesophageal reflux disease without esophagitis Polyneuropathy Would like to increase gabapentin to 300mg BID Relevant Medications gabapentin (Neurontin) 300 MG capsule HTN (hypertension) ([facility]) - Primary Stable at this time No med dose change Relevant Medications lisinopril 10 MG tablet Malignant neoplasm of vagina (CMS/HCC) 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 Lower extremity edema Relevant Medications potassium chloride CR (Klor-Con) 10 MEQ ER tablet furosemide (Lasix) 40 MG tablet Morbid (severe) obesity due to excess calories (CMS/HCC) Hypothyroid (CMS/HCC) Fatigue, takes thyroid meds daily as directed Relevant Medications levothyroxine (Synthroid, Levoxyl) 150 MCG tablet Tobacco user RA (rheumatoid arthritis) ([facility]) Relevant Medications folic acid (Folvite) 1 MG [...] Malignant neoplasm of vagina (CMS/HCC) 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 documented in this encounterBRIGHAM CITY COMM[facility] Healthcare Note 10-13-2023 Note Date & QcnyZlyhMxfcvpwn57-80-6196 Miscellaneous Notes* Telephone Encounter - Zohra Oates - 10/13/2023 2:33 PM EST CALLED TO CANCEL FOLLOW UP WITH ANTONIETTA SHE DOES NOT WANT TO RESCHEDULE AT THIS TIME documented in this encounterSouthern [facility] Medical Center System Telephone encounter Note 10-13-2023 Note Date & JoydLnxwRkdmwocv54-97-7685 Telephone encounter Note* Telephone Encounter - Zohra Oates - 10/13/2023 2:33 PM EST CALLED TO CANCEL FOLLOW UP WITH ANTONIETTA SHE DOES NOT WANT TO RESCHEDULE AT THIS TIME [facility] Evaluation note Note Date & TypeNoteFacilityEvaluation [...] (CMS/HCC) Other fatigue documented in this encounter [facility] Healthcare Evaluation note Note Date & TypeNoteFacilityEvaluation [...] with positive rheumatoid factor, involving unspecified site ([facility]) Allergic rhinitis, unspecified seasonality, unspecified trigger Gastroesophageal reflux disease without esophagitis Esophageal reflux Primary hypertension ([facility])- Primary Unspecified essential hypertension Morbid (severe) obesity due to excess calories ([facility]) Body mass index (BMI) 40.0-44.9, adult ([facility]) Malignant neoplasm of vagina ([facility]) Malignant neoplasm of vagina Gastroesophageal reflux disease without esophagitis Esophageal reflux Lower extremity edema Edema Hypothyroidism, unspecified type ([facility]) Tobacco user Tobacco use disorder Hyperglycemia Other abnormal glucose Polyneuropathy Unspecified hereditary and idiopathic peripheral neuropathy Rheumatoid arthritis with positive rheumatoid factor, involving unspecified site ([facility]) Other fatigue Encounter for subsequent annual wellness visit (AWV) in Medicare patient- Primary Morbid (severe) obesity due to excess calories ([facility]) Body mass index (BMI) 40.0-44.9, adult ([facility]) Rheumatoid arthritis with rheumatoid factor, unspecified ([facility]) Malignant neoplasm of vagina ([facility]) Malignant neoplasm of vagina Polyneuropathy Unspecified hereditary and idiopathic peripheral neuropathy Primary hypertension ([facility]) Unspecified essential hypertension Gastroesophageal reflux disease without esophagitis Esophageal reflux Idiopathic chronic gout of multiple sites without tophus Lower extremity edema Edema Age-related osteoporosis without current pathological fracture ([facility]) Hypothyroidism, unspecified type ([facility]) Chronic gout without tophus, unspecified cause, unspecified [...] arthritis with rheumatoid factor, unspecifiedacuteSeptember 2024 10:25am [facility] Work Phone: Instructions Note Date & TypeNoteFacilityInstructionsNot on filedocumented in this encounter [facility] Reason for referral (narrative) Note Date & TypeNoteFacilityReason for referral (narrative)No reason for referral information availablePremier Health Work Phone: Summary Purpose Family History No [...] section and content) DATE CREATED AUTHOR 10/27/2018 [facility] DATE CREATED AUTHOR AUTHOR'S ORGANIZ ATION 01/15/2023 [facility] DATE CREATED AUTHOR AUTHOR'S ORGANIZ ATION 12/22/2024 [facility] EPIC Care Teams (unrecognized sec tion and content) Team MemberRelationshipSpecialtyStart DateEnd Date Brunilda Rose, MEDICAL SAFETY DIRECTOR-HAMMERER [address] [place] [id number] PCP - GeneralNurse Mjvitwbhwzep80/30/19Team MemberRelationshipSpecialtyStart DateEnd Date Jerry Shah MD [address] [place] [address] PCP - GeneralFamily Medicine12/06/23 Brunilda Rose NP [address] [place] [address] Nurse PractitionerAdventhealth Gordon10/18/22Team MemberRelationshipSpecialtyStart DateEnd Date Jerry Shah MD [address] [place] [address] PCP - [facility]12/06/23 Brunilda Rose NP [address] [place] [address] Nurse [facility]10/18/22Te MemberRelationshipSpecialtyStart DateEnd Date Jerry Shah MD [address] [place] [address] PCP - [facility]12/06/23 Brunilda Rose NP [address] [place] [address] Nurse [facility]10/18/22Te MemberRelationshipSpecialtyStart DateEnd Date Jerry Shah MD [address] [place] [address] PCP - [facility]12/06/23 Brunilda Rose NP [address] [place] [address] Nurse [facility]10/18/22Team MemberRelationshipSpecialtyStart DateEnd Date Jerry Shah MD [address] [place] [address] PCP - [facility]12/06/23 Brunilda Rose NP [address] [place] [address] Nurse PractitionerAdventhealth Gordon10/18/22Team MemberRelationshipSpecialtyStart DateEnd Date Jerry Shah MD [address] [place] [address] PCP - [facility]12/06/23 Brunilda Rose NP [address] [place] [address] Nurse PractitionerAdventhealth Gordon10/18/22 Team Status: Active Member Role Status Dates [...] BE BASED ON THE PRIMARY CLINICAL RECORDS. linkedFA [facility]. provides no warranty or guarantee of the accuracy or completeness of information in this document.
[2025-08-13] MEDS: 0.9 % SODIUM CHLORIDE 1,000 ML 125 ML IV ×2 (09:44→17:43)
[2025-08-13] MEDS: SENNOSIDES/DOCUSATE SODIUM 1 TAB TABLET PO ×2 (09:44→21:38)
[2025-08-13] MEDS: CYCLOBENZAPRINE HCL 10 MG TABLET PO ×2 (09:44→21:38)
[2025-08-13] MEDS: OXYCODONE HCL 5 MG TABLET PO (10:14)
--- NOTE | 2025-08-13 10:33 | PM.HP ---
HPI H&P: HPI History of Present Illness Chief complaint: BACK PAIN BURST FRACTURE OF LUMBAR VERTEBRA Narrative: Mrs. Castillo is a 74-year-old female who twisted her back a couple of days ago. She came to the emergency room with a lower back pain. She was sent back home on pain medication. Patient continued to have pain in the lower back with inability to stand up and ambulate due to pain severity. No weakness in legs. Minimal numbing sensation in the right leg. No bowel or bladder retention or incontinence. Repeat CAT scan of the lumbar spine showed L2 compression fracture with 6 mm retropulsion with involvement of the right pedicle Patient was having severe pain therefore I had accepted to admit her for observation, pain management, physical Occupational Therapy. I also ordered MRI of the lumbar spine. Opioid HPI Opioid Management Most Recent Pain and Opioid Data: Last Pain Scale 6 Today, 10:14 Last Pain Assessment Today, 10:00 Last MAR Pain Assessment Today, 10:14 Last ORT Total Score 0 Today, 09:15 Last ORT Risk Category Low Risk Today, 09:15 Review of Systems ROS Status of ROS 10 or more systems reviewed and unremarkable except as noted in history and below PFSH REPLACED BY [facility] Medical History (Updated 08/13/25 @ 09:01 by Jessica Saenz) Diverticulitis ?K57.92 - Diverticulitis of intestine, part unspecified, without perforation or abscess without bleeding (ICD-10) Osteoarthritis (arthritis due to wear and tear of joints) ?M19.90 - Unspecified osteoarthritis, unspecified site (ICD-10) Vaginal cancer ?C52 - Malignant neoplasm of vagina (ICD-10) Hyperthyroidism ?E05.90 - Thyrotoxicosis, unspecified without thyrotoxic crisis or storm (ICD-10) Gout ?M10.9 - Gout, unspecified (ICD-10) Hypertension ?I10 - Essential (primary) hypertension (ICD-10) Rheumatoid arthritis ?M06.9 - Rheumatoid arthritis, unspecified (ICD-10) Surgical History (Updated 08/13/25 @ 07:31 by Olivia Stoll RN) History of partial hysterectomy ?Z90.711 - Acquired absence of uterus with remaining cervical stump (ICD-10) Social History (Updated 08/13/25 @ 09:02 by Jessica Saenz) Within the past year, how often did you have a drink containing alcohol: never Score interpretation: A score less than 3 is consistent with normal alcohol consumption. 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 Highest level of school completed/degree received: high school graduate Are you now , , , , never or living with a partner: In a typical week, how many times do you talk on the telephone with family, friends, or neighbors: 3 or more times per week How often do you get together with friends or relatives: 3 or more times per week How often do you attend yarsanism or sikhism services: never Do you belong to any clubs or organizations such as yarsanism groups unions, [employer] or athleACE Health groups, or school groups: no Total score: 2 Score interpretation: A score of greater than or equal to 2 indicates the lowest level of social isolation. Little interest or pleasure in doing things: several days Feeling down, depressed, or hopeless: several days Feel stressed/tense/nervous/anxious/difficulty sleeping: not at all Gender Identity: female Meds Home Medications and Allergies Home Medications ?Medication ?Instructions ?Recorded ?Confirmed ?Type alendronate 70 mg tablet 70 mg PO QWEEK 08/10/25 08/13/25 History allopurinol 300 mg tablet 300 mg PO DAILY 08/10/25 08/13/25 History colchicine 0.6 mg tablet 0.6 mg PO DAILY 08/10/25 08/13/25 History folic acid 1 mg tablet 1 mg PO DAILY 08/10/25 08/13/25 History furosemide 40 mg tablet 40 mg PO DAILY 08/10/25 08/13/25 History gabapentin 300 mg capsule 300 mg PO BID 08/10/25 08/13/25 History levothyroxine 150 mcg tablet 150 mcg PO DAILY 08/10/25 08/13/25 History lisinopril 10 mg tablet 10 mg PO DAILY 08/10/25 08/13/25 History methotrexate sodium 2.5 mg tablet 25 mg PO QWEEK 08/10/25 08/13/25 History omeprazole 20 mg capsule,delayed 20 mg PO DAILY 08/10/25 08/13/25 History release potassium chloride 10 mEq 20 meq PO BID 08/10/25 08/13/25 History tablet,extended release prednisone 5 mg tablet 5 mg PO DAILY 08/10/25 08/13/25 History cetirizine 10 mg capsule (All Day 10 mg PO DAILY 08/13/25 08/13/25 History Allergy (cetirizine)) docusate sodium 100 mg capsule 100 mg PO DAILY 08/13/25 08/13/25 History (Colace) ibuprofen 600 mg tablet 600 mg PO Q6H PRN pain 08/13/25 08/13/25 History ondansetron HCl 4 mg tablet 4 mg PO Q6H PRN nausea and vomiting 08/13/25 08/13/25 History orphenadrine citrate 100 mg 100 mg PO BID 08/13/25 08/13/25 History tablet,extended release oxycodone-acetaminophen 5 mg-325 1 tab PO Q4H PRN pain 08/13/25 08/13/25 History mg tablet Allergies Allergy/AdvReac Type Severity Reaction Status Date / Time Penicillins Allergy Intermediate swelling Verified 08/10/25 00:36 piroxicam (From Razmir) Allergy Intermediate swelling Verified 08/10/25 00:36 Exam Narrative Exam Narrative: [pt is awake and alert. oriented to place, time and person, morbidly obese moderate distress secondary to low back pain. HEENT: [place] conjunctiva and NL buccal mucosa Neck: Supple, no tenderness Endocrine: No Thyromegaly. Vascular: No JVD or carotid bruit. Lymphatic: No cervical lymphadenopathy. Chest: CTA no DTP. Heart RRR, no extra sound or murmur. Abd: Soft, no tenderness, no rebound and no rigidity. Increase abd girth therefore clinically I could not exclude the possibility of intra abd mass or organomegaly. LE: No cyanosis or clubbing, no varices or edema. Tenderness in the lumbar area. Paraspinal spasm. Patient is taken a long time to change position in bed due to due to pain severity. Patient is unable to sit up on her own without assist. Neuro: A A O. Nl speech, comprehension and attention. Nl and symetrical motor and tone examination through out. Normal muscle strength in lower extremities. No hyperreflexia. No sensory loss. []] Constitutional Vital Signs, click to edit/add: Last Vital Signs Temp 98.2 F 08/13/25 09:15 Pulse 63 08/13/25 09:15 Resp 18 08/13/25 06:38 BP 133/64 08/13/25 09:15 Pulse Ox 91 L 08/13/25 09:15 O2 Del Method Nasal Cannula 08/13/25 09:15 O2 Flow Rate 2 08/13/25 09:15 Results Labs Labs: Short CBC 08/13/25 Range/Units 02:18 WBC 9.0 (4.0-11.0) 10^3/uL Hgb 15.1 (12.0-16.0) g/dL Hct 44.7 (36.0-48.0) % Plt Count 203 (150-450) 10^3/uL BMP 08/13/25 02:18 Sodium 133 L Potassium 5.3 H Chloride 94 L Carbon Dioxide 32.8 H BUN 27.0 H Creatinine 1.18 H Glucose 98 Calcium 9.1 Assessment and Plan Assessment and Plan (1) Burst fracture of lumbar vertebra: (2) Lumbar compression fracture: (3) Low back pain: Plan Acute spontaneous L2 fracture with retropulsion Severe pain limiting her ability to stand up and ambulate. I have accepted to observe her for pain management and therapy program. I requested MRI of the lumbar spine to take a better look at the lumbar area and provide further advice and recommendations. I started the patient on a combination of pain medications including Tylenol, Flexeril, Toradol as needed, Dilaudid as needed severe pain, oxycodone as needed moderate pain. Rheumatoid arthritis Hypertension LAUREL with hyperkalemia Hold lisinopril. IV fluid infusion Monitor kidney function. Avoid nephrotoxic drugs. Suspect vitamin D deficiency and osteoporosis Check vitamin D level. Recommend DEXA scan to be done in the outpatient setting and if positive initiate bisphosphonate treatment DVT prophylaxis Lovenox. Tobacco addiction Counseling and education were provided. Increased risk of lung cancer due to smoking for many years. Recommend yearly low-dose radiation CAT scan of the chest to screen for lung cancer to be arranged by PCP Chronic, subacute medical conditions not listed above, abnormal labs and imaging. These would need to be addressed. Could be addressed later on or in the outpatient setting by PCP collaboration with other needed outpatient providers when time and condition are appropriate.
--- NOTE | 2025-08-13 12:19 | PM.EN ---
Event Note Event Note: I called and discussed her case with Dr. Bossman Landin I provided him information about her clinical presentation, clinical findings and MRI findings. He stated that 5 mm retrobulging into the thecal sac may not be enough justification to proceed with any surgical invention as long as the fracture is stable and the patient does not have worsening neurological symptoms. He recommended LSO brace and a follow-up in the outpatient setting. I appreciate Dr. Landin's recommendation
--- NOTE | 2025-08-13 12:26 | SWNOTE1 ---
DESI spoke with case management and pt will need an LSO brace. DESI called Alisha, director of med/sruge, and DESI just needs to call [facility], as we do have an agreement at this time. SW to send over the proper paperwork to [facility].
--- NOTE | 2025-08-13 12:43 | SWNOTE1 ---
DESI called [facility] in [place] in regards to LSO brace. They took down pt's information and would like SW to fax face sheet, order, and documentation. They will send someone out to fit pt today. SW to let pt know. DESI faxed completed DME order form, physician note from today, and face sheet to [facility].
--- NOTE | 2025-08-13 14:50 | SWNOTE1 ---
Medicare Outpatient Observation Notice reviewed and discussed with patient. Pt. verbalized understanding and signed the form. Original given to patient and copy placed in patient?s chart.
--- NOTE | 2025-08-13 14:53 | SWNOTE1 ---
SW met with pt to discuss dc needs. SW notified them that a residential sales representative from [facility] will be in between 2-2:30 to fit her for LSO brace, if they do not make it in at that time, they will be in after 4:00. They voiced understanding. SW did ask about living situation. They let SW know that pt was not using a walker at this time, but has as walker at home if needed. The bedroom is one second floor, 15 steps. Pt's is looking in to getting a mattress and bed for downstairs in the extra room. SW did ask about a hospital bed and if they would be interested in renting one? Pt's stated he is going to look in to a store in [place] that has mattresses and beds. They do have a full bathroom on first floor. SW did ask pt about home health services and having therapy come in to the home to do exercises with her. She stated she does not want to decide that right now. SW offered to return tomorrow, pt agreeable. At this time pt and have no further questions. SW to follow as needed.
[2025-08-13] MEDS: ACETAMINOPHEN 325 MG TABLET 1000 MG PO (15:15)
[2025-08-13] MEDS: HYDROMORPHONE HCL 0.5 MG/0.5 ML SYRINGE IVP (16:59)
[2025-08-13] MEDS: METOPROLOL SUCCINATE 25 MG TAB.ER.24H PO (18:34)
[2025-08-13] MEDS: ACETAMINOPHEN 500 MG TABLET 1000 MG PO (21:37)
[2025-08-13] MEDS: DEXAMETHASONE SOD PHOS 4 MG/ML VIAL 6 MG IV (21:38)
[2025-08-13] MEDS: GABAPENTIN 300 MG CAPSULE PO (21:38)
[2025-08-14 04:00] VITALS: BP 125/79; PULSE 51; TEMP 36.4; O2SAT 92
[2025-08-14 05:42] LABS: Hematocrit 42.3 % (36.0-48.0); Hemoglobin 14.1 g/dL (12.0-16.0); Immature Granulocytes Abs Auto 0.02 10^3/uL (0.00-0.03); Immature Granulocytes Pct Auto 0.2 % (0.0-0.5); Lymphocytes Absolute Auto 0.4 10^3/uL (1.2-3.8); Mean Corpuscular HGB Conc 33.3 g/dL (29.9-35.2); Mean Corpuscular Hemoglobin 34.7 pg (26.7-34.0); Mean Corpuscular Volume 104.2 fL (81.0-99.0); Platelet Count 221 10^3/uL (150-450); Red Blood Count 4.06 10^6/uL (4.20-5.40); White Blood Count 8.8 10^3/uL (4.0-11.0)
[2025-08-14] MEDS: ACETAMINOPHEN 500 MG TABLET 1000 MG PO ×3 (05:55→22:21)
[2025-08-14] MEDS: LEVOTHYROXINE SODIUM 75 MCG TABLET 150 MCG PO (05:55)
[2025-08-14] MEDS: PANTOPRAZOLE SODIUM 40 MG TABLET.DR PO (05:55)
[2025-08-14 06:05] LABS: Alanine Aminotransferase 27 U/L (14-59); Albumin Globulin Ratio 0.9; Albumin Level 3.0 g/dL (3.4-5.0); Alkaline Phosphatase 70 U/L (46-116); Anion Gap 12.8; Aspartate Amino Transferase 16 U/L (15-37); Blood Urea Nitrogen 24.0 mg/dL (7.0-18.0); Calcium 8.2 mg/dL (8.5-10.1); Carbon Dioxide 27.8 mmol/L (21.0-32.0); Chloride 98 mmol/L (98-107); Estimated GFR (African America >60 (>=60 mL/min/1.73m^2); Estimated GFR (Non-African Ame >60 (>=60 mL/min/1.73m^2); Globulin 3.4 g/dL; Glucose 152 mg/dL (74-106); Potassium 5.6 mmol/L (3.5-5.1); Sodium 133 mmol/L (136-145); Total Protein 6.4 g/dL (6.4-8.2)
[2025-08-14 07:53] VITALS: BP 138/64; PULSE 52; TEMP 36.2; O2SAT 95
--- OUTSIDE RECORDS SUMMARY | 2025-08-14 07:56 | XMS_ITS | Clinical Summary ---
Author Organization [employer] [facility] Address [id number] [place] [address] Care Team Providers Care Maintenance Department Technician Name Role Phone RamseyBrunilda barone Altagracia MEAT SMOKER-HARDWARE ASSEMBLER Primary Care Provider Allergies Active AllergyReactionsCriticalityNoted DateCommentsPiroxicamSwellingMedium 08/16/20198894IwdumehglueIoxxEfd04/02/2016 Medications MedicationSigDispense QuantityRefillsLast FilledStart DateEnd DateStatus acetaminophen [...] Social History Tobacco UseTypesPacks/DayYears UsedDateSmoking Tobacco: Every YlaOgovdrrgpk252 Smokeless Tobacco: NeverAlcohol UseStandard Drinks/WeekCommentsNever0 (1 standard drink = 0.6 oz pure alcohol)AUDIT-CAnswerDate RecordedFrequency of Alcohol EpbgdjgkagsSftjp55/30/2019Average Number of DrinksNot on file08/16/2019 Frequency of Binge DrinkingNot on file08/16/2019ChildcareAnswerDate Recorded FloukprmqRbopwmo03/12/2019EmploymentAnswerDate RecordedEmploymentUnknown 03/29/2019Purpose - LifeAnswerDate RecordedPurpose and direction in lifeUnknown 1CommentsNoSex and Gender InformationValueDate RecordedSex Assigned at BirthNot on fileLegal KhtTzgafm58/06/2015 11:35 AM EDTGender IdentityNot on fileSexual OrientationNot on file Last Filed Vital Signs Vital SignReadingTime TakenCommentsBlood Xorfszsv539/85010/21/2022 10:02 AM EST Pptlv939310/21/2022 10:02 AM RWWEeptnqhkhxz14.6 ??C (97.9 ??F)10/21/2022 10:02 AM ESTRespiratory Mnok016810/21/2022 10:02 AM ESTOxygen Qwgwvxuvvh39%10/21/2022 10:02 AM ESTInhaled Oxygen Concentration--Zxpagr090.9 kg (251 lb)10/21/2022 10:02 AM BMMNnyugw294.6 cm (5' 4 )10/21/2022 10:02 AM ESTBody Mass Index43.0810/21/2022 10:02 AM EST Plan of Treatment Health MaintenanceDue DateLast DoneCommentsDepression Rknrhymrz72/09/1962Tobacco Mqpchjasf78/09/1962DTaP,Tdap and Td Vaccines (1 - Tdap)1969Zoster (Shingles) Vaccine (1 of 2)2000Fall Risk Boezlqejd74/09/2015dult BMI Nqiebtjkm70OVID-19 Vaccine (2024- season)2025 08/11/2022, 09/10/2021, 01/07/2021, Additional history existsInfluenza Vaccine , 08/26/2021, 08/27/2020 Medical Devices Not on file Insurance Care Teams Team MemberRelationshipSpecialtyStart DateEnd Date Brunilda Rose, MEAT SMOKER-HARDWARE ASSEMBLER PCP - GeneralNurse Cvfzdqokdwnr34/30/19
--- OUTSIDE RECORDS SUMMARY | 2025-08-14 07:56 | XMS_ITS | Clinical Summary ---
Author Organization [facility] Address [address] [place] [address] Care Team Providers Care Microbiology Coordinator Name Role Phone Brunilda Rose NP Unavailable [phone] Jerry Shah MD Primary Care Provider [phone] Allergies Active AllergyReactionsCriticalityNoted EuxlIzpilkfuHaphhnrikIpyfmpev59/19/2024 UuyrycpudzzYefdbgy81/19/2024 Medications MedicationSigDispense QuantityRefillsLast FilledStart DateEnd DateStatus methotrexate [...] tablet Take 0.6 mg by mouth As cyfigtrs84/08/2024ctive alendronate (Fosamax) 70 MG tablet Take 70 [...] Problems ProblemNoted DateDiagnosed DateCigarette nicotine dependence without ocpywfxhahaf35/05/2025 Assessment & Plan (12/20/2024 6:53 AM EST): The patient has been advised of the risks of continued smoking: stroke, OR, all forms of cancer, lung disease, and . Options for quitting smoking include: cold turkey, hypnosis, acupuncture, nicotine replacement meds(gum, lozenges, and patches), Buproprion, and Varenicline. At this time pt is encouraged to evaluate their goals for wanting to quit smoking, and reach out toprovider when ready to start this process Vmlktvxfldbqtz57/26/2024 Assessment & Plan (12/20/2024 11:39 AM EST): [...] script Fu in 6 months Abdominal pain, ppdqzvfbmag28/26/2024HTN (hypertension)12/13/2023 Assessment & Plan (12/20/2024 6:44 AM [...] EST): Stable, no changes Malignant neoplasm of nbuzjj9512/13/2023 Assessment & Plan (06/12/2024 6:52 AM EDT): Continue with Senior Accountant/Onc Pfgnpbkhwljg01/26/2024 Overview (05/09/2024): DEXA: 05/08/24: lumbar -2.1 and right femur -3.0 osteoporosis Assessment & Plan (12/20/2024 6:54 AM EST): DEXA was 05/10, -3.0, Current med fosamax Brjkcxdfzwmfaq52/26/2024Lower extremity edema12/13/2023 Assessment & Plan (12/20/2024 6:46 AM EST): Lasix Limit sodium, elevate feet as much as possible Check labs yearly and prn Assessment & Plan (12/13/2023 11:59 AM EST): Stable, no acute swelling Heel spur, left12/13/2023Vitamin B12 hflvnwwbcu64/26/2024Morbid (severe) obesity due to excess evqtnrrm24/26/2024 Assessment & Plan (12/20/2024 6:48 AM EST): Discussed with patient their BMI (actual, verses recommended). We have also discussed lifestyle modifications: attempts to perform physical activity as chronic conditions allow, also to monitor dietary intake: increasing protein/fruits/veggies and lowering carb intake (unless contraindicated). Limit sodas, juices, and sugary drinks. Hzgvptobwod18/26/2024 Assessment & Plan (12/20/2024 6:48 AM EST): Current med on levothyroxine Check labs yearly, prn dose changes, changes in symptoms Assessment & Plan (06/12/2024 11:23 AM EDT): Fatigue, takes thyroid meds daily as directed Assessment & Plan (12/13/2023 11:59 AM EST): No changes to meds Rheumatoid arthritis with rheumatoid factor, hgxoemntxju00/26/2024 Assessment & Plan (12/20/2024 6:52 AM EST): Continue with dr fernandez Current meds: humira, methotrexate, Assessment & Plan (12/13/2023 12:04 PM EST): Continue with dr fernandez Non-compliant aoemlcx8912/13/20232472Nhucenqslxoqb60/26/2024 Assessment & Plan (12/20/2024 11:38 AM EST): [...] see what glucose is H/O degenerative disc cdsiweh4112/13/2023Gout12/13/2023 Assessment & Plan (12/20/2024 6:50 AM EST): Current meds allopurinol and colchicine Labs check w Rheumatology Xkkpeel1312/13/2023 Assessment & Plan (06/12/2024 11:27 AM EDT): [...] A1c test and go from there Allergic dkbulkbk28/26/2024cute pain of left itnufoxz29/26/2024 Assessment & Plan (12/13/2023 12:02 PM EST): [...] 6:45 AM EST): 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 w COMMODITIES BROKER/onc Body mass index (BMI) 40.0-44.9, adult09/27/2019Chronic idiopathic gout of multiple sites10/06/2016 Assessment & Plan (12/20/2024 6:46 AM EST): Takes allopurinol Labs are follow with Rheumatology Gastroesophageal reflux disease without wbjfdcmghdi92/20/2016 Assessment & Plan (12/20/2024 11:40 AM EST): [...] without complication, without long-term current use of irsmdcb68/Morbid gannsvh70Other specified rheumatoid arthritis, multiple sitesSmoker112/07/2015 12/20/2024 Overview (12/13/2023): 45+ pack years Immunizations ImmunizationAdministration DatesNext DueInfluenza, Seasonal, Quadrivalent, Qjhfybuqaw48/13/2023,08/11/2022,08/26/2021,08/27/2020Pfizer Purple Cap SARS-CoV-2 Fwjqxnrklwo27/24/2021,01/07/2021,1Pneumococcal Conjugate PCV 13110/27/2019Pneumococcal Polysaccharide FQSI5872/11/9163JVIK-SXW-6 (COVID-19) vaccine, mRNA, spike protein, LNP, PF, [place]-sucrose, 30 mcg/0.3 mL07/30/2023 SARS-COV-2 (COVID-19) vaccine, mRNA, spike protein, LNP, bivalent, preservative free, 30 mcg/0.3 mLdose, [place]-sucrose lrpxqvslejk33/25/2022 Social History Tobacco UseTypesPacks/DayYears UsedDateSmoking Tobacco: Every [...] relatives?Once a week12/13/2023How often do you attend taoist or orthodoxy services?Never12/13/2023o you belong to any clubs or organizations such as taoist groups, unions, fraternal or athletic groups, or school groups?Yes12/13/2023How often do you attend meetings of the clubs or organizations you belong to?Never12/13/2023re you , , , , never , or living with a partner?Idihnyf1612/13/2023UDIT-C AnswerDate RecordedQ1: How often do you have [...] hard at all12/13/2023 PHQ-2AnswerDate RecordedPatient Health Questionnaire-2 Jfeoa974Finblue mountain hospital, inc. [facility] of Occupational [facility] - Occupational Stress QuestionnaireAnswerDate RecordedDo you feel stress - tense, restless, nervous, or anxious, or unable to sleep at night because yourmind is troubled all the time - these days?Only a ynxkvz5312/13/2023Exercise Vital SignAnswerDate RecordedOn average, how many days [...] steady place to sleep or slept in [facility] (including now)?No12/13/2023CommentsUnknownSex and Gender InformationValueDate RecordedSex Assigned at BirthNot on fileLegal SexFemale 06/16/2023 9:04 AM EDTGender IdentityNot on fileSexual OrientationNot on file Last Filed Vital Signs Vital SignReadingTime TakenCommentsBlood Pqiugyzg602/80012/20/2024 10:30 AM EST Uzjyf357412/20/2024 10:30 AM NTMSuwuxzjjdzo38.8 ??C (98.3 ??F)12/20/2024 10:30 AM ESTRespiratory Djkq058712/20/2024 10:30 AM ESTOxygen Ppgfdoedss84%12/20/2024 10:30 AM ESTInhaled Oxygen Concentration--Qqotub631 kg (244 lb 6.4 oz)12/20/2024 10:30 AM HXWFeacnb589.6 cm (5' 4 )12/20/2024 10:30 AM ESTBody Mass Index41.95 12/20/2024 10:30 AM EST Plan of Treatment Not on file Insurance Care Teams Team MemberRelationshipSpecialtyStart DateEnd Date Jerry Shah MD PCP - GeneralFamily Medicine12/06/23 Brunilda Rose NP Nurse PractitionerFamily Medicine10/18/22
--- OUTSIDE RECORDS SUMMARY | 2025-08-14 07:56 | XMS_ITS | Clinical Summary ---
Author Organization [facility] Address [address] [place], [place] [address] Care Team Providers Care Filler Shredder Helper Name Role Phone Katherine Slater MD, Armani Hamilton Unavailable [phone] Brunilda Rose CNP Primary Care Provider [phone] Allergies Active AllergyReactionsCriticalityNoted HrxeHkidiodkJwakpbrvgjlRlrw25/02/2016 Medications MedicationSigDispense QuantityRefillsLast FilledStart DateEnd DateStatus methotrexate [...] once daily.03/30/2017Active Active Problems ProblemNoted DateDiagnosed DateMorbid sezsqxm6310/06/2016Other specified rheumatoid arthritis, multiple sites10/06/2016Chronic idiopathic gout of multiple sites10/06/2016Gastroesophageal reflux disease without esophagitis 10/06/20162875Ndghkx45/20/2016 Overview (10/06/2016): 45+ pack years Family History RelationStatusCommentsFatherDeceasedMotherDeceased Social History Tobacco UseTypesPacks/DayYears UsedDateSmoking Tobacco: Every XgmVvydtovpam776 Smokeless Tobacco: Never Tobacco Cessation:Ready to Q uit: No; Counseling Given: Yes Alcohol UseStandard Drinks/WeekCommentsNo0 (1 standard drink = 0.6 oz pure alcohol)Area Deprivation IndexAnswerDate RecordedNational Score (1-100), lower number is lower riskNot on file2020State Score (1-10), lower number is lower riskNot on file2020Data from: https://www.neighborhoodatlas.medicine.[facility].edu/. Last address used for calculationNot on file2020CommentsNoSex and Gender Information ValueDate RecordedSex Assigned at BirthNot on fileLegal DhvOagmeu11/01/2016 4:57 PM ESTGender IdentityNot on fileSexual OrientationNot on file Last Filed Vital Signs Vital SignReadingTime TakenCommentsBlood Tuskjgit718/8210/21/2018 10:45 AM EST Spixq972610/21/2018 10:45 AM OQKCcvbipeulcb10.7 ??C (98 ??F)10/21/2018 10:45 AM ESTRespiratory Fwsd956510/21/2018 10:45 AM ESTOxygen Cywhfdqlzr42%10/21/2018 10:45 AM ESTInhaled Oxygen Concentration--Onuwrk531.9 kg (268 lb 12.8 oz)10/21/2018 10:45 AM XJWDnxmmg245.1 cm (5' 5 )10/21/2018 10:45 AM ESTBody Mass Index44.73 10/21/2018 10:45 AM EST Plan of Treatment Health MaintenanceDue DateLast DoneCommentsAnxiety Iktzqvbls27/09/1968Depression Kitszhlkk07/09/1968Hepatitis C Zboyytojf24/09/1968DTaP,Tdap,Td Vaccine (1 - Tdap)1969Mammogram Sclrezbob97/09/1990CT Wxpkfjopnwdy28/09/1995Cologuard (FIT-DNA)09/25/19951771Mnuazlkslrh26/09/1995Colorectal Cancer Quqttvfch26/09/1995 Fecal Occult Blood1995Lipid Cvqqogtjs61/09/5333Ggevhhcaffcwg03/09/1995 Pneumococcal Vaccine: 50+ (1 of 1 - PCV)2000Shingrix Vaccine (1 of 2) 2000Bone Density Vvnfzorec85/09/2015Diabetes Oflaxzfkk79 Advance Directive Zjeqcbgkvx12/01/2025ovid-19 Vaccine (1 - 2024- season) 2025Influenza Vaccine (#1)2025RSV Vaccine (1 - 1-dose 75+ series) 2025 Procedures Procedure NamePriorityDate/TimeAssociated DiagnosisCommentsBASIC METABOLIC PANEL (EU,FV,HL,BRIA,MM,SP)ASAP10/30/2016 7:24 AM EST from Last 3 Months or Most Recently Relevant to Health Maintenance Results * (ABNORMAL) BASIC METABOLIC PANEL (AV,EU,FV,HL,BRIA,MM,SP) (10/30/2016 7:24 AM EST)ComponentValueRef RangeTest MethodAnalysis TimePerformed AtPathologist ErudhvunlSyksetq195(H)65 - 100 mg/dL10/30/2016 8:58 AM [facility] BUN98 - 25 mg/dL10/30/2016 8:58 AM ESTFAIR[facility] LABORATORYCreatinine0.63(L)0.70 - 1.40 mg/dL10/30/2016 8:58 AM [facility] XWDNLYKRZGQwereq415021 - 148 mmol/L 10/30/2016 8:58 AM ESTFA[facility] LABORATORYPotassium3.83.5 - 5.0 mmol/L 10/30/2016 8:58 AM [facility] RAOQLRRPTYYgiwqjux7673 - 110 mmol/L10/30/2016 8:58 AM [facility] SMDQJSNSBXPD28968 - 32 mmol/L10/30/2016 8:58 AM EST [facility]ORATORYAnion Skn277 - 18 mmol/L10/30/2016 8:58 AM ESTFAIRVIEW LABORATORYCalcium8.58.5 - 10.5 mg/dL10/30/2016 8:58 AM ESTFA[facility] Glom Filtration Rate (AA)>60>60010/30/2016 8:58 AM ESTFAIRVIEW LABORATORYGlom Filtration Rate (SENAIT)>60>60 .10/30/2016 8:58 AM ESTFAIRVIEW LABORATORYSpecimen (Source)Anatomical Location / LateralityCollection Method / VolumeCollection TimeReceived TimeBlood specimen (specimen)BLOOD SPECIMEN / Bbbixhr9210/30/2016 7:24 AM EST10/30/2016 7:25 AM EST Narrative Authorizing ProviderResult TypeResult StatusLatonya Reyes MDLABORATORY REGIONALFinal ResultPerforming OrganizationAddressCity/State/ZIP CodePhone Number [facility] [address] [phone] from Last 3 Months or Most Recently Relevant to Health Maintenance Insurance Care Teams Team MemberRelationshipSpecialtyStart DateEnd Date Brunilda Rose CNP PCP - GeneralFamily Medicine04/15/18 Armani Murphy Jr., MD Gxitnfcaiyrx39/20/16
--- OUTSIDE RECORDS SUMMARY | 2025-08-14 07:58 | XMS_ITS | CCD ---
Author Organization [facility] CliniSyla Care Team Providers Care Technical Applications Specialist Name Role Phone MAHDI, BLAINE Unavailable Unavailable MAHDI, BLAINE Unavailable Unavailable MAHDI, BLAINE Unavailable Unavailable MAHDI, BALINE Unavailable Unavailable AICHHOLZ, TAXATION CONSULTANT BRUNILDA Primary Care Unavailable MISC, DOCTOR Attending Unavailable MISC, DR SMITH Consulting Unavailable MISC, DR SMITH Admitting Unavailable AICHHOLZ, TAXATION CONSULTANT BRUNILDA Consulting Unavailable AICHHOLZ, TAXATION CONSULTANT BRUNILDA Admitting Unavailable AICHHOLZ, TAXATION CONSULTANT BRUNILDA Primary Care Unavailable AICHHOLZ, TAXATION CONSULTANT BRUNILDA Attending Unavailable MISC, DR SMITH Admitting Unavailable AICHHOLZ, TAXATION CONSULTANT BRUNILDA Primary Care Unavailable MISC, DR SMITH Attending Unavailable MISC, DR SMITH Consulting Unavailable AICHHOLZ, TAXATION CONSULTANT BRUNILDA Attending Unavailable AICHHOLZ, TAXATION CONSULTANT BRUNILDA Consulting Unavailable AICHHOLZ, TAXATION CONSULTANT BRUNILDA Primary Care Unavailable AICHHOLZ, TAXATION CONSULTANT BRUNILDA Admitting Unavailable AICHHOLZ, TAXATION CONSULTANT BRUNILDA Primary Care Unavailable MISC, DR SMITH Attending Unavailable MISC, DR SMITH Consulting Unavailable AICHHOLZ, TAXATION CONSULTANT BRUNILDA Admitting Unavailable AICHHOLZ, TAXATION CONSULTANT BRUNILDA Primary Care Unavailable THERESA, DR KAPOOR Admitting Unavailable KOKO, DR KALEIGH Jameson Consulting Unavailable CARDENAS, DR KAPOOR Attending Unavailable CARDENAS, DR KAPOOR Consulting Unavailable MISC, DR SMITH Attending Unavailable AICHHOLZ, TAXATION CONSULTANT BRUNILDA Primary Care Unavailable MISC, DR SMITH Consulting Unavailable MISC, DR SMITH Admitting Unavailable Aichholz ORIENTAL RUG STRETCHER-GEIN, Brunilda Altagracia Primary Care Provider Aichholz SECURITY SPECIALIST, Brunilda Unavailable Jerry Shah MD Primary Care Provider AICHHOLZ, BRUNILDA Attending Unavailable AICHHOLZ, BRUNILDA Attending Unavailable Aichholz SECURITY SPECIALIST-C, Brunilda J Primary Care Provider [phone] Milton LARA, Brunilda Frias Attending Provider Allergies Allergy ClassificationReported Allergen(s)Allergy TypeDate of OnsetReaction(s) Facility (12 sources)Penicillins; Translations: [PENICILLINS]Propensity to adverse reactions to drug (disorder)22-79-8082Wzzk, UnknownL[facility] (11 sources)PiroxicamDrug Fjswpfe09-41-1188JcqlcyvyJomYdbwzk [facility] Medications Current Medications MedicationDrug Class(es)DatesSig (Normalized)Sig (Original)acetaminophen 325 mg oral tablet (1 source)Start: 38-69-4714swzo 2 tablets by mouth every six hours as needed acetaminophen (TYLENOL) 325 mg tablet Take 650 mg by mouth every 6 (six) hours as needed. 0 10/30/2016 Active0.8 ml adalimumab 50 mg/ml prefilled syringe (11 sources)Tumor Necrosis Factor BlockerStart: 97-06-4897Xbzpmvcoad (Humira) 40 mg/0.8 mL syringe kit Active [...] acid 70 mg oral tablet (5 sources)BisphosphonateStart: 61-53-3631lxqs 1 tablet by mouth every week Alendronate (Fosamax) 70 mg tablet Active 70 MG PO every week July 13, 2025 12:00am Complieswith drug therapyStart: 61-68-9418hyrvmwvrqzm (Fosamax) 70 MG tablet Take 70 mg by mouth every 7 (seven) days 11/28/2024 Activeallopurinol 300 mg oral tablet (11 sources)Xanthine Oxidase InhibitorStart: 76-23-4396dobx 1 tablet by mouth once dailyAllopurinol 300 mg tablet Active 300 MG PO Daily July 13, 2025 12:00am Complies with drug therapyStart: 90-92-8363zpuh 1 tablet by mouth in the morningallopurinol (Zyloprim) 300 MG tablet Take 1 tablet by mouth in the morning. 09/30/2023 Activecalcium citrate/vitamin D3 (CITRACAL REGULAR ORAL) (1 source)take 2 tablets by mouth once dailycalcium citrate/vitamin D3 (CITRACAL REGULAR ORAL) Take 2 tablets by mouth daily. 0 Activecalcium polycarbophil 625 mg oral tablet (11 sources)Start: 79-00-1432Jymbffw Polycarbophil 625 mg tablet Active 1250 MG PO Daily July 13, 2025 12:00am Complies with drug therapytake 1 tablet by mouth in the morningCalcium Polycarbophil (fiber) 625 MG tablet Take 625 mg by mouth in the morning. Activecetirizine hydrochloride 10 mg oral tablet (11 sources)Histamine-1 Receptor AntagonistStart: 93-02-2522ujwn 1 tablet by mouth once daily as [...] Activecolchicine 0.6 mg oral tablet (13 sources)Start: 33-81-5000gxed 1 tablet by mouth once daily as needed Colchicine 0.6 mg tablet Active 0.6 MG PO Daily as needed for gout July 13, 2025 12:00am Complies with drug therapyStart: 44-30-8380imuvgnsjzs 0.6 MG tablet Take 0.6 mg by mouth As directed 05/25/2024 ActiveStart: 09-30-2023 End: 77-45-8632hvrv 1 capsule by mouth in the morningMitigare 0.6 MG capsule Take 1 capsule by mouth in the morning. 09/30/2023 06/12/2024 Discontinued ( Therapy completed)Start: 63-73-5854boex 1 tablet by mouth once dailycolchicine (COLCRYS) 0.6 mg tablet Take 0.6 mg by mouth daily. 0 03/30/2017 Activedocusate sodium 100 mg oral capsule (1 source)Start: 60-01-6453hdkd 1 capsule by mouth every twelve hours as needed docusate sodium (COLACE) 100 mg capsule Take 100 mg by mouth every 12 (twelve) hours as needed. 0 10/30/2016 Activefolic acid 1 mg oral tablet (14 sources)Start: 48-39-2410fnpe 1 tablet by mouth once dailyFolic Acid 1 mg tablet Active 1 MG PO Daily July 16, 2025 12:00am Complies with drug therapyStart: 11-28-2024 End: 60-31-6870zfex 1 tablet by mouth once dailyfolic acid (Folvite) 1 MG tablet Indications: Rheumatoid arthritis with rheumatoid factor, unspecified (CMS/HCC) Take 1 tablet (1 mg) by mouth Daily 90 tablet 3 12/20/2024 03/20/2025 Active Start: 09-30-2023 End: 95-03-7469claq 1 tablet by mouth once daily in the morningfolic acid (Folvite) 1 MG tablet Indications: Rheumatoid arthritis with positive rheumatoid factor,involving unspecified site (CMS/HCC) Take 1 tablet (1,000 mcg) by mouth Daily Take 1 tablet by mouth in the morning. 90 tablet 3 06/12/2024 09/10/2024 Activefurosemide 40 mg oral tablet (15 sources)Loop DiureticStart: 18-30-1523jamr 1 tablet by mouth once daily Furosemide (Lasix) 40 mg tablet Active 40 MG PO Daily July 13, 2025 12:00am Complies with drug therapyStart: 12-13-2023 End: 26-08-1421qglu 1 tablet by mouth once dailyfurosemide (Lasix) 40 MG tablet Indications: Lower extremity edema Take 1 tablet (40 mg) by mouth Daily 90 tablet 3 12/20/2024 03/20/2025 ActiveStart: 47-49-9807xuyn 1 tablet by mouth once dailyfurosemide (LASIX) 40 mg tablet Take 40 mg by mouth daily. 0 06/13/2016 Activegabapentin 300 mg oral capsule (19 sources)Anti-epileptic AgentStart: 81-77-8316jbgx 1 capsule by mouth twice dailyGabapentin 300 mg capsule Active 300 MG PO Twice daily July 13, 2025 12:00am Complies with drug therapyStart: 12-13-2023 End: 56-46-1332ouhs 1 capsule by mouth in the morninggabapentin (Neurontin) 300 MG capsule Indications: Polyneuropathy Take 1 capsule (300 mg) by mouth in the morning and 1 capsule (300 mg) before bedtime. 180 capsule 3 12/20/2024 03/20/2025 ActiveStart: 12-13-2023 End: 73-69-4871ruws 1 capsule by mouth in the morninggabapentin (Neurontin) 100 MG capsule Indications: Polyneuropathy Take 1 capsule (100 mg) by mouth in the morning. 90 capsule 3 12/13/2023 06/12/2024 Discontinued (Ineffective)Start: 65-16-5760jefy 1 capsule by mouth once dailygabapentin (NEURONTIN) 300 mg capsule Take 300 mg by mouth nightly. 0 06/08/2016 Activegabapentin (NEURONTIN) 100 mg capsule Take 100 mg by mouth daily. !00 mg in AM, and 300 MG in PM 0 A ctivelevothyroxine sodium 0.15 mg oral tablet (15 sources)l-ThyroxineStart: 52-63-7008hjde 1 tablet by mouth once daily Levothyroxine 150 mcg tablet Active 150 MCG PO Daily July 13, 2025 12:00am Complies with drug therapyStart: 12-13-2023 End: 72-01-5376elbj 1 tablet by mouth before mealtimelevothyroxine (Synthroid, Levoxyl) 150 MCG tablet Indications: Hypothyroidism, unspecified type (CMS/HCC) Take 1 tablet (150 mcg) by mouth in the morning. Take before meals. 90 tablet 3 12/20/2024 03/20/2025 ActiveStart: 94-39-9939ucov 1 tablet by mouth once daily levothyroxine (SYNTHROID, LEVOTHROID) 175 MCG tablet Take 175 mcg by mouth daily. 0 08/04/2019 Activelisinopril 10 mg oral tablet (15 sources)Angiotensin Converting Enzyme InhibitorStart: 98-59-7884zfkr 1 tablet by mouth once dailyLisinopril 10 mg tablet Active 10 MG PO Daily July 13, 2025 12:00am Complies with drug therapyStart: 12-13-2023 End: 41-02-4812merc 1 tablet by mouth once dailylisinopril 10 [...] hydroxide 80 mg/ml oral suspension (1 source)Start: 62-31-8798mcakwcdgd hydroxide (MILK OF MAGNESIA) 400 mg/5 mL suspension Take 15 mL by mouth. 0 10/30/2016 Activemethotrexate 2.5 mg oral tablet (11 sources)Folate Analog Metabolic InhibitorStart: 82-67-4790vusc 1 tablet by mouth every weekMethotrexate Sodium [...] mouth daily. 0 ActiveMultivitamin tablet (1 source)Start: 60-71-4091kzmu 1 tablet by mouth once dailyMultivitamin tablet Active 1 TAB PO Daily July 13, 2025 12:00am Complies with drug therapy omeprazole 20 mg delayed release oral capsule (13 sources)Proton Pump InhibitorStart: 23-36-2463kjxf 1 capsule by mouth once dailyOmeprazole 20 mg capsule,delayed release(DR/EC) Active 20 MG PO Daily July 13, 2025 12:00am Complies with drug therapyStart: 12-13-2023 End: 98-00-4801qntk 1 capsule by mouth before mealtimeomeprazole (PriLOSEC) [address] capsule Indications: Gastroesophageal reflux disease without esophagitis Take 1 capsule (20 mg) by mouth in the morning. Take before meals. 90 capsule 3 12/20/2024 03/20/2025 Activetake 1 capsule by mouth once dailyomeprazole (PriLOSEC) 20 mg capsule Take 20 mg by mouth daily. 0 Activepotassium chloride 10 meq extended release oral tablet (15 sources)Start: 61-09-1976wlhv 2 tablets by mouth twice dailyPotassium Chloride 10 mEq tablet extended release Active 20 MEQ PO Twice daily July 132:00am Complies with drug therapyStart: 25-51-3344pvrugyfrg chloride CR (Klor-Con) 10 MEQ ER tablet Indications: Lower extremity edema 2 pills twice a day 360 tablet 3 12/20/2024 ActiveStart: 12-13-2023 End: 04-90-3141zdtxbbeor chloride CR (Klor-Con) 10 MEQ ER tablet Indications: Lower extremity edema 2 pills twice a day2 pills twice a day 360 tablet 3 06/12/2024 12/20/2024 Discontinued (Reorder)Start: 69-62-2941yocsngtlj chloride (K-DUR,KLOR-CON) 10 MEQ CR tablet Take 10 mEq by mouth daily. 0 03/30/2017 ActivepredniSONE 5 mg oral tablet (11 sources)Start: 18-03-6998wizv 7.5 mg by mouth once dailyPrednisone 5 mg tablet Active 7.5 MG PO Daily July 13, 2025 12:00am Complies with drug therapyStart: 88-58-6895jpri 1.5 tablets by mouth in the morningpredniSONE (Deltasone) 5 MG tablet Take 1.5 tablets by mouth in the morning. 09/30/2023 Activetake 1 tablet by mouth once dailypredniSONE (DELTASONE) 5 mg tablet Take 5 mg by mouth daily. 0 Activevitamin b12 1 mg/ml injectable solution (1 source)Vitamin F33bndwrjyliastcy (VITAMIN B-12) 1,000 mcg/mL injection Inject 1,000 mcg into the appropriate muscle every 30 (thirty) days. 0 Active Problems Active Problems Problem ClassificationProblemDateDocumented DateEpisodic/ChronicAbdominal pain (10 sources)Generalized abdominal pain; Translations: [Generalized abdominal pain]Onset: 887453-93-6525LfapbvxoKqydro of other female genital organs (20 sources)Vulval intraepithelial neoplasia grade 3; Translations: [Carcinoma in situ of vulva]Onset: 210239-77-6757HolzdbuQyivdxyf mellitus without complication (14 sources)Hyperglycemia; Translations: [Hyperglycemia, unspecified]Onset: 131687-29-8381LbqxpekmVneftyooju disorders (15 sources)Gastroesophageal reflux disease without esophagitis; Translations: [Gastro-esophageal reflux disease without esophagitis]Onset: 10-06-2016 80-04-3711OdtqxotMvzvqjiwf hypertension (15 sources)Hypertensive disorder; Translations: [Essential (primary) hypertension]Onset: 069362-88-3701FzaqkmaNzms and other crystal arthropathies (20 sources)Idiopathic gout, multiple sites; Translations: [Chronic primary gouty arthritis]Onset: 051424-10-4572SksficrJegezsg and fatigue (12 sources)Fatigue; Translations: [Other fatigue]Onset: EpisodicNutritional deficiencies (10 sources)Cobalamin deficiency; Translations: [Deficiency of other specified B group vitamins]Onset: 113027-09-6307XrrtwukuFryfxhgbpbycvk (11 sources)Primary generalized (osteo)arthritis; Translations: [Osteoarthritis] Onset: 655183-46-6960LiomkkhCctljardvsza (16 sources)Age-related osteoporosis without current pathological fracture; Translations: [Osteoporosis]Onset: 29-28-0247AjbsifqXdvbv aftercare (1 source)Other meterman (current) drug therapy; Translations: [OTH TERRAZZO JOURNEYMAN CURRENT DRUG THERAPY]Onset: 38-30-7046KprovxfgRviau connective tissue disease (10 sources)H/O: osteoarthritis; Translations: [Personal history of other diseases of the musculoskeletal system and connective tissue]Onset: 12-13-2023 27-45-1141SlwdpqutXpfmn connective tissue disease (1 source)Calcaneal spur; Translations: [Calcaneal spur, unspecified foot] 56-04-2557BxwtnkwnOsmru nervous system disorders (14 sources)Polyneuropathy; Translations: [Polyneuropathy, unspecified]Onset: 989481-30-7442NbakridZrdrh non-traumatic joint disorders (10 sources)Pain in left shoulder; Translations: [Pain in joint, shoulder region]Onset: 457398-69-6599KksfythmQuicm nutritional; endocrine; and metabolic disorders (15 sources)Body mass index 40+ - severely obese; Translations: [Body mass index (BMI) 45.0-49.9, adult]Onset: 597008-12-0224ZdiwxuyVgpzx nutritional; endocrine; and metabolic disorders (15 sources)Obesity caused by energy imbalance; Translations: [Morbid (severe) obesity due to excess calories]Onset: 577901-68-1699GkdchrfHdmeh upper respiratory disease (10 sources)Allergic rhinitis; Translations: [Allergic rhinitis, unspecified] Onset: 672568-58-1169OvtamcaPehdzxni codes; unclassified (15 sources)Edema of lower extremity; Translations: [Localized edema]Onset: 596044-89-0721XwcxkrxtMwqmekdb codes; unclassified (10 sources)Noncompliance with treatment; Translations: [Non-compliant patient] Onset: 666268-18-9967JeidveblVbjewuvvhw arthritis and related disease (20 sources)Rheumatoid arthritis with rheumatoid factor of multiple sites without organ or systems involvement;Translations: [Rheumatoid arthritis]Onset: 10-06-2016 Resolved: 19-02-0797TemtmjiCglzwmsgj-related disorders (17 sources)Smoker; Translations: [Nicotine dependence, unspecified, uncomplicated]Onset: 10-06-2016 Resolved: 366912-16-5593FgsldbbScwqvzh disorders (19 sources)Hypothyroidism, unspecified; Translations: [Hypothyroidism]Onset: 61-75-9227JprmlnpYsqyxwbdxkgs (1 source)Unknown / UNK(Unknown)Onset: 04-15-2018 Past or Other Problems Problem ClassificationProblemDateDocumented DateEpisodic/ChronicDiabetes mellitus without complication (9 sources)Type 2 diabetes mellitus without complication; Translations: [Type 2 diabetes mellitus without complications]Onset: 11-22-2023 Resolved: 392024-28-3465QiylwaaTckc disorders (9 sources)Mood disordersOnset: 12-13-2023 Resolved: Other connective tissue disease (9 sources)Calcaneal spur of left foot; Translations: [Calcaneal spur, left foot]Onset: 165735-04-4803CkpepsttMkmxw nutritional; endocrine; and metabolic disorders (9 sources)Morbid obesity; Translations: [Morbid (severe) obesity due to excess calories]Onset: 10-06-2016 Resolved: 418103-98-0032XnwokdoTuhgikpj codes; unclassified (11 sources)Tobacco user; Translations: [Tobacco use]Onset: 12-13-2023 Resolved: 705507-01-0654Gahvuxfh Results Test NameValueInterpretationReference RangeFacilityALL CBC WITH AUTO DIFFon 56-16-1015JOBTWEPGN ABSOLUTE MNVE5NHCH HealthcareBasophils/100 WBC (Bld)0.3 %0.2 - 2.0 %NOMFreeman Orthopaedics & Sports MedicineEosinophils/100 WBC (Bld)6.1 %0.9 - 7.0 %[facility] Erythrocyte distribution width (RBC) [Ratio]14.9 %11.0 - 15.0 %[facility] Hematocrit (Bld) [Volume fraction]46.7 %36.0 - 48.0 %[facility] HospitalHemoglobin (Bld) [Mass/Vol]15 g/dL12.0 - 16.0 g/dLNOUniversity of Missouri Health CareIMMATURE GRANULOCYTES ABS AUTO0.02NOUniversity of [place] Health CareImmature granulocytes/100 WBC (Bld)0.3 %0.0 - 0.5 %[facility] HospitalInterpretation and review of laboratory resultsAbnormalNOUniversity of [place] Health Care LYMPHOCYTES ABSOLUTE AUTO1.9NOUniversity of [place] Health CareLymphocytes/100 WBC (Bld)26 %20.5 - 60.0 %[facility] HospitalMCH (RBC) [Entitic mass]33.6 pg26.7 - 34.0 pgNOJefferson Memorial HospitalHC (RBC) [Mass/Vol]32.1 g/dL29.9 - 35.2 g/dLOzarks Community HospitalMCV (RBC) [Entitic vol]104.5 uFNubb62.0 - 99.0 fLNOUniversity of [place] Health CareMONOCYTES ABSOLUTE AUTO 0.6NOMS HealthcareMonocytes/100 WBC (Bld)7.5 %1.7 - 12.0 %[facility] NEUTROPHILS ABSOLUTE AUTO4.4NOUniversity of [place] Health CareNeutrophils/100 WBC (Bld)59.8 %43.0 - 75.0 %[facility] HospitalPlatelet mean volume (Bld) [Entitic vol]9 fLLow9.5 - 13.5 fLOzarks Community HospitalTBH EO #0.5NOMS [facility] [id number] [facility] RBC4.47 NOMSaint John's Hospital WBC7.3NOUniversity of [place] Health CareCLINISYNCNOMS HealthcareALL CBC WITH AUTO DIFFon 93-46-3663YSRGBFRID ABSOLUTE TRSD9EZEXUniversity of [place] Health CareBasophils/100 WBC (Bld)0.3 %0.2 - 2.0 %[facility] HospitalEosinophils/100 WBC (Bld)4.4 %0.9 - 7.0 % [facility] HospitalErythrocyte distribution width (RBC) [Ratio]14.6 %11.0 - 15.0 % [facility] HospitalHematocrit (Bld) [Volume fraction]47.5 %36.0 - 48.0 %[facility] HospitalHemoglobin (Bld) [Mass/Vol]15.3 g/dL12.0 - 16.0 g/dLOzarks Community Hospital IMMATURE GRANULOCYTES ABS AUTO0.03NOUniversity of [place] Health CareImkyture granulocytes/100 WBC (Bld)0.4 %0.0 - 0.5 %[facility] HospitalInterpretation and review of laboratory resultsAbnormalOzarks Community HospitalLYMPHOCYTES ABSOLUTE AUTO1.3NOUniversity of [place] [facility] Care Lymphocytes/100 WBC (Bld)15.8 %Low20.5 - 60.0 %[facility] CenterH (RBC) [Entitic mass]33.7 pg26.7 - 34.0 pgMissouri Baptist Medical CenterHC (RBC) [Mass/Vol]32.2 g/dL29.9 - 35.2 g/dLMissouri Baptist Medical CenterV (RBC) [Entitic vol]104.6 bFVeje47.0 - 99.0 fLOzarks Community HospitalMONOCYTES ABSOLUTE AUTO0.5NOUniversity of [place] Health CareMonocytes/100 WBC (Bld)6.4 % 1.7 - 12.0 %[facility] HospitalNEUTROPHILS ABSOLUTE AUTO5.8NOTN [facility] Neutrophils/100 WBC (Bld)72.7 %43.0 - 75.0 %[facility] HealthcarePlatelet mean volume (Bld) [Entitic vol]9.1 fLLow9.5 - 13.5 fLNOTN HealthcareTBH EO #0.4NOMS HealthcareTBH [id number] [facility] CenterTB RBC4.54NOMS [facility] CenterTB [id number] HealthcareCLINISYNCNOMS HealthcareMLR HEMOGLOBIN A1Con 19-69-3515Orubsdu [Mass/Vol]111 mg/dLNOUniversity of [place] Health CareCphfbacjvlAbN9z (Bld) [Mass fraction]5.5 %4.5 - 6.2 % [facility] HealthcareComment on above:ADA RECOMMENDED LIMIT 4.0 - 6.0 ADA THERAPEUTIC TARGET < 7.0 ACTION SUGGESTED > 7.0 CLINISYNCNOUniversity of [place] Health CareCBC AUTO DIFFon 17-19-7194EMAN #0.0 103/ulNormal0.0-0.1 [facility] HealthcareComment on above:Performed By: #### TSH #### [facility] [address] [place] [address] Dr. Marla VarnerBasophils/100 WBC (Bld)0.1 %Critically low0.2-2.0The [facility] WestComment on above:Performed By: #### TSH #### [facility] [address] [place] [address] Dr. Marla Velasquez #0.3 103/ulNormal0.0-0.7The [facility] WestComment on above: Performed By: #### TSH #### [facility] [address] [place] [address] Dr. Marla Schultzosinophils/100 WBC (Bld)4.6 %Normal0.9-7.0[facility] Comment on above:Performed By: #### TSH #### [facility] [address] [place] [address] Dr. Marla Schultzrythrocyte distribution width (RBC) [Ratio]14.6 %Cuglyw48.0-15.0 [facility] HealthcareComment on above:Performed By: #### TSH #### [facility] [address] [place] [address] Dr. Marla VarnerHematocrit (Bld) [Volume fraction]46.0 %Mgrkdz66.0-48.0The [facility] WestComment on above:Performed By: #### TSH #### [facility] [address] [place] [address] Dr. Marla VarnerHemoglobin (Bld) [Mass/Vol]15.1 g/tPJjhphj06.0-16.0The [facility] WestComment on above:Performed By: #### TSH #### [facility] [address] [place] [address] Dr. Marla VarnerIG #0.01 10e3/ulNormal0.00-0.03The [facility]Comup [facility] on above:Performed By: #### TSH #### [facility] [address] [place] [address] Dr. Marla VarnerIG %0.1 %Normal0.0-0.5The [facility] WestComment on above: Performed By: #### TSH #### [facility] [address] [place] [address] Dr. Marla Irby #1.3 103/ulNormal1.2-3.8The [facility]Com[facility] on above:Performed By: #### TSH #### [facility] [address] [place] [address] Dr. Marla Hydemphocytes/100 WBC (Bld)19.7 %Critically low20.5-60.0The [facility]Com[facility] on above:Performed By: #### TSH #### [facility] [address] [place] [address] Dr. Marla VarnerMANUAL DIFF REQNONormalThe [facility] WestComment on above: Performed By: #### TSH #### [facility] [address] [place] [address] Dr. Marla Townsend (RBC) [Entitic mass]33.6 xwKkwlqk05.7-34.0The [facility] WestComment on above:Performed By: #### TSH #### [facility] [address] [address] [address] Marla McgrathHC (RBC) [Mass/Vol]32.8 g/mMXzhhqy96.9-35.2The [facility] WestComment on above:Performed By: #### TSH #### [facility] [address] [place] [address] Dr. Marla McgrathV (RBC) [Entitic vol]102.4 fLCritically high81.0-99.0The [facility] WestComment on above:Performed By: #### TSH #### [facility] [address] [place] [address] Dr. Marla Morales #0.5 103/ulNormal0.3-0.8The [facility] WestComment on above:Performed By: #### TSH #### [facility] [address] [place] [address] Dr. Marla Messinaocytes/100 WBC (Bld)7.3 %Normal1.7-12.0The [facility] Comment on above:Performed By: #### TSH #### [facility] [address] [place] [address] Dr. Marla Dave #4.6 103/ulNormal1.4-6.5The [facility] WestComment on above:Performed By: #### TSH #### [facility] [address] [place] [address] Dr. Marla Mcallisterutrophils/100 WBC (Bld)68.2 %Filpjr69.0-75.0The [facility] WestComment on above:Performed By: #### TSH #### [facility] [address] [place] [address] Dr. Marla Obrienlet mean volume (Bld) [Entitic vol]9.1 fLCritically low 9.5-13.5The [facility] WestComment on above:Performed By: #### TSH #### [facility] [address] [place] [address] Dr. Marla VarnerPLT194 103/cmJbyupo321-567Izj [facility] WestComment on above: Performed By: #### TSH #### [facility] [address] [place] [address] Dr. Marla VarnerRBC4.49 106/ulNormal4.20-5.40The [facility] on above:Performed By: #### TSH #### [facility] [address] [place] [address] Dr. Marla VarnerWBC6.7 103/ulNormal4.0-11.0The [facility] Hospitalment on above: Performed By: #### TSH #### [facility] [address] [place] [address] Dr. Marla BeardF 14(COMP METB)on 40-05-2848Ufesbju [Mass/Vol]3.6 g/dLNormal 3.4-5.0The [facility] on above:Performed By: #### URIC, CMP #### [facility] [address] [place] [address] Dr. Marla VarnerAlbumin/Globulin [Mass ratio]1.0 {ratio}NormalThe [facility] on above:Performed By: #### URIC, CMP #### [facility] [address] [place] [address] Dr. Marla Bynum [Catalytic activity/Vol]93 U/GLwojxx53-313Iqq [facility] on above:Performed By: #### URIC, CMP #### [facility] [address] [place] [address] Dr. Marla Altamirano [Catalytic activity/Vol]26 U/SLfymtl44-51Zle [facility] on above:Performed By: #### URIC, CMP #### [facility] [address] [place] [address] Dr. Marla Rowell gap [Moles/Vol]12.3 mmol/LNormalThe [facility] on above:Performed By: #### URIC, CMP #### [facility] [address] [place] [address] Dr. Marla Reyes [Catalytic activity/Vol]20 U/LTppvwb27-83Htm [facility] HospitalComment on above:Performed By: #### URIC, CMP #### [facility] [address] [address] [address] Marla VarnerBilirubin [Mass/Vol]0.4 mg/dLNormal0.2-1.0The [facility] Comment on above:Performed By: #### URIC, CMP #### [facility] [address] [place] [address] Dr. Marla VarnerCalcium [Mass/Vol]9.2 mg/dLNormal8.5-10.1The [facility] Comment on above:Performed By: #### URIC, CMP #### [facility] [address] [place] [address] Dr. Marla VarnerChloride [Moles/Vol]102 mmol/SPluqsa87-319Pmm [facility] Comment on above:Performed By: #### URIC, CMP #### [facility] [address] [place] [address] Dr. Marla VarnerCO2 [Moles/Vol]32.3 mmol/LCritically high21.0-32.0The [facility] on above:Performed By: #### URIC, CMP #### [facility] [address] [place] [address] Dr. Marla VarnerCreatinine [Mass/Vol]0.84 mg/dLNormal0.55-1.02The [facility] on above:Performed By: #### URIC, CMP #### [facility] [address] [place] [address] Dr. Marla SchultzGFR-AF GREEK>60Normal>=60The [facility] on above:Performed By: #### URIC, CMP #### [facility] [address] [place] [address] Dr. Marla SchultzGFR-NON AF GREEK>60Normal>=60The [facility] on above:Performed By: #### URIC, CMP #### [facility] [address] [place] [address] Dr. Marla VarnerGlobulin (S) [Mass/Vol]3.7 g/dLNormalThe [facility] HospitalComment on above:Performed By: #### URIC, CMP #### [facility] [address] [address] [address] Marla VarnerGlucose [Mass/Vol]114 mg/dLCritically cjnt01-645Tth [facility] on above:Performed By: #### URIC, CMP #### [facility] [address] [place] [address] Dr. Marla VarnerPotassium [Moles/Vol]4.6 mmol/LNormal3.5-5.1The [facility] Comment on above:Performed By: #### URIC, CMP #### [facility] [address] [place] [address] Dr. Marla VarnerProtein [Mass/Vol]7.3 g/dLNormal6.4-8.2[facility] Comment on above:Performed By: #### URIC, CMP #### [facility] [address] [place] [address] Dr. Marla VarnerSodium [Moles/Vol]142 mmol/YEsvgut421-369Hvg [facility] Comment on above:Performed By: #### URIC, CMP #### [facility] [address] [place] [address] Dr. Marla VarnerUrea nitrogen [Mass/Vol]15.0 mg/dLNormal7.0-18.0The [facility] on above:Performed By: #### URIC, CMP #### [facility] [address] [place] [address] Dr. Marla Vital nitrogen/Creatinine [Mass ratio]17.9 mg/mgNoDayton Osteopathic HospitalComment on above:Performed By: #### URIC, CMP #### [facility] [address] [place] [address] Dr. Marla VarnerSED RATE WESTERGRENon 98-10-3475QVA RATE47 mm/hrCritically high <=30The [facility] on above:Performed By: #### SEDR #### [facility] [address] [place] [address] Dr. Marla Leavitt ACID SERUMon [id number] [Mass/Vol]3.3 mg/dLNormal 2.6-6.0The [facility] on above:Performed By: #### URIC, CMP #### [facility] [address] [place] [address] Dr. Marla Lowe AUTO DIFFon [id number] #0.0 103/ulNormal0.0-0.1The [facility]Comment on above:Performed By: #### INSULT #### [facility] [address] [place] [address] Dr. Marla VarnerBasophils/100 WBC (Bld)0.3 %Normal0.2-2.0The [facility] Comment on above:Performed By: #### INSULT #### [facility] [address] [place] [address] Dr. Gutiérrez ChangEO #0.4 103/ulNormal0.0-0.7The [facility] on above: Performed By: #### INSULT #### [facility] [address] [place] [address] Dr. Marla Schultzosinophils/100 WBC (Bld)5.8 %Normal0.9-7.0The [facility] Comment on above:Performed By: #### INSULT #### [facility] [address] [place] [address] Dr. Marla Schultzrythrocyte distribution width (RBC) [Ratio]14.8 %Bypcyg86.0-15.0 The [facility] on above:Performed By: #### INSULT #### [facility] [address] [place] [address] Dr. Marla VarnerHematocrit (Bld) [Volume fraction]44.4 %Cjrwfd03.0-48.0The [facility] on above:Performed By: #### INSULT #### [facility] [address] [place] [address] Dr. Marla VarnerHemoglobin (Bld) [Mass/Vol]14.6 g/wMXabcge68.0-16.0The [facility] HospitalComment on above:Performed By: #### INSULT #### [facility] [address] [address] [address] Marla Quezada #0.02 10e3/ulNormal0.00-0.03The [facility] on above:Performed By: #### INSULT #### [facility] [address] [place] [address] Dr. Marla Quezada %0.3 %Normal0.0-0.5The [facility] on above: Performed By: #### INSULT #### [facility] [address] [place] [address] Dr. Marla Irby #1.6 103/ulNormal1.2-3.8The [facility] on above:Performed By: #### INSULT #### [facility] [address] [place] [address] Dr. Marla Ibarrahocytes/100 WBC (Bld)21.6 %Smjthb03.5-60.0The [facility] on above:Performed By: #### INSULT #### [facility] [address] [place] [address] Dr. Marla TranUAL DIFF REQNONormalThe [facility] on above: Performed By: #### INSULT #### [facility] [address] [place] [address] Dr. Marla Mcgrath (RBC) [Entitic mass]33.8 jaKahtql11.7-34.0The [facility] on above:Performed By: #### INSULT #### [facility] [address] [place] [address] Dr. Marla Mcgrath (RBC) [Mass/Vol]32.9 g/kEHjdxiv18.9-35.2The [facility] on above:Performed By: #### INSULT #### [facility] [address] [place] [address] Dr. Marla Mcgrath (RBC) [Entitic vol]102.8 fLCritically high81.0-99.0The [facility] HospitalComment on above:Performed By: #### INSULT #### [facility] [address] [address] [address] Marla Morales #0.5 103/ulNormal0.3-0.8The [facility] on above:Performed By: #### INSULT #### [facility] [address] [address] [address] Marla Messinaocytes/100 WBC (Bld)6.9 %Normal1.7-12.0The [facility] Comment on above:Performed By: #### INSULT #### [facility] [address] [place] [address] Dr. Marla Dave #4.7 103/ulNormal1.4-6.5The [facility] on above:Performed By: #### INSULT #### [facility] [address] [place] [address] Dr. Marla Mcallisterutrophils/100 WBC (Bld)65.1 %Mdemlv90.0-75.0The [facility]Comment on above:Performed By: #### INSULT #### [facility] [address] [place] [address] Dr. Marla Walden mean volume (Bld) [Entitic vol]9.3 fLCritically low 9.5-13.5The [facility] on above:Performed By: #### INSULT #### [facility] [address] [place] [address] Dr. Marla VarnerPLT200 103/klXpaiqa585-598Kyr [facility] on above: Performed By: #### INSULT #### [facility] [address] [place] [address] Dr. Marla VarnerRBC4.32 106/ulNormal4.20-5.40The [facility] on above:Performed By: #### INSULT #### [facility] [address] [place] [address] Dr. Marla VarnerWBC7.2 103/ulNormal4.0-11.0The [facility] on above: Performed By: #### INSULT #### [facility] [address] [place] [address] Dr. Marla Love T3on 47-62-4031MNQB T32.20 pg/mlLNormal2.18-3.98The [facility] on above:Performed By: #### TSH #### [facility] [address] [place] [address] Dr. Marla Love T4on 49-73-2784Kzwh T4 [Mass/Vol]1.30 ng/dLNormal0.76-1.46 The [facility] on above:Performed By: #### TSH #### [facility] [address] [place] [address] Dr. Marla Solis 14(COMP METB)on 59-86-2922Hqhihdn [Mass/Vol]3.4 g/dLNormal 3.4-5.0The [facility] on above:Performed By: #### CMP, URIC #### [facility] [address] [place] [address] Dr. Marla VarnerAlbumin/Globulin [Mass ratio]0.9 {ratio}NormalThe [facility] Hospitalment on above:Performed By: #### CMP, URIC #### [facility] [address] [place] [address] Dr. Marla Bynum [Catalytic activity/Vol]92 U/YBnsgwp17-567Tut [facility]ment on above:Performed By: #### CMP, URIC #### [facility] [address] [place] [address] Dr. Marla Altamirano [Catalytic activity/Vol]17 U/NMlbzbz44-11Qpa [facility]ment on above:Performed By: #### CMP, URIC #### [facility] [address] [place] [address] Dr. Marla Rowell gap [Moles/Vol]10.7 mmol/LNormalThe [facility] on above:Performed By: #### CMP, URIC #### [facility] [address] [address] [address] Marla VarnerAST [Catalytic activity/Vol]17 U/JDznflb08-19Sbr [facility] on above:Performed By: #### CMP, URIC #### [facility] [address] [address] [address] Marla VarnerBilirubin [Mass/Vol]0.4 mg/dLNormal0.2-1.0The [facility] Comment on above:Performed By: #### CMP, URIC #### [facility] [address] [place] [address] Dr. Marla VarnerCalcium [Mass/Vol]8.8 mg/dLNormal8.5-10.1The [facility] Comment on above:Performed By: #### CMP, URIC #### [facility] [address] [place] [address] Dr. Marla VarnerChloride [Moles/Vol]101 mmol/KOnoapg66-061Uje [facility] Comment on above:Performed By: #### CMP, URIC #### [facility] [address] [place] [address] Dr. Marla VarnerCO2 [Moles/Vol]32.5 mmol/LCritically high21.0-32.0The [facility] on above:Performed By: #### CMP, URIC #### [facility] [address] [place] [address] Dr. Marla VarnerCreatinine [Mass/Vol]0.72 mg/dLNormal0.55-1.02The [facility] on above:Performed By: #### CMP, URIC #### [facility] [address] [place] [address] Dr. Marla SchultzGFR-AF GREEK>60Normal>=60The [facility] on above:Performed By: #### CMP, URIC #### [facility] [address] [place] [address] Dr. Marla SchultzGFR-NON AF GREEK>60Normal>=60The [facility] on above:Performed By: #### CMP, URIC #### [facility] [address] [address] [address] Marla VarnerGlobulin (S) [Mass/Vol]3.8 g/dLNormFirelands Regional Medical Center South CampusComment on above:Performed By: #### CMP, URIC #### [facility] [address] [address] [address] Marla VarnerGlucose [Mass/Vol]101 mg/zQMekyrh16-039Xuu [facility] Comment on above:Performed By: #### CMP, URIC #### [facility] [address] [address] [address] Marla VarnerPotassium [Moles/Vol]4.2 mmol/LNormal3.5-5.1The [facility] Comment on above:Performed By: #### CMP, URIC #### [facility] [address] [address] [address] Marla VarnerProtein [Mass/Vol]7.2 g/dLNormal6.4-8.2The [facility] Comment on above:Performed By: #### CMP, URIC #### [facility] [address] [address] [address] Marla VarnerSodium [Moles/Vol]140 mmol/QJkfwge978-851Anl [facility] Comment on above:Performed By: #### CMP, URIC #### [facility] [address] [address] [address] Marla VarnerUrea nitrogen [Mass/Vol]11.0 mg/dLNormal7.0-18.0The [facility] on above:Performed By: #### CMP, URIC #### [facility] [address] [address] [address] Marla Vital nitrogen/Creatinine [Mass ratio]15.3 mg/mgNoDayton Osteopathic HospitalComment on above:Performed By: #### CMP, URIC #### [facility] [address] [address] [address] Marla Noel RATE WESTERGRENon 89-90-7361MCD RATE51 mm/hrCritically high <=30The [facility]Comment on above:Performed By: #### SEDR #### [facility] [address] [place] [address] Dr. Marla PattonHocharlene 92-34-2716SMH7.307 uIU/mLNormal0.358-3.740The [facility] WestComment on above:Performed By: #### TSH #### [facility] [address] [place] [address] Dr. Marla VarnerURIC ACID SERUMon 18-39-1267Scxgk [Mass/Vol]3.2 mg/dLNormal 2.6-6.0The [facility] on above:Performed By: #### CMP, URIC #### [facility] [address] [place] [address] Dr. Marla VarnerINSULIN FREE AND TOTALon 95-04-1886Terd Sccmpld81 uU/mLNormalKindred HealthcareComment on above:Result Comment: Reference Range: Pubertal Children and Adults (fasting): 0 - 17Performed By: #### INSULT #### [facility] [address] [place] [address] Dr. Marla VarnerTotal Rzctexn86 uU/mLNormalKindred HealthcareComup health system on above: Result Comment: Non-Diabetic: In the [...] developed and its performance characteristics determined by [employer]. It has not been cleared or approved by the Food and Drug Administration.Performed By: #### INSULT #### [facility] [address] [place] [address] Dr. Marla VarnerCBC AUTO DIFFon [id number] #0.0 103/ulNormal0.0-0.1The [facility] on above:Performed By: #### TSH #### [facility] [address] [address] [address] Marla VarnerBasophils/100 WBC (Bld)0.3 %Normal0.2-2.0The [facility] Comment on above:Performed By: #### TSH #### [facility] [address] [address] [address] Marla Velasquez #0.2 103/ulNormal0.0-0.7The [facility] on above: Performed By: #### TSH #### [facility] [address] [place] [address] Dr. Marla Schultzosinophils/100 WBC (Bld)2.7 %Normal0.9-7.0The [facility] Comment on above:Performed By: #### TSH #### [facility] [address] [place] [address] Dr. Marla Schultzrythrocyte distribution width (RBC) [Ratio]14.8 %Cdvvay83.0-15.0 The [facility]Comment on above:Performed By: #### TSH #### [facility] [address] [place] [address] Dr. Marla VarnerHematocrit (Bld) [Volume fraction]47.6 %Vkpdfx10.0-48.0The [facility] on above:Performed By: #### TSH #### [facility] [address] [place] [address] Dr. Marla VarnerHemoglobin (Bld) [Mass/Vol]15.4 g/lBVzzmsp04.0-16.0The [facility]Comment on above:Performed By: #### TSH #### [facility] [address] [place] [address] Dr. Marla Quezada #0.03 10e3/ulNormal0.00-0.03The [facility] on above:Performed By: #### TSH #### [facility] [address] [place] [address] Dr. Marla Quezada %0.4 %Normal0.0-0.5The [facility] on above: Performed By: #### TSH #### [facility] [address] [address] [address] Marla Irby #1.6 103/ulNormal1.2-3.8The [facility] on above:Performed By: #### TSH #### [facility] [address] [place] [address] Dr. Marla Ibarrahocytes/100 WBC (Bld)21.1 %Lvuaqv89.5-60.0The [facility] on above:Performed By: #### TSH #### [facility] [address] [place] [address] Dr. Marla Rivas DIFF REQNONormalThe [facility] on above: Performed By: #### TSH #### [facility] [address] [place] [address] Dr. Marla Mcgrath (RBC) [Entitic mass]34.2 pgCritically high26.7-34.0The [facility] on above:Performed By: #### TSH #### [facility] [address] [place] [address] Dr. Marla Mcgrath (RBC) [Mass/Vol]32.4 g/jQOikqad01.9-35.2The [facility] on above:Performed By: #### TSH #### [facility] [address] [place] [address] Dr. Marla Mcgrath (RBC) [Entitic vol]105.8 fLCritically high81.0-99.0The [facility] on above:Performed By: #### TSH #### [facility] [address] [place] [address] Dr. Marla Morales #0.5 103/ulNormal0.3-0.8The [facility] on above:Performed By: #### TSH #### [facility] [address] [place] [address] Dr. Marla Messinaocytes/100 WBC (Bld)7.4 %Normal1.7-12.0The [facility] Comment on above:Performed By: #### TSH #### [facility] [address] [place] [address] Dr. Marla McallisterUT #5.0 103/ulNormal1.4-6.5The [facility]Comment on above:Performed By: #### TSH #### [facility] [address] [place] [address] Dr. Marla Mcallisterutrophils/100 WBC (Bld)68.1 %Ftckjf97.0-75.0The [facility] WestComment on above:Performed By: #### TSH #### [facility] [address] [place] [address] Dr. Marla Walden mean volume (Bld) [Entitic vol]10.5 fLNormal9.5-13.5The [facility]Comment on above:Performed By: #### TSH #### [facility] [address] [place] [address] Dr. Marla VarnerPLT207 103/ouHcybpr476-984Bcz [facility]Comment on above: Performed By: #### TSH #### [facility] [address] [place] [address] Dr. aMrla VarnerRBC4.50 106/ulNormal4.20-5.40The [facility] WestComment on above:Performed By: #### TSH #### [facility] [address] [place] [address] Dr. Marla VarnerWBC7.3 103/ulNormal4.0-11.0The [facility] WestComment on above: Performed By: #### TSH #### [facility] [address] [place] [address] Dr. Marla Love T4on 00-49-2169Ogsb T4 [Mass/Vol]1.75 ng/dLCritically high 0.76-1.46The [facility]Comment on above:Performed By: #### TSH #### [facility] [address] [place] [address] Dr. Yilan ChangPROF 14(COMP METB)on 01-44-6122Tbageaj [Mass/Vol]3.7 g/dLNormal 3.4-5.0The [facility]Comment on above:Performed By: #### INSULT #### [facility] [address] [place] [address] Dr. Marla VarnerAlbumin/Globulin [Mass ratio]1.0 {ratio}NormalThe [facility] WestComment on above:Performed By: #### INSULT #### [facility] [address] [place] [address] Dr. Marla GarcíaP [Catalytic activity/Vol]99 U/QQqtbqy40-138Zgr [facility] WestComment on above:Performed By: #### INSULT #### [facility] [address] [place] [address] Dr. Marla GarcíaT [Catalytic activity/Vol]25 U/GPhgxbw28-03Jcr [facility] WestComment on above:Performed By: #### INSULT #### [facility] [address] [place] [address] Dr. Marla Farraron gap [Moles/Vol]15.7 mmol/LNormalThe [facility] Comment on above:Performed By: #### INSULT #### [facility] [address] [place] [address] Dr. Marla VarnerAST [Catalytic activity/Vol]20 U/EMxjgxz32-05Dfo [facility] WestComment on above:Performed By: #### INSULT #### [facility] [address] [place] [address] Dr. Marla VarnerBilirubin [Mass/Vol]0.4 mg/dLNormal0.2-1.0The [facility] Comment on above:Performed By: #### INSULT #### [facility] [address] [place] [address] Dr. Marla VarnerCalcium [Mass/Vol]8.9 mg/dLNormal8.5-10.1The [facility] Comment on above:Performed By: #### INSULT #### [facility] [address] [place] [address] Dr. Marla VarnerChloride [Moles/Vol]99 mmol/NKpxyez43-357Nny [facility] Comment on above:Performed By: #### INSULT #### [facility] [address] [place] [address] Dr. Marla VarnerCO2 [Moles/Vol]25.3 mmol/QYtpwjb08.0-32.0The [facility] Comment on above:Performed By: #### INSULT #### [facility] [address] [place] [address] Dr. Marla VarnerCreatinine [Mass/Vol]0.80 mg/dLNormal0.55-1.02The [facility] WestComment on above:Performed By: #### INSULT #### [facility] [address] [place] [address] Dr. Marla SchultzGFR-AF GREEK>60Normal>=60The [facility] WestComment on above:Performed By: #### INSULT #### [facility] [address] [place] [address] Dr. Marla SchultzGFR-NON AF GREEK>60Normal>=60The [facility] WestComment on above:Performed By: #### INSULT #### [facility] [address] [place] [address] Dr. Marla VarnerGlobulin (S) [Mass/Vol]3.6 g/dLNormalThe [facility] WestComment on above:Performed By: #### INSULT #### [facility] [address] [place] [address] Dr. Marla VarnerGlucose [Mass/Vol]113 mg/dLCritically clzm96-812Kyj [facility] WestComment on above:Performed By: #### INSULT #### [facility] [address] [place] [address] Dr. Marla VarnerPotassium [Moles/Vol]4.0 mmol/LNormal3.5-5.1The [facility] Comment on above:Performed By: #### INSULT #### [facility] [address] [place] [address] Dr. Marla VarnerProtein [Mass/Vol]7.3 g/dLNormal6.4-8.2The [facility] Comment on above:Performed By: #### INSULT #### [facility] [address] [place] [address] Dr. Marla VarnerSodium [Moles/Vol]136 mmol/VAksong304-865Qjp [facility] Comment on above:Performed By: #### INSULT #### [facility] [address] [place] [address] Dr. Marla VarnerUrea nitrogen [Mass/Vol]10.0 mg/dLNormal7.0-18.0The [facility]Comment on above:Performed By: #### INSULT #### [facility] [address] [place] [address] Dr. Marla Vital nitrogen/Creatinine [Mass ratio]12.5 mg/mgNormalThe [facility] WestComment on above:Performed By: #### INSULT #### [facility] [address] [place] [address] Dr. Marla Noel RATE WESTERGRENon 64-30-6308CQN RATE34 mm/hrCritically high <=30The [facility] WestComment on above:Performed By: #### TSH #### [facility] [address] [place] [address] Dr. Marla Joyce 77-96-3567FQP0.152 uIU/mLCritically low0.358-3.740The [facility] WestComment on above:Performed By: #### TSH #### [facility] [address] [place] [address] Dr. Marla VarnerURIC ACID SERUMon 65-27-6540Lajul [Mass/Vol]3.3 mg/dLNormal 2.6-6.0The [facility]Comment on above:Performed By: #### INSULT #### [facility] [address] [place] [address] Dr. Marla Lowe AUTO DIFFon 63-34-7841WWNX #0.0 103/ulNormal0.0-0.1The [facility]Comment on above:Performed By: #### TSH #### [facility] [address] [place] [address] Dr. Marla VarnerBasophils/100 WBC (Bld)0.1 %Critically low0.2-2.0The [facility] on above:Performed By: #### TSH #### [facility] [address] [place] [address] Dr. Marla Velasquez #0.4 103/ulNormal0.0-0.7The [facility] on above: Performed By: #### TSH #### [facility] [address] [place] [address] Dr. Marla Schultzosinophils/100 WBC (Bld)5.1 %Normal0.9-7.0The [facility] Comment on above:Performed By: #### TSH #### [facility] [address] [place] [address] Dr. Marla Schultzrythrocyte distribution width (RBC) [Ratio]14.5 %Xkygyc91.0-15.0 The [facility]Comment on above:Performed By: #### TSH #### [facility] [address] [place] [address] Dr. Marla VarnerHematocrit (Bld) [Volume fraction]45.7 %Vyuutl00.0-48.0The [facility] on above:Performed By: #### TSH #### [facility] [address] [place] [address] Dr. Marla VarnerHemoglobin (Bld) [Mass/Vol]14.6 g/sIFxpdag36.0-16.0The [facility] on above:Performed By: #### TSH #### [facility] [address] [place] [address] Dr. Marla Quezada #0.03 10e3/ulNormal0.00-0.03The [facility] WestComment on above:Performed By: #### TSH #### [facility] [address] [place] [address] Dr. Marla Quezada %0.4 %Normal0.0-0.5The [facility]Comment on above: Performed By: #### TSH #### [facility] [address] [address] [address] Marla Irby #0.9 103/ulCritically low1.2-3.8The [facility] Comment on above:Performed By: #### TSH #### [facility] [address] [address] [address] Marla Ibarrahocytes/100 WBC (Bld)11.3 %Critically low20.5-60.0The [facility] WestComment on above:Performed By: #### TSH #### [facility] [address] [address] [address] Marla Rivas DIFF REQNONormalThe [facility] WestComment on above: Performed By: #### TSH #### [facility] [address] [place] [address] Dr. Marla Mcgrath (RBC) [Entitic mass]33.4 qvKycfji37.7-34.0The [facility]Comment on above:Performed By: #### TSH #### [facility] [address] [place] [address] Dr. Marla Mcgrath (RBC) [Mass/Vol]31.9 g/uJOajxxs49.9-35.2The [facility]Comment on above:Performed By: #### TSH #### [facility] [address] [place] [address] Dr. Marla Mcgrath (RBC) [Entitic vol]104.6 fLCritically high81.0-99.0The [facility] WestComment on above:Performed By: #### TSH #### [facility] [address] [address] [address] Marla Morales #0.3 103/ulNormal0.3-0.8The [facility]Comment on above:Performed By: #### TSH #### [facility] [address] [place] [address] Dr. Marla Messinaocytes/100 WBC (Bld)3.9 %Normal1.7-12.0The [facility] Comment on above:Performed By: #### TSH #### [facility] [address] [address] [address] Marla Dave #6.1 103/ulNormal1.4-6.5The [facility] WestComment on above:Performed By: #### TSH #### [facility] [address] [place] [address] Dr. Marla Mcallisterutrophils/100 WBC (Bld)79.2 %Critically high43.0-75.0The [facility] WestComment on above:Performed By: #### TSH #### [facility] [address] [place] [address] Dr. Marla VarnerPlatelet mean volume (Bld) [Entitic vol]10.4 fLNormal9.5-13.5The [facility] WestComment on above:Performed By: #### TSH #### [facility] [address] [place] [address] Dr. Marla VarnerPLT195 103/mgXnsrkc908-813Oik [facility]Comment on above: Performed By: #### TSH #### [facility] [address] [place] [address] Dr. Marla VarnerRBC4.37 106/ulNormal4.20-5.40The [facility] Hospitalment on above:Performed By: #### TSH #### [facility] [address] [place] [address] Dr. Marla VarnerWBC7.7 103/ulNormal4.0-11.0The [facility]Comment on above: Performed By: #### TSH #### [facility] [address] [place] [address] Dr. Marla VarnerPROF 14(COMP METB)on 55-51-8720Iwwgcym [Mass/Vol]3.3 g/dL Critically low3.4-5.0The [facility]Comment on above:Performed By: #### URIC, CMP #### [facility] [address] [place] [address] Dr. Yilan ChangAlbumin/Globulin [Mass ratio]0.8 {ratio}NormalThe [facility] WestComment on above:Performed By: #### URIC, CMP #### [facility] [address] [place] [address] Dr. Marla Bynum [Catalytic activity/Vol]97 U/YTsljuz87-678Xsj [facility] WestComment on above:Performed By: #### URIC, CMP #### [facility] [address] [place] [address] Dr. Marla Altamirano [Catalytic activity/Vol]26 U/HAjpoyk38-69Paw [facility] WestComment on above:Performed By: #### URIC, CMP #### [facility] [address] [place] [address] Dr. Marla Rowell gap [Moles/Vol]18.0 mmol/LNormalThe [facility] Comment on above:Performed By: #### URIC, CMP #### [facility] [address] [place] [address] Dr. Marla Reyes [Catalytic activity/Vol]17 U/DHylesb17-11Orj [facility] Hospitalment on above:Performed By: #### URIC, CMP #### [facility] [address] [place] [address] Dr. Marla VarnerBilirubin [Mass/Vol]0.5 mg/dLNormal0.2-1.0The [facility] Comment on above:Performed By: #### URIC, CMP #### [facility] [address] [place] [address] Dr. Marla VarnerCalcium [Mass/Vol]8.8 mg/dLNormal8.5-10.1[facility] Comment on above:Performed By: #### URIC, CMP #### [facility] [address] [place] [address] Dr. Marla VarnerChloride [Moles/Vol]100 mmol/LXyiddl97-418Zxd [facility] Comment on above:Performed By: #### URIC, CMP #### [facility] [address] [place] [address] Dr. Marla VarnerCO2 [Moles/Vol]25.3 mmol/REsqchy48.0-32.0The [facility] Comment on above:Performed By: #### URIC, CMP #### [facility] [address] [place] [address] Dr. Marla VarnerCreatinine [Mass/Vol]0.95 mg/dLNormal0.55-1.02The [facility] WestComment on above:Performed By: #### URIC, CMP #### [facility] [address] [address] [address] Marla SchultzGFR-AF GREEK>60Normal>=60The [facility] WestComment on above:Performed By: #### URIC, CMP #### [facility] [address] [place] [address] Dr. Marla SchultzGFR-NON AF AK[place]73 mL/min/1.02f0Cnssbtyzlc low>=60The [facility]Comment on above:Performed By: #### URIC, CMP #### [facility] [address] [place] [address] Dr. Marla VarnerGlobulin (S) [Mass/Vol]3.9 g/dLNormalThe [facility] WestComment on above:Performed By: #### URIC, CMP #### [facility] [address] [place] [address] Dr. Marla VarnerGlucose [Mass/Vol]253 mg/dLCritically ueqz44-494Zas [facility]Comment on above:Performed By: #### URIC, CMP #### [facility] [address] [place] [address] Dr. Marla VarnerPotassium [Moles/Vol]4.3 mmol/LNormal3.5-5.1The [facility] Comment on above:Performed By: #### URIC, CMP #### [facility] [address] [place] [address] Dr. Marla VarnerProtein [Mass/Vol]7.2 g/dLNormal6.4-8.2The [facility] Comment on above:Performed By: #### URIC, CMP #### [facility] [address] [place] [address] Dr. Marla Dowdium [Moles/Vol]139 mmol/JTcwxea422-831Iiw [facility] Comment on above:Performed By: #### URIC, CMP #### [facility] [address] [place] [address] Dr. Marla Vital nitrogen [Mass/Vol]13.0 mg/dLNormal7.0-18.0The [facility]Comment on above:Performed By: #### URIC, CMP #### [facility] [address] [place] [address] Dr. Marla Vital nitrogen/Creatinine [Mass ratio]13.6 mg/mgNormalThe [facility] WestComment on above:Performed By: #### URIC, CMP #### [facility] [address] [place] [address] Dr. Marla Noel RATE WESTERGRENon 20-96-7311GNA RATE35 mm/hrCritically high <=30The [facility] WestComment on above:Performed By: #### TSH #### [facility] [address] [place] [address] Dr. Marla Leavitt ACID SERUMon 77-36-5783Lyjnf [Mass/Vol]3.6 mg/dLNormal 2.6-6.0The [facility]Comment on above:Performed By: #### URIC, CMP #### [facility] [address] [place] [address] Dr. Marla VarnerXR DEXA BONE DENSITYon 17-13-4557IH DEXA BONE DENSITYEXAMINATION: XR DEXA BONE DENSITY, [...] Electronically authenticated by: KALEIGH SUTHERLAND Date: 2022-01-19 11:23[facility] HospitalCNOVSPon 16-44-8576LAYQSWMfbir (SP) Office (GYNOSA) --------EUNICE CASTILLO ([id number]) 1950 FDate Time Provider Department10/21/18 10:40 AM [...] this office note were sent to:[place] [address]?CC:Yimi Montemayor DO (PCP)Referring Provider: BLAINE THOMPSON [[id number]]Allergies As of Date: 10/21/2018 Noted Allergy ReactionPENICILLINS [...] (VIT B-12) 1,0* Inject 1,000 mcg intramuscula* [id number] MG CAPSULE Take 100 mg by mouth [...] More...Encounter Status:Closed by BLAINE THOMPSON MD on 10/23/18NoLuther[facility] Hospitalon 06-40-9438Lfgpgkw mass conc HNO ID: [id number]: Blaine Maldonadoervice: (none)Author Type: PhysicianType: Progress NotesFiled: [...] this office note were sent to:[place] [address]?CC:Yimi Montemayor DO (PCP)NormalParkwood HospitalCNOVon 82-13-1731MXUYGjmdfj Visit (GYNOSA) --------EUNICE CASTILLO ([id number]) 1950 FDate Time Provider Department04/15/18 8:00 AM [...] I advised her to follow with her image consultant f or routine health and gynmaintenance exams3. I will see her in 6 monthsBlaine Thompson MD, MPH25 min spent with the patient with >50% face to face counselingA letter and a copy of this office note were sent to:[place] [address]?CC:Yimi Montemayor DO (PCP)Referring Provider: BLAINE THOMPSON [[id number]]Allergies As of Date: 04/15/2018 Noted Allergy ReactionPENICILLINS [...] More... Status:Closed by BLAINE THOMPSON MD on 04/15/18[facility] 18-10-3281Tzbfxfk mass concHNO ID: [id number]: Blaine Maldonadoervice: (none)Author Type: PhysicianType: Progress NotesFiled: [...] I advised her to follow with her image consultant for routine health andgyn maintenance exams3. I will see her in 6 monthsBlaine Thompson MD, MPH25 min spent with the patient with >50% face to face counselingA letter and a copy of this office note were sent to:[place] [address]?CC:Yimi Montemayor DO (PCP)NormalParkwood Hospital Vital Signs Date TimeVital SignValuePerforming FxjunzmtdOiyqbtlx09-17-4827 10:59-0400Body rozeip135.1 Donna LARA Work Phone: [facility]09-29-2025 10:59-0400 Body mass index (BMI) [Ratio]40.4 kg/m2Lisa Milton LARA Work Phone: [facility]09-29-2025 10:59-0400 Body srggbkfjygn39.7 [degF]Brunilda Aichholz SECURITY SPECIALIST-C Work Phone: [phone] [place], [place] [address]309-29-2025 10:59-0400 Body pachqt261.27 kgLisa Aichholz SECURITY SPECIALIST-C Work Phone: [phone] [place], [place] 3845309-29-2025 10:59-0400 Diastolic blood ieltmtlb85 mm[Hg]Brunilda Aichholz SECURITY SPECIALIST-C Work Phone: [phone]09-29-2025 10:59-0400 Heart rate63 /minLisa Aichholz SECURITY SPECIALIST-C Work Phone: [phone]09-29-2025 10:59-0400 Respiratory rate18 /minLisa Aichholz SECURITY SPECIALIST-C Work Phone: [phone] [place], [place] 38[address]309-29-2025 10:59-0400 SaO2% (BldA) [Mass fraction]97 %Brunilda Aichholz SECURITY SPECIALIST-C Work Phone: [phone] [place], [place] 3845309-29-2025 10:59-0400 Systolic blood wszhieko993 mm[Hg]Brunilda Aichholz SECURITY SPECIALIST-C Work Phone: [phone] [place], [place] 3845303-05-2025 10:30-0500 Body vwnrow631.6 cmLisa Aichholz SECURITY SPECIALIST Work Phone: [facility] HospitalJqqmkzubvo39-20-1584 10:30-0500Body mass index (BMI) [Ratio]41.95 kg/m2Lisa Aichholz SECURITY SPECIALIST Work Phone: [facility] HospitalEckhtsxtfe12-18-6953 10:30-0500Body temperature 98.29 [degF]Brunilda Aichholz SECURITY SPECIALIST Work Phone: [facility] HospitalIkzvpugstz74-23-6132 10:30-0500Body hnxabw136.86 kgLisa Aichholz SECURITY SPECIALIST Work Phone: [facility] HospitalEnuofftjzr70-46-6835 10:30-0500Diastolic blood sysrnqmv27 mm[Hg]Brunilda Deonholz SECURITY SPECIALIST Work Phone: [facility] HospitalYsnkimncog89-33-9406 10:30-0500Heart rate74 /min Brunilda Deonholz SECURITY SPECIALIST Work Phone: [facility] HospitalFekkcngyuo51-06-9559 10:30-0500Respiratory rate22 /minLisa Deonholz SECURITY SPECIALIST Work Phone: [facility] HospitalXsbtasgyay75-34-0201 10:30-7837IlX8% (BldA) [Mass fraction]95 %Brunilda Deonholz SECURITY SPECIALIST Work Phone: [facility] HospitalWujfpuktgj39-72-6687 10:30-0500Systolic blood cfkmdhox288 mm[Hg]Brunilda Deonholz SECURITY SPECIALIST Work Phone: [facility] HospitalPmpkeuthyz14-69-2930 09:17-0400Body mass index (BMI) [Ratio]41.76 kg/m2Lianasa Deonholz SECURITY SPECIALIST Work Phone: [facility] HospitalHmwvcwgdxv89-63-2656 09:17-0400Body temperature 97.3 [degF]Brunilda Deonholz SECURITY SPECIALIST Work Phone: [facility] HospitalAmtlhrqpgj14-43-5824 09:17-0400Body gwedew220.36 kgLianasa Deonholz SECURITY SPECIALIST Work Phone: [facility] HospitalQzemiiwhnu72-97-5362 09:17-0400Diastolic blood uwzytppe98 mm[Hg]Brunilda Deonholz SECURITY SPECIALIST Work Phone: [address] [address]Xupftwmbed90-61-2224 09:17-0400Heart rate79 /min Brunilda Ramseyhholz SECURITY SPECIALIST Work Phone: [address] [address]Ierbcrjtnd49-21-8311 09:17-0602OsR1% (BldA) [Mass fraction]94 %Brunilda Ramseyhholz SECURITY SPECIALIST Work Phone: [address] [address]Lcxawnnrdo69-45-9248 09:17-0400Systolic blood yljqujee804 mm[Hg]Brunilda Milton SECURITY SPECIALIST Work Phone: [facility] Encounters Encounter DateEncounter TypeCare ProviderFacilityStart: 07-16-2025 End: 77-43-6270ievyesfstdRpob J Aichholz SECURITY SPECIALIST-C Work Phone: [facility] Work Phone: Start: 07-16-2025 End: 37-79-0448Gfmdbzy encounter procedureBrunilda Rose SECURITY SPECIALIST-C-FPG [facility] [place] Work Phone: Start: 91-43-3480Vxkbapo encounter procedureBrunilda Rose SECURITY SPECIALIST-C Work Phone: [facility] Centertart: 01-23-2025 End: 30-31-0403Camgcnoau Result EncounterGeneric External Data ProviderNOMS External Department UnsolicitedStart: 01-23-2025 End: 34-32-1314Cbeidtufp Result EncounterGeneric External Data ProviderNOMS External Department UnsolicitedStart: 12-20-2024 End: 65-77-7658Nrrxro flowsMargot Rose SECURITY SPECIALIST Work Phone: [facility] CW FMStart: 12-20-2024 End: 20-90-8335Pfziql flowsMargot Rose SECURITY SPECIALIST Work Phone: [facility] FMStart: 12-20-2024 End: 47-56-2660Wtqgswh encounter procedureLiana Milton SECURITY SPECIALIST Work Phone: [facility] FMComment on above:Encounter for subsequent annual wellness [...] Cigarette nicotine dependence without complicationStart: 12-20-2024 End: 95-33-2099nzurdedjvtYGRQ KINZAot AvailableStart: 10-16-2024 End: 06-96-5197Qdumbscbh Result EncounterGeneric External Data ProviderNOMS External Department UnsolicitedStart: 10-16-2024 End: 76-65-4181Jeetomugu Result EncounterGeneric External Data ProviderNOMS External Department UnsolicitedStart: 06-22-2024 End: 63-08-1309Zspzcbedv Result EncounterLisa Chavarriatign SECURITY SPECIALIST Work Phone: [facility] External Department UnsolicitedStart: 06-22-2024 End: 66-62-4893Lzqnzbwsx Result EncounterLisa Chavarriafrankiez SECURITY SPECIALIST Work Phone: [facility] External Department UnsolicitedStart: 06-12-2024 End: 74-20-8982Vdfpgr flowsheetBrunilda Chavarriaholz SECURITY SPECIALIST Work Phone: noms [facility] FMStart: 06-12-2024 End: 16-90-9983Msymlg flowsheetBrunilda Chavarriaholz SECURITY SPECIALIST Work Phone: [facility] CW FMStart: 06-12-2024 End: 26-33-1036Thcrpe outpatient visit 25 minutesLisa Chavarriaholz SECURITY SPECIALIST Work Phone: noms [facility] FMComment on above:Primary hypertension (CMS/HCC) (Primary Dx); Morbid (severe) obesity due to excess calories (CMS/HCC); Body mass index (BMI) 40.0-44.9, adult (CMS/HCC); Malignant neoplasm of vagina (CMS/HCC); Gastroesophageal reflux disease without esophagitis; Lower extremity edema; Hypothyroidism, unspecified type (CMS/HCC); Tobacco user; Hyperglycemia; Polyneuropathy; Rheumatoid arthritis with positive rheumatoid factor, involving unspecified site ([facility]); Other fatigueStart: 06-12-2024 End: 30-07-4950cfdfuxyelzWMQO JUAREZZNot AvailableStart: 86-97-4312Bqrtupg encounter procedureLisa Rose SECURITY SPECIALIST Work Phone: [facility] HealthcareStart: 36-49-6226Shzwcqvpm encounter Zohra Levi [facility] - Medical OncologyStart: 01-12-2023 End: 17-80-0294bxzreichloYVW BRUNILDA AICHHOLZFacility:N0Jtauf: 10-13-2022 End: 28-42-2402gnbissxbctYLE BRUNILDA RAMSEYHHOLZFacility:C9Djfmw: 07-21-2022 End: 26-36-8678faomihtxmcIJH BRUNILDA AICHHOLZFacility:S2Oxcsb: 04-21-2022 End: 45-03-2901vixhitmlpsRR DOCTOR MISCFacility:L3Ighnw: 01-19-2022 End: 05-64-7606dojrkdkyyvDDR BRUNILDA AICHHOLZFacility:N5Hegvx: 10-21-2018 End: 36-54-4418Ylcfond encounter procedureHAIDER [facility] Start: 04-15-2018 End: 19-58-9701Shzhfgb encounter procedureHAIAultman Hospital Procedures DateProcedureProcedure DetailPerforming ClinicianStart: 58-33-2334AFY CBC WITH AUTO DIFFGeneric External Data ProviderStart: 35-68-3834SjfokhnxwzqDqyr Aichholz SECURITY SPECIALIST Work Phone: Start: 87-68-1986SOW CBC WITH AUTO DIFFGeneric External Data ProviderStart: 99-64-0466QZW HEMOGLOBIN G3XOoji Milton SECURITY SPECIALIST Work Phone: Start: 41-05-8283UixbtszwretDpqq Aichholz SECURITY SPECIALIST Work Phone: Plan of Treatment DateCare ActivityDetailAuthorStart: 03-05-2026Medicare Annual Wellness (AWV) Medicare Annual Wellness (AWV)[facility] HealthcareStart: 57-38-4041Xvxwbkvtc for malignant neoplasm of breastMammogramNOMS HealthcareStart: 03-80-3265Amfdh screening for proteinDiabetes: Urine Protein ScreeningNOMS HealthcareComment on above:Postponed from 1969 (Other Medical Reasons)Start: 06-25-2025 End: 59-68-5169Fqburok encounter mhnbtiyoh55/08/2025 9:20 AM EDT Office Visit [facility] [address] [place] [address] Brunilda Rose NP [address] [place] [address] [facility] FMStart: 38-37-1977Cnrgyhvsz vaccinationInfluenza Vaccine (Season Ended)[facility] HealthcareStart: 97-06-9644Uanitucqs vaccination Influenza Vaccine (#1)[facility] HealthcareComment on above:Postponed from 06/18/2024 (Patient Refused)Start: 12-20-2024 End: 92-44-3240Scnifjb encounter asyaopard16/05/2025 10:30 AM EST Office Visit [facility] [address] [place] [address] Brunilda Rose, RHEA [address] [place] [address] Polyneuropathy (Primary Dx); Morbid (severe) obesity due [...] edema; Age-related osteoporosis without current pathological fracture ([facility]/HCC); Hypothyroidism, unspecified type ([facility]/HCC); Encounter for subsequent annual wellness visit (AWV) in Medicare patient; Chronic gout without tophus, unspecified cause, unspecified site; Hyperglycemia; Cigarette nicotine dependence without complicationStart: 02-26-2025Medicare Annual Wellness (AWV)Medicare Annual Wellness (AWV)[facility] HealthcareStart: 28-49-6131Wxthqkpoq for malignant neoplasm of colonColorectal Cancer Screening N[facility] HealthcareComment on above:Postponed from 1950 (Patient Refused) Start: 12-12-2024 End: 43-81-7827Usmcedj encounter kwfeowjfu08/25/2025 10:00 AM EST Office Visit [facility] [address] [place] [address] Brunilda Rose NP [address] [place] [address] [facility] FMStart: 45-16-4950Tqaxqksv screeningDiabetes: Retinopathy ScreeningNOMS HealthcareComment on above:Postponed from 1960 (Other Medical Reasons)Start: 87-07-1154Qebty screening for proteinDiabetes: Urine Protein ScreeningNOMS HealthcareComment on above:Postponed from 1969 (Other Patient Reasons)Start: 43-04-3110Yxwtdwvph vaccinationInfluenza Vaccine (#1)[facility] HealthcareStart: 72-29-4763Hwgnmsdtm for malignant neoplasm of breast MammogramNOMS HealthcareStart: 06-12-2024 End: 59-90-7590Yfbeuhu encounter rlcpxydvp76/26/2024 9:20 AM EDT Office Visit [facility] [address] [place] [address] Brunilda Rose NP [address] [place] [address] Morbid (severe) obesity due to excess calories (CMS/HCC); Body mass index (BMI) 40.0-44.9, adult (CMS/HCC); Malignant neoplasm of vagina (CMS/HCC)[facility] FMComment on above:Morbid (severe) obesity due to excess calories (CMS/HCC); Body mass index (BMI) 40.0-44.9, adult (CMS/HCC); Malignant neoplasm of vagina (CMS/HCC)Start: 87-03-6407Ozewi BMI ScreeningAdult BMI ScreeningProOhio State Health Systemtart: 77-34-9654WKDIF-19 Vaccine ( season)COVID-19 Vaccine ( season)[facility] Centertart: 87-99-8423Avayygmqv vaccinationInfluenza VaccineSt. [facility]'s [facility] SystemStart: 53-18-7918Fubc Risk ScreeningFall Risk ScreeningHaywood Regional Medical Centertart: 92-44-3931Hryzpyenkfzzzz of varicella zoster vaccineZoster (Shingles) Vaccine (1 of 2)[facility] Centertart: 06-20-7180IPbW,Tdap and Td Vaccines (1 - Tdap)DTaP,Tdap and Td Vaccines (1 - Tdap)[facility] SystemStart: 35-32-2078Nzksx screening for proteinDiabetes: Urine Protein ScreeningLOGAN REGIONAL [facility] HealthcareStart: 34-44-3426Jpfgy BMI Follow Up PlanAdult BMI Follow Up Plan [facility]: 48-13-2620Qpciwsjzri ScreeningDepression Screening [facility] Centertart: 27-79-8760Iyqomao ScreeningTobacco Screening [facility]ertart: 86-54-3358Drkgqrqb screeningDiabetes: Retinopathy ScreeningLOGAN REGIONAL H[facility]ITAL HealthcareStart: 96-05-7329Ypkafykrsv A1c measurementDiabetes: Hemoglobin N9TATMXOzarks Community HospitalStart: 1950Medicare Annual Wellness Visit Medicare Annual Wellness VisitHaywood Regional Medical Centertart: 74-90-8363Frzwrmltq for malignant neoplasm of colonLOGAN REGIONAL HOSPITAL Healthcare Immunizations Immunization DateImmunizationNotesCare CqhfhxhdGvlsmcfh68-00-6785Ecauncpep, Seasonal, Quadrivalent, AdjuvantedLisa Aichholz SECURITY SPECIALIST Work Phone: [facility] HospitalShipkukzdc35-05-0208ULWC-OSQ-4 (COVID-19) vaccine, mRNA, spike protein, LNP, PF, india-sucrose, 30 mcg/0.3 mLLisa Aichholz SECURITY SPECIALIST Work Phone: [phone] [place], [place] [address]Pzrrngosgc18-41-1415tttgdjyll virus vaccine, unspecified formulationLisa Aichholz SECURITY SPECIALIST Work Phone: [phone] [place], [place] [address]Nqlhkwuqyt99-99-9950Lszqqrmrf, Seasonal, Quadrivalent, AdjuvantedLisa Aichholz SECURITY SPECIALIST Work Phone: [phone] [place], [place] [address]Pefdxixggu16-12-6161TFMB-ORP-1 (COVID-19) vaccine, mRNA, spike protein, LNP, bivalent, preservative free, 30 mcg/0.3 mL dose, india-sucrose formulationLisa Aichholz SECURITY SPECIALIST Work Phone: [phone] [place], [place] [address]Alnislbdlr15-12-4677kgccfppyb virus vaccine, unspecified formulationPaula [facility]11-24-2021Pfizer Purple Cap SARS-CoV-2 VaccinationLisa Aichholz SECURITY SPECIALIST Work Phone: [phone] [place], [place] [address]Sxublvqhic40-79-9513aacveqbjlzen polysaccharide vaccine, 23 valentLisa Aichholz SECURITY SPECIALIST Work Phone: [phone] [place], [place] [address]Txpeulatbh40-43-7398Zvbraqatz, Seasonal, Quadrivalent, AdjuvantedLisa Aichholz SECURITY SPECIALIST Work Phone: [phone] [place], [place] [address]Bsvrwyuxdv52-28-8082Njvyzu Purple Cap SARS-CoV-2 VaccinationLisa Aichholz SECURITY SPECIALIST Work Phone: [phone] [place], [place] [address]Feqepbfzbi93-33-6704Nrexup Purple Cap SARS-CoV-2 VaccinationLisa Aichholz SECURITY SPECIALIST Work Phone: noUniversity of Missouri Health CareKxgpubimiq81-57-5184Xyctvuhlj, Seasonal, Quadrivalent, AdjuvantedLisa Deonholz SECURITY SPECIALIST Work Phone: noUniversity of Missouri Health CareIxoyswmnfk90-68-0447tjydrkvlebph conjugate vaccine, 13 valentLisa Deonholz SECURITY SPECIALIST Work Phone: [facility] Healthcare Payers DatePayer CategoryPayerPolicy [id number] InsuranceMEDICAL MUTUAL Member Subscriber Plan / Payer (Effective 2021-Present) Name: Eunice Castillo Rick Relation to Subscriber: Self Name: Eunice Castillo Rick ID: Not on file Type: Not on file Address: [place] [id number] 2015Medicare [id number] [id number] [id number] 1960 [id number] 2.840.1.056296.3.579.2.593 [id number] 2.16.840.1.553382.3.57[id number] 2.16.840.1.761460.3.57[id number] 2.0.1.157311.3.57[id number] 2.16.840.1.676364.3.57[id number] 2..840.1.184465.3.57[id number] 2..840.1.815630.3.57[id number] 2.0.1.609922.3.57[id number] 2..840.1.862497.3.579.2.1259Private Health InsuranceRancho Los Amigos National Rehabilitation [id number] Social History DateTypeDetailFacilityStart: 10-31-2019 End: 48-38-4166Eduilkg smoking status NHISSmokes tobacco dailyProvidence HospitalHistory of tobacco useCigarette SmokerSt. [facility] SystemStart: 10-31-2019 End: 55-85-0754Zblrmalgzb smoked current (pack per day) - Zljzoqvr5ETOC HealthcareStart: 98-33-8140Tpunqho use and exposureSmokeless tobacco non-user [facility] [employer] SystemStart: 11-13-2020 End: 51-70-7092Ywnkiam intakeLifetime non-drinker (finding)[facility] SystemStart: 08-16-2019 End: 73-53-2163Ehevjoz Use Disorder Identification Test - Consumption [AUDIT-C] [facility] HealthcareFrequency of Alcohol ConsumptionNeMount Carmel Health System System Start: 30-11-1260Bcn Assigned At BirthNot on fileProvidence HospitalWithin the last year, have you been afraid of your partner or ex-partner?NoNOMS HealthcareDo you belong to any clubs or organizations such as zoroastrianism groups, unions, fraternal or athletic groups, or [...] got money to buy more.Never trueNOMS HealthcareStart: 57-60-9538Lyxztps Commentcaffine: 4 cups dailyNOMS HealthcareSexFemale (finding) [facility] Centertart: 25-23-4250Mxo Assigned At [facility] History of Present illness Narrative 12-20-2024 Note Date & YljxQewnYyvmackn15-29-9851 History of Present illness Narrative* IBIS RAYA [...] Any Hospitalizations in the last year:none Specialist:Rheumatology, WATERSHED MANAGER HCPOA/Living Will:yes Concerns: Thyroid Problem Presents [...] compliance problems. There is no history of CAD/MN, heart failure or PVD. Identifiable causesof hypertension [...] 12/13/2023 Heel spur, left 12/13/2023 HTN (hypertension) ([facility]) 12/13/2023 Hyperglycemia 12/13/2023 Hypothyroid ([facility]) 12/13/2023 Lower extremity edema 12/13/2023 Morbid obesity with body mass index (BMI) of 40.0 to 49.9 ([facility]) 12/13/2023 Non-compliant patient 12/13/2023 Osteoarthritis 12/13/2023 Osteoporosis ([facility]) 12/13/2023 Polyneuropathy 12/13/2023 RA (rheumatoid arthritis) ([facility]) 12/13/2023 Tobacco user 12/13/2023 Vaginal cancer ([facility]) 12/13/2023 Vitamin B12 deficiency 12/13/2023 [...] Visit Body mass index (BMI) 40.0-44.9, adult ([facility]) Chronic idiopathic gout of multiple [...] gabapentin (Neurontin) 300 MG capsule HTN (hypertension) ([facility]) Please check blood pressure daily and record DASH diet Limit caffeine Take medication as directed Contact office if chest pain, pressure, dizziness, shortness of breath, swelling legs Recommend slow position changes Current meds: lisinopril, and lasix Relevant Medications lisinopril 10 MG tablet Malignant neoplasm of vagina ([facility]) Osteoporosis ([facility]) DEXA was 05/10, -3.0, Current med fosamax Lower extremity edema Lasix Limit sodium, elevate feet as much as possible Check labs yearly and prn Relevant Medications furosemide (Lasix) 40 MG tablet potassium chloride CR (Klor-Con) 10 MEQ ER tablet Morbid (severe) obesity due to excess calories ([facility]) Discussed with patient their BMI (actual, verses recommended). We have also discussed lifestyle modifications: attempts to perform physical activity as chronic conditions allow, also to monitor dietary intake: increasing protein/fruits/veggies and lowering carb intake (unless contraindicated). Limit sodas, juices, and sugary drinks. Hypothyroid ([facility]) Current med on levothyroxine Check labs yearly, prn dose changes, changes in symptoms Relevant Medications levothyroxine (Synthroid, Levoxyl) 150 MCG tablet Rheumatoid arthritis with rheumatoid factor, unspecified ([facility]) Continue with dr cardenas Current [...] of the risks of continued smoking: stroke, MN, all forms of cancer, lung disease, and [...] of the risks of continued smoking: stroke, MN, all forms of cancer, lung disease, and [...] Problem(s): Rheumatoid arthritis with rheumatoid factor, unspecified ([facility]) Continue with dr cardenas Current [...] intraepithelial neoplasia III) 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 w WATERSHED MANAGER/onc * Brunilda Rose NP - 12/20/2024 6:45 [...] as well OARRS reviewed documented in this encounterNOTN Healthcare History of Present illness Narrative 06-12-2024 Note Date & SnnvCuytPksxuvnw70-87-8974 History of Present illness Narrative* Brunilda Rose [...] 06/12/2024 11:21 AM EDTAssociated Problem(s): HTN (hypertension) ([facility]) Stable at this time No [...] 12/13/2023 Heel spur, left 12/13/2023 [place] ([place]) [place] 12/13/2023 Hyperglycemia 12/13/2023 Hypothyroid ([facility]) 12/13/2023 Lower extremity edema 12/13/2023 Morbid obesity with body mass index (BMI) of 40.0 to 49.9 ([facility]) 12/13/2023 Non-compliant patient 12/13/2023 Osteoarthritis 12/13/2023 Osteoporosis ([facility]) 12/13/2023 Polyneuropathy 12/13/2023 RA (rheumatoid arthritis) ([facility]) 12/13/2023 Tobacco user 12/13/2023 Vaginal cancer ([facility]) 12/13/2023 Vitamin B12 deficiency 12/13/2023 Past Surgical [...] Visit Body mass index (BMI) 40.0-44.9, adult ([facility]) Gastroesophageal reflux disease without esophagitis Polyneuropathy Would like to increase gabapentin to 300mg BID Relevant Medications gabapentin (Neurontin) 300 MG capsule HTN (hypertension) ([facility]) - Primary Stable at this time No med dose change Relevant Medications lisinopril 10 MG tablet Malignant neoplasm of vagina (CMS/HCC) Continue with Patient Services Technician/Onc Lower extremity edema Relevant Medications potassium chloride CR (Klor-Con) 10 MEQ ER tablet furosemide (Lasix) 40 MG tablet Morbid (severe) obesity due to excess calories (CMS/HCC) Hypothyroid (CMS/HCC) Fatigue, takes thyroid meds daily as directed Relevant Medications levothyroxine (Synthroid, Levoxyl) 150 MCG tablet Tobacco user RA (rheumatoid arthritis) ([facility]) Relevant Medications folic acid (Folvite) 1 MG [...] Malignant neoplasm of vagina (CMS/HCC) Continue with Patient Services Technician/Onc documented in this encounterLOGAN [facility]IONAL [facility] Healthcare Note 10-13-2023 Note Date & PhupTkmuSxgbaaar06-72-2559 Miscellaneous Notes* Telephone Encounter - Zohra Oates - 10/13/2023 2:33 PM EST CALLED TO CANCEL FOLLOW UP WITH ANTONIETTA SHE DOES NOT WANT TO RESCHEDULE AT THIS TIME documented in this encounterSt. [facility] Tele[facility] encounter Note 10-13-2023 Note Date & TlqgRgtkPveugsjl96-05-0191 Telephone encounter Note* Telephone Encounter - Zohra Oates - 10/13/2023 2:33 PM EST CALLED TO CANCEL FOLLOW UP WITH ANTONIETTA SHE DOES NOT WANT TO RESCHEDULE AT THIS TIME [facility] System Evaluation note Note Date & TypeNoteFacilityEvaluation [...] (CMS/HCC) Other fatigue documented in this encounter [facility] Evaluation note Note Date & [...] with positive rheumatoid factor, involving unspecified site ([facility]) Allergic rhinitis, unspecified seasonality, unspecified trigger Gastroesophageal reflux disease without esophagitis Esophageal reflux Primary hypertension ([facility])- Primary Unspecified essential hypertension Morbid (severe) obesity due to excess calories ([facility]) Body mass index (BMI) 40.0-44.9, adult ([facility]) Malignant neoplasm of vagina ([facility]/HCC) Malignant neoplasm of vagina Gastroesophageal reflux disease without esophagitis Esophageal reflux Lower extremity edema Edema Hypothyroidism, unspecified type ([facility]) Tobacco user Tobacco use disorder Hyperglycemia Other abnormal glucose Polyneuropathy Unspecified hereditary and idiopathic peripheral neuropathy Rheumatoid arthritis with positive rheumatoid factor, involving unspecified site ([facility]) Other fatigue Encounter for subsequent annual wellness visit (AWV) in Medicare patient- Primary Morbid (severe) obesity due to excess calories ([facility]) Body mass index (BMI) 40.0-44.9, adult ([facility]) Rheumatoid arthritis with rheumatoid factor, unspecified ([facility]) Malignant neoplasm of vagina ([facility]) Malignant neoplasm of vagina Polyneuropathy Unspecified hereditary and idiopathic peripheral neuropathy Primary hypertension ([facility]) Unspecified essential hypertension Gastroesophageal reflux disease without esophagitis Esophageal reflux Idiopathic chronic gout of multiple sites without tophus Lower extremity edema Edema Age-related osteoporosis without current pathological fracture ([facility]) Hypothyroidism, unspecified type ([facility]) Chronic gout without tophus, unspecified [...] arthritis with rheumatoid factor, unspecifiedacuteSeptember 2024 10:25am [facility] Work Phone: Instructions Note Date & TypeNoteFacilityInstructionsNot on filedocumented in this encounter [facility] Reason for referral (narrative) Note Date & TypeNoteFacilityReason for referral (narrative)No reason for referral information availableSelect [facility] Work Phone: Summary Purpose Family History No [...] section and content) DATE CREATED AUTHOR 10/27/2018 [facility] DATE CREATED AUTHOR AUTHOR'S ORGANIZ ATION 01/15/2023 [facility] DATE CREATED AUTHOR AUTHOR'S ORGANIZ ATION 12/22/2024 [facility] EPIC Care Teams (unrecognized sec tion and content) Team MemberRelationshipSpecialtyStart DateEnd Date Brunilda Rose, ORIENTAL RUG STRETCHER-TAXATION CONSULTANT [address] [place] [id number] PCP - GeneralNurse Hsbyvrhkxvte21/30/19Team MemberRelationshipSpecialtyStart DateEnd Date Jerry Shah MD [address] [place] [phone] PCP - GeneralFamily Medicine12/06/23 Brunilad Rose NP [address] [place] [address] Nurse PractitionerLifebrite Community Hospital [facility] Early10/18/22Team MemberRelationshipSpecialtyStart DateEnd Date Jerry Shah MD [address] [place] [address] PCP - [facility]12/06/23 Brunilda Rose NP [address] [place] [address] Nurse [facility]10/18/22Te MemberRelationshipSpecialtyStart DateEnd Date Jerry Shah MD [address] [place] [address] PCP - [facility]12/06/23 Brunilda Rose NP [address] [place] [address] Nurse [facility]10/18/22Te MemberRelationshipSpecialtyStart DateEnd Date Jerry Shah MD [address] [place] [address] PCP - [facility]12/06/23 Brunilda Rose NP [address] [place] [address] Nurse [facility]10/18/22Team MemberRelationshipSpecialtyStart DateEnd Date Jerry Shah MD [address] [place] [phone] PCP - [facility]12/06/23 Brunilda Rose NP [address] [place] [address] Nurse PractitionerLifebr[facility]10/18/22Team MemberRelationshipSpecialtyStart DateEnd Date Jerry Shah MD [address] [place] [address] PCP - [facility]12/06/23 Brunilda Rose NP [address] [place] [address] Nurse PractitionerLifebrite Community Hospital [facility]10/18/22 Team Status: Active Member Role Status Dates [...] BE BASED ON THE PRIMARY CLINICAL RECORDS. [employer] [facility]. provides no warranty or guarantee of the accuracy or completeness of information in this document.
[2025-08-14] MEDS: REMOVE PATCH 1 PATCH TOPICAL (09:30)
[2025-08-14] MEDS: OXYCODONE HCL 5 MG TABLET PO ×3 (09:40→20:48)
[2025-08-14] MEDS: DEXAMETHASONE SOD PHOS 4 MG/ML VIAL 6 MG IV ×2 (09:40→20:47)
[2025-08-14] MEDS: KETOROLAC TROMETHAMINE 30 MG/ML VIAL 15 MG IVP (09:41)
[2025-08-14] MEDS: ENOXAPARIN SODIUM 40 MG/0.4 ML SYRINGE SUBQ (09:42)
[2025-08-14] MEDS: CYCLOBENZAPRINE HCL 10 MG TABLET PO ×2 (09:42→20:46)
[2025-08-14] MEDS: SENNOSIDES/DOCUSATE SODIUM 1 TAB TABLET PO ×2 (09:42→20:47)
[2025-08-14] MEDS: GABAPENTIN 300 MG CAPSULE PO ×2 (09:43→20:47)
[2025-08-14] MEDS: FOLIC ACID 1 MG TABLET PO (09:43)
[2025-08-14] MEDS: ALLOPURINOL 300 MG TABLET PO (09:43)
[2025-08-14] MEDS: DOCUSATE SODIUM 100 MG CAPSULE PO (09:43)
[2025-08-14] MEDS: COLCHICINE 0.6 MG TABLET PO (09:45)
--- NOTE | 2025-08-14 10:00 | CM.NOTE ---
Rounds made with Dr. Glynn, pt continues with pain today. Pt will be fitted this afternoon for LSO brace, pt states she was too tired when they arrived to fit her last night. No discharge today, continue pain control and PT and OT.
--- NOTE | 2025-08-14 10:38 | PM.PN ---
Progress Note: Subjective Subjective Interval history: Patient continues to have pain, not as intense as yesterday. No new symptoms such as weakness or numbness, bladder or bowel retention or incontinence Exam Narrative Exam Narrative: [pt is awake and alert. oriented to place, time and person, morbidly obese moderate distress secondary to low back pain. HEENT: [place] conjunctiva and NL buccal mucosa Neck: Supple, no tenderness Endocrine: No Thyromegaly. Vascular: No JVD or carotid bruit. Lymphatic: No cervical lymphadenopathy. Chest: CTA no DTP. Heart RRR, no extra sound or murmur. Abd: Soft, no tenderness, no rebound and no rigidity. Increase abd girth therefore clinically I could not exclude the possibility of intra abd mass or organomegaly. LE: No cyanosis or clubbing, no varices or edema. Tenderness in the lumbar area. Paraspinal spasm. Patient is taken a long time to change position in bed due to due to pain severity. Patient is unable to sit up on her own without assist. Neuro: A A O. Nl speech, comprehension and attention. Nl and symetrical motor and tone examination through out. Normal muscle strength in lower extremities. No hyperreflexia. No sensory loss. []] Constitutional Vital Signs, click to edit/add: Last Vital Signs Temp 97.2 F L 08/14/25 07:53 Pulse 52 L 08/14/25 07:53 Resp 18 08/14/25 04:00 BP 138/64 08/14/25 07:53 Pulse Ox 95 08/14/25 07:53 O2 Del Method Nasal Cannula 08/14/25 07:53 O2 Flow Rate 2 08/14/25 07:53 Progress Note: Objective Labs Labs: Short CBC 08/14/25 Range/Units 05:33 WBC 8.8 (4.0-11.0) 10^3/uL Hgb 14.1 (12.0-16.0) g/dL Hct 42.3 (36.0-48.0) % Plt Count 221 (150-450) 10^3/uL BMP 08/14/25 05:33 Sodium 133 L Potassium 5.6 H Chloride 98 Carbon Dioxide 27.8 BUN 24.0 H Creatinine 0.77 Glucose 152 H Calcium 8.2 L Liver Function 08/14/25 Range/Units 05:33 Total Bilirubin 0.5 (0.2-1.0) mg/dL AST 16 (15-37) U/L ALT 27 (14-59) U/L Alkaline Phosphatase 70 (46-116) U/L Albumin 3.0 L (3.4-5.0) g/dL Progress Note: A&P Assessment and Plan (1) Burst fracture of lumbar vertebra: (2) Lumbar compression fracture: (3) Low back pain: Plan Acute spontaneous L2 fracture with retropulsion Severe pain limiting her ability to stand up and ambulate. I have accepted to observe her for pain management and therapy program. I requested MRI of the lumbar spine to take a better look at the lumbar area and provide further advice and recommendations. I started the patient on a combination of pain medications including Tylenol, Flexeril, Toradol as needed, Dilaudid as needed severe pain, oxycodone as needed moderate pain. MRI confirmed evidence of L2 fracture with retropulsion, 5 mm with thecal sac effacement I had discussed her case with the spine surgeon Dr. Landin. He did not recommend any surgical intervention. He recommended pain management, physical therapy and LSO brace. Brace was fitted and delivered yesterday to be applied today. Extend her observation stay for another 24 hours due to ongoing pain needing pain management. Rheumatoid arthritis Hypertension Better controlled. IV fluid infusion. Off lisinopril due to hyperkalemia Patient was started on Toprol-XL however patient became bradycardic therefore I will switch to amlodipine 2.5 mg daily. LAUREL with hyperkalemia Hold lisinopril. IV fluid infusion Monitor kidney function. Avoid nephrotoxic drugs. LAUREL had resolved however patient continued to have hyperkalemia. Changed her diet to low potassium Avoid NSAIDs if possible Avoid heparin products if possible however patient needs pharmacological DVT prophylaxis. Resume diuretics to help with hyperkalemia. 1 dose of Lokelma and repeat potassium level in AM. Suspect vitamin D deficiency and osteoporosis Check vitamin D level. Recommend DEXA scan to be done in the outpatient setting and if positive initiate bisphosphonate treatment Vitamin D level came back at 47 Continue vitamin D supplementation Continue bisphosphonate in the outpatient setting. DVT prophylaxis Lovenox. Tobacco addiction Counseling and education were provided. Increased risk of lung cancer due to smoking for many years. Recommend yearly low-dose radiation CAT scan of the chest to screen for lung cancer to be arranged by PCP Chronic, subacute medical conditions not listed above, abnormal labs and imaging. These would need to be addressed. Could be addressed later on or in the outpatient setting by PCP collaboration with other needed outpatient providers when time and condition are appropriate. Urinary Catheter Management Urinary Catheter Management Pure Wick: Cath placed during this visit: yes Urethral indwelling: No Insertion date: 08/13/25 Insertion time: 10:40
[2025-08-14 12:00] VITALS: BP 159/73; PULSE 51; TEMP 36; O2SAT 93
[2025-08-14] MEDS: SODIUM ZIRCONIUM CYCLOSILICATE 10 GM POWD.PACK PO (12:12)
--- NOTE | 2025-08-14 13:58 | CM.NOTE ---
CM in to speak with pt regarding skilled therapy at discharge, PT recommendations after seeing pt today. Pt is in agreement and would like to go to [facility] or [facility].
--- NOTE | 2025-08-14 14:49 | CM.NOTE ---
Addendum entered by Nerissa Avendano 08/15/25 06:48: CM also verified LSO brace fitting. Pt was fitted and able to wear brace today while up in chair. Original Note: Called and spoke with admissions for skilled, new referral sent by e-mail. Dr. Glynn did change pt to inpatient status for ongoing pain. Updated pt on referral status
--- NOTE | 2025-08-14 17:57 | PC.NURSE ---
Dr. Glynn notified, patient requesting biofreeze or something similar for hip soreness
[2025-08-14 20:00] VITALS: BP 163/72; PULSE 62; TEMP 36.4; O2SAT 94
[2025-08-14 21:16] VITALS: O2SAT 93
[2025-08-14 23:00] VITALS: BP 144/65; PULSE 53; TEMP 36.2; O2SAT 98
[2025-08-15] VITALS (10 sets, daily range): BP systolic 127–187; BP diastolic 64–89; PULSE 53–73; TEMP 36.2–36.8; O2SAT 88–98
[2025-08-15] MEDS: ACETAMINOPHEN 500 MG TABLET 1000 MG PO ×2 (05:02→14:07)
[2025-08-15] MEDS: PANTOPRAZOLE SODIUM 40 MG TABLET.DR PO (05:29)
[2025-08-15] MEDS: LEVOTHYROXINE SODIUM 75 MCG TABLET 150 MCG PO (05:29)
[2025-08-15 06:33] LABS: Anion Gap 8.2; Blood Urea Nitrogen 27.0 mg/dL (7.0-18.0); Calcium 8.4 mg/dL (8.5-10.1); Carbon Dioxide 31.5 mmol/L (21.0-32.0); Chloride 96 mmol/L (98-107); Estimated GFR (African America >60 (>=60 mL/min/1.73m^2); Estimated GFR (Non-African Ame >60 (>=60 mL/min/1.73m^2); Glucose 142 mg/dL (74-106); Potassium 4.7 mmol/L (3.5-5.1); Sodium 131 mmol/L (136-145)
--- OUTSIDE RECORDS SUMMARY | 2025-08-15 07:09 | XMS_ITS | Clinical Summary ---
Author Organization [facility] Address [address] [place], [place] [id number] Care Team Providers Care Fishing Boat Captain Name Role Phone Katherine Slater MD, Armani Hamilton Unavailable [phone] Brunilda Rose CNP Primary Care Provider [phone] Allergies Active AllergyReactionsCriticalityNoted CgrdPxzbspypZvqtuzqfbtnJgih46/02/2016 Medications MedicationSigDispense QuantityRefillsLast FilledStart DateEnd DateStatus methotrexate [...] once daily.03/30/2017Active Active Problems ProblemNoted DateDiagnosed DateMorbid yjgchpq3110/06/2016Other specified rheumatoid arthritis, multiple sites10/06/2016Chronic idiopathic gout of multiple sites10/06/2016Gastroesophageal reflux disease without esophagitis 10/06/20169599Ohytrr13/20/2016 Overview (10/06/2016): 45+ pack years Family History RelationStatusCommentsFatherDeceasedMotherDeceased Social History Tobacco UseTypesPacks/DayYears UsedDateSmoking Tobacco: Every KqyMeeipqkofn249 Smokeless Tobacco: Never Tobacco Cessation:Ready to Q uit: No; Counseling Given: Yes Alcohol UseStandard Drinks/WeekCommentsNo0 (1 standard drink = 0.6 oz pure alcohol)Area Deprivation IndexAnswerDate RecordedNational Score (1-100), lower number is lower riskNot on file2020State Score (1-10), lower number is lower riskNot on file2020Data from: https://www.neighborhoodatlas.medicine.[facility].edu/. Last address used for calculationNot on file2020CommentsNoSex and Gender Information ValueDate RecordedSex Assigned at BirthNot on fileLegal FabVjowwl27/01/2016 4:57 PM ESTGender IdentityNot on fileSexual OrientationNot on file Last Filed Vital Signs Vital SignReadingTime TakenCommentsBlood Xqtbpfqz749/8210/21/2018 10:45 AM EST Ladmq553910/21/2018 10:45 AM LGMXlnkqkuphla77.7 ??C (98 ??F)10/21/2018 10:45 AM ESTRespiratory Mxwq741610/21/2018 10:45 AM ESTOxygen Iemzdnizmz56%10/21/2018 10:45 AM ESTInhaled Oxygen Concentration--Vkturk585.9 kg (268 lb 12.8 oz)10/21/2018 10:45 AM LZLWmynsi118.1 cm (5' 5 )10/21/2018 10:45 AM ESTBody Mass Index44.73 10/21/2018 10:45 AM EST Plan of Treatment Health MaintenanceDue DateLast DoneCommentsAnxiety Npvffvumc67/09/1968Depression Thadvkzzf63/09/1968Hepatitis C Esxkfdttk39/09/1968DTaP,Tdap,Td Vaccine (1 - Tdap)1969Mammogram Cuvyuezij81/09/1990CT Wqfmeeiicnxi05/09/1995Cologuard (FIT-DNA)09/25/19950532Seuztebamha90/09/1995Colorectal Cancer Qfrmvsrzc20/09/1995 Fecal Occult Blood1995Lipid Avilslsyh64/09/6221Bpjgaqrznmtir06/09/1995 Pneumococcal Vaccine: 50+ (1 of 1 - PCV)2000Shingrix Vaccine (1 of 2) 2000Bone Density Jefqztssd84/09/2015Diabetes Fcdmnwxqk68 Advance Directive Psbuopytjq44/01/2025ovid-19 Vaccine (1 - 2024- season) 2025Influenza Vaccine (#1)2025RSV Vaccine (1 - 1-dose 75+ series) 2025 Procedures Procedure NamePriorityDate/TimeAssociated DiagnosisCommentsBASIC METABOLIC PANEL (EU,FV,HL,BRIA,MM,SP)ASAP10/30/2016 7:24 AM EST from Last 3 Months or Most Recently Relevant to Health Maintenance Results * (ABNORMAL) BASIC METABOLIC PANEL (AV,EU,FV,HL,BRIA,MM,SP) (10/30/2016 7:24 AM EST)ComponentValueRef RangeTest MethodAnalysis TimePerformed AtPathologist XolcpdwkgQmlmywj708(H)65 - 100 mg/dL10/30/2016 8:58 [facility] BUN98 - 25 mg/dL10/30/2016 8:58 AM ESTFA[facility] LABORATORYCreatinine0.63(L)0.70 - 1.40 mg/dL10/30/2016 8:58 AM [facility] GINXYNOMLZRcctbo187756 - 148 mmol/L 10/30/2016 8:58 AM ESTFA[facility]ATORYPotassium3.83.5 - 5.0 mmol/L 10/30/2016 8:58 AM [facility] TMGYCHIQBGRxqucpze5681 - 110 mmol/L10/30/2016 8:58 AM [facility] AFQWUXRCIXJF82911 - 32 mmol/L10/30/2016 8:58 AM EST [facility]ORYAnion Dtr913 - 18 mmol/L10/30/2016 8:58 AM ESTFA[facility] LABORATORYCalcium8.58.5 - 10.5 mg/dL10/30/2016 8:58 AM [facility] Glom Filtration Rate (AA)>60>60010/30/2016 8:58 AM ESTFAIR[facility] LABORATORYGlom Filtration Rate (SENAIT)>60>60 .10/30/2016 8:58 AM ESTFAIRVIEW LABORATORYSpecimen (Source)Anatomical Location / LateralityCollection Method / VolumeCollection TimeReceived TimeBlood specimen (specimen)BLOOD SPECIMEN / Dybqvxi8710/30/2016 7:24 AM EST10/30/2016 7:25 AM EST Narrative Authorizing ProviderResult TypeResult StatusLatonya Reyes MDLABORATORY REGIONALFinal ResultPerforming OrganizationAddressCity/State/ZIP CodePhone Number [facility] [id number] [place] [phone] from Last 3 Months or Most Recently Relevant to Health Maintenance Insurance Care Teams Team MemberRelationshipSpecialtyStart DateEnd Date Brunilda Rose CNP PCP - GeneralFamily Medicine04/15/18 Armani Murphy Jr., MD Dymnjhausdbr80/20/16
--- OUTSIDE RECORDS SUMMARY | 2025-08-15 07:09 | XMS_ITS | Clinical Summary ---
Author Organization [facility] Address [address] [place] [address] Care Team Providers Care Credit Representative Name Role Phone Brunilda Rose NP Unavailable [phone] Jerry Shah MD Primary Care Provider [phone] Allergies Active AllergyReactionsCriticalityNoted OcjaAlchfeoxNttyuqztsHuikbedd32/19/2024 PhtokwpyxpkCbpirje28/19/2024 Medications MedicationSigDispense QuantityRefillsLast FilledStart DateEnd DateStatus methotrexate [...] tablet Take 0.6 mg by mouth As pyhmczcn62/08/2024ctive alendronate (Fosamax) 70 MG tablet Take 70 [...] Problems ProblemNoted DateDiagnosed DateCigarette nicotine dependence without sjwkbriijeul11/05/2025 Assessment & Plan (12/20/2024 6:53 AM EST): The patient has been advised of the risks of continued smoking: stroke, [place], all forms of cancer, lung disease, and . Options for quitting smoking include: cold turkey, hypnosis, acupuncture, nicotine replacement meds(gum, lozenges, and patches), Buproprion, and Varenicline. At this time pt is encouraged to evaluate their goals for wanting to quit smoking, and reach out toprovider when ready to start this process Prjgfltofdebld50/26/2024 Assessment & Plan (12/20/2024 11:39 AM EST): [...] script Fu in 6 months Abdominal pain, biwkfjhvqns66/26/2024HTN (hypertension)12/13/2023 Assessment & Plan (12/20/2024 6:44 AM [...] EST): Stable, no changes Malignant neoplasm of ynfybt0012/13/2023 Assessment & Plan (06/12/2024 6:52 AM EDT): Continue with [employer]ge/Onc Nlgpothfdnda08/26/2024 Overview (05/09/2024): DEXA: 05/08/24: lumbar -2.1 and right femur -3.0 osteoporosis Assessment & Plan (12/20/2024 6:54 AM EST): DEXA was 05/10, -3.0, Current med fosamax Jqyjtnnfnivass93/26/2024Lower extremity edema12/13/2023 Assessment & Plan (12/20/2024 6:46 AM EST): Lasix Limit sodium, elevate feet as much as possible Check labs yearly and prn Assessment & Plan (12/13/2023 11:59 AM EST): Stable, no acute swelling Heel spur, left12/13/2023Vitamin B12 fqnraitkhu12/26/2024Morbid (severe) obesity due to excess gjyfrrmr00/26/2024 Assessment & Plan (12/20/2024 6:48 AM EST): Discussed with patient their BMI (actual, verses recommended). We have also discussed lifestyle modifications: attempts to perform physical activity as chronic conditions allow, also to monitor dietary intake: increasing protein/fruits/veggies and lowering carb intake (unless contraindicated). Limit sodas, juices, and sugary drinks. Stozdfcatyi50/26/2024 Assessment & Plan (12/20/2024 6:48 AM EST): Current med on levothyroxine Check labs yearly, prn dose changes, changes in symptoms Assessment & Plan (06/12/2024 11:23 AM EDT): Fatigue, takes thyroid meds daily as directed Assessment & Plan (12/13/2023 11:59 AM EST): No changes to meds Rheumatoid arthritis with rheumatoid factor, kihflifuuti77/26/2024 Assessment & Plan (12/20/2024 6:52 AM EST): Continue with dr fernandez Current meds: humira, methotrexate, Assessment & Plan (12/13/2023 12:04 PM EST): Continue with dr fernandez Non-compliant cbylyth4712/13/20230423Ydgrckqbkrfpv00/26/2024 Assessment & Plan (12/20/2024 11:38 AM EST): [...] see what glucose is H/O degenerative disc jwpzuhy7112/13/2023Gout12/13/2023 Assessment & Plan (12/20/2024 6:50 AM EST): Current meds allopurinol and colchicine Labs check w Rheumatology Znyegox1212/13/2023 Assessment & Plan (06/12/2024 11:27 AM EDT): [...] A1c test and go from there Allergic hbdatops33/26/2024cute pain of left /26/2024 Assessment & Plan (12/13/2023 12:02 PM EST): [...] 6:45 AM EST): 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 w [employer]/onc Body mass index (BMI) 40.0-44.9, adult09/27/2019Chronic idiopathic gout of multiple sites10/06/2016 Assessment & Plan (12/20/2024 6:46 AM EST): Takes allopurinol Labs are follow with Rheumatology Gastroesophageal reflux disease without mhrtkxqtsca05/20/2016 Assessment & Plan (12/20/2024 11:40 AM EST): [...] without complication, without long-term current use of uvenltp69/Morbid yegngun12Other specified rheumatoid arthritis, multiple sitesSmoker112/07/2015 12/20/2024 Overview (12/13/2023): 45+ pack years Immunizations ImmunizationAdministration DatesNext DueInfluenza, Seasonal, Quadrivalent, Csxvpytvwi76/13/2023,08/11/2022,08/26/2021,08/27/2020Pfizer Purple Cap SARS-CoV-2 Iezhivuklcm35/24/2021,01/07/2021,1Pneumococcal Conjugate PCV 13110/27/2019Pneumococcal Polysaccharide JURV2122/11/2577RYCE-ZMS-5 (COVID-19) vaccine, mRNA, spike protein, LNP, PF, [place]-sucrose, 30 mcg/0.3 mL07/30/2023 SARS-COV-2 (COVID-19) vaccine, mRNA, spike protein, LNP, bivalent, preservative free, 30 mcg/0.3 mLdose, [place]-sucrose bxtztfgvxci19/25/2022 Social History Tobacco UseTypesPacks/DayYears UsedDateSmoking Tobacco: Every [...] week12/13/2023How often do you attend zoroastrian or mormon services?Never12/13/2023o you belong to any clubs or organizations such as zoroastrian groups, unions, fraternal or athletic groups, or school groups?Yes12/13/2023How often do you attend meetings of the clubs or organizations you belong to?Never12/13/2023re you , , , , never , or living with a partner?Jgillhy0212/13/2023UDIT-C AnswerDate RecordedQ1: How often do you have [...] hard at all12/13/2023 PHQ-2AnswerDate RecordedPatient Health Questionnaire-2 [facility]764Fin[facility] [place] [facility] - Occupational Stress QuestionnaireAnswerDate RecordedDo you feel stress - tense, restless, nervous, or anxious, or unable to sleep at night because yourmind is troubled all the time - these days?Only a sykyrt2412/13/2023Exercise Vital SignAnswerDate RecordedOn average, how many days [...] steady place to sleep or slept in [facility] (including now)?No12/13/2023CommentsUnknownSex and Gender InformationValueDate RecordedSex Assigned at BirthNot on fileLegal SexFemale 06/16/2023 9:04 AM EDTGender IdentityNot on fileSexual OrientationNot on file Last Filed Vital Signs Vital SignReadingTime TakenCommentsBlood Jnfmpxdm115/80012/20/2024 10:30 AM EST Vlifm404212/20/2024 10:30 AM FZLJxinlaosfcf83.8 ??C (98.3 ??F)12/20/2024 10:30 AM ESTRespiratory Qulw313612/20/2024 10:30 AM ESTOxygen Fhwmppuubz96%12/20/2024 10:30 AM ESTInhaled Oxygen Concentration--Rfoime602 kg (244 lb 6.4 oz)12/20/2024 10:30 AM LMWBfameq933.6 cm (5' 4 )12/20/2024 10:30 AM ESTBody Mass Index41.95 12/20/2024 10:30 AM EST Plan of Treatment Not on file Insurance Care Teams Team MemberRelationshipSpecialtyStart DateEnd Date Jerry Shah MD PCP - GeneralFamily Medicine12/06/23 Brunilda Rose NP Nurse PractitionerFamily Medicine10/18/22
--- OUTSIDE RECORDS SUMMARY | 2025-08-15 07:09 | XMS_ITS | Clinical Summary ---
Author Organization [facility] Address [id number] [place] [address] Care Team Providers Care Territory Supervisor Name Role Phone RamseyBrunilda barone Altagracia ARMATURE WINDER-BENCH CHEMIST Primary Care Provider Allergies Active AllergyReactionsCriticalityNoted DateCommentsPiroxicamSwellingMedium 08/16/20199888QckrvubrfiiYdbjJlv91/02/2016 Medications MedicationSigDispense QuantityRefillsLast FilledStart DateEnd DateStatus acetaminophen [...] Social History Tobacco UseTypesPacks/DayYears UsedDateSmoking Tobacco: Every DdwLcbxeyjpon699 Smokeless Tobacco: NeverAlcohol UseStandard Drinks/WeekCommentsNever0 (1 standard drink = 0.6 oz pure alcohol)AUDIT-CAnswerDate RecordedFrequency of Alcohol QtenabdntsaTqwwn03/30/2019Average Number of DrinksNot on file08/16/2019 Frequency of Binge DrinkingNot on file08/16/2019ChildcareAnswerDate Recorded JymuhsdpgLmldawa32/12/2019EmploymentAnswerDate RecordedEmploymentUnknown 03/29/2019Purpose - LifeAnswerDate RecordedPurpose and direction in lifeUnknown 1CommentsNoSex and Gender InformationValueDate RecordedSex Assigned at BirthNot on fileLegal XwfAllipz21/06/2015 11:35 AM EDTGender IdentityNot on fileSexual OrientationNot on file Last Filed Vital Signs Vital SignReadingTime TakenCommentsBlood Jzniafif419/85010/21/2022 10:02 AM EST Iluuq284410/21/2022 10:02 AM QMOSptcmtxquls59.6 ??C (97.9 ??F)10/21/2022 10:02 AM ESTRespiratory Vhsc261010/21/2022 10:02 AM ESTOxygen Rfnqolznsl68%10/21/2022 10:02 AM ESTInhaled Oxygen Concentration--Smtmdz049.9 kg (251 lb)10/21/2022 10:02 AM FRQXvcmcb157.6 cm (5' 4 )10/21/2022 10:02 AM ESTBody Mass Index43.0810/21/2022 10:02 AM EST Plan of Treatment Health MaintenanceDue DateLast DoneCommentsDepression Pqdfxwzru38/09/1962Tobacco Spugheqmw47/09/1962DTaP,Tdap and Td Vaccines (1 - Tdap)1969Zoster (Shingles) Vaccine (1 of 2)2000Fall Risk Pmegdwonx14/09/2015dult BMI Ubgnxpbhc60OVID-19 Vaccine (2024- season)2025 08/11/2022, 09/10/2021, 01/07/2021, Additional history existsInfluenza Vaccine , 08/26/2021, 08/27/2020 Medical Devices Not on file Insurance Care Teams Team MemberRelationshipSpecialtyStart DateEnd Date Brunilda Rose, ARMATURE WINDER-BENCH CHEMIST PCP - GeneralNurse Iutgebluyshp75/30/19
--- OUTSIDE RECORDS SUMMARY | 2025-08-15 07:11 | XMS_ITS | CCD ---
Author Organization [facility] CliniSyct Care Team Providers Care Knot Tying Operator Name Role Phone MAHDI, BLAINE Unavailable Unavailable MAHDI, BLANIE Unavailable Unavailable MAHDI, BLAINE Unavailable Unavailable MAHDI, BLAINE Unavailable Unavailable AICHHOLZ, CONTINUITY PERSON BRUNILDA Primary Care Unavailable MISC, DOCTOR Attending Unavailable MISC, DR SMIHT Consulting Unavailable MISC, DR SMITH Admitting Unavailable AICHHOLZ, CONTINUITY PERSON BRUNILDA Consulting Unavailable AICHHOLZ, CONTINUITY PERSON BRUNILDA Admitting Unavailable AICHHOLZ, CONTINUITY PERSON BRUNILDA Primary Care Unavailable AICHHOLZ, CONTINUITY PERSON BRUNILDA Attending Unavailable MISC, DR SMITH Admitting Unavailable AICHHOLZ, CONTINUITY PERSON BRUNILDA Primary Care Unavailable MISC, DR SMITH Attending Unavailable MISC, DR SMITH Consulting Unavailable AICHHOLZ, CONTINUITY PERSON BRUNILDA Attending Unavailable AICHHOLZ, CONTINUITY PERSON BRUNILDA Consulting Unavailable AICHHOLZ, CONTINUITY PERSON BRUNILDA Primary Care Unavailable AICHHOLZ, CONTINUITY PERSON BRUNILDA Admitting Unavailable AICHHOLZ, CONTINUITY PERSON BRUNILDA Primary Care Unavailable MISC, DR SMITH Attending Unavailable MISC, DR SMITH Consulting Unavailable AICHHOLZ, CONTINUITY PERSON BRUNILDA Admitting Unavailable AICHHOLZ, CONTINUITY PERSON BRUNILDA Primary Care Unavailable THERESA, DR KAPOOR Admitting Unavailable KOKO, DR KALEIGH Jameson Consulting Unavailable CARDENAS, DR KAPOOR Attending Unavailable CARDENAS, DR KAPOOR Consulting Unavailable MISC, DR SMITH Attending Unavailable AICHHOLZ, CONTINUITY PERSON BRUNILDA Primary Care Unavailable MISC, DR SMITH Consulting Unavailable MISC, DR SMITH Admitting Unavailable Aichholz CARGO CHECKER-GENI, Brunilda Altagracia Primary Care Provider Aichholz DIRECTOR OF VENDOR MANAGEMENT, Brunilda Unavailable Jerry Shah MD Primary Care Provider [phone] AICHHOLZ, BRUNILDA Attending Unavailable AICHHOLZ, BRUNILDA Attending Unavailable Aichholz DIRECTOR OF VENDOR MANAGEMENT-C, Brunilda J Primary Care Provider [phone] Milton LARA, Brunilda Frias Attending Provider [phone] Allergies Allergy ClassificationReported Allergen(s)Allergy TypeDate of OnsetReaction(s) Facility (12 sources)Penicillins; Translations: [PENICILLINS]Propensity to adverse reactions to drug (disorder)46-09-2592Uggs, UnknownMer[facility] (11 sources)PiroxicamDrug Cmgpvtu00-09-3244PigvarltSmsCdxegy Health System Medications Current Medications MedicationDrug Class(es)DatesSig (Normalized)Sig (Original)acetaminophen 325 mg oral tablet (1 source)Start: 01-85-8234xznb 2 tablets by mouth every six hours as needed acetaminophen (TYLENOL) 325 mg tablet Take 650 mg by mouth every 6 (six) hours as needed. 0 10/30/2016 Active0.8 ml adalimumab 50 mg/ml prefilled syringe (11 sources)Tumor Necrosis Factor BlockerStart: 78-74-8214Lvegdxlzpl (Humira) 40 mg/0.8 mL syringe kit Active [...] acid 70 mg oral tablet (5 sources)BisphosphonateStart: 75-52-3949ftsd 1 tablet by mouth every week Alendronate (Fosamax) 70 mg tablet Active 70 MG PO every week July 13, 2025 12:00am Complieswith drug therapyStart: 19-75-0687inpfdptgrrs (Fosamax) 70 MG tablet Take 70 mg by mouth every 7 (seven) days 11/28/2024 Activeallopurinol 300 mg oral tablet (11 sources)Xanthine Oxidase InhibitorStart: 43-90-7962qeep 1 tablet by mouth once dailyAllopurinol 300 mg tablet Active 300 MG PO Daily July 13, 2025 12:00am Complies with drug therapyStart: 61-65-7074hfun 1 tablet by mouth in the morningallopurinol (Zyloprim) 300 MG tablet Take 1 tablet by mouth in the morning. 09/30/2023 Activecalcium citrate/vitamin D3 (CITRACAL REGULAR ORAL) (1 source)take 2 tablets by mouth once dailycalcium citrate/vitamin D3 (CITRACAL REGULAR ORAL) Take 2 tablets by mouth daily. 0 Activecalcium polycarbophil 625 mg oral tablet (11 sources)Start: 12-44-0675Sacohrn Polycarbophil 625 mg tablet Active 1250 MG PO Daily July 13, 2025 12:00am Complies with drug therapytake 1 tablet by mouth in the morningCalcium Polycarbophil (fiber) 625 MG tablet Take 625 mg by mouth in the morning. Activecetirizine hydrochloride 10 mg oral tablet (11 sources)Histamine-1 Receptor AntagonistStart: 70-01-7421bstr 1 tablet by mouth once daily as [...] Activecolchicine 0.6 mg oral tablet (13 sources)Start: 87-32-1182onpa 1 tablet by mouth once daily as needed Colchicine 0.6 mg tablet Active 0.6 MG PO Daily as needed for gout July 13, 2025 12:00am Complies with drug therapyStart: 57-33-2016lnbnoaafxx 0.6 MG tablet Take 0.6 mg by mouth As directed 05/25/2024 ActiveStart: 09-30-2023 End: 69-44-3467wdck 1 capsule by mouth in the morningMitigare 0.6 MG capsule Take 1 capsule by mouth in the morning. 09/30/2023 06/12/2024 Discontinued ( Therapy completed)Start: 92-57-9517qghs 1 tablet by mouth once dailycolchicine (COLCRYS) 0.6 mg tablet Take 0.6 mg by mouth daily. 0 03/30/2017 Activedocusate sodium 100 mg oral capsule (1 source)Start: 97-41-6048rkao 1 capsule by mouth every twelve hours as needed docusate sodium (COLACE) 100 mg capsule Take 100 mg by mouth every 12 (twelve) hours as needed. 0 10/30/2016 Activefolic acid 1 mg oral tablet (14 sources)Start: 50-44-6137mnpq 1 tablet by mouth once dailyFolic Acid 1 mg tablet Active 1 MG PO Daily July 16, 2025 12:00am Complies with drug therapyStart: 11-28-2024 End: 91-45-5292ubgt 1 tablet by mouth once dailyfolic acid (Folvite) 1 MG tablet Indications: Rheumatoid arthritis with rheumatoid factor, unspecified (CMS/HCC) Take 1 tablet (1 mg) by mouth Daily 90 tablet 3 12/20/2024 03/20/2025 Active Start: 09-30-2023 End: 22-70-0225kadz 1 tablet by mouth once daily in the morningfolic acid (Folvite) 1 MG tablet Indications: Rheumatoid arthritis with positive rheumatoid factor,involving unspecified site (CMS/HCC) Take 1 tablet (1,000 mcg) by mouth Daily Take 1 tablet by mouth in the morning. 90 tablet 3 06/12/2024 09/10/2024 Activefurosemide 40 mg oral tablet (15 sources)Loop DiureticStart: 72-62-1841efww 1 tablet by mouth once daily Furosemide (Lasix) 40 mg tablet Active 40 MG PO Daily July 13, 2025 12:00am Complies with drug therapyStart: 12-13-2023 End: 51-21-5865tnus 1 tablet by mouth once dailyfurosemide (Lasix) 40 MG tablet Indications: Lower extremity edema Take 1 tablet (40 mg) by mouth Daily 90 tablet 3 12/20/2024 03/20/2025 ActiveStart: 99-67-6418xqfd 1 tablet by mouth once dailyfurosemide (LASIX) 40 mg tablet Take 40 mg by mouth daily. 0 06/13/2016 Activegabapentin 300 mg oral capsule (19 sources)Anti-epileptic AgentStart: 50-35-5504cmjt 1 capsule by mouth twice dailyGabapentin 300 mg capsule Active 300 MG PO Twice daily July 13, 2025 12:00am Complies with drug therapyStart: 12-13-2023 End: 45-87-8410byzt 1 capsule by mouth in the morninggabapentin (Neurontin) 300 MG capsule Indications: Polyneuropathy Take 1 capsule (300 mg) by mouth in the morning and 1 capsule (300 mg) before bedtime. 180 capsule 3 12/20/2024 03/20/2025 ActiveStart: 12-13-2023 End: 04-04-4796dnxk 1 capsule by mouth in the morninggabapentin (Neurontin) 100 MG capsule Indications: Polyneuropathy Take 1 capsule (100 mg) by mouth in the morning. 90 capsule 3 12/13/2023 06/12/2024 Discontinued (Ineffective)Start: 51-69-0962mzmc 1 capsule by mouth once dailygabapentin (NEURONTIN) 300 mg capsule Take 300 mg by mouth nightly. 0 06/08/2016 Activegabapentin (NEURONTIN) 100 mg capsule Take 100 mg by mouth daily. !00 mg in AM, and 300 MG in PM 0 A ctivelevothyroxine sodium 0.15 mg oral tablet (15 sources)l-ThyroxineStart: 16-83-9045uthc 1 tablet by mouth once daily Levothyroxine 150 mcg tablet Active 150 MCG PO Daily July 13, 2025 12:00am Complies with drug therapyStart: 12-13-2023 End: 78-98-7627gvei 1 tablet by mouth before mealtimelevothyroxine (Synthroid, Levoxyl) 150 MCG tablet Indications: Hypothyroidism, unspecified type (CMS/HCC) Take 1 tablet (150 mcg) by mouth in the morning. Take before meals. 90 tablet 3 12/20/2024 03/20/2025 ActiveStart: 74-05-8053uvlk 1 tablet by mouth once daily levothyroxine (SYNTHROID, LEVOTHROID) 175 MCG tablet Take 175 mcg by mouth daily. 0 08/04/2019 Activelisinopril 10 mg oral tablet (15 sources)Angiotensin Converting Enzyme InhibitorStart: 23-54-2578xxqi 1 tablet by mouth once dailyLisinopril 10 mg tablet Active 10 MG PO Daily July 13, 2025 12:00am Complies with drug therapyStart: 12-13-2023 End: 06-03-5364qnwj 1 tablet by mouth once dailylisinopril 10 [...] hydroxide 80 mg/ml oral suspension (1 source)Start: 62-22-1748vzdcxjtkd hydroxide (MILK OF MAGNESIA) 400 mg/5 mL suspension Take 15 mL by mouth. 0 10/30/2016 Activemethotrexate 2.5 mg oral tablet (11 sources)Folate Analog Metabolic InhibitorStart: 45-96-5809hcax 1 tablet by mouth every weekMethotrexate Sodium [...] mouth daily. 0 ActiveMultivitamin tablet (1 source)Start: 73-40-5486spto 1 tablet by mouth once dailyMultivitamin tablet Active 1 TAB PO Daily July 13, 2025 12:00am Complies with drug therapy omeprazole 20 mg delayed release oral capsule (13 sources)Proton Pump InhibitorStart: 04-72-8656oqax 1 capsule by mouth once dailyOmeprazole 20 mg capsule,delayed release(DR/EC) Active 20 MG PO Daily July 13, 2025 12:00am Complies with drug therapyStart: 12-13-2023 End: 45-77-9438nyak 1 capsule by mouth before mealtimeomeprazole (PriLOSEC) [address] capsule Indications: Gastroesophageal reflux disease without esophagitis Take 1 capsule (20 mg) by mouth in the morning. Take before meals. 90 capsule 3 12/20/2024 03/20/2025 Activetake 1 capsule by mouth once dailyomeprazole (PriLOSEC) 20 mg capsule Take 20 mg by mouth daily. 0 Activepotassium chloride 10 meq extended release oral tablet (15 sources)Start: 56-52-5180bohv 2 tablets by mouth twice dailyPotassium Chloride 10 mEq tablet extended release Active 20 MEQ PO Twice daily July 132:00am Complies with drug therapyStart: 46-87-3733ntluqelrw chloride CR (Klor-Con) 10 MEQ ER tablet Indications: Lower extremity edema 2 pills twice a day 360 tablet 3 12/20/2024 ActiveStart: 12-13-2023 End: 07-41-1253ycydxjlee chloride CR (Klor-Con) 10 MEQ ER tablet Indications: Lower extremity edema 2 pills twice a day2 pills twice a day 360 tablet 3 06/12/2024 12/20/2024 Discontinued (Reorder)Start: 76-49-6133ziucynywl chloride (K-DUR,KLOR-CON) 10 MEQ CR tablet Take 10 mEq by mouth daily. 0 03/30/2017 ActivepredniSONE 5 mg oral tablet (11 sources)Start: 07-90-0181ydjt 7.5 mg by mouth once dailyPrednisone 5 mg tablet Active 7.5 MG PO Daily July 13, 2025 12:00am Complies with drug therapyStart: 80-06-7625rbbw 1.5 tablets by mouth in the morningpredniSONE (Deltasone) 5 MG tablet Take 1.5 tablets by mouth in the morning. 09/30/2023 Activetake 1 tablet by mouth once dailypredniSONE (DELTASONE) 5 mg tablet Take 5 mg by mouth daily. 0 Activevitamin b12 1 mg/ml injectable solution (1 source)Vitamin X65vevktbtltnzjac (VITAMIN B-12) 1,000 mcg/mL injection Inject 1,000 mcg into the appropriate muscle every 30 (thirty) days. 0 Active Problems Active Problems Problem ClassificationProblemDateDocumented DateEpisodic/ChronicAbdominal pain (10 sources)Generalized abdominal pain; Translations: [Generalized abdominal pain]Onset: 860056-89-0344IllyodmoMhlwrh of other female genital organs (20 sources)Vulval intraepithelial neoplasia grade 3; Translations: [Carcinoma in situ of vulva]Onset: 437309-71-9172EmivlleHbhpxwba mellitus without complication (14 sources)Hyperglycemia; Translations: [Hyperglycemia, unspecified]Onset: 739567-26-5399AljdozdvWiqeyqrbyf disorders (15 sources)Gastroesophageal reflux disease without esophagitis; Translations: [Gastro-esophageal reflux disease without esophagitis]Onset: 10-06-2016 26-14-8737HdrasoyAnyijzinz hypertension (15 sources)Hypertensive disorder; Translations: [Essential (primary) hypertension]Onset: 919309-60-0088KahapmhXnun and other crystal arthropathies (20 sources)Idiopathic gout, multiple sites; Translations: [Chronic primary gouty arthritis]Onset: 543550-46-6424QhzwtywFpjemhg and fatigue (12 sources)Fatigue; Translations: [Other fatigue]Onset: EpisodicNutritional deficiencies (10 sources)Cobalamin deficiency; Translations: [Deficiency of other specified B group vitamins]Onset: 400964-49-3746VwxvtgatHkeplylzfdqzaz (11 sources)Primary generalized (osteo)arthritis; Translations: [Osteoarthritis] Onset: 611072-91-7452ZhkrzczEflukebhwjsk (16 sources)Age-related osteoporosis without current pathological fracture; Translations: [Osteoporosis]Onset: 59-77-6611OhcrlmkZqzmv aftercare (1 source)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; Translations: [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 DRUG 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]Onset: 34-64-5410UrehyzdmWzydt connective tissue disease (10 sources)H/O: osteoarthritis; Translations: [Personal history of other diseases of the musculoskeletal system and connective tissue]Onset: 12-13-2023 38-70-0779IxlnqqssTzoem connective tissue disease (1 source)Calcaneal spur; Translations: [Calcaneal spur, unspecified foot] 77-42-5020XacpcdfeGfzro nervous system disorders (14 sources)Polyneuropathy; Translations: [Polyneuropathy, unspecified]Onset: 727294-83-0562TjvhszaCnnor non-traumatic joint disorders (10 sources)Pain in left shoulder; Translations: [Pain in joint, shoulder region]Onset: 095670-99-8178XwgldpenWqjqe nutritional; endocrine; and metabolic disorders (15 sources)Body mass index 40+ - severely obese; Translations: [Body mass index (BMI) 45.0-49.9, adult]Onset: 442507-12-3310XscserxTyjfz nutritional; endocrine; and metabolic disorders (15 sources)Obesity caused by energy imbalance; Translations: [Morbid (severe) obesity due to excess calories]Onset: 228388-92-0959SxnaurlRhrfp upper respiratory disease (10 sources)Allergic rhinitis; Translations: [Allergic rhinitis, unspecified] Onset: 337584-14-1601GbbvilxVyclyuaa codes; unclassified (15 sources)Edema of lower extremity; Translations: [Localized edema]Onset: 161350-93-3659TejmysupLotlvpia codes; unclassified (10 sources)Noncompliance with treatment; Translations: [Non-compliant patient] Onset: 646624-33-5905RjvwczezKisoblxqdp arthritis and related disease (20 sources)Rheumatoid arthritis with rheumatoid factor of multiple sites without organ or systems involvement;Translations: [Rheumatoid arthritis]Onset: 10-06-2016 Resolved: 25-39-8470OngfebwDvmwmxwyf-related disorders (17 sources)Smoker; Translations: [Nicotine dependence, unspecified, uncomplicated]Onset: 10-06-2016 Resolved: 657458-23-8719HediorsWaaakuv disorders (19 sources)Hypothyroidism, unspecified; Translations: [Hypothyroidism]Onset: 83-35-6520WmscxhsIgrhjpnrcajw (1 source)Unknown / UNK(Unknown)Onset: 04-15-2018 Past or Other Problems Problem ClassificationProblemDateDocumented DateEpisodic/ChronicDiabetes mellitus without complication (9 sources)Type 2 diabetes mellitus without complication; Translations: [Type 2 diabetes mellitus without complications]Onset: 11-22-2023 Resolved: 847414-31-2594GaapibhRhas disorders (9 sources)Mood disordersOnset: 12-13-2023 Resolved: Other connective tissue disease (9 sources)Calcaneal spur of left foot; Translations: [Calcaneal spur, left foot]Onset: 998478-98-9229PlmkafhnDpbhj nutritional; endocrine; and metabolic disorders (9 sources)Morbid obesity; Translations: [Morbid (severe) obesity due to excess calories]Onset: 10-06-2016 Resolved: 092148-67-6024NegsucxUlysyhtw codes; unclassified (11 sources)Tobacco user; Translations: [Tobacco use]Onset: 12-13-2023 Resolved: 336779-59-4029Pwizvtdn Results Test NameValueInterpretationReference RangeFacilityALL CBC WITH AUTO DIFFon 87-08-7540AQDIKIMTZ ABSOLUTE VUXZ8CKYH HealthcareBasophils/100 WBC (Bld)0.3 %0.2 - 2.0 %NOMLake Regional Health SystemEosinophils/100 WBC (Bld)6.1 %0.9 - 7.0 %[facility] Erythrocyte distribution width (RBC) [Ratio]14.9 %11.0 - 15.0 %[facility] Hematocrit (Bld) [Volume fraction]46.7 %36.0 - 48.0 %[facility] CenterHemoglobin (Bld) [Mass/Vol]15 g/dL12.0 - 16.0 g/dLNOSaint Luke's North Hospital–Barry RoadIMMATURE GRANULOCYTES ABS AUTO0.02NOSaint Luke's [facility] Hospital–Barry RoadImmature granulocytes/100 WBC (Bld)0.3 %0.0 - 0.5 %[facility] CenterInterpretation and review of laboratory resultsAbnormalNOSaint [facility]'s [facility] LYMPHOCYTES ABSOLUTE AUTO1.9NOSaint Luke's North Hospital–Barry RoadLymphocytes/100 WBC (Bld)26 %20.5 - 60.0 %[facility] CenterMCH (RBC) [Entitic mass]33.6 pg26.7 - 34.0 pgNOSouthPointe HospitalHC (RBC) [Mass/Vol]32.1 g/dL29.9 - 35.2 g/dLJohn J. Pershing VA Medical CenterMCV (RBC) [Entitic vol]104.5 dPQrhb93.0 - 99.0 fLNOSaint Luke's North Hospital–Barry RoadMONOCYTES ABSOLUTE AUTO 0.6NOMS HealthcareMonocytes/100 WBC (Bld)7.5 %1.7 - 12.0 %[facility] NEUTROPHILS ABSOLUTE AUTO4.4NOSaint Luke's North Hospital–Barry RoadNeutrophils/100 WBC (Bld)59.8 %43.0 - 75.0 %[facility] Medical CenterPlatelet mean volume (Bld) [Entitic vol]9 fLLow9.5 - 13.5 fLJohn J. Pershing VA Medical CenterTBH EO #0.5NOMS [facility] [id number] [facility] RBC4.47 NOMFreeman Orthopaedics & Sports Medicine WBC7.3NOSaint Luke's [facility] Hospital–Barry RoadCLINISYNCNOMS HealthcareALL CBC WITH AUTO DIFFon 43-75-2907NIAFUYMRT ABSOLUTE GIQO1YHNSSaint Luke's North Hospital–Barry RoadBasophils/100 WBC (Bld)0.3 %0.2 - 2.0 %[facility] CenterEosinophils/100 WBC (Bld)4.4 %0.9 - 7.0 % [facility] Medical CenterErythrocyte distribution width (RBC) [Ratio]14.6 %11.0 - 15.0 % [facility] Medical CenterHematocrit (Bld) [Volume fraction]47.5 %36.0 - 48.0 %[facility] CenterHemoglobin (Bld) [Mass/Vol]15.3 g/dL12.0 - 16.0 g/dLJohn J. [facility]hing [facility] IMMATURE GRANULOCYTES ABS AUTO0.03NOSaint Luke's North Hospital–Barry RoadImhiture granulocytes/100 WBC (Bld)0.4 %0.0 - 0.5 %[facility] CenterInterpretation and review of laboratory resultsAbnormalJohn J. Pershing VA Medical CenterLYMPHOCYTES ABSOLUTE AUTO1.3NOSaint Luke's [facility]ry Road Lymphocytes/100 WBC (Bld)15.8 %Low20.5 - 60.0 %[facility] CenterH (RBC) [Entitic mass]33.7 pg26.7 - 34.0 pgSaint Louis University Health Science CenterHC (RBC) [Mass/Vol]32.2 g/dL29.9 - 35.2 g/dLSaint Louis University Health Science CenterV (RBC) [Entitic vol]104.6 gFQols87.0 - 99.0 fLJohn J. Pershing VA Medical CenterMONOCYTES ABSOLUTE AUTO0.5NOSaint Luke's North Hospital–Barry RoadMonocytes/100 WBC (Bld)6.4 % 1.7 - 12.0 %[facility] CenterNEUTROPHILS ABSOLUTE AUTO5.8NOWY [facility] Neutrophils/100 WBC (Bld)72.7 %43.0 - 75.0 %[facility] HealthcarePlatelet mean volume (Bld) [Entitic vol]9.1 fLLow9.5 - 13.5 fLNOWY HealthcareTBH EO #0.4NOMS HealthcareTBH [id number] [facility] HospitalTB RBC4.54NOMS [facility] HospitalTB [id number] HealthcareCLINISYNCNOMS HealthcareMLR HEMOGLOBIN A1Con 91-00-6877Kkpbujy [Mass/Vol]111 mg/dLNOSaint Luke's North Hospital–Barry RoadMijqjmyzyeAeH9a (Bld) [Mass fraction]5.5 %4.5 - 6.2 % [facility] HealthcareComment on above:ADA RECOMMENDED LIMIT 4.0 - 6.0 ADA THERAPEUTIC TARGET < 7.0 ACTION SUGGESTED > 7.0 CLINISYNCNOSaint Luke's North Hospital–Barry RoadCBC AUTO DIFFon 07-62-1558NOVV #0.0 103/ulNormal0.0-0.1 [facility] HospitalComment on above:Performed By: #### TSH #### [facility] [address] [place] [address] Dr. Marla VarnerBasophils/100 WBC (Bld)0.1 %Critically low0.2-2.0The Premier HealthComment on above:Performed By: #### TSH #### [facility] [address] [place] [address] Dr. Marla Velasquez #0.3 103/ulNormal0.0-0.7The Premier HealthComment on above: Performed By: #### TSH #### [facility] [address] [place] [address] Dr. Marla Schultzosinophils/100 WBC (Bld)4.6 %Normal0.9-7.0[facility] Comment on above:Performed By: #### TSH #### [facility] [address] [place] [address] Dr. Marla Schultzrythrocyte distribution width (RBC) [Ratio]14.6 %Ijrkqi38.0-15.0 [facility] HospitalComment on above:Performed By: #### TSH #### [facility] [address] [place] [address] Dr. Marla VarnerHematocrit (Bld) [Volume fraction]46.0 %Dvfatb22.0-48.0The Premier HealthComment on above:Performed By: #### TSH #### [facility] [address] [place] [address] Dr. Marla VarnerHemoglobin (Bld) [Mass/Vol]15.1 g/uEKrxwte83.0-16.0The Premier HealthComment on above:Performed By: #### TSH #### [facility] [address] [place] [address] Dr. Marla VarnerIG #0.01 10e3/ulNormal0.00-0.03The [facility] HealthCommcl[facility] on above:Performed By: #### TSH #### [facility] [address] [place] [address] Dr. Marla VarnerIG %0.1 %Normal0.0-0.5The Premier HealthComment on above: Performed By: #### TSH #### [facility] [address] [place] [address] Dr. Marla Irby #1.3 103/ulNormal1.2-3.8The [facility] HealthCommclaren [facility] on above:Performed By: #### TSH #### [facility] [address] [place] [address] Dr. Marla Hydemphocytes/100 WBC (Bld)19.7 %Critically low20.5-60.0The [facility] HealthCommclaren [facility] on above:Performed By: #### TSH #### [facility] [address] [place] [address] Dr. Marla VarnerMANUAL DIFF REQNONormalThe Premier HealthComment on above: Performed By: #### TSH #### [facility] [address] [place] [address] Dr. Marla Townsend (RBC) [Entitic mass]33.6 upFwwajn50.7-34.0The Premier HealthComment on above:Performed By: #### TSH #### [facility] [address] [address] [address] Marla McgrathHC (RBC) [Mass/Vol]32.8 g/xTXjwmxz45.9-35.2The Premier HealthComment on above:Performed By: #### TSH #### [facility] [address] [place] [address] Dr. Marla McgrathV (RBC) [Entitic vol]102.4 fLCritically high81.0-99.0The Premier HealthComment on above:Performed By: #### TSH #### [facility] [address] [place] [address] Dr. Marla Morales #0.5 103/ulNormal0.3-0.8The Premier HealthComment on above:Performed By: #### TSH #### [facility] [address] [place] [address] Dr. Marla Messinaocytes/100 WBC (Bld)7.3 %Normal1.7-12.0The [facility] Comment on above:Performed By: #### TSH #### [facility] [address] [place] [address] Dr. Marla Dave #4.6 103/ulNormal1.4-6.5The [facility] HealthComment on above:Performed By: #### TSH #### [facility] [address] [place] [address] Dr. Marla Mcallisterutrophils/100 WBC (Bld)68.2 %Sgkpsx98.0-75.0The [facility] HealthComment on above:Performed By: #### TSH #### [facility] [address] [place] [address] Dr. Marla Obrienlet mean volume (Bld) [Entitic vol]9.1 fLCritically low 9.5-13.5The [facility] HealthComment on above:Performed By: #### TSH #### [facility] [address] [place] [address] Dr. Marla VarnerPLT194 103/agMbjood166-794Jvm Premier HealthComment on above: Performed By: #### TSH #### [facility] [address] [place] [address] Dr. Marla VarnerRBC4.49 106/ulNormal4.20-5.40The [facility] on above:Performed By: #### TSH #### [facility] [address] [place] [address] Dr. Marla VarnerWBC6.7 103/ulNormal4.0-11.0The [facility] Centerment on above: Performed By: #### TSH #### [facility] [address] [place] [address] Dr. Marla BeardF 14(COMP METB)on 20-62-7562Lqjvwbl [Mass/Vol]3.6 g/dLNormal 3.4-5.0The [facility] on above:Performed By: #### URIC, CMP #### [facility] [address] [place] [address] Dr. Marla VarnerAlbumin/Globulin [Mass ratio]1.0 {ratio}NormalThe [facility] on above:Performed By: #### URIC, CMP #### [facility] [address] [place] [address] Dr. Marla Bynum [Catalytic activity/Vol]93 U/UOmqtlz82-706Pcj [facility] [facility] on above:Performed By: #### URIC, CMP #### [facility] [address] [place] [address] Dr. Marla Altamirano [Catalytic activity/Vol]26 U/SSmmgmo15-20Egx [facility] on above:Performed By: #### URIC, CMP #### [facility] [address] [place] [address] Dr. Marla Rowell gap [Moles/Vol]12.3 mmol/LNormalThe [facility] on above:Performed By: #### URIC, CMP #### [facility] [address] [place] [address] Dr. Marla Reyes [Catalytic activity/Vol]20 U/RNnrrex06-67Yok [facility] HospitalComment on above:Performed By: #### URIC, CMP #### [facility] [address] [address] [address] Marla VarnerBilirubin [Mass/Vol]0.4 mg/dLNormal0.2-1.0The [facility] Comment on above:Performed By: #### URIC, CMP #### [facility] [address] [place] [address] Dr. Marla VarnerCalcium [Mass/Vol]9.2 mg/dLNormal8.5-10.1The [facility] Comment on above:Performed By: #### URIC, CMP #### [facility] [address] [place] [address] Dr. Marla VarnerChloride [Moles/Vol]102 mmol/KGiuvlt79-028Stp [facility] Comment on above:Performed By: #### URIC, CMP #### [facility] [address] [place] [address] Dr. Marla VarnerCO2 [Moles/Vol]32.3 mmol/LCritically high21.0-32.0The [facility]Comment on above:Performed By: #### URIC, CMP #### [facility] [address] [place] [address] Dr. Marla VarnerCreatinine [Mass/Vol]0.84 mg/dLNormal0.55-1.02The [facility] HealthComment on above:Performed By: #### URIC, CMP #### [facility] [address] [place] [address] Dr. Marla SchultzGFR-AF ISRAELI>60Normal>=60The [facility] HealthComment on above:Performed By: #### URIC, CMP #### [facility] [address] [place] [address] Dr. Marla SchultzGFR-NON AF ISRAELI>60Normal>=60The [facility] on above:Performed By: #### URIC, CMP #### [facility] [address] [place] [address] Dr. Marla VarnerGlobulin (S) [Mass/Vol]3.7 g/dLNormalThe [facility] HospitalComment on above:Performed By: #### URIC, CMP #### [facility] [address] [address] [address] Marla VarnerGlucose [Mass/Vol]114 mg/dLCritically quds89-054Mlp [facility] HealthComment on above:Performed By: #### URIC, CMP #### [facility] [address] [place] [address] Dr. Marla VarnerPotassium [Moles/Vol]4.6 mmol/LNormal3.5-5.1The [facility] Comment on above:Performed By: #### URIC, CMP #### [facility] [address] [place] [address] Dr. Marla VarnerProtein [Mass/Vol]7.3 g/dLNormal6.4-8.2[facility] Comment on above:Performed By: #### URIC, CMP #### [facility] [address] [place] [address] Dr. Marla VarnerSodium [Moles/Vol]142 mmol/CGbltdy378-906Ray [facility] Comment on above:Performed By: #### URIC, CMP #### [facility] [address] [place] [address] Dr. Marla VarnerUrea nitrogen [Mass/Vol]15.0 mg/dLNormal7.0-18.0The [facility] HealthComment on above:Performed By: #### URIC, CMP #### [facility] [address] [place] [address] Dr. Marla Vital nitrogen/Creatinine [Mass ratio]17.9 mg/mgNoOur Lady of Mercy HospitalComment on above:Performed By: #### URIC, CMP #### [facility] [address] [place] [address] Dr. Marla VarnerSED RATE WESTERGRENon 35-56-2734JYM RATE47 mm/hrCritically high <=30The [facility] HealthComment on above:Performed By: #### SEDR #### [facility] [address] [place] [address] Dr. Marla Leavitt ACID SERUMon 84-99-5649Rnddm [Mass/Vol]3.3 mg/dLNormal 2.6-6.0The [facility] HealthComment on above:Performed By: #### URIC, CMP #### [facility] [address] [place] [address] Dr. Marla Lowe AUTO DIFFon 51-48-7125QDRZ #0.0 103/ulNormal0.0-0.1The [facility] HealthComment on above:Performed By: #### INSULT #### [facility] [address] [place] [address] Dr. Marla VarnerBasophils/100 WBC (Bld)0.3 %Normal0.2-2.0The [facility] Comment on above:Performed By: #### INSULT #### [facility] [address] [place] [address] Dr. Gutiérrez ChangEO #0.4 103/ulNormal0.0-0.7The [facility] HealthComment on above: Performed By: #### INSULT #### [facility] [address] [place] [address] Dr. Marla Schultzosinophils/100 WBC (Bld)5.8 %Normal0.9-7.0The [facility] Comment on above:Performed By: #### INSULT #### [facility] [address] [place] [address] Dr. Marla Schultzrythrocyte distribution width (RBC) [Ratio]14.8 %Hzjcsw24.0-15.0 The [facility] HealthComment on above:Performed By: #### INSULT #### [facility] [address] [place] [address] Dr. Marla VarnerHematocrit (Bld) [Volume fraction]44.4 %Yisnds88.0-48.0The [facility] HealthComment on above:Performed By: #### INSULT #### [facility] [address] [place] [address] Dr. Marla VarnerHemoglobin (Bld) [Mass/Vol]14.6 g/eJQotcdw65.0-16.0The [facility] HospitalComment on above:Performed By: #### INSULT #### [facility] [address] [address] [address] Marla Quezada #0.02 10e3/ulNormal0.00-0.03The [facility] on above:Performed By: #### INSULT #### [facility] [address] [place] [address] Dr. Marla Quezada %0.3 %Normal0.0-0.5The [facility] HealthComment on above: Performed By: #### INSULT #### [facility] [address] [place] [address] Dr. Marla Irby #1.6 103/ulNormal1.2-3.8The [facility] on above:Performed By: #### INSULT #### [facility] [address] [place] [address] Dr. Marla Ibarrahocytes/100 WBC (Bld)21.6 %Ophzhv33.5-60.0The [facility] on above:Performed By: #### INSULT #### [facility] [address] [place] [address] Dr. Marla TranUAL DIFF REQNONormalThe [facility] on above: Performed By: #### INSULT #### [facility] [address] [place] [address] Dr. Marla Mcgrath (RBC) [Entitic mass]33.8 ctNznrhq29.7-34.0The [facility] HealthComment on above:Performed By: #### INSULT #### [facility] [address] [place] [address] Dr. Marla Mcgrath (RBC) [Mass/Vol]32.9 g/gUGamnto00.9-35.2The [facility]ment on above:Performed By: #### INSULT #### [facility] [address] [place] [address] Dr. Marla Mcgrath (RBC) [Entitic vol]102.8 fLCritically high81.0-99.0The [facility] HospitalComment on above:Performed By: #### INSULT #### [facility] [address] [address] [address] Marla Morales #0.5 103/ulNormal0.3-0.8The [facility] HealthComment on above:Performed By: #### INSULT #### [facility] [address] [address] [address] Marla Messinaocytes/100 WBC (Bld)6.9 %Normal1.7-12.0The [facility] Comment on above:Performed By: #### INSULT #### [facility] [address] [place] [address] Dr. Marla Dave #4.7 103/ulNormal1.4-6.5The [facility] HealthComment on above:Performed By: #### INSULT #### [facility] [address] [place] [address] Dr. Marla Mcallisterutrophils/100 WBC (Bld)65.1 %Bgywms71.0-75.0The [facility] HealthComment on above:Performed By: #### INSULT #### [facility] [address] [place] [address] Dr. Marla Walden mean volume (Bld) [Entitic vol]9.3 fLCritically low 9.5-13.5The [facility] HealthComment on above:Performed By: #### INSULT #### [facility] [address] [place] [address] Dr. Marla VarnerPLT200 103/syJuzpzu964-054Xzz [facility] HealthComment on above: Performed By: #### INSULT #### [facility] [address] [place] [address] Dr. Marla VarnerRBC4.32 106/ulNormal4.20-5.40The [facility] HealthComment on above:Performed By: #### INSULT #### [facility] [address] [place] [address] Dr. Marla VarnerWBC7.2 103/ulNormal4.0-11.0The [facility] HealthComment on above: Performed By: #### INSULT #### [facility] [address] [place] [address] Dr. Marla Love T3on 34-83-9004LTDH T32.20 pg/mlLNormal2.18-3.98The [facility]ment on above:Performed By: #### TSH #### [facility] [address] [place] [address] Dr. Marla Love T4on 67-07-1361Berl T4 [Mass/Vol]1.30 ng/dLNormal0.76-1.46 The [facility] HealthComment on above:Performed By: #### TSH #### [facility] [address] [place] [address] Dr. Marla Solis 14(COMP METB)on 37-59-0985Zoaoiff [Mass/Vol]3.4 g/dLNormal 3.4-5.0The [facility] HealthComment on above:Performed By: #### CMP, URIC #### [facility] [address] [place] [address] Dr. Marla VarnerAlbumin/Globulin [Mass ratio]0.9 {ratio}NormalThe [facility] Centerment on above:Performed By: #### CMP, URIC #### [facility] [address] [place] [address] Dr. Marla Bynum [Catalytic activity/Vol]92 U/MJltyqb92-621Gns [facility] Centerment on above:Performed By: #### CMP, URIC #### [facility] [address] [place] [address] Dr. Marla Altamirano [Catalytic activity/Vol]17 U/XFsizyo01-43Oio [facility] Centerment on above:Performed By: #### CMP, URIC #### [facility] [address] [place] [address] Dr. Marla Rowell gap [Moles/Vol]10.7 mmol/LNormalThe [facility] on above:Performed By: #### CMP, URIC #### [facility] [address] [address] [address] Marla VarnerAST [Catalytic activity/Vol]17 U/PSqspui64-95Yzo [facility] HealthComment on above:Performed By: #### CMP, URIC #### [facility] [address] [address] [address] Marla VarnerBilirubin [Mass/Vol]0.4 mg/dLNormal0.2-1.0The [facility] Comment on above:Performed By: #### CMP, URIC #### [facility] [address] [place] [address] Dr. Marla VarnerCalcium [Mass/Vol]8.8 mg/dLNormal8.5-10.1The [facility] Comment on above:Performed By: #### CMP, URIC #### [facility] [address] [place] [address] Dr. Marla VarnerChloride [Moles/Vol]101 mmol/RRunjts15-102Lfl [facility] Comment on above:Performed By: #### CMP, URIC #### [facility] [address] [place] [address] Dr. Marla VarnerCO2 [Moles/Vol]32.5 mmol/LCritically high21.0-32.0The [facility] HealthComment on above:Performed By: #### CMP, URIC #### [facility] [address] [place] [address] Dr. Marla VarnerCreatinine [Mass/Vol]0.72 mg/dLNormal0.55-1.02The [facility] HealthComment on above:Performed By: #### CMP, URIC #### [facility] [address] [place] [address] Dr. Marla SchultzGFR-AF ISRAELI>60Normal>=60The [facility] HealthComment on above:Performed By: #### CMP, URIC #### [facility] [address] [place] [address] Dr. Marla SchultzGFR-NON AF ISRAELI>60Normal>=60The [facility] HealthComment on above:Performed By: #### CMP, URIC #### [facility] [address] [address] [address] Marla VarnerGlobulin (S) [Mass/Vol]3.8 g/dLNormSelect Medical Specialty Hospital - AkronComment on above:Performed By: #### CMP, URIC #### [facility] [address] [address] [address] Marla VarnerGlucose [Mass/Vol]101 mg/aRGvxurx78-683Vum [facility] Comment on above:Performed By: #### CMP, URIC #### [facility] [address] [address] [address] Marla VarnerPotassium [Moles/Vol]4.2 mmol/LNormal3.5-5.1The [facility] Comment on above:Performed By: #### CMP, URIC #### [facility] [address] [address] [address] Marla VarnerProtein [Mass/Vol]7.2 g/dLNormal6.4-8.2The [facility] Comment on above:Performed By: #### CMP, URIC #### [facility] [address] [address] [address] Marla VarnerSodium [Moles/Vol]140 mmol/MHezywa654-141Wbw [facility] Comment on above:Performed By: #### CMP, URIC #### [facility] [address] [address] [address] Marla VarnerUrea nitrogen [Mass/Vol]11.0 mg/dLNormal7.0-18.0The [facility] HealthComment on above:Performed By: #### CMP, URIC #### [facility] [address] [address] [address] Marla Vital nitrogen/Creatinine [Mass ratio]15.3 mg/mgNoOur Lady of Mercy HospitalComment on above:Performed By: #### CMP, URIC #### [facility] [address] [address] [address] Marla Noel RATE WESTERGRENon 98-24-2097ADW RATE51 mm/hrCritically high <=30The [facility] HealthComment on above:Performed By: #### SEDR #### [facility] [address] [place] [address] Dr. Marla PattonHocharleen 40-29-0638JFA2.307 uIU/mLNormal0.358-3.740The [facility] HealthComment on above:Performed By: #### TSH #### [facility] [address] [place] [address] Dr. Marla VarnerURIC ACID SERUMon 32-29-5039Azkvo [Mass/Vol]3.2 mg/dLNormal 2.6-6.0The [facility] HealthComment on above:Performed By: #### CMP, URIC #### [facility] [address] [place] [address] Dr. Marla VarnerINSULIN FREE AND TOTALon 54-59-9542Augm Uqcikas50 uU/mLNormalCleveland Clinic Lutheran HospitalComment on above:Result Comment: Reference Range: Pubertal Children and Adults (fasting): 0 - 17Performed By: #### INSULT #### [facility] [address] [place] [address] Dr. Marla VarnerTotal Wpfkmtt35 uU/mLNormalCleveland Clinic Lutheran HospitalCommclaren bay special care hospital on above: Result Comment: Non-Diabetic: In [...] developed and its performance characteristics determined by [employer]. It has not been cleared or approved by the Food and Drug Administration.Performed By: #### INSULT #### [facility] [address] [place] [address] Dr. Marla VarnerCBC AUTO DIFFon 98-48-1845JKWY #0.0 103/ulNormal0.0-0.1The [facility] on above:Performed By: #### TSH #### [facility] [address] [address] [address] Marla VarnerBasophils/100 WBC (Bld)0.3 %Normal0.2-2.0The [facility] Comment on above:Performed By: #### TSH #### [facility] [address] [address] [address] Marla Velasquez #0.2 103/ulNormal0.0-0.7The [facility] HealthComment on above: Performed By: #### TSH #### [facility] [address] [place] [address] Dr. Marla Schultzosinophils/100 WBC (Bld)2.7 %Normal0.9-7.0The [facility] Comment on above:Performed By: #### TSH #### [facility] [address] [place] [address] Dr. Marla Schultzrythrocyte distribution width (RBC) [Ratio]14.8 %Uzksyp52.0-15.0 The [facility] HealthComment on above:Performed By: #### TSH #### [facility] [address] [place] [address] Dr. Marla VarnerHematocrit (Bld) [Volume fraction]47.6 %Hnvowi36.0-48.0The [facility] HealthComment on above:Performed By: #### TSH #### [facility] [address] [place] [address] Dr. Marla VarnerHemoglobin (Bld) [Mass/Vol]15.4 g/vOGdzqzk68.0-16.0The [facility] HealthComment on above:Performed By: #### TSH #### [facility] [address] [place] [address] Dr. Marla Quezada #0.03 10e3/ulNormal0.00-0.03The [facility] HealthComment on above:Performed By: #### TSH #### [facility] [address] [place] [address] Dr. Marla Quezada %0.4 %Normal0.0-0.5The [facility] HealthComment on above: Performed By: #### TSH #### [facility] [address] [address] [address] Marla Irby #1.6 103/ulNormal1.2-3.8The [facility]Comm[facility] on above:Performed By: #### TSH #### [facility] [address] [place] [address] Dr. Marla Ibarrahocytes/100 WBC (Bld)21.1 %Hjildk09.5-60.0The [facility]Comm[facility] on above:Performed By: #### TSH #### [facility] [address] [place] [address] Dr. Marla Rivas DIFF REQNONormalThe [facility]Commclaren [facility] on above: Performed By: #### TSH #### [facility] [address] [place] [address] Dr. Marla Mcgrath (RBC) [Entitic mass]34.2 pgCritically high26.7-34.0The [facility] on above:Performed By: #### TSH #### [facility] [address] [place] [address] Dr. Marla Mcgrath (RBC) [Mass/Vol]32.4 g/cNZxopdx65.9-35.2The [facility] on above:Performed By: #### TSH #### [facility] [address] [place] [address] Dr. Marla Mcgrath (RBC) [Entitic vol]105.8 fLCritically high81.0-99.0The [facility] on above:Performed By: #### TSH #### [facility] [address] [place] [address] Dr. Marla Morales #0.5 103/ulNormal0.3-0.8The [facility] on above:Performed By: #### TSH #### [facility] [address] [place] [address] Dr. Marla Messinaocytes/100 WBC (Bld)7.4 %Normal1.7-12.0The [facility] Comment on above:Performed By: #### TSH #### [facility] [address] [place] [address] Dr. Marla McallisterUT #5.0 103/ulNormal1.4-6.5The [facility] HealthComment on above:Performed By: #### TSH #### [facility] [address] [place] [address] Dr. Marla Mcallisterutrophils/100 WBC (Bld)68.1 %Wdktbj91.0-75.0The [facility] HealthComment on above:Performed By: #### TSH #### [facility] [address] [place] [address] Dr. Marla Walden mean volume (Bld) [Entitic vol]10.5 fLNormal9.5-13.5The [facility] HealthComment on above:Performed By: #### TSH #### [facility] [address] [place] [address] Dr. Marla VarnerPLT207 103/zrKyuedb236-925Gkz Premier HealthComment on above: Performed By: #### TSH #### [facility] [address] [place] [address] Dr. Marla VarnerRBC4.50 106/ulNormal4.20-5.40The [facility] HealthComment on above:Performed By: #### TSH #### [facility] [address] [place] [address] Dr. Marla VarnerWBC7.3 103/ulNormal4.0-11.0The [facility] HealthComment on above: Performed By: #### TSH #### [facility] [address] [place] [address] Dr. Marla Love T4on 18-62-3787Zsyz T4 [Mass/Vol]1.75 ng/dLCritically high 0.76-1.46The [facility] HealthComment on above:Performed By: #### TSH #### [facility] [address] [place] [address] Dr. Yilan ChangPROF 14(COMP METB)on 79-01-7173Elvsswn [Mass/Vol]3.7 g/dLNormal 3.4-5.0The [facility] HealthComment on above:Performed By: #### INSULT #### [facility] [address] [place] [address] Dr. Marla VarnerAlbumin/Globulin [Mass ratio]1.0 {ratio}NormalThe Premier HealthComment on above:Performed By: #### INSULT #### [facility] [address] [place] [address] Dr. Marla GarcíaP [Catalytic activity/Vol]99 U/OLqyqwa35-523Upm [facility] HealthComment on above:Performed By: #### INSULT #### [facility] [address] [place] [address] Dr. Marla GarcíaT [Catalytic activity/Vol]25 U/ZVyhofh21-45Cfa [facility] HealthComment on above:Performed By: #### INSULT #### [facility] [address] [place] [address] Dr. Marla Farraron gap [Moles/Vol]15.7 mmol/LNormalThe [facility] Comment on above:Performed By: #### INSULT #### [facility] [address] [place] [address] Dr. Marla VarnerAST [Catalytic activity/Vol]20 U/CHxbuwu79-69Eqo [facility] HealthComment on above:Performed By: #### INSULT #### [facility] [address] [place] [address] Dr. Marla VarnerBilirubin [Mass/Vol]0.4 mg/dLNormal0.2-1.0The [facility] Comment on above:Performed By: #### INSULT #### [facility] [address] [place] [address] Dr. Marla VarnerCalcium [Mass/Vol]8.9 mg/dLNormal8.5-10.1The [facility] Comment on above:Performed By: #### INSULT #### [facility] [address] [place] [address] Dr. Marla VarnerChloride [Moles/Vol]99 mmol/WVwaiep63-005Jsq [facility] Comment on above:Performed By: #### INSULT #### [facility] [address] [place] [address] Dr. Marla VarnerCO2 [Moles/Vol]25.3 mmol/MLeyxsh82.0-32.0The [facility] Comment on above:Performed By: #### INSULT #### [facility] [address] [place] [address] Dr. Marla VarnerCreatinine [Mass/Vol]0.80 mg/dLNormal0.55-1.02The [facility] HealthComment on above:Performed By: #### INSULT #### [facility] [address] [place] [address] Dr. Marla SchultzGFR-AF ISRAELI>60Normal>=60The [facility] HealthComment on above:Performed By: #### INSULT #### [facility] [address] [place] [address] Dr. Marla SchultzGFR-NON AF ISRAELI>60Normal>=60The [facility] HealthComment on above:Performed By: #### INSULT #### [facility] [address] [place] [address] Dr. Marla VarnerGlobulin (S) [Mass/Vol]3.6 g/dLNormalThe [facility] HealthComment on above:Performed By: #### INSULT #### [facility] [address] [place] [address] Dr. Marla VarnerGlucose [Mass/Vol]113 mg/dLCritically kdma90-673Djf [facility] HealthComment on above:Performed By: #### INSULT #### [facility] [address] [place] [address] Dr. Marla VarnerPotassium [Moles/Vol]4.0 mmol/LNormal3.5-5.1The [facility] Comment on above:Performed By: #### INSULT #### [facility] [address] [place] [address] Dr. Marla VarnerProtein [Mass/Vol]7.3 g/dLNormal6.4-8.2The [facility] Comment on above:Performed By: #### INSULT #### [facility] [address] [place] [address] Dr. Marla VarnerSodium [Moles/Vol]136 mmol/EUwqgpf703-490Njg [facility] Comment on above:Performed By: #### INSULT #### [facility] [address] [place] [address] Dr. Marla VarnerUrea nitrogen [Mass/Vol]10.0 mg/dLNormal7.0-18.0The [facility] HealthComment on above:Performed By: #### INSULT #### [facility] [address] [place] [address] Dr. Marla Vital nitrogen/Creatinine [Mass ratio]12.5 mg/mgNormalThe [facility] HealthComment on above:Performed By: #### INSULT #### [facility] [address] [place] [address] Dr. Marla Noel RATE WESTERGRENon 59-19-2572SFY RATE34 mm/hrCritically high <=30The [facility] HealthComment on above:Performed By: #### TSH #### [facility] [address] [place] [address] Dr. Marla Joyce 46-08-6014EYS0.152 uIU/mLCritically low0.358-3.740The [facility] HealthComment on above:Performed By: #### TSH #### [facility] [address] [place] [address] Dr. Marla VarnerURIC ACID SERUMon 15-65-0207Dlqyy [Mass/Vol]3.3 mg/dLNormal 2.6-6.0The [facility] HealthComment on above:Performed By: #### INSULT #### [facility] [address] [place] [address] Dr. Marla Lowe AUTO DIFFon 79-45-5788XGHX #0.0 103/ulNormal0.0-0.1The [facility] HealthComment on above:Performed By: #### TSH #### [facility] [address] [place] [address] Dr. Marla VarnerBasophils/100 WBC (Bld)0.1 %Critically low0.2-2.0The [facility] Centerment on above:Performed By: #### TSH #### [facility] [address] [place] [address] Dr. Marla Velasquez #0.4 103/ulNormal0.0-0.7The Premier HealthComment on above: Performed By: #### TSH #### [facility] [address] [place] [address] Dr. Marla Schultzosinophils/100 WBC (Bld)5.1 %Normal0.9-7.0The [facility] Comment on above:Performed By: #### TSH #### [facility] [address] [place] [address] Dr. Marla Schultzrythrocyte distribution width (RBC) [Ratio]14.5 %Iequso12.0-15.0 The Premier HealthComment on above:Performed By: #### TSH #### [facility] [address] [place] [address] Dr. Marla VarnerHematocrit (Bld) [Volume fraction]45.7 %Bdwrlc21.0-48.0The [facility] Centerment on above:Performed By: #### TSH #### [facility] [address] [place] [address] Dr. Marla VarnerHemoglobin (Bld) [Mass/Vol]14.6 g/cHPplvce36.0-16.0The [facility] Centerment on above:Performed By: #### TSH #### [facility] [address] [place] [address] Dr. Marla Quezada #0.03 10e3/ulNormal0.00-0.03The Premier HealthComment on above:Performed By: #### TSH #### [facility] [address] [place] [address] Dr. Marla Quezada %0.4 %Normal0.0-0.5The Premier HealthComment on above: Performed By: #### TSH #### Premier [facility] [address] [address] [address] Marla Irby #0.9 103/ulCritically low1.2-3.8[facility] Comment on above:Performed By: #### TSH #### [facility] [address] [address] [address] Marla Ibarrahocytes/100 WBC (Bld)11.3 %Critically low20.5-60.0The [facility] HealthComment on above:Performed By: #### TSH #### [facility] [address] [address] [address] Marla Rivas DIFF REQNONormalThe Premier HealthComment on above: Performed By: #### TSH #### [facility] [address] [place] [address] Dr. Marla Mcgrath (RBC) [Entitic mass]33.4 xcHokikg05.7-34.0The [facility] HealthComment on above:Performed By: #### TSH #### [facility] [address] [place] [address] Dr. Marla Mcgrath (RBC) [Mass/Vol]31.9 g/ePIlmjzn71.9-35.2The [facility] HealthComment on above:Performed By: #### TSH #### [facility] [address] [place] [address] Dr. Marla Mcgrath (RBC) [Entitic vol]104.6 fLCritically high81.0-99.0The [facility] HealthComment on above:Performed By: #### TSH #### [facility] [address] [address] [address] Marla Morales #0.3 103/ulNormal0.3-0.8The [facility] HealthComment on above:Performed By: #### TSH #### [facility] [address] [place] [address] Dr. Marla Messinaocytes/100 WBC (Bld)3.9 %Normal1.7-12.0[facility] Comment on above:Performed By: #### TSH #### [facility] [address] [address] [address] Marla Dave #6.1 103/ulNormal1.4-6.5The [facility] HealthComment on above:Performed By: #### TSH #### [facility] [address] [place] [address] Dr. Marla Mcallisterutrophils/100 WBC (Bld)79.2 %Critically high43.0-75.0The [facility] HealthComment on above:Performed By: #### TSH #### [facility] [address] [place] [address] Dr. Marla VarnerPlatelet mean volume (Bld) [Entitic vol]10.4 fLNormal9.5-13.5The [facility] HealthComment on above:Performed By: #### TSH #### [facility] [address] [place] [address] Dr. Marla VarnerPLT195 103/zzSumdhf533-456Nfq [facility] HealthComment on above: Performed By: #### TSH #### [facility] [address] [place] [address] Dr. Marla VarnerRBC4.37 106/ulNormal4.20-5.40The [facility] Centerment on above:Performed By: #### TSH #### [facility] [address] [place] [address] Dr. Marla VarnerWBC7.7 103/ulNormal4.0-11.0The [facility] HealthComment on above: Performed By: #### TSH #### [facility] [address] [place] [address] Dr. Marla VarnerPROF 14(COMP METB)on 88-35-1669Uyfpttd [Mass/Vol]3.3 g/dL Critically low3.4-5.0The [facility] HealthComment on above:Performed By: #### URIC, CMP #### [facility] [address] [place] [address] Dr. Yilan ChangAlbumin/Globulin [Mass ratio]0.8 {ratio}NormalThe Premier HealthComment on above:Performed By: #### URIC, CMP #### [facility] [address] [place] [address] Dr. Marla Bynum [Catalytic activity/Vol]97 U/KVodyei06-777Hyg [facility] HealthComment on above:Performed By: #### URIC, CMP #### [facility] [address] [place] [address] Dr. Marla Altamirano [Catalytic activity/Vol]26 U/EScdrrj93-63Chm [facility] HealthComment on above:Performed By: #### URIC, CMP #### [facility] [address] [place] [address] Dr. Marla Rowell gap [Moles/Vol]18.0 mmol/LNormalThe [facility] Comment on above:Performed By: #### URIC, CMP #### [facility] [address] [place] [address] Dr. Marla Reyes [Catalytic activity/Vol]17 U/CSxswwo30-61Gqw [facility] Centerment on above:Performed By: #### URIC, CMP #### [facility] [address] [place] [address] Dr. Marla VarnerBilirubin [Mass/Vol]0.5 mg/dLNormal0.2-1.0[facility] Comment on above:Performed By: #### URIC, CMP #### [facility] [address] [place] [address] Dr. Marla VarnerCalcium [Mass/Vol]8.8 mg/dLNormal8.5-10.1[facility] Comment on above:Performed By: #### URIC, CMP #### [facility] [address] [place] [address] Dr. Marla VarnerChloride [Moles/Vol]100 mmol/XHuvnye46-985Sst [facility] Comment on above:Performed By: #### URIC, CMP #### [facility] [address] [place] [address] Dr. Marla VarnerCO2 [Moles/Vol]25.3 mmol/XEnpaay29.0-32.0[facility] Comment on above:Performed By: #### URIC, CMP #### [facility] [address] [place] [address] Dr. Marla VarnerCreatinine [Mass/Vol]0.95 mg/dLNormal0.55-1.02The [facility] HealthComment on above:Performed By: #### URIC, CMP #### [facility] [address] [address] [address] Marla SchultzGFR-AF ISRAELI>60Normal>=60The [facility] HealthComment on above:Performed By: #### URIC, CMP #### [facility] [address] [place] [address] Dr. Marla SchultzGFR-NON AF YPOKFOJK65 mL/min/1.43w1Mphpuazvwm low>=60The [facility] HealthComment on above:Performed By: #### URIC, CMP #### [facility] [address] [place] [address] Dr. Marla VarnerGlobulin (S) [Mass/Vol]3.9 g/dLNormalThe Premier HealthComment on above:Performed By: #### URIC, CMP #### [facility] [address] [place] [address] Dr. Marla VarnerGlucose [Mass/Vol]253 mg/dLCritically geqe17-737Unu [facility] HealthComment on above:Performed By: #### URIC, CMP #### [facility] [address] [place] [address] Dr. Marla VarnerPotassium [Moles/Vol]4.3 mmol/LNormal3.5-5.1[facility] Comment on above:Performed By: #### URIC, CMP #### [facility] [address] [place] [address] Dr. Marla VarnerProtein [Mass/Vol]7.2 g/dLNormal6.4-8.2[facility] Comment on above:Performed By: #### URIC, CMP #### [facility] [address] [place] [address] Dr. Marla Dowdium [Moles/Vol]139 mmol/MUxbexp197-296Qzi [facility] Comment on above:Performed By: #### URIC, CMP #### [facility] [address] [place] [address] Dr. Marla Vital nitrogen [Mass/Vol]13.0 mg/dLNormal7.0-18.0The [facility] HealthComment on above:Performed By: #### URIC, CMP #### [facility] [address] [place] [address] Dr. Marla Vital nitrogen/Creatinine [Mass ratio]13.6 mg/mgNormalThe [facility] HealthComment on above:Performed By: #### URIC, CMP #### [facility] [address] [place] [address] Dr. Marla Noel RATE WESTERGRENon 93-90-1801ZFA RATE35 mm/hrCritically high <=30The [facility] HealthComment on above:Performed By: #### TSH #### [facility] [address] [place] [address] Dr. Marla Leavitt ACID SERUMon 81-63-6207Ffumw [Mass/Vol]3.6 mg/dLNormal 2.6-6.0The [facility] HealthComment on above:Performed By: #### URIC, CMP #### [facility] [address] [place] [address] Dr. Marla VarnerXR DEXA BONE DENSITYon 75-74-1232AS DEXA BONE DENSITYEXAMINATION: XR DEXA BONE DENSITY, [...] Electronically authenticated by: KALEIGH SUTHERLAND Date: 2022-01-19 11:23[facility] HospitalCNOVSPon 54-25-8506ZYXVJEYglkd (SP) Office (GYNOSA) --------EUNICE CASTILLO ([id number]) 1950 FDate Time Provider Department10/21/18 10:40 AM [...] Kaminski to discuss resection of cauterizationRTC as neededBliane Thompson MD, MPH25 min spent with the patient with >50% face to face counselingA letter and a copy of this office note were sent to:[place] [address]?CC:Yimi Montemayor DO (PCP)Referring Provider: BLAINE THOMPSON [[id number]]Allergies As of Date: 10/21/2018 Noted Allergy ReactionPENICILLINS [...] (VIT B-12) 1,0* Inject 1,000 mcg intramuscula* [id number] MG CAPSULE Take 100 mg by mouth [...] More...Encounter Status:Closed by BLAINE THOMPSON MD on 10/23/18NoKettering Memorial Hospitalon 36-74-6940Jrcyktz mass conc HNO ID: [id number]: Blaine Maldonadoervice: (none)Author Type: PhysicianType: Progress NotesFiled: [...] office note were sent to:[place] [address]?CC:Yimi Montemayor DO (PCP)NormalAdena Health SystemCNOVon 19-92-7193NDUSDxmymk Visit (GYNOSA) --------EUNICE CASTILLO ([id number]) 1950 FDate Time Provider Department04/15/18 8:00 AM [...] I advised her to follow with her delivery professional f or routine health and gynmaintenance exams3. I will see her in 6 monthsBlaine Thompson MD, MPH25 min spent with the patient with >50% face to face counselingA letter and a copy of this office note were sent to:[place] [address]?CC:Yimi Montemayor DO (PCP)Referring Provider: BLAINE THOMPSON [[id number]]Allergies As of Date: 04/15/2018 Noted Allergy ReactionPENICILLINS [...] More... Status:Closed by BLAINE THOMPSON MD on 04/15/18[facility] 72-55-1091Nszoxpm mass concHNO ID: [id number]: Blaine Maldonadoervice: (none)Author Type: PhysicianType: Progress NotesFiled: [...] I advised her to follow with her delivery professional for routine health andgyn maintenance exams3. I will see her in 6 monthsBlaine Thompson MD, MPH25 min spent with the patient with >50% face to face counselingA letter and a copy of this office note were sent to:[place] [address]?CC:Yimi Montemayor DO (PCP)NormalAdena Health System Vital Signs Date TimeVital SignValuePerforming NfxvwfwzsFteihitz99-33-2969 10:59-0400Body mevcxi536.1 Donna LARA Work Phone: [facility]09-29-2025 10:59-0400 Body mass index (BMI) [Ratio]40.4 kg/m2Lisa Milton LARA Work Phone: [facility]09-29-2025 10:59-0400 Body sqkddciubwm51.7 [degF]Brunilda Aichholz DIRECTOR OF VENDOR MANAGEMENT-C Work Phone: [phone] [place], [place] 3358509-29-2025 10:59-0400 Body ylmrma883.27 kgLisa Aichholz DIRECTOR OF VENDOR MANAGEMENT-C Work Phone: [phone] [place], [place] 3358509-29-2025 10:59-0400 Diastolic blood mm[Hg]Brunilda Aichholz DIRECTOR OF VENDOR MANAGEMENT-C Work Phone: [phone]09-29-2025 10:59-0400 Heart rate63 /minLisa Aichholz DIRECTOR OF VENDOR MANAGEMENT-C Work Phone: [phone]09-29-2025 10:59-0400 Respiratory rate18 /minLisa Aichholz DIRECTOR OF VENDOR MANAGEMENT-C Work Phone: [phone] [place], [place] 3358509-29-2025 10:59-0400 SaO2% (BldA) [Mass fraction]97 %Brunilda Aichholz DIRECTOR OF VENDOR MANAGEMENT-C Work Phone: [phone] [place], [place] 3358509-29-2025 10:59-0400 Systolic blood wexjndqx557 mm[Hg]Brunilda Aichholz DIRECTOR OF VENDOR MANAGEMENT-C Work Phone: [phone] [place], [place] 3358503-05-2025 10:30-0500 Body apwkzi733.6 cmLisa Aichholz DIRECTOR OF VENDOR MANAGEMENT Work Phone: [facility] CenterAdzhyxjbgf10-39-4738 10:30-0500Body mass index (BMI) [Ratio]41.95 kg/m2Lisa Aichholz DIRECTOR OF VENDOR MANAGEMENT Work Phone: [facility] CenterMwnuyzejhd21-85-4377 10:30-0500Body temperature 98.29 [degF]Brunilda Aichholz DIRECTOR OF VENDOR MANAGEMENT Work Phone: [facility] CenterPhylczxavv47-14-7108 10:30-0500Body mwjhee730.86 kgLisa Aichholz DIRECTOR OF VENDOR MANAGEMENT Work Phone: [facility] CenterYsznzhrecy28-42-8694 10:30-0500Diastolic blood bgpwufxz14 mm[Hg]Brunilda Deonholz DIRECTOR OF VENDOR MANAGEMENT Work Phone: [facility] CenterOqwjzgigee80-38-6541 10:30-0500Heart rate74 /min Brunilda Deonholz DIRECTOR OF VENDOR MANAGEMENT Work Phone: [facility] CenterLscfgojzob71-76-3399 10:30-0500Respiratory rate22 /minLisa Deonholz DIRECTOR OF VENDOR MANAGEMENT Work Phone: [facility] CenterIrhksudawc07-96-1572 10:30-3924KvR8% (BldA) [Mass fraction]95 %Brunilda Deonholz DIRECTOR OF VENDOR MANAGEMENT Work Phone: [facility] CenterZblfymzjfj73-31-5015 10:30-0500Systolic blood uoayashn329 mm[Hg]Brunilda eDonholz DIRECTOR OF VENDOR MANAGEMENT Work Phone: [facility] CenterFpzambvrle90-68-0454 09:17-0400Body mass index (BMI) [Ratio]41.76 kg/m2Lianasa Deonholz DIRECTOR OF VENDOR MANAGEMENT Work Phone: [facility] CenterEpmyslsasf84-41-7922 09:17-0400Body temperature 97.3 [degF]Brunilda Deonholz DIRECTOR OF VENDOR MANAGEMENT Work Phone: [facility] CenterCbvuxbkujo60-12-3260 09:17-0400Body aitkgu356.36 kgLianasa Deonholz DIRECTOR OF VENDOR MANAGEMENT Work Phone: [facility] CenterBtwjptmqrf17-22-9820 09:17-0400Diastolic blood odlrxlmo39 mm[Hg]Brunilda Deonholz DIRECTOR OF VENDOR MANAGEMENT Work Phone: [address] [address]Jmcoxndrra76-21-0464 09:17-0400Heart rate79 /min Brunilda Ramseyhholz DIRECTOR OF VENDOR MANAGEMENT Work Phone: [address] [address]Lyfuufqizx53-69-4996 09:17-9025ChR9% (BldA) [Mass fraction]94 %Brunilda Ramseyhholz DIRECTOR OF VENDOR MANAGEMENT Work Phone: [address] [address]Stilmzvwle72-37-3936 09:17-0400Systolic blood woklgumc870 mm[Hg]Brunilda Milton DIRECTOR OF VENDOR MANAGEMENT Work Phone: [facility] Encounters Encounter DateEncounter TypeCare ProviderFacilityStart: 07-16-2025 End: 60-23-4817xnulfpkvleEsaq J Aichholz DIRECTOR OF VENDOR MANAGEMENT-C Work Phone: [facility] Work Phone: Start: 07-16-2025 End: 96-91-2278Emyzjxk encounter procedureBrunilda Rose DIRECTOR OF VENDOR MANAGEMENT-C-FPG [facility] [place] Work Phone: Start: 67-19-5162Pkebvtx encounter procedureBrunilda Rose DIRECTOR OF VENDOR MANAGEMENT-C Work Phone: [facility] Centertart: 01-23-2025 End: 21-86-9074Gennfvpih Result EncounterGeneric External Data ProviderNOMS External Department UnsolicitedStart: 01-23-2025 End: 85-85-0004Akbimwlnj Result EncounterGeneric External Data ProviderNOMS External Department UnsolicitedStart: 12-20-2024 End: 79-46-9384Mrzvva flowsMargot Rose DIRECTOR OF VENDOR MANAGEMENT Work Phone: [facility] CW FMStart: 12-20-2024 End: 55-35-7145Sgjlok flowsMargot Rose DIRECTOR OF VENDOR MANAGEMENT Work Phone: [facility] FMStart: 12-20-2024 End: 06-49-5898Bjxwlul encounter procedureLiana Milton DIRECTOR OF VENDOR MANAGEMENT Work Phone: [facility] FMComment on above:Encounter for subsequent annual [...] Cigarette nicotine dependence without complicationStart: 12-20-2024 End: 66-51-6118pligeqgvzxZUYT KINZAot AvailableStart: 10-16-2024 End: 25-43-3985Glnfszljp Result EncounterGeneric External Data ProviderNOMS External Department UnsolicitedStart: 10-16-2024 End: 96-88-8769Iwtdaqdfp Result EncounterGeneric External Data ProviderNOMS External Department UnsolicitedStart: 06-22-2024 End: 54-37-2478Iprrhmgsr Result EncounterLisa Chavarriating DIRECTOR OF VENDOR MANAGEMENT Work Phone: [facility] External Department UnsolicitedStart: 06-22-2024 End: 65-77-7785Xumagqkui Result EncounterLisa Chavarriafrankiez DIRECTOR OF VENDOR MANAGEMENT Work Phone: [facility] External Department UnsolicitedStart: 06-12-2024 End: 88-05-9203Xvvwqw flowsheetBrunilda Chavarriaholz DIRECTOR OF VENDOR MANAGEMENT Work Phone: [facility] CWM FMStart: 06-12-2024 End: 19-03-7822Akfmby flowsheetBrunilda Chavarriaholz DIRECTOR OF VENDOR MANAGEMENT Work Phone: [facility] CW FMStart: 06-12-2024 End: 75-09-1065Wtxiwo outpatient visit 25 minutesLisa Chavarriaholz DIRECTOR OF VENDOR MANAGEMENT Work Phone: noms CWM FMComment on above:Primary hypertension (CMS/HCC) (Primary Dx); Morbid (severe) obesity due to excess calories (CMS/HCC); Body mass index (BMI) 40.0-44.9, adult (CMS/HCC); Malignant neoplasm of vagina (CMS/HCC); Gastroesophageal reflux disease without esophagitis; Lower extremity edema; Hypothyroidism, unspecified type (CMS/HCC); Tobacco user; Hyperglycemia; Polyneuropathy; Rheumatoid arthritis with positive rheumatoid factor, involving unspecified site ([facility]); Other fatigueStart: 06-12-2024 End: 75-29-4616ginhalsugxCZZA JUAREZZNot AvailableStart: 38-51-0807Cmyvdpa encounter procedureLisa Rose DIRECTOR OF VENDOR MANAGEMENT Work Phone: [facility] HealthcareStart: 77-70-8562Jqbvliaqx encounter Zohra Levi [facility] - Medical OncologyStart: 01-12-2023 End: 57-67-2827fosoomtsrbTNV BRUNILDA AICHHOLZFacility:K9Fymtq: 10-13-2022 End: 17-49-8431wvewhgsyytMQY BRUNILDA RAMSEYHHOLZFacility:B3Fhzge: 07-21-2022 End: 27-08-1775pkgqqyhataQKQ BRUNILDA AICHHOLZFacility:E8Zgdiz: 04-21-2022 End: 84-63-3801hgjtoydjcyDM DOCTOR MISCFacility:K7Arhbb: 01-19-2022 End: 08-39-2501kzjpaqrrefXGZ BRUNILDA AICHHOLZFacility:C0Wkfja: 10-21-2018 End: 25-02-2290Moioelu encounter procedureHAIDER [facility] Start: 04-15-2018 End: 45-46-8762Uieahlk encounter procedureHAISt. [facility]'s [facility] Procedures DateProcedureProcedure DetailPerforming ClinicianStart: 61-13-6505QRO CBC WITH AUTO DIFFGeneric External Data ProviderStart: 32-59-9273ExodnhrnmzoFlmx Aichholz DIRECTOR OF VENDOR MANAGEMENT Work Phone: Start: 10-77-2955MSB CBC WITH AUTO DIFFGeneric External Data ProviderStart: 35-93-3589ILL HEMOGLOBIN V5TGuzd Milton DIRECTOR OF VENDOR MANAGEMENT Work Phone: Start: 37-09-7444EovhsedkzdqZcji Aichholz DIRECTOR OF VENDOR MANAGEMENT Work Phone: Plan of Treatment DateCare ActivityDetailAuthorStart: 03-05-2026Medicare Annual Wellness (AWV) Medicare Annual Wellness (AWV)[facility] HealthcareStart: 09-50-7989Oqbqvlrtu for malignant neoplasm of breastMammogramNOMS HealthcareStart: 33-12-2575Rhmvc screening for proteinDiabetes: Urine Protein ScreeningNOMS HealthcareComment on above:Postponed from 1969 (Other Medical Reasons)Start: 06-25-2025 End: 02-89-2712Zxuoffx encounter jvcffhyyq42/08/2025 9:20 AM EDT Office Visit [facility] [address] [place] [address] Brunilda Rose NP [address] [place] [address] [facility] FMStart: 71-16-4137Jdzbhhofi vaccinationInfluenza Vaccine (Season Ended)[facility] HealthcareStart: 06-71-6759Omdxpwlgg vaccination Influenza Vaccine (#1)[facility] HealthcareComment on above:Postponed from 06/18/2024 (Patient Refused)Start: 12-20-2024 End: 10-81-2648Ljjytcf encounter plondrjws08/05/2025 10:30 AM EST Office Visit [facility] [address] [place] [address] Brunilda Rose, RHEA [address] [place] [address] Polyneuropathy (Primary Dx); Morbid (severe) obesity due [...] edema; Age-related osteoporosis without current pathological fracture ([facility]/HCC); Hypothyroidism, unspecified type ([facility]/HCC); Encounter for subsequent annual wellness visit (AWV) in Medicare patient; Chronic gout without tophus, unspecified cause, unspecified site; Hyperglycemia; Cigarette nicotine dependence without complicationStart: 02-26-2025Medicare Annual Wellness (AWV)Medicare Annual Wellness (AWV)[facility] HealthcareStart: 58-21-9440Scxrnjosh for malignant neoplasm of colonColorectal Cancer Screening N[facility] HealthcareComment on above:Postponed from 1950 (Patient Refused) Start: 12-12-2024 End: 41-96-1817Eqftdzi encounter oqcssvzra76/25/2025 10:00 AM EST Office Visit [facility] [address] [place] [address] Brunilda Rose NP [address] [place] [address] [facility] FMStart: 66-94-2542Wluozpqa screeningDiabetes: Retinopathy ScreeningNOMS HealthcareComment on above:Postponed from 1960 (Other Medical Reasons)Start: 73-81-2053Rcycq screening for proteinDiabetes: Urine Protein ScreeningNOMS HealthcareComment on above:Postponed from 1969 (Other Patient Reasons)Start: 13-99-1046Vrwvwwyrt vaccinationInfluenza Vaccine (#1)[facility] HealthcareStart: 73-05-8127Siohgomre for malignant neoplasm of breast MammogramNOMS HealthcareStart: 06-12-2024 End: 97-57-9476Tikbloa encounter uhjoqscja48/26/2024 9:20 AM EDT Office Visit [facility] [address] [place] [address] Brunilda Rose NP [address] [place] [address] Morbid (severe) obesity due to excess calories (CMS/HCC); Body mass index (BMI) 40.0-44.9, adult (CMS/HCC); Malignant neoplasm of vagina (CMS/HCC)[facility] C[facility] FMComment on above:Morbid (severe) obesity due to excess calories (CMS/HCC); Body mass index (BMI) 40.0-44.9, adult (CMS/HCC); Malignant neoplasm of vagina (CMS/HCC)Start: 16-38-3305Gkmek BMI ScreeningAdult BMI ScreeningProParma Community General Hospitaltart: 30-44-4367XXBYI-19 Vaccine ( season)COVID-19 Vaccine ( season)[facility]ertart: 98-75-3605Egmzxuulv vaccinationInfluenza VaccineUniversity Hospitals TriPoint [facility] SystemStart: 99-54-1204Ozfa Risk ScreeningFall Risk ScreeningAngel Medical Centertart: 81-15-6827Vchlfuqfiykksn of varicella zoster vaccineZoster (Shingles) Vaccine (1 of 2)[facility] Centertart: 25-26-3769WRfY,Tdap and Td Vaccines (1 - Tdap)DTaP,Tdap and Td Vaccines (1 - Tdap)[facility] SystemStart: 70-85-2580Coihh screening for proteinDiabetes: Urine Protein ScreeningVA HOSPITAL HealthcareStart: 79-90-0117Xnhbz BMI Follow Up PlanAdult BMI Follow Up Plan [facility]ertart: 92-39-1676Qxcryfyzwn ScreeningDepression Screening [facility] Centertart: 08-75-5525Xylsuqv ScreeningTobacco Screening [facility]ertart: 25-37-5236Nzairfnc screeningDiabetes: Retinopathy ScreeningVA HOSPITAL HealthcareStart: 75-32-0237Whwinxyacl A1c measurementDiabetes: Hemoglobin T4AMJXYJohn J. Pershing VA Medical CenterStart: 1950Medicare Annual Wellness Visit Medicare Annual Wellness VisitAngel Medical Centertart: 01-08-0114Pubrahbyp for malignant neoplasm of colonVA HOSPITAL Healthcare Immunizations Immunization DateImmunizationNotesCare UotsayqfZvevfvfm38-91-7567Yjjngssnr, Seasonal, Quadrivalent, AdjuvantedLisa Aichholz DIRECTOR OF VENDOR MANAGEMENT Work Phone: [facility] CenterJothcbqkhw23-82-1679KBXF-NNF-9 (COVID-19) vaccine, mRNA, spike protein, LNP, PF, india-sucrose, 30 mcg/0.3 mLLisa Aichholz DIRECTOR OF VENDOR MANAGEMENT Work Phone: [phone] [place], [place] [address]Tywxytslzo14-74-7546xekhobaeu virus vaccine, unspecified formulationLisa Aichholz DIRECTOR OF VENDOR MANAGEMENT Work Phone: [phone] [place], [place] [address]Kszjskugek29-54-5400Mofwwgpiz, Seasonal, Quadrivalent, AdjuvantedLisa Aichholz DIRECTOR OF VENDOR MANAGEMENT Work Phone: [phone] [place], [place] [address]Vjdjvmhtcz31-53-4981SLXI-YCG-5 (COVID-19) vaccine, mRNA, spike protein, LNP, bivalent, preservative free, 30 mcg/0.3 mL dose, india-sucrose formulationLisa Aichholz DIRECTOR OF VENDOR MANAGEMENT Work Phone: [phone] [place], [place] [address]Zothzqbfly19-23-1849ovfuekmyx virus vaccine, unspecified formulationPaula [facility] Hospital11-24-2021Pfizer Purple Cap SARS-CoV-2 VaccinationLisa Aichholz DIRECTOR OF VENDOR MANAGEMENT Work Phone: [phone] [place], [place] [address]Glasjffmne73-86-5953iifaftzppdka polysaccharide vaccine, 23 valentLisa Aichholz DIRECTOR OF VENDOR MANAGEMENT Work Phone: [phone] [place], [place] [address]Mxbkddinor69-21-0498Nqczbiprz, Seasonal, Quadrivalent, AdjuvantedLisa Aichholz DIRECTOR OF VENDOR MANAGEMENT Work Phone: [phone] [place], [place] [address]Ywpxffipra11-14-6603Yplnej Purple Cap SARS-CoV-2 VaccinationLisa Aichholz DIRECTOR OF VENDOR MANAGEMENT Work Phone: [phone] [place], [place] [address]Pmhbckxnsa77-34-4888Wzxuzq Purple Cap SARS-CoV-2 VaccinationLisa Aichholz DIRECTOR OF VENDOR MANAGEMENT Work Phone: noSaint Luke's North Hospital–Barry RoadIfvrfqpynn16-57-8967Gynwwdysp, Seasonal, Quadrivalent, AdjuvantedLisa Deonholz DIRECTOR OF VENDOR MANAGEMENT Work Phone: noSaint Luke's North Hospital–Barry RoadRobmiztlqu18-40-4143csojpganfdxe conjugate vaccine, 13 valentLisa Deonholz DIRECTOR OF VENDOR MANAGEMENT Work Phone: [facility] Payers DatePayer CategoryPayerPolicy [id number] Health InsuranceMEDICAL MUTUAL Member Subscriber Plan / Payer (Effective 2021-Present) Name: Eunice Castillo Rick Relation to Subscriber: Self Name: Eunice Castillo Rick ID: Not on file Type: Not on file Address: [place] [id number] 2015Medicare [id number] [id number] 1960 [id number] [id number] 2.16.840.1.269669.3.57[id number] 2.16.840.1.403767.3.57[id number] 2.0.1.776797.3.57[id number] 2.16.840.1.929467.3.57[id number] 2..840.1.044243.3.57[id number] 2..840.1.644997.3.57[id number] 2.0.1.462907.3.57[id number] 2..840.1.674208.3.579.2.1259Private Health InsuranceSt. Joseph [id number] Social History DateTypeDetailFacilityStart: 10-31-2019 End: 35-75-1351Utgmhip smoking status NHISSmokes tobacco dailyFlower HospitalHistory of tobacco useCigarette SmokerUniversity Hospitals TriPoint [facility] SystemStart: 10-31-2019 End: 65-79-1079Ymecbvkiap smoked current (pack per day) - Dzqigmib4NOKF HealthcareStart: 97-00-9590Neaoxnt use and exposureSmokeless tobacco non-user [facility] SystemStart: 11-13-2020 End: 93-44-9680Fsztaly intakeLifetime non-drinker (finding)[facility] SystemStart: 08-16-2019 End: 49-24-2633Ssvpize Use Disorder Identification Test - Consumption [AUDIT-C] [facility] HealthcareFrequency of Alcohol ConsumptionNeParkview Health [facility] System Start: 88-88-3339Joz Assigned At BirthNot on fileFlower HospitalWithin the last year, have you been afraid of your partner or ex-partner?NoNOMS HealthcareDo you belong to any clubs or organizations such as restoration groups, unions, fraternal or athletic groups, or [...] got money to buy more.Never trueNOMS HealthcareStart: 12-58-9620Qzulqto Commentcaffine: 4 cups dailyNOMS HealthcareSexFemale (finding) [facility] Centertart: 68-95-9569Edd Assigned At [facility] History of Present illness Narrative 12-20-2024 Note Date & NkrjPtejCnzpwuri59-00-4319 History of Present illness Narrative* IBIS RAYA [...] Any Hospitalizations in the last year:none Specialist:Rheumatology, ACQUISITION EDITOR HCPOA/Living Will:yes Concerns: Thyroid Problem Presents for [...] compliance problems. There is no history of CAD/CO, heart failure or PVD. Identifiable causesof hypertension [...] 12/13/2023 Heel spur, left 12/13/2023 HTN (hypertension) ([facility]) 12/13/2023 Hyperglycemia 12/13/2023 Hypothyroid ([facility]) 12/13/2023 Lower extremity edema 12/13/2023 Morbid obesity with body mass index (BMI) of 40.0 to 49.9 ([facility]) 12/13/2023 Non-compliant patient 12/13/2023 Osteoarthritis 12/13/2023 Osteoporosis ([facility]) 12/13/2023 Polyneuropathy 12/13/2023 RA (rheumatoid arthritis) ([facility]) 12/13/2023 Tobacco user 12/13/2023 Vaginal cancer ([facility]) 12/13/2023 Vitamin B12 deficiency 12/13/2023 [...] Visit Body mass index (BMI) 40.0-44.9, adult ([facility]) Chronic idiopathic gout of multiple [...] gabapentin (Neurontin) 300 MG capsule HTN (hypertension) ([facility]) Please check blood pressure daily and record DASH diet Limit caffeine Take medication as directed Contact office if chest pain, pressure, dizziness, shortness of breath, swelling legs Recommend slow position changes Current meds: lisinopril, and lasix Relevant Medications lisinopril 10 MG tablet Malignant neoplasm of vagina ([facility]) Osteoporosis ([facility]) DEXA was 05/10, -3.0, Current med fosamax Lower extremity edema Lasix Limit sodium, elevate feet as much as possible Check labs yearly and prn Relevant Medications furosemide (Lasix) 40 MG tablet potassium chloride CR (Klor-Con) 10 MEQ ER tablet Morbid (severe) obesity due to excess calories ([facility]) Discussed with patient their BMI (actual, verses recommended). We have also discussed lifestyle modifications: attempts to perform physical activity as chronic conditions allow, also to monitor dietary intake: increasing protein/fruits/veggies and lowering carb intake (unless contraindicated). Limit sodas, juices, and sugary drinks. Hypothyroid ([facility]) Current med on levothyroxine Check labs yearly, prn dose changes, changes in symptoms Relevant Medications levothyroxine (Synthroid, Levoxyl) 150 MCG tablet Rheumatoid arthritis with rheumatoid factor, unspecified ([facility]) Continue with dr cardenas Current [...] of the risks of continued smoking: stroke, CO, all forms of cancer, lung disease, and [...] of the risks of continued smoking: stroke, CO, all forms of cancer, lung disease, and [...] Problem(s): Rheumatoid arthritis with rheumatoid factor, unspecified ([facility]) Continue with dr cardenas Current [...] intraepithelial neoplasia III) 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 w ACQUISITION EDITOR/onc * Brunilda Rose NP - 12/20/2024 6:45 [...] as well OARRS reviewed documented in this encounterNOWY Healthcare History of Present illness Narrative 06-12-2024 Note Date & NmqtIfsuAqmumlro29-29-2722 History of Present illness Narrative* Brunilda Rose [...] 06/12/2024 11:21 AM EDTAssociated Problem(s): HTN (hypertension) ([facility]) Stable at this time No [...] mass index (BMI) of 40.0 to 49.9 ([facility]) 12/13/2023 Non-compliant patient 12/13/2023 Osteoarthritis 12/13/2023 Osteoporosis ([facility]) 12/13/2023 Polyneuropathy 12/13/2023 RA (rheumatoid arthritis) ([facility] [...] Visit Body mass index (BMI) 40.0-44.9, adult ([facility]) Gastroesophageal reflux disease without esophagitis Polyneuropathy Would like to increase gabapentin to 300mg BID Relevant Medications gabapentin (Neurontin) 300 MG capsule HTN (hypertension) ([facility]/H[facility]) - Primary Stable at this time No med dose change Relevant Medications lisinopril 10 MG tablet Malignant neoplasm of vagina (CMS/HCC) Continue with Pyrometer Temperature Regulator/Onc Lower extremity edema Relevant Medications potassium chloride CR (Klor-Con) 10 MEQ ER tablet furosemide (Lasix) 40 MG tablet Morbid (severe) obesity due to excess calories (CMS/HCC) Hypothyroid (CMS/HCC) Fatigue, takes thyroid meds daily as directed Relevant Medications levothyroxine (Synthroid, Levoxyl) 150 MCG tablet Tobacco user RA (rheumatoid arthritis) ([facility]/H[facility]) Relevant Medications folic acid (Folvite) 1 [...] Malignant neoplasm of vagina (CMS/HCC) Continue with Pyrometer Temperature Regulator/Onc documented in this encounterVA HOSPITAL Healthcare Note 10-13-2023 Note Date & YkuuHyyeDghiqvgv37-31-9587 Miscellaneous Notes* Telephone Encounter - Zohra Oates - 10/13/2023 2:33 PM EST CALLED TO CANCEL FOLLOW UP WITH ANTONIETTA SHE DOES NOT WANT TO RESCHEDULE AT THIS TIME documented in this encounterUniversity Hospitals TriPoint [facility] System Telephone encounter Note 10-13-2023 Note Date & SwwlYljxFiwpqnvz51-11-9264 Telephone encounter Note* Telephone Encounter - Zohra Oates - 10/13/2023 2:33 PM EST CALLED TO CANCEL FOLLOW UP WITH ANTONIETTA SHE DOES NOT WANT TO RESCHEDULE AT THIS TIME [facility] Evaluation note Note Date [...] (CMS/HCC) Other fatigue [facility] encounter [facility] Note Date & [...] with positive rheumatoid factor, involving unspecified site ([facility]) Allergic rhinitis, unspecified seasonality, unspecified trigger Gastroesophageal reflux disease without esophagitis Esophageal reflux Primary hypertension ([facility])- Primary Unspecified essential hypertension Morbid (severe) obesity due to excess calories ([facility]) Body mass index (BMI) 40.0-44.9, adult ([facility]) Malignant neoplasm of vagina ([facility]/HCC) Malignant neoplasm of vagina Gastroesophageal reflux disease without esophagitis Esophageal reflux Lower extremity edema Edema Hypothyroidism, unspecified type ([facility]) Tobacco user Tobacco use disorder Hyperglycemia Other abnormal glucose Polyneuropathy Unspecified hereditary and idiopathic peripheral neuropathy Rheumatoid arthritis with positive rheumatoid factor, involving unspecified site ([facility]) Other fatigue Encounter for subsequent annual wellness visit (AWV) in Medicare patient- Primary Morbid (severe) obesity due to excess calories ([facility]) Body mass index (BMI) 40.0-44.9, adult ([facility]) Rheumatoid arthritis with rheumatoid factor, unspecified ([facility]) Malignant neoplasm of vagina ([facility]) Malignant neoplasm of vagina Polyneuropathy Unspecified hereditary and idiopathic peripheral neuropathy Primary hypertension ([facility]) Unspecified essential hypertension Gastroesophageal reflux disease without esophagitis Esophageal reflux Idiopathic chronic gout of multiple sites without tophus Lower extremity edema Edema Age-related osteoporosis without current pathological fracture ([facility]) Hypothyroidism, unspecified type ([facility]) Chronic gout without tophus, unspecified [...] arthritis with rheumatoid factor, unspecifiedacuteSeptember 2024 10:25am [facility] Work Phone: Instructions Note Date & TypeNoteFacilityInstructionsNot on filedocumented in this encounter [facility] Reason for referral (narrative) Note Date & TypeNoteFacilityReason for referral (narrative)No reason for referral information availableUpper Valley Medical Center Work Phone: Summary Purpose Family History No [...] section and content) DATE CREATED AUTHOR 10/27/2018 [facility] DATE CREATED AUTHOR AUTHOR'S ORGANIZ ATION 01/15/2023 [facility] DATE CREATED AUTHOR AUTHOR'S ORGANIZ ATION 12/22/2024 [facility] EPIC Care Teams (unrecognized sec tion and content) Team MemberRelationshipSpecialtyStart DateEnd Date Brunilda Rose, CARGO CHECKER-CONTINUITY PERSON [address] [place] [phone] PCP - GeneralNurse Pjuasydxwsgo83/30/19Team MemberRelationshipSpecialtyStart DateEnd Date Jerry Shah MD [address] [place] [phone] PCP - GeneralFamily Medicine12/06/23 Brunilda Rose NP [address] [place] [address] Nurse PractitionerP[facility]10/18/22Team MemberRelationshipSpecialtyStart DateEnd Date Jerry Shah MD [address] [place] [address] PCP - [facility]12/06/23 Brunilda Rose NP [address] [place] [address] Nurse [facility]10/18/22Te MemberRelationshipSpecialtyStart DateEnd Date Jerry Shah MD [address] [place] [address] PCP - [facility]12/06/23 Brunilda Rose NP [address] [place] [address] Nurse [facility]10/18/22Te MemberRelationshipSpecialtyStart DateEnd Date Jerry Shah MD [address] [place] [address] PCP - [facility]12/06/23 Brunilda Rose NP [address] [place] [address] Nurse [facility]10/18/22Team MemberRelationshipSpecialtyStart DateEnd Date Jerry Shah MD [address] [place] [phone] PCP - [facility]12/06/23 Brunilda Rose NP [address] [place] [phone] Nurse PractitionerP[facility]10/18/22Team MemberRelationshipSpecialtyStart DateEnd Date Jerry Shah MD [address] [place] [address] PCP - [facility]12/06/23 Brunilda Rose NP [address] [place] [address] Nurse PractitionerPhoebe [facility]10/18/22 Team Status: Active Member Role Status Dates [...] BE BASED ON THE PRIMARY CLINICAL RECORDS. [employer] [facility]. provides no warranty or guarantee of the accuracy or completeness of information in this document.
--- OUTSIDE RECORDS SUMMARY | 2025-08-15 07:12 | XMS_ITS | CCD ---
Author Organization [facility] CliniSyct Care Team Providers Care Lard Maker Name Role Phone MAHDI, BLAINE Unavailable Unavailable MAHDI, BLAINE Unavailable Unavailable MAHDI, BLAINE Unavailable Unavailable MAHDI, BLAINE Unavailable Unavailable AICHHOLZ, CAPTAIN WAITER BRUNILDA Primary Care Unavailable MISC, DOCTOR Attending Unavailable MISC, DR SMITH Consulting Unavailable MISC, DR SMITH Admitting Unavailable AICHHOLZ, CAPTAIN WAITER BRUNILDA Consulting Unavailable AICHHOLZ, CAPTAIN WAITER BRUNILDA Admitting Unavailable AICHHOLZ, CAPTAIN WAITER BRUNILDA Primary Care Unavailable AICHHOLZ, CAPTAIN WAITER BRUNILDA Attending Unavailable MISC, DR SMITH Admitting Unavailable AICHHOLZ, CAPTAIN WAITER BRUNILDA Primary Care Unavailable MISC, DR SMITH Attending Unavailable MISC, DR SMITH Consulting Unavailable AICHHOLZ, CAPTAIN WAITER BRUNILDA Attending Unavailable AICHHOLZ, CAPTAIN WAITER BRUNILDA Consulting Unavailable AICHHOLZ, CAPTAIN WAITER BRUNILDA Primary Care Unavailable AICHHOLZ, CAPTAIN WAITER BRUNILDA Admitting Unavailable AICHHOLZ, CAPTAIN WAITER BRUNILDA Primary Care Unavailable MISC, DR SMITH Attending Unavailable MISC, DR SMITH Consulting Unavailable AICHHOLZ, CAPTAIN WAITER BRUNILDA Admitting Unavailable AICHHOLZ, CAPTAIN WAITER BRUNILDA Primary Care Unavailable THERESA, DR KAPOOR Admitting Unavailable KOKO, DR KALEIGH Jameson Consulting Unavailable CARDENAS, DR KAPOOR Attending Unavailable CARDENAS, DR KAPOOR Consulting Unavailable MISC, DR SMITH Attending Unavailable AICHHOLZ, CAPTAIN WAITER BRUNILDA Primary Care Unavailable MISC, DR SMITH Consulting Unavailable MISC, DR SMITH Admitting Unavailable Aichholz LOCK MASTER-GENI, Brunilda Altagracia Primary Care Provider Aichholz GOVERNMENT AFFAIRS DIRECTOR, Brunilda Unavailable Jerry Shah MD Primary Care Provider AICHHOLZ, BRUNILDA Attending Unavailable AICHHOLZ, BRUNILDA Attending Unavailable Aichholz GOVERNMENT AFFAIRS DIRECTOR-C, Brunilda J Primary Care Provider Milton LARA, Brunilda Frias Attending Provider Allergies Allergy ClassificationReported Allergen(s)Allergy TypeDate of OnsetReaction(s) Facility (12 sources)Penicillins; Translations: [PENICILLINS]Propensity to adverse reactions to drug (disorder)[id number], UnknownAsht[facility] (11 sources)PiroxicamDrug Tvsznlq10-52-4619QylbhfxuIehElhtya Health System Medications Current Medications MedicationDrug Class(es)DatesSig (Normalized)Sig (Original)acetaminophen 325 mg oral tablet (1 source)Start: 67-54-1426ivig 2 tablets by mouth every six hours as needed acetaminophen (TYLENOL) 325 mg tablet Take 650 mg by mouth every 6 (six) hours as needed. 0 10/30/2016 Active0.8 ml adalimumab 50 mg/ml prefilled syringe (11 sources)Tumor Necrosis Factor BlockerStart: 48-47-2071Nebxqbimtm (Humira) 40 mg/0.8 mL syringe kit Active [...] acid 70 mg oral tablet (5 sources)BisphosphonateStart: 48-80-3742yucj 1 tablet by mouth every week Alendronate (Fosamax) 70 mg tablet Active 70 MG PO every week July 13, 2025 12:00am Complieswith drug therapyStart: 37-56-2155xyiwztfphhr (Fosamax) 70 MG tablet Take 70 mg by mouth every 7 (seven) days 11/28/2024 Activeallopurinol 300 mg oral tablet (11 sources)Xanthine Oxidase InhibitorStart: 35-37-1638roli 1 tablet by mouth once dailyAllopurinol 300 mg tablet Active 300 MG PO Daily July 13, 2025 12:00am Complies with drug therapyStart: 16-88-4025njcj 1 tablet by mouth in the morningallopurinol (Zyloprim) 300 MG tablet Take 1 tablet by mouth in the morning. 09/30/2023 Activecalcium citrate/vitamin D3 (CITRACAL REGULAR ORAL) (1 source)take 2 tablets by mouth once dailycalcium citrate/vitamin D3 (CITRACAL REGULAR ORAL) Take 2 tablets by mouth daily. 0 Activecalcium polycarbophil 625 mg oral tablet (11 sources)Start: 55-92-7238Jorywao Polycarbophil 625 mg tablet Active 1250 MG PO Daily July 13, 2025 12:00am Complies with drug therapytake 1 tablet by mouth in the morningCalcium Polycarbophil (fiber) 625 MG tablet Take 625 mg by mouth in the morning. Activecetirizine hydrochloride 10 mg oral tablet (11 sources)Histamine-1 Receptor AntagonistStart: 81-79-4673idjc 1 tablet by mouth once daily as [...] Activecolchicine 0.6 mg oral tablet (13 sources)Start: 92-48-6782oexe 1 tablet by mouth once daily as needed Colchicine 0.6 mg tablet Active 0.6 MG PO Daily as needed for gout July 13, 2025 12:00am Complies with drug therapyStart: 87-69-3742ounajyzboh 0.6 MG tablet Take 0.6 mg by mouth As directed 05/25/2024 ActiveStart: 09-30-2023 End: 50-77-3994ygcq 1 capsule by mouth in the morningMitigare 0.6 MG capsule Take 1 capsule by mouth in the morning. 09/30/2023 06/12/2024 Discontinued ( Therapy completed)Start: 25-20-9728nqis 1 tablet by mouth once dailycolchicine (COLCRYS) 0.6 mg tablet Take 0.6 mg by mouth daily. 0 03/30/2017 Activedocusate sodium 100 mg oral capsule (1 source)Start: 82-24-7627shtv 1 capsule by mouth every twelve hours as needed docusate sodium (COLACE) 100 mg capsule Take 100 mg by mouth every 12 (twelve) hours as needed. 0 10/30/2016 Activefolic acid 1 mg oral tablet (14 sources)Start: 84-79-9370xhnc 1 tablet by mouth once dailyFolic Acid 1 mg tablet Active 1 MG PO Daily July 16, 2025 12:00am Complies with drug therapyStart: 11-28-2024 End: 62-43-2004fcka 1 tablet by mouth once dailyfolic acid (Folvite) 1 MG tablet Indications: Rheumatoid arthritis with rheumatoid factor, unspecified (CMS/HCC) Take 1 tablet (1 mg) by mouth Daily 90 tablet 3 12/20/2024 03/20/2025 Active Start: 09-30-2023 End: 40-14-2074wiwh 1 tablet by mouth once daily in the morningfolic acid (Folvite) 1 MG tablet Indications: Rheumatoid arthritis with positive rheumatoid factor,involving unspecified site (CMS/HCC) Take 1 tablet (1,000 mcg) by mouth Daily Take 1 tablet by mouth in the morning. 90 tablet 3 06/12/2024 09/10/2024 Activefurosemide 40 mg oral tablet (15 sources)Loop DiureticStart: 11-87-4761kbkh 1 tablet by mouth once daily Furosemide (Lasix) 40 mg tablet Active 40 MG PO Daily July 13, 2025 12:00am Complies with drug therapyStart: 12-13-2023 End: 27-85-5022zkod 1 tablet by mouth once dailyfurosemide (Lasix) 40 MG tablet Indications: Lower extremity edema Take 1 tablet (40 mg) by mouth Daily 90 tablet 3 12/20/2024 03/20/2025 ActiveStart: 58-62-9629apeb 1 tablet by mouth once dailyfurosemide (LASIX) 40 mg tablet Take 40 mg by mouth daily. 0 06/13/2016 Activegabapentin 300 mg oral capsule (19 sources)Anti-epileptic AgentStart: 21-72-3888hugc 1 capsule by mouth twice dailyGabapentin 300 mg capsule Active 300 MG PO Twice daily July 13, 2025 12:00am Complies with drug therapyStart: 12-13-2023 End: 75-68-5262zgiq 1 capsule by mouth in the morninggabapentin (Neurontin) 300 MG capsule Indications: Polyneuropathy Take 1 capsule (300 mg) by mouth in the morning and 1 capsule (300 mg) before bedtime. 180 capsule 3 12/20/2024 03/20/2025 ActiveStart: 12-13-2023 End: 49-33-3576depw 1 capsule by mouth in the morninggabapentin (Neurontin) 100 MG capsule Indications: Polyneuropathy Take 1 capsule (100 mg) by mouth in the morning. 90 capsule 3 12/13/2023 06/12/2024 Discontinued (Ineffective)Start: 11-36-0322dyvs 1 capsule by mouth once dailygabapentin (NEURONTIN) 300 mg capsule Take 300 mg by mouth nightly. 0 06/08/2016 Activegabapentin (NEURONTIN) 100 mg capsule Take 100 mg by mouth daily. !00 mg in AM, and 300 MG in PM 0 A ctivelevothyroxine sodium 0.15 mg oral tablet (15 sources)l-ThyroxineStart: 17-92-0527kwex 1 tablet by mouth once daily Levothyroxine 150 mcg tablet Active 150 MCG PO Daily July 13, 2025 12:00am Complies with drug therapyStart: 12-13-2023 End: 18-63-6983gzrp 1 tablet by mouth before mealtimelevothyroxine (Synthroid, Levoxyl) 150 MCG tablet Indications: Hypothyroidism, unspecified type (CMS/HCC) Take 1 tablet (150 mcg) by mouth in the morning. Take before meals. 90 tablet 3 12/20/2024 03/20/2025 ActiveStart: 17-01-4380ereu 1 tablet by mouth once daily levothyroxine (SYNTHROID, LEVOTHROID) 175 MCG tablet Take 175 mcg by mouth daily. 0 08/04/2019 Activelisinopril 10 mg oral tablet (15 sources)Angiotensin Converting Enzyme InhibitorStart: 38-85-1894yqpx 1 tablet by mouth once dailyLisinopril 10 mg tablet Active 10 MG PO Daily July 13, 2025 12:00am Complies with drug therapyStart: 12-13-2023 End: 40-17-7207xtrj 1 tablet by mouth once dailylisinopril 10 [...] hydroxide 80 mg/ml oral suspension (1 source)Start: 33-72-6034jdufbazlo hydroxide (MILK OF MAGNESIA) 400 mg/5 mL suspension Take 15 mL by mouth. 0 10/30/2016 Activemethotrexate 2.5 mg oral tablet (11 sources)Folate Analog Metabolic InhibitorStart: 92-45-6199iemr 1 tablet by mouth every weekMethotrexate Sodium [...] mouth daily. 0 ActiveMultivitamin tablet (1 source)Start: 06-14-7074glpe 1 tablet by mouth once dailyMultivitamin tablet Active 1 TAB PO Daily July 13, 2025 12:00am Complies with drug therapy omeprazole 20 mg delayed release oral capsule (13 sources)Proton Pump InhibitorStart: 15-03-1283xpch 1 capsule by mouth once dailyOmeprazole 20 mg capsule,delayed release(DR/EC) Active 20 MG PO Daily July 13, 2025 12:00am Complies with drug therapyStart: 12-13-2023 End: 95-36-0291jpmq 1 capsule by mouth before mealtimeomeprazole (PriLOSEC) [address] capsule Indications: Gastroesophageal reflux disease without esophagitis Take 1 capsule (20 mg) by mouth in the morning. Take before meals. 90 capsule 3 12/20/2024 03/20/2025 Activetake 1 capsule by mouth once dailyomeprazole (PriLOSEC) 20 mg capsule Take 20 mg by mouth daily. 0 Activepotassium chloride 10 meq extended release oral tablet (15 sources)Start: 55-16-4836nbct 2 tablets by mouth twice dailyPotassium Chloride 10 mEq tablet extended release Active 20 MEQ PO Twice daily July 132:00am Complies with drug therapyStart: 68-75-2160bsbauyxik chloride CR (Klor-Con) 10 MEQ ER tablet Indications: Lower extremity edema 2 pills twice a day 360 tablet 3 12/20/2024 ActiveStart: 12-13-2023 End: 01-98-9434uwijjfzri chloride CR (Klor-Con) 10 MEQ ER tablet Indications: Lower extremity edema 2 pills twice a day2 pills twice a day 360 tablet 3 06/12/2024 12/20/2024 Discontinued (Reorder)Start: 88-28-9729jwdmknwwr chloride (K-DUR,KLOR-CON) 10 MEQ CR tablet Take 10 mEq by mouth daily. 0 03/30/2017 ActivepredniSONE 5 mg oral tablet (11 sources)Start: 53-86-1350ynwk 7.5 mg by mouth once dailyPrednisone 5 mg tablet Active 7.5 MG PO Daily July 13, 2025 12:00am Complies with drug therapyStart: 64-97-8095lrre 1.5 tablets by mouth in the morningpredniSONE (Deltasone) 5 MG tablet Take 1.5 tablets by mouth in the morning. 09/30/2023 Activetake 1 tablet by mouth once dailypredniSONE (DELTASONE) 5 mg tablet Take 5 mg by mouth daily. 0 Activevitamin b12 1 mg/ml injectable solution (1 source)Vitamin A03styrywvbxperat (VITAMIN B-12) 1,000 mcg/mL injection Inject 1,000 mcg into the appropriate muscle every 30 (thirty) days. 0 Active Problems Active Problems Problem ClassificationProblemDateDocumented DateEpisodic/ChronicAbdominal pain (10 sources)Generalized abdominal pain; Translations: [Generalized abdominal pain]Onset: 006348-53-9230YlxymekqWnydcj of other female genital organs (20 sources)Vulval intraepithelial neoplasia grade 3; Translations: [Carcinoma in situ of vulva]Onset: 025605-86-8447UhhiwmhZetyoqpv mellitus without complication (14 sources)Hyperglycemia; Translations: [Hyperglycemia, unspecified]Onset: 430200-74-9926FvrewthpAqjwciadav disorders (15 sources)Gastroesophageal reflux disease without esophagitis; Translations: [Gastro-esophageal reflux disease without esophagitis]Onset: 10-06-2016 66-57-9611UgdthfoQzqxtefiw hypertension (15 sources)Hypertensive disorder; Translations: [Essential (primary) hypertension]Onset: 176075-94-2930WykdiemShvm and other crystal arthropathies (20 sources)Idiopathic gout, multiple sites; Translations: [Chronic primary gouty arthritis]Onset: 952886-57-9107JigziugPpqatca and fatigue (12 sources)Fatigue; Translations: [Other fatigue]Onset: EpisodicNutritional deficiencies (10 sources)Cobalamin deficiency; Translations: [Deficiency of other specified B group vitamins]Onset: 898611-87-7800RelfymcvTtwsylqpaxuzfy (11 sources)Primary generalized (osteo)arthritis; Translations: [Osteoarthritis] Onset: 729146-34-2257SfvdjdkKhqjoxuqmlii (16 sources)Age-related osteoporosis without current pathological fracture; Translations: [Osteoporosis]Onset: 63-56-2772LwifsjiLuuvr aftercare (1 source)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 strategic 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; Translations: [OTH DIRECTOR OF PRODUCT MANAGEMENT CURRENT DRUG THERAPY]Onset: 78-65-3534JughwpvmFdwxz connective tissue disease (10 sources)H/O: osteoarthritis; Translations: [Personal history of other diseases of the musculoskeletal system and connective tissue]Onset: 12-13-2023 95-57-6031DpwsshkzCcgpp connective tissue disease (1 source)Calcaneal spur; Translations: [Calcaneal spur, unspecified foot] 39-99-6077WezslnwbMxvuf nervous system disorders (14 sources)Polyneuropathy; Translations: [Polyneuropathy, unspecified]Onset: 918584-95-1266KnimtgtMhhkp non-traumatic joint disorders (10 sources)Pain in left shoulder; Translations: [Pain in joint, shoulder region]Onset: 150553-31-3596PlbrhjolZjlgl nutritional; endocrine; and metabolic disorders (15 sources)Body mass index 40+ - severely obese; Translations: [Body mass index (BMI) 45.0-49.9, adult]Onset: 169079-61-9530EiodiekJgbtk nutritional; endocrine; and metabolic disorders (15 sources)Obesity caused by energy imbalance; Translations: [Morbid (severe) obesity due to excess calories]Onset: 708038-67-3177NcfroznUroeb upper respiratory disease (10 sources)Allergic rhinitis; Translations: [Allergic rhinitis, unspecified] Onset: 782150-31-2166OaooojjSlrejsor codes; unclassified (15 sources)Edema of lower extremity; Translations: [Localized edema]Onset: 088424-82-1389PgtwfzufMhfmnmqa codes; unclassified (10 sources)Noncompliance with treatment; Translations: [Non-compliant patient] Onset: 052130-63-2634AhsdmxswMjsnyubpnk arthritis and related disease (20 sources)Rheumatoid arthritis with rheumatoid factor of multiple sites without organ or systems involvement;Translations: [Rheumatoid arthritis]Onset: 10-06-2016 Resolved: 67-39-6479IngxhpmVhrrwhqpd-related disorders (17 sources)Smoker; Translations: [Nicotine dependence, unspecified, uncomplicated]Onset: 10-06-2016 Resolved: 302435-30-8506WwsyhxuUrwyljj disorders (19 sources)Hypothyroidism, unspecified; Translations: [Hypothyroidism]Onset: 10-24-9093SpyfdufYjnhrwsgvzrz (1 source)Unknown / UNK(Unknown)Onset: 04-15-2018 Past or Other Problems Problem ClassificationProblemDateDocumented DateEpisodic/ChronicDiabetes mellitus without complication (9 sources)Type 2 diabetes mellitus without complication; Translations: [Type 2 diabetes mellitus without complications]Onset: 11-22-2023 Resolved: 584278-98-4758HlzxpzdEvor disorders (9 sources)Mood disordersOnset: 12-13-2023 Resolved: Other connective tissue disease (9 sources)Calcaneal spur of left foot; Translations: [Calcaneal spur, left foot]Onset: 364216-23-6759XxljivgbHvwqb nutritional; endocrine; and metabolic disorders (9 sources)Morbid obesity; Translations: [Morbid (severe) obesity due to excess calories]Onset: 10-06-2016 Resolved: 212901-17-2257AlvqlqdOkfsuhjn codes; unclassified (11 sources)Tobacco user; Translations: [Tobacco use]Onset: 12-13-2023 Resolved: 366422-18-0988Fpssyklq Results Test NameValueInterpretationReference RangeFacilityALL CBC WITH AUTO DIFFon 39-70-3105GYODKOQTX ABSOLUTE VIUB2WYOD HealthcareBasophils/100 WBC (Bld)0.3 %0.2 - 2.0 %NOMCoxhealthEosinophils/100 WBC (Bld)6.1 %0.9 - 7.0 %[facility] Erythrocyte distribution width (RBC) [Ratio]14.9 %11.0 - 15.0 %[facility] Hematocrit (Bld) [Volume fraction]46.7 %36.0 - 48.0 %[facility] HospitalHemoglobin (Bld) [Mass/Vol]15 g/dL12.0 - 16.0 g/dLNONortheast Missouri Rural Health NetworkIMMATURE GRANULOCYTES ABS AUTO0.02NONortheast [facility] Health NetworkImmature granulocytes/100 WBC (Bld)0.3 %0.0 - 0.5 %[facility] HospitalInterpretation and review of laboratory resultsAbnormalNONort[facility] LYMPHOCYTES ABSOLUTE AUTO1.9NONortheast [facility] Health NetworkLymphocytes/100 WBC (Bld)26 %20.5 - 60.0 %[facility] HospitalMCH (RBC) [Entitic mass]33.6 pg26.7 - 34.0 pgNOOzarks Medical CenterHC (RBC) [Mass/Vol]32.1 g/dL29.9 - 35.2 g/dLSaint Luke's East HospitalMCV (RBC) [Entitic vol]104.5 aGOwic50.0 - 99.0 fLNONortheast Missouri Rural Health NetworkMONOCYTES ABSOLUTE AUTO 0.6NOMS HealthcareMonocytes/100 WBC (Bld)7.5 %1.7 - 12.0 %[facility] NEUTROPHILS ABSOLUTE AUTO4.4NONortheast Missouri Rural Health NetworkNeutrophils/100 WBC (Bld)59.8 %43.0 - 75.0 %[facility] HospitalPlatelet mean volume (Bld) [Entitic vol]9 fLLow9.5 - 13.5 fLSaint Luke's East HospitalTBH EO #0.5NOMS [facility] [id number] [facility] RBC4.47 NOMUniversity Health [facility] Center WBC7.3NONortheast [facility] Health NetworkCLINISYNCNOMS HealthcareALL CBC WITH AUTO DIFFon 78-17-3550KYTUUZKOU ABSOLUTE KVJB5NXPGNortheast Missouri Rural Health NetworkBasophils/100 WBC (Bld)0.3 %0.2 - 2.0 %[facility] HospitalEosinophils/100 WBC (Bld)4.4 %0.9 - 7.0 % [facility] HospitalErythrocyte distribution width (RBC) [Ratio]14.6 %11.0 - 15.0 % [facility] HospitalHematocrit (Bld) [Volume fraction]47.5 %36.0 - 48.0 %[facility] HospitalHemoglobin (Bld) [Mass/Vol]15.3 g/dL12.0 - 16.0 g/dLSaint [facility]'s [facility] Hospital IMMATURE GRANULOCYTES ABS AUTO0.03NONortheast [facility] Rural Health NetworkImvtture granulocytes/100 WBC (Bld)0.4 %0.0 - 0.5 %[facility] HospitalInterpretation and review of laboratory resultsAbnormalSaint Luke's East HospitalLYMPHOCYTES ABSOLUTE AUTO1.3NONort[facility] Lymphocytes/100 WBC (Bld)15.8 %Low20.5 - 60.0 %CoxHealthH (RBC) [Entitic mass]33.7 pg26.7 - 34.0 pgCoxHealthHC (RBC) [Mass/Vol]32.2 g/dL29.9 - 35.2 g/dLCoxHealthV (RBC) [Entitic vol]104.6 wDTglr11.0 - 99.0 fLSaint Luke's East HospitalMONOCYTES ABSOLUTE AUTO0.5NONortheast [facility] Rural Health NetworkMonocytes/100 WBC (Bld)6.4 % 1.7 - 12.0 %[facility] HospitalNEUTROPHILS ABSOLUTE AUTO5.8NOAR [facility] Neutrophils/100 WBC (Bld)72.7 %43.0 - 75.0 %[facility] HealthcarePlatelet mean volume (Bld) [Entitic vol]9.1 fLLow9.5 - 13.5 fLNOAR HealthcareTBH EO #0.4NOMS HealthcareTBH [id number] [facility] HospitalTB RBC4.54NOMS [facility] HospitalTB [id number] HealthcareCLINISYNCNOMS HealthcareMLR HEMOGLOBIN A1Con 55-62-9340Tvhzxnp [Mass/Vol]111 mg/dLNONortheast Missouri Rural Health NetworkEnpokwkmxkLcY2c (Bld) [Mass fraction]5.5 %4.5 - 6.2 % [facility] HealthcareComment on above:ADA RECOMMENDED LIMIT 4.0 - 6.0 ADA THERAPEUTIC TARGET < 7.0 ACTION SUGGESTED > 7.0 CLINISYNCNONortheast Missouri Rural Health NetworkCBC AUTO DIFFon 78-00-3350FSDP #0.0 103/ulNormal0.0-0.1 [facility] HospitalComment on above:Performed By: #### TSH #### [facility] [address] [place] [address] Dr. Marla VarnerBasophils/100 WBC (Bld)0.1 %Critically low0.2-2.0The [facility] CenterComment on above:Performed By: #### TSH #### [facility] [address] [place] [address] Dr. Marla Velasquez #0.3 103/ulNormal0.0-0.7The [facility] CenterComment on above: Performed By: #### TSH #### [facility] [address] [place] [address] Dr. Marla Schultzosinophils/100 WBC (Bld)4.6 %Normal0.9-7.0[facility] Comment on above:Performed By: #### TSH #### [facility] [address] [place] [address] Dr. Marla Schultzrythrocyte distribution width (RBC) [Ratio]14.6 %Hxodsm43.0-15.0 [facility] HospitalComment on above:Performed By: #### TSH #### [facility] [address] [place] [address] Dr. Marla VarnerHematocrit (Bld) [Volume fraction]46.0 %Hgrnay89.0-48.0The [facility] CenterComment on above:Performed By: #### TSH #### [facility] [address] [place] [address] Dr. Marla VarnerHemoglobin (Bld) [Mass/Vol]15.1 g/rXDohzvn56.0-16.0The [facility] CenterComment on above:Performed By: #### TSH #### [facility] [address] [place] [address] Dr. Marla VarnerIG #0.01 10e3/ulNormal0.00-0.03The [facility] CenterCombr[facility] on above:Performed By: #### TSH #### [facility] [address] [place] [address] Dr. Marla VarnerIG %0.1 %Normal0.0-0.5The [facility] CenterComment on above: Performed By: #### TSH #### [facility] [address] [place] [address] Dr. Marla Irby #1.3 103/ulNormal1.2-3.8The [facility] CenterCombronson lakeview hospital on above:Performed By: #### TSH #### [facility] [address] [place] [address] Dr. Marla Hydemphocytes/100 WBC (Bld)19.7 %Critically low20.5-60.0The [facility] CenterCombronson lakeview hospital on above:Performed By: #### TSH #### [facility] [address] [place] [address] Dr. Marla VarnerMANUAL DIFF REQNONormalThe [facility] CenterComment on above: Performed By: #### TSH #### [facility] [address] [place] [address] Dr. Marla Townsend (RBC) [Entitic mass]33.6 ygSnotrp78.7-34.0The [facility] CenterComment on above:Performed By: #### TSH #### [facility] [address] [address] [address] Marla McgrathHC (RBC) [Mass/Vol]32.8 g/fYZtydsw10.9-35.2The [facility] CenterComment on above:Performed By: #### TSH #### [facility] [address] [place] [address] Dr. Marla McgrathV (RBC) [Entitic vol]102.4 fLCritically high81.0-99.0The [facility] CenterComment on above:Performed By: #### TSH #### [facility] [address] [place] [address] Dr. Marla Morales #0.5 103/ulNormal0.3-0.8The [facility] CenterComment on above:Performed By: #### TSH #### [facility] [address] [place] [address] Dr. Marla Messinaocytes/100 WBC (Bld)7.3 %Normal1.7-12.0The [facility] Comment on above:Performed By: #### TSH #### [facility] [address] [place] [address] Dr. Marla Dave #4.6 103/ulNormal1.4-6.5The [facility] CenterComment on above:Performed By: #### TSH #### [facility] [address] [place] [address] Dr. Marla Mcallisterutrophils/100 WBC (Bld)68.2 %Epfcwe63.0-75.0The [facility] CenterComment on above:Performed By: #### TSH #### [facility] [address] [place] [address] Dr. Marla Obrienlet mean volume (Bld) [Entitic vol]9.1 fLCritically low 9.5-13.5The [facility] CenterComment on above:Performed By: #### TSH #### [facility] [address] [place] [address] Dr. Marla VarnerPLT194 103/nlAixfxr450-860Drn [facility] CenterComment on above: Performed By: #### TSH #### [facility] [address] [place] [address] Dr. Marla VarnerRBC4.49 106/ulNormal4.20-5.40The [facility] on above:Performed By: #### TSH #### [facility] [address] [place] [address] Dr. Marla VarnerWBC6.7 103/ulNormal4.0-11.0The [facility] Hospitalment on above: Performed By: #### TSH #### [facility] [address] [place] [address] Dr. Marla BeardF 14(COMP METB)on 64-47-5565Qyyiexp [Mass/Vol]3.6 g/dLNormal 3.4-5.0The [facility] on above:Performed By: #### URIC, CMP #### [facility] [address] [place] [address] Dr. Marla VarnerAlbumin/Globulin [Mass ratio]1.0 {ratio}NormalThe [facility] on above:Performed By: #### URIC, CMP #### [facility] [address] [place] [address] Dr. Marla Bynum [Catalytic activity/Vol]93 U/MXvagfj24-842Epr [facility] on above:Performed By: #### URIC, CMP #### [facility] [address] [place] [address] Dr. Marla Altamirano [Catalytic activity/Vol]26 U/VMbdykw19-78Rpx [facility] on above:Performed By: #### URIC, CMP #### [facility] [address] [place] [address] Dr. Marla Rowell gap [Moles/Vol]12.3 mmol/LNormalThe [facility] on above:Performed By: #### URIC, CMP #### [facility] [address] [place] [address] Dr. Marla Reyes [Catalytic activity/Vol]20 U/QClcdpn56-37Pyv [facility]Comment on above:Performed By: #### URIC, CMP #### [facility] [address] [address] [address] Marla VarnerBilirubin [Mass/Vol]0.4 mg/dLNormal0.2-1.0The [facility] Comment on above:Performed By: #### URIC, CMP #### [facility] [address] [place] [address] Dr. Marla VarnerCalcium [Mass/Vol]9.2 mg/dLNormal8.5-10.1The [facility] Comment on above:Performed By: #### URIC, CMP #### [facility] [address] [place] [address] Dr. Marla VarnerChloride [Moles/Vol]102 mmol/VIrqcwi89-025Aqc [facility] Comment on above:Performed By: #### URIC, CMP #### [facility] [address] [place] [address] Dr. Marla VarnerCO2 [Moles/Vol]32.3 mmol/LCritically high21.0-32.0The [facility] CenterComment on above:Performed By: #### URIC, CMP #### [facility] [address] [place] [address] Dr. Marla VarnerCreatinine [Mass/Vol]0.84 mg/dLNormal0.55-1.02The [facility] CenterComment on above:Performed By: #### URIC, CMP #### [facility] [address] [place] [address] Dr. Marla SchultzGFR-AF AUSTRALIAN>60Normal>=60The [facility] CenterComment on above:Performed By: #### URIC, CMP #### [facility] [address] [place] [address] Dr. Marla SchultzGFR-NON AF AUSTRALIAN>60Normal>=60The [facility]Com[facility] on above:Performed By: #### URIC, CMP #### [facility] [address] [place] [address] Dr. Marla VarnerGlobulin (S) [Mass/Vol]3.7 g/dLNormalThe [facility] HospitalComment on above:Performed By: #### URIC, CMP #### [facility] [address] [address] [address] Marla VarnerGlucose [Mass/Vol]114 mg/dLCritically yzel93-691Cbg [facility] CenterComment on above:Performed By: #### URIC, CMP #### [facility] [address] [place] [address] Dr. Marla VarnerPotassium [Moles/Vol]4.6 mmol/LNormal3.5-5.1The [facility] Comment on above:Performed By: #### URIC, CMP #### [facility] [address] [place] [address] Dr. Marla VarnerProtein [Mass/Vol]7.3 g/dLNormal6.4-8.2[facility] Comment on above:Performed By: #### URIC, CMP #### [facility] [address] [place] [address] Dr. Marla VarnerSodium [Moles/Vol]142 mmol/TXintzv354-552Zna [facility] Comment on above:Performed By: #### URIC, CMP #### [facility] [address] [place] [address] Dr. Marla VarnerUrea nitrogen [Mass/Vol]15.0 mg/dLNormal7.0-18.0The [facility] CenterComment on above:Performed By: #### URIC, CMP #### [facility] [address] [place] [address] Dr. Marla Vital nitrogen/Creatinine [Mass ratio]17.9 mg/mgNoAshtabula County Medical CenterComment on above:Performed By: #### URIC, CMP #### [facility] [address] [place] [address] Dr. Marla VarnerSED RATE WESTERGRENon 93-56-6213ITN RATE47 mm/hrCritically high <=30The [facility] CenterComment on above:Performed By: #### SEDR #### [facility] [address] [place] [address] Dr. Marla Leavitt ACID SERUMon 22-52-0822Qtuia [Mass/Vol]3.3 mg/dLNormal 2.6-6.0The [facility] CenterComment on above:Performed By: #### URIC, CMP #### [facility] [address] [place] [address] Dr. Marla Lowe AUTO DIFFon 21-44-8589ZTHQ #0.0 103/ulNormal0.0-0.1The [facility] CenterComment on above:Performed By: #### INSULT #### [facility] [address] [place] [address] Dr. Marla VarnerBasophils/100 WBC (Bld)0.3 %Normal0.2-2.0The [facility] Comment on above:Performed By: #### INSULT #### [facility] [address] [place] [address] Dr. Gutiérrez ChangEO #0.4 103/ulNormal0.0-0.7The [facility] CenterComment on above: Performed By: #### INSULT #### [facility] [address] [place] [address] Dr. Marla Schultzosinophils/100 WBC (Bld)5.8 %Normal0.9-7.0The [facility] Comment on above:Performed By: #### INSULT #### [facility] [address] [place] [address] Dr. Marla Schultzrythrocyte distribution width (RBC) [Ratio]14.8 %Dhgiit46.0-15.0 The [facility] CenterComment on above:Performed By: #### INSULT #### [facility] [address] [place] [address] Dr. Marla VarnerHematocrit (Bld) [Volume fraction]44.4 %Aptjzv72.0-48.0The [facility] CenterComment on above:Performed By: #### INSULT #### [facility] [address] [place] [address] Dr. Marla VarnerHemoglobin (Bld) [Mass/Vol]14.6 g/mMMfapzr63.0-16.0The [facility] HospitalComment on above:Performed By: #### INSULT #### [facility] [address] [address] [address] Marla Quezada #0.02 10e3/ulNormal0.00-0.03The [facility] on above:Performed By: #### INSULT #### [facility] [address] [place] [address] Dr. Marla Quezada %0.3 %Normal0.0-0.5The [facility] CenterComment on above: Performed By: #### INSULT #### [facility] [address] [place] [address] Dr. Marla Irby #1.6 103/ulNormal1.2-3.8The [facility] on above:Performed By: #### INSULT #### [facility] [address] [place] [address] Dr. Marla Ibarrahocytes/100 WBC (Bld)21.6 %Zmemle86.5-60.0The [facility] on above:Performed By: #### INSULT #### [facility] [address] [place] [address] Dr. Marla TranUAL DIFF REQNONormalThe [facility] CenterCom[facility] on above: Performed By: #### INSULT #### [facility] [address] [place] [address] Dr. Marla Mcgrath (RBC) [Entitic mass]33.8 luWeortb06.7-34.0The [facility] CenterComment on above:Performed By: #### INSULT #### [facility] [address] [place] [address] Dr. Marla Mcgrath (RBC) [Mass/Vol]32.9 g/qPZoeyfd70.9-35.2The [facility]ment on above:Performed By: #### INSULT #### [facility] [address] [place] [address] Dr. Marla Mcrgath (RBC) [Entitic vol]102.8 fLCritically high81.0-99.0The [facility] HospitalComment on above:Performed By: #### INSULT #### [facility] [address] [address] [address] Marla Morales #0.5 103/ulNormal0.3-0.8The [facility] CenterComment on above:Performed By: #### INSULT #### [facility] [address] [address] [address] Marla Messinaocytes/100 WBC (Bld)6.9 %Normal1.7-12.0The [facility] Comment on above:Performed By: #### INSULT #### [facility] [address] [place] [address] Dr. Marla Dave #4.7 103/ulNormal1.4-6.5The [facility] CenterComment on above:Performed By: #### INSULT #### [facility] [address] [place] [address] Dr. Marla Mcallisterutrophils/100 WBC (Bld)65.1 %Gfwpye08.0-75.0The [facility] CenterComment on above:Performed By: #### INSULT #### [facility] [address] [place] [address] Dr. Marla Walden mean volume (Bld) [Entitic vol]9.3 fLCritically low 9.5-13.5The [facility] CenterComment on above:Performed By: #### INSULT #### [facility] [address] [place] [address] Dr. Mrala VarnerPLT200 103/imIuimsr958-491Htz [facility] CenterComment on above: Performed By: #### INSULT #### [facility] [address] [place] [address] Dr. Marla VarnerRBC4.32 106/ulNormal4.20-5.40The [facility] CenterComment on above:Performed By: #### INSULT #### [facility] [address] [place] [address] Dr. Marla VarnerWBC7.2 103/ulNormal4.0-11.0The [facility] CenterComment on above: Performed By: #### INSULT #### [facility] [address] [place] [address] Dr. Marla Love T3on 67-94-3984LKHU T32.20 pg/mlLNormal2.18-3.98The [facility] Hospitalment on above:Performed By: #### TSH #### [facility] [address] [place] [address] Dr. Marla Love T4on 43-80-3109Mktw T4 [Mass/Vol]1.30 ng/dLNormal0.76-1.46 The [facility] CenterComment on above:Performed By: #### TSH #### [facility] [address] [place] [address] Dr. Marla Solis 14(COMP METB)on 63-29-1328Blsneph [Mass/Vol]3.4 g/dLNormal 3.4-5.0The [facility] CenterComment on above:Performed By: #### CMP, URIC #### [facility] [address] [place] [address] Dr. Marla VarnerAlbumin/Globulin [Mass ratio]0.9 {ratio}NormalThe [facility] Hospitalment on above:Performed By: #### CMP, URIC #### [facility] [address] [place] [address] Dr. Marla Bynum [Catalytic activity/Vol]92 U/RXtazez61-154Nvj [facility] Hospitalment on above:Performed By: #### CMP, URIC #### [facility] [address] [place] [address] Dr. Marla Altamirano [Catalytic activity/Vol]17 U/PRwfplg41-62Jbt [facility] Hospitalment on above:Performed By: #### CMP, URIC #### [facility] [address] [place] [address] Dr. Marla Rowell gap [Moles/Vol]10.7 mmol/LNormalThe [facility] on above:Performed By: #### CMP, URIC #### [facility] [address] [address] [address] Marla VarnerAST [Catalytic activity/Vol]17 U/GPgzxrp90-79Iib [facility] CenterComment on above:Performed By: #### CMP, URIC #### [facility] [address] [address] [address] Marla VarnerBilirubin [Mass/Vol]0.4 mg/dLNormal0.2-1.0The [facility] Comment on above:Performed By: #### CMP, URIC #### [facility] [address] [place] [address] Dr. Marla VarnerCalcium [Mass/Vol]8.8 mg/dLNormal8.5-10.1The [facility] Comment on above:Performed By: #### CMP, URIC #### [facility] [address] [place] [address] Dr. Marla VarnerChloride [Moles/Vol]101 mmol/RTcpxyn68-392Xwi [facility] Comment on above:Performed By: #### CMP, URIC #### [facility] [address] [place] [address] Dr. Marla VarnerCO2 [Moles/Vol]32.5 mmol/LCritically high21.0-32.0The [facility] CenterComment on above:Performed By: #### CMP, URIC #### [facility] [address] [place] [address] Dr. Marla VarnerCreatinine [Mass/Vol]0.72 mg/dLNormal0.55-1.02The [facility] CenterComment on above:Performed By: #### CMP, URIC #### [facility] [address] [place] [address] Dr. Marla SchultzGFR-AF AUSTRALIAN>60Normal>=60The [facility] CenterComment on above:Performed By: #### CMP, URIC #### [facility] [address] [place] [address] Dr. Marla SchultzGFR-NON AF AUSTRALIAN>60Normal>=60The [facility] CenterComment on above:Performed By: #### CMP, URIC #### [facility] [address] [address] [address] Marla VarnerGlobulin (S) [Mass/Vol]3.8 g/dLNormGenesis HospitalComment on above:Performed By: #### CMP, URIC #### [facility] [address] [address] [address] Marla VarnerGlucose [Mass/Vol]101 mg/kSPhhbyr70-902Uot [facility] Comment on above:Performed By: #### CMP, URIC #### [facility] [address] [address] [address] Marla VarnerPotassium [Moles/Vol]4.2 mmol/LNormal3.5-5.1The [facility] Comment on above:Performed By: #### CMP, URIC #### [facility] [address] [address] [address] Marla VarnerProtein [Mass/Vol]7.2 g/dLNormal6.4-8.2The [facility] Comment on above:Performed By: #### CMP, URIC #### [facility] [address] [address] [address] Marla VarnerSodium [Moles/Vol]140 mmol/CInixon250-590Mdd [facility] Comment on above:Performed By: #### CMP, URIC #### [facility] [address] [address] [address] Marla VarnerUrea nitrogen [Mass/Vol]11.0 mg/dLNormal7.0-18.0The [facility] CenterComment on above:Performed By: #### CMP, URIC #### [facility] [address] [address] [address] Marla Vital nitrogen/Creatinine [Mass ratio]15.3 mg/mgNoAshtabula County Medical CenterComment on above:Performed By: #### CMP, URIC #### [facility] [address] [address] [address] Marla Noel RATE WESTERGRENon 18-00-7906GTM RATE51 mm/hrCritically high <=30The [facility] CenterComment on above:Performed By: #### SEDR #### [facility] [address] [place] [address] Dr. Marla PattonHocharlene 30-89-5240KAP2.307 uIU/mLNormal0.358-3.740The [facility] CenterComment on above:Performed By: #### TSH #### [facility] [address] [place] [address] Dr. Marla VarnerURIC ACID SERUMon 56-42-6958Xzqja [Mass/Vol]3.2 mg/dLNormal 2.6-6.0The [facility] CenterComment on above:Performed By: #### CMP, URIC #### [facility] [address] [place] [address] Dr. Marla VarnerINSULIN FREE AND TOTALon 54-21-7706Lgls Vrfngrx61 uU/mLNormalCleveland Clinic [facility]odi HospitalComment on above:Result Comment: Reference Range: Pubertal Children and Adults (fasting): 0 - 17Performed By: #### INSULT #### [facility] [address] [place] [address] Dr. Marla VarnerTotal Cvpudiv10 uU/mLNormalCleveland Clinic [facility] HospitalCombronson lake[facility] hospital on above: Result Comment: Non-Diabetic: In [...] developed and its performance characteristics determined by [employer]. It has not been cleared or approved by the Food and Drug Administration.Performed By: #### INSULT #### [facility] [address] [place] [address] Dr. Marla VarnerCBC AUTO DIFFon 10-27-6820TPXF #0.0 103/ulNormal0.0-0.1The [facility] on above:Performed By: #### TSH #### [facility] [address] [address] [address] Marla VarnerBasophils/100 WBC (Bld)0.3 %Normal0.2-2.0The [facility] Comment on above:Performed By: #### TSH #### [facility] [address] [address] [address] Marla Velasquez #0.2 103/ulNormal0.0-0.7The [facility] CenterComment on above: Performed By: #### TSH #### [facility] [address] [place] [address] Dr. Marla Schultzosinophils/100 WBC (Bld)2.7 %Normal0.9-7.0The [facility] Comment on above:Performed By: #### TSH #### [facility] [address] [place] [address] Dr. Marla Schultzrythrocyte distribution width (RBC) [Ratio]14.8 %Hfjfby76.0-15.0 The [facility] CenterComment on above:Performed By: #### TSH #### [facility] [address] [place] [address] Dr. Marla VarnerHematocrit (Bld) [Volume fraction]47.6 %Ngrggz24.0-48.0The [facility] CenterComment on above:Performed By: #### TSH #### [facility] [address] [place] [address] Dr. Marla VarnerHemoglobin (Bld) [Mass/Vol]15.4 g/eVJjnohy66.0-16.0The [facility] CenterComment on above:Performed By: #### TSH #### [facility] [address] [place] [address] Dr. Marla Quezada #0.03 10e3/ulNormal0.00-0.03The [facility] CenterComment on above:Performed By: #### TSH #### [facility] [address] [place] [address] Dr. Marla Quezada %0.4 %Normal0.0-0.5The [facility] CenterComment on above: Performed By: #### TSH #### [facility] [address] [address] [address] Marla Irby #1.6 103/ulNormal1.2-3.8The [facility] CenterCombronson [facility] hospital on above:Performed By: #### TSH #### [facility] [address] [place] [address] Dr. Marla Ibarrahocytes/100 WBC (Bld)21.1 %Enbxhs47.5-60.0The [facility] CenterCombronson [facility] hospital on above:Performed By: #### TSH #### [facility] [address] [place] [address] Dr. Marla Rivas DIFF REQNONormalThe [facility] CenterCombronson lakeview hospital on above: Performed By: #### TSH #### [facility] [address] [place] [address] Dr. Marla Mcgrath (RBC) [Entitic mass]34.2 pgCritically high26.7-34.0The [facility] on above:Performed By: #### TSH #### [facility] [address] [place] [address] Dr. Marla Mcgrath (RBC) [Mass/Vol]32.4 g/bLKijmsy97.9-35.2The [facility] on above:Performed By: #### TSH #### [facility] [address] [place] [address] Dr. Marla Mcgrath (RBC) [Entitic vol]105.8 fLCritically high81.0-99.0The [facility] on above:Performed By: #### TSH #### [facility] [address] [place] [address] Dr. Marla Morales #0.5 103/ulNormal0.3-0.8The [facility] on above:Performed By: #### TSH #### [facility] [address] [place] [address] Dr. Marla Messinaocytes/100 WBC (Bld)7.4 %Normal1.7-12.0The [facility] Comment on above:Performed By: #### TSH #### [facility] [address] [place] [address] Dr. Marla McallisterUT #5.0 103/ulNormal1.4-6.5The [facility] CenterComment on above:Performed By: #### TSH #### [facility] [address] [place] [address] Dr. Marla Mcallisterutrophils/100 WBC (Bld)68.1 %Rbhthk66.0-75.0The [facility] CenterComment on above:Performed By: #### TSH #### [facility] [address] [place] [address] Dr. Marla Walden mean volume (Bld) [Entitic vol]10.5 fLNormal9.5-13.5The [facility] CenterComment on above:Performed By: #### TSH #### [facility] [address] [place] [address] Dr. Marla VarnerPLT207 103/jgQcotla750-513Kgj [facility] CenterComment on above: Performed By: #### TSH #### [facility] [address] [place] [address] Dr. Marla VarnerRBC4.50 106/ulNormal4.20-5.40The [facility] CenterComment on above:Performed By: #### TSH #### [facility] [address] [place] [address] Dr. Marla VarnerWBC7.3 103/ulNormal4.0-11.0The [facility] CenterComment on above: Performed By: #### TSH #### [facility] [address] [place] [address] Dr. Marla Love T4on 91-58-5191Kjgt T4 [Mass/Vol]1.75 ng/dLCritically high 0.76-1.46The [facility] CenterComment on above:Performed By: #### TSH #### [facility] [address] [place] [address] Dr. Yilan ChangPROF 14(COMP METB)on 12-45-3270Fqxrcja [Mass/Vol]3.7 g/dLNormal 3.4-5.0The [facility] CenterComment on above:Performed By: #### INSULT #### [facility] [address] [place] [address] Dr. Marla VarnerAlbumin/Globulin [Mass ratio]1.0 {ratio}NormalThe [facility] CenterComment on above:Performed By: #### INSULT #### [facility] [address] [place] [address] Dr. Marla GarcíaP [Catalytic activity/Vol]99 U/QShqxku71-622Bti [facility] CenterComment on above:Performed By: #### INSULT #### [facility] [address] [place] [address] Dr. Marla GarcíaT [Catalytic activity/Vol]25 U/IDhuzxw66-45Yzp [facility] CenterComment on above:Performed By: #### INSULT #### [facility] [address] [place] [address] Dr. Marla Farraron gap [Moles/Vol]15.7 mmol/LNormalThe [facility] Comment on above:Performed By: #### INSULT #### [facility] [address] [place] [address] Dr. Marla VarnerAST [Catalytic activity/Vol]20 U/EBhmbix11-96Jwf [facility] CenterComment on above:Performed By: #### INSULT #### [facility] [address] [place] [address] Dr. Marla VarnerBilirubin [Mass/Vol]0.4 mg/dLNormal0.2-1.0The [facility] Comment on above:Performed By: #### INSULT #### [facility] [address] [place] [address] Dr. Marla VarnerCalcium [Mass/Vol]8.9 mg/dLNormal8.5-10.1The [facility] Comment on above:Performed By: #### INSULT #### [facility] [address] [place] [address] Dr. Marla VarnerChloride [Moles/Vol]99 mmol/OCmwsar08-304Agz [facility] Comment on above:Performed By: #### INSULT #### [facility] [address] [place] [address] Dr. Marla VarnerCO2 [Moles/Vol]25.3 mmol/EPbhqup55.0-32.0The [facility] Comment on above:Performed By: #### INSULT #### [facility] [address] [place] [address] Dr. Marla VarnerCreatinine [Mass/Vol]0.80 mg/dLNormal0.55-1.02The [facility] CenterComment on above:Performed By: #### INSULT #### [facility] [address] [place] [address] Dr. Marla SchultzGFR-AF AUSTRALIAN>60Normal>=60The [facility] CenterComment on above:Performed By: #### INSULT #### [facility] [address] [place] [address] Dr. Marla SchultzGFR-NON AF AUSTRALIAN>60Normal>=60The [facility] CenterComment on above:Performed By: #### INSULT #### [facility] [address] [place] [address] Dr. Marla VarnerGlobulin (S) [Mass/Vol]3.6 g/dLNormalThe [facility] CenterComment on above:Performed By: #### INSULT #### [facility] [address] [place] [address] Dr. Marla VarnerGlucose [Mass/Vol]113 mg/dLCritically mxxy43-387Waw [facility] CenterComment on above:Performed By: #### INSULT #### [facility] [address] [place] [address] Dr. Marla VarnerPotassium [Moles/Vol]4.0 mmol/LNormal3.5-5.1The [facility] Comment on above:Performed By: #### INSULT #### [facility] [address] [place] [address] Dr. Marla VarnerProtein [Mass/Vol]7.3 g/dLNormal6.4-8.2The [facility] Comment on above:Performed By: #### INSULT #### [facility] [address] [place] [address] Dr. Marla VarnerSodium [Moles/Vol]136 mmol/GIqtytt725-098Jtc [facility] Comment on above:Performed By: #### INSULT #### [facility] [address] [place] [address] Dr. Marla VarnerUrea nitrogen [Mass/Vol]10.0 mg/dLNormal7.0-18.0The [facility] CenterComment on above:Performed By: #### INSULT #### [facility] [address] [place] [address] Dr. Marla Vital nitrogen/Creatinine [Mass ratio]12.5 mg/mgNormalThe [facility] CenterComment on above:Performed By: #### INSULT #### [facility] [address] [place] [address] Dr. Marla Noel RATE WESTERGRENon 80-01-4827AJP RATE34 mm/hrCritically high <=30The [facility] CenterComment on above:Performed By: #### TSH #### [facility] [address] [place] [address] Dr. Marla Joyce 49-00-1689SRV7.152 uIU/mLCritically low0.358-3.740The [facility] CenterComment on above:Performed By: #### TSH #### [facility] [address] [place] [address] Dr. Marla VarnerURIC ACID SERUMon 98-95-0889Dmrtp [Mass/Vol]3.3 mg/dLNormal 2.6-6.0The [facility] CenterComment on above:Performed By: #### INSULT #### [facility] [address] [place] [address] Dr. Marla Lowe AUTO DIFFon 33-89-0041YOHA #0.0 103/ulNormal0.0-0.1The [facility] CenterComment on above:Performed By: #### TSH #### [facility] [address] [place] [address] Dr. Marla VarnerBasophils/100 WBC (Bld)0.1 %Critically low0.2-2.0The [facility] Hospitalment on above:Performed By: #### TSH #### [facility] [address] [place] [address] Dr. Marla Velasquez #0.4 103/ulNormal0.0-0.7The [facility] CenterComment on above: Performed By: #### TSH #### [facility] [address] [place] [address] Dr. Marla Schultzosinophils/100 WBC (Bld)5.1 %Normal0.9-7.0The [facility] Comment on above:Performed By: #### TSH #### [facility] [address] [place] [address] Dr. Marla Schultzrythrocyte distribution width (RBC) [Ratio]14.5 %Batrlw20.0-15.0 The [facility] CenterComment on above:Performed By: #### TSH #### [facility] [address] [place] [address] Dr. Marla VarnerHematocrit (Bld) [Volume fraction]45.7 %Zniuin18.0-48.0The [facility] Hospitalment on above:Performed By: #### TSH #### [facility] [address] [place] [address] Dr. Marla VarnerHemoglobin (Bld) [Mass/Vol]14.6 g/vABsppma19.0-16.0The [facility] Hospitalment on above:Performed By: #### TSH #### [facility] [address] [place] [address] Dr. Marla Quezada #0.03 10e3/ulNormal0.00-0.03The [facility] CenterComment on above:Performed By: #### TSH #### [facility] [address] [place] [address] Dr. Marla Quezada %0.4 %Normal0.0-0.5The [facility] CenterComment on above: Performed By: #### TSH #### [facility] [address] [address] [address] Marla Irby #0.9 103/ulCritically low1.2-3.8The [facility] Comment on above:Performed By: #### TSH #### [facility] [address] [address] [address] Marla Ibarrahocytes/100 WBC (Bld)11.3 %Critically low20.5-60.0The [facility] CenterComment on above:Performed By: #### TSH #### [facility] [address] [address] [address] Marla Rivas DIFF REQNONormalThe [facility] CenterComment on above: Performed By: #### TSH #### [facility] [address] [place] [address] Dr. Marla Mcgrath (RBC) [Entitic mass]33.4 ypOterks92.7-34.0The [facility] CenterComment on above:Performed By: #### TSH #### [facility] [address] [place] [address] Dr. Marla Mcgrath (RBC) [Mass/Vol]31.9 g/jQQraozj32.9-35.2The [facility] CenterComment on above:Performed By: #### TSH #### [facility] [address] [place] [address] Dr. Marla Mcgrath (RBC) [Entitic vol]104.6 fLCritically high81.0-99.0The [facility] CenterComment on above:Performed By: #### TSH #### [facility] [address] [address] [address] Marla Morales #0.3 103/ulNormal0.3-0.8The [facility] CenterComment on above:Performed By: #### TSH #### [facility] [address] [place] [address] Dr. Marla Messinaocytes/100 WBC (Bld)3.9 %Normal1.7-12.0The [facility] Comment on above:Performed By: #### TSH #### [facility] [address] [address] [address] Marla Dave #6.1 103/ulNormal1.4-6.5The [facility] CenterComment on above:Performed By: #### TSH #### [facility] [address] [place] [address] Dr. Marla Mcallisterutrophils/100 WBC (Bld)79.2 %Critically high43.0-75.0The [facility] CenterComment on above:Performed By: #### TSH #### [facility] [address] [place] [address] Dr. Marla VarnerPlatelet mean volume (Bld) [Entitic vol]10.4 fLNormal9.5-13.5The [facility] CenterComment on above:Performed By: #### TSH #### [facility] [address] [place] [address] Dr. Marla VarnerPLT195 103/eiDhrqux729-677Hmm [facility] CenterComment on above: Performed By: #### TSH #### [facility] [address] [place] [address] Dr. Marla VarnerRBC4.37 106/ulNormal4.20-5.40The [facility] Hospitalment on above:Performed By: #### TSH #### [facility] [address] [place] [address] Dr. Marla VarnerWBC7.7 103/ulNormal4.0-11.0The [facility] CenterComment on above: Performed By: #### TSH #### [facility] [address] [place] [address] Dr. Marla VarnerPROF 14(COMP METB)on 75-32-0271Hftuoia [Mass/Vol]3.3 g/dL Critically low3.4-5.0The [facility] CenterComment on above:Performed By: #### URIC, CMP #### [facility] [address] [place] [address] Dr. Yilan ChangAlbumin/Globulin [Mass ratio]0.8 {ratio}NormalThe [facility] CenterComment on above:Performed By: #### URIC, CMP #### [facility] [address] [place] [address] Dr. Marla Bynum [Catalytic activity/Vol]97 U/BHhnewd26-697Wzn [facility] CenterComment on above:Performed By: #### URIC, CMP #### [facility] [address] [place] [address] Dr. Marla Altamirano [Catalytic activity/Vol]26 U/JSuhnjf21-78Cog [facility] CenterComment on above:Performed By: #### URIC, CMP #### [facility] [address] [place] [address] Dr. Marla Rowell gap [Moles/Vol]18.0 mmol/LNormalThe [facility] Comment on above:Performed By: #### URIC, CMP #### [facility] [address] [place] [address] Dr. Marla Reyes [Catalytic activity/Vol]17 U/XHiuyjx11-81Ckj [facility] Hospitalment on above:Performed By: #### URIC, CMP #### [facility] [address] [place] [address] Dr. Marla VarnerBilirubin [Mass/Vol]0.5 mg/dLNormal0.2-1.0The [facility] Comment on above:Performed By: #### URIC, CMP #### [facility] [address] [place] [address] Dr. Marla VarnerCalcium [Mass/Vol]8.8 mg/dLNormal8.5-10.1[facility] Comment on above:Performed By: #### URIC, CMP #### [facility] [address] [place] [address] Dr. Marla VarnerChloride [Moles/Vol]100 mmol/TBnhcro91-772Gtk [facility] Comment on above:Performed By: #### URIC, CMP #### [facility] [address] [place] [address] Dr. Marla VarnerCO2 [Moles/Vol]25.3 mmol/AWlpqfb88.0-32.0The [facility] Comment on above:Performed By: #### URIC, CMP #### [facility] [address] [place] [address] Dr. Marla VarnerCreatinine [Mass/Vol]0.95 mg/dLNormal0.55-1.02The [facility] CenterComment on above:Performed By: #### URIC, CMP #### [facility] [address] [address] [address] Marla SchultzGFR-AF AUSTRALIAN>60Normal>=60The [facility] CenterComment on above:Performed By: #### URIC, CMP #### [facility] [address] [place] [address] Dr. Marla SchultzGFR-NON AF VNBZXSIN87 mL/min/1.42l8Gduxaxeaco low>=60The [facility] CenterComment on above:Performed By: #### URIC, CMP #### [facility] [address] [place] [address] Dr. Marla VarnerGlobulin (S) [Mass/Vol]3.9 g/dLNormalThe [facility] CenterComment on above:Performed By: #### URIC, CMP #### [facility] [address] [place] [address] Dr. Marla VarnerGlucose [Mass/Vol]253 mg/dLCritically ckgf25-789Uqa [facility] CenterComment on above:Performed By: #### URIC, CMP #### [facility] [address] [place] [address] Dr. Marla VarnerPotassium [Moles/Vol]4.3 mmol/LNormal3.5-5.1The [facility] Comment on above:Performed By: #### URIC, CMP #### [facility] [address] [place] [address] Dr. Marla VarnerProtein [Mass/Vol]7.2 g/dLNormal6.4-8.2The [facility] Comment on above:Performed By: #### URIC, CMP #### [facility] [address] [place] [address] Dr. Marla Dowdium [Moles/Vol]139 mmol/RXyyiek989-950Ezu [facility] Comment on above:Performed By: #### URIC, CMP #### [facility] [address] [place] [address] Dr. Marla Vital nitrogen [Mass/Vol]13.0 mg/dLNormal7.0-18.0The [facility] CenterComment on above:Performed By: #### URIC, CMP #### [facility] [address] [place] [address] Dr. Marla Vital nitrogen/Creatinine [Mass ratio]13.6 mg/mgNormalThe [facility] CenterComment on above:Performed By: #### URIC, CMP #### [facility] [address] [place] [address] Dr. Marla Noel RATE WESTERGRENon 43-62-1878KMX RATE35 mm/hrCritically high <=30The [facility] CenterComment on above:Performed By: #### TSH #### [facility] [address] [place] [address] Dr. Marla Leavitt ACID SERUMon 15-60-0175Mshlg [Mass/Vol]3.6 mg/dLNormal 2.6-6.0The [facility] CenterComment on above:Performed By: #### URIC, CMP #### [facility] [address] [place] [address] Dr. Marla VarnerXR DEXA BONE DENSITYon 31-07-6523KD DEXA BONE DENSITYEXAMINATION: XR DEXA BONE DENSITY, [...] Electronically authenticated by: KALEIGH SUTHERLAND Date: 2022-01-19 11:23[facility] HospitalCNOVSPon 90-98-6028TLXKUNMkydf (SP) Office (GYNOSA) --------EUNICE CASTILLO ([id number]) 1950 FDate Time Provider Department10/21/18 10:40 AM [...] this office note were sent to:[place] [address]?CC:Yimi Montemayor DO (PCP)Referring Provider: BLAINE THOMPSON [[id number]]Allergies As of Date: 10/21/2018 Noted Allergy ReactionPENICILLINS [...] (VIT B-12) 1,0* Inject 1,000 mcg intramuscula* UAALJQKQQR591 MG CAPSULE Take 100 mg by mouth [...] More...Encounter Status:Closed by BLAINE THOMPSON MD on 10/23/18NoChillicothe Hospitalon 49-84-7909Dauqlyt mass conc HNO ID: [id number]: Blaine Maldonadoervice: (none)Author Type: PhysicianType: Progress NotesFiled: [...] this office note were sent to:[place] [address]?CC:Yimi Montemayor DO (PCP)NormalAkron Children'S HospitalCNOVon 76-44-9760FOMZSggykd Visit (GYNOSA) --------EUNICE CASTILLO ([id number]) 1950 FDate Time Provider Department04/15/18 8:00 AM [...] I advised her to follow with her educational consultant f or routine health and gynmaintenance exams3. I will see her in 6 monthsBlaine Thompson MD, MPH25 min spent with the patient with >50% face to face counselingA letter and a copy of this office note were sent to:[place] [address]?CC:Yimi Montemayor DO (PCP)Referring Provider: BLAINE THOMPSON [[id number]]Allergies As of Date: 04/15/2018 Noted Allergy ReactionPENICILLINS [...] More... Status:Closed by BLAINE THOMPSON MD on 04/15/18[facility] 30-04-3549Vegqzgr mass concHNO ID: [id number]: Blaine Maldonadoervice: (none)Author Type: PhysicianType: Progress NotesFiled: [...] I advised her to follow with her educational consultant for routine health andgyn maintenance exams3. I will see her in 6 monthsBlaine Thompson MD, MPH25 min spent with the patient with >50% face to face counselingA letter and a copy of this office note were sent to:[place] [address]?CC:Yimi Montemayor DO (PCP)NormalAkron Children'S Hospital Vital Signs Date TimeVital SignValuePerforming PyaykobdhRvxtknbt87-03-5955 10:59-0400Body udjjqe747.1 Donna LARA Work Phone: [facility]09-29-2025 10:59-0400 Body mass index (BMI) [Ratio]40.4 kg/m2Lisa Milton LARA Work Phone: [facility]09-29-2025 10:59-0400 Body mguumhlrhvb10.7 [degF]Brunilda Aichholz GOVERNMENT AFFAIRS DIRECTOR-C Work Phone: [phone] [place], [place] 3170909-29-2025 10:59-0400 Body fyidmi653.27 kgLisa Aichholz GOVERNMENT AFFAIRS DIRECTOR-C Work Phone: [phone] [place], [place] 3170909-29-2025 10:59-0400 Diastolic blood mhyltnof55 mm[Hg]Brunilda Aichholz GOVERNMENT AFFAIRS DIRECTOR-C Work Phone: [phone]09-29-2025 10:59-0400 Heart rate63 /minLisa Aichholz GOVERNMENT AFFAIRS DIRECTOR-C Work Phone: [phone]09-29-2025 10:59-0400 Respiratory rate18 /minLisa Aichholz GOVERNMENT AFFAIRS DIRECTOR-C Work Phone: [phone] [place], [place] 3170909-29-2025 10:59-0400 SaO2% (BldA) [Mass fraction]97 %Brunilda Aichholz GOVERNMENT AFFAIRS DIRECTOR-C Work Phone: [phone] [place], [place] 3170909-29-2025 10:59-0400 Systolic blood rvueobek325 mm[Hg]Brunilda Aichholz GOVERNMENT AFFAIRS DIRECTOR-C Work Phone: [phone] [place], [place] 3170903-05-2025 10:30-0500 Body tlyqyy891.6 cmLisa Aichholz GOVERNMENT AFFAIRS DIRECTOR Work Phone: [facility] HospitalIohiptbmdg27-94-4654 10:30-0500Body mass index (BMI) [Ratio]41.95 kg/m2Lisa Aichholz GOVERNMENT AFFAIRS DIRECTOR Work Phone: [facility] HospitalUhnghooset54-11-2328 10:30-0500Body temperature 98.29 [degF]Brunilda Aichholz GOVERNMENT AFFAIRS DIRECTOR Work Phone: [facility] HospitalVwyycaqiuj65-09-8472 10:30-0500Body efroud830.86 kgLisa Aichholz GOVERNMENT AFFAIRS DIRECTOR Work Phone: [facility] HospitalRajxezorto47-73-4219 10:30-0500Diastolic blood jpvlzgaq12 mm[Hg]Brunilda Deonholz GOVERNMENT AFFAIRS DIRECTOR Work Phone: [facility] HospitalOnzyotxdiv45-76-1107 10:30-0500Heart rate74 /min Brunilda Deonholz GOVERNMENT AFFAIRS DIRECTOR Work Phone: [facility] HospitalRofphxbxlo58-10-9196 10:30-0500Respiratory rate22 /minLisa Deonholz GOVERNMENT AFFAIRS DIRECTOR Work Phone: [facility] HospitalYavtekoubs18-97-6280 10:30-3159AxW6% (BldA) [Mass fraction]95 %Brunilda Deonholz GOVERNMENT AFFAIRS DIRECTOR Work Phone: [facility] HospitalRglvwqjvaf30-12-0104 10:30-0500Systolic blood innxnred908 mm[Hg]Brunilda Deonholz GOVERNMENT AFFAIRS DIRECTOR Work Phone: [facility] HospitalEifnuqpdyb19-80-4084 09:17-0400Body mass index (BMI) [Ratio]41.76 kg/m2Lianasa Deonholz GOVERNMENT AFFAIRS DIRECTOR Work Phone: [facility] HospitalYukwnrvoto89-23-5317 09:17-0400Body temperature 97.3 [degF]Brunilda Deonholz GOVERNMENT AFFAIRS DIRECTOR Work Phone: [facility] HospitalKjglzuvvfj49-94-1584 09:17-0400Body bzbypp055.36 kgLianasa Deonholz GOVERNMENT AFFAIRS DIRECTOR Work Phone: [facility] HospitalIgbhropwen01-10-6071 09:17-0400Diastolic blood pxiqtkxe20 mm[Hg]Brunilda Deonholz GOVERNMENT AFFAIRS DIRECTOR Work Phone: [address] [address]Ynhygovmag94-96-7597 09:17-0400Heart rate79 /min Brunilda Ramseyhholz GOVERNMENT AFFAIRS DIRECTOR Work Phone: [address] [address]Wdfokhhpbr47-54-1987 09:17-9083XcP3% (BldA) [Mass fraction]94 %Brunilda Ramseyhholz GOVERNMENT AFFAIRS DIRECTOR Work Phone: [address] [address]Sapggfqqje28-43-6051 09:17-0400Systolic blood zgbbhyen422 mm[Hg]Brunilda Milton GOVERNMENT AFFAIRS DIRECTOR Work Phone: [facility] Encounters Encounter DateEncounter TypeCare ProviderFacilityStart: 07-16-2025 End: 79-55-4424rhreesngfaCeea J Aichholz GOVERNMENT AFFAIRS DIRECTOR-C Work Phone: [facility] Work Phone: Start: 07-16-2025 End: 06-70-8053Bomxjun encounter procedureBrunilda Rose GOVERNMENT AFFAIRS DIRECTOR-C-[facility]a Work Phone: Start: 34-89-6545Ypoftgx encounter procedureBrunilda Rose GOVERNMENT AFFAIRS DIRECTOR-C Work Phone: [facility] Hospitaltart: 01-23-2025 End: 59-37-9265Tmhhrreak Result EncounterGeneric External Data ProviderNOMS External Department UnsolicitedStart: 01-23-2025 End: 95-65-9897Ncshobzsl Result EncounterGeneric External Data ProviderNOMS External Department UnsolicitedStart: 12-20-2024 End: 96-01-3183Hudcet flowsMargot Rose GOVERNMENT AFFAIRS DIRECTOR Work Phone: noms CW FMStart: 12-20-2024 End: 30-22-2550Ayknmq flowsMargot Rose GOVERNMENT AFFAIRS DIRECTOR Work Phone: noms [facility] FMStart: 12-20-2024 End: 50-31-9020Dixletg encounter procedureLiana Milton GOVERNMENT AFFAIRS DIRECTOR Work Phone: noms [facility] FMComment on above:Encounter for subsequent annual [...] Cigarette nicotine dependence without complicationStart: 12-20-2024 End: 35-49-7889cktrdssatvGHIA KINZAot AvailableStart: 10-16-2024 End: 31-65-5793Wpndxkxxv Result EncounterGeneric External Data ProviderNOMS External Department UnsolicitedStart: 10-16-2024 End: 02-90-2861Gqimvlnoy Result EncounterGeneric External Data ProviderNOMS External Department UnsolicitedStart: 06-22-2024 End: 05-65-5113Eruihchfy Result EncounterLisa Chavarriating GOVERNMENT AFFAIRS DIRECTOR Work Phone: noms External Department UnsolicitedStart: 06-22-2024 End: 60-83-5871Etekqqihx Result EncounterLisa Chavarriafrankiez GOVERNMENT AFFAIRS DIRECTOR Work Phone: noms External Department UnsolicitedStart: 06-12-2024 End: 03-10-1957Bxmuxd flowsheetBrunilda Chavarriaholz GOVERNMENT AFFAIRS DIRECTOR Work Phone: noms CWM FMStart: 06-12-2024 End: 32-99-5236Ehahlq flowsheetBrunilda Chavarriaholz GOVERNMENT AFFAIRS DIRECTOR Work Phone: noms CW FMStart: 06-12-2024 End: 74-82-3326Peguzr outpatient visit 25 minutesLisa Chavarriaholz GOVERNMENT AFFAIRS DIRECTOR Work Phone: noms CWM FMComment on above:Primary hypertension (CMS/HCC) (Primary Dx); Morbid (severe) obesity due to excess calories (CMS/HCC); Body mass index (BMI) 40.0-44.9, adult (CMS/HCC); Malignant neoplasm of vagina (CMS/HCC); Gastroesophageal reflux disease without esophagitis; Lower extremity edema; Hypothyroidism, unspecified type (CMS/HCC); Tobacco user; Hyperglycemia; Polyneuropathy; Rheumatoid arthritis with positive rheumatoid factor, involving unspecified site ([facility]); Other fatigueStart: 06-12-2024 End: 22-47-4257pddijdntezWURY JUAREZZNot AvailableStart: 14-76-1693Twpbzdc encounter procedureLisa Rose GOVERNMENT AFFAIRS DIRECTOR Work Phone: [facility] HealthcareStart: 62-22-3344Cqwexdieh encounter Zohra Levi [facility] - Medical OncologyStart: 01-12-2023 End: 42-35-6867jiiywrnsqgQLR BRUNILDA AICHHOLZFacility:C7Gkpmr: 10-13-2022 End: 51-63-0117vfpylapcgsVBA BRUNILDA RAMSEYHHOLZFacility:X6Nnzdr: 07-21-2022 End: 89-20-3519aprqinlmtgELU BRUNILDA AICHHOLZFacility:I1Omwlr: 04-21-2022 End: 64-98-1246kcvwblvxugRZ DOCTOR MISCFacility:E4Hbvxn: 01-19-2022 End: 47-20-1560lhavdzzqzaTOM BRUNILDA AICHHOLZFacility:U1Cbdes: 10-21-2018 End: 60-05-4904Znhrtoo encounter procedureHAIDER [facility] Start: 04-15-2018 End: 46-33-7890Jgtbhuh encounter procedureHAIOhioHealth Southeastern [facility] Procedures DateProcedureProcedure DetailPerforming ClinicianStart: 67-95-8414YOM CBC WITH AUTO DIFFGeneric External Data ProviderStart: 63-12-9421QrxjizezpusTcaf Aichholz GOVERNMENT AFFAIRS DIRECTOR Work Phone: Start: 43-35-0281ACN CBC WITH AUTO DIFFGeneric External Data ProviderStart: 74-27-3954BLJ HEMOGLOBIN J5GJuih Milton GOVERNMENT AFFAIRS DIRECTOR Work Phone: Start: 66-21-0293HpidbjmahzqDfoz Aichholz GOVERNMENT AFFAIRS DIRECTOR Work Phone: Plan of Treatment DateCare ActivityDetailAuthorStart: 03-05-2026Medicare Annual Wellness (AWV) Medicare Annual Wellness (AWV)[facility] HealthcareStart: 71-38-8563Rycwtpqid for malignant neoplasm of breastMammogramNOMS HealthcareStart: 78-07-3376Hecqr screening for proteinDiabetes: Urine Protein ScreeningNOMS HealthcareComment on above:Postponed from 1969 (Other Medical Reasons)Start: 06-25-2025 End: 35-22-3386Rnoatbh encounter assxhzjsv88/08/2025 9:20 AM EDT Office Visit [facility] [address] [place] [address] Brunilda Rose NP [address] [place] [address] [facility] FMStart: 37-60-4841Ikpaicsby vaccinationInfluenza Vaccine (Season Ended)[facility] HealthcareStart: 47-86-9712Wapkbggxk vaccination Influenza Vaccine (#1)[facility] HealthcareComment on above:Postponed from 06/18/2024 (Patient Refused)Start: 12-20-2024 End: 93-57-9377Xaqhhiu encounter mopgkzlhe64/05/2025 10:30 AM EST Office Visit [facility] [address] [place] [address] Brunilda Rose, RHEA [address] [place] [address] Polyneuropathy (Primary Dx); Morbid (severe) obesity due [...] edema; Age-related osteoporosis without current pathological fracture ([facility]/HCC); Hypothyroidism, unspecified type ([facility]/HCC); Encounter for subsequent annual wellness visit (AWV) in Medicare patient; Chronic gout without tophus, unspecified cause, unspecified site; Hyperglycemia; Cigarette nicotine dependence without complicationStart: 02-26-2025Medicare Annual Wellness (AWV)Medicare Annual Wellness (AWV)[facility] HealthcareStart: 82-44-2896Wbknsqidi for malignant neoplasm of colonColorectal Cancer Screening N[facility]S HealthcareComment on above:Postponed from 1950 (Patient Refused) Start: 12-12-2024 End: 52-82-4815Ubsbjlf encounter atdjjdlgi57/25/2025 10:00 AM EST Office Visit [facility] [address] [place] [address] Brunilda Rose NP [address] [place] [address] [facility] FMStart: 51-02-1178Xvtbqmlg screeningDiabetes: Retinopathy ScreeningNOMS HealthcareComment on above:Postponed from 1960 (Other Medical Reasons)Start: 85-97-8178Sokha screening for proteinDiabetes: Urine Protein ScreeningNOMS HealthcareComment on above:Postponed from 1969 (Other Patient Reasons)Start: 01-18-8450Ezjtlwvrl vaccinationInfluenza Vaccine (#1)[facility] HealthcareStart: 73-68-6267Yshhttmyh for malignant neoplasm of breast MammogramNOMS HealthcareStart: 06-12-2024 End: 25-12-9694Nmjrlpm encounter ltwmhylou23/26/2024 9:20 AM EDT Office Visit [facility] [address] [place] [address] Brunilda Rose NP [address] [place] [address] Morbid (severe) obesity due to excess calories (CMS/HCC); Body mass index (BMI) 40.0-44.9, adult (CMS/HCC); Malignant neoplasm of vagina (CMS/HCC)[facility] C[facility] FMComment on above:Morbid (severe) obesity due to excess calories (CMS/HCC); Body mass index (BMI) 40.0-44.9, adult (CMS/HCC); Malignant neoplasm of vagina (CMS/HCC)Start: 98-80-9548Yrrof BMI ScreeningAdult BMI ScreeningProTrumbull Regional Medical Centertart: 20-97-9164DGVNF-19 Vaccine ( season)COVID-19 Vaccine ( season)[facility] Centertart: 55-54-8116Gqweuakzo vaccinationInfluenza VaccineCincinnati Children's Hospital [facility] SystemStart: 54-08-6430Phho Risk ScreeningFall Risk ScreeningFrye Regional Medical Centertart: 92-66-4459Ztccsacexcgzcj of varicella zoster vaccineZoster (Shingles) Vaccine (1 of 2)[facility] Centertart: 06-50-7120CYmF,Tdap and Td Vaccines (1 - Tdap)DTaP,Tdap and Td Vaccines (1 - Tdap)[facility] SystemStart: 63-80-5224Uvtda screening for proteinDiabetes: Urine Protein ScreeningCENTRAL VALLEY [facility] HealthcareStart: 94-78-4881Bsmhi BMI Follow Up PlanAdult BMI Follow Up Plan [facility] Centertart: 76-34-3215Znnlarphks ScreeningDepression Screening [facility] Centertart: 28-18-5643Fuuacqd ScreeningTobacco Screening [facility] Centertart: 57-22-6678Tpnijwda screeningDiabetes: Retinopathy ScreeningCENTRAL VALLEY MEDICAL [facility] HealthcareStart: 08-92-6373Sshgmwxeil A1c measurementDiabetes: Hemoglobin F6EBBNXSaint Luke's East HospitalStart: 1950Medicare Annual Wellness Visit Medicare Annual Wellness VisitFrye Regional Medical Centertart: 78-67-8576Zvdwtnxui for malignant [facility] Immunizations Immunization DateImmunizationNotesCare HwdxtkccZamjjijh24-64-9746Zseqbmtph, Seasonal, Quadrivalent, AdjuvantedLisa Aichholz GOVERNMENT AFFAIRS DIRECTOR Work Phone: [facility] HospitalZewiqpoltb42-41-6777QRKT-BWE-4 (COVID-19) vaccine, mRNA, spike protein, LNP, PF, india-sucrose, 30 mcg/0.3 mLLisa Aichholz GOVERNMENT AFFAIRS DIRECTOR Work Phone: [phone] [place], [place] [address]Irzcviznix09-36-7310ataungmsf virus vaccine, unspecified formulationLisa Aichholz GOVERNMENT AFFAIRS DIRECTOR Work Phone: [phone] [place], [place] [address]Ysvurxbknd55-41-1174Xfduiypit, Seasonal, Quadrivalent, AdjuvantedLisa Aichholz GOVERNMENT AFFAIRS DIRECTOR Work Phone: [phone] [place], [place] [address]Gzdgoufgmr78-32-3227CVHK-XOW-3 (COVID-19) vaccine, mRNA, spike protein, LNP, bivalent, preservative free, 30 mcg/0.3 mL dose, india-sucrose formulationLisa Aichholz GOVERNMENT AFFAIRS DIRECTOR Work Phone: [phone] [place], [place] [address]Dlmenkzxdf10-35-0727ekfhjslks virus vaccine, unspecified formulationPaula A.O. [facility]11-24-2021Pfizer Purple Cap SARS-CoV-2 VaccinationLisa Aichholz GOVERNMENT AFFAIRS DIRECTOR Work Phone: [phone] [place], [place] [address]Ynctdyyeuc39-93-2335sswrgmumxrjs polysaccharide vaccine, 23 valentLisa Aichholz GOVERNMENT AFFAIRS DIRECTOR Work Phone: [phone] [place], [place] [address]Vdrfbdiyyb20-69-8914Actbbvsyd, Seasonal, Quadrivalent, AdjuvantedLisa Aichholz GOVERNMENT AFFAIRS DIRECTOR Work Phone: [phone] [place], [place] [address]Tflklnboaz33-09-6237Wuxzph Purple Cap SARS-CoV-2 VaccinationLisa Aichholz GOVERNMENT AFFAIRS DIRECTOR Work Phone: [phone] [place], [place] [address]Lagtdwgipo47-99-8276Rwxhzp Purple Cap SARS-CoV-2 VaccinationLisa Aichholz GOVERNMENT AFFAIRS DIRECTOR Work Phone: noNortheast Missouri Rural Health NetworkUronzkicrc84-16-3073Ropvirqat, Seasonal, Quadrivalent, AdjuvantedLisa Deonholz GOVERNMENT AFFAIRS DIRECTOR Work Phone: noNortheast Missouri Rural Health NetworkHxyyfabrhc29-46-9873uatfqltozmia conjugate vaccine, 13 valentLisa Deonholz GOVERNMENT AFFAIRS DIRECTOR Work Phone: [facility] Healthcare Payers DatePayer CategoryPayerPolicy [id number] Health InsuranceMEDICAL MUTUAL Member Subscriber Plan / Payer (Effective 2021-Present) Name: Eunice Castillo Rick Relation to Subscriber: Self Name: Eunice Castillo Rick ID: Not on file Type: Not on file Address: [place] [id number] 2015Medicare [id number] [id number] [id number] 1960 [id number] 2.840.1.532292.3.579.2.593 [id number] 2.16.840.1.010414.3.57[id number] 2.16.840.1.138109.3.57[id number] 2.0.1.289620.3.57[id number] 2.16.840.1.904303.3.57[id number] 2..840.1.111077.3.57[id number] 2..840.1.863905.3.57[id number] 2.0.1.181144.3.57[id number] 2..840.1.719581.3.579.2.1259Private Health InsuranceMethodist Hospital of Southern [id number] Social History DateTypeDetailFacilityStart: 10-31-2019 End: 47-02-8244Etrliwx smoking status NHISSmokes tobacco dailyPike Community HospitalHistory of tobacco useCigarette SmokerCincinnati Children's [facility] SystemStart: 10-31-2019 End: 32-12-2531Nvdryafkkc smoked current (pack per day) - Hzxrjsev6PLKG HealthcareStart: 16-82-5924Jogtfcb use and exposureSmokeless tobacco non-user [facility] [employer] SystemStart: 11-13-2020 End: 44-80-9427Qvotxkj intakeLifetime non-drinker (finding)[facility] SystemStart: 08-16-2019 End: 30-16-5362Cdqebxv Use Disorder Identification Test - Consumption [AUDIT-C] [facility] HealthcareFrequency of Alcohol ConsumptionNeWexner Medical Center System Start: 71-05-3758Vqc Assigned At BirthNot on filePike Community HospitalWithin the last year, have you been afraid of your partner or ex-partner?NoNOMS HealthcareDo you belong to any clubs or organizations such as mandaen groups, unions, fraternal or athletic groups, or [...] got money to buy more.Never trueNOMS HealthcareStart: 76-52-0744Dllggsy Commentcaffine: 4 cups dailyNOMS HealthcareSexFemale (finding) [facility] Hospitaltart: 33-58-0265Ont Assigned At [facility] History of Present illness Narrative 12-20-2024 Note Date & BrdnGudkDilbaaaa51-82-0583 History of Present illness Narrative* IBIS RAYA [...] Any Hospitalizations in the last year:none Specialist:Rheumatology, COAL GASIFICATION TECHNICIAN HCPOA/Living Will:yes Concerns: Thyroid Problem Presents for [...] compliance problems. There is no history of CAD/WA, heart failure or PVD. Identifiable causesof hypertension [...] 12/13/2023 Heel spur, left 12/13/2023 HTN (hypertension) ([facility]) 12/13/2023 Hyperglycemia 12/13/2023 Hypothyroid ([facility]) 12/13/2023 Lower extremity edema 12/13/2023 Morbid obesity with body mass index (BMI) of 40.0 to 49.9 ([facility]) 12/13/2023 Non-compliant patient 12/13/2023 Osteoarthritis 12/13/2023 Osteoporosis ([facility]) 12/13/2023 Polyneuropathy 12/13/2023 RA (rheumatoid arthritis) ([facility]) 12/13/2023 Tobacco user 12/13/2023 Vaginal cancer ([facility]) 12/13/2023 Vitamin B12 deficiency 12/13/2023 Past Surgical [...] Visit Body mass index (BMI) 40.0-44.9, adult ([facility]) Chronic idiopathic gout of multiple sites Takes [...] gabapentin (Neurontin) 300 MG capsule HTN (hypertension) ([facility]) Please check blood pressure daily and record DASH diet Limit caffeine Take medication as directed Contact office if chest pain, pressure, dizziness, shortness of breath, swelling legs Recommend slow position changes Current meds: lisinopril, and lasix Relevant Medications lisinopril 10 MG tablet Malignant neoplasm of vagina ([facility]) Osteoporosis ([facility]) DEXA was 05/10, -3.0, Current med fosamax Lower extremity edema Lasix Limit sodium, elevate feet as much as possible Check labs yearly and prn Relevant Medications furosemide (Lasix) 40 MG tablet potassium chloride CR (Klor-Con) 10 MEQ ER tablet Morbid (severe) obesity due to excess calories ([facility]) Discussed with patient their BMI (actual, verses recommended). We have also discussed lifestyle modifications: attempts to perform physical activity as chronic conditions allow, also to monitor dietary intake: increasing protein/fruits/veggies and lowering carb intake (unless contraindicated). Limit sodas, juices, and sugary drinks. Hypothyroid ([facility]) Current med on levothyroxine Check labs yearly, prn dose changes, changes in symptoms Relevant Medications levothyroxine (Synthroid, Levoxyl) 150 MCG tablet Rheumatoid arthritis with rheumatoid factor, unspecified ([facility]) Continue with dr cardenas Current meds: humira, [...] of the risks of continued smoking: stroke, [place], all forms of cancer, lung disease, and [...] of the risks of continued smoking: stroke, [place], all forms of cancer, lung disease, and [...] Problem(s): Rheumatoid arthritis with rheumatoid factor, unspecified ([facility]) Continue with dr cardenas Current meds: humira, [...] intraepithelial neoplasia III) 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 w COAL GASIFICATION TECHNICIAN/onc * Brunilda Rose NP - 12/20/2024 6:45 [...] as well OARRS reviewed documented in this encounterNOAR Healthcare History of Present illness Narrative 06-12-2024 Note Date & WkesRbljXqajlwfu46-98-6940 History of Present illness Narrative* Brunilda Rose [...] 06/12/2024 11:21 AM EDTAssociated Problem(s): HTN (hypertension) ([facility]) Stable at this time No med dose [...] Heel spur, left 12/13/2023 HTN (hypertension) ([facility]) 12/13/2023 Hyperglycemia 12/13/2023 Hypothyroid ([facility]) 12/13/2023 Lower extremity edema 12/13/2023 Morbid obesity with body mass index (BMI) of 40.0 to 49.9 ([facility]) 12/13/2023 Non-compliant patient 12/13/2023 Osteoarthritis 12/13/2023 Osteoporosis ([facility]) 12/13/2023 Polyneuropathy 12/13/2023 RA (rheumatoid arthritis) ([facility]) 12/13/2023 Tobacco user 12/13/2023 Vaginal cancer ([facility]) 12/13/2023 Vitamin B12 deficiency 12/13/2023 Past Surgical [...] Visit Body mass index (BMI) 40.0-44.9, adult ([facility]) Gastroesophageal reflux disease without esophagitis Polyneuropathy Would like to increase gabapentin to 300mg BID Relevant Medications gabapentin (Neurontin) 300 MG capsule HTN (hypertension) ([facility]) - Primary Stable at this time No med dose change Relevant Medications lisinopril 10 MG tablet Malignant neoplasm of vagina (CMS/HCC) 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/Onc Lower extremity edema Relevant Medications potassium chloride CR (Klor-Con) 10 MEQ ER tablet furosemide (Lasix) 40 MG tablet Morbid (severe) obesity due to excess calories (CMS/HCC) Hypothyroid (CMS/HCC) Fatigue, takes thyroid meds daily as directed Relevant Medications levothyroxine (Synthroid, Levoxyl) 150 MCG tablet Tobacco user RA (rheumatoid arthritis) ([facility]) Relevant Medications folic acid (Folvite) 1 [...] Malignant neoplasm of vagina (CMS/HCC) 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/Onc documented in this encounterC[facility] Healthcare Note 10-13-2023 Note Date & RezzOgsaNspmftvl73-38-3285 Miscellaneous Notes* Telephone Encounter - Zohra Oates - 10/13/2023 2:33 PM EST CALLED TO CANCEL FOLLOW UP WITH ANTONIETTA SHE DOES NOT WANT TO RESCHEDULE AT THIS TIME documented in this encounterCincinnati Children's [facility] System Telephone encounter Note 10-13-2023 Note Date & ChxvBhtlPiohlwlz64-96-8105 Telephone encounter Note* Telephone Encounter - Zohra aOtes - 10/13/2023 2:33 PM EST CALLED TO CANCEL FOLLOW UP WITH ANTONIETTA SHE DOES NOT WANT TO RESCHEDULE AT THIS TIME [facility] Evaluation note Note Date [...] (CMS/HCC) Other fatigue documented in this encounter [facility] Healthcare Evaluation note Note Date [...] with positive rheumatoid factor, involving unspecified site ([facility]) Allergic rhinitis, unspecified seasonality, unspecified trigger Gastroesophageal reflux disease without esophagitis Esophageal reflux Primary hypertension ([facility])- Primary Unspecified essential hypertension Morbid (severe) obesity due to excess calories ([facility]) Body mass index (BMI) 40.0-44.9, adult ([facility]) Malignant neoplasm of vagina ([facility]/HCC) Malignant neoplasm of vagina Gastroesophageal reflux disease without esophagitis Esophageal reflux Lower extremity edema Edema Hypothyroidism, unspecified type ([facility]) Tobacco user Tobacco use disorder Hyperglycemia Other abnormal glucose Polyneuropathy Unspecified hereditary and idiopathic peripheral neuropathy Rheumatoid arthritis with positive rheumatoid factor, involving unspecified site ([facility]) Other fatigue Encounter for subsequent annual wellness visit (AWV) in Medicare patient- Primary Morbid (severe) obesity due to excess calories ([facility]) Body mass index (BMI) 40.0-44.9, adult ([facility]) Rheumatoid arthritis with rheumatoid factor, unspecified ([facility]) Malignant neoplasm of vagina ([facility]) Malignant neoplasm of vagina Polyneuropathy Unspecified hereditary and idiopathic peripheral neuropathy Primary hypertension ([facility]) Unspecified essential hypertension Gastroesophageal reflux disease without esophagitis Esophageal reflux Idiopathic chronic gout of multiple sites without tophus Lower extremity edema Edema Age-related osteoporosis without current pathological fracture ([facility]) Hypothyroidism, unspecified type ([facility]) Chronic gout without tophus, unspecified cause, unspecified [...] rheumatoid factor, unspecifiedacuteSeptember 2024 10:25am [facility] Work Phone: Instructions Note Date & TypeNoteFacilityInstructionsNot on filedocumented in this encounter [facility] Reason for referral (narrative) Note Date & TypeNoteFacilityReason for referral (narrative)No reason for referral information availableSelect [facility] Work Phone: Summary Purpose Family History No [...] section and content) DATE CREATED AUTHOR 10/27/2018 [facility] DATE CREATED AUTHOR AUTHOR'S ORGANIZ ATION 01/15/2023 [facility] DATE CREATED AUTHOR AUTHOR'S ORGANIZ ATION 12/22/2024 [facility] EPIC Care Teams (unrecognized sec tion and content) Team MemberRelationshipSpecialtyStart DateEnd Date Brunilda Rose, LOCK MASTER-CAPTAIN WAITER [address] [place] [address] PCP - GeneralNurse Yajzjossgpwu16/30/19Team MemberRelationshipSpecialtyStart DateEnd Date Jerry Shah MD [address] [place] [address] PCP - GeneralFamily Medicine12/06/23 Brunilda Rose NP [address] [place] [address] Nurse PractitionerP[facility]10/18/22Team MemberRelationshipSpecialtyStart DateEnd Date Jerry Shah MD [address] [place] [address] PCP - [facility]12/06/23 Brunilda Rose NP [address] [place] [address] Nurse [facility]10/18/22Te MemberRelationshipSpecialtyStart DateEnd Date Jerry Shah MD [address] [place] [address] PCP - [facility]12/06/23 Brunilda Rose NP [address] [place] [address] Nurse [facility]10/18/22Te MemberRelationshipSpecialtyStart DateEnd Date Jerry Shah MD [address] [place] [address] PCP - [facility]12/06/23 Brunilda Rose NP [address] [place] [address] Nurse [facility]10/18/22Team MemberRelationshipSpecialtyStart DateEnd Date Jerry Shah MD [address] [place] [address] PCP - [facility]12/06/23 Brunilda Rose NP [address] [place] [address] Nurse PractitionerP[facility]10/18/22Team MemberRelationshipSpecialtyStart DateEnd Date Jerry Shah MD [address] [place] [address] PCP - [facility]12/06/23 Burnilda Rose NP [address] [place] [address] Nurse PractitionerPiedmont Eastside [facility] Campus10/18/22 Team Status: Active Member Role Status [...] BE BASED ON THE PRIMARY CLINICAL RECORDS. [employer] [facility]. provides no warranty or guarantee of the accuracy or completeness of information in this document.
--- NOTE | 2025-08-15 09:00 | CM.NOTE ---
Rounds made with Dr. Glynn, discussed plan of care. Attempted to take pt off oxygen, CM back in after rounding to check oxygen level 88%RA. Pt put back on oxygen @2L NC. Encouraged pt to deep breathe and ordered PEP device.
--- NOTE | 2025-08-15 09:09 | SWNOTE1 ---
SW spoke to case management and pt was agreeable to go skilled for therapy at nursing facility. The referral has been sent to [facility] in [place]. DESI reached out to Mar at [facility], waiting to hear back.
--- NOTE | 2025-08-15 09:55 | SWNOTE1 ---
DESI received a message from Mar at [facility] and they are able to accept once pt is ready for discharge. Mar will be coming to see pt between 12-3. DESI to let pt know.
[2025-08-15] MEDS: DEXAMETHASONE SOD PHOS 4 MG/ML VIAL 6 MG IV ×2 (10:03→20:05)
[2025-08-15] MEDS: ENOXAPARIN SODIUM 40 MG/0.4 ML SYRINGE SUBQ (10:03)
[2025-08-15] MEDS: GABAPENTIN 300 MG CAPSULE PO ×2 (10:04→20:06)
[2025-08-15] MEDS: DOCUSATE SODIUM 100 MG CAPSULE PO (10:04)
[2025-08-15] MEDS: CYCLOBENZAPRINE HCL 10 MG TABLET PO ×2 (10:04→20:05)
[2025-08-15] MEDS: FOLIC ACID 1 MG TABLET PO (10:04)
[2025-08-15] MEDS: SENNOSIDES/DOCUSATE SODIUM 1 TAB TABLET PO ×2 (10:04→20:05)
[2025-08-15] MEDS: COLCHICINE 0.6 MG TABLET PO (10:05)
[2025-08-15] MEDS: AMLODIPINE BESYLATE 5 MG TABLET 2.5 MG PO ×2 (10:05→11:23)
[2025-08-15] MEDS: ALLOPURINOL 300 MG TABLET PO (10:05)
[2025-08-15] MEDS: REMOVE PATCH 1 PATCH TOPICAL (10:06)
--- NOTE | 2025-08-15 10:25 | SWNOTE1 ---
Important Message from Medicare reviewed and discussed with patient. Pt. verbalized understanding and signed the form. Original given to patient and copy placed in patient?s chart. SW did advise pt that Mar from [facility] would be stopping between 12-3 to introduce herself. Pt's did let pt know that someone in the family was not happy about her going to [facility]. Pt voiced she is aware, but she does not plan on being there very long and she is fine with it.
--- NOTE | 2025-08-15 10:34 | XR_ITS ---
The [address] [address] Patient Name: MERY CHAN MRN: [id number] date: 1950 Sex: F Assigned Patient Location: MS Current Patient Location: Accession/Order Number: [id number] Exam Date: 08/15/2025 10:52 Report Date: 08/15/2025 11:17 At the request of: BEBETO REDDY MD Procedure: XR chest 1V PORTABLE AP ERECT CHEST 1052 hours CLINICAL HISTORY: Low oxygen with shortness of breath COMPARISON: None Evaluation is slightly limited by large body habitus. The heart is at borderline prominent. There is a right pericardial fat pad. The central pulmonary vessels may be slightly prominent. Minor basilar atelectasis or scarring is seen. No other focal consolidation is noted. There is no sizable effusion or pneumothorax. XR/XR chest 1V IMPRESSION: SLIGHTLY LIMITED STUDY. BORDERLINE CARDIOMEGALY AND QUESTION OF MINOR PERIHILAR CONGESTION. CORRELATION IS RECOMMENDED. MINIMAL BASILAR SCARRING OR ATELECTASIS. Impression dictated by: Fatou Jade M.D. 08/15/2025 11:17 AM Dictation Location: [place] [address] Electronically authenticated by: [id number] Y Date: 08/15/2025 11:17
--- NOTE | 2025-08-15 10:35 | ECG_ITS ---
The [facility] Test Date: 2025-08-15 Pat Name: MERY CHAN Department: Room: [facility] Gender: Female Ham Sawyer: : 1950 Requested By: [id number] Order Number: [id number] Reading MD: CRISTO SMITH Measurements Intervals [place] Rate: 60 P: 39 VT: 153 QRS: -18 QRSD: 106 T: -29 QT: 437 QTc: 438 Interpretive Statements SINUS RHYTHM SEPTAL MYOCARDIAL INFARCTION [40+ ms Q WAVE IN V1/V2], OF INDETERMINATE AGE No previous ECG available for comparison Electronically Signed On 08-15-2025 18:40:51 EDT by CRISTO SMITH
--- NOTE | 2025-08-15 10:38 | P.PN_ITS ---
Progress Note: Subjective Subjective Interval history: Patient continues to have pain, not as intense as yesterday. Patient is trying to take her oxycodone stating that her pain is under better control. No new symptoms such as weakness or numbness, bladder or bowel retention or incontinence Exam Narrative Exam Narrative: [pt is awake and alert. oriented to place, time and person, morbidly obese mild distress secondary to low back pain. HEENT: [place] conjunctiva and NL buccal mucosa Neck: Supple, no tenderness Endocrine: No Thyromegaly. Vascular: No JVD or carotid bruit. Lymphatic: No cervical lymphadenopathy. Chest: CTA no DTP. Heart RRR, no extra sound or murmur. Abd: Soft, no tenderness, no rebound and no rigidity. Increase abd girth therefore clinically I could not exclude the possibility of intra abd mass or organomegaly. LE: No cyanosis or clubbing, no varices or edema. Tenderness in the lumbar area. Paraspinal spasm. Patient is taken a long time to change position in bed due to due to pain severity. Patient is unable to sit up on her own without assist. Neuro: A A O. Nl speech, comprehension and attention. Nl and symetrical motor and tone examination through out. Normal muscle strength in lower extremities. No hyperreflexia. No sensory loss. []] Constitutional Vital Signs, click to edit/add: Last Vital Signs Temp 98.2 F 08/15/25 07:42 Pulse 64 08/15/25 07:42 Resp 20 08/15/25 07:42 BP 158/81 H 08/15/25 07:42 Pulse Ox 88 L 08/15/25 08:43 O2 Del Method Room Air 08/15/25 08:43 O2 Flow Rate 2 08/15/25 07:42 Progress Note: Objective Labs Labs: [facility] 08/15/25 05:55 Sodium 131 L Potassium 4.7 Chloride 96 L Carbon Dioxide 31.5 BUN 27.0 H Creatinine 0.90 Glucose 142 H Calcium 8.4 L Progress Note: A&P Assessment and Plan (1) Burst fracture of lumbar vertebra: (2) Lumbar compression fracture: (3) Low back pain: Plan Acute spontaneous L2 fracture with retropulsion Severe pain limiting her ability to stand up and ambulate. Functional impairment secondary to above. I have accepted to observe her for pain management and therapy program. I requested MRI of the lumbar spine to take a better look at the lumbar area and provide further advice and recommendations. I started the patient on a combination of pain medications including Tylenol, Flexeril, Toradol as needed, Dilaudid as needed severe pain, oxycodone as needed moderate pain. MRI confirmed evidence of L2 fracture with retropulsion, 5 mm with thecal sac effacement I had discussed her case with the spine surgeon Dr. Landin. He did not recommend any surgical intervention. He recommended pain management, physical therapy and LSO brace. Brace was fitted and delivered yesterday to be applied today. Patient was recommended to go to skilled care by PT OT. Patient will be discharged once accepted. Hypoxemia This could be related to underlying COPD. Patient has been a smoker for 40 years. She continues to smoke. This also could be related to atelectasis, poor respiratory drive secondary to poor ambulation over the last 48 hours This also may be related to degree of fluid overload. Her blood pressure is elevated I requested a chest x-ray Requested D-dimer. I requested BNP. 1 dose of Lasix. Further needed diagnostic and therapeutic invention such as echocardiogram, CT of the chest will be determined based on the clinical progression and follow-up test result. Constipation. Likely opiate induced ileus. Continue aggressive stool regimen, laxative and stimulant. 1 dose of Relistor Rheumatoid arthritis Hypertension Better controlled. IV fluid infusion. Off lisinopril due to hyperkalemia Patient was started on Toprol-XL however patient became bradycardic therefore I will switch to amlodipine 2.5 mg daily. Increase amlodipine to 5 mg daily. LAUREL with hyperkalemia Hold lisinopril. IV fluid infusion Monitor kidney function. Avoid nephrotoxic drugs. LAUREL had resolved however patient continued to have hyperkalemia. Changed her diet to low potassium Avoid NSAIDs if possible Avoid heparin products if possible however patient needs pharmacological DVT prophylaxis. Resume diuretics to help with hyperkalemia. 1 dose of Lokelma and repeat potassium level in AM. Suspect vitamin D deficiency and osteoporosis Check vitamin D level. Recommend DEXA scan to be done in the outpatient setting and if positive initiate bisphosphonate treatment Vitamin D level came back at 47 Continue vitamin D supplementation Continue bisphosphonate in the outpatient setting. DVT prophylaxis Lovenox. Tobacco addiction Counseling and education were provided. Increased risk of lung cancer due to smoking for many years. Recommend yearly low-dose radiation CAT scan of the chest to screen for lung cancer to be arranged by PCP Chronic, subacute medical conditions not listed above, abnormal labs and imaging. These would need to be addressed. Could be addressed later on or in the outpatient setting by PCP collaboration with other needed outpatient providers when time and condition are appropriate. Urinary Catheter Management Urinary Catheter Management Pure Wick: Cath placed during this visit: yes Urethral indwelling: No Insertion date: 08/14/25 Insertion time: 10:40
[2025-08-15] MEDS: FUROSEMIDE 40 MG/4 ML VIAL IVP (11:22)
[2025-08-15] MEDS: METHYLNALTREXONE BROMIDE 12 MG/0.6 ML VIAL SUBQ (11:22)
[2025-08-15] MEDS: MAGNESIUM HYDROXIDE 2,400 MG/10 ML ORAL.SUSP 2400 MG PO (11:23)
[2025-08-15] MEDS: OXYCODONE HCL 5 MG TABLET PO (11:23)
[2025-08-15 11:54] LABS: NT Pro B Type Natriuretic Pept 1838.0 pg/mL (<=900.0)
--- NOTE | 2025-08-15 12:15 | CA_ITS ---
Patient Name: MERY CHAN MR#: [id number] : 1950 Exam Date: 08/15/2025 Ordering Doctor: BEBETO REDDY ECHOCARDIOGRAM REPORT PROCEDURE: CA ECHO DOPPLER COMPLETE INDICATIONS: CHF COMPARISON: None. DESCRIPTION: COMPLETE ECHOCARDIOGRAM Real-time transthoracic echocardiography with 2D, M-mode, spectral and color flow Doppler performed. QUALITY: Technical quality was limited. LEFT VENTRICLE: Normal chamber size. Moderate concentric left ventricular hypertrophy. Global left ventricular systolic function is normal. Visual estimation of left ventricular ejection fraction is 55-60%. LV EF: DIASTOLIC: Grade I diastolic dysfunction. ATRIAL SEPTUM: LEFT ATRIUM: Mild dilatation. RIGHT ATRIUM: Normal chamber size. RIGHT VENTRICLE: Normal chamber size. Normal right ventricular systolic function. TRICUSPID VALVE: Normal mobility and thickness. No stenosis with trivial regurgitation. No evidence of pulmonary hypertension.RVSP 22mmHg MITRAL VALVE: Normal mobility and thickness. No evidence of mitral valve stenosis. Moderate mitral annular calcification. Trivial mitral regurgitation. AORTIC VALVE: Normal trileaflet appearance. Mildly calcified aortic valve. Normal leaflet mobility. No evidence of aortic valve stenosis. No aortic regurgitation. AORTIC ROOT: Normal diameter and appearance. PULMONIC VALVE: Normal thickness and mobility. No stenosis. No regurgitation. PERICARDIUM: Trivial pericardial effusion. IVC: Collapes with inspirations. Normal size. PLEURA: CONCLUSION: 1. Normal chamber size. Moderate concentric left ventricular hypertrophy. 2. Global left ventricular systolic function is normal. Visual estimation of left ventricular ejection fraction is 55-60%. 3. Grade I diastolic dysfunction. 4. LEFT ATRIUM: Mild dilatation. Adult Echocardiography Procedure Report Left Ventricle LVEDD (3.7 - 5.6 cm): 4.94 cm LVESD (2.2 - 4.0 cm): 3.65 cm LVIVS thickness (0.6 - 1.2 cm): 1.32 cm LVPW thickness (0.5 - 1.0 cm): 1.31 cm e': 0.07 m/s E - e': 9.63 LVOT Max Gradient: 3.13 mm[Hg] LVOT Area (cm2): 0.89 m/s Peak Velocity (LVOT): 0.89 m/s Mean Velocity (LVOT): 0.54 m/s LVOT Diameter 1.92 cm Left Atrium LA Volume Index (2D A2C): 42.97 ml/m2 Left Atrium Systolic Dimension: 4.94 cm Mitral Valve MV E to A Ratio: 0.83 Mitral Valve A-Wave Peak Velocity: 0.79 m/s Mitral Valve E-Wave Peak Velocity: 0.65 m/s Right Ventricle RV Internal Diastolic Dimension: 4.10 cm Aorta AO Root Diam: 3.16 cm Ascending Ao Diam: 3.00 cm Aortic Valve AoV Area (Peak Uriel): 1.89 cm2, 1.89 cm2, 226.92 cm2, 226.92 cm2 AoV Area (VTI): 2.44 cm2, 2.44 cm2 Peak Velocity(Antegrade Flow): 1.36 m/s, 0.01 m/s Peak Gradient(Antegrade Flow): 0.00 mm[Hg], 7.38 mm[Hg] Mean Velocity(Antegrade Flow): 0.83 m/s Mean Gradient(Antegrade Flow): 3.21 mm[Hg] Velocity Time Integral: 23.43 cm Tricuspid Valve Peak Velocity (Regurgitant Flow): 1.71 m/s, 2.17 m/s, 2.09 m/s Pulmonic Valve Mean Gradient: 2.69 mm[Hg], 2.44 mm[Hg] Mean Velocity: 0.75 m/s, 0.72 m/s Peak Velocity: 1.13 m/s Peak Gradient: 5.31 mm[Hg], 4.96 mm[Hg] Right Atrium Right Atrium Systolic Pressure: 43.26 ml, 43.26 ml Dictated by: Sarina Gomez MD on 08/15/2025 at 18:15 Approved by: Sarina Gomez MD on 08/15/2025 at 18:18
--- NOTE | 2025-08-15 12:56 | PC.NURSE ---
Cathi in CT notified to hold CT for now.
--- NOTE | 2025-08-15 12:59 | SWNOTE1 ---
[facility] faxed OT note, physician note, labs, vitals, inpt order from 08/14, and nursing notes to [facility].
[2025-08-16] VITALS (11 sets, daily range): BP systolic 148–170; BP diastolic 70–80; PULSE 54–78; TEMP 36.2–37.3; O2SAT 92–96
[2025-08-16] MEDS: ALENDRONATE SODIUM 70 MG TABLET PO (04:40)
[2025-08-16 06:00] LABS: Anion Gap 10.8; Blood Urea Nitrogen 20.0 mg/dL (7.0-18.0); Calcium 8.6 mg/dL (8.5-10.1); Carbon Dioxide 31.8 mmol/L (21.0-32.0); Chloride 97 mmol/L (98-107); Estimated GFR (African America >60 (>=60 mL/min/1.73m^2); Estimated GFR (Non-African Ame >60 (>=60 mL/min/1.73m^2); Glucose 147 mg/dL (74-106); Potassium 4.6 mmol/L (3.5-5.1); Sodium 135 mmol/L (136-145); Thyroid Stimulating Hormone 1.295 uIU/mL (0.358-3.740)
[2025-08-16] MEDS: PANTOPRAZOLE SODIUM 40 MG TABLET.DR PO (06:06)
[2025-08-16] MEDS: ACETAMINOPHEN 500 MG TABLET 1000 MG PO ×3 (06:06→21:00)
[2025-08-16] MEDS: LEVOTHYROXINE SODIUM 75 MCG TABLET 150 MCG PO (06:06)
--- NOTE | 2025-08-16 08:35 | CM.NOTE ---
Rounds made with Dr. Glynn, discussed with pt plan of care. Pt on RA this AM. Discussed with pt need for CTA to r/o PE. Pt verbalizes understanding and discusses her reaction to contrast. Dr. Glynn will premedicate pt prior to scan. Pt verbalizes understanding. RN updated.
--- NOTE | 2025-08-16 09:03 | PM.PN ---
Progress Note: Subjective Subjective Interval history: Patient is feeling better. Less pain in her back. Patient also reported better in terms of her breathing. She was taken off oxygen. Saturation is 93% on room air. Exam Narrative Exam Narrative: [pt is awake and alert. oriented to place, time and person, morbidly obese mild distress secondary to low back pain. HEENT: [place] conjunctiva and NL buccal mucosa Neck: Supple, no tenderness Endocrine: No Thyromegaly. Vascular: No JVD or carotid bruit. Lymphatic: No cervical lymphadenopathy. Chest: CTA no DTP. Heart RRR, no extra sound or murmur. Abd: Soft, no tenderness, no rebound and no rigidity. Increase abd girth therefore clinically I could not exclude the possibility of intra abd mass or organomegaly. LE: No cyanosis or clubbing, no varices. Trace pitting edema Tenderness in the lumbar area. Paraspinal spasm. Patient is taken a long time to change position in bed due to due to pain severity. Patient is unable to sit up on her own without assist. Neuro: A A O. Nl speech, comprehension and attention. Nl and symetrical motor and tone examination through out. Normal muscle strength in lower extremities. No hyperreflexia. No sensory loss. []] Constitutional Vital Signs, click to edit/add: Last Vital Signs Temp 97.8 F 08/16/25 08:00 Pulse 54 L 08/16/25 08:13 Resp 18 08/16/25 08:13 BP 166/80 H 08/16/25 08:00 Pulse Ox 93 L 08/16/25 08:35 O2 Del Method Room Air 08/16/25 08:35 O2 Flow Rate 2 08/16/25 00:00 Progress Note: Objective Labs Labs: [facility] 08/16/25 05:17 Sodium 135 L Potassium 4.6 Chloride 97 L Carbon Dioxide 31.8 BUN 20.0 H Creatinine 0.72 Glucose 147 H Calcium 8.6 Progress Note: A&P Assessment and Plan (1) Burst fracture of lumbar vertebra: (2) Lumbar compression fracture: (3) Low back pain: Plan Acute spontaneous L2 fracture with retropulsion Severe pain limiting her ability to stand up and ambulate. Functional impairment secondary to above. I have accepted to observe her for pain management and therapy program. I requested MRI of the lumbar spine to take a better look at the lumbar area and provide further advice and recommendations. I started the patient on a combination of pain medications including Tylenol, Flexeril, Toradol as needed, Dilaudid as needed severe pain, oxycodone as needed moderate pain. MRI confirmed evidence of L2 fracture with retropulsion, 5 mm with thecal sac effacement I had discussed her case with the spine surgeon Dr. Landin. He did not recommend any surgical intervention. He recommended pain management, physical therapy and LSO brace. Brace was fitted and delivered yesterday to be applied today. Patient was recommended to go to skilled care by PT OT. Patient will be discharged once accepted. Hypoxemia This could be related to underlying COPD. Patient has been a smoker for 40 years. She continues to smoke. This also could be related to atelectasis, poor respiratory drive secondary to poor ambulation over the last 48 hours This also may be related to degree of fluid overload. Her blood pressure is elevated I requested a chest x-ray. Chest x-ray showed vascular congestion. Requested D-dimer. D-dimer is positive. I requested BNP. BNP is elevated. 1 dose of Lasix. Patient responded to diuresis. She is off oxygen. Saturation 93% Given the highly positive D-dimer and hypoxemia as well as sedentary lifestyle, the patient is at reasonable risk having a PE. Requested CT of the chest. Patient reported that last time she had the contrast she had the swelling on the side of the contrast infusion. No systemic reaction. No rash or itching. No sore throat or swelling of the lips or throat. No angioedema or anaphylactic reaction. Given the risk/benefit ratio I would proceed with CTA of the chest with the premedication with Decadron and Benadryl. Further needed diagnostic and therapeutic invention such as echocardiogram, CT of the chest will be determined based on the clinical progression and follow-up test result. Constipation. Likely opiate induced ileus. Continue aggressive stool regimen, laxative and stimulant. 1 dose of Relistor Rheumatoid arthritis Hypertension Better controlled. IV fluid infusion. Off lisinopril due to hyperkalemia Patient was started on Toprol-XL however patient became bradycardic therefore I will switch to amlodipine 2.5 mg daily. Increase amlodipine to 5 mg daily. Increased to 7.5 LAUREL with hyperkalemia Hold lisinopril. IV fluid infusion Monitor kidney function. Avoid nephrotoxic drugs. LAUREL had resolved however patient continued to have hyperkalemia. Changed her diet to low potassium Avoid NSAIDs if possible Avoid heparin products if possible however patient needs pharmacological DVT prophylaxis. Resume diuretics to help with hyperkalemia. 1 dose of Lokelma and repeat potassium level in AM. Suspect vitamin D deficiency and osteoporosis Check vitamin D level. Recommend DEXA scan to be done in the outpatient setting and if positive initiate bisphosphonate treatment Vitamin D level came back at 47 Continue vitamin D supplementation Continue bisphosphonate in the outpatient setting. DVT prophylaxis Lovenox. Tobacco addiction Counseling and education were provided. Increased risk of lung cancer due to smoking for many years. Recommend yearly low-dose radiation CAT scan of the chest to screen for lung cancer to be arranged by PCP Chronic, subacute medical conditions not listed above, abnormal labs and imaging. These would need to be addressed. Could be addressed later on or in the outpatient setting by PCP collaboration with other needed outpatient providers when time and condition are appropriate. Urinary Catheter Management Urinary Catheter Management Pure Wick: Cath placed during this visit: yes Urethral indwelling: No Insertion date: 08/15/25 Insertion time: 22:51
[2025-08-16] MEDS: DEXAMETHASONE SOD PHOS 10 MG/ML VIAL IV (09:57)
[2025-08-16] MEDS: DIPHENHYDRAMINE HCL 50 MG/ML VIAL 25 MG IVP (09:58)
[2025-08-16] MEDS: SENNOSIDES/DOCUSATE SODIUM 1 TAB TABLET PO ×2 (10:02→21:00)
[2025-08-16] MEDS: ALLOPURINOL 300 MG TABLET PO (10:02)
[2025-08-16] MEDS: CYCLOBENZAPRINE HCL 10 MG TABLET PO ×2 (10:02→21:00)
[2025-08-16] MEDS: COLCHICINE 0.6 MG TABLET PO (10:02)
[2025-08-16] MEDS: GABAPENTIN 300 MG CAPSULE PO ×2 (10:02→21:00)
[2025-08-16] MEDS: FOLIC ACID 1 MG TABLET PO (10:03)
[2025-08-16] MEDS: AMLODIPINE BESYLATE 5 MG TABLET PO (10:03)
[2025-08-16] MEDS: DOCUSATE SODIUM 100 MG CAPSULE PO (10:03)
[2025-08-16] MEDS: ENOXAPARIN SODIUM 40 MG/0.4 ML SYRINGE SUBQ (10:04)
--- NOTE | 2025-08-16 11:06 | OT.DAILY ---
Occupational Therapy Daily Note OT Inpatient Daily Visit Note Start: 08/13/25 13:58 Freq: Status: Active Protocol: Document 08/16/25 10:53 [id number] (Rec: 08/16/25 11:06 [id number]) OT Visit Details Time In/Time Out Time In 09:43 Time Out 09:53 Pain In Pain Level 3 Pain Out Pain Level 3 OT Treatment Plan Subjective Subjective Pt awake and alert, sitting in chair. Reports minimal shortness of breath and persistent cough. Minimal phlegm production. Objective Objective Pt sitting in recliner chair reports lumbar pain 3/10. Pt refuses to complete self-care tasks in bathroom. With set-up of supplies Pt completed oral hygiene. Provided with additional self-care supplies Pt refuses to comb hair or apply anti-perspirant. Denies the need for additional self-care tasks at this time. Radiology staff beginning imaging after oral hygiene. Reports pain 3/10 following tasks. Assessment Assessment Pt complains of persistent lumbar pain and difficulty with functional mobility. Continue OT POC. Short Term Goals STG 1 Patient will be able to transfer supine to sitting edge of bed with min assist or better. Min assist with pain increase to 8/10. STG 2 Patient will be able to sit edge of bed and complete stephanie of back brace with min assist or better. Max assist while sitting edge of bed. STG 3 Patient will be able to ambulate to bathroom, and complete grooming/oral care with min assist or better from WW. Ambulated 12' bed to bathroom using WW with CGA. CGA to complete oral care and face wash at sink. OT Night Clerk Auditor Timed Codes Self-Fpc 10 Management minutes ( minutes) Self-Fpc 1 Management units
--- NOTE | 2025-08-16 11:10 | CT_ITS ---
[address] [address] Patient Name: MERY CHAN MRN: [id number] date: 1950 Sex: F Assigned Patient Location: Current Patient Location: Accession/Order Number: [id number] Exam Date: 08/16/2025 11:00 Report Date: 08/16/2025 13:19 At the request of: BEBETO REDDY MD Procedure: CT angio chest CT PULMONARY ANGIOGRAM WITH CONTRAST CLINICAL HISTORY: Hypoxemia, + dimer r/o PE COMPARISON: None TECHNIQUE: Spiral images were obtained through the chest following intravenous administration of 100 mL of Omnipaque 350. Images were reviewed using both narrow and wide window settings. Sagittal, coronal and 3 D volume-rendered reconstructions were performed and reviewed. This CT exam was performed using one or more following dose reduction techniques: Automated exposure control, adjustment of the mA and/or kV according to patient size, or use of iterative reconstruction technique. FINDINGS: The heart is top normal in size. There is no pericardial effusion. Coronary artery disease is noted. No aortic aneurysm or dissection is seen. There is atherosclerotic plaque at the aortic arch, descending aorta and proximal great vessels. There is adequate opacification of the pulmonary arteries. No emboli are identified. Small scattered nonpathologic mediastinal lymph nodes are seen. There is calcification at the superior pole of the right thyroid lobe. The bony structures are osteopenic. There are tiny endplate spurs. Atelectasis is present at the posterior costophrenic angles, greater on the left where a trace amount of pleural fluid is visualized. Additional scarring and/or atelectasis is seen bilaterally. Subpleural lines are present on the right. No pneumothorax is noted. A tiny incidental 3 mm nodule is visualized within the right middle lobe near the distal major fissure. Limited cuts through the upper abdomen show no contributory abnormality. CT/CT angio chest IMPRESSION: NO CT EVIDENCE OF PULMONARY EMBOLISM. ATELECTASIS, POSSIBLE SCARRING AND MINIMAL LEFT PLEURAL FLUID. INCIDENTAL TINY RIGHT MIDDLE LOBE NODULE. Impression dictated by: Fatou Jade M.D. 08/16/2025 1:19 PM Dictation Location: [place] [address] Electronically authenticated by: [id number] Y Date: 08/16/2025 13:19
[2025-08-16] MEDS: AMLODIPINE BESYLATE 5 MG TABLET 2.5 MG PO (13:35)
[2025-08-16] MEDS: FUROSEMIDE 40 MG/4 ML VIAL IVP (17:11)
[2025-08-17 04:00] VITALS: BP 164/80; PULSE 56; TEMP 36.4; O2SAT 92
[2025-08-17] MEDS: PANTOPRAZOLE SODIUM 40 MG TABLET.DR PO (06:15)
[2025-08-17] MEDS: LEVOTHYROXINE SODIUM 75 MCG TABLET 150 MCG PO (06:15)
[2025-08-17] MEDS: ACETAMINOPHEN 500 MG TABLET 1000 MG PO (06:15)
[2025-08-17 08:29] LABS: Anion Gap 10.0; Blood Urea Nitrogen 18.0 mg/dL (7.0-18.0); Calcium 8.9 mg/dL (8.5-10.1); Carbon Dioxide 33.1 mmol/L (21.0-32.0); Chloride 97 mmol/L (98-107); Estimated GFR (African America >60 (>=60 mL/min/1.73m^2); Estimated GFR (Non-African Ame >60 (>=60 mL/min/1.73m^2); Glucose 102 mg/dL (74-106); Potassium 4.1 mmol/L (3.5-5.1); Sodium 136 mmol/L (136-145)
[2025-08-17 09:00] VITALS: BP 160/60; PULSE 72; TEMP 36.7; O2SAT 95
[2025-08-17 09:19] VITALS: O2SAT 94
[2025-08-17] MEDS: OXYCODONE HCL 5 MG TABLET PO (09:23)
[2025-08-17] MEDS: ALLOPURINOL 300 MG TABLET PO (09:23)
[2025-08-17] MEDS: TORSEMIDE 20 MG TABLET PO (09:24)
[2025-08-17] MEDS: ENOXAPARIN SODIUM 40 MG/0.4 ML SYRINGE SUBQ (09:24)
[2025-08-17] MEDS: DOCUSATE SODIUM 100 MG CAPSULE PO (09:24)
[2025-08-17] MEDS: COLCHICINE 0.6 MG TABLET PO (09:24)
[2025-08-17] MEDS: CYCLOBENZAPRINE HCL 10 MG TABLET PO (09:24)
[2025-08-17] MEDS: AMLODIPINE BESYLATE 5 MG TABLET PO (09:24)
[2025-08-17] MEDS: SENNOSIDES/DOCUSATE SODIUM 1 TAB TABLET PO (09:24)
[2025-08-17] MEDS: LISINOPRIL 10 MG TABLET PO (09:24)
[2025-08-17] MEDS: GABAPENTIN 300 MG CAPSULE PO (09:24)
[2025-08-17] MEDS: FOLIC ACID 1 MG TABLET PO (09:24)
[2025-08-17] MEDS: REMOVE PATCH 1 PATCH TOPICAL (09:25)
--- NOTE | 2025-08-17 10:09 | CM.NOTE ---
Rounds made with Dr. Glynn, pt will discharge to skilled facility today. Pt has f/u scheduled with [facility] on discharge paperwork. CRF completed for skilled care.
--- NOTE | 2025-08-17 10:28 | SWNOTE1 ---
[facility] stopped in to speak with pt and about transport. OT was in room as well. Pt was unsure of going by wheelchair or stretcher. Pt's final decision is to go by stretcher. SW to set up transport once dc orders are in. [facility] did let [facility] [place] know that pt is ready for discharge today.
--- NOTE | 2025-08-17 11:32 | P.DS_ITS ---
DS: Providers Provider Date of admission: 08/14/25 14:31 Primary care physician: Non-Staff Physician, Consults: 08/13/25 07:07 Occupational Therapy Eval and Treat Routine Reason for consultation: Weakness Physical Therapy Eval and Treat Routine Reason for consultation: Weakness DS: Diagnosis Discharge Diagnosis (1) Burst fracture of lumbar vertebra: (2) Lumbar compression fracture: (3) Low back pain: Plan As listed above, below and others that are not listed DS: Summary Hospital Course Hospital Course: Patient came in with lower back pain. Acute spontaneous L2 fracture with retropulsion Severe pain limiting her ability to stand up and ambulate. Functional impairment secondary to above. I have accepted to observe her for pain management and therapy program. I requested MRI of the lumbar spine to take a better look at the lumbar area and provide further advice and recommendations. I started the patient on a combination of pain medications including Tylenol, Flexeril, Toradol as needed, Dilaudid as needed severe pain, oxycodone as needed moderate pain. MRI confirmed evidence of L2 fracture with retropulsion, 5 mm with thecal sac effacement I had discussed her case with the spine surgeon Dr. Landin. He did not recommend any surgical intervention. He recommended pain management, physical therapy and LSO brace. Brace was fitted and delivered. Patient is using the brace every time she is out of bed. Patient was recommended to go to skilled care by PT OT. Patient will be discharged to skilled facility today. We will arrange for patient to follow-up with Dr. Parham Hypoxemia Diastolic heart failure Underlying COPD This could be related to underlying COPD. Patient has been a smoker for 40 years. She continues to smoke. This also could be related to atelectasis, poor respiratory drive secondary to poor ambulation over the last 48 hours This also may be related to degree of fluid overload. Her blood pressure is elevated I requested a chest x-ray. Chest x-ray showed vascular congestion. Requested D-dimer. D-dimer is positive. I requested BNP. BNP is elevated. 1 dose of Lasix. Patient responded to diuresis. She is off oxygen. Saturation 93% Given the highly positive D-dimer and hypoxemia as well as sedentary lifestyle, the patient is at reasonable risk having a PE. Requested CT of the chest. CT chest does not show PE. Venous ultrasound of the leg does not show DVT. Echocardiogram showed normal ejection fraction but positive for diastolic dysfunction. Continue diuretics. Continue blood pressure management. Constipation. Likely opiate induced ileus. Continue aggressive stool regimen, laxative and stimulant. 1 dose of Relistor Resolved. Rheumatoid arthritis Hypertension Better controlled. IV fluid infusion. Off lisinopril due to hyperkalemia Patient was started on Toprol-XL however patient became bradycardic therefore I will switch to amlodipine 2.5 mg daily. Increase amlodipine to 5 mg daily. Add lisinopril 10 mg daily. Discontinue home potassium due to borderline hyperkalemia on presentation. BMP every Wednesday and at the nursing facility. LAUREL with hyperkalemia Resolved. Suspect vitamin D deficiency and osteoporosis Check vitamin D level. Recommend DEXA scan to be done in the outpatient setting and if positive initiate bisphosphonate treatment Vitamin D level came back at 47 Continue vitamin D supplementation Continue bisphosphonate in the outpatient setting. DVT prophylaxis Lovenox. Tobacco addiction Counseling and education were provided. Tiny lung nodule seen on CT. Increased risk of lung cancer due to smoking for many years. Recommend yearly low-dose radiation CAT scan of the chest to screen for lung cancer to be arranged by PCP Chronic, subacute medical conditions not listed above, abnormal labs and imaging. These would need to be addressed. Could be addressed later on or in the outpatient setting by PCP collaboration with other needed outpatient providers when time and condition are appropriate. Patient has multiple complex medical issues as listed above and others that are not listed. All appear to be stable. I do not have any clear or strong clinical justification to extend inpatient hospitalization. Patient however will require close and frequent monitoring as well as additional work-up, investigation and therapeutic intervention that could take place from this point on post discharge. That is to prevent relapse, decompensation, rehospitalization and other medical implications.. I instructed patient to ask her primary care doctor to obtain [facility] record entirely to address abnormalities seen on labs and imaging that I have and have not addressed during this hospitalization, follow-up on pending blood work, imaging and pathology is if available and to follow-up on needed medical care in the outpatient setting. Time Spent with Patient Time attestation: Total time spent providing and/or coordinating discharge services: Exam Constitutional Vital Signs, click to edit/add: Last Vital Signs Temp 98.0 F 08/17/25 09:00 Pulse 72 08/17/25 09:00 Resp 18 08/17/25 09:00 BP 160/60 H 08/17/25 09:00 Pulse Ox 94 L 08/17/25 09:19 O2 Del Method Room Air 08/17/25 09:19 O2 Flow Rate 2 08/16/25 00:00 DS: Data Data Completed and Pending Labs on day of discharge: Labs from last 24 hours 08/17/25 08:05 Sodium 136 Potassium 4.1 Chloride 97 L Carbon Dioxide 33.1 H Anion Gap 10.0 BUN 18.0 Creatinine 0.80 Est GFR ( Amer) >60 Est GFR (Non-Af Amer) >60 BUN/Creatinine Ratio 22.5 Glucose 102 Calcium 8.9 Discharge Plan Discharge Disposition: Xfer SNF Discharge Medications: New cyclobenzaprine 10 mg Tablet 5 mg PO TID Qty: 0 0RF nicotine 14 mg/24 hr Patch 24 Hour 14 mg transdermal QD Qty: 0 0RF polyethylene glycol 3350 17 gram Powder In Packet 17 g PO QD PRN (Reason: Constipation) Qty: 0 0RF sennosides-docusate sodium 8.6-50 mg Tablet 1 tab PO BID Qty: 0 0RF amlodipine 5 mg Tablet 5 mg PO QD Qty: 0 0RF oxycodone 5 mg Tablet 5 mg PO Q4H PRN (Reason: Pain) Qty: 15 0RF Continued alendronate 70 mg tablet 70 mg PO QWEEK Patient Comments: Shadi allopurinol 300 mg tablet 300 mg PO DAILY colchicine 0.6 mg tablet 0.6 mg PO DAILY folic acid 1 mg tablet 1 mg PO DAILY gabapentin 300 mg capsule 300 mg PO BID furosemide 40 mg tablet 40 mg PO DAILY levothyroxine 150 mcg tablet 150 mcg PO DAILY lisinopril 10 mg tablet 10 mg PO DAILY methotrexate sodium 2.5 mg tablet 25 mg PO QWEEK Patient Comments: Sat prednisone 5 mg tablet 5 mg PO DAILY omeprazole 20 mg capsule,delayed release(DR/EC) 20 mg PO DAILY docusate sodium [Colace] 100 mg capsule 100 mg PO DAILY Discontinued potassium chloride 10 mEq tablet extended release 20 meq PO BID oxycodone-acetaminophen 5-325 mg tablet 1 tab PO Q4H PRN (Reason: pain) orphenadrine citrate 100 mg tablet extended release 100 mg PO BID ondansetron HCl 4 mg tablet 4 mg PO Q6H PRN (Reason: nausea and vomiting) ibuprofen 600 mg tablet 600 mg PO Q6H PRN (Reason: pain) All Day Allergy (cetirizine) 10 mg capsule 10 mg PO DAILY Print Language: Haitian Activity Restrictions/Additional Instructions: I may not have addressed or treated all of your medical illnesses or the [facility] blood work or imaging studies during this hospitalization. Please ask your primary care provider to obtain [facility] records entirely to follow up on all of the abnormal physical, laboratory, and imaging findings that I have not addressed. Please return back to the emergency room or seek medical attention if your symptoms worsen or return. You have a small tiny nodule in your lung seen on a CAT scan. I would recommend that your primary care doctor arrange to have repeat CAT scan in 1 year to monitor the lung nodule. Discharging you from [facility] does not mean that your medical care ends here and now. You may still need additional monitoring, work up, investigation, and treatment plan to be handled from this point on by out patient providers including your primary care provider and specialists. For [facility] providers Fall precaution Patient is to wear brace every time she is out of breath BMP every Wednesday and CBC every Wednesday For any medication question, please contact your retail pharmacist or your primary care provider. Thank you. Forms: Portal Instructions Follow Up Appointments: Neurosurgery Dr Dale Aug 23 11 AM.
--- NOTE | 2025-08-17 11:52 | SWNOTE1 ---
DESI faxed dc med rec, dc summary, PT/OT from today, and vitals to [facility] at [facility].
[2025-08-17 12:00] VITALS: BP 143/69; PULSE 60; TEMP 36.6; O2SAT 93
--- NOTE | 2025-08-17 12:05 | SWNOTE1 ---
[facility] set up [facility] for 1:15pm. DESI notified the pt's nurse, [facility] at [facility], and pt/pt's . [facility] completed [facility] paperwork and took the packet to the floor. DESI provided nurse with CRF. DESI completed HENS 7000 online. Pt is going skilled to [facility].
--- NOTE | 2025-08-17 19:08 | NUTR.NU ---
PO intakes of regular diet are good, average 89%, and meet pt?s estimated nutrient requirements. No dietary concerns at this time.
== END 2025-08-17 14:18 | DRG 552 ==
LOC: ER 06:18 → MS 08-14 07:53
PROVIDERS: Admitting Provider Internal Medicine; Emergency Provider Internal Medicine; Visit Provider Internal Medicine
DX: S32.021A Stable burst fracture of second lumbar vertebra, initial encounter for closed fracture (principal); N17.9 Acute kidney failure, unspecified; I50.30 Unspecified diastolic (congestive) heart failure; E05.90 Thyrotoxicosis, unspecified without thyrotoxic crisis or storm; M06.9 Rheumatoid arthritis, unspecified; Z85.44 Personal history of malignant neoplasm of other female genital organs; Z90.711 Acquired absence of uterus with remaining cervical stump; F17.200 Nicotine dependence, unspecified, uncomplicated; J44.9 Chronic obstructive pulmonary disease, unspecified; Z79.899 Other long term (current) drug therapy; Z79.890 Hormone replacement therapy; E66.01 Morbid (severe) obesity due to excess calories; M54.50 Low back pain, unspecified; E87.5 Hyperkalemia; R09.02 Hypoxemia; K59.00 Constipation, unspecified; R79.89 Other specified abnormal findings of blood chemistry; T40.2X5A Adverse effect of other opioids, initial encounter; R91.1 Solitary pulmonary nodule; I11.0 Hypertensive heart disease with heart failure; Z68.39 Body mass index [BMI] 39.0-39.9, adult
CPT/HCPCS: 36415; 71045; 71275; 72131; 72148; 76376; 80048; 80053; 82306; 83735; 83880; 84443; 85025; 85378; 85652; 86140; 93005; 93306; 93970; 94667; 94668; 94761; 96365; 96375; 96376; 97110; 97161; 97165; 97530; 97535; 99285; G0378; J1100; J1171; J1200; J1650; J1885; J1938; J2212; J2919; J3360; J3475; L0637; Q9967

== ENCOUNTER 2025-09-20 09:46 | Outpatient (OUT) | payer MEDICARE, OTHER, SELFPAY ==
--- OUTSIDE RECORDS SUMMARY | 2025-09-20 09:50 | XMS_ITS | Clinical Summary ---
Author Organization [facility] Address [address] [place], [place] [address] Care Team Providers Care Medical Customer Service Representative Name Role Phone Katherine Slater MD, Armani Hamilton Unavailable [phone] Brunilda Rose CNP Primary Care Provider [phone] Allergies Active AllergyReactionsCriticalityNoted SggsNjmhekjqCrojfdfopcpHmpb77/02/2016 Medications MedicationSigDispense QuantityRefillsLast FilledStart DateEnd DateStatus methotrexate [...] once daily.03/30/2017Active Active Problems ProblemNoted DateDiagnosed DateMorbid tvpaerm1910/06/2016Other specified rheumatoid arthritis, multiple sites10/06/2016Chronic idiopathic gout of multiple sites10/06/2016Gastroesophageal reflux disease without esophagitis 10/06/20164447Fnyadi26/20/2016 Overview (10/06/2016): 45+ pack years Family History RelationStatusCommentsFatherDeceasedMotherDeceased Social History Tobacco UseTypesPacks/DayYears UsedDateSmoking Tobacco: Every UaaSgyuppzrky033 Smokeless Tobacco: Never Tobacco Cessation:Ready to Q uit: No; Counseling Given: Yes Alcohol UseStandard Drinks/WeekCommentsNo0 (1 standard drink = 0.6 oz pure alcohol)Area Deprivation IndexAnswerDate RecordedNational Score (1-100), lower number is lower riskNot on file2020State Score (1-10), lower number is lower riskNot on file2020Data from: https://www.neighborhoodatlas.medicine.[facility].edu/. Last address used for calculationNot on file2020CommentsNoSex and Gender Information ValueDate RecordedSex Assigned at BirthNot on fileLegal WuoOchpcp83/01/2016 4:57 PM ESTGender IdentityNot on fileSexual OrientationNot on file Last Filed Vital Signs Vital SignReadingTime TakenCommentsBlood Mgmmblun513/8210/21/2018 10:45 AM EST Bawpr247110/21/2018 10:45 AM WLSBcykmmaweyb61.7 ??C (98 ??F)10/21/2018 10:45 AM ESTRespiratory Qere553210/21/2018 10:45 AM ESTOxygen Vuuccqufjv36%10/21/2018 10:45 AM ESTInhaled Oxygen Concentration--Jvxpnx443.9 kg (268 lb 12.8 oz)10/21/2018 10:45 AM AJTAmwksx786.1 cm (5' 5 )10/21/2018 10:45 AM ESTBody Mass Index44.73 10/21/2018 10:45 AM EST Plan of Treatment Health MaintenanceDue DateLast DoneCommentsAnxiety Ltbtzjgls23/09/1968Depression Ockpnszrl24/09/1968Hepatitis C Boyhgsfgz16/09/1968DTaP,Tdap,Td Vaccine (1 - Tdap)1969Mammogram Obnpkcuhl09/09/1990CT Ceovygbyudzi78/09/1995Cologuard (FIT-DNA)09/25/19950440Biozdmulcqf99/09/1995Colorectal Cancer Gtegmjqxr58/09/1995 Fecal Occult Blood1995Lipid Usvcwmqoc61/09/4670Lwvlewybvqlnb22/09/1995 Pneumococcal Vaccine: 50+ (1 of 1 - PCV)2000Shingrix Vaccine (1 of 2) 2000Bone Density [place]39/09/2015Diabetes Dhrtrqmku64 Advance Directive Vmvzsgpcso35/01/2025ovid-19 Vaccine (1 - 2024- season) 2025Influenza Vaccine (#1)2025RSV Vaccine (1 - 1-dose 75+ series) 2025 Procedures Procedure NamePriorityDate/TimeAssociated DiagnosisCommentsBASIC METABOLIC PANEL (EU,FV,HL,BRIA,MM,SP)ASAP10/30/2016 7:24 AM EST from Last 3 Months or Most Recently Relevant to Health Maintenance Results * (ABNORMAL) BASIC METABOLIC PANEL (AV,EU,FV,HL,BRIA,MM,SP) (10/30/2016 7:24 AM EST)ComponentValueRef RangeTest MethodAnalysis TimePerformed AtPathologist VntlnsutdArpjyry096(H)65 - 100 mg/dL10/30/2016 8:58 [facility] BUN98 - 25 mg/dL10/30/2016 8:58 AM ESTFAIR[facility] LABORATORYCreatinine0.63(L)0.70 - 1.40 mg/dL10/30/2016 8:58 AM [facility] QEJWVSUDUXJvzsgo266017 - 148 mmol/L 10/30/2016 8:58 AM ESTFA[facility] LABORATORYPotassium3.83.5 - 5.0 mmol/L 10/30/2016 8:58 AM [facility] JUYPDGVTKEMlimhdvd1741 - 110 mmol/L10/30/2016 8:58 AM [facility] BTABAFFAPBDR50676 - 32 mmol/L10/30/2016 8:58 AM EST [facility]ORATORYAnion Uug409 - 18 mmol/L10/30/2016 8:58 AM ESTFAIR[facility] LABORATORYCalcium8.58.5 - 10.5 mg/dL10/30/2016 8:58 AM [facility] Glom Filtration Rate (AA)>60>60010/30/2016 8:58 AM ESTFAIRVIEW LABORATORYGlom Filtration Rate (SENAIT)>60>60 .10/30/2016 8:58 AM ESTFAIRVIEW LABORATORYSpecimen (Source)Anatomical Location / LateralityCollection Method / VolumeCollection TimeReceived TimeBlood specimen (specimen)BLOOD SPECIMEN / Oxxjfri3910/30/2016 7:24 AM EST10/30/2016 7:25 AM EST Narrative Authorizing ProviderResult TypeResult StatusLatonya Reyes MDLABORATORY REGIONALFinal ResultPerforming OrganizationAddressCity/State/ZIP CodePhone Number [facility] [id number] [place] [phone] from Last 3 Months or Most Recently Relevant to Health Maintenance Insurance Care Teams Team MemberRelationshipSpecialtyStart DateEnd Date Brunilda Rose CNP PCP - GeneralFamily Medicine04/15/18 Armani Murphy Jr., MD Ykrrieuxvixl25/20/16
--- OUTSIDE RECORDS SUMMARY | 2025-09-20 09:50 | XMS_ITS | Clinical Summary ---
Author Organization [employer] Address [id number] [place] [address] Care Team Providers Care Sprinkling System Installer Name Role Phone RamseyBrunilda barone Altagracia UROLOGIST-ELECTRONIC SYSTEM ENGINEER Primary Care Provider Allergies Active AllergyReactionsCriticalityNoted DateCommentsPiroxicamSwellingMedium 08/16/20199975LhwmyjqntoaNdakAkd06/02/2016 Medications MedicationSigDispense QuantityRefillsLast FilledStart DateEnd DateStatus acetaminophen [...] ORAL) Take 2 tablets by mouth daily.Active oxyCODONE (ROXICODONE) 5 mg immediate release tablet Indications:Closed stable burst fracture of second lumbar vertebra with routine healing, subsequent encounterTake 1 tablet (5 mg total) by mouth every 6 (six) hours as needed for pain for up to 5 days. Max Daily Amount: 20 mg 20 tablet Expired Active Problems ProblemNoted DateDiagnosed DateClass 2 severe obesity due to excess calories with serious comorbidity and body mass index (BMI) of37.0 to 37.9 in adult 08/28/20258288Pocglsldtmxv29/11/2025losed stable burst fracture of second lumbar izizkpih65/31/2025Acute kidney tbwciz3008/17/20256841Rfhvxrbrrhno51/31/2025 Pjuomwywfiukay47/31/2025igarette bftsfm0008/17/2025VIN III (vulvar intraepithelial neoplasia III)10/04/2019HypertensionRA (rheumatoid arthritis) Resolved Problems ProblemNoted DateDiagnosed DateResolved DateClass 3 severe obesity due to excess calories with serious comorbidity and body mass index (BMI) of40.0 to 44.9 in adult5BMI 45.0-49.9, adult Encounters DateTypeDepartmentCare UclhXzgpotnoevy38/12/2025Orders Only [facility] [address] [place] [address] Brandon Shah, DO Closed stable burst fracture of second lumbar vertebra with routine healing, subsequent encounter (Primary Dx)5[facility] [address] [place] [address] Brandon Shah, DO Closed stable burst fracture of second lumbar vertebra with routine healing, subsequent encounter (Primary Dx); Rheumatoid arthritis involving right shoulder, unspecified whether rheumatoid factor present ([facility] Cigarette smoker; Hyponatremia; Class 2 severe obesity due to excess calories with serious comorbidity and body mass index (BMI) of37.0 to 37.9 in adult5[facility] [address] [place] [address] Brandon Shah, DO Closed stable burst fracture of second lumbar vertebra with routine healing, subsequent encounter (Primary Dx); Primary zxlvqzhajnhy29/31/2025[facility] [address] [place] [address] Brandon Shah, DO Closed stable burst fracture of second lumbar vertebra with routine healing, subsequent encounter (Primary Dx); Primary hypertension; Acute kidney injury; Hyperkalemia; Hypothyroidism, unspecified type; Class 3 severe obesity due to excess calories with serious comorbidity and body mass index (BMI) of40.0 to 44.9 in adult ([facility] Cigarette smokerfrom Last 3 Months Family History Medical HistoryRelationNameCommentsAnesthesia problemsNeg HxRelationNameStatus CommentsFatherDeceasedMotherDeceased Social History Tobacco UseTypesPacks/DayYears UsedDateSmoking Tobacco: Every IvrSaglrlcjdn237 Smokeless Tobacco: NeverAlcohol UseStandard Drinks/WeekCommentsNever0 (1 standard drink = 0.6 oz pure alcohol)AUDIT-CAnswerDate RecordedFrequency of Alcohol AdgyrszyanyGhtme91/30/2019Average Number of DrinksNot on file08/16/2019 Frequency of Binge DrinkingNot on file08/16/2019ChildcareAnswerDate Recorded BzfqmnlkxKaqazfv54/12/2019EmploymentAnswerDate RecordedEmploymentUnknown 03/29/2019Purpose - LifeAnswerDate RecordedPurpose and direction in lifeUnknown 1CommentsNoSex and Gender InformationValueDate RecordedSex Assigned at BirthNot on fileLegal DduEpbynd35/06/2015 11:35 AM EDTGender IdentityNot on fileSexual OrientationNot on file Last Filed Vital Signs Vital SignReadingTime TakenCommentsBlood Onpebeqf317/6208/28/2025 11:41 AM EST Vpmcr307708/28/2025 11:41 AM NUUXidlkmzrapx57.8 ??C (98.2 ??F)08/28/2025 11:41 AM ESTRespiratory Gzlf383610/28/2024 11:41 AM ESTOxygen Cusuembaij33%08/28/2025 11:41 AM ESTInhaled Oxygen Concentration--Jvryul791.7 kg (233 lb)08/28/2025 11:41 AM KAMLtfiab212.6 cm (5' 6 )08/28/2025 11:41 AM ESTBody Mass Index37.6108/28/2025 11:41 AM EST Plan of Treatment Health MaintenanceDue DateLast DoneCommentsDepression Qsvmpsinp25/09/1962Tobacco Qczithssg19/09/1962Adult BMI Follow Up Plan1968DTaP,Tdap and Td Vaccines (1 - Tdap)1969Zoster (Shingles) Vaccine (1 of 2)1969RSV ( or age 60+ yrs) (1 - Risk 60-74 years 1-dose series)2010Fall Risk Screening 2015COVID-19 Vaccine (5 - 2024- season), 09/10/2021, 01/07/2021, Additional history existsInfluenza Kspwevp56, 08/26/2021, 08/27/2020Adult BMI Ohldaffxl44 Medical Devices Not on file Insurance Care Teams Team MemberRelationshipSpecialtyStart DateEnd Date Brunilda Rose, UROLOGIST-ELECTRONIC SYSTEM ENGINEER PCP - GeneralNurse Vjrvksgsyhvi75/30/19
--- OUTSIDE RECORDS SUMMARY | 2025-09-20 09:50 | XMS_ITS | Clinical Summary ---
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 Name Role Phone Brunilda Rose NP Unavailable [phone] Jerry Shah MD Primary Care Provider [phone] Allergies Active AllergyReactionsCriticalityNoted UaomUrmktcbsTcbmcoystHevwrkqk60/19/2024 AlwbiyveajvNjvndso70/19/2024 Medications MedicationSigDispense QuantityRefillsLast FilledStart DateEnd DateStatus methotrexate [...] tablet Take 0.6 mg by mouth As fkelxelf34/08/2024ctive alendronate (Fosamax) 70 MG tablet Take 70 [...] Problems ProblemNoted DateDiagnosed DateCigarette nicotine dependence without yswwanzgmogg97/05/2025 Assessment & Plan (12/20/2024 6:53 AM EST): The patient has been advised of the risks of continued smoking: stroke, [place], all forms of cancer, lung disease, and . Options for quitting smoking include: cold turkey, hypnosis, acupuncture, nicotine replacement meds(gum, lozenges, and patches), Buproprion, and Varenicline. At this time pt is encouraged to evaluate their goals for wanting to quit smoking, and reach out toprovider when ready to start this process Sihsdtqpatmpyj13/26/2024 Assessment & Plan (12/20/2024 11:39 AM EST): [...] script Fu in 6 months Abdominal pain, kpeutglxsjv30/26/2024HTN (hypertension)12/13/2023 Assessment & Plan (12/20/2024 6:44 AM [...] EST): Stable, no changes Malignant neoplasm of fxbquy1612/13/2023 Assessment & Plan (06/12/2024 6:52 AM EDT): Continue with Mother'S Helper/Onc Xgfuibbaswut92/26/2024 Overview (05/09/2024): DEXA: 05/08/24: lumbar -2.1 and right femur -3.0 osteoporosis Assessment & Plan (12/20/2024 6:54 AM EST): DEXA was 05/10, -3.0, Current med fosamax Vexfugmbslnidj10/26/2024Lower extremity edema12/13/2023 Assessment & Plan (12/20/2024 6:46 AM EST): Lasix Limit sodium, elevate feet as much as possible Check labs yearly and prn Assessment & Plan (12/13/2023 11:59 AM EST): Stable, no acute swelling Heel spur, left12/13/2023Vitamin B12 gifkaypncm34/26/2024Morbid (severe) obesity due to excess lrslxnhi14/26/2024 Assessment & Plan (12/20/2024 6:48 AM EST): Discussed with patient their BMI (actual, verses recommended). We have also discussed lifestyle modifications: attempts to perform physical activity as chronic conditions allow, also to monitor dietary intake: increasing protein/fruits/veggies and lowering carb intake (unless contraindicated). Limit sodas, juices, and sugary drinks. Ziddasmrkpl73/26/2024 Assessment & Plan (12/20/2024 6:48 AM EST): Current med on levothyroxine Check labs yearly, prn dose changes, changes in symptoms Assessment & Plan (06/12/2024 11:23 AM EDT): Fatigue, takes thyroid meds daily as directed Assessment & Plan (12/13/2023 11:59 AM EST): No changes to meds Rheumatoid arthritis with rheumatoid factor, xqpftutqgai67/26/2024 Assessment & Plan (12/20/2024 6:52 AM EST): Continue with dr fernandez Current meds: humira, methotrexate, Assessment & Plan (12/13/2023 12:04 PM EST): Continue with dr fernandez Non-compliant hviwrzz6112/13/20231043Iicggddgsiqsc46/26/2024 Assessment & Plan (12/20/2024 11:38 AM EST): [...] see what glucose is H/O degenerative disc nbyyzwq8212/13/2023Gout12/13/2023 Assessment & Plan (12/20/2024 6:50 AM EST): Current meds allopurinol and colchicine Labs check w Rheumatology Kxpqnan4412/13/2023 Assessment & Plan (06/12/2024 11:27 AM EDT): [...] A1c test and go from there Allergic brqmmijt81/26/2024cute pain of left mmdlsqew81/26/2024 Assessment & Plan (12/13/2023 12:02 PM EST): [...] 6:45 AM EST): 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 w ADVICE CLERK/onc Body mass index (BMI) 40.0-44.9, adult09/27/2019Chronic idiopathic gout of multiple sites10/06/2016 Assessment & Plan (12/20/2024 6:46 AM EST): Takes allopurinol Labs are follow with Rheumatology Gastroesophageal reflux disease without lmwouqcpusu30/20/2016 Assessment & Plan (12/20/2024 11:40 AM EST): [...] without complication, without long-term current use of cfqraaj69/Morbid hpdynmb88Other specified rheumatoid arthritis, multiple sitesSmoker112/07/2015 12/20/2024 Overview (12/13/2023): 45+ pack years Immunizations ImmunizationAdministration DatesNext DueInfluenza, Seasonal, Quadrivalent, Dsdcolkyoe35/13/2023,08/11/2022,08/26/2021,08/27/2020Pfizer Purple Cap SARS-CoV-2 Strwmzgiair33/24/2021,01/07/2021,1Pneumococcal Conjugate PCV 13110/27/2019Pneumococcal Polysaccharide NFTS5979/11/2545ZQGZ-FER-3 (COVID-19) vaccine, mRNA, spike protein, LNP, PF, [place]-sucrose, 30 mcg/0.3 mL07/30/2023 SARS-COV-2 (COVID-19) vaccine, mRNA, spike protein, LNP, bivalent, preservative free, 30 mcg/0.3 mLdose, [place]-sucrose asswmxelxtn18/25/2022 Social History Tobacco UseTypesPacks/DayYears UsedDateSmoking Tobacco: Every [...] relatives?Once a week12/13/2023How often do you attend methodist or jew services?Never12/13/2023o you belong to any clubs or organizations such as methodist groups, unions, fraternal or athletic groups, or school groups?Yes12/13/2023How often do you attend meetings of the clubs or organizations you belong to?Never12/13/2023re you , , , , never , or living with a partner?Fxudsts5612/13/2023UDIT-C AnswerDate RecordedQ1: How often do you have [...] hard at all12/13/2023 PHQ-2AnswerDate RecordedPatient Health Questionnaire-2 Oflxn255[facility] [place] [facility] - Occupational Stress QuestionnaireAnswerDate RecordedDo you feel stress - tense, restless, nervous, or anxious, or unable to sleep at night because yourmind is troubled all the time - these days?Only a gmysou5512/13/2023Exercise Vital SignAnswerDate RecordedOn average, how many days [...] steady place to sleep or slept in [facility] (including now)?No12/13/2023CommentsUnknownSex and Gender InformationValueDate RecordedSex Assigned at BirthNot on fileLegal SexFemale 06/16/2023 9:04 AM EDTGender IdentityNot on fileSexual OrientationNot on file Last Filed Vital Signs Vital SignReadingTime TakenCommentsBlood Lzrliein178/80012/20/2024 10:30 AM EST Yqgaw299812/20/2024 10:30 AM MPETquhzzobhzz40.8 ??C (98.3 ??F)12/20/2024 10:30 AM ESTRespiratory Qrex775812/20/2024 10:30 AM ESTOxygen Ihjnqmmfar79%12/20/2024 10:30 AM ESTInhaled Oxygen Concentration--Kyxzfn739 kg (244 lb 6.4 oz)12/20/2024 10:30 AM RKUKwwnmg411.6 cm (5' 4 )12/20/2024 10:30 AM ESTBody Mass Index41.95 12/20/2024 10:30 AM EST Plan of Treatment Not on file Insurance Care Teams Team MemberRelationshipSpecialtyStart DateEnd Date Jerry Shah MD PCP - GeneralFamily Medicine12/06/23 Brunilda Rose NP Nurse PractitionerFamily Medicine10/18/22
--- OUTSIDE RECORDS SUMMARY | 2025-09-20 09:52 | XMS_ITS | CCD ---
Author Organization [facility] CliniSypr Care Team Providers Care Opto Mechanical Engineer Name Role Phone MAHDI, BLAINE Unavailable Unavailable MAHDI, BLAINE Unavailable Unavailable MAHDI, BLAINE Unavailable Unavailable MAHDI, BLAINE Unavailable Unavailable AICHHOLZ, HAIRSPRING STAKER BRUNILDA Primary Care Unavailable MISC, DOCTOR Attending Unavailable MISC, DR SMITH Consulting Unavailable MISC, DR SMITH Admitting Unavailable AICHHOLZ, HAIRSPRING STAKER BRUNILDA Consulting Unavailable AICHHOLZ, HAIRSPRING STAKER BRUNILDA Admitting Unavailable AICHHOLZ, HAIRSPRING STAKER BRUNILDA Primary Care Unavailable AICHHOLZ, HAIRSPRING STAKER BRUNILDA Attending Unavailable MISC, DR SMITH Admitting Unavailable AICHHOLZ, HAIRSPRING STAKER BRUNILDA Primary Care Unavailable MISC, DR SMITH Attending Unavailable MISC, DR SMITH Consulting Unavailable AICHHOLZ, HAIRSPRING STAKER BRUNILDA Attending Unavailable AICHHOLZ, HAIRSPRING STAKER BRUNILDA Consulting Unavailable AICHHOLZ, HAIRSPRING STAKER BRUNILDA Primary Care Unavailable AICHHOLZ, HAIRSPRING STAKER BRUNILDA Admitting Unavailable AICHHOLZ, HAIRSPRING STAKER BRUNILDA Primary Care Unavailable MISC, DR SMITH Attending Unavailable MISC, DR SMITH Consulting Unavailable AICHHOLZ, HAIRSPRING STAKER BRUNILDA Admitting Unavailable AICHHOLZ, HAIRSPRING STAKER BRUNILDA Primary Care Unavailable THERESA, DR KAPOOR Admitting Unavailable KOKO, DR KALEIGH Jameson Consulting Unavailable CARDENAS, DR KAPOOR Attending Unavailable CARDENAS, DR KAPOOR Consulting Unavailable MISC, DR SMITH Attending Unavailable AICHHOLZ, HAIRSPRING STAKER BRUNILDA Primary Care Unavailable MISC, DR SMITH Consulting Unavailable MISC, DR SMITH Admitting Unavailable Aichholz PUBLIC INTERVIEWER-GENI Brunilda Altagracia Primary Care Provider Aichfrankiez PHYSICAL TRAINER, Brunilda Unavailable Jerry Shah MD Primary Care Provider [phone] AICHHOLZ, BRUNILDA Attending Unavailable AICHHOLZ, BRUNILDA Attending Unavailable Aichholz PHYSICAL TRAINER-C, Brunilda J Primary Care Provider [phone] Milton LARA, Brunilda Frias Attending Provider [phone] Brunilda Rose NP Unavailable Jerry Shah MD Primary Care Provider [phone] Brunilda Pennington Primary Care Provider Allergies Allergy ClassificationReported Allergen(s)Allergy TypeDate of OnsetReaction(s) Facility (15 sources)Penicillins; Translations: [PENICILLINS]Propensity to adverse reactions to drug (disorder)30-31-7619Bdxa, UnknownMetro[facility] (14 sources)PiroxicamDrug Expgyja48-18-2840HjzbeegtNxlKyilzm Health System Medications Current Medications MedicationDrug Class(es)DatesSig (Normalized)Sig (Original)acetaminophen 325 mg oral tablet (3 sources)Start: 60-79-2400udmt 2 tablets by mouth every six hours as needed acetaminophen (TYLENOL) 325 mg tablet Take 650 mg by mouth every 6 (six) hours as needed. 10/30/2016 Active0.8 ml adalimumab 50 mg/ml prefilled syringe (14 sources)Tumor Necrosis Factor BlockerStart: 77-65-5406Pgigvyedvb (Humira) 40 mg/0.8 mL syringe kit Active 0 SUBCUT .COMPLEX July 13, 2025 12:00am i nject one - 40 mg/0.8 mL syringe every 2 weeks subcut Complies with drug therapy adalimumab (HUMIRA) 40 mg/0.8 mL injection Inject 40 mg under the skin Every 14 days. Activeadalimumab (Humira) 40 MG/0.8ML Prefilled Syringe Kit prefilled syringe Inject 40 mg under the skinevery 14 (fourteen) days Activealendronic acid 70 mg oral tablet (5 sources)BisphosphonateStart: 55-38-2526hpxr 1 tablet by mouth every week Alendronate (Fosamax) 70 mg tablet Active 70 MG PO every week July 13, 2025 12:00am Complieswith drug therapyStart: 52-35-9620mbprmyjkdrp (Fosamax) 70 MG tablet Take 70 mg by mouth every 7 (seven) days 11/28/2024 Activeallopurinol 300 mg oral tablet (14 sources)Xanthine Oxidase InhibitorStart: 83-20-5461dquh 1 tablet by mouth once dailyAllopurinol 300 mg tablet Active 300 MG PO Daily July 13, 2025 12:00am Complies with drug therapycalcium citrate/vitamin D3 (CITRACAL REGULAR ORAL) (3 sources)take 2 tablets by mouth once dailycalcium citrate/vitamin D3 (CITRACAL REGULAR ORAL) Take 2 tablets by mouth daily. Activetake 2 tablets by mouth once dailycalcium citrate/vitamin D3 (CITRACAL REGULAR ORAL) Take 2 tablets by mouth daily. 0 Activecalcium polycarbophil 625 mg oral tablet (14 sources)Start: 34-08-3824Bqiosvb Polycarbophil 625 mg tablet Active 1250 MG PO Daily July 13, 2025 12:00am Complies with drug therapytake 1 tablet by mouth once dailypolycarbophil (FIBERCON) 625 mg tablet Take 625 mg by mouth daily. Activecetirizine hydrochloride 10 mg oral tablet (14 sources)Histamine-1 Receptor AntagonistStart: 81-06-6791jndx 1 tablet by mouth once daily as neededCetirizine 10 mg tablet Active 10 MG PO Daily as needed July 13, 2025 12:00am Complies with drug therapycolchicine 0.6 mg oral tablet (15 sources)Start: 09-30-2023 End: 24-44-3075ietq 1 capsule by mouth in the morningMitigare 0.6 MG capsule Take 1 capsule by mouth in the morning. 09/30/2023 06/12/2024 Discontinued ( Therapy completed)Start: 59-07-9458bpgn 1 tablet by mouth once daily as needed Colchicine 0.6 mg tablet Active 0.6 MG PO Daily as needed for gout July 13, 2025 12:00am Complies with drug therapydocusate sodium 100 mg oral capsule (3 sources)Start: 48-09-0267qohy 1 capsule by mouth every twelve hours as needed docusate sodium (COLACE) 100 mg capsule Take 100 mg by mouth every 12 (twelve) hours as needed. 10/30/2016 Activefolic acid 1 mg oral tablet (16 sources)Start: 97-24-9867bvqn 1 tablet by mouth once dailyFolic Acid 1 mg tablet Active 1 MG PO Daily July 16, 2025 12:00am Complies with drug therapyStart: 11-28-2024 End: 83-12-2381mrzn 1 tablet by mouth once dailyfolic acid (Folvite) 1 MG tablet Indications: Rheumatoid arthritis with rheumatoid factor, unspecified (CMS/HCC) Take 1 tablet (1 mg) by mouth Daily 90 tablet 3 12/20/2024 03/20/2025 Active Start: 09-30-2023 End: 49-80-8095yhmb 1 tablet by mouth once daily in the morningfolic acid (Folvite) 1 MG tablet Indications: Rheumatoid arthritis with positive rheumatoid factor,involving unspecified site (CMS/HCC) Take 1 tablet (1,000 mcg) by mouth Daily Take 1 tablet by mouth in the morning. 90 tablet 3 06/12/2024 09/10/2024 Activefurosemide 40 mg oral tablet (17 sources)Loop DiureticStart: 06-13-2016 End: 80-98-0623zlzo 1 tablet by mouth once dailyFurosemide (Lasix) 40 mg tablet Active 40 MG PO Daily July 13, 2025 12:00am Complies with drug therapy gabapentin 300 mg oral capsule (20 sources)Anti-epileptic AgentStart: 90-46-6457idqw 1 capsule by mouth twice dailyGabapentin 300 mg capsule Active 300 MG PO Twice daily July 13, 2025 12:00am Complies with drug therapyStart: 12-13-2023 End: 31-19-2226kcnq 1 capsule by mouth in the morninggabapentin (Neurontin) 100 MG capsule Indications: Polyneuropathy Take 1 capsule (100 mg) by mouth in the morning. 90 capsule 3 12/13/2023 06/12/2024 Discontinued (Ineffective)Start: 12-13-2023 End: 76-68-4299clbq 1 capsule by mouth in the morninggabapentin (Neurontin) 300 MG capsule Indications: Polyneuropathy Take 1 capsule (300 mg) by mouth in the morning and 1 capsule (300 mg) before bedtime. 180 capsule 3 12/20/2024 03/20/2025 ActiveStart: 86-74-8274palm 1 capsule by mouth once dailygabapentin (NEURONTIN) 300 mg capsule Take 300 mg by mouth nightly. 06/08/2016 Active levothyroxine sodium 0.15 mg oral tablet (17 sources)l-ThyroxineStart: 95-43-0280itgt 1 tablet by mouth once daily Levothyroxine 150 mcg tablet Active 150 MCG PO Daily July 13, 2025 12:00am Complies with drug therapyStart: 12-13-2023 End: 01-58-5432uayy 1 tablet by mouth before mealtimelevothyroxine (Synthroid, Levoxyl) 150 MCG tablet Indications: Hypothyroidism, unspecified type (CMS/HCC) Take 1 tablet (150 mcg) by mouth in the morning. Take before meals. 90 tablet 3 12/20/2024 03/20/2025 ActiveStart: 00-43-7306woav 1 tablet by mouth once daily levothyroxine (SYNTHROID, LEVOTHROID) 175 MCG tablet Take 175 mcg by mouth daily. 08/04/2019 Activelisinopril 10 mg oral tablet (17 sources)Angiotensin Converting Enzyme InhibitorStart: 68-05-3410cpqu 1 tablet by mouth once dailyLisinopril 10 mg tablet Active 10 MG PO Daily July 13, 2025 12:00am Complies with drug therapyStart: 12-13-2023 End: 00-28-9953odki 1 tablet by mouth once dailylisinopril 10 MG tablet Indications: Primary hypertension (CMS/HCC) Take 1 tablet (10 mg) by mouth Daily 90 tablet 3 12/20/2024 03/20/2025 Activeloratadine 10 mg oral tablet (3 sources)take 1 tablet by mouth once dailyloratadine (CLARITIN) 10 mg tablet Take 10 mg by mouth daily. Activemagnesium hydroxide 80 mg/ml oral suspension (3 sources)Start: 22-83-6650lpzomoixk hydroxide (MILK OF MAGNESIA) 400 mg/5 mL suspension Take 15 mL by mouth. 10/30/2016 Activemethotrexate 2.5 mg oral tablet (14 sources)Folate Analog Metabolic InhibitorStart: 95-94-6579jpsy 1 tablet by mouth every weekMethotrexate Sodium 2.5 mg tablet Active 2.5 MG PO every week July 13, 2025 12:00am Complieswith drug therapyMultiple Vitamin (Multi- Vitamin) tablet (10 sources)take 1 tablet by mouth in the morningMultiple Vitamin (Multi- Vitamin) tablet Take 1 tablet by mouth in the morning. Activemultivitamin (THERAGRAN) tablet (3 sources)take 1 tablet by mouth once dailymultivitamin (THERAGRAN) tablet Take 1 tablet by mouth daily. Activetake 1 tablet by mouth once dailymultivitamin (THERAGRAN) tablet Take 1 tablet by mouth daily. 0 ActiveMultivitamin tablet (1 source)Start: 72-93-3060repx 1 tablet by mouth once dailyMultivitamin tablet Active 1 TAB PO Daily July 13, 2025 12:00am Complies with drug therapy omeprazole 20 mg delayed release oral capsule (15 sources)Proton Pump InhibitorStart: 35-25-0617nuuh 1 capsule by mouth once dailyOmeprazole 20 mg capsule,delayed release(DR/EC) Active 20 MG PO Daily July 13, 2025 12:00am Complies with drug therapyStart: 12-13-2023 End: 50-07-8859pkkv 1 capsule by mouth before mealtimeomeprazole (PriLOSEC) [address] capsule Indications: Gastroesophageal reflux disease without esophagitis Take 1 capsule (20 mg) by mouth in the morning. Take before meals. 90 capsule 3 12/20/2024 03/20/2025 Activepotassium chloride 10 meq extended release oral tablet (17 sources)Start: 45-07-1020kskm 2 tablets by mouth twice dailyPotassium Chloride 10 mEq tablet extended release Active 20 MEQ PO Twice daily July 132:00am Complies with drug therapyStart: 12-13-2023 End: 83-01-2746fzlyxaiyc chloride CR (Klor-Con) 10 MEQ ER tablet Indications: Lower extremity edema 2 pills twice a day 360 tablet 3 12/20/2024 ActiveStart: 77-51-3522qefoczbfh chloride (K-DUR,KLOR-CON) 10 MEQ CR tablet Take 10 mEq by mouth daily. 03/30/2017 ActivepredniSONE 5 mg oral tablet (14 sources)Start: 74-16-6225ibsu 7.5 mg by mouth once dailyPrednisone 5 mg tablet Active 7.5 MG PO Daily July 13, 2025 12:00am Complies with drug therapyStart: 96-13-4080rsmb 1.5 tablets by mouth in the morningpredniSONE (Deltasone) 5 MG tablet Take 1.5 tablets by mouth in the morning. 09/30/2023 Activetake 1 tablet by mouth once dailypredniSONE (DELTASONE) 5 mg tablet Take 5 mg by mouth daily. Activevitamin b12 1 mg/ml injectable solution (3 sources)Vitamin R66uwujkyfvmvqsnk (VITAMIN B-12) 1,000 mcg/mL injection Inject 1,000 mcg into the appropriate muscle every 30 (thirty) days. Active Problems Active Problems Problem ClassificationProblemDateDocumented DateEpisodic/ChronicAcute and unspecified renal failure (3 sources)Acute renal failure syndrome; Translations: [Acute kidney failure, unspecified]Onset: 008650-38-7533ZrmaitvrYjqzma of other female genital organs (20 sources)Vulval intraepithelial neoplasia grade 3; Translations: [Carcinoma in situ of vulva]Onset: 469386-01-1961TvooigjLysoofuvtc disorders (16 sources)Gastroesophageal reflux disease without esophagitis; Translations: [Gastro-esophageal reflux disease without esophagitis]Onset: 10-06-2016 89-51-3312AjjvivnBiahvjdqx hypertension (20 sources)Hypertensive disorder; Translations: [Essential (primary) hypertension]Onset: 069657-57-7734NsxtyzvDyesh and electrolyte disorders (3 sources)Hyperkalemia; Translations: [Hyperkalemia]Onset: EpisodicGout and other crystal arthropathies (20 sources)Idiopathic gout, multiple sites; Translations: [Chronic primary gouty arthritis]Onset: 380745-07-4298SzoplilLpxxzobbazfoeq (12 sources)Primary generalized (osteo)arthritis; Translations: [Osteoarthritis] Onset: 792259-55-0075YynidesKebdwpzyyqap (17 sources)Age-related osteoporosis without current pathological fracture; Translations: [Osteoporosis]Onset: 87-25-0751SgkofndTalrq aftercare (1 source)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; Translations: [OTH ROAD DESIGN ENGINEER CURRENT DRUG THERAPY]Onset: 58-99-4627YdgywkeqRaiks connective tissue disease (1 source)Calcaneal spur; Translations: [Calcaneal spur, unspecified foot] 04-96-5512HlpcrqujFgalu fractures (4 sources)Closed fracture lumbar vertebra, burst ; Translations: [Stable burst fracture of second lumbar vertebra, subsequent encounter for fracture with routine healing]Onset: 272413-56-2935HbvlrpqsHqdwb nervous system disorders (15 sources)Polyneuropathy; Translations: [Polyneuropathy, unspecified]Onset: 397762-06-6098HyfwodwYrbxm nutritional; endocrine; and metabolic disorders (18 sources)Body mass index 40+ - severely obese; Translations: [Body mass index (BMI) 45.0-49.9, adult]Onset: 281942-44-3732BljygsuWaylx nutritional; endocrine; and metabolic disorders (16 sources)Obesity caused by energy imbalance; Translations: [Morbid (severe) obesity due to excess calories]Onset: 687527-42-6480XwdlnatPukca nutritional; endocrine; and metabolic disorders (3 sources)Severe obesity; Translations: [Class 3 severe obesity due to excess calories with serious comorbidity and body mass index (BMI) of 40.0 to 44.9 in adult ([facility])]Onset: 145838-11-4717GhkvgobOlvhy upper respiratory disease (11 sources)Allergic rhinitis; Translations: [Allergic rhinitis, unspecified] Onset: 613760-20-7615EfzgucnIjgseibtte arthritis and related disease (20 sources)Rheumatoid arthritis with rheumatoid factor of multiple sites without organ or systems involvement;Translations: [Rheumatoid arthritis]Onset: 10-06-2016 Resolved: 99-80-6558QuqiqkfYqxhtknkw-related disorders (20 sources)Smoker; Translations: [Nicotine dependence, unspecified, uncomplicated]Onset: 10-06-2016 Resolved: 489464-73-2574UfanzekWlfxoej disorders (20 sources)Hypothyroidism, unspecified; Translations: [Hypothyroidism]Onset: 40-70-7705MqftwrjDybnuwzspbiv (1 source)Unknown / UNK(Unknown)Onset: 04-15-2018 Past or Other Problems Problem ClassificationProblemDateDocumented DateEpisodic/ChronicAbdominal pain (11 sources)Generalized abdominal pain; Translations: [Generalized abdominal pain]Onset: 079667-89-1026SpdbncxkYkuojiqm mellitus without complication (10 sources)Type 2 diabetes mellitus without complication; Translations: [Type 2 diabetes mellitus without complications]Onset: 11-22-2023 Resolved: 474492-53-7008BgqfunbIlkzqsxs mellitus without complication (15 sources)Hyperglycemia; Translations: [Hyperglycemia, unspecified]Onset: 801227-45-9649HgpogvjiLqcdbfl and fatigue (13 sources)Fatigue; Translations: [Other fatigue]Onset: EpisodicMood disorders (10 sources)Mood disordersOnset: 12-13-2023 Resolved: 051991-83-0914Xsutojqlfzs deficiencies (11 sources)Cobalamin deficiency; Translations: [Deficiency of other specified B group vitamins]Onset: 320011-49-7157GouphrvcOfrdf connective tissue disease (10 sources)Calcaneal spur of left foot; Translations: [Calcaneal spur, left foot]Onset: 768102-58-0998CqvookpaWpfjx connective tissue disease (11 sources)H/O: osteoarthritis; Translations: [Personal history of other diseases of the musculoskeletal system and connective tissue]Onset: 12-13-2023 37-70-5953MgrkmpxtOvhki non-traumatic joint disorders (11 sources)Pain in left shoulder; Translations: [Pain in joint, shoulder region]Onset: 280386-34-2925WbzbzgugXkqkg nutritional; endocrine; and metabolic disorders (10 sources)Morbid obesity; Translations: [Morbid (severe) obesity due to excess calories]Onset: 10-06-2016 Resolved: 180117-96-4925QcpgpzeNiagimyj codes; unclassified (16 sources)Edema of lower extremity; Translations: [Localized edema]Onset: 255995-88-0102MgndmfyxAqkbcelb codes; unclassified (12 sources)Tobacco user; Translations: [Tobacco use]Onset: 12-13-2023 Resolved: 031764-03-5254GacmyhlfZfhmtpry codes; unclassified (11 sources)Noncompliance with treatment; Translations: [Non-compliant patient] Onset: 961395-40-5509Wqrleqti Results Test NameValueInterpretationReference RangeFacilityALL CBC WITH AUTO DIFFon 66-45-7963OYQTFSSNZ ABSOLUTE FYZH1GZMN HealthcareBasophils/100 WBC (Bld)0.3 %0.2 - 2.0 %[facility] HospitalEosinophils/100 WBC (Bld)6.1 %0.9 - 7.0 %[facility] Erythrocyte distribution width (RBC) [Ratio]14.9 %11.0 - 15.0 %[facility] Hematocrit (Bld) [Volume fraction]46.7 %36.0 - 48.0 %[facility] HospitalHemoglobin (Bld) [Mass/Vol]15 g/dL12.0 - 16.0 g/dLBarnes-Jewish West County HospitalIMMATURE GRANULOCYTES ABS AUTO0.02NOCass Medical CenterImmature granulocytes/100 WBC (Bld)0.3 %0.0 - 0.5 %[facility] HospitalInterpretation and review of laboratory resultsAbnormalBarn[facility] LYMPHOCYTES ABSOLUTE AUTO1.9NOCass Medical CenterLymphocytes/100 WBC (Bld)26 %20.5 - 60.0 %[facility] CenterH (RBC) [Entitic mass]33.6 pg26.7 - 34.0 pgSaint Joseph Health CenterHC (RBC) [Mass/Vol]32.1 g/dL29.9 - 35.2 g/dLSaint Joseph Health CenterV (RBC) [Entitic vol]104.5 qSXzbe94.0 - 99.0 fLBarnes-Jewish West County HospitalMONOCYTES ABSOLUTE AUTO 0.6NOMS [facility] HospitalMonocytes/100 WBC (Bld)7.5 %1.7 - 12.0 %[facility] NEUTROPHILS ABSOLUTE AUTO4.4NOCass Medical CenterNeutrophils/100 WBC (Bld)59.8 %43.0 - 75.0 %[facility] HospitalPlatelet mean volume (Bld) [Entitic vol]9 fLLow9.5 - 13.5 fLBarnes-Jewish West County HospitalTBH EO #0.5NOChildren's Mercy Hospital [id number]'s Mercy Hospital RBC4.47 [facility] WBC7.3NOCass Medical CenterCLINISYNCNOMS Brown Memorial HospitalALL CBC WITH AUTO DIFFon 02-20-9502ALLTUZPLV ABSOLUTE GDGE0EKQY HealthcareBasophils/100 WBC (Bld)0.3 %0.2 - 2.0 %[facility] HospitalEosinophils/100 WBC (Bld)4.4 %0.9 - 7.0 % [facility] HospitalErythrocyte distribution width (RBC) [Ratio]14.6 %11.0 - 15.0 % NOM HealthcareHematocrit (Bld) [Volume fraction]47.5 %36.0 - 48.0 %[facility] HospitalHemoglobin (Bld) [Mass/Vol]15.3 g/dL12.0 - 16.0 g/dLBarnes-Jewish [facility] IMMATURE GRANULOCYTES ABS AUTO0.03NOCass Medical CenterImmature granulocytes/100 WBC (Bld)0.4 %0.0 - 0.5 %[facility] HealthcareInterpretation and review of laboratory resultsAbnormalNOCass Medical CenterLYMPHOCYTES ABSOLUTE AUTO1.3N[facility] Lymphocytes/100 WBC (Bld)15.8 %Low20.5 - 60.0 %[facility] CenterH (RBC) [Entitic mass]33.7 pg26.7 - 34.0 pgNOCox NorthHC (RBC) [Mass/Vol]32.2 g/dL29.9 - 35.2 g/dLSaint Joseph Health CenterV (RBC) [Entitic vol]104.6 rDEnmg61.0 - 99.0 fLBarnes-Jewish West County HospitalMONOCYTES ABSOLUTE AUTO0.5NOMS [facility] HospitalMonocytes/100 WBC (Bld)6.4 % 1.7 - 12.0 %[facility] HospitalNEUTROPHILS ABSOLUTE AUTO5.8N[facility] Neutrophils/100 WBC (Bld)72.7 %43.0 - 75.0 %[facility] HospitalPlatelet mean volume (Bld) [Entitic vol]9.1 fLLow9.5 - 13.5 fLBarnes-Jewish West County HospitalTBH EO #0.4NOMS [facility] Memorial HospitalTB [id number]'s [facility]cy Hospital RBC4.54NOChildren's [facility]cy Hospital OAF7CMSFCass Medical CenterCLINISYNCNOMS HealthcareMLR HEMOGLOBIN A1Con 62-24-9242Oihfipd [Mass/Vol]111 mg/dLBarnes-Jewish West County HospitalHbA1c (Bld) [Mass fraction]5.5 %4.5 - 6.2 % [facility] HealthcareComment on above:ADA RECOMMENDED LIMIT 4.0 - 6.0 ADA THERAPEUTIC TARGET < 7.0 ACTION SUGGESTED > 7.0 CLINISYNCNOME HealthcareXR DEXA AXIAL SKELETONon 83-40-7971[address] [address] XRay Report Signed Patient: EUNICE CASTILLO MR#: [id number] : 1950 Acct:[id number] Age/Sex: 73 / F ADM Date: 05/05/24 Loc: [facility] Attending Dr: ANTWON CARDENAS Ordering Physician: ANTWON CARDENAS Date of Service: 05/05/24 Procedure(s): XR DEXA axial skeleton Accession Number(s): [id number] cc: Brunilda Rose PHYSICAL TRAINER; ANTWON CARDENAS [place] [address] Patient Name: EUNICE CASTILLO MRN: [id number] date: 1950 Sex: F Assigned Patient Location: [facility] Current Patient Location: Accession/Order Number: [id number] Exam Date: 05/05/2024 09:00 Report Date: 05/08/2024 07:57 At the request of: ANTWON CARDENAS Procedure: XR DEXA axial skeleton EXAMINATION: XR DEXA axial skeleton, 05/05/2024 9:00 AM EDT HISTORY: Age Related Osteoporosis M81.0 COMPARISON: . TECHNIQUE: Dual-energy X-ray absorptiometry (DEXA) bone density study performed for the axial skeleton. FINDINGS: Bone mineral density AP spine L1-L4 measures 0.933 g/sq cm. T score -2.1. Osteopenia. Lowest bone mineral density right femoral neck measures 0.620 g/sq cm. T score -3.0. Osteoporosis XR/XR DEXA axial skeleton IMPRESSION: Osteoporosis. High fracture risk Pharmacologic treatment recommendations * No uniform recommendation applies to all patients. Management plans must be individualized. * Consider initiating pharmacologic treatment in postmenopausal women and men >= 50 years of age who have the following: Primary fracture prevention: * T-score <= - 2.5 at the femoral neck, total hip, lumbar spine, 33% radius (some uncertainty with existing data) by DXA. * Low bone mass (osteopenia: T-score between - 1.0 and - 2.5) at the femoral neck or total hip by DXA with a 10-year hip fracture risk >= 3% or a 10-year major osteoporosis-related fracture risk >= 20% (i.e., clinical vertebral, hip, forearm, or proximal humerus) based on the US-adapted FRAXregistered model. Secondary fracture prevention: * Fracture of the hip or vertebra regardless of BMD [4, 5]. * Fracture of proximal humerus, pelvis, or distal forearm in persons with low bone mass (osteopenia: T-score between - 1.0 and - 2.5). The decision to treat should be individualized in persons with a fracture of the proximal humerus, pelvis, or distal forearm who do not have osteopenia or low BMD [12, 13]. Hazel MS, Elena SL, Sher KL, Carlos EM, Vivian KG, AJ, Neto ES. The clinician's guide to prevention and treatment of osteoporosis. Osteoporos Int. 2021;33(10):2084-7733. doi: 10.1007/j39243-574-37019-c. Epub 2021Feb 12. Erratum in: Osteoporos Int. 2021May 14;: PMID: [id number]; PMCID: [id number]. Electronically authenticated by: KALEIGH SUTHERLAND Date: 05/08/2024 07:57 Dictated By: Kaleigh Sutherland M.D. Signed By: 05/08/24 0800 DD/ 0757 TD/TT: Sagger Preparer:LIZABETHHRadiology, Radiologist, - 05/08/2024 [facility] [place] [id number] XRay Report Signed Patient: EUNICE CASTILLO MR#: [id number] : 1950 Acct:[id number] Age/Sex: 73 / F ADM Date: 05/05/24 Loc: RAD Attending Dr: ANTWON CARDENAS Ordering Physician: ANTWON CARDENAS Date of Service: 05/05/24 Procedure(s): XR DEXA axial skeleton Accession Number(s): [id number] cc: Brunilda Rose PHYSICAL TRAINER; ANTWON CARDENAS The [address] [address] Patient Name: EUNICE CASTILLO MRN: [facility]:[id number] date: 1950 Sex: F Assigned Patient Location: [facility] Current Patient Location: Accession/Order Number: [id number] Exam Date: 05/05/2024 09:00 Report Date: 05/08/2024 07:57 At the request of: ANTWON CARDENAS Procedure: XR DEXA axial skeleton EXAMINATION: XR DEXA axial skeleton, 05/05/2024 9:00 AM EDT HISTORY: Age Related Osteoporosis M81.0 COMPARISON: . TECHNIQUE: Dual-energy X-ray absorptiometry (DEXA) bone density study performed for the axial skeleton. FINDINGS: Bone mineral density AP spine L1-L4 measures 0.933 g/sq cm. T score -2.1. Osteopenia. Lowest bone mineral density right femoral neck measures 0.620 g/sq cm. T score -3.0. Osteoporosis XR/XR DEXA axial skeleton IMPRESSION: Osteoporosis. High fracture risk Pharmacologic treatment recommendations * No uniform recommendation applies to all patients. Management plans must be individualized. * Consider initiating pharmacologic treatment in postmenopausal women and men >= 50 years of age who have the following: Primary fracture prevention: * T-score <= - 2.5 at the femoral neck, total hip, lumbar spine, 33% radius (some uncertainty with existing data) by DXA. * Low bone mass (osteopenia: T-score between - 1.0 and - 2.5) at the femoral neck or total hip by DXA with a 10-year hip fracture risk >= 3% or a 10-year major osteoporosis-related fracture risk >= 20% (i.e., clinical vertebral, hip, forearm, or proximal humerus) based on the US-adapted FRAXregistered model. Secondary fracture prevention: * Fracture of the hip or vertebra regardless of BMD [4, 5]. * Fracture of proximal humerus, pelvis, or distal forearm in persons with low bone mass (osteopenia: T-score between - 1.0 and - 2.5). The decision to treat should be individualized in persons with a fracture of the proximal humerus, pelvis, or distal forearm who do not have osteopenia or low BMD [12, 13]. Hazel MS, Elena SL, Sher KL, Carlos EM, Vivian KG, AJ, Neto ES. The clinician's guide to prevention and treatment of osteoporosis. Osteoporos Int. 2021;33(10):5414-7210. doi: 10.1007/h23301-449-52619-d. Epub 2021Feb 12. Erratum in: Osteoporos Int. 2021May 14;: PMID: [id number]; PMCID: [id number]. Electronically authenticated by: KALEIGH SUTHERLAND Date: 05/08/2024 07:57 Dictated By: Kaleigh Sutherland M.D. Signed By: 05/08/24 0800 DD/ 0757 TD/TT: Sagger Preparer: [facility] HealthcareRadiology Study observation (narrative)[facility] HealthcareXR DEXA AXIAL SKELETONOrdered By: Radiologist Radiology on [id number] [place] [facility] Phone: cbc AUTO DIFFon [id number] #0.0 103/ulNormal 0.0-0.1The [facility] CenterComment on above:Performed By: #### TSH #### [facility] [address] [address] [address] Marla VarnerBasophils/100 WBC (Bld)0.1 %Critically low0.2-2.0The [facility] CenterComment on above:Performed By: #### TSH #### [facility] [address] [address] [address] Marla Velasquez #0.3 103/ulNormal0.0-0.7The [facility] CenterComment on above: Performed By: #### TSH #### [facility] [address] [address] [address] Marla Schultzosinophils/100 WBC (Bld)4.6 %Normal0.9-7.0The [facility] Comment on above:Performed By: #### TSH #### [facility] [address] [address] [address] Marla Schultzrythrocyte distribution width (RBC) [Ratio]14.6 %Wzcada71.0-15.0 The [facility] CenterComment on above:Performed By: #### TSH #### [facility] [address] [address] [address] Marla VarnerHematocrit (Bld) [Volume fraction]46.0 %Zdopjk18.0-48.0The [facility] CenterComment on above:Performed By: #### TSH #### [facility] [address] [place] [address] Dr. Marla VarnerHemoglobin (Bld) [Mass/Vol]15.1 g/aTYgiuwd25.0-16.0The [facility] CenterComment on above:Performed By: #### TSH #### [facility] [address] [place] [address] Dr. Marla VarnerIG #0.01 10e3/ulNormal0.00-0.03The [facility] CenterComtr[facility] on above:Performed By: #### TSH #### [facility] [address] [place] [address] Dr. Marla Quezada %0.1 %Normal0.0-0.5The [facility] CenterComment on above: Performed By: #### TSH #### [facility] [address] [place] [address] Dr. Marla Irby #1.3 103/ulNormal1.2-3.8The [facility] CenterComtr[facility] [place] on above:Performed By: #### TSH #### [facility] [address] [place] [address] Dr. Marla Hydemphocytes/100 WBC (Bld)19.7 %Critically low20.5-60.0The [facility] CenterComtr[facility] [place] on above:Performed By: #### TSH #### [facility] [address] [place] [address] Dr. Marla VarnerMANUAL DIFF REQNONormalThe [facility] CenterComment on above: Performed By: #### TSH #### [facility] [address] [place] [address] Dr. Marla Townsend (RBC) [Entitic mass]33.6 nhCtgcww00.7-34.0The [facility] CenterComment on above:Performed By: #### TSH #### [facility] [address] [address] [address] Marla McgrathHC (RBC) [Mass/Vol]32.8 g/oPHxlxat33.9-35.2The [facility] CenterComment on above:Performed By: #### TSH #### [facility] [address] [place] [address] Dr. Marla McgrathV (RBC) [Entitic vol]102.4 fLCritically high81.0-99.0The [facility] CenterComment on above:Performed By: #### TSH #### [facility] [address] [place] [address] Dr. Marla Morales #0.5 103/ulNormal0.3-0.8The [facility] CenterComment on above:Performed By: #### TSH #### [facility] [address] [place] [address] Dr. Marla Messinaocytes/100 WBC (Bld)7.3 %Normal1.7-12.0The [facility] Comment on above:Performed By: #### TSH #### [facility] [address] [place] [address] Dr. Marla Dave #4.6 103/ulNormal1.4-6.5The [facility] CenterComment on above:Performed By: #### TSH #### [facility] [address] [place] [address] Dr. Marla Mcallisterutrophils/100 WBC (Bld)68.2 %Zahuoq50.0-75.0The [facility] CenterComment on above:Performed By: #### TSH #### [facility] [address] [place] [address] Dr. Marla Obrienlet mean volume (Bld) [Entitic vol]9.1 fLCritically low 9.5-13.5The [facility] CenterComment on above:Performed By: #### TSH #### [facility] [address] [place] [address] Dr. Marla VarnerPLT194 103/buYmzklr194-709Oex [facility] CenterComment on above: Performed By: #### TSH #### [facility] [address] [place] [address] Dr. Marla VarnerRBC4.49 106/ulNormal4.20-5.40The [facility] on above:Performed By: #### TSH #### [facility] [address] [place] [address] Dr. Marla VarnerWBC6.7 103/ulNormal4.0-11.0The [facility] CenterComment on above: Performed By: #### TSH #### [facility] [address] [place] [address] Dr. Marla VarnerPROF 14(COMP METB)on 61-13-0861Tipzfyp [Mass/Vol]3.6 g/dLNormal 3.4-5.0The [facility] on above:Performed By: #### URIC, CMP #### [facility] [address] [place] [address] Dr. Marla VarnerAlbumin/Globulin [Mass ratio]1.0 {ratio}NormalThe [facility] on above:Performed By: #### URIC, CMP #### [facility] [address] [place] [address] Dr. Marla Bynum [Catalytic activity/Vol]93 U/ZEonnck89-075Ecg [facility] on above:Performed By: #### URIC, CMP #### [facility] [address] [place] [address] Dr. Marla Altamirano [Catalytic activity/Vol]26 U/FUukdfl49-70Owv [facility] on above:Performed By: #### URIC, CMP #### [facility] [address] [place] [address] Dr. Marla Rowell gap [Moles/Vol]12.3 mmol/LNormalThe [facility] on above:Performed By: #### URIC, CMP #### [facility] [address] [place] [address] Dr. Marla Reyes [Catalytic activity/Vol]20 U/IJtukko41-38Hce Blanca HospitalComment on above:Performed By: #### URIC, CMP #### [facility] [address] [address] [address] Marla VarnerBilirubin [Mass/Vol]0.4 mg/dLNormal0.2-1.0The [facility] Comment on above:Performed By: #### URIC, CMP #### [facility] [address] [place] [address] Dr. Marla VarnerCalcium [Mass/Vol]9.2 mg/dLNormal8.5-10.1The [facility] Comment on above:Performed By: #### URIC, CMP #### [facility] [address] [place] [address] Dr. Marla VarnerChloride [Moles/Vol]102 mmol/LYurvvl30-367Btd [facility] Comment on above:Performed By: #### URIC, CMP #### [facility] [address] [place] [address] Dr. Marla VarnerCO2 [Moles/Vol]32.3 mmol/LCritically high21.0-32.0The [facility] CenterComment on above:Performed By: #### URIC, CMP #### [facility] [address] [place] [address] Dr. Marla VarnerCreatinine [Mass/Vol]0.84 mg/dLNormal0.55-1.02The [facility] CenterComment on above:Performed By: #### URIC, CMP #### [facility] [address] [place] [address] Dr. Marla SchultzGFR-AF MOSOTHO>60Normal>=60The [facility] CenterComment on above:Performed By: #### URIC, CMP #### [facility] [address] [place] [address] Dr. Marla SchultzGFR-NON AF MOSOTHO>60Normal>=60The [facility] CenterComtr[facility] health [place] on above:Performed By: #### URIC, CMP #### [facility] [address] [place] [address] Dr. Marla VarnerGlobulin (S) [Mass/Vol]3.7 g/dLNormalThe [facility] HospitalComment on above:Performed By: #### URIC, CMP #### [facility] [address] [place] [address] Dr. Marla VarnerGlucose [Mass/Vol]114 mg/dLCritically qjum66-349Idg [facility] CenterComment on above:Performed By: #### URIC, CMP #### [facility] [address] [place] [address] Dr. Marla VarnerPotassium [Moles/Vol]4.6 mmol/LNormal3.5-5.1The [facility] Comment on above:Performed By: #### URIC, CMP #### [facility] [address] [place] [address] Dr. Marla VarnerProtein [Mass/Vol]7.3 g/dLNormal6.4-8.2[facility] Comment on above:Performed By: #### URIC, CMP #### [facility] [address] [place] [address] Dr. Marla VarnerSodium [Moles/Vol]142 mmol/TCigxwp898-668Uan [facility] Comment on above:Performed By: #### URIC, CMP #### [facility] [address] [place] [address] Dr. Marla VarnerUrea nitrogen [Mass/Vol]15.0 mg/dLNormal7.0-18.0The [facility] CenterComment on above:Performed By: #### URIC, CMP #### [facility] [address] [place] [address] Dr. Marla Viatl nitrogen/Creatinine [Mass ratio]17.9 mg/mgNoAkron Children's HospitalComment on above:Performed By: #### URIC, CMP #### [facility] [address] [place] [address] Dr. Marla VarnerSEHarsh RATE WESTERGRENon 01-70-2487SIW RATE47 mm/hrCritically high <=30The [facility] CenterComment on above:Performed By: #### SEDR #### [facility] [address] [place] [address] Dr. Marla Leavitt ACID SERUMon 15-20-7297Ozvph [Mass/Vol]3.3 mg/dLNormal 2.6-6.0The [facility] CenterComment on above:Performed By: #### URIC, CMP #### [facility] [address] [place] [address] Dr. Marla FitzgeraldC AUTO DIFFon 83-58-7532PSMZ #0.0 103/ulNormal0.0-0.1The [facility] CenterComment on above:Performed By: #### INSULT #### [facility] [address] [place] [address] Dr. Marla VarnerBasophils/100 WBC (Bld)0.3 %Normal0.2-2.0The [facility] Comment on above:Performed By: #### INSULT #### [facility] [address] [place] [address] Dr. Gutiérrez ChangEO #0.4 103/ulNormal0.0-0.7The [facility] CenterComment on above: Performed By: #### INSULT #### [facility] [address] [place] [address] Dr. Marla Schultzosinophils/100 WBC (Bld)5.8 %Normal0.9-7.0The [facility] Comment on above:Performed By: #### INSULT #### [facility] [address] [place] [address] Dr. Marla Schultzrythrocyte distribution width (RBC) [Ratio]14.8 %Mlvbcq78.0-15.0 The [facility] CenterComment on above:Performed By: #### INSULT #### [facility] [address] [place] [address] Dr. Marla VarnerHematocrit (Bld) [Volume fraction]44.4 %Xoezem19.0-48.0The [facility] CenterComment on above:Performed By: #### INSULT #### [facility] [address] [place] [address] Dr. Marla VarnerHemoglobin (Bld) [Mass/Vol]14.6 g/wRTjgsvh57.0-16.0The [facility] CenterComment on above:Performed By: #### INSULT #### [facility] [address] [address] [address] Marla Quezada #0.02 10e3/ulNormal0.00-0.03The [facility] CenterComment on above:Performed By: #### INSULT #### [facility] [address] [place] [address] Dr. Marla Quezada %0.3 %Normal0.0-0.5The [facility] HospitalComment on above: Performed By: #### INSULT #### [facility] [address] [place] [address] Dr. Marla Irby #1.6 103/ulNormal1.2-3.8The [facility] CenterComment on above:Performed By: #### INSULT #### [facility] [address] [place] [address] Dr. Marla Ibarrahocytes/100 WBC (Bld)21.6 %Bvedpb75.5-60.0The [facility] CenterComment on above:Performed By: #### INSULT #### [facility] [address] [place] [address] Dr. Marla TranUAL DIFF REQNONormalThe [facility] CenterComment on above: Performed By: #### INSULT #### [facility] [address] [place] [address] Dr. Marla Mcgrath (RBC) [Entitic mass]33.8 xiKulpdn81.7-34.0The [facility] HospitalComment on above:Performed By: #### INSULT #### [facility] [address] [place] [address] Dr. Marla Mcgrath (RBC) [Mass/Vol]32.9 g/zPQblywg34.9-35.2The [facility] CenterComment on above:Performed By: #### INSULT #### [facility] [address] [place] [address] Dr. Marla Mcgrath (RBC) [Entitic vol]102.8 fLCritically high81.0-99.0The [facility] CenterComment on above:Performed By: #### INSULT #### [facility] [address] [address] [address] Marla Morales #0.5 103/ulNormal0.3-0.8The [facility] CenterComment on above:Performed By: #### INSULT #### [facility] [address] [place] [address] Dr. Marla Messinaocytes/100 WBC (Bld)6.9 %Normal1.7-12.0The [facility] Comment on above:Performed By: #### INSULT #### [facility] [address] [place] [address] Dr. Marla Dave #4.7 103/ulNormal1.4-6.5The [facility] CenterComment on above:Performed By: #### INSULT #### [facility] [address] [place] [address] Dr. Marla Mcallisterutrophils/100 WBC (Bld)65.1 %Kduqse90.0-75.0The [facility] CenterComment on above:Performed By: #### INSULT #### [facility] [address] [place] [address] Dr. Marla Walden mean volume (Bld) [Entitic vol]9.3 fLCritically low 9.5-13.5The [facility] CenterComment on above:Performed By: #### INSULT #### [facility] [address] [place] [address] Dr. Marla VarnerPLT200 103/mwXlkeqe783-638Mhx [facility] CenterComment on above: Performed By: #### INSULT #### [facility] [address] [place] [address] Dr. Marla VarnerRBC4.32 106/ulNormal4.20-5.40The [facility] CenterComment on above:Performed By: #### INSULT #### [facility] [address] [place] [address] Dr. Marla VarnerWBC7.2 103/ulNormal4.0-11.0The [facility] Clinicment on above: Performed By: #### INSULT #### [facility] [address] [place] [address] Dr. Marla Love T3on 55-23-0534DCGT T32.20 pg/mlLNormal2.18-3.98The [facility] CenterComment on above:Performed By: #### TSH #### [facility] [address] [place] [address] Dr. Marla Love T4on 90-48-7828Rvon T4 [Mass/Vol]1.30 ng/dLNormal0.76-1.46 The [facility] CenterComment on above:Performed By: #### TSH #### [facility] [address] [place] [address] Dr. Marla Solis 14(COMP METB)on 03-79-8683Fckbwuu [Mass/Vol]3.4 g/dLNormal 3.4-5.0The [facility] CenterComment on above:Performed By: #### CMP, URIC #### [facility] [address] [place] [address] Dr. Marla VarnerAlbumin/Globulin [Mass ratio]0.9 {ratio}NormalThe [facility] Clinicment on above:Performed By: #### CMP, URIC #### [facility] [address] [place] [address] Dr. Marla Bynum [Catalytic activity/Vol]92 U/GNuyrsq77-723Wcu [facility] Clinicment on above:Performed By: #### CMP, URIC #### [facility] [address] [place] [address] Dr. Marla Altamirano [Catalytic activity/Vol]17 U/XDujcxl40-92Asj [facility] on above:Performed By: #### CMP, URIC #### [facility] [address] [place] [address] Dr. Marla Rowell gap [Moles/Vol]10.7 mmol/LNormalThe [facility] Comment on above:Performed By: #### CMP, URIC #### [facility] [address] [address] [address] Marla VarnerAST [Catalytic activity/Vol]17 U/ANixszw77-19Sfx [facility] CenterComment on above:Performed By: #### CMP, URIC #### [facility] [address] [place] [address] Dr. Marla VarnerBilirubin [Mass/Vol]0.4 mg/dLNormal0.2-1.0The [facility] Comment on above:Performed By: #### CMP, URIC #### [facility] [address] [place] [address] Dr. Marla VarnerCalcium [Mass/Vol]8.8 mg/dLNormal8.5-10.1The [facility] Comment on above:Performed By: #### CMP, URIC #### [facility] [address] [place] [address] Dr. Marla VarnerChloride [Moles/Vol]101 mmol/JGcwoef40-062Owa [facility] Comment on above:Performed By: #### CMP, URIC #### [facility] [address] [place] [address] Dr. Marla VarnerCO2 [Moles/Vol]32.5 mmol/LCritically high21.0-32.0The [facility] CenterComment on above:Performed By: #### CMP, URIC #### [facility] [address] [place] [address] Dr. Marla VarnerCreatinine [Mass/Vol]0.72 mg/dLNormal0.55-1.02The [facility] CenterComment on above:Performed By: #### CMP, URIC #### [facility] [address] [place] [address] Dr. Marla SchultzGFR-AF MOSOTHO>60Normal>=60The [facility] CenterComment on above:Performed By: #### CMP, URIC #### [facility] [address] [place] [address] Dr. Marla SchultzGFR-NON AF MOSOTHO>60Normal>=60The [facility] CenterComment on above:Performed By: #### CMP, URIC #### [facility] [address] [address] [address] Marla VarnerGlobulin (S) [Mass/Vol]3.8 g/dLNormCoshocton Regional Medical CenterComment on above:Performed By: #### CMP, URIC #### [facility] [address] [address] [address] Marla VarnerGlucose [Mass/Vol]101 mg/hINtiaws46-310Kko [facility] Comment on above:Performed By: #### CMP, URIC #### [facility] [address] [address] [address] Marla VarnerPotassium [Moles/Vol]4.2 mmol/LNormal3.5-5.1The [facility] Comment on above:Performed By: #### CMP, URIC #### [facility] [address] [place] [address] Dr. Marla VarnerProtein [Mass/Vol]7.2 g/dLNormal6.4-8.2The [facility] Comment on above:Performed By: #### CMP, URIC #### [facility] [address] [place] [address] Dr. Marla VarnerSodium [Moles/Vol]140 mmol/OObpsnc342-062Blf [facility] Comment on above:Performed By: #### CMP, URIC #### [facility] [address] [address] [address] Marla VarnerUrea nitrogen [Mass/Vol]11.0 mg/dLNormal7.0-18.0The [facility] CenterComment on above:Performed By: #### CMP, URIC #### [facility] [address] [place] [address] Dr. Marla Vital nitrogen/Creatinine [Mass ratio]15.3 mg/mgNoAkron Children's HospitalComment on above:Performed By: #### CMP, URIC #### [facility] [address] [place] [address] Dr. Marla Noel RATE WESTERGRENon 87-39-0069WUN RATE51 mm/hrCritically high <=30The [facility] CenterComment on above:Performed By: #### SEDR #### [facility] [address] [place] [address] Dr. Marla PattonHocharlene 65-06-7659UOU6.307 uIU/mLNormal0.358-3.740The [facility] on above:Performed By: #### TSH #### [facility] [address] [place] [address] Dr. Marla VarnerURIC ACID SERUMon 25-49-3630Bzyit [Mass/Vol]3.2 mg/dLNormal 2.6-6.0The [facility] CenterComtrinity health [place] on above:Performed By: #### CMP, URIC #### [facility] [address] [place] [address] Dr. Marla VarnerINSULIN FREE AND TOTALon 93-66-6307Hqpa Fyldipn91 uU/mLNormalVan Wert [facility] Hospital on above:Result Comment: Reference Range: Pubertal Children and Adults (fasting): 0 - 17Performed By: #### INSULT #### [facility] [address] [place] [address] Dr. Marla VarnerTotal Rjqmcam53 uU/mLNormalVan Wert [facility] Hospital on above: Result Comment: Non-Diabetic: In the [...] developed and its performance characteristics determined by [employer]. It has not been cleared or approved by the Food and Drug Administration.Performed By: #### INSULT #### [facility] [address] [place] [address] Dr. Marla iFtzgeraldC AUTO DIFFon 09-96-3325SYSZ #0.0 103/ulNormal0.0-0.1The [facility] on above:Performed By: #### TSH #### [facility] [address] [address] [address] Marla VarnerBasophils/100 WBC (Bld)0.3 %Normal0.2-2.0The [facility] Comment on above:Performed By: #### TSH #### [facility] [address] [address] [address] Marla Velasquez #0.2 103/ulNormal0.0-0.7The [facility] CenterComment on above: Performed By: #### TSH #### [facility] [address] [place] [address] Dr. Marla Schultzosinophils/100 WBC (Bld)2.7 %Normal0.9-7.0The [facility] Comment on above:Performed By: #### TSH #### [facility] [address] [place] [address] Dr. Marla Schultzrythrocyte distribution width (RBC) [Ratio]14.8 %Xutonb13.0-15.0 The [facility] CenterComment on above:Performed By: #### TSH #### [facility] [address] [place] [address] Dr. Marla VarnerHematocrit (Bld) [Volume fraction]47.6 %Pmedmg16.0-48.0The [facility] CenterComment on above:Performed By: #### TSH #### [facility] [address] [place] [address] Dr. Marla VarnerHemoglobin (Bld) [Mass/Vol]15.4 g/eFPttgmn82.0-16.0The [facility] CenterComment on above:Performed By: #### TSH #### [facility] [address] [place] [address] Dr. Marla Quezada #0.03 10e3/ulNormal0.00-0.03The [facility] CenterComment on above:Performed By: #### TSH #### [facility] [address] [place] [address] Dr. Marla Quezada %0.4 %Normal0.0-0.5The [facility] HospitalComment on above: Performed By: #### TSH #### [facility] [address] [address] [address] Marla Irby #1.6 103/ulNormal1.2-3.8The [facility] CenterComment on above:Performed By: #### TSH #### [facility] [address] [address] [address] Marla Ibarrahocytes/100 WBC (Bld)21.1 %Lbutzb60.5-60.0The [facility] CenterComment on above:Performed By: #### TSH #### [facility] [address] [place] [address] Dr. Marla Rivas DIFF REQNONormalThe [facility] CenterComment on above: Performed By: #### TSH #### [facility] [address] [place] [address] Dr. Marla Townsend (RBC) [Entitic mass]34.2 pgCritically high26.7-34.0The [facility] CenterComment on above:Performed By: #### TSH #### [facility] [address] [place] [address] Dr. Marla Mcgrath (RBC) [Mass/Vol]32.4 g/cXJluyrt56.9-35.2The [facility] CenterComment on above:Performed By: #### TSH #### [facility] [address] [place] [address] Dr. Marla Mcgrath (RBC) [Entitic vol]105.8 fLCritically high81.0-99.0The [facility] CenterComment on above:Performed By: #### TSH #### [facility] [address] [place] [address] Dr. Marla Morales #0.5 103/ulNormal0.3-0.8The [facility] CenterComment on above:Performed By: #### TSH #### [facility] [address] [place] [address] Dr. Marla Messinaocytes/100 WBC (Bld)7.4 %Normal1.7-12.0The [facility] Comment on above:Performed By: #### TSH #### [facility] [address] [place] [address] Dr. Marla Dave #5.0 103/ulNormal1.4-6.5The [facility] CenterComment on above:Performed By: #### TSH #### [facility] [address] [place] [address] Dr. Marla Mcallisterutrophils/100 WBC (Bld)68.1 %Ncplsk65.0-75.0The [facility] CenterComment on above:Performed By: #### TSH #### [facility] [address] [place] [address] Dr. Marla Walden mean volume (Bld) [Entitic vol]10.5 fLNormal9.5-13.5The [facility] CenterComment on above:Performed By: #### TSH #### [facility] [address] [place] [address] Dr. Marla VarnerPLT207 103/qcRmbqsi132-168Zkc [facility] CenterComment on above: Performed By: #### TSH #### [facility] [address] [place] [address] Dr. Marla VarnerRBC4.50 106/ulNormal4.20-5.40The [facility] CenterComment on above:Performed By: #### TSH #### [facility] [address] [place] [address] Dr. Marla VarnerWBC7.3 103/ulNormal4.0-11.0The [facility] CenterComment on above: Performed By: #### TSH #### [facility] [address] [place] [address] Dr. Marla Love T4on 43-08-6343Gukm T4 [Mass/Vol]1.75 ng/dLCritically high 0.76-1.46The [facility] CenterComment on above:Performed By: #### TSH #### [facility] [address] [place] [address] Dr. Yilan ChangPROF 14(COMP METB)on 54-93-3740Dxwaolz [Mass/Vol]3.7 g/dLNormal 3.4-5.0The [facility] CenterComment on above:Performed By: #### INSULT #### [facility] [address] [place] [address] Dr. Marla VarnerAlbumin/Globulin [Mass ratio]1.0 {ratio}NormalThe [facility] CenterComment on above:Performed By: #### INSULT #### [facility] [address] [place] [address] Dr. Marla GarcíaP [Catalytic activity/Vol]99 U/HIsbrvg31-495Zco [facility] CenterComment on above:Performed By: #### INSULT #### [facility] [address] [place] [address] Dr. Marla GarcíaT [Catalytic activity/Vol]25 U/XLtbseb06-35Wdp [facility] CenterComment on above:Performed By: #### INSULT #### [facility] [address] [place] [address] Dr. Marla Farraron gap [Moles/Vol]15.7 mmol/LNormalThe [facility] Comment on above:Performed By: #### INSULT #### [facility] [address] [place] [address] Dr. Marla VarnerAST [Catalytic activity/Vol]20 U/PIzgfst58-56Srm [facility] CenterComment on above:Performed By: #### INSULT #### [facility] [address] [place] [address] Dr. Marla VarnerBilirubin [Mass/Vol]0.4 mg/dLNormal0.2-1.0The [facility] Comment on above:Performed By: #### INSULT #### [facility] [address] [place] [address] Dr. Marla VarnerCalcium [Mass/Vol]8.9 mg/dLNormal8.5-10.1The [facility] Comment on above:Performed By: #### INSULT #### [facility] [address] [place] [address] Dr. Marla VarnerChloride [Moles/Vol]99 mmol/JClfjjt97-341Ljm [facility] Comment on above:Performed By: #### INSULT #### [facility] [address] [place] [address] Dr. Marla VarnerCO2 [Moles/Vol]25.3 mmol/RSrxqic50.0-32.0The [facility] Comment on above:Performed By: #### INSULT #### [facility] [address] [place] [address] Dr. Marla VarnerCreatinine [Mass/Vol]0.80 mg/dLNormal0.55-1.02The [facility] CenterComment on above:Performed By: #### INSULT #### [facility] [address] [place] [address] Dr. Gutiérrez ChangEGFR-AF MOSOTHO>60Normal>=60The [facility] CenterComment on above:Performed By: #### INSULT #### [facility] [address] [place] [address] Dr. Marla SchultzGFR-NON AF MOSOTHO>60Normal>=60The [facility] CenterComment on above:Performed By: #### INSULT #### [facility] [address] [place] [address] Dr. Marla VarnerGlobulin (S) [Mass/Vol]3.6 g/dLNormalThe [facility] CenterComment on above:Performed By: #### INSULT #### [facility] [address] [place] [address] Dr. Marla VarnerGlucose [Mass/Vol]113 mg/dLCritically wcsk74-470Lwh [facility] CenterComment on above:Performed By: #### INSULT #### [facility] [address] [place] [address] Dr. Marla VarnerPotassium [Moles/Vol]4.0 mmol/LNormal3.5-5.1The [facility] Comment on above:Performed By: #### INSULT #### [facility] [address] [place] [address] Dr. Marla VarnerProtein [Mass/Vol]7.3 g/dLNormal6.4-8.2The [facility] Comment on above:Performed By: #### INSULT #### [facility] [address] [place] [address] Dr. Marla Dowdium [Moles/Vol]136 mmol/EHkenux658-021Dhj [facility] Comment on above:Performed By: #### INSULT #### [facility] [address] [place] [address] Dr. Marla VarnerUrea nitrogen [Mass/Vol]10.0 mg/dLNormal7.0-18.0The [facility] CenterComment on above:Performed By: #### INSULT #### [facility] [address] [place] [address] Dr. Marla Vital nitrogen/Creatinine [Mass ratio]12.5 mg/mgNormalThe [facility] CenterComment on above:Performed By: #### INSULT #### [facility] [address] [place] [address] Dr. Marla Noel RATE WESTERGRENon 61-27-5162WBE RATE34 mm/hrCritically high <=30The [facility] CenterComment on above:Performed By: #### TSH #### [facility] [address] [place] [address] Dr. Marla Joyce 80-28-0613CFW9.152 uIU/mLCritically low0.358-3.740The [facility] CenterComment on above:Performed By: #### TSH #### [facility] [address] [place] [address] Dr. Marla Leavitt ACID SERUMon 69-90-7614Xhgzk [Mass/Vol]3.3 mg/dLNormal 2.6-6.0The [facility] CenterComment on above:Performed By: #### INSULT #### [facility] [address] [place] [address] Dr. Marla Lowe AUTO DIFFon 67-55-5957IGJJ #0.0 103/ulNormal0.0-0.1The [facility] CenterComment on above:Performed By: #### TSH #### [facility] [address] [address] [address] Marla VarnerBasophils/100 WBC (Bld)0.1 %Critically low0.2-2.0The [facility] on above:Performed By: #### TSH #### [facility] [address] [place] [address] Dr. Marla Velasquez #0.4 103/ulNormal0.0-0.7The [facility] CenterComment on above: Performed By: #### TSH #### [facility] [address] [place] [address] Dr. Marla Schultzosinophils/100 WBC (Bld)5.1 %Normal0.9-7.0The [facility] Comment on above:Performed By: #### TSH #### [facility] [address] [place] [address] Dr. Marla Schultzrythrocyte distribution width (RBC) [Ratio]14.5 %Aonzbs23.0-15.0 The [facility] CenterComment on above:Performed By: #### TSH #### [facility] [address] [place] [address] Dr. Marla VarnerHematocrit (Bld) [Volume fraction]45.7 %Nurxny35.0-48.0The [facility] Clinicment on above:Performed By: #### TSH #### [facility] [address] [place] [address] Dr. Marla VarnerHemoglobin (Bld) [Mass/Vol]14.6 g/bRNpgvmk44.0-16.0The [facility] Clinicment on above:Performed By: #### TSH #### [facility] [address] [place] [address] Dr. Marla uQezada #0.03 10e3/ulNormal0.00-0.03The [facility] CenterComtrinity [facility] [place] on above:Performed By: #### TSH #### [facility] [address] [place] [address] Dr. Marla Quezada %0.4 %Normal0.0-0.5The [facility] HospitalComment on above: Performed By: #### TSH #### [facility] [address] [address] [address] Marla Irby #0.9 103/ulCritically low1.2-3.8The [facility] on above:Performed By: #### TSH #### [facility] [address] [address] [address] Marla Ibarrahocytes/100 WBC (Bld)11.3 %Critically low20.5-60.0The [facility] CenterComment on above:Performed By: #### TSH #### [facility] [address] [address] [address] Marla Rivas DIFF REQNONormalThe [facility] CenterComment on above: Performed By: #### TSH #### [facility] [address] [place] [address] Dr. Marla Mcgrath (RBC) [Entitic mass]33.4 hqTpghap54.7-34.0The [facility] CenterComment on above:Performed By: #### TSH #### [facility] [address] [place] [address] Dr. Marla Mcgrath (RBC) [Mass/Vol]31.9 g/rFIwdvil45.9-35.2The [facility] Clinicment on above:Performed By: #### TSH #### [facility] [address] [place] [address] Dr. Marla Mcgrath (RBC) [Entitic vol]104.6 fLCritically high81.0-99.0The [facility] CenterComment on above:Performed By: #### TSH #### [facility] [address] [place] [address] Dr. Marla Morales #0.3 103/ulNormal0.3-0.8The [facility] on above:Performed By: #### TSH #### [facility] [address] [place] [address] Dr. Marla Messinaocytes/100 WBC (Bld)3.9 %Normal1.7-12.0The [facility] Comment on above:Performed By: #### TSH #### [facility] [address] [place] [address] Dr. Marla Dave #6.1 103/ulNormal1.4-6.5The [facility] CenterComment on above:Performed By: #### TSH #### [facility] [address] [place] [address] Dr. Marla Mcallisterutrophils/100 WBC (Bld)79.2 %Critically high43.0-75.0The [facility] CenterComment on above:Performed By: #### TSH #### [facility] [address] [place] [address] Dr. Marla VarnerPlatelet mean volume (Bld) [Entitic vol]10.4 fLNormal9.5-13.5The [facility] CenterComment on above:Performed By: #### TSH #### [facility] [address] [place] [address] Dr. Marla VarnerPLT195 103/khFnwdyp501-084Obg [facility] CenterComment on above: Performed By: #### TSH #### [facility] [address] [place] [address] Dr. Marla VarnerRBC4.37 106/ulNormal4.20-5.40The [facility] CenterComment on above:Performed By: #### TSH #### [facility] [address] [place] [address] Dr. Marla VarnerWBC7.7 103/ulNormal4.0-11.0The [facility] CenterComment on above: Performed By: #### TSH #### [facility] [address] [place] [address] Dr. Marla VarnerPROF 14(COMP METB)on 92-35-2692Pbjzuxl [Mass/Vol]3.3 g/dL Critically low3.4-5.0The [facility] CenterComment on above:Performed By: #### URIC, CMP #### [facility] [address] [place] [address] Dr. Marla VarnerAlbumin/Globulin [Mass ratio]0.8 {ratio}NormalThe [facility] CenterComment on above:Performed By: #### URIC, CMP #### [facility] [address] [place] [address] Dr. Marla Bynum [Catalytic activity/Vol]97 U/ZKeluht00-504Mqz [facility] CenterComment on above:Performed By: #### URIC, CMP #### [facility] [address] [place] [address] Dr. Marla Altamirano [Catalytic activity/Vol]26 U/TGopuso61-97Cbl [facility] CenterComment on above:Performed By: #### URIC, CMP #### [facility] [address] [place] [address] Dr. Marla Rowell gap [Moles/Vol]18.0 mmol/LNormalThe [facility] Comment on above:Performed By: #### URIC, CMP #### [facility] [address] [place] [address] Dr. Marla Reyes [Catalytic activity/Vol]17 U/CThacga05-42Khy [facility] CenterComment on above:Performed By: #### URIC, CMP #### [facility] [address] [place] [address] Dr. Marla VarnerBilirubin [Mass/Vol]0.5 mg/dLNormal0.2-1.0The [facility] Comment on above:Performed By: #### URIC, CMP #### [facility] [address] [place] [address] Dr. Marla VarnerCalcium [Mass/Vol]8.8 mg/dLNormal8.5-10.1The [facility] Comment on above:Performed By: #### URIC, CMP #### [facility] [address] [place] [address] Dr. Marla VarnerChloride [Moles/Vol]100 mmol/XLknnfq50-930Fsw [facility] Comment on above:Performed By: #### URIC, CMP #### [facility] [address] [place] [address] Dr. Marla VarnerCO2 [Moles/Vol]25.3 mmol/YWppzlk61.0-32.0The [facility] Comment on above:Performed By: #### URIC, CMP #### [facility] [address] [place] [address] Dr. Marla VarnerCreatinine [Mass/Vol]0.95 mg/dLNormal0.55-1.02The [facility] CenterComment on above:Performed By: #### URIC, CMP #### [facility] [address] [place] [address] Dr. Marla SchultzGFR-AF MOSOTHO>60Normal>=60The [facility] CenterComment on above:Performed By: #### URIC, CMP #### [facility] [address] [place] [address] Dr. Marla SchultzGFR-NON AF NOMHCWUJ37 mL/min/1.36f0Wcqcsbkxhf low>=60The [facility] CenterComment on above:Performed By: #### URIC, CMP #### [facility] [address] [place] [address] Dr. Marla VarnerGlobulin (S) [Mass/Vol]3.9 g/dLNormalThe [facility] CenterComment on above:Performed By: #### URIC, CMP #### [facility] [address] [place] [address] Dr. Marla VarnerGlucose [Mass/Vol]253 mg/dLCritically aoof77-768Nmh [facility] CenterComment on above:Performed By: #### URIC, CMP #### [facility] [address] [place] [address] Dr. Marla VarnerPotassium [Moles/Vol]4.3 mmol/LNormal3.5-5.1The [facility] Comment on above:Performed By: #### URIC, CMP #### [facility] [address] [place] [address] Dr. Marla VarnerProtein [Mass/Vol]7.2 g/dLNormal6.4-8.2The [facility] Comment on above:Performed By: #### URIC, CMP #### [facility] [address] [place] [address] Dr. Marla VarnerSodium [Moles/Vol]139 mmol/CHybyte908-418Phs [facility] Comment on above:Performed By: #### URIC, CMP #### [facility] [address] [place] [address] Dr. Marla VarnerUrea nitrogen [Mass/Vol]13.0 mg/dLNormal7.0-18.0The [facility] CenterComment on above:Performed By: #### URIC, CMP #### [facility] [address] [place] [address] Dr. Marla Vital nitrogen/Creatinine [Mass ratio]13.6 mg/mgNormalThe [facility] CenterComment on above:Performed By: #### URIC, CMP #### [facility] [address] [place] [address] Dr. Marla Noel RATE WESTERGRENon 57-42-8802OMP RATE35 mm/hrCritically high <=30The [facility] CenterComment on above:Performed By: #### TSH #### [facility] [address] [place] [address] Dr. Marla VarnerURIC ACID SERUMon 67-74-6251Dnzqu [Mass/Vol]3.6 mg/dLNormal 2.6-6.0The [facility] CenterComment on above:Performed By: #### URIC, CMP #### [facility] [address] [place] [address] Dr. Marla VarnerXR DEXA BONE DENSITYon 20-48-6211AN DEXA BONE DENSITYEXAMINATION: XR DEXA BONE DENSITY, [...] Electronically authenticated by: KALEIGH SUTHERLAND Date: 2022-01-19 11:23[facility] HospitalCNOVSPon [id number] (SP) Office (GYNOSA) --------EUNICE CASTILLO ([id number]) 1950 FDate Time Provider Department10/21/18 10:40 AM [...] this office note were sent to:[place] [address]?CC:Yimi Montemayor DO (PCP)Referring Provider: BLAINE THOMPSON [[id number]]Allergies As of Date: 10/21/2018 Noted Allergy ReactionPENICILLINS [...] (VIT B-12) 1,0* Inject 1,000 mcg intramuscula* [id number] MG CAPSULE Take 100 mg by mouth [...] More...Encounter Status:Closed by BLAINE THOMPSON MD on 10/23/18[facility] [id number] mass conc HNO ID: [id number]: Blaine Maldonadoervice: (none)Author Type: PhysicianType: Progress NotesFiled: [...] of this office note were sent to:[place] [address]?CC:Yimi Montemayor DO (PCP)[facility] RehabilitationCNOVon [id number] Visit (GYNOSA) --------EUNICE CASTILLO ([id number]) 1950 FDate Time Provider Department04/15/18 8:00 AM [...] I advised her to follow with her iron pellet tester f or routine health and gynmaintenance exams3. I will see her in 6 monthsBlaine Thompson MD, MPH25 min spent with the patient with >50% face to face counselingA letter and a copy of this office note were sent to:[place] [address]?CC:Yimi Montemayor DO (PCP)Referring Provider: BLAINE THOMPSON [[id number]]Allergies As of Date: 04/15/2018 Noted Allergy ReactionPENICILLINS [...] More... Status:Closed by BLAINE THOMPSON MD on 04/15/18[facility]ESSon 52-78-7839Pgglduu mass concHNO ID: [id number]: Blaine Maldonadoervice: (none)Author Type: PhysicianType: Progress NotesFiled: [...] I advised her to follow with her iron pellet tester for routine health andgyn maintenance exams3. I will see her in 6 monthsBlaine Thompson MD, MPH25 min spent with the patient with >50% face to face counselingA letter and a copy of this office note were sent to:[place] [address]?CC:Yimi Montemayor DO (PCP)NormalTri[facility] Vital Signs Date TimeVital SignValuePerforming XalpveetcEwnxfcsh50-90-9608 12:05-0500Body mass index (BMI) [Ratio]40.99 kg/q7Xodelb FurWhatClinic.comng DO Work Phone: [facility] Cthwus47-22-3048 12:05-0500Body .2 [degF]Brandonalfred Shah DO Work Phone: [facility] Mvkhhy87-68-3095 12:05-0500Body ddioxu319.32 kgBrandon Hardinng DO Work Phone: [facility] Pxdptc71-28-3410 12:05-0500Diastolic blood sqjilzwv30 mm[Hg]Brandon Beanlong DO Work Phone: [facility] Dwbofu58-25-8323 12:05-0500Heart rate 79 /Silviais Genevalong DO Work Phone: [facility] Cletsx07-71-8660 12:05-0500 Respiratory rate18 /Silviais Genevalong DO Work Phone: [facility]11-04-2025 12:05-9674MnK8% (BldA) [Mass fraction]94 %Brandon Hardinng DO Work Phone: [facility] Fcqyok22-53-0085 12:05-0500Systolic blood azsakutz214 mm[Hg]Brandon Hardinng DO Work Phone: [facility] Seugyd65-85-6421 15:38-0400Body svjapwrcblg08.1 [degF]Brandon Hardinng DO Work Phone: [facility] Extxdn82-86-3038 15:38-0400Diastolic blood owcjzdsf44 mm[Hg]Brandon Hardinng DO Work Phone: [facility] Ugxjqn41-66-5464 15:38-0400Heart rate 67 /Silviais Wilfredng DO Work Phone: [facility] Kwwqzm67-90-7571 15:38-0400 Respiratory rate18 /Silviais Wilfredng DO Work Phone: [facility]10-31-2025 15:38-2902UqC9% (BldA) [Mass fraction]94 %Brandon Beanlong DO Work Phone: [facility] [facility]10-31-2025 15:38-0400Systolic blood cdhfpavy501 mm[Hg]Brandon Shah DO Work Phone: [facility]09-29-2025 10:59-0400Body .1 cmLisa Aichholz PHYSICAL TRAINER-C Work Phone: [facility]09-29-2025 10:59-0400 Body mass index (BMI) [Ratio]40.4 kg/m2Lisa Aichholz PHYSICAL TRAINER-C Work Phone: [facility]09-29-2025 10:59-0400 Body urwjirjwuse03.7 [degF]Brunilda Aichholz PHYSICAL TRAINER-C Work Phone: [facility]09-29-2025 10:59-0400 Body rxppeq399.27 kgLisa Aichholz PHYSICAL TRAINER-C Work Phone: [facility]09-29-2025 10:59-0400 Diastolic blood iqjyuxyq81 mm[Hg]Brunilda Aichholz PHYSICAL TRAINER-C Work Phone: [facility]09-29-2025 10:59-0400 Heart rate63 /minLisa Aichholz PHYSICAL TRAINER-C Work Phone: [facility]09-29-2025 10:59-0400 Respiratory rate18 /minLisa Aichholz PHYSICAL TRAINER-C Work Phone: [facility]09-29-2025 10:59-0400 SaO2% (BldA) [Mass fraction]97 %Brunilda Aichholz PHYSICAL TRAINER-C Work Phone: [facility]09-29-2025 10:59-0400 Systolic blood eteywzto994 mm[Hg]Brunilda Aichholz PHYSICAL TRAINER-C Work Phone: [facility]03-05-2025 10:30-0500 Body .6 cmLisa Aichholz PHYSICAL TRAINER Work Phone: [facility] HospitalJbxcjktvxw39-09-2734 10:30-0500Body mass index (BMI) [Ratio]41.95 kg/m2Lisa Juarezz PHYSICAL TRAINER Work Phone: [facility] HospitalJqybitkhbd29-87-7722 10:30-0500Body temperature 98.29 [degF]Brunilda Juarezz PHYSICAL TRAINER Work Phone: [facility] HospitalGmmielzdjc20-25-0628 10:30-0500Body kslfob191.86 kgLisa Deonholz PHYSICAL TRAINER Work Phone: [facility] HospitalUwzztxhcum83-56-7160 10:30-0500Diastolic blood mm[Hg]Brunilda Juarezz PHYSICAL TRAINER Work Phone: [facility] HospitalUnubimidls91-57-5491 10:30-0500Heart rate74 /min Brunilda Juarezz PHYSICAL TRAINER Work Phone: [facility] HospitalQcwjvefobg65-31-9868 10:30-0500Respiratory rate22 /minLisa Juarezz PHYSICAL TRAINER Work Phone: [facility] HospitalFpebxmztki82-47-3646 10:30-6706ZpW4% (BldA) [Mass fraction]95 %Brunilda Juarezz PHYSICAL TRAINER Work Phone: [place] [address]Pmdmrjwqft32-15-4940 10:30-0500Systolic blood tekqwkyl311 mm[Hg]Brunilda Juarezz PHYSICAL TRAINER Work Phone: [facility] HospitalZczdiwrpfc40-76-9598 09:17-0400Body mass index (BMI) [Ratio]41.76 kg/m2Lisa Deonholz PHYSICAL TRAINER Work Phone: [place] [address]Dmdsvhooat40-72-9938 09:17-0400Body temperature 97.3 [degF]Brunilda Deonholz PHYSICAL TRAINER Work Phone: [place] [address]Guylfmknjl31-62-9924 09:17-0400Body .36 kgLisa Deonholz PHYSICAL TRAINER Work Phone: [place] [address]Znkcjrmubp65-28-8410 09:17-0400Diastolic blood lkqoxlmf23 mm[Hg]Brunilda Goodrichcoretta PHYSICAL TRAINER Work Phone: no[facility] CenterNwviwqtkmw94-06-0231 09:17-0400Heart rate79 /min Brunilda Chavarriating PHYSICAL TRAINER Work Phone: no[facility] CenterWqxxafauyi21-83-9151 09:17-6584JlF6% (BldA) [Mass fraction]94 %Brunilda Chavarriating PHYSICAL TRAINER Work Phone: no[facility] CenterNstpvmuqcw76-46-2334 09:17-0400Systolic blood fhnukfkn391 mm[Hg]Brunilda Chavarriafrankiecoretta PHYSICAL TRAINER Work Phone: no[facility] Encounters Encounter DateEncounter TypeCare ProviderFacilityStart: 08-21-2025 End: 90-64-0487vacsnlxsrnUlkekv Christina HardinUrban Interns DO Work Phone: [facility] MedicineComment on above:Closed stable burst fracture of second lumbar vertebra with routine healing, subsequent encounter (Primary Dx); Primary hypertensionStart: 08-17-2025 End: 02-49-7545uuzkbtkuyvSvhjnt Christina Beanlong DO Work Phone: [facility] - Family MedicineComment on above:Closed stable burst fracture of second lumbar vertebra with routine healing, subsequent encounter (Primary Dx); Primary hypertension; Acute kidney injury; Hyperkalemia; Hypothyroidism, unspecified type; Class 3 severe obesity due to excess calories with serious comorbidity and body mass index (BMI) of40.0 to 44.9 in adult ([facility]-HCC); Cigarette smokerStart: 07-16-2025 End: 47-22-8428iwgelxwiqtOity J Aichholz PHYSICAL TRAINER-C Work Phone: [facility] Work Phone: Start: 07-16-2025 End: 12-37-1622Kdjifwa encounter procedureBrunilda Rose NP-C-[facility] Family Medicine S[place] Work Phone: Start: 05-27-0500Hchvnqs encounter procedureLisa Aichholz PHYSICAL TRAINER-C Work Phone: [facility] Campustart: 01-23-2025 End: 49-01-0172Fyhtrkgpn Result EncounterGeneric External Data ProviderNOMS External Department UnsolicitedStart: 01-23-2025 End: 58-04-7147Fhzsjpaer Result EncounterGeneric External Data ProviderNOMS External Department UnsolicitedStart: 12-20-2024 End: 55-07-6773Xxhzlg flowsheetBrunilda Rose PHYSICAL TRAINER Work Phone: noms CWM FMStart: 12-20-2024 End: 07-12-8422Wcsncx flowsheetBrunilda Rose PHYSICAL TRAINER Work Phone: [facility] CWM FMStart: 12-20-2024 End: 21-31-5084Nzdengt encounter procedureLisa Rose PHYSICAL TRAINER Work Phone: [facility] FMComment on above:Encounter for subsequent annual wellness visit (AWV) in Medicare patient (Primary Dx); Morbid (severe) obesity due to excess calories ([facility]); Body mass index (BMI) 40.0-44.9, adult (CMS/HCC); Rheumatoid arthritis with rheumatoid factor, unspecified (CMS/HCC); Malignant neoplasm of vagina (CMS/HCC); Polyneuropathy; Primary hypertension (CMS/HCC); Gastroesophageal reflux disease without esophagitis; Idiopathic chronic gout of multiple sites without tophus; Lower extremity edema; Age-related osteoporosis without current pathological fracture (CMS/HCC); Hypothyroidism, unspecified type ([facility]/HCC); Chronic gout without tophus, unspecified cause, unspecified site; Hyperglycemia; Cigarette nicotine dependence without complicationStart: 12-20-2024 End: 22-18-3835mhrwinkpvlWUVJ JUAREZZNot AvailableStart: 10-16-2024 End: 42-37-4139Ewzgyfics Result EncounterGeneric External Data ProviderNOMS External Department UnsolicitedStart: 10-16-2024 End: 76-56-2653Boqakojwi Result EncounterGeneric External Data ProviderNOMS External Department UnsolicitedStart: 06-22-2024 End: 76-20-3888Obqueecfq Result EncounterLisa Ramseyhholz PHYSICAL TRAINER Work Phone: noms External Department UnsolicitedStart: 06-22-2024 End: 72-50-7954Ytbmqateh Result EncounterLisa Rose PHYSICAL TRAINER Work Phone: noms External Department UnsolicitedStart: 06-12-2024 End: 46-84-0849Kaccin flowsheetBrunilda Rose PHYSICAL TRAINER Work Phone: noms CWM FMStart: 06-12-2024 End: 25-62-6836Uhbplb flowsheetBrunilda Rose PHYSICAL TRAINER Work Phone: noms CWM FMStart: 06-12-2024 End: 02-15-8186Aeobtc outpatient visit 25 minutesBrunilda Rose PHYSICAL TRAINER Work Phone: noms CWM FMComment on above:Primary hypertension (CMS/HCC) (Primary Dx); Morbid (severe) obesity due to excess calories (CMS/HCC); Body mass index (BMI) 40.0-44.9, adult (CMS/HCC); Malignant neoplasm of vagina (CMS/HCC); Gastroesophageal reflux disease without esophagitis; Lower extremity edema; Hypothyroidism, unspecified type (CMS/HCC); Tobacco user; Hyperglycemia; Polyneuropathy; Rheumatoid arthritis with positive rheumatoid factor, involving unspecified site (CMS/HCC); Other fatigueStart: 06-12-2024 End: 21-22-9104jswjhpwgeaZQXE DEONKAIot AvailableStart: 05-08-2024 End: 90-72-1082Rjiwyszmy Result EncounterGeneric External Data ProviderNOMS External Department UnsolicitedStart: 05-08-2024 End: 87-90-5032Rjkqktpxp Result EncounterGeneric External Data ProviderNOMS External Department UnsolicitedStart: 81-05-8209Aynourk encounter procedureBrunilda Rose PHYSICAL TRAINER Work Phone: noms HealthcareStart: 44-61-1848Hwomhkuof encounter Zohra Levi [facility] - Medical OncologyStart: 01-12-2023 End: 06-44-9879cidyjwvfseYKY BRUNILDA AICSHAHBAZZFacility:T8Jmbwy: 10-13-2022 End: 00-93-6595cijflfnskqWGB BRUNILDA AICHHOLZFacility:B9Awnjj: 07-21-2022 End: 64-70-4538aftjaulznjYPZ BRUNILDA AICHHOLZFacility:S2Okfum: 04-21-2022 End: 86-65-4987pvelqcprsmUH DOCTOR MISCFacility:I9Jgkhr: 01-19-2022 End: 19-36-4748ezhdkbhrxoDID BRUNILDA AICHHOLZFacility:B4Cmkqy: 10-21-2018 End: 27-80-5310Smdrbyu encounter procedureHAIProMedica [facility] Start: 04-15-2018 End: 70-60-3457Yckhnqx encounter procedureHAIProMedica Defiance Regional Hospital Procedures DateProcedureProcedure DetailPerforming ClinicianStart: 02-32-7649QLK CBC WITH AUTO DIFFGeneric External Data ProviderStart: 42-44-4719SubzrlaglatHbup Aichholz PHYSICAL TRAINER Work Phone: Start: 39-83-2666EMT CBC WITH AUTO DIFFGeneric External Data ProviderStart: 31-83-8207BPH HEMOGLOBIN E1WQnkh Milton PHYSICAL TRAINER Work Phone: Start: 22-83-0991IP DEXA AXIAL SKELETONGeneric External Data ProviderStart: 83-59-9522YjahzuipievGjod Aichholz PHYSICAL TRAINER Work Phone: Plan of Treatment DateCare ActivityDetailAuthorStart: 03-05-2026Medicare Annual Wellness (AWV) Medicare Annual Wellness (AWV)[facility] HealthcareStart: 33-17-0737Rudinxltz for malignant neoplasm of breastMammogramNOMS HealthcareStart: 17-69-2360Maoda screening for proteinDiabetes: Urine Protein ScreeningNOMS HealthcareComment on above:Postponed from 1969 (Other Medical Reasons)Start: 06-25-2025 End: 26-12-1374Bnmopbd encounter qhcdvolax29/08/2025 9:20 AM EDT Office Visit [facility] [address] [place] [address] Brunilda Rose, RHEA [address] [place] [address] [facility] CW FMStart: 47-70-0332ONTBG-19 Vaccine ( season)COVID-19 Vaccine ()[facility] SystemStart: 72-67-7072Nempkjcjf vaccinationNOME HealthcareStart: 78-11-6749Cacufknuh vaccinationInfluenza Vaccine (#1)NOMS HealthcareComment on above:Postponed from 06/18/2024 (Patient Refused)Start: 12-20-2024 End: 78-69-7511Vxjvpbi encounter iptstfrbe02/05/2025 10:30 AM EST Office Visit [facility] [address] [place] [address] Brunilda Rose NP [address] [place] [address] Polyneuropathy (Primary Dx); Morbid (severe) obesity due to excess calories ([facility]); Body mass index (BMI) 40.0-44.9, adult ([facility]); Rheumatoid arthritis with rheumatoid factor, unspecified ([facility]/HCC); Malignant neoplasm of vagina ([facility]); Primary hypertension (CMS/HCC); Gastroesophageal reflux disease without esophagitis; Idiopathic chronic gout of multiple sites without tophus; Lower extremity edema; Age-related osteoporosis without current pathological fracture (CMS/HCC); Hypothyroidism, unspecified type ([facility]); Encounter for subsequent annual wellness visit (AWV) [...] Annual Wellness (AWV)Medicare Annual Wellness (AWV)[facility] HealthcareStart: 75-67-9619Fgisafvgo for malignant neoplasm of colonColorectal Cancer Screening NOMS HealthcareComment on above:Postponed from 1950 (Patient Refused) Start: 12-12-2024 End: 73-32-6592Nvcwufj encounter jaeganixq43/25/2025 10:00 AM EST Office Visit NOMRick [facility]WK[facility] [address] [place] [address] Brunilda Rose NP [address] [place] [address] FABIOLA HAWKINS FMStart: 28-93-7249Phviixpn screeningDiabetes: Retinopathy ScreeningNOMS HealthcareComment on above:Postponed from 1960 (Other Medical Reasons)Start: 10-61-3199Bwvoe screening for proteinDiabetes: Urine Protein ScreeningNOMS HealthcareComment on above:Postponed from 1969 (Other Patient Reasons)Start: 87-33-7415Xtjunjure vaccinationInfluenza Vaccine (#1)[facility] HealthcareStart: 85-67-9314Ijmwuesfx for malignant neoplasm of breast MammogramNOMS HealthcareStart: 06-12-2024 End: 57-12-5000Lgdkqsk encounter nxetfwold60/26/2024 9:20 AM EDT Office Visit [facility] [address] [place] [address] Brunilda Rose NP [address] [place] [address] Morbid (severe) obesity due to excess calories (CMS/HCC); Body mass index (BMI) 40.0-44.9, adult (CMS/HCC); Malignant neoplasm of vagina (CMS/HCC)[facility] CWM FMComment on above:Morbid (severe) obesity due to excess calories (CMS/HCC); Body mass index (BMI) 40.0-44.9, adult (CMS/HCC); Malignant neoplasm of vagina (CMS/HCC)Start: 26-49-7958Uiykk BMI ScreeningAdult BMI ScreeningProAvita Health System [facility] SystemStart: 61-13-3725FUPXW-19 Vaccine ()COVID-19 Vaccine ( season)[facility] SystemStart: 68-14-5770Oxrtegdav vaccinationInfluenza VaccineToledo Hospital SystemStart: 63-33-2873Naat Risk ScreeningFall Risk ScreeningCone Health Alamance Regionaltart: 60-61-3356SKD ( or age 60+ yrs) (1 - Risk 60-74 years 1-dose series)RSV ( or age 60+ yrs) (1 - Risk 60-74 years 1-dose series)[facility] SystemStart: 01-71-4438Rdiznqykvdftvt of varicella zoster vaccineZoster (Shingles) Vaccine (1 of 2)[facility] SystemStart: 97-17-3619FAdN,Tdap and Td Vaccines (1 - Tdap)DTaP,Tdap and Td Vaccines (1 - Tdap)[facility] SystemStart: 59-44-2288Thfrk screening for proteinDiabetes: Urine Protein ScreeningBarn[facility]Jewish [facility] County HospitalStart: 76-39-9789Xmmya BMI Follow Up PlanAdult BMI Follow Up PlanToledo Hospital SystemStart: 65-82-3818Vthdkgqcod Screening Depression ScreeningToledo Hospital SystemStart: 61-41-5564Iaukenr Screening Tobacco ScreeningToledo Hospital SystemStart: 89-57-6745Litswmyj screening Diabetes: Retinopathy ScreeningBL[facility] MOUNTAIN [facility], INC. HealthcareStart: 51-02-2238Skehoqdfph A1c measurementDiabetes: Hemoglobin U3GBOMTBarnes-Jewish West County HospitalStart: 1950Medicare Annual Wellness VisitMedicare Annual Wellness VisitCone Health Alamance Regionaltart: 98-51-8938Nfgkjuyaw for malignant neoplasm of colonBLUE MOUNTAIN H[facility]ITAL, INC. Healthcare Immunizations Immunization DateImmunizationNotesCare LxztuopnUuirpffb23-69-7864Khnrgwswq, Seasonal, Quadrivalent, AdjuvantedLisa Aichholz PHYSICAL TRAINER Work Phone: [phone] [place], [place] [address]Wiexazmcfa83-84-8567KUGN-QAW-6 (COVID-19) vaccine, mRNA, spike protein, LNP, PF, india-sucrose, 30 mcg/0.3 mLLisa Aichholz PHYSICAL TRAINER Work Phone: [phone] [place], [place] [address]Mfzigafxhi97-58-9489bjlifwppn virus vaccine, unspecified formulationLisa Aichholz PHYSICAL TRAINER Work Phone: [phone] [place], [place] [address]Qyqpsyqmrz62-41-0006Fcuwkgaxk, Seasonal, Quadrivalent, AdjuvantedLisa Aichholz PHYSICAL TRAINER Work Phone: [phone] [place], [place] [address]Cvteghyddw29-18-0536ORPC-GGD-9 (COVID-19) vaccine, mRNA, spike protein, LNP, bivalent, preservative free, 30 mcg/0.3 mL dose, india-sucrose formulationLisa Aichholz PHYSICAL TRAINER Work Phone: [phone] [place], [place] [address]Nxbnumvqjg16-97-1409pkzukvkep virus vaccine, unspecified formulationPaula [facility]11-24-2021Pfizer Purple Cap SARS-CoV-2 VaccinationLisa Aichholz PHYSICAL TRAINER Work Phone: [phone] [place], [place] [address]Eysjdzvxwt19-43-7197bzmfdbxfcbmq polysaccharide vaccine, 23 valentLisa Aichholz PHYSICAL TRAINER Work Phone: [phone] [place], [place] [address]Lqficzyqxz83-44-0836Jicnonpmm, Seasonal, Quadrivalent, AdjuvantedLisa Aichholz PHYSICAL TRAINER Work Phone: [phone] [place], [place] [address]Utwozrghlc28-56-1430Ndobbe Purple Cap SARS-CoV-2 VaccinationLisa Aichholz PHYSICAL TRAINER Work Phone: [phone] [place], [place] [address]Nmwopjdnvv37-79-4497Ewmcaj Purple Cap SARS-CoV-2 VaccinationLisa Aichholz PHYSICAL TRAINER Work Phone: [facility] HospitalSmmfkynlwx79-89-2609Maevbogwm, Seasonal, Quadrivalent, AdjuvantedLisa Aicholz PHYSICAL TRAINER Work Phone: [facility] HospitalHimkdgahaf92-99-9627zklvpjjpxxvt conjugate vaccine, 13 valentLisa Aichholz PHYSICAL TRAINER Work Phone: [facility] Payers DatePayer CategoryPayerPolicy [id number] Health InsuranceMEDICAL MUTUAL [id number] Indemnity [employer] [id number] 2015Medicare [id number] [id number] [id number] 1960 [id number] [id number]3 [id number] 2.16.840.1.061892.3.57[id number] 2.16.840.1.211541.3.57[id number] 2.16.840.1.883989.3.57[id number] 2.16.840.1.201418.3.57[id number] 2.16.840.1.527931.3.57[id number] 2.16.840.1.775202.3.57[id number] 2.16.840.1.632453.3.57[id number] 2.16.840.1.969645.3.579.2.1259Private Health InsuranceAdvanced Care Hospital of [facility] [id number] Social History DateTypeDetailFacilityStart: 10-31-2019 End: 84-69-2013Lmegeku smoking status NHISSmokes tobacco dailyProAvita Health System Bucyrus Hospital SystemHistory of tobacco useCigarette SmokerToledo Hospital SystemStart: 10-31-2019 End: 75-37-5035Btbohzvoiv smoked current (pack per day) - Yfilynvc6JCHJ[address] [place], [place] [address]Start: 93-94-8317Sedsbae use and exposureSmokeless tobacco non-user [facility] SystemStart: 11-13-2020 End: 36-93-5174Bcmbxsf intakeLifetime non-drinker (finding)[facility] SystemStart: 08-16-2019 End: 22-57-7878Xxhaecd Use Disorder Identification Test - Consumption [AUDIT-C] [facility] HospitalStart: 92-11-1684Ixfekgvso of Alcohol ConsumptionNeverToledo Hospital SystemStart: 09-22-3068Imx Assigned At BirthNot on [facility] Health CareWithin the last year, have you been afraid of your partner or ex-partner? NoNOMS HealthcareDo you belong to any clubs or organizations such as baptism groups, unions, fraTopcom Europe or athletic groups, or school groups?YesNOMS HealthcareAre you now , , , , never or living with a partner?MarriedNOMS HealthcareHow often to you have a drink containing alcohol?NeverNOMS HealthcareDo you feel stress - tense, restless, nervous, or anxious, or unable to sleep at night because yourmind is troubled all the time - these days [OSQ]Only a littleNOMS Healthcare(I/We) worried whether (my/our) food would run out before (I/we) got money to buy more.Never trueBarnes-Jewish West County HospitalStart: 33-48-1708Jopieru Commentcaffine: 4 cups dailyBarnes-Jewish West County HospitalStart: 51-09-3283EsiZzuenl (finding)[facility] Start: 95-96-6604Bpf Assigned At [facility] Functional Status WgslNbxlilybbmRvywhnUduryewv26-08-6731Uprwvrxwy depression scale (GDS).short version [facility] HighlandsJtnrhheruq61-66-8973Rfnweyz Health Questionnaire 2 item (PHQ- 2) [Reported][facility] HospitalCjzciaenrh54-14-0701Spb difficult have these problems made it for you to do your work, take care of things at home, or get along with other people?Somewhat difficult 12/20/2024 10:52 AM EST Nan Styles MA Somewhat difficultCritical access hospital Clinical Notes 10-13-2023 to 08-21-2025 Note Date & ZymsCcghUudityit28-97-1130 History of Present illness Narrative* Brandon Shah, - 08/21/2025 12:05 PM EST Images from the original note were not included. Patient Name: Eunice Castillo Date of : 1950 Date of Service: 08/21/2025 [place] [facility] Visit: Acute Visit Subjective Eunice Castillo is a 74 y.o. female seen today at [facility] facility for therapy visit. Eunice is not having a good day. She has been participating in therapy and walking in unit with assistance. She had not used any oxycodone pain medication until this morning. She also had a muscle relaxer after that due to continued pain. Her pain was very bad. She has pain across her low back and it radiates into both upper legs/thighs. She is not incontinent of bowel or bladder. She was hoping to go home today. She doesn't have any pain laying down but does when she tries to sit up. The pain in her back feels different. She wants to go to the hospital for x-rays. She did not schedule a follow up appointment with the neurosurgeon since she didn't need surgery. She is also worried that her blood pressure is running high. She doesn't have any chest pain or shortness of breath. Allergies: Feldene [piroxicam] and Penicillins Code Status: FULL CODE BP 144/72 Pulse 79 Temp 36.2 C (97.2 F) Resp 18 Wt 108.3 kg (238 lb 12.8 oz) SpO2 94% BMI 40.99 kg/m Physical Exam Vitals reviewed. Exam conducted with a head sawyer present (). Constitutional: General: She is not in acute distress. Appearance: She is obese. She is not ill-appearing. Comments: Laying in bed on right side Cardiovascular: Rate and Rhythm: Normal rate and regular rhythm. Heart sounds: Normal heart sounds. No murmur heard. Pulmonary: Effort: Pulmonary effort is normal. No respiratory distress. Breath sounds: No wheezing, rhonchi or rales. Musculoskeletal: Lumbar back: Spasms, tenderness and bony tenderness present. Decreased range of motion. Back: Neurological: General: No focal deficit present. Mental Status: She is alert and oriented to person, place, and time. Psychiatric: Mood and Affect: Mood normal. Behavior: Behavior normal. Thought Content: Thought content normal. Judgment: Judgment normal. Summary / Assessment / Plan 1. Closed stable burst fracture of second lumbar vertebra with routine healing, subsequent encounter 2. Primary hypertension I'm going to check an xray of her lumbar spine. I encouraged her to stay on top of the pain. Her blood pressure was up a couple times but has been normal at other times. She is in pain which can increase blood pressure. I recommend to monitor it for now. Continue therapy to reach maximum improvement. All medications reviewed and are medically necessary. Addendum May have an ice pack Q4hrs prn pain. ELECTRONICALLY SIGNED BY: Brandon Shah DO documented in this encounterOhio State University [facility]10-31-2025 History of Present illness Narrative* Brandon Shah DO - 08/17/2025 3:38 PM EDT Patient Name: Eunice Castillo Date of : 1950 Date of Service: 08/17/2025 [place] [facility] [place] of Visit: Admission H&P Subjective Eunice Castillo is a 74 y.o. female seen today at [facility] facility for admission H&P. Eunice presents today to [facility] where she was admitted for lumbar L2 burst. This happened last Wednesday morning about 2:00 a.m.. She will using gets up early Wes doing work around those. She will reach around the closet cut something with the scissors and felt a sudden pain in her low back. The pain waxed and waned during the day then worsened in the evening so she finally called EMS and they took her to the hospital. She was seen in the ER and then sent home. They did give her some medications but the pain was still very excruciating so she went back to the hospital and they admitted her. She was seen by a back specialist to looked at her films and de termine that she did not need surgery. They recommended a back brace for her to wear whenever she is up and ambulating. She did have some constipation at the hospital due to the pain medication. He denies any new problems. She does have some tingling in her right leg. She has had this the whole time. She was given Voltaren gel to for the arthralgias on her hands. It works well. The pain medication is also working well but she doesn't like the side effects. She is a cigarette smoker so would like a patch to use while here. She has no diagnosis of COPD. She has no known heart failure issues. She usually ambulates without any assistive devices but she does have a 4 prong walker at home when her gout flares up. She lives at home with her . Past Medical History: Diagnosis Date Disease of thyroid gland Gout Hypertension Hypothyroidism Obesity Osteoarthritis Psoriasis RA (rheumatoid arthritis) ([facility]) Shortness of breath Visual impairment glasses for reading and distance Vulvar dysplasia Past Surgical History: Procedure Laterality Date APPENDECTOMY CHOLECYSTECTOMY COLONOSCOPY HYSTERECTOMY DC REMOVAL OF OVARY(S) TONSILLECTOMY WIDE LOCAL EXCISION VULVAR N/A 11/07/2019 Performed by Darek Peralta MD at [facility] Family History Problem Relation Age of Onset Anesthesia problems Neg Hx Allergies: Feldene [piroxicam] and Penicillins Code Status: FULL CODE The following portions of the patient's history were reviewed and updated as appropriate: allergies, current medications, past family history, past medical history, past social history, past surgicalhistory, problem list, and medication reconciliation was completed including current medication andpost discharge medication. Review of Systems Musculoskeletal: Positive for arthralgias, back pain and gait problem. Objective BP 130/72 Pulse 67 Temp 36.7 C (98.1 F) Resp 18 SpO2 94% Physical Exam Vitals reviewed. Constitutional: General: She is not in acute distress. Appearance: She is obese. She is not ill-appearing. Comments: In bed HENT: Head: Normocephalic. Right Ear: External ear normal. Left Ear: External ear normal. Eyes: General: No scleral icterus. Extraocular Movements: Extraocular movements intact. Conjunctiva/sclera: Conjunctivae normal. Cardiovascular: Rate and Rhythm: Normal rate and regular rhythm. Pulses: Normal pulses. Heart sounds: Normal heart sounds. No murmur heard. Pulmonary: Effort: Pulmonary effort is normal. No respiratory distress. Breath sounds: Normal breath sounds. No wheezing, rhonchi or rales. Abdominal: General: Bowel sounds are normal. Palpations: Abdomen is soft. Tenderness: There is no abdominal tenderness. Musculoskeletal: Cervical back: Neck supple. Lymphadenopathy: Cervical: No cervical adenopathy. Neurological: General: No focal deficit present. Mental Status: She is alert and oriented to person, place, and time. Psychiatric: Attention and Perception: Attention normal. Mood and Affect: Mood and affect normal. Speech: Speech normal. Behavior: Behavior normal. Behavior is cooperative. Thought Content: Thought content normal. Judgment: Judgment normal. Summary / Assessment / Plan 1. Closed stable burst fracture of second lumbar vertebra with routine healing, subsequent encounter 2. Primary hypertension 3. Acute kidney injury 4. Hyperkalemia 5. Hypothyroidism, unspecified type 6. Class 3 severe obesity due to excess calories with serious comorbidity and body mass index (BMI)of 40.0 to 44.9 in adult ([facility]) 7. Cigarette smoker Admit to [facility] for therapy. Continue medications from the hospital. Full code. Monitor labs regularly. We will get a BNP on Mondays and Fridays and a CBC on Mondays. There is no lab day on . Good rehab potential. Plan on discharge to home able to. ELECTRONICALLY SIGNED BY: Brandon Shah DO documented in this encounterOhioHealth Grove City Methodist HospitalMobly [id number] History of Present illness Narrative* NAN STYLES - 12/20/2024 10:30 AM EST 138/80- wrist [...] Any Hospitalizations in the last year:none Specialist:Rheumatology, AUTO GLASS WORKER HCPOA/Living Will:yes Concerns: Thyroid Problem Presents for [...] compliance problems. There is no history of CAD/MA, heart failure or PVD. Identifiable causesof hypertension [...] 12/13/2023 Heel spur, left 12/13/2023 HTN (hypertension) ([facility]) 12/13/2023 Hyperglycemia 12/13/2023 Hypothyroid ([facility]) 12/13/2023 Lower extremity edema 12/13/2023 Morbid obesity with body mass index (BMI) of 40.0 to 49.9 ([facility]) 12/13/2023 Non-compliant patient 12/13/2023 Osteoarthritis 12/13/2023 Osteoporosis ([facility]) 12/13/2023 Polyneuropathy 12/13/2023 RA (rheumatoid arthritis) ([facility]) 12/13/2023 Tobacco user 12/13/2023 Vaginal cancer ([facility]) 12/13/2023 Vitamin B12 deficiency 12/13/2023 Past Surgical [...] Body mass index (BMI) 40.0-44.9, adult (CMS/HCC) Chronic idiopathic gout of multiple sites Takes [...] gabapentin (Neurontin) 300 MG capsule HTN (hypertension) ([facility]) Please check blood pressure daily and record DASH diet Limit caffeine Take medication as directed Contact office if chest pain, pressure, dizziness, shortness of breath, swelling legs Recommend slow position changes Current meds: lisinopril, and lasix Relevant Medications lisinopril 10 MG tablet Malignant neoplasm of vagina ([facility]) Osteoporosis ([facility]) DEXA was 05/10, -3.0, Current med fosamax Lower extremity edema Lasix Limit sodium, elevate feet as much as possible Check labs yearly and prn Relevant Medications furosemide (Lasix) 40 MG tablet potassium chloride CR (Klor-Con) 10 MEQ ER tablet Morbid (severe) obesity due to excess calories ([facility]) Discussed with patient their BMI (actual, verses recommended). We have also discussed lifestyle modifications: attempts to perform physical activity as chronic conditions allow, also to monitor dietary intake: increasing protein/fruits/veggies and lowering carb intake (unless contraindicated). Limit sodas, juices, and sugary drinks. Hypothyroid ([facility]) Current med on levothyroxine Check labs yearly, prn dose changes, changes in symptoms Relevant Medications levothyroxine (Synthroid, Levoxyl) 150 MCG tablet Rheumatoid arthritis with rheumatoid factor, unspecified ([facility]) Continue with dr cardenas Current meds: humira, [...] of the risks of continued smoking: stroke, MA, all forms of cancer, lung disease, and [...] of the risks of continued smoking: stroke, MA, all forms of cancer, lung disease, and [...] Problem(s): Rheumatoid arthritis with rheumatoid factor, unspecified ([facility]) Continue with dr cardenas Current meds: humira, [...] - 12/20/2024 6:47 AM ESTAssociated Problem(s): Osteoporosis ([facility]) DEXA was 05/10, -3.0, Current med fosamax [...] intraepithelial neoplasia III) 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 w AUTO GLASS WORKER/onc * Brunilda Rose NP - 12/20/2024 6:45 [...] 12/20/2024 6:44 AM ESTAssociated Problem(s): HTN (hypertension) ([facility]) Please check blood pressure daily and record [...] as well OARRS reviewed documented in this encounterBarnes-Jewish West County [id number] History of Present illness Narrative* Brunilda Rose [...] 06/12/2024 11:21 AM EDTAssociated Problem(s): HTN (hypertension) ([facility]) Stable at this time No med dose [...] 12/13/2023 Heel spur, left 12/13/2023 HTN (hypertension) ([facility]) 12/13/2023 Hyperglycemia 12/13/2023 Hypothyroid ([facility]) 12/13/2023 Lower extremity edema 12/13/2023 Morbid obesity with body mass index (BMI) of 40.0 to 49.9 ([facility]) 12/13/2023 Non-compliant patient 12/13/2023 Osteoarthritis 12/13/2023 Osteoporosis ([facility]) 12/13/2023 Polyneuropathy 12/13/2023 RA (rheumatoid arthritis) ([facility]) 12/13/2023 Tobacco user 12/13/2023 Vaginal cancer ([facility]) 12/13/2023 Vitamin B12 deficiency 12/13/2023 Past Surgical [...] Visit Body mass index (BMI) 40.0-44.9, adult ([facility]) Gastroesophageal reflux disease without esophagitis Polyneuropathy Would like to increase gabapentin to 300mg BID Relevant Medications gabapentin (Neurontin) 300 MG capsule HTN (hypertension) ([facility]) - Primary Stable at this time No med dose change Relevant Medications lisinopril 10 MG tablet Malignant neoplasm of vagina ([facility]) Continue with Shipping Technician/Onc Lower extremity edema Relevant Medications potassium chloride CR (Klor-Con) 10 MEQ ER tablet furosemide (Lasix) 40 MG tablet Morbid (severe) obesity due to excess calories ([facility]) Hypothyroid ([facility]) Fatigue, takes thyroid meds daily as directed Relevant Medications levothyroxine (Synthroid, Levoxyl) 150 MCG tablet Tobacco user RA (rheumatoid arthritis) ([facility]) Relevant Medications folic acid (Folvite) 1 MG [...] Malignant neoplasm of vagina (CMS/HCC) Continue with Shipping Technician/Onc documented in this encounterBarnes-Jewish West County [id number] Miscellaneous Notes* Telephone Encounter - Zohra Oates - 10/13/2023 2:33 PM EST CALLED TO CANCEL FOLLOW UP WITH ANTONIETTA SHE DOES NOT WANT TO RESCHEDULE AT THIS TIME documented in this encounterOhio State University [facility]12[facility]23 Telephone encounter Note* Telephone Encounter - Zohra Oates - 10/13/2023 2:33 PM EST CALLED TO CANCEL FOLLOW UP WITH ANTONIETTA SHE DOES NOT WANT TO RESCHEDULE AT THIS TIME [facility] Diagnosis Primary hypertension (CMS/HCC)- Primary Unspecified [...] Other fatigue documented in this encounter [facility]* Diagnosis Encounter for subsequent annual wellness [...] mass index (BMI) of 40.0 to 49.9 ([facility]) Hypothyroidism, unspecified type (CMS/HCC) Rheumatoid arthritis with positive rheumatoid factor, involving unspecified site (CMS/HCC) Allergic rhinitis, unspecified seasonality, unspecified trigger Gastroesophageal reflux disease without esophagitis Esophageal reflux Primary hypertension (CMS/HCC)- Primary Unspecified essential hypertension Morbid (severe) obesity due to excess calories ([facility]) Body mass index (BMI) 40.0-44.9, adult ([facility]) Malignant neoplasm of vagina (CMS/HCC) Malignant neoplasm of vagina Gastroesophageal reflux disease without esophagitis Esophageal reflux Lower extremity edema Edema Hypothyroidism, unspecified type ([facility]) Tobacco user Tobacco use disorder Hyperglycemia Other abnormal glucose Polyneuropathy Unspecified hereditary and idiopathic peripheral neuropathy Rheumatoid arthritis with positive rheumatoid factor, involving unspecified site (CMS/HCC) Other fatigue Encounter for subsequent annual wellness visit (AWV) in Medicare patient- Primary Morbid (severe) obesity due to excess calories ([facility]) Body mass index (BMI) 40.0-44.9, adult ([facility]) Rheumatoid arthritis with rheumatoid factor, unspecified (CMS/HCC) Malignant neoplasm of vagina ([facility]) Malignant neoplasm of vagina Polyneuropathy Unspecified hereditary and idiopathic peripheral neuropathy Primary hypertension ([facility]) Unspecified essential hypertension Gastroesophageal reflux disease without esophagitis Esophageal reflux Idiopathic chronic gout of multiple sites without tophus Lower extremity edema Edema Age-related osteoporosis without current pathological fracture ([facility]) Hypothyroidism, unspecified type ([facility]) Chronic gout without tophus, unspecified cause, unspecified site Hyperglycemia Other abnormal glucose Cigarette nicotine dependence without complication documented in this encounter [facility]* Diagnosis Onset Date Resolution Status Admit Date Cigarette nicotine dependence acuteSept2024 10:25amGERD without esophagitisacuteSept2024 10:25amHTN (hypertension)acuteSept2024 10:25amHypothyroidism acuteSept2024 10:25amLower extremity edemaacuteSept2024 10:25amMorbid (severe) obesity due to excess caloriesacuteSept2024 10:25amRheumatoid arthritis with rheumatoid factor, unspecifiedacuteSept 2025 10:25am [facility] Work Phone: Evaluation note* Diagnosis Closed stable burst fracture of second lumbar vertebra with routine healing, subsequent encounter- Primary Primary hypertension Unspecified essential hypertension Acute kidney injury Hyperkalemia Hyperpotassemia Hypothyroidism, unspecified type Class 3 severe obesity due to excess calories with serious comorbidity and body mass index (BMI) of40.0 to 44.9 in adult ([facility]) Cigarette smoker Tobacco use disorder documented [facility] this encounter [facility] Diagnosis Closed stable burst fracture of second lumbar vertebra with routine healing, subsequent encounter- Primary Primary hypertension Unspecified essential hypertension documented in this encounter [facility] SystemInstructionsNot on filedocumented in this encounter [facility] SystemInstructionsNot on filedocumented in this encounter [facility] SystemInstructionsNot on filedocumented in this encounter [facility] SystemReason for referral (narrative)No reason for referral information availableMain Campus Medical Center Work Phone: Summary Purpose Family [...] section and content) DATE CREATED AUTHOR 10/27/2018 [facility] DATE CREATED AUTHOR AUTHOR'S ORGANIZ ATION 01/15/2023 [facility] DATE CREATED AUTHOR AUTHOR'S ORGANIZ ATION 12/22/2024 [facility] EPIC Care Teams (unrecognized sec tion and content) Team MemberRelationshipSpecialtyStart DateEnd Date Brunilda Rose, PUBLIC INTERVIEWER-HAIRSPRING STAKER [address] [place] [address] [facility]CP - [facility] [place] Qgibqirwwxmy21/30/19Team MemberRelationshipSpecialtyStart DateEnd Date Jerry Shah MD [address] [place] [address] [facility] - [facility]12/06/23 Brunilda Rose NP [address] [place] [address] Nurse PractitionerCandler [facility] Hospital10/18/22Team MemberRelationshipSpecialtyStart DateEnd Date Jerry Shah MD [address] [place] [address] PCP - [facility] Medicine12/06/23 Brunilda Rose NP [address] [place] [address] Nurse PractitionerCandler [facility] Hospital10/18/22Team MemberRelationshipSpecialtyStart DateEnd Date Jerry Shah MD [address] [place] [address] PCP - [facility]High [facility] Medicine12/06/23 Brunilda Rose NP [address] [place] [address] Nurse PractitionerHigh Point Hospital Medicine10/18/22Team MemberRelationshipSpecialtyStart DateEnd Date Jerry Shah MD [address] [place] [phone] PCP - [facility]12/06/23 Brunilda Rose NP [address] [place] [address] Nurse PractitionerCandler [facility] Hospital10/18/22Team MemberRelationshipSpecialtyStart DateEnd Date Jerry Shah MD [address] [place] [phone] PCP - [facility]12/06/23 Brunilda Rose NP [address] [place] [address] Nurse PractitionerCandler [facility] Hospital10/18/22Team MemberRelationshipSpecialtyStart DateEnd Date Jerry Shah MD [address] [place] [address] PCP - [facility]12/06/23 Brunilda Rose NP [address] [place] [address] Nurse PractitionerCandler County Hospital10/18/22 Team Status: Active Member Role Status Dates Brunilda Rose NP-C Primary Care Provider Active Team Status: Inactive Member Role Status Dates Brunilda Rose NP-Driss Primary Care Provider Active Start: July 16, 2025 End: July 16, 2025Brunilda Rose NP-CAttenwernersville [facility] hospital ProviderActiveStart: July 16, 2025 End: July 16, 2025Team MemberRelationshipSpecialtyStart DateEnd Date Jerry Shah MD PCP - [facility]Faboston [facility]12/06/23 Brunilda Rose NP Nurse PractitionerHigh [facility] Hospital Medicine10/18/22Team MemberRelationshipSpecialtyStart DateEnd Date Brunilda Rose APRN-GENI PCP - GeneralNurse Dhwabeeflodf74/30/19Team MemberRelationshipSpecialtyStart DateEnd Date Brunilda Rose APRN-GENI PCP - GeneralNurse Devmwvtgjeox16/30/19 Reason for Visit (unrecogniz ed section and [...] BE BASED ON THE PRIMARY CLINICAL RECORDS. [facility] [employer] [facility]. provides no warranty or guarantee of the accuracy or completeness of information in this document.
--- NOTE | 2025-09-20 11:28 | PM.CN ---
Consult Note: HPI Data of Consult Patient: known to practice within the last 3 years Consult date: 09/20/25 Requesting Physician: Lilliana Walden NP Primary Care Provider: Non-Staff Physician, MD Consult Narrative Reason for consult: low back pain Narrative: Eunice Castillo a 74 year old female with moderate to severe low back pain post L2 compression fracture 07/2025 presents for urgent evaluation. Pt noting severe right arm pain and immobility, pt reporting significant loss of function over the last week secondary to RA flare up. she has failed to benefit from medrol dose pack. Patient reminded that her referral was for low back pain and we redirected. Pt noting over the last month her low back pain has not improved, shes attempting home PT as tolerated but finding difficulty. pt finds moderate relief to percocet 5-325mg TID PRN moderate to severe pain, notes most days she takes up to twice daily and occasionally TID PRN. pt denies side effects. notes moderate relief with each dose. previously NS deemed her non surgical for her burst compression fracture but she has not recently been evaluated. Pt reports numbness to right thigh without tingling or weakness. utilizing walker and wheelchair for mobility. cc:: CC: Lilliana Walden NP Review of Systems ROS Musculoskeletal Reports: back pain, extremity pain and joint pain PFSH PFSH Medical History Diverticulitis ?K57.92 - Diverticulitis of intestine, part unspecified, without perforation or abscess without bleeding (ICD-10) Osteoarthritis (arthritis due to wear and tear of joints) ?M19.90 - Unspecified osteoarthritis, unspecified site (ICD-10) Vaginal cancer ?C52 - Malignant neoplasm of vagina (ICD-10) Hyperthyroidism ?E05.90 - Thyrotoxicosis, unspecified without thyrotoxic crisis or storm (ICD-10) Gout ?M10.9 - Gout, unspecified (ICD-10) Hypertension ?I10 - Essential (primary) hypertension (ICD-10) Rheumatoid arthritis ?M06.9 - Rheumatoid arthritis, unspecified (ICD-10) Surgical History History of partial hysterectomy ?Z90.711 - Acquired absence of uterus with remaining cervical stump (ICD-10) Social History Within the past year, how often did you have a drink containing alcohol: never Score interpretation: A score less than 3 is consistent with normal alcohol consumption. 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 Highest level of school completed/degree received: high school graduate Are you now , , , , never or living with a partner: In a typical week, how many times do you talk on the telephone with family, friends, or neighbors: 3 or more times per week How often do you get together with friends or relatives: 3 or more times per week How often do you attend latter day or zoroastrian services: never Do you belong to any clubs or organizations such as latter day groups unions, [employer] or athletic groups, or school groups: no Total score: 2 Score interpretation: A score of greater than or equal to 2 indicates the lowest level of social isolation. Little interest or pleasure in doing things: several days Feeling down, depressed, or hopeless: several days Feel stressed/tense/nervous/anxious/difficulty sleeping: not at all Gender Identity: female Meds Home Medications and Allergies Home Medications ?Medication ?Instructions ?Recorded ?Confirmed ?Type alendronate 70 mg tablet 70 mg PO QWEEK 08/10/25 08/13/25 History allopurinol 300 mg tablet 300 mg PO DAILY 08/10/25 08/13/25 History colchicine 0.6 mg tablet 0.6 mg PO DAILY 08/10/25 08/13/25 History folic acid 1 mg tablet 1 mg PO DAILY 08/10/25 08/13/25 History furosemide 40 mg tablet 40 mg PO DAILY 08/10/25 08/13/25 History gabapentin 300 mg capsule 300 mg PO BID 08/10/25 08/13/25 History levothyroxine 150 mcg tablet 150 mcg PO DAILY 08/10/25 08/13/25 History lisinopril 10 mg tablet 10 mg PO DAILY 08/10/25 08/13/25 History methotrexate sodium 2.5 mg tablet 25 mg PO QWEEK 08/10/25 08/13/25 History omeprazole 20 mg capsule,delayed 20 mg PO DAILY 08/10/25 08/13/25 History release prednisone 5 mg tablet 5 mg PO DAILY 08/10/25 08/13/25 History docusate sodium 100 mg capsule 100 mg PO DAILY 08/13/25 08/13/25 History (Colace) amlodipine 5 mg tablet 5 mg PO QD #0 tabs 08/17/25 Rx cyclobenzaprine 10 mg tablet 5 mg (1/2 x 10 mg) PO TID #0 tabs 08/17/25 Rx nicotine 14 mg/24 hr daily 14 mg transdermal QD #0 ea 08/17/25 Rx transdermal patch oxycodone 5 mg tablet 5 mg PO Q4H PRN Pain #15 tabs 08/17/25 Rx polyethylene glycol 3350 17 gram 17 g PO QD PRN Constipation #0 ea 08/17/25 Rx oral powder packet sennosides 8.6 mg-docusate sodium 1 tab PO BID #0 tabs 08/17/25 Rx 50 mg tablet oxycodone-acetaminophen 5 mg-325 1 tab PO TID PRN pain #70 tabs 09/20/25 Rx mg tablet (Percocet) Allergies Allergy/AdvReac Type Severity Reaction Status Date / Time Penicillins Allergy Intermediate swelling Verified 08/10/25 00:36 piroxicam (From Feldene) Allergy Intermediate swelling Verified 08/10/25 00:36 Exam Constitutional Documenting provider has reviewed patient's vital signs: yes Common normals: oriented x3 and alert General appearance: anxious and disheveled Nutritional appearance: obese HENMT Common normals: normocephalic, hearing grossly normal bilaterally and moist oral mucous membranes Head and scalp: normocephalic Eye Common normals: PERRL Pupil: PERRL Neck & C-Spine Common normals: full ROM General: normal visual inspection Chest Common normals: inspection of chest normal Respiratory Common normals: normal respiratory effort, no retractions and no use of accessory muscles GI Other: significant distress secondary to nausea. pt reports sensitivity to lights in our office. shes endorsing GI upset with diarrhea as well. Neuro Common normals: oriented x3 Sensorium/orientation: alert Psych Common normals: mental status grossly normal, thought process normal, cooperative, affect normal, speech normal and activity/motor behavior normal Speech: normal speech Thought process: normal thought process Results Additional Findings Additional findings: If on a controlled substance or opioids, I have checked an [place]AR[place] report on this patient and there are no aberrancies noted in the prescribing history.??If on a controlled substance or opioid a drug screen was completed and reviewed within the last year, and if there has not been a drug screen completed we ordered one today to monitor higher risk, state monitored pain medication use. As part of providing excellent, safe, comprehensive care, the following was completed at our patient's visit: 1. A medication reconciliation and review to ensure accurate knowledge of current/active medications, including asking our patients to inform us about any cszt-rsm-xrokdjp medications or herbal remedies/nutritional supplements/alternative remedies. 2. A review to specifically ensure our patients have had annual screening for screening for depression, screening for tobacco use, and screening for unhealthy alcohol use. For concerning screenings had a discussion with the patient, provided patient education, and recommended follow-up with primary care provider when appropriate. If patient noted with a risk of falling, they received education on strength, gait, and balance training to prevent future risk of falling. Portions of this note may have been carried over from the previous visit and updated as appropriate. Please note this office utilizes paper charting in addition to the electronic medical record. A list of current medications, vitals, and PMH is available there as the clinical staff outside of myself do not have access to [employer] charting during the clinic day operations. As part of providing quality comprehensive care the current medications, vitals, and PMH were reviewed in the paper chart. Assessment and Plan Assessment and Plan (1) Burst fracture of lumbar vertebra: (2) Lumbar compression fracture: (3) Low back pain: (4) Chronic use of opiate drug for therapeutic purpose: Plan Physical exam completed as noted above minimal signs of lumbar radiculopathy, unfortunately pt has moderate pain from non-healing compression fracture. I recommend pt be evaluated by her NS again, she states she was told to f/u with them but will not drive to [place] for an appointment due to her pain. I do not recommend a lumbar BERT for her pain due to her significant loss of bone density and minimal lumbar radiculopathy/discogenic pain. I have offered to take over her percocet 5-325mg tid prn moderate to severe pain 70 tabs/month to assist in bridging the gap in care, but have recommended she be evaluated by NS prior to injection. Case reviewed with Dr Leigh who agrees with plan of care. pt to f/u in 1 month
--- OUTSIDE RECORDS SUMMARY | 2025-10-30 19:00 | XMS_ITS | Clinical Summary ---
Author Organization Unknown Care Team Providers Care Interactive Media Project Manager Name Role Phone SYMONE GILLESPIE, LUKAS Unavailable Unavailable KATHERIN FRENCHN, PRIYANKA Unavailable Unavailable JOHANA ELECTROSLAG WELDING MACHINE OPERATOR, MAURO Unavailable Unavailable REG OT, QASIM Unavailable Unavailable JAZLYN PT, KELVIN Unavailable Unavailable FILIPE RN, ROLANDO Unavailable Unavailable DEAN RN, DERICK Unavailable Unavailable DORIAN QUIGLEY Unavailable Unavailable Payers Payer Name Policy Type Policy Number Effective Date Expira tion Date MEDICARE - [place] - PDGM [id number] Problems Condition Name Condition Details Condition Category Status Onset Date Resolution Date Last Treatment Date Treating Clinician Comments STABLE BURST FX UNSP LUM VERTEBRA, SUBS FOR FX W ROUTN HEAL Xbcpai1579-59-21 00:00:00ESSENTIAL (PRIMARY) PSUWNNTGOHVLEgyhdc3917-86-91 00:00:00RHEUMATOID ARTHRITIS, HHKBJUUNEEGEnbdmj5484-31-54 00:00:00ACUTE KIDNEY FAILURE, HFXUASBZLSFHkyvpe7714-45-56 00:00:00SPINAL STENOSIS, LUMBAR REGION WITHOUT NEUROGENIC DDWMVHuipko4914-60-79 00:00:00GASTRO-ESOPHAGEAL REFLUX DISEASE WITHOUT GIXJCMWZNUXKdeahf5362-66-79 00:00:00DVTRCLI OF INTEST, PART UNSP, W/O PERF OR ABSCESS W/O ENQKBYiajzo2540-39-37 00:00:00HYPERKALEMIAActive 2024-10-18 00:00:00THYROTOXICOSIS, UNSP WITHOUT THYROTOXIC CRISIS OR STORMActive 2024-10-18 00:00:00GOUT, XQRIAEHZCPFAklawi6838-44-21 00:00:00UNSPECIFIED OSTEOARTHRITIS, UNSPECIFIED YNYDYobsle4962-94-70 00:00: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 KBKSBBxxmpw4366-25-60 00:00:00LONG TERM (CURRENT) USE OF SYSTEMIC GGXRAUAYPrbquu6488-74-36 00:00: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 XZDIBPVzwict0153-99-79 00:00:00Problems related to health jquhtefaVtgxfk2823-28-48 00:00:00 Allergies, Adverse Reactions, Alerts Allergy Name Allergy Type Status Severity Reaction(s) Onset Date Inactive Date Treating Clinician Comments FELDENE Propensity to adverse reactions Active 2025-09-02 11:18:02PENICILLINPropensity to adverse kcjagwkvlSporfw9390-14-11 11:18:11 Vital Signs Vital Name Observation Time Observation Value Commen ts Temperature 2025-09-17 09:23:00.000 97.9 [degF] Vgiuxeequkx0538-60-15 14:32:00.63689.5 [degF]Bkqnebvhgog2252-35-01 12:12:00.000 97.8 [degF]Jpickomufhu2923-55-70 11:25:00.41229.5 [degF]Yzevsnwuvvx5660-30-10 11:10:00.59879.9 [degF]BMI (%)2025-09-02 11:47:18.04367 kg/c6Htkbsj4873-17-79 11:46:59.46290 [in_us]Cegbr9810-30-89 09:23:00.81901 /nshThldd8026-90-39 14:32:00.10296 /eszCvxwz5465-41-03 12:12:00.08731 /dpiVcizv6310-04-37 12:56:00.62042 /xhnMfjbg7808-48-12 11:25:00.93345 /dzxHnfjf3106-70-62 11:10:00.77643 /minO2 Saturation (%)2025-09-11 14:32:00.02119 %O2 Saturation (%) 2025-09-04 12:56:00.33991 %O2 Saturation (%)2025-09-04 11:25:00.36044 %O2 Saturation (%)2025-09-02 11:10:00.56989 %Qqcolwuhywuv1609-49-88 09:23:00.24632 /hbpJqauazgnhyyv4327-74-11 14:32:00.37330 /hiiZcjjgxacemxx1428-52-49 12:12:00.11404 /myiHbhbfqthhsym0650-87-22 11:25:00.01201 /minRespirations 2025-09-02 11:10:00.25853 /minWeight (lbs)2025-09-02 11:47:18.888173 [lb_av] Systolic Blood Ufcxhnqu6502-62-09 09:23:00.032849 mm[Hg]Systolic Blood Pressure 2025-09-11 14:32:00.793678 mm[Hg]Systolic Blood Arhkdohw0654-24-79 12:12:00.000 136 mm[Hg]Systolic Blood Liwiefpr0208-85-25 12:56:00.763264 mm[Hg]Systolic Blood Hzglknzm4163-71-52 11:25:00.595264 mm[Hg]Systolic Blood Wtsqvanh6585-88-82 11:10:00.612524 mm[Hg]Diastolic Blood Ayznzjxb8254-08-41 09:23:00.80762 mm[Hg] Diastolic Blood Mxbpwuhn3004-39-70 14:32:00.80052 mm[Hg]Diastolic Blood Pressure 2025-09-10 12:12:00.18829 mm[Hg]Diastolic Blood Rzyfozuv4077-44-45 12:56:00.000 68 mm[Hg]Diastolic Blood Kczxcmbl2018-14-55 11:25:00.27573 mm[Hg]Diastolic Blood Fezpkszx6101-62-39 11:10:00.72900 mm[Hg] Plan of Treatment Planned Activity Planned Date Details Comments Future Scheduled Test SKILLED NURSE TO EVALUATE PATIENT, IDENTIFY PRIMARY AND CO-MORBID CONDITIONS CODED PER CODING GUIDELINES, AND DEVELOP PATIENT SPECIFIC PLAN OF CARE THAT INCLUDES PATIENT GOAL FOR HOME HEALTH. PLAN OFCARE TO INCLUDE 3 PRN VISIT(S) FOR OASIS DATA COLLECTION/COMPREHENSIVE ASSESSMENT AT TIMEPOINTS PERFEDERAL REGULATIONS. THIS INCLUDES VISITS FOR FERMIN, RECERT, SCIC, AND/OR DC. [code = SKILLED NURSE TO EVALUATE PATIENT, IDENTIFY PRIMARY AND CO-MORBID CONDITIONS CODED PER CODING GUIDELINES, AND DEVELOP PATIENT SPECIFIC PLAN OF CARE THAT INCLUDES PATIENT GOAL FOR HOME HEALTH. PLAN OF CARE TO INCLUDE3 PRN VISIT(S) FOR OASIS DATA COLLECTION/COMPREHENSIVE ASSESSMENT AT TIMEPOINTS PER FEDERAL REGULATIONS. THIS INCLUDES VISITS FOR FERMIN, RECERT, SCIC, AND/OR DC.]Future Scheduled TestSKILLED NURSE TO REVIEW PATIENT MEDICATIONS (PRESCRIPTION/OTC). INSTRUCT PATIENT/CAREGIVER ON ALL MEDICATIONS INCLUDING PURPOSE, WHEN TO TAKE, IMPORTANCE OF MEDICATION ADHERENCE, MONITORING OF EFFECTIVENESS, ADVERSE DRUG REACTIONS, POSSIBLE SIDE EFFECTS, AND WHEN TO NOTIFY AGENCY OR PHYSICIAN/PROVID ER OF ANY CONCERNS. [code = SKILLED NURSE TO REVIEW PATIENT MEDICATIONS (PRESCRIPTION/OTC). INSTRUCT PATIENT/CAREGIVER ON ALL MEDICATIONS INCLUDING PURPOSE, WHEN TO TAKE, IMPORTANCE OF MEDICATION ADHERENCE, MONITORING OF EFFECTIVENESS, ADVERSE DRUG REACTIONS, POSSIBLE SIDE EFFECTS, AND WHEN TO NOTIFY AGENCY OR PHYSICIAN/PROVIDER OF ANY CONCERNS.]Future Scheduled TestPATIENT HAS A RISK OF HOSPITALIZATION AND ED USE. SKILLED NURSE TO ESTABLISH SUPPORT MEASURES TO MINIMIZE RISK OF HOSPITALIZATION AND ED USE, AND INSTRUCT PATIENT/CAREGIVER ON METHODS TO REDUCE AVOIDABLE HOSPITALIZATION AND ED USE. [code = PATIENT HAS A RISK OF HOSPITALIZATION AND ED USE. SKILLED NURSE TO ESTABLISH SUPPORT MEASURES TO MINIMIZE RISK OF HOSPITALIZATION AND ED USE, AND INSTRUCT PATIENT/CAREGIVER ON METHODS TO REDUCE AVOIDABLE HOSPITALIZATION AND ED USE.]Future Scheduled TestSKILLED NURSE TO PROVIDE INSTRUCTION TO PATIENT/CAREGIVER RELATED TO DISCHARGE PLANNING. [code = SKILLED NURSE TO PROVIDE INSTRUCTION TO PATIENT/CAREGIVER RELATED TO DISCHARGE PLANNING.]Future Scheduled TestSKILLED NURSE TO PERFORM ENVIRONMENTAL SAFETY RISK ASSESSMENT AND FALL RISK ASSESSMENT AND PROVIDE INSTRUCTION TO IMPLEMENT ENVIRONMENTAL SAFETY AND FALL PREVENTION STRATEGIES THROUGHOUT THE CERTIFICATION PERIOD. SKILLED NURSE WILL MAINTAIN SITUATIONAL AWARENESS AND WILL NOTIFY CLINICAL DESKTOP OPERATOR AND PHYSICIAN/PROVIDER WITH ANY CHANGE IN CONDITION. [code = SKILLED NURSE TO PERFORM ENVIRONMENTAL SAFETY RISK ASSESSMENT AND FALL RISK ASSESSMENT AND PROVIDE INSTRUCTION TO IMPLEMENT ENVIRONMENTAL SAFETY AND FALL PREVENTION STRATEGIES THROUGHOUT THE CERTIFICATION PERIOD. SKILLED NURSE WILL MAINTAIN SI TUATIONAL AWARENESS AND WILL NOTIFY CLINICAL DESKTOP OPERATOR AND PHYSICIAN/PROVIDER WITH ANY CHANGE IN CONDITION.]Future Scheduled TestSKILLED NURSE FOR OBSERVATION AND ASSESSMENT OF PATIENT S PAIN LEVEL AND EFFECTIVENESS OF PAIN MANAGEMENT REGIMEN. SKILLED NURSE TO INSTRUCT PATIENT/CAREGIVER REGARDING PHARMACOLOGIC AND NON-PHARMACOLOGIC PAIN CONTROL MEASURES. SKILLED NURSE TO REPORT TO PHYSICIAN IF PAIN LEVEL IS OUTSIDE OF ESTABLISHED PARAMETERS. [code = SKILLED NURSE FOR OBSERVATION AND ASSESSMENT OF PATIENT S PAIN LEVEL AND EFFECTIVENESS OF PAIN MANAGEMENT REGIMEN. SKILLED NURSE TO INSTRUCT PATIENT/CAREGIVER REGARDING PHARMA COLOGIC AND NON-PHARMACOLOGIC PAIN CONTROL MEASURES. SKILLED NURSE TO REPORT TO PHYSICIAN IF PAIN LEVEL IS OUTSIDE OF ESTABLISHED PARAMETERS.]Future Scheduled TestSKILLED NURSE TO ASSESS PATIENT'S SKIN INTEGRITY AND INSTRUCT PATIENT/CAREGIVER ON MEASURES TO PREVENT PRESSURE ULCERS. [code = SKILLED NURSE TO ASSESS PATIENT'S SKIN INTEGRITY AND INSTRUCT PATIENT/CAREGIVER ON MEASURES TO PREVENT PRESSURE ULCERS.]Future Scheduled TestSKILLED NURSE TO PROVIDE TEACHING ON SIGNS AND SYMPTOMS AND MANAGEMENT OF HYPERTENSION. [code = SKILLED NURSE TO PROVIDE TEACHING ON SIGNS AND SYMPTOMS AND MANAGEMENT OF HYPERTENSION.]Future Scheduled TestSKILLED NURSE TO PROVIDE TEACHING/REINFORCEMENT RELATED TO URINARY INCONTINENCE. [code = SKILLED NURSE TO PROVIDE TEACHING/REINFORCEMENT RELATED TO URINARY INCONTINENCE.]Future Scheduled TestSKILLED NURSE MAY COLLECT URINE SAMPLE FOR URINE REAGENT STRIP TESTING AND/OR URINALYSIS WITH C S 1-3 PRN IF INDICATED FOR SIGNS AND SYMPTOMS OF UTI. IF REAGENT STRIP TEST IS POSITIVE FOR UTI, SKILLED NURSE TO TAKE URINE SAMPLE TO LAB FOR URINE C S AND REPORT RESULTS TO PHYSICIAN. [code = SKILLED NURSE MAY COLLECT URINE SAMPLE FOR URINE REAGENT STRIP TESTING AND/OR URINALYSIS WITH C S 1-3 PRN IF INDICATED FOR SIGNS AND SYMPTOMS OF UTI. IF REAGENT STRIP TEST IS POSITIVE FOR UTI, SKILLED NURSE TOTAKE URINE SAMPLE TO LAB FOR URINE C S AND REPORT RESULTS TO PHYSICIAN.]Future Scheduled TestSKILLED NURSE FOR O/A OF SELF-CARE DEFICITS AND TO PROVIDE TEACHING RELATED TO SAFE PROVISION OF ADLS. [code = SKILLED NURSE FOR O/A OF SELF-CARE DEFICITS AND TO PROVIDE TEACHING RELATED TO SAFE PROVISION OF ADLS.] Future Scheduled TestSKILLED NURSE FOR O/A AND TEACHING RELATED TO INCLUDING SIGNS AND SYMPTOMS OF DISEASE PROGRESSION, TREATMENT, AND MANAGEMENT OF POTENTIAL SIDE EFFECTS. [code = SKILLED NURSE FOR O/A AND TEACHING RELATED TO INCLUDING SIGNS AND SYMPTOMS OF DISEASE PROGRESSION, TREATMENT, AND MANAGEMENT OF POTENTIAL SIDE EFFECTS.]Future Scheduled TestPHYSICAL THERAPIST TO EVALUATE PATIENT FOR IMPAIRED GAIT FREQUENT FALLS POOR BALANCE POOR ENDURANCEWEAKNESS [code = PHYSICAL THERAPIST TO EVALUATE PATIENT FOR IMPAIRED GAIT FREQUENT FALLS POOR BALANCE POOR ENDURANCE WEAKNESS]Future Scheduled TestOCCUPATIONAL THERAPIST TO EVALUATE PATIENT FOR NEED FOR STRENGTHENING IMPAIRED ABILITY TO PERFORM ADLS [code = OCCUPATIONAL THERAPIST TO EVALUATE PATIENT FOR NEED FOR STRENGTHENING IMPAIRED ABILITY TO PERFORM ADLS]Future Scheduled TestOCCUPATIONAL THERAPY TO EVALUATE AND TREAT. OCCUPATIONAL THERAPY EVALUATION COMPLETED. NO ADDITIONAL VISITS RECOMMENDED AT THIS TIME. [code = OCCUPATIONAL THERAPY TO EVALUATE AND TREAT. OCCUPATIONAL THERAPY EVALUATION COMPLETED. NO ADDITIONAL VISITS RECOMMENDED AT THIS TIME.]Future Scheduled TestPHYSICAL THERAPIST TO EVALUATE PATIENT SECONDARY TO FUNCTIONAL DEFICITS/SAFETY CONCERNS. P.T. TO ASSESS BEST PRACTICE INTERVENTIONS TO ASSIST PT TO IMPROVE/STABILIZE MEDICAL STATUS AND PREVENT RE-HOSPITALIZATION. MEASURES INCLUDING REVIEW AND IDENTIFICATION OF CONCERNS FOR THE FOLLOWING AREAS: ENVIRONMENTAL SAFETY ISSUES AND FALLS, EQUIPMENT NEEDS, DECLINE OF FUNCTION, PAIN, AND DISEASE MANAGEMENT. P.T. TO ESTABLISH/UPGRADE/DOWNGRADE A HEP AND INSTRUCT PT ON EXERCISE PRECAUTIONS. THE HEP MAY INCLUDE SEATED/SUPINE/STANDING THER EX TARGETING BLE/CORE STRENGTH/FLEXIBILITY AND BALANCE TRAINING ASAPPROPRIATE TO IMPROVE FUNCTIONAL STRENGTH AND BALANCE. PHYSICAL THERAPY TO INSTRUCT PATIENT/CAREGIVER ON SAFE TRANSFER TECHNIQUES USING PROPER BODY MECHANICS AND EQUIPMENT. PHYSICAL THERAPY TO INSTRUCT PATIENT/CAREGIVER ON GAIT TRAINING TECHNIQUES USING APPROPRIATE ASSISTIVE DEVICE, PROPER BODY MECHANICS TO IMPROVE MOBILITY, AND PREVENT INJURY OF PATIENT AND/OR CAREGIVER. PHYSICAL THERAPY TO ASSESS AND RECOMMEND HOME SAFETY ADAPTATIONS AND EDUCATE PATIENT /CAREGIVER ON FALL PREVENTION STRATEGIES. PHYSICAL THERAPY FOR OBSERVATION AND ASSESSMENT OF PAIN, EFFECTIVENESS OF PAIN MANAGEMENT REGIMEN AND SKILLED TEACHING RELATED TO PAIN MANAGEMENT. THERAPIST TO REPORT INCREASED PAIN LEVEL TO PHYSICIAN FOR PROMPT INTERVENTION. PHYSICAL THERAPY TO INSTRUCT PATIENT/CAREGIVER ON BALANCE AND BALANCE STRATEGIES TO IMPROVE SAFE MOBILITY AND REDUCE RISK FOR FALL AND INJURY THERAPIST TO REVIEW PATIENT MEDICATIONS (PRESCRIPTION/OTC). INSTRUCT PATIENT/CAREGIVER ON ALL MEDICATIONS INCLUDING PURPOSE, WHEN TO TAKE, IMPORTANCE OF MEDICATION ADHERENCE, MONITORING OF EFFECTIVENESS, ADVERSE DRUG EVENTS, POSSIBLE SIDE EFFECTS, AND WHEN TO NOTIFY AGENCY OR PHYSICIAN/PROVIDER OF ANY CONCERNS. THERAPIST TO PRO VIDE FUNCTIONAL STRATEGIES/TECHNIQUES FOR MANAGING MEDICATIONS. [code = PHYSICAL THERAPIST TO EVALUATE PATIENT SECONDARY TO FUNCTIONAL DEFICITS/SAFETY CONCERNS. P.T. TO ASSESS BEST PRACTICE INTERVENTIONS TO ASSIST PT TO IMPROVE/STABILIZE MEDICAL STATUS AND PREVENT RE-HOSPITALIZATION. MEASURES INCLUDING REVIEW AND IDENTIFICATION OF CONCERNS FOR THE FOLLOWING AREAS: ENVIRONMENTAL SAFETY ISSUES AND FALLS, EQUIPMENT NEEDS, DECLINE OF FUNCTION, PAIN, AND DISEASE MANAGEMENT. P.T. TO ESTABLISH/UPGRADE/DOWNGRADE A HEP AND INSTRUCT PT ON EXERCISE PRECAUTIONS. THE HEP MAY INCLUDE SEATED/SUPINE/STANDINGTHER EX TARGETING BLE/CORE STRENGTH/FLEXIBILITY AND BALANCE TRAINING APPROPRIATE TO IMPROVE FUNCTIONAL STRENGTH AND BALANCE. PHYSICAL THERAPY TO INSTRUCT PATIENT/CAREGIVER ON SAFE TRANSFER TECHNIQUES USING PROPER BODY MECHANICS AND EQUIPMENT. PHYSICAL THERAPY TO INSTRUCT PATIENT/CAREGIVER ON GAIT TRAINING TECHNIQUES USING APPROPRIATE ASSISTIVE DEVICE, PROPER BODY MECHANICS TO IMPROVE MOBILITY,AND PREVENT INJURY OF PATIENT AND/OR CAREGIVER. PHYSICAL THERAPY TO ASSESS AND RECOMMEND HOME SAFETY ADAPTATIONS AND EDUCATE PATIENT /CAREGIVER ON FALL PREVENTION STRATEGIES. PHYSICAL THERAPY FOR OBSERVATION AND ASSESSMENT OF PAIN, EFFECTIVENESS OF PAIN MANAGEMENT REGIMEN AND SKILLED TEACHING RELATED TO PAIN MANAGEMENT. THERAPIST TO REPORT INCREASED PAIN LEVEL TO PHYSICIAN FOR PROMPT INTERVENTION. PHYSICAL THERAPY TO INSTRUCT PATIENT/CAREGIVER ON BALANCE AND BALANCE STRATEGIES TO IMPROVE SAFE MOBILITY AND REDUCE RISK FOR FALL AND INJURY THERAPIST TO REVIEW PATIENT MEDICATIONS (PRESCRIPTION/OTC). INSTRUCT PATIENT/CAREGIVER ON ALL MEDICATIONS INCLUDING PURPOSE, WHEN TO TAKE, IMPORTANCE OF MEDICATION ADHERENCE, MONITORING OF EFFECTIVENESS, ADVERSE DRUG EVENTS, POSSIBLE SIDE EFFECTS, AND WHENTO NOTIFY AGENCY OR PHYSICIAN/PROVIDER OF ANY CONCERNS. THERAPIST TO PROVIDE FUNCTIONAL STRATEGIES/TECHNIQUES FOR MANAGING MEDICATIONS.]GoalPatient Goal - GET STRONGER, LESS PAIN, NO FALLSGoalProvider Goal - A PLAN OF CARE WILL BE ESTABLISHED THAT MEETS PATIENT'S USP NEEDS AND INCLUDES PATIENT GOAL FOR HOME HEALTH.GoalProvider Goal - PATIENT/CAREGIVER WILL VERBALIZE UNDERSTANDING OF EDUCATION PROVIDED ON MEDICATIONSBY THE END OF THE CERTIFICATION PERIOD.GoalProvider Goal - PATIENT WILL HAVE SUPPORT MEASURES ESTABLISHED TO PREVENT HOSPITALIZATION AND ED USE AND PATIENT/CAREGIVER WILL VERBALIZE/DEMONSTRATE METHODS TO REDUCE AVOIDABLE HOSPITALIZATION AND ED USE BY END OF EPISODE.GoalProvider Goal - PATIENT/CAREGIVER WILL VERBALIZE UNDERSTANDING OF DISCHARGE PLANNING INSTRUCTIONS BY DATE OF DISCHARGE.GoalProvider Goal - PATIENT/CAREGIVER WILL VERBALIZE/DEMONSTRATE EFFECTIVE ENVIRONMENTAL SAFETY AND FALL PREVENTION STRATEGIES, WILL REMAIN SAFE IN THE COMMUNITY, AND WILL BE FREE OF DANGER TO SELF AND OTHERS THROUGHOUT THE CERTIFICATION PERIOD.GoalProvider Goal - PATIENT/CAREGIVER WILL DEMONSTRATE UNDERSTANDING OF PHARMACOLOGIC AND NONPHARMACOLOGIC PAIN CONTROL MEASURES AND PATIENT WILL HAVE IMPROVEMENT IN PAIN INTERFERING WITH ACTIVITY EVIDENCED BY PAIN AT A LEVEL THAT IS ACCEPTABLE TO THE PATIENT AND PAIN LEVEL WITHIN ESTABLISHED PARAMETERS BY END OF CERTIFICATION PERIOD.GoalProvider Goal - PATIENT/CAREGIVER WILL VERBALIZE UNDERSTANDING OF PRESSURE ULCER PREVENTION BY END OF THE EPISODE.GoalProvider Goal - PATIENT/CAREGIVER WILL VERBALIZE SIGNS AND SYMPTOMS OF HYPERTENSION AND WILL BE ABLE TO DEMONSTRATE ABILITY TO MANAGE EXACERBATION BY END OF THE EPISODE.Goal Provider Goal - PATIENT / CAREGIVER WILL VERBALIZE UNDERSTANDING OF EFFECTS OF URINARY INCONTINENCEBY THE END OF THE CERTIFICATION PERIOD.GoalProvider Goal - URINE SPECIMEN WILL BE OBTAINED PRN FOR SIGNS AND SYMPTOMS OF UTI AND RESULTS WILL BE REPORTED TO PHYSICIAN THROUGHOUT THE CERTIFICATION PERIOD.GoalProvider Goal - PATIENT/CAREGIVER WILL VERBALIZE/DEMONSTRATE UNDERSTANDING OF SAFE PROVISION OF ADLS BY THE END OF THE CERTIFICATION PERIOD.GoalProvider Goal - PATIENT/CAREGIVER WILL VERBALIZE/DEMONSTRATE MANAGEMENT OF CANCER/NEOPLASM DISEASE AND THE SIDE EFFECTS OF TREATMENTS DURING THIS EPISODE.GoalProvider Goal - A PHYSICAL THERAPY EVALUATION TO BE COMPLETED WITH RECOMMENDATIONS AND/OR WRITTEN PLAN OF TREATMENT ESTABLISHED FOR PHYSICIAN S SIGNATURE.GoalProvider Goal - OCCUPATIONAL THERAPY EVALUATION TO BE COMPLETED WITH RECOMMENDATIONS AND WRITTEN PLAN OF TREATMENT ESTABLISHED FOR THE PHYSICIAN S SIGNATURE.GoalProvider Goal - NONEGoalProvider Goal - PHYSICAL THERAPY EVALUATION TO BE COMPLETED WITH RECOMMENDATIONS AND/OR WRITTEN TREATMENT PLAN OF CARE ESTABLISHED FOR THE PHYSICIAN S SIGNATURE PATIENT/CAREGIVER VERBALIZES UNDERSTANDING OF THE INITIAL BEST PRACTICE RECOMMENDATIONS. PHYSICIAN TO BE NOTIFIED APPROPRIATE FOR ANY CHANGES OR COMPLICATIONS THROUGHOUT THE CERTIFICATION PERIOD. PATIENT/CAREGIVER WILL PERFORM THERAPEUTIC EXERCISE/S AND DEMONSTRATE PARTICIPATION IN A HOME PROGRAM. PATIENT/CAREGIVER WILL DEMONSTRATE SAFE TRANSFERS USING APPROPRIATE ASSISTIVE DEVICE, BODY MECHANICS AND EQUIPMENT. PATIENT/CAREGIVER WILL DEMONSTRATE IMPROVED GAIT TECHNIQUES TO MINIMIZE RISK OF INJURY. PATIENT/CAREGIVER WILL DEMONSTRATE/VERBALIZE UNDERSTANDING OF RECOMMENDATIONS TO INCREASE SAFETY IN THE HOME AND FALL PREVENTION. INCREASED PAIN OR INEFFECTIVE PAIN CONTROL MEASURES WILL BE IDENTIFIED AND PROMPTLY REPORTED TO THE PHYSICIAN. PATIENT/CAREGIVER WILL DEMONSTRATE EFFECTIVE PAIN MANAGEMENT. PATIENT/CAREGIVER WILL DEMONSTRATE IMPROVED BALANCE AND REDUCE THE RISK OF FALLS AND INJURY. PATIENT/CAREGIVER WILL VERBALIZE/DEMONSTRATE UNDERSTANDING OF MEDICATIONS AND STRATEGIES/TECHNIQUES FOR MEDICATION MANAGEMENT BY THE ENDOF THE CERTIFICATION PERIOD. Progress Notes Progress Notes <paragraph>[Visit Date: 2024 by KIMMY SCHUSTER]:</paragraph><paragraph>THE FLATWORK FINISHER MET WITH THIS PATIENT FACE TO FACE IN HER HOME FOR A SCHEDULED FLATWORK FINISHER EVALUATION. THE PATIENT'S SPOUSE, DINH WAS PRESENT THROUGHTOUT THE VISIT. THE PATIENT WAS IN THE LIVING ROOM RESTING IN HER HOSPITAL BED WHEN THE FLATWORK FINISHER ARRIVED. THE PATIENT WAS LAYING FLAT ON HER BACK. THE PATIENT'S RIGHT ARM WAS CONTRACTURED AND RESTED AT HER RIGHT SIDE. THE PATIENT'S WALKER AND OVER THE BED TABLE WERE NEARBY. THE PATIENT'S WHEELCHAIR WAS NEAR THE FRONT DOOR. THE FLATWORK FINISHER GREETED THE PATIENT. THE PATIENT WAS ALERT AND ORIENTED. THE PATIENT ANSWERED THE EVALUATION QUESTIONS. THE PATIENT IS HOMEBOUND. THE PATIENT DOESN'T DRIVE. THE PATIENT REQUIRES ASSISTANCE WITH TRANSFERS. THE PATIENT IS WHEELCHAIR BOUND. THE PATIENT'S SPOUSE DRIVES HER TO SCHEDULED DOCTOR'S APPOINTMENTS. IT'S DIFFICULT GETTING THE PATIENT IN AND OUT OF THE CAR. THE PATIENT REQUESTED INFORMATION FOR BACK-UP TRANSPORTATION SERVICES. THE FLATWORK FINISHER DISCUSSED THE [facility] TRANSPORTATION PROGRAM THROUGH [facility] FOR NON- EMERGENCY DOCTOR'S APPOINTMENTS WITHIN [facility]. THE PATIENT REPORTED THAT HER SCHEDULED DOCTOR'S APPOINTMENTS ARE IN [facility]. THE FLATWORK FINISHER SUGGESTED THAT THE PATIENT CALL HER MEDICAL INSURANCE PROVIDER TO INQUIRE ABOUT TRANSPORTATION BENEFITS. THE PATIENT AGREED TO FOLLOW THROUGH. THE FLATWORK FINISHER'S MEDICATIONS ARE PICKED UP FROM THE PHARMACY. THE PATIENT DENIED EXPENSIVE CO-PAYS FOR MEDICATIONS. THE PATIENT USES A WHEELCHAIR OUTSIDE OF THE HOME. THE PATIENT IS A FALL RISK. THE FLATWORK FINISHER DISCUSSED SAFETY WITHIN THE HOME SETTING. THE FLATWORK FINISHER DISCUSSED THE [employer] AND IT'S BENEFITS. THE PATIENT DENIED THE NEED FOR A [employer]. THE PATIENT REPORTED HAVING A CELLPHONE AND A LANDLINE PHONE. THE FLATWORK FINISHER DISCUSSED HOME DELIVERED MEALS AND IT'S BENEFITS INCLUDING WELLNESS CHECKS. THE PATIENT DENIED THE NEED FOR HOME DELIVERED MEALS. THE PATIENT STATED THAT HER SPOUSE IS A WONDERFUL COOK. THE FLATWORK FINISHER DISCUSSED IN-MEDICAL REIMBURSEMENT MANAGER SERVICES. THE PATIENT EXPRESSED INTEREST. THE PATIENT IS NOT A . THE PATIENT IS NOT ELIGIBLE FOR MEDICAID BENEFITS. THE FLATWORK FINISHER DISCUSSED PRIVATE DUTY PAID CAREGIVERS THROUGH AGENCIES SUCH VISITING ANGELS, COMFORT KEEPERS, AND HOME INSTEAD. THE PATIENT THANKED THE FLATWORK FINISHER FOR THE INFORMATION. THE PATIENT'S SPOUSE WILL CONTINUE TO PROVIDE CARE FOR THE PATIENT. THE PATIENT REPORTED HAVING A LIMITED FAMILY SUPPORT SYSTEM. THE PATIENT FEELS WELL SUPPORTED BY HER SPOUSE. THE FLATWORK FINISHER PROVIDED THE FAMILY WITH THE [facility] SENIOR DIRECTORY. THE FLATWORK FINISHER ENCOURAGED THE FAMILY TO CALL WITH ANY QUESTIONS OR CONCERNS. THE PATIENT THANKED THE FLATWORK FINISHER. DR. LUKAS ASHBY WAS NOTIFIED. THE [facility] TEAM STAFF WERE NOTIFIED.</paragraph> Encounters Start Date/Time End Date/Time Encounter Type Admission Type Attending [facility] Care Facility Care Department Encounter ID Discharge Date Discharge Status Discharge Condition Discharge Reason Percent Goals Met 2025-09-02 00:00:00 2025-10-31 00:00:00 Outpatient NEW ADMIS ROLANDO SAHU [id number]
== END 2025-09-20 09:47 | disposition home or self-care (01) ==
LOC: PM 09:47
PROVIDERS: Visit Provider Nurse Practitioner
DX: S32.001A Stable burst fracture of unspecified lumbar vertebra, initial encounter for closed fracture (principal); M54.50 Low back pain, unspecified; Z79.891 Long term (current) use of opiate analgesic
CPT/HCPCS: G0463

== ENCOUNTER 2025-10-02 10:43 | Emergency (ER) | payer MEDICARE, OTHER, SELFPAY ==
[2025-10-02] VITALS (9 sets, daily range): BP systolic 118–143; BP diastolic 61–82; PULSE 77–88; TEMP 36.6; O2SAT 94–97; BMI 38.7
--- NOTE | 2025-10-02 11:16 | CT_ITS ---
The [address] [address] Patient Name: MERY CHAN MRN: [id number] date: 1950 Sex: F Assigned Patient Location: ER Current Patient Location: ED.MAIN Accession/Order Number: [id number] Exam Date: 10/02/2025 11:54 Report Date: 10/02/2025 12:48 At the request of: PLACIDO BURGER MD Procedure: CT pelvis wo con CT BONY PELVIS WITHOUT CONTRAST WITH 3-D RECONSTRUCTIONS COMPARISON: 08/10/2025 CLINICAL DATA: Patient fell and has difficulty ambulating and increased low back pain. Spiral axial unenhanced low-dose images were obtained through the pelvis. Coronal and 3-D volume rendered reconstructions were reviewed. This CT exam was performed using one or more following dose reduction techniques: Automated exposure control, adjustment of the mA and/or kV according to patient size, or use of iterative reconstruction technique. There is osteopenia. There is no acute sacral, pelvic or proximal femoral fractures in the kkgks-vt-hjdn. There is a potential left iliac bone island near the superior acetabulum. The SI joints are intact. The hip joint spaces are maintained. No significant hypertrophy is seen. The musculotendinous structures within the xtjgd-qs-bbey show no abnormalities. No hematoma is seen. Atherosclerotic disease is visualized at the aorta and iliac arteries. There are sigmoid diverticula, without associated active inflammation. There is no ascites. CT/CT pelvis wo con IMPRESSION: OSTEOPENIA. NO ACUTE BONY INJURY INVOLVING THE PELVIS. Impression dictated by: Fatou Jade M.D. 10/02/2025 12:48 PM Dictation Location: [facility] Electronically authenticated by: [id number] Y Date: 10/02/2025 12:48
--- NOTE | 2025-10-02 11:16 | CT_ITS ---
The [address] [address] Patient Name: MERY CHAN MRN: [id number] date: 1950 Sex: F Assigned Patient Location: ER Current Patient Location: .MAIN Accession/Order Number: [id number] Exam Date: 10/02/2025 11:54 Report Date: 10/02/2025 12:42 At the request of: PLACIDO BURGER MD Procedure: CT lumbar spine wo con CT THORACIC AND LUMBAR SPINE WITHOUT CONTRAST WITH 3-D RECONSTRUCTIONS CLINICAL DATA: Patient fell yesterday and has increasing low back pain and difficulty ambulating today. History of L2 fracture before . COMPARISON: CT chest 08/16/2025 and lumbar spine 08/13/2025 Spiral axial unenhanced images were obtained through the thoracic and lumbar spine. Sagittal, coronal and 3-D volume rendered reconstructions were reviewed. This CT exam was performed using one or more following dose reduction techniques: Automated exposure control, adjustment of the mA and/or kV according to patient size, or use of iterative reconstruction technique. THORACIC: The bony structures are osteopenic. There are no acute thoracic compression fractures. A small sclerotic focus is again seen at the T2 vertebral body on the left and a tiny focus at the T7 vertebral body on the right. There is also a sclerotic focus at the transverse process of the T5 on the left side. There is no displacement. Tiny endplate spurs are seen. The ribs within the rnqys-ts-jtbe show no acute displaced fractures. The imaged lungs show minor atelectasis and/or scarring. No pleural effusion or pneumothorax is seen within the mvgsc-te-vmiw. There are no paraspinal soft tissue abnormalities. LUMBAR: There is osteopenia. There is redemonstration of compression deformity at L2 with planus configuration and retropulsion of the posterior wall resulting in moderate to severe narrowing of the central canal. There may be minimal interval progression. No new compression fractures are seen. Sclerotic foci are again seen toward the superior endplate of L3 on the left and at the left superior acetabulum. There may be slight retrolisthesis of L1 on L2. The disc spaces are maintained. No prominent hypertrophy is identified. The SI joints are intact. The sacrum and imaged bony pelvis show no additional fractures. There are no new paraspinal soft tissue abnormalities. Atherosclerotic disease is visualized. There are sigmoid diverticulosis. CT/CT lumbar spine wo con IMPRESSION: OSTEOPENIA. L2 COMPRESSION FRACTURE WITH POTENTIAL MINIMAL PROGRESSION. THERE IS CONTINUED BONY RETROPULSION AND SPINAL STENOSIS AT THAT LEVEL. NO NEW THORACIC OR LUMBAR COMPRESSION FRACTURES. Impression dictated by: Fatou Jade M.D. 10/02/2025 12:42 PM Dictation Location: [facility] Electronically authenticated by: [id number] Y Date: 10/02/2025 12:42
--- NOTE | 2025-10-02 11:16 | CT_ITS ---
The [address] [address] Patient Name: MERY CHAN MRN: [id number] date: 1950 Sex: F Assigned Patient Location: ER Current Patient Location: .MAIN Accession/Order Number: [id number] Exam Date: 10/02/2025 11:54 Report Date: 10/02/2025 12:42 At the request of: PLACIDO BURGER MD Procedure: CT lumbar spine wo con CT THORACIC AND LUMBAR SPINE WITHOUT CONTRAST WITH 3-D RECONSTRUCTIONS CLINICAL DATA: Patient fell yesterday and has increasing low back pain and difficulty ambulating today. History of L2 fracture before . COMPARISON: CT chest 08/16/2025 and lumbar spine 08/13/2025 Spiral axial unenhanced images were obtained through the thoracic and lumbar spine. Sagittal, coronal and 3-D volume rendered reconstructions were reviewed. This CT exam was performed using one or more following dose reduction techniques: Automated exposure control, adjustment of the mA and/or kV according to patient size, or use of iterative reconstruction technique. THORACIC: The bony structures are osteopenic. There are no acute thoracic compression fractures. A small sclerotic focus is again seen at the T2 vertebral body on the left and a tiny focus at the T7 vertebral body on the right. There is also a sclerotic focus at the transverse process of the T5 on the left side. There is no displacement. Tiny endplate spurs are seen. The ribs within the jtnzl-yd-xowx show no acute displaced fractures. The imaged lungs show minor atelectasis and/or scarring. No pleural effusion or pneumothorax is seen within the cxqjx-uq-pjcq. There are no paraspinal soft tissue abnormalities. LUMBAR: There is osteopenia. There is redemonstration of compression deformity at L2 with planus configuration and retropulsion of the posterior wall resulting in moderate to severe narrowing of the central canal. There may be minimal interval progression. No new compression fractures are seen. Sclerotic foci are again seen toward the superior endplate of L3 on the left and at the left superior acetabulum. There may be slight retrolisthesis of L1 on L2. The disc spaces are maintained. No prominent hypertrophy is identified. The SI joints are intact. The sacrum and imaged bony pelvis show no additional fractures. There are no new paraspinal soft tissue abnormalities. Atherosclerotic disease is visualized. There are sigmoid diverticulosis. CT/CT thoracic spine wo con IMPRESSION: OSTEOPENIA. L2 COMPRESSION FRACTURE WITH POTENTIAL MINIMAL PROGRESSION. THERE IS CONTINUED BONY RETROPULSION AND SPINAL STENOSIS AT THAT LEVEL. NO NEW THORACIC OR LUMBAR COMPRESSION FRACTURES. Impression dictated by: Fatou Jade M.D. 10/02/2025 12:42 PM Dictation Location: [employer] Electronically authenticated by: [id number] Y Date: 10/02/2025 12:42
[2025-10-02] MEDS: HYDROMORPHONE HCL 0.5 MG/0.5 ML SYRINGE IV ×2 (11:32→16:18)
[2025-10-02 11:54] LABS: Hematocrit 48.6 % (36.0-48.0); Hemoglobin 16.0 g/dL (12.0-16.0); Immature Granulocytes Abs Auto 0.05 10^3/uL (0.00-0.03); Immature Granulocytes Pct Auto 0.6 % (0.0-0.5); Lymphocytes Absolute Auto 0.9 10^3/uL (1.2-3.8); Mean Corpuscular HGB Conc 32.9 g/dL (29.9-35.2); Mean Corpuscular Hemoglobin 34.6 pg (26.7-34.0); Mean Corpuscular Volume 105.0 fL (81.0-99.0); Platelet Count 211 10^3/uL (150-450); Red Blood Count 4.63 10^6/uL (4.20-5.40); White Blood Count 8.6 10^3/uL (4.0-11.0)
--- OUTSIDE RECORDS SUMMARY | 2025-10-02 11:59 | XMS_ITS | Clinical Summary ---
Author Organization [employer] Address [id number] [place] [address] Care Team Providers Care Medical Records Library Professor Name Role Phone RamseyBrunilda barone Altagracia REAL ESTATE EXECUTIVE ASSISTANT-SALVAGE CLERK Primary Care Provider Allergies Active AllergyReactionsCriticalityNoted DateCommentsPiroxicamSwellingMedium 08/16/20199021UraphfyosjrEyslTqa67/02/2016 Medications MedicationSigDispense QuantityRefillsLast FilledStart DateEnd DateStatus acetaminophen [...] index (BMI) of37.0 to 37.9 in adult 08/28/20250683Rbgairrsfxbc54/11/2025losed stable burst fracture of second lumbar fpbozorx29/31/2025Acute kidney ifqzoj5108/17/20255964Bijqkprgxlqv47/31/2025 Zmyhaqwlaexyba02/31/2025igarette bqiibp9108/17/2025VIN III (vulvar intraepithelial neoplasia III)10/04/2019HypertensionRA (rheumatoid arthritis) Resolved Problems ProblemNoted DateDiagnosed DateResolved DateClass 3 severe obesity due to excess calories with serious comorbidity and body mass index (BMI) of40.0 to 44.9 in adult5BMI 45.0-49.9, adult Encounters DateTypeDepartmentCare UidgQyganfxonav13/12/2025Orders Only [facility] [address] [place] [address] Brandon Shah, DO Closed stable burst fracture of second lumbar vertebra with routine healing, subsequent encounter (Primary Dx)5[facility] [address] [place] [address] Brandon Shah, DO Closed stable burst fracture of second lumbar vertebra with routine healing, subsequent encounter (Primary Dx); Rheumatoid arthritis involving right shoulder, unspecified whether rheumatoid factor present ([facility]); Cigarette smoker; Hyponatremia; Class 2 severe obesity due to excess calories with serious comorbidity and body mass index (BMI) of37.0 to 37.9 in adult5[facility] [address] [place] [address] Brandon Shah, DO Closed stable burst fracture of second lumbar vertebra with routine healing, subsequent encounter (Primary Dx); Primary hohqtfckzvbf07/31/2025[facility] [address] [place] [address] Brandon Shah, DO Closed stable burst fracture of second lumbar vertebra with routine healing, subsequent encounter (Primary Dx); Primary hypertension; Acute kidney injury; Hyperkalemia; Hypothyroidism, unspecified type; Class 3 severe obesity due to excess calories with serious comorbidity and body mass index (BMI) of40.0 to 44.9 in adult ([facility]); Cigarette smokerfrom Last 3 Months Family History Medical HistoryRelationNameCommentsAnesthesia problemsNeg HxRelationNameStatus CommentsFatherDeceasedMotherDeceased Social History Tobacco UseTypesPacks/DayYears UsedDateSmoking Tobacco: Every ZhvCxeifrttlr290 Smokeless Tobacco: NeverAlcohol UseStandard Drinks/WeekCommentsNever0 (1 standard drink = 0.6 oz pure alcohol)AUDIT-CAnswerDate RecordedFrequency of Alcohol OmatjzabuywIkmjy76/30/2019Average Number of DrinksNot on file08/16/2019 Frequency of Binge DrinkingNot on file08/16/2019ChildcareAnswerDate Recorded YegctijayAzgnwoy23/12/2019EmploymentAnswerDate RecordedEmploymentUnknown 03/29/2019Purpose - LifeAnswerDate RecordedPurpose and direction in lifeUnknown 1CommentsNoSex and Gender InformationValueDate RecordedSex Assigned at BirthNot on fileLegal DaoEbywgh29/06/2015 11:35 AM EDTGender IdentityNot on fileSexual OrientationNot on file Last Filed Vital Signs Vital SignReadingTime TakenCommentsBlood Eqiipvot416/6208/28/2025 11:41 AM EST Rwkva944108/28/2025 11:41 AM HNSGvzxfbliddx65.8 ??C (98.2 ??F)08/28/2025 11:41 AM ESTRespiratory Ctwb305310/28/2024 11:41 AM ESTOxygen Waubxjzduz76%08/28/2025 11:41 AM ESTInhaled Oxygen Concentration--Vqjrbw187.7 kg (233 lb)08/28/2025 11:41 AM YPTJimabm376.6 cm (5' 6 )08/28/2025 11:41 AM ESTBody Mass Index37.6108/28/2025 11:41 AM EST Plan of Treatment Health MaintenanceDue DateLast DoneCommentsDepression Nbejbmpei20/09/1962Tobacco Rokmkmoxq42/09/1962Adult BMI Follow Up Plan1968DTaP,Tdap and Td Vaccines (1 - Tdap)1969Zoster (Shingles) Vaccine (1 of 2)1969RSV ( or age 60+ yrs) (1 - Risk 60-74 years 1-dose series)2010Fall Risk Screening 2015COVID-19 Vaccine (5 - 2024- season), 09/10/2021, 01/07/2021, Additional history existsInfluenza Vvxesvc27, 08/26/2021, 08/27/2020Adult BMI Oyvzarzgt47 Medical Devices Not on file Insurance Care Teams Team MemberRelationshipSpecialtyStart DateEnd Date Brunilda Rose, REAL ESTATE EXECUTIVE ASSISTANT-SALVAGE CLERK PCP - GeneralNurse Gvhbbmoqdypv61/30/19
--- OUTSIDE RECORDS SUMMARY | 2025-10-02 11:59 | XMS_ITS | Clinical Summary ---
Author Organization [facility] Address [address] [place] [address] Care Team Providers Care Supervisor Dials Name Role Phone Brunilda Rose NP Unavailable Jerry Shah MD Primary Care Provider [phone] Allergies Active AllergyReactionsCriticalityNoted ZyezTlpyreqxMhryafuydHsveoeoq61/19/2024 KggtmapbagyPewuguh93/19/2024 Medications MedicationSigDispense QuantityRefillsLast FilledStart DateEnd DateStatus methotrexate [...] tablet Take 0.6 mg by mouth As vnemzarl45/08/2024ctive alendronate (Fosamax) 70 MG tablet Take 70 [...] Problems ProblemNoted DateDiagnosed DateCigarette nicotine dependence without sniyxzbzlrga29/05/2025 Assessment & Plan (12/20/2024 6:53 AM EST): The patient has been advised of the risks of continued smoking: stroke, [place], all forms of cancer, lung disease, and . Options for quitting smoking include: cold turkey, hypnosis, acupuncture, nicotine replacement meds(gum, lozenges, and patches), Buproprion, and Varenicline. 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 Vuxiiwfygqcw02/26/2024 Overview (05/09/2024): DEXA: 05/08/24: lumbar -2.1 and right femur -3.0 osteoporosis Assessment & Plan (12/20/2024 6:54 AM EST): DEXA was 05/10, -3.0, Current med fosamax Qzvnzttqcnkpfd15/26/2024Lower extremity edema12/13/2023 Assessment & Plan (12/20/2024 6:46 AM EST): Lasix Limit sodium, elevate feet as much as possible Check labs yearly and prn Assessment & Plan (12/13/2023 11:59 AM EST): Stable, no acute swelling Heel spur, left12/13/2023Vitamin B12 tvwszubeor96/26/2024Morbid (severe) obesity due to excess gmrtasco51/26/2024 Assessment & Plan (12/20/2024 6:48 AM EST): Discussed with patient their BMI (actual, verses recommended). We have also discussed lifestyle modifications: attempts to perform physical activity as chronic conditions allow, also to monitor dietary intake: increasing protein/fruits/veggies and lowering carb intake (unless contraindicated). Limit sodas, juices, and sugary drinks. Blbhfszepnw12/26/2024 Assessment & Plan (12/20/2024 6:48 AM EST): Current med on levothyroxine Check labs yearly, prn dose changes, changes in symptoms Assessment & Plan (06/12/2024 11:23 AM EDT): Fatigue, takes thyroid meds daily as directed Assessment & Plan (12/13/2023 11:59 AM EST): No changes to meds Rheumatoid arthritis with rheumatoid factor, hhvitjxjsta32/26/2024 Assessment & Plan (12/20/2024 6:52 AM EST): Continue with dr fernandez Current meds: humira, methotrexate, Assessment & Plan (12/13/2023 12:04 PM EST): Continue with dr fernandez Non-compliant vavnueq1312/13/20236977Vdwziebhluncb96/26/2024 Assessment & Plan (12/20/2024 11:38 AM EST): [...] see what glucose is H/O degenerative disc qihqxkf1912/13/2023Gout12/13/2023 Assessment & Plan (12/20/2024 6:50 AM EST): Current meds allopurinol and colchicine Labs check w Rheumatology Afddhan1312/13/2023 Assessment & Plan (06/12/2024 11:27 AM EDT): [...] A1c test and go from there Allergic /26/2024cute pain of left rkhusljx41/26/2024 Assessment & Plan (12/13/2023 12:02 PM EST): [...] 6:45 AM EST): 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 w 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/onc Body mass index (BMI) 40.0-44.9, adult09/27/2019Chronic idiopathic gout of multiple sites10/06/2016 Assessment & Plan (12/20/2024 6:46 AM EST): Takes allopurinol Labs are follow with Rheumatology Gastroesophageal reflux disease without lhlipydkpap75/20/2016 Assessment & Plan (12/20/2024 11:40 AM EST): [...] without complication, without long-term current use of pihswyb92/Morbid xsapubv27Other specified rheumatoid arthritis, multiple sitesSmoker112/07/2015 12/20/2024 Overview (12/13/2023): 45+ pack years Immunizations ImmunizationAdministration DatesNext DueInfluenza, Seasonal, Quadrivalent, Ntcmhhooqu53/13/2023,08/11/2022,08/26/2021,08/27/2020Pfizer Purple Cap SARS-CoV-2 Zshozznvvjx34/24/2021,01/07/2021,1Pneumococcal Conjugate PCV 13110/27/2019Pneumococcal Polysaccharide VDZO7619/11/0180WBSK-ETR-6 (COVID-19) vaccine, mRNA, spike protein, LNP, PF, ind[place]-sucrose, 30 mcg/0.3 mL07/30/2023 SARS-COV-2 (COVID-19) vaccine, mRNA, spike protein, LNP, bivalent, preservative free, 30 mcg/0.3 mLdose, [place]-sucrose xlwfhyfllzp68/25/2022 Social History Tobacco UseTypesPacks/DayYears UsedDateSmoking Tobacco: Every [...] relatives?Once a week12/13/2023How often do you attend uatsdin or anabaptism services?Never12/13/2023o you belong to any clubs or organizations such as uatsdin groups, unions, fraternal or athletic groups, or school groups?Yes12/13/2023How often do you attend meetings of the clubs or organizations you belong to?Never12/13/2023re you , , , , never , or living with a partner?Vikrglo1612/13/2023UDIT-C AnswerDate RecordedQ1: How often do you have [...] hard at all12/13/2023 PHQ-2AnswerDate RecordedPatient Health Questionnaire-2 Oeovx880[facility] [place] [facility] - Occupational Stress QuestionnaireAnswerDate RecordedDo you feel stress - tense, restless, nervous, or anxious, or unable to sleep at night because yourmind is troubled all the time - these days?Only a kxcsfw5012/13/2023Exercise Vital SignAnswerDate RecordedOn average, how many days [...] steady place to sleep or slept in [facility] (including now)?No12/13/2023CommentsUnknownSex and Gender InformationValueDate RecordedSex Assigned at BirthNot on fileLegal SexFemale 06/16/2023 9:04 AM EDTGender IdentityNot on fileSexual OrientationNot on file Last Filed Vital Signs Vital SignReadingTime TakenCommentsBlood Xztagqqs722/80012/20/2024 10:30 AM EST Xegfo928312/20/2024 10:30 AM BWPNedqbddfdrb06.8 ??C (98.3 ??F)12/20/2024 10:30 AM ESTRespiratory Dxkh151212/20/2024 10:30 AM ESTOxygen Powwekndhv33%12/20/2024 10:30 AM ESTInhaled Oxygen Concentration--Gtydba176 kg (244 lb 6.4 oz)12/20/2024 10:30 AM VGFItmeuy504.6 cm (5' 4 )12/20/2024 10:30 AM ESTBody Mass Index41.95 12/20/2024 10:30 AM EST Plan of Treatment Not on file Insurance Care Teams Team MemberRelationshipSpecialtyStart DateEnd Date Jerry Shah MD PCP - GeneralFamily Medicine12/06/23 Brunilda Rose NP Nurse PractitionerFamily Medicine10/18/22
--- OUTSIDE RECORDS SUMMARY | 2025-10-02 11:59 | XMS_ITS | Clinical Summary ---
Author Organization [facility] Address [address] [place], [place] [address] Care Team Providers Care Merchandise Displayer Name Role Phone Katherine Slater MD, Armani Hamilton Unavailable [phone] Brunilda Rose CNP Primary Care Provider [phone] Allergies Active AllergyReactionsCriticalityNoted FwppKohfqhfsFdigdtejmvbMyic82/02/2016 Medications MedicationSigDispense QuantityRefillsLast FilledStart DateEnd DateStatus methotrexate [...] once daily.03/30/2017Active Active Problems ProblemNoted DateDiagnosed DateMorbid fbjirnw1010/06/2016Other specified rheumatoid arthritis, multiple sites10/06/2016Chronic idiopathic gout of multiple sites10/06/2016Gastroesophageal reflux disease without esophagitis 10/06/20165872Ollrar48/20/2016 Overview (10/06/2016): 45+ pack years Family History RelationStatusCommentsFatherDeceasedMotherDeceased Social History Tobacco UseTypesPacks/DayYears UsedDateSmoking Tobacco: Every UqoBnsnwmunjs984 Smokeless Tobacco: Never Tobacco Cessation:Ready to Q uit: No; Counseling Given: Yes Alcohol UseStandard Drinks/WeekCommentsNo0 (1 standard drink = 0.6 oz pure alcohol)Area Deprivation IndexAnswerDate RecordedNational Score (1-100), lower number is lower riskNot on file2020State Score (1-10), lower number is lower riskNot on file2020Data from: https://www.neighborhoodatlas.medicine.[facility].edu/. Last address used for calculationNot on file2020CommentsNoSex and Gender Information ValueDate RecordedSex Assigned at BirthNot on fileLegal UzaScqklm32/01/2016 4:57 PM ESTGender IdentityNot on fileSexual OrientationNot on file Last Filed Vital Signs Vital SignReadingTime TakenCommentsBlood Gglgxhro932/8210/21/2018 10:45 AM EST Akayx564010/21/2018 10:45 AM TZCLhxnagjjtvx20.7 ??C (98 ??F)10/21/2018 10:45 AM ESTRespiratory Uetk162110/21/2018 10:45 AM ESTOxygen Meuykrtsqd63%10/21/2018 10:45 AM ESTInhaled Oxygen Concentration--Shwchb158.9 kg (268 lb 12.8 oz)10/21/2018 10:45 AM MSDKfmrdh254.1 cm (5' 5 )10/21/2018 10:45 AM ESTBody Mass Index44.73 10/21/2018 10:45 AM EST Plan of Treatment Health MaintenanceDue DateLast DoneCommentsAnxiety Benduxugp07/09/1968Depression Claunjlto88/09/1968Hepatitis C Rojxhmdzt75/09/1968DTaP,Tdap,Td Vaccine (1 - Tdap)1969Mammogram Jmamipomb00/09/1990CT Ibbqfbyjpltc69/09/1995Cologuard (FIT-DNA)09/25/19950674Vvvazzksqzi16/09/1995Colorectal Cancer Xymuwzbih10/09/1995 Fecal Occult Blood1995Lipid Caauxosus80/09/3880Nmyaafnxputog11/09/1995 Pneumococcal Vaccine: 50+ (1 of 1 - PCV)2000Shingrix Vaccine (1 of 2) 2000Bone Density Iosmtbhgu33/09/2015Diabetes Dkvfgwqik14 Advance Directive Tenibyhjzr94/01/2025ovid-19 Vaccine (1 - 2024- season) 2025Influenza Vaccine (#1)2025RSV Vaccine (1 - 1-dose 75+ series) 2025 Procedures Procedure NamePriorityDate/TimeAssociated DiagnosisCommentsBASIC METABOLIC PANEL (EU,FV,HL,BRIA,MM,SP)ASAP10/30/2016 7:24 AM EST from Last 3 Months or Most Recently Relevant to Health Maintenance Results * (ABNORMAL) BASIC METABOLIC PANEL (AV,EU,FV,HL,BRIA,MM,SP) (10/30/2016 7:24 AM EST)ComponentValueRef RangeTest MethodAnalysis TimePerformed AtPathologist ZqovofgozWdhsgwq243(H)65 - 100 mg/dL10/30/2016 8:58 [facility] BUN98 - 25 mg/dL10/30/2016 8:58 AM ESTFA[facility] LABORATORYCreatinine0.63(L)0.70 - 1.40 mg/dL10/30/2016 8:58 AM [facility] OFYVJGVOESHwtfug002586 - 148 mmol/L 10/30/2016 8:58 AM ESTFAIR[facility] LABORATORYPotassium3.83.5 - 5.0 mmol/L 10/30/2016 8:58 AM [facility] MMLIIMESIIQejvppjo3016 - 110 mmol/L10/30/2016 8:58 AM [facility] WVORJJJBIIMK36193 - 32 mmol/L10/30/2016 8:58 AM EST [facility]ORATORYAnion Rut709 - 18 mmol/L10/30/2016 8:58 AM ESTFAIR[facility] LABORATORYCalcium8.58.5 - 10.5 mg/dL10/30/2016 8:58 AM ESTFA[facility] Glom Filtration Rate (AA)>60>60010/30/2016 8:58 AM ESTFAIRVIEW LABORATORYGlom Filtration Rate (SENAIT)>60>60 .10/30/2016 8:58 AM ESTFAIRVIEW LABORATORYSpecimen (Source)Anatomical Location / LateralityCollection Method / VolumeCollection TimeReceived TimeBlood specimen (specimen)BLOOD SPECIMEN / Zclqpfx5710/30/2016 7:24 AM EST10/30/2016 7:25 AM EST Narrative Authorizing ProviderResult TypeResult StatusLatonya Reyes MDLABORATORY REGIONALFinal ResultPerforming OrganizationAddressCity/State/ZIP CodePhone Number [facility] [address] [phone] from Last 3 Months or Most Recently Relevant to Health Maintenance Insurance Care Teams Team MemberRelationshipSpecialtyStart DateEnd Date Brunilda Rose CNP PCP - GeneralFamily Medicine04/15/18 Armani Murphy Jr., MD Zaqlxraewgoe92/20/16
[2025-10-02 12:14] LABS: Alanine Aminotransferase 25 U/L (14-59); Albumin Globulin Ratio 0.8; Albumin Level 3.2 g/dL (3.4-5.0); Alkaline Phosphatase 128 U/L (46-116); Anion Gap 13.7; Aspartate Amino Transferase 24 U/L (15-37); Blood Urea Nitrogen 7.0 mg/dL (7.0-18.0); Calcium 9.0 mg/dL (8.5-10.1); Carbon Dioxide 28.5 mmol/L (21.0-32.0); Chloride 99 mmol/L (98-107); Estimated GFR (African America >60 (>=60 mL/min/1.73m^2); Estimated GFR (Non-African Ame >60 (>=60 mL/min/1.73m^2); Globulin 3.8 g/dL; Glucose 131 mg/dL (74-106); Potassium 4.2 mmol/L (3.5-5.1); Sodium 137 mmol/L (136-145); Total Protein 7.0 g/dL (6.4-8.2)
--- NOTE | 2025-10-02 13:26 | ED.BACK1 ---
HPI HPI - Back Pain/Injury General Chief Complaint: Back Pain/Injury Stated Complaint: BACK PAIN Time Seen by Provider: 10/02/25 10:51 Source: patient Mode of arrival: ambulance History of Present Illness HPI Narrative: Patient is a 75-year-old female who is morbidly obese with a history of L2 compression fracture, that was just discharged around [facility] almost few weeks ago to go back to [place] [facility], after she was admitted here for back pain Patient presenting to us with back pain that is severe, she could not get out of the bed this morning, she did not remember any falling but she mentioned that yesterday she was trying to get out of the toilet seat and apparently felt like she slipped and went back sitting on the toilet, at that time she was able to be helped by her to go to bed but this morning when she woke up she could not get out of the bed, the patient did not have any incontinence of urine or stool She does not have any weakness in the lower extremity and the back pain radiates only to the hip level, the patient pain is mostly to the left this time more than the right side There is no other injuries or any other concerns Related Data Home Medications ?Medication ?Instructions ?Recorded ?Confirmed alendronate 70 mg tablet 70 mg PO QWEEK 08/10/25 08/13/25 allopurinol 300 mg tablet 300 mg PO DAILY 08/10/25 08/13/25 colchicine 0.6 mg tablet 0.6 mg PO DAILY 08/10/25 08/13/25 folic acid 1 mg tablet 1 mg PO DAILY 08/10/25 08/13/25 furosemide 40 mg tablet 40 mg PO DAILY 08/10/25 08/13/25 gabapentin 300 mg capsule 300 mg PO BID 08/10/25 08/13/25 levothyroxine 150 mcg tablet 150 mcg PO DAILY 08/10/25 08/13/25 lisinopril 10 mg tablet 10 mg PO DAILY 08/10/25 08/13/25 methotrexate sodium 2.5 mg tablet 25 mg PO QWEEK 08/10/25 08/13/25 omeprazole 20 mg capsule,delayed 20 mg PO DAILY 08/10/25 08/13/25 release prednisone 5 mg tablet 5 mg PO DAILY 08/10/25 08/13/25 docusate sodium 100 mg capsule 100 mg PO DAILY 08/13/25 08/13/25 (Colace) Previous Rx's ?Medication ?Instructions ?Recorded amlodipine 5 mg tablet 5 mg PO QD #0 tabs 08/17/25 cyclobenzaprine 10 mg tablet 5 mg (1/2 x 10 mg) PO TID #0 tabs 08/17/25 nicotine 14 mg/24 hr daily 14 mg transdermal QD #0 ea 08/17/25 transdermal patch oxycodone 5 mg tablet 5 mg PO Q4H PRN Pain #15 tabs 08/17/25 polyethylene glycol 3350 17 gram 17 g PO QD PRN Constipation #0 ea 08/17/25 oral powder packet sennosides 8.6 mg-docusate sodium 1 tab PO BID #0 tabs 08/17/25 50 mg tablet oxycodone-acetaminophen 5 mg-325 1 tab PO TID PRN pain #70 tabs 09/20/25 mg tablet (Percocet) Allergies Allergy/AdvReac Type Severity Reaction Status Date / Time Penicillins Allergy Intermediate swelling Verified 10/02/25 10:51 piroxicam (From [employer]) Allergy Intermediate swelling Verified 10/02/25 10:51 Opioid HPI Opioid Management Most Recent Opioid Data: Last Pain Scale 2 Today, 16:18 Last Pain Intensity 0 09/05/25, 14:05 Last MAR Pain Assessment Today, 16:18 Last ORT Total Score 0 08/13/25, 09:15 Last ORT Risk Category Low Risk 08/13/25, 09:15 Review of Systems ROS Status of ROS 10 or more systems reviewed and unremarkable except as noted in history and below [facility] Medical History Diverticulitis ?K57.92 - Diverticulitis of intestine, part unspecified, without perforation or abscess without bleeding (ICD-10) Osteoarthritis (arthritis due to wear and tear of joints) ?M19.90 - Unspecified osteoarthritis, unspecified site (ICD-10) Vaginal cancer ?C52 - Malignant neoplasm of vagina (ICD-10) Hyperthyroidism ?E05.90 - Thyrotoxicosis, unspecified without thyrotoxic crisis or storm (ICD-10) Gout ?M10.9 - Gout, unspecified (ICD-10) Hypertension ?I10 - Essential (primary) hypertension (ICD-10) Rheumatoid arthritis ?M06.9 - Rheumatoid arthritis, unspecified (ICD-10) Surgical History History of partial hysterectomy ?Z90.711 - Acquired absence of uterus with remaining cervical stump (ICD-10) Social History Within the past year, how often did you have a drink containing alcohol: never Score interpretation: A score less than 3 is consistent with normal alcohol consumption. 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 Highest level of school completed/degree received: high school graduate Are you now , , , , never or living with a partner: In a typical week, how many times do you talk on the telephone with family, friends, or neighbors: 3 or more times per week How often do you get together with friends or relatives: 3 or more times per week How often do you attend lutheran or uatsdin services: never Do you belong to any clubs or organizations such as lutheran groups unions, [employer] or athletic groups, or school groups: no Total score: 2 Score interpretation: A score of greater than or equal to 2 indicates the lowest level of social isolation. Little interest or pleasure in doing things: not at all Feeling down, depressed, or hopeless: not at all Feel stressed/tense/nervous/anxious/difficulty sleeping: not at all Gender Identity: female Exam Narrative Exam Narrative: Nurses notes and vital signs reviewed and patient is not hypoxic. General: Well-appearing and in distress due to pain Skin: Warm, dry, no pallor noted. No rash. Head: Normocephalic, atraumatic. Neck: Supple, non-tender. Cardiovascular: Regular Rate and Rhythm without murmur, gallop or rub. Respiratory: No accessory muscle use or respiratory distress. Lungs are clear to auscultation, no wheezing, rales or rhonchi Back: Patient have paraspinal muscle tenderness and I was not able to ambulate fully that for the intervertebral line tenderness that the patient is complaining of pain in the lower back that is severe and generally in the whole lower back. He was not able to sit up for me to evaluate the back but I was able to evaluate from sideways, Musculoskeletal: normal ROM, no calf or popliteal tenderness, no lower extremity edema/swelling GI: Abdomen is soft, non-distended. Normal bowel sounds. No masses appreciated. No tenderness to palpation. No rebound, guarding, or rigidity noted. Neurological: A&O x4. No cranial nerve dysfunction observed. No truncal ataxia. Moves all extremities. Psychiatric: Cooperative and interactive. Normal mood and affect. Constitutional Vital Signs, click to edit/add: Last Vital Signs Temp 97.8 F 10/02/25 10:51 Pulse 77 10/02/25 12:22 Resp 18 10/02/25 12:22 BP 143/78 H 10/02/25 12:22 Pulse Ox 97 10/02/25 12:22 O2 Del Method Room Air 10/02/25 12:22 Course Vital Signs Vital signs: Vital Signs Temperature 97.8 F 10/02/25 10:51 Pulse Rate 88 10/02/25 10:51 Respiratory Rate 18 10/02/25 10:51 Blood Pressure 129/82 10/02/25 10:51 Pulse Oximetry 95 10/02/25 10:51 Oxygen Delivery Method Room Air 10/02/25 10:51 Temperature 97.8 F 10/02/25 10:51 Pulse Rate 77 10/02/25 12:22 Respiratory Rate 18 10/02/25 12:22 Blood Pressure 143/78 H 10/02/25 12:22 Pulse Oximetry 97 10/02/25 12:22 Oxygen Delivery Method Room Air 10/02/25 12:22 MDM - Back Pain/Injury MDM Narrative Medical decision making narrative: The patient had no alarming symptoms that she was able to lift both legs equally there is no numbness or tingling down her legs she mentioned that the pain stopped at the hip level No incontinence of urine or stool and the patient have no alarming symptoms at the moment but her CAT scan shows a picture that is similar to what she had before with retropulsion of 6 mm of a burst fracture at L2 possible moderate to severe spinal cord stenosis This picture was seen there before in July but with the patient's recurring pain and the fact that the patient pain is not easily controlled specially that she needed Dilaudid here for help and she is already taking oxycodone Initially the plan to admit the patient to this hospital after discussing the case with Dr. Jones in the hospitalist service, he requested that the patient get transferred to [facility] for further evaluation by pain management and neurosurgery After discussing the case with Dr. Logan neurosurgery the patient was accepted to be transferred with no need for surgery at the moment but the patient will definitely need an MRI when she gets there and she have to be in complete bedrest at the moment The patient case was discussed with who accepted the patient in [facility] She did had CBC and chemistry here that showed no acute pathology Lab Data Labs: Lab Results 10/02/25 Range/Units 11:45 WBC 8.6 (4.0-11.0) 10^3/uL RBC 4.63 (4.20-5.40) 10^6/uL Hgb 16.0 (12.0-16.0) g/dL Hct 48.6 H (36.0-48.0) % MCV 105.0 H (81.0-99.0) fL MCH 34.6 H (26.7-34.0) pg MCHC 32.9 (29.9-35.2) g/dL RDW 15.0 (11.0-15.0) % Plt Count 211 (150-450) 10^3/uL MPV 8.6 L (9.5-13.5) fL Neut % (Auto) 80.6 H (43.0-75.0) % Lymph % (Auto) 10.0 L (20.5-60.0) % Nelson % (Auto) 6.4 (1.7-12.0) % Eos % (Auto) 2.3 (0.9-7.0) % Baso % (Auto) 0.1 L (0.2-2.0) % Neut # (Auto) 7.0 H (1.4-6.5) 10^3/uL Lymph # (Auto) 0.9 L (1.2-3.8) 10^3/uL Nelson # (Auto) 0.6 (0.3-0.8) 10^3/uL Eos # (Auto) 0.2 (0.0-0.7) 10^3/uL Baso # (Auto) 0.0 (0.0-0.1) 10^3/uL Abs Immat Gran (auto) 0.05 H (0.00-0.03) 10^3/uL Imm/Tot Granulo (auto) 0.6 H (0.0-0.5) % Sodium 137 (136-145) mmol/L Potassium 4.2 (3.5-5.1) mmol/L Chloride 99 (98-107) mmol/L Carbon Dioxide 28.5 (21.0-32.0) mmol/L Anion Gap 13.7 BUN 7.0 (7.0-18.0) mg/dL Creatinine 0.68 (0.55-1.02) mg/dL Est GFR ( Amer) >60 (>=60 mL/min/1.73m^2) Est GFR (Non-Af Amer) >60 (>=60 mL/min/1.73m^2) BUN/Creatinine Ratio 10.3 Glucose 131 H (74-106) mg/dL Calcium 9.0 (8.5-10.1) mg/dL Total Bilirubin 0.8 (0.2-1.0) mg/dL AST 24 (15-37) U/L ALT 25 (14-59) U/L Alkaline Phosphatase 128 H (46-116) U/L Total Protein 7.0 (6.4-8.2) g/dL Albumin 3.2 L (3.4-5.0) g/dL Globulin 3.8 g/dL Albumin/Globulin Ratio 0.8 Discharge Plan Discharge Chief Complaint: Back Pain/Injury Clinical Impression: Burst fracture of lumbar vertebra, Spinal stenosis, Intractable back pain Patient Disposition: [facility] Time of Disposition Decision: 16:35
== END 2025-10-02 18:08 | disposition short-term general hospital (02) ==
PROVIDERS: Emergency Provider Emergency Medicine; PCP Nurse Practitioner
DX: S32.021G Stable burst fracture of second lumbar vertebra, subsequent encounter for fracture with delayed healing (principal); M48.062 Spinal stenosis, lumbar region with neurogenic claudication; M54.89 Other dorsalgia
CPT/HCPCS: 36415; 72128; 72131; 72192; 76376; 80053; 85025; 96374; 96376; 99285; J1171